=== PATIENT | male | born 1955 | race Caucasian/White ===

== ENCOUNTER 2024-08-17 13:37 | Outpatient (CLI) | payer MEDICARE, MEDICAID, SELFPAY ==
--- OUTSIDE RECORDS SUMMARY | 2018-12-31 14:56 | XMS_ITS | Encounter Summary ---
Author Organization [place] [address] Care Team Providers Care Social And Political Studies Professor Name Role Phone Viridiana Oropeza MD Primary Care Provider [phone] Encounter Details Date Type Department Care Team (Latest Contact Info) Description 12/31/2018 1:56 PM [facility] Hospital Encounter [facility] Referral Lab 1 [place] [address] Fahad Kennedy MD [address] [place] [address] Pain in right hip Social History Tobacco Use Types Packs/Day Years Used Date Smoking Tobacco: Never Passive Smoke Exposure: Never Smokeless Tobacco: Never Alcohol Use Standard Drinks/Week Comments No 0 (1 standard drink = 0.6 oz pur e alcohol) [facility] Utilities Answer Date Recorded In the past 12 months has [employer] electric, gas, oil, or water company threatened to shut off services in your home? No 07/22/2024 Overall Financial Resource Strain (CARDIA) Answe r Date Recorded How hard is it for you to pa y for the very basics like food, housing, medical care, and heating? Not hard at all 07/22/2024 PHQ-2 Answer Date Recorded PHQ-2 Total Score 0 07/22/2024 [facility] [place] of Occupat ional Health - Occupational Stress [...] things needed for daily living? No 01/21/2020 [facility] IP Transportation Answer D ate Recorded In [...] 4:08 PM EDT Genesis Dumont RN * [place] Suicide Severity Rating Scale (Q shift for [...] 6) 0 07/21/2024 4:08 PM EDT Genesis Dumont, DAVID 6. Have you ever done anythi ng, [...] documented in this encounter Plan of Treatment Upcoming Encounters Date Type Department Care Team (Late st Contact Info) Description 09/16/2024 12:15 PM EDT Office Visit [facility] [address] [place] [address] Viridiana Oropeza MD [address] [place] [address] Scheduled Orders Name Type Priority Associated Diagnoses [...] documented as of this encounter Care Teams Social And Political Studies Professor Relationship Specialty Start Date End Date Viridiana Oropeza MD [address] [place] [address] PCP - General 01/19/09 documented as of this encounter
--- OUTSIDE RECORDS SUMMARY | 2024-06-22 11:30 | XMS_ITS | Encounter Summary ---
Author Organization [place] [address] Care Team Providers Care Resident Care Associate Name Role Phone Viridiana Oropeza MD Primary Care Provider [phone] Pankaj Navarro MD Unavailable [phone] Reason for Visit * Reason Comments Controlled Substance Monitoring Here tod ay for his CSV. Leg Swelling Bilateral calf, ankl e and foot swelling. He also states that his calf's have been itching as well. 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 No 08/29/2023 Overall Financial Resource Strain (CARDIA) Answe r Date Recorded How hard is it for you to pa y for the very basics like food, housing, medical care, and heating? Not hard at all 08/29/2023 PHQ-2 Answer Date Recorded PHQ-2 Total Score 0 03/23/2024 [facility] - Occupational Stress Questionnaire Answer Date Recorded Do you feel stress - tense, restless, nervous, or anxious, or unable to sleep at night because your mind is troubled all the time - these days? Not at all 08/29/2023 Exercise Vital Sign Answer Date Recorde d On average, how many days pe r week do you engage in moderate to strenuous exercise (like a brisk walk)? 0 days 08/29/2023 On average, how many minutes do you engage in exercise at this level? 0 min 08/29/2023 Hunger Vital Sign Answer Date Recorded Within the past 12 months, y ou worried that your food would run out before you got the money to buy more. Never true 08/29/19 24 Within the past 12 months, t he food you bought just didn't last and you didn't have money to get more. Never true 08/29/2023 PRAPARE - Transportation Answer Date Re corded In the past 12 months, has l ack of transportation kept you from medical appointments or from getting medications? No 01/11 In the past 12 months, has l ack of transportation kept you from meetings, work, or from getting things needed for daily living? No 01/21/2020 [facility] IP Transportation Answer D ate Recorded In the past 12 months, has l ack of reliable transportation kept you from medical appointments, meetings, work or from getting things needed for daily living? 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 Answer Date of Assessment Author No 03/23/2024 10:00 AM Tiffany Mccullough CCMA * Is the person blind or does he/she have serious difficulty seeing even when wearing glasses? Answer Date of Assessment Author No 03/23/2024 10:00 AM Tiffany Mccullough CCMA * Does this person have serious difficulty walking or climbing stairs? Answer Date of Assessment Author Yes 03/23/2024 10:00 AM Tiffany Mccullough CCMA * Does this person have difficulty dressing or bathing? Answer Date of Assessment Author No 03/23/2024 10:00 AM Tiffany Mccullough CCMA * Because of a physical, mental or emotional condition, does this person have difficulty doing errands alone such as visiting a doctor's office or shopping? Answer Date of Assessment Author No 03/23/2024 10:00 AM Tiffany Mccullough CCMA documented as of this encounter Mental Status * Because of a physical, mental or emotional condition, does this person have serious difficulty concentrating, remembering or making decisions? Answer Entry Date Author No 03/23/2024 10:00 AM Tiffany Mccullough CCMA documented in this encounter Ordered Prescriptions Prescription Sig Dispense Quantity Refills Last Filled Start Date End Date triamcinolone (KENALOG) 0.1 % Top CreamIndications:D ermatitis Apply topically 2 times daily. Take a 2 week break after each 2 weeks of use. 80 g 2 06/22/2024 documented in this encounter Progress Notes * Viridiana Oropeza MD - 06/22/2024 11:30 AM EDT Chief Complaint Patient presents with Controlled Substance Monitoring Here today for his CSV. Leg Swelling Bilateral calf, ankle and foot swelling. He also states that his calf's have been itching as well. Was in ER for swollen legs. Given torsemide and K for a week but hasn't picked up his rx. Also c/o itching in his legs that started before surgery. He has tried some otc salve. Not helping.Has a hard time not scratching it. - was supposed to wear macrina bandage wraps but had to take them off as they made the itching worse. Controlled Med Follow-Up - Pt here for Chronic Pain Syndrome Pharmacy:[id number] - [place] [address] [phone] [phone] Controlled Contract Updated / Signed 08/17/2022- [facility] Informed Consent Updated / Signed 08/17/2022 UDS 06/22/2024 - Pending Omid as expected 06/22/2024 Care gap audit completed by Keerthi Wisdom RN on 09/24/2023. Controlled Substance Prescribing Management: The controlled substance flow sheet has been reviewed. Takes medication daily: yes. Symptoms controlled and stable with current medication: yes. Symptom level 8/10 when severe and 2/10 when not severe. Side effects from medication: no Avoids alcohol while taking this medication: yes. Has tried non-controlled substances that were unsuccessful for symptom control. No evidence of abuse/diversion. Pt informed and aware of medication's potential for abuse/dependence. Has not followed up with another provider since last evaluation for this issue. Has been compliant with elements of the controlled substance contract and recommendations outlined during last assessment. Review of Systems Constitutional: Negative. HENT: Negative. Respiratory: Negative. Cardiovascular: Negative. Gastrointestinal: Negative. Psychiatric/Behavioral: Negative. See above, otherwise noncontributory. See time date stamps in the EMR for other pertient history components reviewed as part of today's encounter. Objective: Vitals: 06/22/24 1136 BP: 114/64 Pulse: 82 SpO2: 95% Weight: (!) 301 lb (136.5 kg) Height: 5' 9 (1.753 m) Physical Exam Constitutional: Appearance: He is well-developed. HENT: Head: Normocephalic and atraumatic. Eyes: Conjunctiva/sclera: Conjunctivae normal. Pupils: Pupils are equal, round, and reactive to light. Cardiovascular: Rate and Rhythm: Normal rate and regular rhythm. Heart sounds: Normal heart sounds. No murmur heard. Pulmonary: Effort: Pulmonary effort is normal. Breath sounds: Normal breath sounds. Abdominal: General: Bowel sounds are normal. Palpations: Abdomen is soft. Tenderness: There is no abdominal tenderness. Musculoskeletal: General: Normal range of motion. Cervical back: Normal range of motion and neck supple. Skin: General: Skin is warm and dry. Neurological: Mental Status: He is alert and oriented to person, place, and time. Psychiatric: Behavior: Behavior normal. Assessment/Plan: Diagnoses and all orders for this visit: Dermatitis - triamcinolone (KENALOG) 0.1 % Top Cream; Apply topically 2 times daily. Take a 2 week break aftereach 2 weeks of use. Dispense: 80 g; Refill: 2 - stop scratching. Avoid heat and hot water. - no specific triggers - shouldn't be due to atbx etc since it predates the start of those. - no other new meds. 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 On oral amox for 3 months. Next evaluation will be in 3 months. By next evaluation, treatment failure will be considered if side effects or acceptable progress toward functional goals not achieved documented in this encounter Plan of Treatment Upcoming Encounters Date Type Department Care Team (Late st Contact Info) Description 09/16/2024 12:15 PM EDT Office Visit [facility] [address] [place] [address] Viridiana Oropeza MD [address] [place] [address] documented as of this encounter Goals Goal Patient Goal Type Associated Problems Recent Progress Patient-Stated? Author Blood Pressure < 140/90 Blood Pressure 128/56(2024 9:08 AM EDT) No Julia Chicas, RN BMI (Calculated) < 30 General 41.9(07/22/19 9:49 PM EDT) Julia Gonzalez, RN Maintain a healthy diet, exercise regularly and maintain an ideal body weight General No Kristi Balderrama CCMA HEMOGLOBIN A1C < 7.0 Result Component 6.4( 11:37 AM EDT) No Julia Chicas, RN documented as of this encounter Procedures Procedure Name Priority Date/Time Associated Diagnosis Comments COMPLIANCE OPIOID PANEL QUANT ONLY, URINE Routine 06/22/2024 12:16 PM EDT Chronic pain syndrome DDD (degenerative disc disease), cervical Medication monitoring encounter documented in this encounter Results * (ABNORMAL) COMPLIANCE OPIOID PANEL QUANT ONLY, URINE (06/22/2024 12:16 PM EDT) Medications Expected Oxycodone 06/23/2024 5:38 PM EDT [facility] Hydrocodone <50 Cutoff 50 ng/mL ng/mL 06/23/2024 5:38 PM EDT [facility] Comment:e.g., Lorcet, Lortab , Vicodin, [place]; Minor Metabolite of Codeine Dihydrocodeine <50 Cutoff 50 ng/mL ng/mL 06/23/2024 5:38 PM EDT [facility] Comment:e.g., Didrate, Parzo ne, Parlor, Synalgos; Metabolite of Hydrocodone Norhydrocodone <50 Cutoff 50 ng/mL ng/mL 06/23/2024 5:38 PM EDT [facility] Comment:Metabolite of Hydroc odone Hydromorphone <50 Cutoff 50 ng/mL ng/mL 06/23/2024 5:38 PM EDT [facility] Comment:e.g., Dilaudid; also Metabolite of Hydrocodone and Minor Metabolite of Morphine Hydromorphone Glucuronide <50 Cutoff 50 ng/mL ng/mL 06/23/2024 5:38 PM EDT [facility] Comment:Metabolite of Hydrom orphone Oxycodone 1,269(H) Cutoff 50 ng/mL ng/mL 06/23/2024 5:38 PM EDT [facility] Comment:e.g., Oxycontin, Per cocet, Endocet, Percodan, Roxicet Noroxycodone 1,237(H) Cutoff 50 ng/mL ng/mL 06/23/2024 5:38 PM EDT [facility] Comment:Metabolite of Oxycod one Oxymorphone <50 Cutoff 50 ng/mL ng/mL 06/23/2024 5:38 PM EDT [facility] Comment:e.g., Opana; Metabol ite of Oxycodone Oxymorphone Glucuronide >2,000(H) Cutoff 50 ng/mL ng/mL 06/23/2024 5:38 PM EDT [facility] Comment:Metabolite of Oxycod one Noroxymorphone >2,000(H) Cutoff 50 ng/mL ng/mL 06/23/2024 5:38 PM EDT [facility] Comment:Metabolite of Oxycod one, and Oxymorphone, Noroxycodone Metabolite Tramadol <50 Cutoff 50 ng/mL ng/mL 06/23/2024 5:38 PM EDT [facility] Comment:e.g., Ultram, ConZip S-Fumgztrbb-fju-Tra madol <50 Cutoff 50 ng/mL ng/mL 06/23/2024 5:38 PM EDT [facility] Comment:Metabolite of Tramad ol Codeine <50 Cutoff 50 ng/mL ng/mL 06/23/2024 5:38 PM EDT [facility] Comment:e.g., Acetaminophen w/Codeine, Tylenol3 w/ Codeine Codeine Glucuronide <50 Cutoff 50 ng/mL ng/mL 06/23/2024 5:38 PM EDT [facility] Comment:Metabolite of Codein e Meperidine <50 Cutoff 50 ng/mL ng/mL 06/23/2024 5:38 PM EDT [facility] Comment:e.g., Demerol, Pethi dine Normeperidine <50 Cutoff 50 ng/mL ng/mL 06/23/2024 5:38 PM EDT [facility] Comment:Metabolite of Meperi dine Morphine <50 Cutoff 50 ng/mL ng/mL 06/23/2024 5:38 PM EDT [facility] Comment:e.g., MS Contin, Jessica anol; Metabolite of Codeine and Heroin; may reflect poppy seed ingestion Ektrymck-6-Cqgswftt elio <25 Cutoff 25 ng/mL ng/mL 06/23/2024 5:38 PM EDT [facility] Comment:Metabolite of Morphi ne. Lgenuaga-5-Hdipdnqw elio <25 Cutoff 25 ng/mL ng/mL 06/23/2024 5:38 PM EDT [facility] Comment:Metabolite of Morphi ne. Naloxone <25 Cutoff 25 ng/mL ng/mL 06/23/2024 5:38 PM EDT [facility] Comment:e.g., Narcan, Evzio Buprenorphine <5 Cutoff 5 ng/mL ng/mL 06/23/2024 5:38 PM EDT [facility] Comment:e.g., Suboxone, Subu sindhu,Sublocade, Buprenex Buprenorphine Glucuronide <10 Cutoff 10 ng/mL ng/mL 06/23/2024 5:38 PM EDT [facility] Comment:Buprenorphine Metabo lite Norbuprenorphine <5 Cutoff 5 ng/mL ng/mL 06/23/2024 5:38 PM EDT [facility] Comment:Buprenorphine Metabo lite Norbuprenorphine Glucuronide <10 Cutoff 10 ng/mL ng/mL 06/23/2024 5:38 PM EDT [facility] Comment:Buprenorphine Metabo lite Fentanyl <1 Cutoff 1 ng/mL ng/mL 06/23/2024 5:38 PM EDT [facility] Comment:e.g.,Duragesic, Oral et, Actiq, Sublimaze, Innovar, Lazanda Norfentanyl <1 Cutoff 1 ng/mL ng/mL 06/23/2024 5:38 PM EDT [facility] Comment:Metabolite of Fentan yl 6-Monoacetylmorphin e (6MAM) <10 Cutoff 10 ng/mL ng/mL 06/23/2024 5:38 PM EDT [facility] Comment:Metabolite of Heroin ; Morphine is expected Methadone <50 Cutoff 50 ng/mL ng/mL 06/23/2024 5:38 PM EDT [facility] Comment:e.g., Dolophine, Met hadose, Amidone EDDP <50 Cutoff 50 ng/mL ng/mL 06/23/2024 5:38 PM EDT [facility] Comment:Methadone Metabolite Tapentadol <50 Cutoff 50 ng/mL ng/mL 06/23/2024 5:38 PM EDT [facility] [employer] [facility] Comment:Nucynta Tapentadol-Glucuron elio <50 Cutoff 50 ng/mL ng/mL 06/23/2024 5:38 PM EDT [facility] [employer] Comment:Metabolite of Tapent adol Urine Creatinine 121.0 mg/dL 06/24/19 25 5:38 PM EDT [facility] Comment: Greater than 20: Consistent with valid sample Greater than 2 but less than 20: Possible dilution Less than 2: Questionable valid sample Urine STRUCTURE OF URINARY TRACT PROPER / Unknown 06/22/2024 12:16 PM EDT 06/22/2024 12:16 PM EDT Narrative [facility] [employer] [facility] - 06/23/2024 5:38 PM EDT The absence of expected drug(s), and/or drug metabolite(s), may indicate non-compliance, diluted or adulterated urine, poor drug absorption, concentration of drug below the cut-off, timing of specimen collection relative to administration of drug, or limitations of testing. Specimens are held for 7 days. This test was developed, and its performance characteristics determined by [facility] ([facility]). It has not been cleared or approved by the FDA. This test is used for clinical purposes. It should not be regarded as investigational or for research. [facility] is certified under the Clinical Laboratory Improvement Amendments (CLIA) as qualified to perform high complexity clinical laboratory testing. 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 Cancelled by 04/01/2024 06/23/19 ketoconazole (NIZORAL) 2 % Top ShampooIndications:Sebo rrheic keratosis Apply topically Three times weekly. Cancelled by 01/07/2024 06/22/2024 documented as of this encounter Historical Medications * This list may reflect changes made after this encounter. tamsulosin (FLOMAX) 0.4 mg Oral Capsule 0.4 mg daily. 06/17/2024 amoxicillin (AMOXIL) 500 mg Oral Capsule 500 mg 2 times daily. 06/17/2024 06/27/2024 added in this encounter Additional Health Concerns Assessment Noted Time A fall risk assessment has been complete d for the patient 01/06/2024 10:53 AM EST documented as of this encounter Care Teams Resident Care Associate Relationship Specialty Start Date End Date Viridiana Oropeza MD [address] [place] [address] PCP - General 01/19/09 Pankaj Navarro MD [address] [place] [address] Physician Otolaryngology 09/18/23 documented as of this encounter
--- OUTSIDE RECORDS SUMMARY | 2024-06-27 10:42 | XMS_ITS | Encounter Summary ---
Author Organization [place] [address] Care Team Providers [employer] Supervisor Name Role Phone Viridiana Oropeza MD Primary Care Provider [phone] Pankaj Navarro MD Unavailable [phone] Reason for Visit * Reason Comments Rash States his rash is a ll over his body. Onset a couples weeks ago. Seen here last week for same concern but having no relief. Encounter Details Date Type Department Care Team (Late st Contact Info) Description 06/27/2024 10:42 AM EDT - 06/27/2024 12:11 PM EDT Emergency [facility] [place] [address] Mango Carvajal MD [address] [place] [address] Allergic drug rash (Primary Dx) Discharge Disposition: Home or Self Care Social History Tobacco Use Types Packs/Day Years Used Date Smoking Tobacco: Never Passive Smoke Exposure: Never Smokeless Tobacco: Never Alcohol Use Standard Drinks/Week Comments No 0 (1 standard drink = 0.6 oz pur e alcohol) [facility] Utilities Answer Date Recorded In the [...] Date Recorded PHQ-2 Total Score 0 03/23/2024 [facility] Occupat ional Health - Occupational Stress [...] things needed for daily living? No 01/21/2020 [facility] IP Transportation Answer D ate Recorded [...] Sign Reading Time Taken Comments Blood Pressure 150/84 06/27/2024 10:48 AM EDT Pulse 103 06/27/2024 10:34 AM EDT Temperature 37.1 C (98.8 F) 06/27/2024 11:03 AM EDT Respiratory Rate 18 06/27/2024 10:3 4 AM EDT Oxygen Saturation 95% 06/27/2024 10: 34 AM EDT Inhaled Oxygen Concentration - - Weight 134.2 kg (295 lb 14.4 oz) 2024 10:39 AM EDT Height 175.3 cm (5' 9 ) 06/27/2024 10:3 9 AM EDT Body Mass Index 43.7 06/27/2024 10:39 AM EDT documented in this encounter Functional Status * Is the person deaf or does he/she have serious difficulty hearing? Answer Date of Assessment Author No 03/23/2024 10:00 AM LENORA UTiffany rios CCMA * Is the person blind or does he/she have serious difficulty seeing even when wearing glasses? Answer Date of Assessment Author No 03/23/2024 10:00 AM EST UebelTiffany nicknancy Leon CCMA * Does this person have serious difficulty walking or climbing stairs? Answer Date of Assessment Author Yes 03/23/2024 10:00 AM EST UebelTiffany CCMA * Does this person have difficulty dressing or bathing? Answer Date of Assessment Author No 03/23/2024 10:00 AM EST UebTiffany corona CCMA * Because of a physical, mental or emotional condition, does this person have difficulty doing errands alone such as visiting a doctor's office or shopping? Answer Date of Assessment Author No 03/23/2024 10:00 AM EST UebcjTiffany CCMA * Suicide Severity Rating Answer Date of Assessment Author No Risk 06/27/2024 11:03 AM EDT Fidencio Rodriguez RN * [place] Suicide Severity Rating Scale (Q shift for moderate and high) Question Answer Date of Assessment Author 1. In the past month, have y ou wished you were or wished you could go to sleep and not wake up? 0 06/27/2024 11:03 AM EDT Adenike Roca RN 2. In the past month, have y ou actually had any thoughts of killing yourself? (If no, skip to question 6) 0 06/27/2024 11:03 AM EDT Adenike Rodriguez RN 6. Have you ever done anythi ng, started to do anything, or prepared to do anything to end your life? 0 06/27/2024 11:03 AM EDT Adenike Heredia RN documented as of this encounter Mental Status * Because of a physical, mental or emotional condition, does this person have serious difficulty concentrating, remembering or making decisions? Answer Entry Date Author No 03/23/2024 10:00 AM Tiffany Mccullough CCMA documented in this encounter Discharge Instructions * Discharge Instructions* Mango Carvajal MD - 06/27/2024 11:34 AM EDT Recommend taking Zyrtec early in the day and then you can still take a 25 mg Benadryl tablet to help with sleep at nighttime Stop using steroid creams on your skin. If you want to use some anti-itch lotion such as Aveeno lotion or oatmeal bath, that would be fine Take Pepcid once or twice a day until the rash goes away. You have been given a steroid medication in the emergency department that lasts a few days. You may see a temporary increase in your blood sugars Discontinue amoxicillin and start clindamycin. However, call your infectious disease doctor on Saturday to see if this is an acceptable substitute from their standpoint. documented in this encounter Medications at Time of Discharge acetaminophen 325 mg Oral Tab Take 650 mg by mouth every 8 hours. 04/01/2024 Blood Sugar Diagnostic Misc Strip Check BS bid 50 Each 11 04/02/2024 Blood-Glucose Meter Misc Kit Check BS bid 1 Kit 04/02/2024 cetirizine (ZYRTEC) 10 mg Oral Tablet Take 1 Tablet by mouth daily as needed for Allergies. 30 Tablet 06/27/2024 cholecalciferol, vitamin D3, 25 mcg (1,000 unit) Oral Tablet Take 1 Tab by mouth daily. famotidine (PEPCID) 20 mg Oral Tablet Take 1 Tablet by mouth daily as needed for Other (allergic rash). 30 Tablet 06/27/2024 hydroCHLOROthiazi de 25 mg Oral Tablet Take 1 Tablet by mouth daily. 30 Tablet 06/03/2024 Lancets Misc Misc Check BS bid 50 Each 11 04/02/2024 lisinopriL (PRINIVIL;ZESTRIL ) 2.5 mg Oral TabletIndications :Type 2 diabetes mellitus without complication, without long-term current use of insulin (HCC) Take 1 Tablet by mouth daily. 90 Tablet 1 06/08/2024 metFORMIN (GLUCOPHAGE) 1,000 mg Oral TabletIndications :Hyperlipidemia associated with type 2 diabetes mellitus (HCC) Take 1 Tablet by mouth 2 times daily. 180 Tablet 1 05/27/2024 rosuvastatin (CRESTOR) 10 mg Oral TabletIndications :Type 2 diabetes mellitus without complication, without long-term current use of insulin (HCC) Take 1 Tablet by mouth nightly. 90 Tablet 1 06/08/2024 tamsulosin (FLOMAX) 0.4 mg Oral Capsule 0.4 mg daily. 06/17/2024 tiZANidine (ZANAFLEX) 4 mg Oral TabletIndications :Spondylosis of lumbosacral spine without myelopathy TAKE 1 TABLET BY MOUTH THREE TIMES A DAY NEEDED FOR MUSCLE SPASM 90 Tablet 5 06/08/2024 triamcinolone (KENALOG) 0.1 % Top CreamIndications: Dermatitis Apply topically 2 times daily. Take a 2 week break after each 2 weeks of use. 80 g 2 06/22/2024 clindamycin (CLEOCIN) 300 mg Oral Capsule Take 1 Capsule by mouth 3 times daily for 7 days. 21 Capsule 06/27/2024 potassium chloride (KLOR-CON 10) 10 mEq Oral Tablet Sustained Release Take 1 Tablet by mouth daily. 7 Tablet 06/18/2024 5 documented as of this encounter Ordered Prescriptions Prescription Sig Dispense Quantity Refills Last Filled Start Date End Date famotidine (PEPCID) 20 mg Oral Tablet Take 1 Tablet by mouth daily as needed for Other (allergic rash). 30 Tablet 06/27/2024 cetirizine (ZYRTEC) 10 mg Oral Tablet Take 1 Tablet by mouth daily as needed for Allergies. 30 Tablet 06/27/2024 clindamycin (CLEOCIN) 300 mg Oral Capsule Take 1 Capsule by mouth 3 times daily for 7 days. 21 Capsule 06/27/2024 5 documented in this encounter Discharge Disposition Disposition Code Departure Means Destination Comment s Home or Self [facility] documented in this encounter ED Notes * Mango Carvajal MD - 06/27/2024 10:32 AM EDT Chief Complaint Patient presents with Rash States his rash is all over his body. Onset a couples weeks ago. Seen here last week for same concern but having no relief. This is a 68-year-old gentleman who comes in with an itchy rash for several days. Saw his primary doctor and was given some Kenalog cream which she has used a little bit of but continues to have symptoms. Patient had right hip revision surgery secondary to infection. He was on IV antibiotics for quite a while and then transition to oral amoxicillin within the past week or so. Has been taking thistwice a day. No prior history of known allergy to antibiotics. Reports no lightheadedness or difficulty swallowing or any significant vomiting or diarrhea. Patient History Allergies Allergen Reactions Empagliflozin Hives Hives, bad dreams Hives, bad dreams Hives, bad dreams Home Medications: Prior to Admission medications Medication Sig Start Date End Date Taking? Authorizing Provider acetaminophen 325 mg Oral Tab Take 650 mg by mouth every 8 hours. 04/01/24 Provider, Historical Blood Sugar Diagnostic Misc Strip Check BS bid 04/02/24 Viridiana Oropeza MD Blood-Glucose Meter Misc Kit Check BS bid 04/02/24 Viridiana Oropeza MD cetirizine (ZYRTEC) 10 mg Oral Tablet Take 1 Tablet by mouth daily as needed for Allergies. 06/27/24Mango Carvajal MD cholecalciferol, vitamin D3, 25 mcg (1,000 unit) Oral Tablet Take 1 Tab by mouth daily. Provider, Historical clindamycin (CLEOCIN) 300 mg Oral Capsule Take 1 Capsule by mouth 3 times daily for 7 days. / Mango Carvajal MD famotidine (PEPCID) 20 mg Oral Tablet Take 1 Tablet by mouth daily as needed for Other (allergic rash). 06/27/24 Mango Carvajal MD hydroCHLOROthiazide 25 mg Oral Tablet Take 1 Tablet by mouth daily. 06/03/24 Viridiana Oropeza MD Lancets [facility] Misc Check BS bid 04/02/24 Viridiana Oropeza MD lisinopriL (PRINIVIL;ZESTRIL) 2.5 mg Oral Tablet Take 1 Tablet by mouth daily. 06/08/24 Anita Oropeza MD metFORMIN (GLUCOPHAGE) 1,000 mg Oral Tablet Take 1 Tablet by mouth 2 times daily. 05/27/24 Viridiana Oropeza MD oxyCODONE-acetaminophen (PERCOCET) 10-325 mg Oral Tablet TAKE 1 TABLET BY MOUTH EVERY 8 HOURS NEEDED FOR CHRONIC PAIN 06/08/24 Viridiana Oropeza MD potassium chloride (KLOR-CON 10) 10 mEq Oral Tablet Sustained Release Take 1 Tablet by mouth daily.06/18/24 Adenike Edmond APRN rosuvastatin (CRESTOR) 10 mg Oral Tablet Take 1 Tablet by mouth nightly. 06/08/24 Viridiana Oropeza MD tamsulosin (FLOMAX) 0.4 mg Oral Capsule 0.4 mg daily. 06/17/24 Toan Ta tiZANidine (ZANAFLEX) 4 mg Oral Tablet TAKE 1 TABLET BY MOUTH THREE TIMES A DAY NEEDED FOR MUSCLE SPASM 06/08/24 Viridiana Oropeza MD triamcinolone (KENALOG) 0.1 % Top Cream Apply topically 2 times daily. Take a 2 week break after each 2 weeks of use. 06/22/24 Viridiana Oropeza MD Past Medical History: Past Medical History: Diagnosis Date Arthritis Hyperlipidemia Hyperlipidemia associated with type 2 diabetes mellitus (HCC) 08/12/2015 Iron deficiency anemia due to dietary causes 08/30/2023 Obesity 05/09/2010 Obesity, Class III, BMI 40-49.9 (morbid obesity) 05/02/2017 Body mass index is 44.3 kg/m??. Sepsis with acute hypoxic respiratory failure (HCC) 08/28/2023 Type 2 diabetes mellitus without complication (HCC) 01/25/2015 Dx 12/26, A1c 6.9. NIDDM on meds times 6 months Social History: reports that he has never smoked. He has never been exposed to tobacco smoke. He has never used smokeless tobacco. He reports that he is not currently sexually active. He reports thathe does not drink alcohol and does not use drugs. E-Cigarettes (such as Vapes or Juul) E-Cigarette Use Never User Family History: Family History Problem Relation Age of Onset Diabetes Father Anesth Problems Neg Hx Surgical History: Past Surgical History: Procedure Laterality Date CIRCUMCISION N/A 03/15/2017 CIRCUMCISION; Surgeon: Jameson Rodriguez MD; Location: [facility] OR; Service: Urology COLONOSCOPY COLONOSCOPY N/A 06/16/2015 COLONOSCOPY ; Surgeon: Pankaj Chavez MD; Location: [facility] ENDOSCOPY; Service: Endoscopy HIP SURGERY Bilateral 1996 nasima hip repacements IR 2 LEVEL BILATERAL MEDIAL BRANCH BLOCK LUM SAC 02/18/2020 IR 2 LEVEL BILATERAL MEDIAL BRANCH BLOCK LUM SAC 02/18/2020 [facility] IMAGING SHOULDER ARTHROSCOPY Right 08/28/2016 RIGHT SHOULDER ARTHROSCOPIC ROTATOR CUFF REPAIR, DECOMPRESSION ACROMIOPLASTY ACROMIOCLAVICULAR JOINT EXCISION; Surgeon: Robbi Alvarez MD; Location: [facility] MAIN OR; Service: Orthopedics SHOULDER SURGERY Review of Systems Review of Systems Constitutional: Negative for activity change, appetite change, chills and fever. HENT: Negative for congestion and sore throat. Eyes: Negative for visual disturbance. Respiratory: Negative for cough and shortness of breath. Cardiovascular: Negative for chest pain. Gastrointestinal: Negative for abdominal pain, diarrhea and vomiting. Genitourinary: Negative for dysuria, frequency and urgency. Musculoskeletal: Negative for back pain and neck pain. Skin: Positive for rash. Neurological: Negative for dizziness, syncope and headaches. Psychiatric/Behavioral: Negative for behavioral problems and confusion. All other systems reviewed and are negative. Physical Exam Blood pressure 150/84, pulse 103, temperature 98.8 ??F (37.1 ??C), temperature source Oral, resp. rate 18, height 5' 9 (1.753 m), weight 295 lb 14.4 oz (134.2 kg), SpO2 95%. Physical Exam Vitals (Appropriate PPE donned and doffed by me, in accordance with hospital recommendations, during all encounters with this patient) and nursing note reviewed. Constitutional: General: He is not in acute distress. Appearance: Normal appearance. He is well-developed. He is obese. He is not ill- appearing, toxic-appearing or diaphoretic. Interventions: He is not intubated. HENT: Head: Normocephalic. Nose: Nose normal. Mouth/Throat: Mouth: Mucous membranes are moist. Eyes: General: No scleral icterus. Extraocular Movements: Extraocular movements intact. Conjunctiva/sclera: Conjunctivae normal. Pupils: Pupils are equal, round, and reactive to light. Cardiovascular: Rate and Rhythm: Normal rate and regular rhythm. Pulses: Normal pulses. Heart sounds: Normal heart sounds. Pulmonary: Effort: Pulmonary effort is normal. No respiratory distress. He is not intubated. Breath sounds: No stridor. Abdominal: General: There is no distension. Tenderness: There is no abdominal tenderness. Musculoskeletal: General: No deformity. Normal range of motion. Cervical back: Normal range of motion and neck supple. Skin: Coloration: Skin is not jaundiced. Findings: Rash present. Comments: Flonase erythematous diffuse papular rash blanches Neurological: General: No focal deficit present. Mental Status: He is alert and oriented to person, place, and time. Mental status is at baseline. GCS: GCS eye subscore is 4. GCS verbal subscore is 5. GCS motor subscore is 6. Motor: No abnormal muscle tone. Coordination: Coordination normal. Psychiatric: Mood and Affect: Mood normal. Speech: Speech normal. Behavior: Behavior normal. Procedures Radiology/EKG/Labs: Labs Reviewed - No data to display No orders to display ED Course: Appropriate laboratory and radiology studies reviewed This looks most consistent with a drug reaction. No petechia, no cellulitis. Will discontinue his amoxicillin and changed to clindamycin but I did ask that he call his infectious disease doctor in 2 days to make sure this is reasonable from their standpoint. I did review old records extensively andcould not find any specific cultures to base treatment on. Patient otherwise well-appearing with nosystemic illness. We discharged after 1 dose of Decadron to continue antihistamines and topical itch medicines ED Clinical Impression: 1. Allergic drug rash Critical Care time MDM Medical Decision Making Problems Addressed: Allergic drug rash: complicated acute illness or injury Risk OTC drugs. Prescription drug management. Condition at Discharge/Transfer from Department: Stable This chart was completed using voice recognition technology and may contain unintended errors Mango Carvajal MD 06/27/24 1327 documented in this encounter Plan of Treatment Upcoming Encounters Date Type Department Care Team (Late st Contact Info) Description 09/16/2024 12:15 PM EDT Office Visit [facility] [address] [place] [address] Viridiana Oropeza MD [address] [place] [address] documented as of this encounter Goals Goal [...] as of this encounter Visit Diagnoses Diagnosis Allergic drug rash- Primary Dermatitis due to drugs and medicines taken internally documented in this encounter Administered Medications Inactive Administered Medications - up to 1 most recent administrations Medication Order MAR Action Action Date Dose Rate Site dexAMETHasone (DECADRON) tablet 8 mg 8 mg, Oral, ONCE, 1 dose, On 06/27/24 at 1145 Given 06/27/2024 11:59 AM EDT 8 mg famotidine (PEPCID) tablet 20 mg 20 mg, Oral, ONCE, 1 dose, On 06/27/24 at 1145 Given 06/27/2024 11:59 AM EDT 20 mg loratadine (CLARITIN) tablet 10 mg 10 mg, Oral, DAILY, First dose on 06/27/24 at 1145, Until Discontinued Given 06/27/2024 11:59 AM EDT 10 mg documented in this encounter Discontinued Medications Medication Sig Discontinue Reason Start Date End Da te amoxicillin (AMOXIL) 500 mg Oral Capsule 500 mg 2 times daily. Cancelled by 06/17/2024 06/27/2024 documented as of this encounter Active and Recently Administered Medications Times are shown in EDT. Scheduled Medication Order 06/25/2024 06/26/2024 06/27/2024 dexAMETHasone (DECADRON) tablet 8 mg (COMPLETED) 8 mg, Oral, ONCE, 1 dose, On 06/27/24 at 1145 1159 (Given - Provid er: Adenike Rodriguez RN) famotidine (PEPCID) tablet 20 mg (COMPLETED) 20 mg, Oral, ONCE, 1 dose, On 06/27/24 at 1145 1159 (Given - Provid er: Adenike Rodriguez RN) loratadine (CLARITIN) tablet 10 mg 10 mg, Oral, DAILY, First dose on 06/27/24 at 1145, Until Discontinued 1159 (Given - Provid er: Adenike Rodriguez RN) documented in this encounter Additional Health Concerns Assessment Noted Time A fall risk assessment has been complete d for the patient 01/06/2024 10:53 AM EST documented as of this encounter Care Teams [employer] Supervisor Relationship Specialty Start Date End Date Viridiana Oropeza MD [address] [place] [address] PCP - General 01/19/09 Pankaj Navarro MD [address] [place] [id number] Physician Otolaryngology 09/18/23 documented as of this encounter
--- OUTSIDE RECORDS SUMMARY | 2024-07-20 10:30 | XMS_ITS | Encounter Summary ---
Author Organization [facility] Address 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, subsequent encounter Wilfredo Forte MD [address] [place] [phone] Phone: tel: fax: Referral ID Status Reason Start Date Expiration Date Visits Re quested Visits Authorized [id number] Closed 06/15/2024 12/15/2025 1 1 Encounter Details Date Type Department Care Team (Late st Contact Info) Description 07/20/2024 10:30 AM EDT Office Visit [address] [phone] Wilfredo Forte MD [address] [place] [phone] Infection of prosthetic joint, subsequent encounter (Primary Dx) Social History Tobacco Use Types Packs/Day Years Used Date Smoking Tobacco: Never Passive Smoke Exposure: Never Smokeless Tobacco: Never Alcohol Use Standard Drinks/Week Comments Not Currently 0 (1 standard drink = 0.6 oz pur e alcohol) none for 7 years Humiliation, Afraid, Rape, and Kick questionnair e Answer Date Recorded Within the last year, have y ou been afraid of your partner or ex-partner? No 05/04/2024 Within the last year, have y ou been humiliated or emotionally abused in other ways by your partner or ex-partner? No Within the last year, have y ou been kicked, hit, slapped, or otherwise physically hurt by your partner or ex-partner? No 05/04/2024 Within the last year, have y ou been raped or forced to have any kind of sexual activity by your partner or ex-partner? No 05/04/2024 Social Connection and Isolation Panel Answer Date Recorded In a typical week, how many times do you talk on the phone with family, friends, or neighbors? Patient unable to answer 05/04/2024 How often do you get togethe r with friends or relatives? Patient unable to answer 05/04/2024 How often do you attend [facility] or [facility] services? Patient unable to answer 05/04/2024 Do you belong to any clubs o r organizations such as mosque groups, unions, fraternal or athletic groups, or school groups? Patient unable to answer 05/04/2024 How often do you attend meet ings of the clubs or organizations you belong to? Patient unable to answer 05/04/2024 Are you , , di vorced, , never , or living with a partner? Patient unable to answer 05/04/2024 AUDIT-C Answer Date Recorded Q1: How often do you have a drink containing alcohol? Patient unable to answer 05/04/2024 Q2: How many drinks containi ng alcohol do you have on a typical day when you are drinking? Patient unable to answer Q3: How often do you have si x or more drinks on one occasion? Patient unable to answer 05/04/2024 PHQ-2 Answer Date Recorded Patient Health Questionnaire-2 Score 0 06/15/2024 [facility] - Occupational Stress Questionnaire Answer Date Recorded Do you feel stress - tense, restless, nervous, or anxious, or unable to sleep at night because your mind is troubled all the time - these days? Patient unable to answer 05/04/2024 Exercise Vital Sign Answer Date Recorde d On average, how many days pe r week do you engage in moderate to strenuous exercise (like a brisk walk)? Patient unable to answer 05/04/2024 Minutes of Exercise per Session Not on file 05/04/2024 Hunger Vital Sign Answer Date Recorded Within the past 12 months, y ou worried that your food would run out before you got the money to buy more. Never true 05/05/19 25 Within the past 12 months, t he food you bought just didn't last and you didn't have money to get more. Never true 05/04/2024 PRAPARE - Transportation Answer Date Re corded In the past 12 months, has l ack of transportation kept you from medical appointments or from getting medications? No 04/12 In the past 12 months, has l ack of transportation kept you from meetings, work, or from getting things needed for daily living? No 05/04/2024 PHQ-9 Answer Date Recorded Patient Health Questionnaire-9 Score 0 06/15/2024 Housing Stability Vital Sign Answer Wally e Recorded In the last 12 months, was t here a time when you were not able to pay the mortgage or rent on time? No 05/04/2024 In the past 12 months, how m any times have you moved where you were living? 1 05/04/2024 At any time in the past 12 m [facility], were you homeless or living in a nursing home (including now)? No 05/04/2024 Utilities Answer Date Recorded In the past 12 months has th e electric, gas, oil, or water company threatened to shut off services in your home? No 05/04/2024 Sex and Gender Information Value Date Recorded Sex Assigned at Male 05/07/2024 12:48 PM EDT Legal Sex Male 3:06 PM EST Gender Identity Male 05/07/2024 12:48 PM EDT Sexual Orientation Not on file documented as of this encounter Last Filed Vital Signs Vital Sign Reading Time Taken Comments Blood Pressure 113/76 07/20/2024 10:01 AM EDT Pulse 103 07/20/2024 10:01 AM EDT Temperature 36.6 C (97.9 F) 07/20/2024 10:01 AM EDT Respiratory Rate - - Oxygen Saturation 96% 07/20/2024 10:01 AM EDT Inhaled Oxygen Concentration - - Weight 127 kg (280 lb 6.8 oz) 07/20/2024 10:01 A M EDT Height 175.3 cm (5' 9 ) 07/20/2024 10:01 AM EDT Body Mass Index 41.41 07/20/2024 10:01 AM EDT documented in this encounter Miscellaneous Notes * Progress Notes - Wilfredo Forte MD - 07/20/2024 10:30 AM EDT Infectious Diseases Outpatient Follow-Up Chief Complaint: follow up for prosthetic joint infection HPI Jani Chauhan is a 68 y.o. 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 I saw him last on 06/15/24. He underwent a right KEEGAN 29 yrs ago and then had revision arthroplasty on 03/26/24 at for mechanical failure. He was reportedly doing well but developed pain and difficulty ambulating in April. He went to [facility] for evaluation. They performed a CT scan that demonstrated a [id number] cm rim enhancing fluid collection involving the hip prosthesis. He was transferred to [facility] to the OR on 05/02/24 for washout and debridement. Cultures from that surgery grew enterococcus faecalis. He was started on ceftriaxone and ampicillin. He was taken again to the OR on 05/07/24 for repeat debridement at which time he had complete implant removal and then a new implant placed. Hewas discharged to home on IV ceftriaxone and ampicillin which he continued for 6 weeks. He comletedthat on 06/15/24. At his last visit on 06/15, he was doing well. He was ambulating with the help of a walker and his pain was improving. His CRPs had improved to 13. I went ahead and removed his PICC line at that visit and transitioned him to oral amoxicillin 1 g TID for conptinuation of oral abx therap with a plan tocontinue for 3 months. Today he reports to not be doing well. He had developed hives after starting the amoxicillin. He went to the ED at [facility] and he was taken off the amoxicillin and given famotidine and ceterizine. His hives resolved. He was given clindamycin to take instead but he says he has not continued to take that. He has not been on any antibiotics for the last 3 weeks. Regarding his right hip, he reports that he is not having any hip pain. He has been weak. He is using a walker and is continuing to do physical therapy at his home. He says they have been happy with his progress. He has not had a follow up with orthopedic surgery since 05/25/24. He also notes having 1-2 episodes of loose stools daily. Overall he states he feels bad . Review of Systems All other systems reviewed and are negative. 14 point review of symptoms negative except as documented in the HPI. Objective There were no vitals filed for this visit. Physical Exam Vitals reviewed. Constitutional: Appearance: He is obese. Cardiovascular: Rate and Rhythm: Normal rate and regular rhythm. Heart sounds: No murmur heard. Pulmonary: Effort: Pulmonary effort is normal. Breath sounds: Normal breath sounds. Abdominal: General: There is distension. Musculoskeletal: General: Normal range of motion. Skin: Comments: Right hip surgical site appears well healed, there is no erythema, swelling or drainage associated with the site. Neurological: Mental Status: He is alert. Labs: Lab Results Component Value Date WBC 8.1 06/02/2024 HGB 8.00 06/02/2024 HCT 27.8 (L) 05/25/2024 MCV 98 05/25/2024 PLT 248 06/02/2024 Chemistry Lab Results Component Value Date/Time NA 143 06/18/2024 1531 NA 146 (H) 05/25/2024 1300 K 3.9 06/18/2024 1531 K 3.5 (L) 05/25/2024 1300 CL 102 06/18/2024 1531 CL 105 05/25/2024 1300 CO2 26 05/25/2024 1300 BUN 14 06/18/2024 1531 BUN 8 05/25/2024 1300 CREATININE 1.72 (H) 06/18/2024 1531 CREATININE 1.22 (H) 05/25/2024 1300 Lab Results Component Value Date/Time CALCIUM 9.4 06/18/2024 1531 CALCIUM 9.3 05/25/2024 1300 ALKPHOS 80 06/08/2024 0000 ALKPHOS 91 05/25/2024 1300 AST 9 06/08/2024 0000 AST 16 05/25/2024 1300 ALT 5 06/08/2024 0000 ALT 9 (L) 05/25/2024 1300 BILITOT 0.2 06/08/2024 0000 BILITOT 0.2 05/25/2024 1300 CRP 06/08 - 13.5 06/02 - 26.4 05/25 - 36.6 05/02 - 255 Assessment/Plan Jani Chauhan is a 68 y.o. male presenting for follow-up in the ID clinic for early right hip prosthetic joint infection 2/2 enterococcus faecalis. He underwent initial washout and debridement on 05/02/24 with cultures that grew enterococcus faecalis. He was taken back to the OR on 05/07/24 for hardware exchange. The old implant was removed and a new implant was placed. He then completed 6 weeks of IV ceftriaxone and ampicillin on 06/15/24. The plan was to transition to amoxicillin for another 3 months but he developed hives on this prompting him to go to the [facility] aimee 06/27/24. He was take off the amoxicillin at that time. He is currnelty not on any abx. He denies having any hip paintoday. His right hip incision is well healed. At this point, I think it is best to hold any additional abx and continue to monitor him. He notes to be feeling poorly overall but has a hard time elaborating on that. He is weak and his having some looses tools. He is continue to do physical therapy. Plan: - will check labs today to include a CBC, CMP and CRP now that he has been off abx for at least 3 weeks - if CRP is normal or near normal, will not restart abx and monitor off of them - advised him to contact orthopedic surgery for follow up. documented in this encounter Plan of Treatment Not on file documented as of this encounter Goals Goal Patient Goal Type Associated Problems Recent Progress Patient-Stated? Author Ashtyn barrientos Goal Care Plan Autogenerated Problem No Chris Ortiz Goal Care Plan Autogenerated Problem No Mohan Wagoner PA documented as of this encounter Results * (ABNORMAL) C-reactive protein (07/20/2024 10:40 AM EDT) CRP, Plasma 96.8(H) <=8.0 mg/L 07/20/2024 12:33 PM EDT [facility] Blood Venous blood specimen / Unknown Venipuncture / Unknown 07/20/2024 10:40 AM EDT 07/20/2024 10:40 AM EDT Narrative [facility] - 07/20/2024 12:33 PM EDT This CRP test is appropriate for assessment of infection, systemic inflammation and/or tissue injury. To assess cardiovascular disease risk order high sensitivity CRP (CRPH). us Wilfredo Forte MD LAB BLOOD ORDERABLES Final Re sult [facility] [address] [place] [address] * (ABNORMAL) Comprehensive Metabolic Panel, Plasma (07/20/2024 10:40 AM EDT) Glucose, Plasma 129(H) 74 - 99 mg/dL 07/20/2024 12:33 PM EDT [facility] BUN, Plasma 33(H) 8 - 23 mg/dL 07/20/2024 12:33 PM EDT [facility] Creatinine, Plasma 2.15(H) 0.70 - 1.20 mg/dL 07/20/2024 12:33 PM EDT [facility] BUN/Creatinine Ratio 15 07/20/2024 12:33 PM EDT [facility] Sodium, Plasma 137 136 - 145 mmol/L 07/20/2024 12:33 PM EDT [facility] Potassium, Plasma 4.4 3.6 - 4.9 mmol/L 07/20/2024 12:33 PM EDT [facility] Chloride, Plasma 104 97 - 107 mmol/L 07/20/2024 12:33 PM EDT [facility] CO2, Plasma 19(L) 22 - 29 mmol/L 07/20/2024 12:33 PM EDT [facility] Anion Gap 14 6 - 16 mmol/L 07/20/2024 12:33 PM EDT [facility] Total Calcium, Plasma 9.3 8.9 - 10.2 mg/dL 07/20/2024 12:33 PM EDT [facility] Total Protein 6.6 6.3 - 7.9 g/dL 07/20/2024 12:33 PM EDT [facility] Albumin, Plasma 3.5 3.5 - 5.2 g/dL 07/20/2024 12:33 PM EDT [facility] AST, Plasma 13 10 - 50 U/L 07/20/2024 12:33 PM EDT [facility] ALT, Plasma 13 10 - 50 U/L 07/20/2024 12:33 PM EDT [facility] Alkaline Phosphatase, Plasma 96 40 - 115 U/L 07/20/2024 12:33 PM EDT [facility] Total Bilirubin, Plasma <0.2(L) 0.2 - 1.1 mg/dL 07/20/2024 12:33 PM EDT [facility] eGFRcr 32.9 mL/min/1.7 3m*2 07/20/2024 12:33 PM EDT [facility] Comment:Reported eGFRcr in m L/min/1.73m2 is based the CKD-EPI 2020 equation that does not use a race coefficient. Blood Venous blood specimen / Unknown Venipuncture / Unknown 07/20/2024 10:40 AM EDT 07/20/2024 10:40 AM EDT us Wilfredo Forte MD LAB BLOOD ORDERABLES Final Re sult [facility] [address] [place] [address] * (ABNORMAL) CBC and Differential (07/20/2024 10:40 AM EDT) WBC Count 20.96(H) 3.70 - 10.30 10*3/uL LAB HEMATOLOGY METHOD 07/20/2024 2:54 PM EDT [facility] RBC Count 4.16(L) 4.60 - 6.10 10*6/uL LAB HEMATOLOGY METHOD 07/20/2024 2:54 PM EDT [facility] HGB 11.5(L) 13.7 - 17.5 g/dL LAB HEMATOLOGY METHOD 07/20/2024 2:54 PM EDT [facility] HCT 37.3(L) 40.0 - 51.0 % LAB HEMATOLOGY METHOD 07/20/2024 2:54 PM EDT [facility] Platelet Count 316 155 - 369 10*3/uL LAB HEMATOLOGY METHOD 07/20/2024 2:54 PM EDT [facility] MCV 90 79 - 98 fL LAB HEMATOLOGY METHOD 07/20/2024 2:54 PM EDT [facility] MCH 27.6 26.0 - 32.0 pg LAB HEMATOLOGY METHOD 07/20/2024 2:54 PM EDT [facility] MCHC 30.8 30.7 - 35.5 g/dL LAB HEMATOLOGY METHOD 07/20/2024 2:54 PM EDT [facility] RDW 15.5(H) 11.5 - 14.5 % LAB HEMATOLOGY METHOD 07/20/2024 2:54 PM EDT [facility] MPV 9.7 8.8 - 12.5 fL LAB HEMATOLOGY METHOD 07/20/2024 2:54 PM EDT [facility] nRBC 0.0 <=0.0 per 100 WBCs LAB HEMATOLOGY METHOD 07/20/2024 2:54 PM EDT [facility] Differential Type Automated LAB HEMATOLOGY METHOD 07/20/2024 2:54 PM EDT [facility] Neutrophils % 49 % LAB HEMATOLOGY METHOD 07/20/2024 2:54 PM EDT [facility] Lymphocytes % 37 % LAB HEMATOLOGY METHOD 07/20/2024 2:54 PM EDT [facility] Monocytes % 7 % LAB HEMATOLOGY METHOD 07/20/2024 2:54 PM EDT [facility] Eosinophils % 3 % LAB HEMATOLOGY METHOD 07/20/2024 2:54 PM EDT [facility] Basophils % 0 % LAB HEMATOLOGY METHOD 07/20/2024 2:54 PM EDT [facility] Immature Granulocytes % 4 % LAB HEMATOLOGY METHOD 07/20/2024 2:54 PM EDT [facility] Neutrophils Absolute 10.36(H) 1.60 - 6.10 10*3/uL LAB HEMATOLOGY METHOD 07/20/2024 2:54 PM EDT [facility] Lymphocytes Absolute 7.66(H) 1.20 - 3.90 10*3/uL LAB HEMATOLOGY METHOD 07/20/2024 2:54 PM EDT [facility] Monocytes Absolute 1.51(H) 0.30 - 0.90 10*3/uL LAB HEMATOLOGY METHOD 07/20/2024 2:54 PM EDT [facility] Eosinophils Absolute 0.61(H) 0.00 - 0.50 10*3/uL LAB HEMATOLOGY METHOD 07/20/2024 2:54 PM EDT [facility] Basophils Absolute 0.07 0.00 - 0.10 10*3/uL LAB HEMATOLOGY METHOD 07/20/2024 2:54 PM EDT [facility] Immature Granulocytes Absolute 0.75(H) 0.00 - 0.06 10*3/uL LAB HEMATOLOGY METHOD 07/20/2024 2:54 PM EDT [facility] Blood Venous blood specimen / Unknown Venipuncture / Unknown 07/20/2024 10:40 AM EDT 07/20/2024 10:40 AM EDT Narrative [facility] - 07/20/2024 2:54 PM EDT Therapeutic decision making should be based on absolute values, rather than percentages. us Wilfredo Forte MD LAB BLOOD ORDERABLES Final Re sult [facility] [address] [place] [address] documented in this encounter Visit Diagnoses Diagnosis Infection of prosthetic joint, subsequent encounter- Primary documented in this encounter Additional Health Concerns Active Problems Noted Date Diagnosed Date Autogenerated Problem 07/17/2024 Autogenerated Problem 06/05/2024 Assessment Noted Time PHQ-9 Depression Total Score: 0 06/16/19 9:48 AM EDT A fall risk assessment has been complete d for the patient 07/20/2024 10:01 AM EDT A Body Mass Index follow-up plan has been documented for the patient 07/20/2024 11:17 AM EDT documented as of this encounter Care Teams Automobile Upholsterer Relationship Specialty Start Date End Date Viridiana Oropeza MD [address] [place] [address] PCP - General 03/13/22 Gerardo Mcbride [address] [place] [address] 08/23/23 documented as of this encounter
--- OUTSIDE RECORDS SUMMARY | 2024-07-21 16:39 | XMS_ITS | Encounter Summary ---
Author [place] [address] Care Team Providers Care Pedicurist Name Role Phone Viridiana Oropeza MD Primary Care Provider [phone] Pankaj Navarro MD Unavailable [phone] Reason for Visit * Reason Comments Abnormal Lab high wbc, referred d ue to possible hip infection after replacement * Auth/Cert/Inpt (Routine) Specialty Diagnoses / Procedures Referred By Contpedro t Referred To Contact Diagnoses ZAC (acute kidney injury) Referral ID Status Reason Start Date Expiration Date Visits Re quested Visits Authorized [id number] 1 1 Encounter Details Date Type Department Care Team (Latest Contact Info) Description 07/21/2024 4:39 PM EDT - 07/26/2024 4:06 PM EDT Hospital Encounter EDG 2B [place] [id number] Cat Jules MD [address] [place] [address] Anil Thompson DO [address] [place] [address] ZAC (acute kidney injury) (Primary Dx); Pancolitis (HCC) Discharge Disposition: Home or Self Care Social History Tobacco Use Types Packs/Day Years Used Date Smoking Tobacco: Never Passive Smoke Exposure: Never Smokeless Tobacco: Never Alcohol Use Standard Drinks/Week Comments No 0 (1 standard drink = 0.6 oz pur e alcohol) [facility] Utilities Answer Date Recorded In the past 12 months has [employer], gas, oil, or water autoGraph threatened to shut off services in your home? No 07/22/2024 Overall Financial Resource Strain (CARDIA) Answe r Date Recorded How hard is it for you to pa y for the very basics like food, housing, medical care, and heating? Not hard at all 07/22/2024 PHQ-2 Answer Date Recorded PHQ-2 Total Score 0 07/22/2024 [place] [employer] [facility] - Occupational Stress [...] things needed for daily living? No [facility] Transportation Answer D ate Recorded [...] 4:08 PM EDT Genesis Dumont RN * [place] Suicide Severity Rating Scale (Q shift for [...] Thompson DO - 07/26/2024 1:18 PM EDT [facility] Hospitalist Discharge Summary Patient Name: Jani Ingram : [...] Your Medications These medications were sent to [facility] [address] [place] [address] [place] [address] Hours: Saturday-Saturday 8:00am - 6:30pm vancomycin 125 mg Cap Condition at Discharge: good Disposition: Home Follow-up: [facility] [place] [address] [place] [address] Viridiaan Oropeza MD [address] [facility] [address] Follow up in 3 day(s) Hospital [...] Means Destination Comment s Home or Self Assisted documented in this encounter Progress Notes * KinmanRoxi CPhT - 07/26/2024 3:50 PM EDT Discharge Medication Delivery Service DMD strain technician has delivered the following medications for Jani Ingram: Rx#[id number]:VANCOMYCIN 125 MG CAPSULE-125 mg EVERY 6 HOURS SCHEDULED Date/Time of Delivery: 07/26/2024 3:50 PM Delivered to: handed to son in Please contact DMD strain technician with any questions. Thanks! 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 Monitor, adjust regimen as needed HTN: -BP stable 128/56 most recent -Not taking meds SUPPLIER QUALITY ENGINEERING MANAGER -Monitor Obesity: -Complicates all aspects of care [...] multiple nonobstructing stones DM, type II: -Hold SUPPLIER QUALITY ENGINEERING MANAGER metformin -A1c 6.4 05/05 -BG stable, at goal 07/25 -SSI. Monitor, adjust regimen as needed HTN: -BP stable 119/63 most recent -Not taking meds SUPPLIER QUALITY ENGINEERING MANAGER -Monitor Obesity: -Complicates all aspects of care [...] Vancomycin x 10 days Had been on retirement Amoxicillin for presmed hip infection earlier in [...] orthopedics and ID service affiliated with in [place] Leukocytosis Likely secondary to C Diff colitis [...] -Renal/bladder u/s ordered DM, type II: -Hold SUPPLIER QUALITY ENGINEERING MANAGER metformin -A1c 6.4 05/05 -BG stable, at goal 07/24 -SSI. Monitor, adjust regimen as needed HTN: -BP stable 142/69 most recent -Not taking meds SUPPLIER QUALITY ENGINEERING MANAGER -Monitor Obesity: -Complicates all aspects of care D/w RN, full charge bookkeeper, CC Dispo: Remains inpatient. VTE Prophylaxis: Qualifying [...] Vancomycin x 10 days Had been on retirement Amoxicillin for presmed hip infection earlier in [...] orthopedics and ID service affiliated with in [place] Leukocytosis Likely secondary to C Diff colitis [...] d/c plan is home with family support, [facility], and outpatient follow up with physicians. [...] or preferences. SW spoke to Dennis with [facility] and notified. [facility]. No other d/c needs identified. SW/CC available should needs arise. * Nenita Hernandez RN - 07/24/2024 6:00 AM EDT Pt VSS, A/O x4, Pt having loose BMs, using urinal, PRN pain meds given 3x w/some relief, TUMS [id number] w/some relief, IV replaced, encouraged turns, [id number] on importance, ambulating w/walker and standby assist. 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 Monitor, adjust regimen as needed HTN: -BP stable 145/67 most recent -Not taking meds SUPPLIER QUALITY ENGINEERING MANAGER -Monitor Obesity: -Complicates all aspects of care D/w RN, full charge bookkeeper, CC Dispo: Remains inpatient. VTE Prophylaxis: Qualifying [...] >30 mL/min, BMI >40 kg/m2. Thanks! Mariah Beasely PharmD * Mariah Beasley PharmD - 07/22/2024 6:39 PM EDT Patient: Jani Ingram , : 1955 07/22/2024 Test: Per [employer] Gram-Positive Nucleic Acid blood culture test, patient is reported to have Staphylococcus spp. with with no mecA, Marilynn, or vanB resistance markers in their blood in 1/2 cultures. Time test reported to pharmacy: 1829 Lab Caller / Pharmacy Financial Operations Analyst: Mariah Nicolas / Rosalind Montero Action Taken: [...] IV atb's as ordered. * Aviva Mcguire, DOUGH MIXER OPERATOR - 07/22/2024 10:52 AM EDT 07/22/24 1051 [...] for dc planning process Does patient need parts interpreter? No Activities of Daily Living Prior [...] Discussed discharge plans with Care Team at [facility] [place] Yes, with nurse in attendance;Yes, with doctor [...] Dr. Viridiana Oropeza. [facility]. Pt states he can afford all his [...] d/c. Per Chart Review, pt active with [facility]. Resumption referral sent. Awaiting response. Pt states [...] here for ZAC. Will initiate vancomycin therapy [id number] mg then intermittent/pulse dosing. Will draw vancomycin [...] Thompson DO - 07/22/2024 10:39 AM EDT [facility] History and Physical Name: Jani Ingram : [...] 03/15/2017 CIRCUMCISION; Surgeon: Jameson Rodriguez MD; Location: [facility] OR; Service: Urology COLONOSCOPY COLONOSCOPY N/A 06/16/2015 COLONOSCOPY ; Surgeon: Pankaj Chavez MD; Location: [facility] ENDOSCOPY; Service: Endoscopy HIP SURGERY Bilateral 1995 nasima hip repacements IR 2 LEVEL BILATERAL MEDIAL BRANCH BLOCK LUM SAC 02/18/2020 IR 2 LEVEL BILATERAL MEDIAL BRANCH BLOCK LUM SAC 02/18/2020 [facility] IMAGING SHOULDER ARTHROSCOPY Right 08/28/2016 RIGHT SHOULDER ARTHROSCOPIC ROTATOR CUFF REPAIR, DECOMPRESSION ACROMIOPLASTY ACROMIOCLAVICULAR JOINT EXCISION; Surgeon: Robbi Alvarez MD; Location: [facility]; Service: Orthopedics SHOULDER SURGERY Medications [...] (Patient not taking: Reported on 07/21/2024) Lancets [facility] Misc Check BS bid lisinopriL (PRINIVIL;ZESTRIL) 2.5 [...] true Transportation Needs: No Transportation Needs (07/22/2024) [facility] IP Transportation In the past 12 months, has lack of reliable transportation kept you from medical appointments, meetings, work or from getting things needed for daily living?: No Physical Activity: Inactive (07/22/2024) Exercise Vital Sign Days of Exercise per Week: 0 days Minutes of Exercise per Session: 0 min Stress: No Stress Concern Present (07/22/2024) [place] [employer] - Occupational Stress Questionnaire Feeling of Stress : Not at all Social Connections: Patient Unable To Answer (05/04/2024) Received from [facility] Social Connection and Isolation Panel [NHANES] Frequency of Communication with Friends and Family: Patient unable to answer Frequency of Social Gatherings with Friends and Family: Patient unable to answer Attends Yarsanism Services: Patient unable to answer Active Member of Clubs or Organizations: Patient unable to answer Attends Club or Organization Meetings: Patient unable to answer Marital Status: Patient unable to answer Intimate Partner Violence: Not At Risk (05/04/2024) Received from [facility] Humiliation, Afraid, Rape, and Kick questionnaire Fear of Current or Ex-Partner: No Emotionally Abused: No Physically Abused: No Sexually Abused: No Housing Stability: Low Risk (05/04/2024) Received from [facility] Housing Stability Vital Sign Unable to [...] EK EKG [address] 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 Monitor, adjust regimen as needed HTN: -BP elevated 146/67 most recent -Not taking meds SUPPLIER QUALITY ENGINEERING MANAGER -Monitor Obesity: -Complicates all aspects of care D/w RN, full charge bookkeeper, CC Code Status: Full Anil Thompson DO [...] was seen in the emergency room at [facility] on 06/27, the amoxicillin was discontinued. He [...] infection, treated by infectious disease service at [facility] in [place]. History of circumcision, colonoscopy, shoulder arthroscopy, shoulder [...] the vancomycin. The infectious disease service at [facility] had suggested amoxicillin for 3 months; [...] did discuss the case with the hospitalist farm labor contractor, Dr. Thompson. I will follow the patient along with you and I appreciate the opportunity to see your patient. Chapo Calvin M.D. By: Brandon Job ID: [id number] Doc ID: [id number] documented in this encounter ED Notes * [...] 06/03/24 Not Taking Viridiana Oropeza MD Lancets [facility] Misc Check BS bid 04/02/24 Viridiana Oropeza [...] 03/15/2017 CIRCUMCISION; Surgeon: Jameson Rodriguez MD; Location: [facility]; Service: Urology COLONOSCOPY COLONOSCOPY N/A 06/16/2015 COLONOSCOPY ; Surgeon: Pankaj Chavez MD; Location: [facility] ENDOSCOPY; Service: Endoscopy HIP SURGERY Bilateral 1995 nasima hip repacements IR 2 LEVEL BILATERAL MEDIAL BRANCH BLOCK LUM SAC 02/18/2020 IR 2 LEVEL BILATERAL MEDIAL BRANCH BLOCK LUM SAC 02/18/2020 [facility] IMAGING SHOULDER ARTHROSCOPY Right 08/28/2016 RIGHT SHOULDER ARTHROSCOPIC ROTATOR CUFF REPAIR, DECOMPRESSION ACROMIOPLASTY ACROMIOCLAVICULAR JOINT EXCISION; Surgeon: Robbi Alvarez MD; Location: [facility]; Service: Orthopedics SHOULDER SURGERY Review [...] difficulty ambulating in April. He went to [facility] for evaluation. They performed a CT scan that demonstrated a 14w19a74 cm rim enhancing fluid collection involving the hip prosthesis. He was transferred to [facility] to the OR on 05/02/24 [...] without final read as there is no [facility] radiologist [...] admission here. He is agreeable. Discussed with crisis intervention specialist HUMPHREY (DEREK Isidro), who accepted patient to Dr. Thompson's service for further infection management and culture maturation. Patient also remains pending CT lower extremity final read. Condition at Discharge/Transfer from Department: Stable This chart was completed using voice recognition technology and may contain unintended errors Cat Jules MD 07/21/24 2200 documented in this encounter Miscellaneous Notes * [...] -Renal/bladder u/s ordered DM, type II: -Hold SUPPLIER QUALITY ENGINEERING MANAGER metformin -A1c 6.4 05/05 -BG stable, at goal -SSI. Monitor, adjust regimen as needed HTN: -BP stable 145/67 most recent -Not taking meds SUPPLIER QUALITY ENGINEERING MANAGER -Monitor Obesity: -Complicates all aspects of care D/w RN, full charge bookkeeper, CC Dispo: Remains inpatient. VTE Prophylaxis: Qualifying [...] the vancomycin. The infectious disease service at [facility] had suggested amoxicillin for 3 months; [...] did discuss the case with the hospitalist farm labor contractor, Dr. Thompson. I will follow the patient along with you and I appreciate the opportunity to see your patient . * Critical Result Value - Fabian Espinoza RN - 07/22/2024 4:21 PM EDT Jani Ingram [id number], 1955 07/22/2024 Test Name/Result: Blood Cultures/Gram + Cocci Time: 162 Caller/Financial Operations Analyst: Sharee Mariee/Fabian Marcial RN R/V Action Taken: Communicated with provider via Secure Chat Time: 1624 Notified Physician/Physician Designee: Dr. Thompson * Utilization Review Notes - Korina Etienne RN - 07/22/2024 1:57 PM EDT FAST FOOD SHIFT SUPERVISOR 07/22/2024 Pt was admitted as observation 07/21* [...] Oropeza. Pt states his pharmacy is the [facility] in [facility]. Pt states he can afford all his [...] d/c. Per Chart Review, [facility] Resumption referral sent. Awaiting response. Pt states [...] without final read as there is no [facility] radiologist [...] Description 09/16/2024 12:15 PM EDT Office Visit [facility] [address] [place] [address] Viridiana Oropeza MD [address] [place] [address] Pending Results Name Type Priority Associated Diagnoses [...] AM EDT GLUCOSE METER POC Routine 07/24/2024 9:2 3 PM EDT ECG AND WAVEFORMS - [...] GLUCOSE METER POC (07/26/2024 11:20 AM EDT) [facility] Glucose Meter POC 146(H) 70 - 100 mg/dL 07/26/2024 11:21 AM EDT [facility] Sample Type Capillary 07/26/2024 11:21 AM EDT [facility] Patient Status Non-Critical Patient 07/26/2024 11:21 AM EDT [facility] Blood BLOOD SPECIMEN / Unknown 07/26/2024 11:20 AM EDT 07/26/2024 11:21 AM EDT us Anil Thompson DO POINT OF CARE TEST ORDERABLE S Final Result Performing Organization Address City/[facility]/ZIP Co de Phone Number [facility] [address] [place] [address] * GLUCOSE METER POC (07/26/2024 8:47 AM EDT) Glucose Meter POC 87 70 - 100 mg/dL 07/26/2024 8:48 AM EDT [facility] Sample Type Capillary 07/26/2024 8:48 AM EDT [facility] Patient Status Non-Critical Patient 07/26/2024 8:48 AM EDT [facility] Blood BLOOD SPECIMEN / Unknown 07/26/2024 8:47 AM EDT 07/26/2024 8:48 AM EDT us Anil Thompson DO POINT OF CARE TEST ORDERABLE S Final Result Performing Organization Address [facility] Co de Phone Number [facility] [address] [place] [address] * ECG AND WAVEFORMS - TELEMETRY (07/26/2024 7:58 AM EDT) ECG INTERPRET Sinus with IVCD [facility] 07/26/2024 7:58 AM EDT Narrative [facility] - 07/26/2024 8:03 AM EDT EH - ROUTINE IL 0.20 QRS 0.11 RR 0.88 QT 0.37 QTc 0.39 See Clinical Report link for waveform capture us Unknown Provider POINT OF CARE CARDIOLOGY Final Result [facility] [address] [place] [id number] * (ABNORMAL) CBC WITH DIFF (07/26/2024 6:09 [...] 7:44 AM EDT [facility] [place] Percent 6.1 % 07/26/2024 7:44 AM EDT [facility] Eos Percent 4.2 % 07/26/2024 7:44 AM EDT [facility] Baso Percent 0.4 % 07/26/2024 7:44 AM EDT [facility] Neut # 4.9 1.6 - 6.1 x10(3)/[facility] 07/26/2024 7:44 AM EDT [facility] Comment:Neutrophils equals s egs plus bands IMMGRAN# 0.1 0.0 - 0.1 x10(3)/[facility] 07/26/2024 7:44 AM EDT [facility] Comment:Automated count of m etamyelocytes, myelocytes and promyelocytes. An absolute IG <0.1 is reported as 0.0. Lymph # 4.9(H) 1.2 - 3.9 x10(3)/[facility] 07/26/2024 7:44 AM EDT [facility] [place] # 0.7 0.3 - 0.9 x10(3)/[facility] 07/26/2024 7:44 AM EDT [facility] Eos# 0.5 0.0 - 0.5 x10(3)/[facility] 07/26/2024 7:44 AM EDT [facility] Baso # 0.0 0.0 - 0.1 x10(3)/[facility] 07/26/2024 7:44 AM EDT [facility] Blood VENOUS BLOOD / Unknown Venipuncture / Unknown 07/26/2024 6:09 AM EDT 07/26/2024 7:29 AM EDT us Anil Thompson DO HEMATOLOGY ORDERABLES Final Result [facility] [address] [facility] , [address] [place] [id number] * (ABNORMAL) GLUCOSE METER POC (07/25/2024 9:53 PM EDT) [facility] Glucose Meter POC 137(H) 70 - 100 mg/dL 07/25/2024 9:55 PM EDT [facility] Sample Type Capillary 07/25/2024 9:55 PM EDT [facility] Patient Status Non-Critical Patient 07/25/2024 9:55 PM EDT [facility] Blood BLOOD SPECIMEN / Unknown 07/25/2024 9:53 PM EDT 07/25/2024 9:55 PM EDT us Anil Thompson DO POINT OF CARE TEST ORDERABLE S Final Result Performing Organization Address City/[facility]/ZIP Co de Phone Number [facility] [address] [place] [address] * GLUCOSE METER POC (07/25/2024 5:22 PM EDT) Pathologist [facility] Glucose Meter POC 100 70 - 100 mg/dL 07/25/2024 5:23 PM EDT [facility] Sample Type Capillary 07/25/2024 5:23 PM EDT [facility] Patient Status Non-Critical Patient 07/25/2024 5:23 PM EDT [facility] Blood BLOOD SPECIMEN / Unknown 07/25/2024 5:22 PM EDT 07/25/2024 5:23 PM EDT us Anil Thompson DO POINT OF CARE TEST ORDERABLE S Final Result Performing Organization Address City/[facility]/ZIP Co [place] [address] * EC ECHOCARDIOGRAM LIMITED (07/25/2024 2:20 PM EDT) Pathologist [facility] LV DIASTOLIC PLAX 5.2 cm PYRAMIS Ejection [...] - 100 mg/dL 07/25/2024 11:36 AM EDT [facility] Sample Type Capillary 07/25/2024 11:36 AM EDT [facility] Patient Status Non-Critical Patient 07/25/2024 11:36 AM EDT [facility] Blood BLOOD SPECIMEN / Unknown 07/25/2024 11:34 AM EDT 07/25/2024 11:36 AM EDT us Anil Thompson DO POINT OF CARE TEST ORDERABLE S Final Result [facility] [address] [place], [place] [id number] * ECG AND WAVEFORMS - TELEMETRY (07/25/2024 8:04 AM EDT) ECG INTERPRET NSR [facility] 07/25/2024 8:04 AM EDT Narrative [facility] - 07/25/2024 8:06 AM EDT EH - ROUTINE IL 0.20 QRS 0.11 RR 0.88 QT 0.37 QTc 0.39 See Clinical Report link for waveform capture us Unknown Provider POINT OF CARE CARDIOLOGY Final Result Performing Organization Address City/[facility]/ZIP Co de Phone Number [facility] [address] [place] [id number] * (ABNORMAL) GLUCOSE METER POC (07/25/2024 7:38 AM EDT) Glucose Meter POC 107(H) 70 - 100 mg/dL 07/25/2024 7:40 AM EDT [facility] Sample Type Capillary 07/25/2024 7:40 AM EDT [facility] Patient Status Non-Critical Patient 07/25/2024 7:40 AM EDT [facility] Blood BLOOD SPECIMEN / Unknown 07/25/2024 7:38 AM EDT 07/25/2024 7:40 AM EDT us Anil Thompson DO POINT OF CARE TEST ORDERABLE S Final Result Performing Organization Address [facility]/ZIP Co de Phone Number [facility] [address] [place] [phone] * (ABNORMAL) CBC WITH DIFF (07/25/2024 6:23 [...] 07/25/2024 7:56 AM EDT [facility] RDW 15.8(H) <=14.9 % 07/25/2024 7:56 AM EDT [facility] Platelet 270 155 - 369 x10(3)/mcL 07/25/2024 7:56 AM EDT [facility] MPV 9.6 8.8 - 12.5 fL 07/25/2024 7:56 AM EDT [facility] Neut Percent 45.2 % 07/25/2024 7:56 AM EDT [facility] Comment:Neutrophils equals s egs plus bands Imm Gran% 1.1 % 07/25/2024 7:56 AM EDT [facility] Comment:Automated count of m etamyelocytes, myelocytes and promyelocytes. IG >1% represents a left shift and provides an early indication of an infection or inflammatory process. Lymph Percent 42.6 % 07/25/2024 7:56 AM EDT [facility] [place] Percent 5.8 % 07/25/2024 7:56 AM EDT [facility] Eos Percent 4.9 % 07/25/2024 7:56 AM EDT [facility] Baso Percent 0.4 % 07/25/2024 7:56 AM EDT [facility] Neut # 5.5 1.6 - 6.1 x10(3)/mcL 07/25/2024 7:56 AM EDT [facility] Comment:Neutrophils equals s egs plus bands IMMGRAN# 0.1 0.0 - 0.1 x10(3)/mcL 07/25/2024 7:56 AM EDT [facility] Comment:Automated count of m etamyelocytes, myelocytes and promyelocytes. An absolute IG <0.1 is reported as 0.0. Lymph # 5.2(H) 1.2 - 3.9 x10(3)/mcL 07/25/2024 7:56 AM EDT [facility] [place] # 0.7 0.3 - 0.9 x10(3)/mcL 07/25/2024 7:56 AM EDT [facility] Eos# 0.6(H) 0.0 - 0.5 x10(3)/mcL 07/25/2024 7:56 AM EDT [facility] Baso # 0.1 0.0 - 0.1 x10(3)/mcL 07/25/2024 7:56 AM EDT [facility] Blood VENOUS BLOOD / Unknown Venipuncture / Unknown 07/25/2024 6:23 AM EDT 07/25/2024 7:43 AM EDT us Anil Thompson DO HEMATOLOGY ORDERABLES Final Result [facility] [address] [facility] [address] [place] [id number] * (ABNORMAL) BASIC METABOLIC PANEL (07/25/2024 6:23 AM EDT) Sodium 141 136 - 145 mmol/L 07/25/2024 8:18 AM EDT [facility] Potassium 4.3 3.5 - 5.0 mmol/L 07/25/2024 8:18 AM EDT [facility] Chloride 108(H) 98 - 107 mmol/L 07/25/2024 8:18 AM EDT [facility] Total CO2 23 22 - 29 mmol/L [...] recommended by the National Kidney Foundation - [place] [employer] Nephrology Task Force. Blood VENOUS BLOOD / Unknown Venipuncture / Unknown 07/25/2024 6:23 AM EDT 07/25/2024 7:43 AM EDT Anil Thompson DO CHEMISTRY ORDERABLES Final R esult Performing Organization Address City/[facility] Co de Phone Number [facility] [address] [facility], [place] [address] * (ABNORMAL) GLUCOSE METER POC (07/24/2024 9:23 PM EDT) Glucose Meter POC 149(H) 70 - 100 mg/dL 07/24/2024 9:25 PM EDT [facility] Sample Type Capillary 07/24/2024 9:25 PM EDT [facility] Patient Status Non-Critical Patient 07/24/2024 9:25 PM EDT [facility] Blood BLOOD SPECIMEN / Unknown 07/24/2024 9:23 PM EDT 07/24/2024 9:25 PM EDT Anil Thompson DO POINT OF CARE TEST ORDERABLE S Final Result Performing Organization Address [facility] de Phone Number [address] [address] * ECG AND WAVEFORMS - TELEMETRY (07/24/2024 7:43 PM EDT) ECG INTERPRET Sinus Rhythm w/ First Degree AVB [facility] 07/24/2024 7:43 PM EDT Narrative [facility] - 07/24/2024 9:03 PM EDT 1ST DEGREE AVB [place] 0.23 QRS 0.10 RR 0.72 QT 0.33 QTc 0.39 See Clinical Report link for waveform capture Unknown Provider POINT OF CARE CARDIOLOGY Final Result [facility] [address] [place] [address] * (ABNORMAL) GLUCOSE METER POC (07/24/2024 5:08 PM EDT) Glucose Meter POC 107(H) 70 - 100 mg/dL 07/24/2024 5:10 PM EDT [facility] Sample Type Capillary 07/24/2024 5:10 PM EDT [facility] Patient Status Non-Critical Patient 07/24/2024 5:10 PM EDT [facility] Blood BLOOD SPECIMEN / Unknown 07/24/2024 5:08 PM EDT 07/24/2024 5:10 PM EDT us Anil Thompson DO POINT OF CARE TEST ORDERABLE S Final Result Performing Organization Address [facility]/ZIP Co de Phone Number [facility] [address] [place] [address] * (ABNORMAL) GLUCOSE METER POC (07/24/2024 12:58 PM EDT) Glucose Meter POC 125(H) 70 - 100 mg/dL 07/24/2024 12:59 PM EDT [facility] Sample Type Capillary 07/24/2024 12:59 PM EDT [facility] Patient Status Non-Critical Patient 07/24/2024 12:59 PM EDT [facility] Blood BLOOD SPECIMEN / Unknown 07/24/2024 12:58 PM EDT 07/24/2024 12:59 PM EDT us Anil Thompson DO POINT OF CARE TEST ORDERABLE S Final Result Performing Organization Address City/[facility]/ZIP Co de Phone Number [facility] [address] [place] [address] * (ABNORMAL) GLUCOSE METER POC (07/24/2024 8:07 AM EDT) Glucose Meter POC 107(H) 70 - 100 mg/dL 07/24/2024 8:08 AM EDT [facility] Sample Type Capillary 07/24/2024 8:08 AM EDT [facility] Patient Status Non-Critical Patient 07/24/2024 8:08 AM EDT [facility] Blood BLOOD SPECIMEN / Unknown 07/24/2024 8:07 AM EDT 07/24/2024 8:08 AM EDT Anil Thompson DO POINT OF CARE TEST ORDERABLE S Final Result [facility] [address] [place] [phone] * (ABNORMAL) CBC WITH DIFF (07/24/2024 6:31 [...] 07/24/2024 7:29 AM EDT [facility] Neut Percent 47.0 % 07/24/2024 7:29 AM EDT [facility] Comment:Neutrophils equals s egs plus bands Imm Gran% 1.3 % 07/24/2024 7:29 AM EDT [facility] Comment:Automated count of m etamyelocytes, myelocytes and promyelocytes. IG >1% represents a left shift and provides an early indication of an infection or inflammatory process. Lymph Percent 40.1 % 07/24/2024 7:29 AM EDT [facility] [place] Percent 5.3 % 07/24/2024 7:29 AM EDT [facility] Eos Percent 6.0 % 07/24/2024 7:29 AM EDT [facility] Baso Percent 0.3 % 07/24/2024 7:29 AM EDT [facility] Neut # 5.9 1.6 - 6.1 x10(3)/[facility] 07/24/2024 7:29 AM EDT [facility] Comment:Neutrophils equals s egs plus bands IMMGRAN# 0.2(H) 0.0 - 0.1 x10(3)/mcL 07/24/2024 7:29 AM EDT [facility] Comment:Automated count of m etamyelocytes, myelocytes and promyelocytes. An absolute IG <0.1 is reported as 0.0. Lymph # 5.0(H) 1.2 - 3.9 x10(3)/mcL 07/24/2024 7:29 AM EDT [facility] [place] # 0.7 0.3 - 0.9 x10(3)/[facility] 07/24/2024 7:29 AM EDT [facility] Eos# 0.8(H) 0.0 - 0.5 x10(3)/[facility] 07/24/2024 7:29 AM EDT [facility] Baso # 0.0 0.0 - 0.1 x10(3)/mcL 07/24/2024 7:29 AM EDT [facility] Blood VENOUS BLOOD / Unknown Venipuncture / Unknown 07/24/2024 6:31 AM EDT 07/24/2024 7:16 AM EDT us Anil Thompson DO HEMATOLOGY ORDERABLES Final Result [facility] [address] [facility] , [place] [address] * (ABNORMAL) BASIC METABOLIC PANEL (07/24/2024 6:31 AM EDT) Sodium 140 136 - 145 mmol/L 07/24/2024 7:56 AM EDT [facility] Potassium 4.0 3.5 - 5.0 mmol/L 07/24/2024 7:56 AM EDT [facility] Chloride 110(H) 98 - 107 mmol/L 07/24/2024 7:56 AM EDT [facility] Total CO2 19(L) 22 - 29 mmol/L 07/24/2024 7:56 AM EDT [facility] Anion Gap 11 7 - 16 mmol/L 07/24/2024 7:56 AM EDT [facility] Calcium 8.9 8.8 - 10.4 mg/dL 07/24/2024 7:56 AM EDT [facility] Glucose Lvl 95 70 - 99 mg/dL 07/24/2024 7:56 AM EDT [facility] BUN 15 8 - 23 mg/dL 07/24/2024 7:56 AM EDT [facility] Creatinine 1.44(H) 0.67 - 1.30 mg/dL 07/24/2024 7:56 AM EDT [facility] eGFR (CKD-EPIcr 2020) 53(L) >=60 mL/min/1.7 3 m2 07/24/2024 7:56 AM EDT [facility] Comment:Estimated GFR was ca lculated using the CKD-EPIcr (2020) equation refit without race. The equation is recommended by the National Kidney Foundation - [place] [employer] of Nephrology Task Force. Blood VENOUS BLOOD / Unknown Venipuncture / Unknown 07/24/2024 6:31 AM EDT 07/24/2024 7:16 AM EDT Anil Thompson DO CHEMISTRY ORDERABLES Final R esult Performing Organization Address City/[facility]/ZIP Co de Phone Number [facility] [employer] [address] [facility], [address] [place] [phone] * GLUCOSE METER POC (07/24/2024 12:22 AM EDT) Glucose Meter POC 91 70 - 100 mg/dL 07/24/2024 12:24 AM EDT [facility] Sample Type Capillary 07/24/2024 12:24 AM EDT [facility] Patient Status Non-Critical Patient 07/24/2024 12:24 AM EDT [facility] Blood BLOOD SPECIMEN / Unknown 07/24/2024 12:22 AM EDT 07/24/2024 12:24 AM EDT Anil Thompson DO POINT OF CARE TEST ORDERABLE S Final Result Performing Organization Address [facility] Co de Phone Number [facility] [address] [place] [address] * ECG AND WAVEFORMS - TELEMETRY (07/23/2024 7:05 PM EDT) [facility] ECG INTERPRET NSR [facility] 07/23/2024 7:05 PM EDT Narrative [facility] - 07/23/2024 8:21 PM EDT ROUTINE/1stAVB/af [place] 0.22 QRS 0.10 RR 0.77 QT 0.45 QTc 0.51 See Clinical Report link for waveform capture us Unknown Provider POINT OF CARE CARDIOLOGY Final Result Performing Organization Address City/[facility]/ZIP Co de Phone Number [facility] [address] [place] [address] * (ABNORMAL) GLUCOSE METER POC (07/23/2024 6:50 PM EDT) Glucose Meter POC 154(H) 70 - 100 mg/dL 07/23/2024 6:52 PM EDT [facility] Sample Type Capillary 07/23/2024 6:52 PM EDT [facility] Patient Status Non-Critical Patient 07/23/2024 6:52 PM EDT [facility] Blood BLOOD SPECIMEN / Unknown 07/23/2024 6:50 PM EDT 07/23/2024 6:52 PM EDT us Anil Thompson DO POINT OF CARE TEST ORDERABLE S Final Result Performing Organization Address [facility]/ZIP Co de Phone Number [facility] [address] [place] [address] * GLUCOSE METER POC (07/23/2024 2:30 PM EDT) Glucose Meter POC 99 70 - 100 mg/dL 07/23/2024 2:32 PM EDT [facility] Sample Type Capillary 07/23/2024 2:32 PM EDT [facility] Patient Status Non-Critical Patient 07/23/2024 2:32 PM EDT [facility] Blood BLOOD SPECIMEN / Unknown 07/23/2024 2:30 PM EDT 07/23/2024 2:32 PM EDT us Anil Thompson POINT OF CARE TEST ORDERABLE S Final Result Performing Organization Address [facility] de Phone Number [facility] [address] [place] [address] * (ABNORMAL) CBC WITH DIFF (07/23/2024 8:10 [...] 07/23/2024 9:28 AM EDT [facility] MCV 93.1 80.0 - 100.0 fL 07/23/2024 9:28 AM EDT [facility] MCH 27.4 26.0 - 34.0 pg 07/23/2024 9:28 AM EDT [facility] MCHC 29.5(L) 30.7 - 35.5 g/dL 07/23/2024 9:28 AM EDT [facility] RDW 15.6(H) <=14.9 % 07/23/2024 9:28 AM EDT [facility] Platelet 256 155 - 369 x10(3)/mcL 07/23/2024 9:28 AM EDT [facility] MPV 10.0 8.8 - 12.5 fL 07/23/2024 9:28 AM EDT [facility] Neut Percent 57.5 % 07/23/2024 9:28 AM EDT [facility] Comment:Neutrophils equals s egs plus bands Imm Gran% 1.2 % 07/23/2024 9:28 AM EDT [facility] Comment:Automated count of m etamyelocytes, myelocytes and promyelocytes. IG >1% represents a left shift and provides an early indication of an infection or inflammatory process. Lymph Percent 31.8 % 07/23/2024 9:28 AM EDT [facility] [place] Percent 4.9 % 07/23/2024 9:28 AM EDT [facility] Eos Percent 4.4 % 07/23/2024 9:28 AM EDT [facility] Baso Percent 0.2 % 07/23/2024 9:28 AM EDT [facility] Neut # 9.6(H) 1.6 - 6.1 x10(3)/mcL 07/23/2024 9:28 AM EDT [facility] Comment:Neutrophils equals s egs plus bands IMMGRAN# 0.2(H) 0.0 - 0.1 x10(3)/mcL 07/23/2024 9:28 AM EDT [facility] Comment:Automated count of m etamyelocytes, myelocytes and promyelocytes. An absolute IG <0.1 is reported as 0.0. Lymph # 5.3(H) 1.2 - 3.9 x10(3)/mcL 07/23/2024 9:28 AM EDT [facility] [place] # 0.8 0.3 - 0.9 x10(3)/mcL 07/23/2024 9:28 AM EDT [facility] Eos# 0.7(H) 0.0 - 0.5 x10(3)/mcL 07/23/2024 9:28 AM EDT [facility] Baso # 0.0 0.0 - 0.1 x10(3)/mcL 07/23/2024 9:28 AM EDT [facility] Blood VENOUS BLOOD / Unknown Venipuncture / Unknown 07/23/2024 8:10 AM EDT 07/23/2024 8:21 AM EDT Chapo Calvin MD HEMATOLOGY ORDERABLES Final Result [facility] [address] [facility] , [place] [address] * (ABNORMAL) COMPREHENSIVE METABOLIC PANEL (07/23/2024 8:10 AM EDT) Sodium 138 136 - 145 mmol/L 07/23/2024 9:14 AM EDT [facility] Potassium 4.3 3.5 - 5.0 mmol/L 07/23/2024 9:14 AM EDT [facility] Chloride 109(H) 98 - 107 mmol/L 07/23/2024 9:14 AM EDT [facility] Total CO2 20(L) 22 - 29 mmol/L 07/23/2024 9:14 AM EDT [facility] Anion Gap 9 7 - 16 mmol/L 07/23/2024 9:14 AM EDT [facility] Calcium 8.8 8.8 - 10.4 mg/dL 07/23/2024 9:14 AM EDT [facility] Glucose Lvl 99 70 - 99 mg/dL 07/23/2024 9:14 AM EDT [facility] BUN 18 8 - 23 mg/dL 07/23/2024 9:14 AM EDT [facility] Creatinine 1.67(H) 0.67 - 1.30 mg/dL 07/23/2024 9:14 AM EDT [facility] Albumin 3.1(L) 3.2 - 4.6 gm/dL 07/23/2024 9:14 AM EDT [facility] Total Protein 5.7(L) 6.4 - 8.3 gm/dL 07/23/2024 9:14 AM EDT [facility] Bili Total 0.2 0.2 - 1.4 mg/dL 07/23/2024 9:14 AM EDT [facility] ALT 6 <=41 U/L 07/23/2024 9:14 AM EDT [facility] AST 10 <=40 U/L 07/23/2024 9:14 AM EDT [facility] Alk Phos 82 40 - 129 U/L 07/23/2024 9:14 AM EDT [facility] eGFR (CKD-EPIcr 2020) 45(L) >=60 mL/min/1.7 3 m2 07/23/2024 9:14 AM EDT [facility] Comment:Estimated GFR was ca lculated using the CKD-EPIcr (2020) equation refit without race. The equation is recommended by the National Kidney Foundation - [place] [employer] of Nephrology Task Force. Blood VENOUS BLOOD / Unknown Venipuncture / Unknown 07/23/2024 8:10 AM EDT 07/23/2024 8:21 AM EDT us Chapo Calvin MD CHEMISTRY ORDERABLES Final R esult [facility] [address] [facility] , [place] [address] * BLOOD CULTURE (NO STAIN) (07/23/2024 8:10 AM EDT) Culture Result No Growth at 120 hours. BLOOD CULTURE (NO STAIN) 07/28/2024 9:00 AM EDT [facility] Blood VENOUS BLOOD / Unknown Venipuncture / Unknown 07/23/2024 8:10 AM EDT 07/23/2024 8:20 AM EDT Chapo Calvin MD MICROBIOLOGY - GENERAL ORDER ARJUN Final Result Performing Organization Address [facility] Co de Phone Number [facility] [employer] [address] , [place] [address] * BLOOD CULTURE (NO STAIN) (07/23/2024 8:10 AM EDT) Culture Result No Growth at 120 hours. BLOOD CULTURE (NO STAIN) 07/28/2024 9:00 AM EDT [facility] [employer] [facility] Blood VENOUS BLOOD / Unknown Venipuncture / Unknown 07/23/2024 8:10 AM EDT 07/23/2024 8:20 AM EDT us Chapo Calvin MD MICROBIOLOGY - GENERAL ORDER ARJUN Final Result Performing Organization Address [facility] de Phone Number [facility] [employer] , [place] [address] * (ABNORMAL) C-REACTIVE PROTEIN (07/23/2024 8:10 AM EDT) Pathologist [facility] CRP 94.55(H) <=5.00 mg/L 07/23/2024 12:34 PM EDT [employer] [facility] Blood VENOUS BLOOD / Unknown Venipuncture / Unknown 07/23/2024 8:10 AM EDT 07/23/2024 8:21 AM EDT Chapo Calvin MD CHEMISTRY ORDERABLES Final R esult Performing Organization Address City/[facility] Co de Phone Number [facility] [employer] [facility] [address] [facility] , [place] [address] * (ABNORMAL) SEDIMENTATION RATE AUTOMATED (07/23/2024 8:10 AM EDT) Pathologist [facility] Sed Rate 39(H) 0 - 20 mm/hr 07/23/2024 9:28 AM EDT [facility] [employer] [facility] Blood VENOUS BLOOD / Unknown Venipuncture / Unknown 07/23/2024 8:10 AM EDT 07/23/2024 8:21 AM EDT Chapo Calvin MD HEMATOLOGY ORDERABLES Final Result Performing Organization Address [facility]/ZIP Co de Phone Number [facility] [employer] [address] , [address] [place] [phone] * (ABNORMAL) CREATINE KINASE (07/23/2024 8:10 AM EDT) [facility] CK 13(L) 39 - 308 U/L 07/23/2024 12:34 PM EDT [facility] [employer] [facility] Blood VENOUS BLOOD / Unknown Venipuncture / Unknown 07/23/2024 8:10 AM EDT 07/23/2024 8:21 AM EDT Result [facility] Chapo Calvin MD CHEMISTRY ORDERABLES Final R esult Performing Organization Address [facility] de Phone Number [facility] [employer] , [address] [place] [phone] * ECG AND WAVEFORMS - TELEMETRY (07/23/2024 7:30 AM EDT) [facility] ECG INTERPRET NSR [facility] 07/23/2024 7:30 AM EDT Narrative [facility] - 07/23/2024 7:51 AM EDT [place] ROUTINE/1ST DEG [place] 0.22 QRS 0.09 RR 0.71 QT 0.35 See Clinical Report link for waveform capture Unknown Provider POINT OF CARE CARDIOLOGY Final Result Performing Organization Address City/[facility] Co de Phone Number [facility] [address] [place] [address] * (ABNORMAL) GLUCOSE METER POC (07/23/2024 6:32 AM EDT) Glucose Meter POC 102(H) 70 - 100 mg/dL 07/23/2024 6:33 AM EDT [facility] Sample Type Capillary 07/23/2024 6:33 AM EDT [facility] Patient Status Non-Critical Patient 07/23/2024 6:33 AM EDT [facility] Blood BLOOD SPECIMEN / Unknown 07/23/2024 6:32 AM EDT 07/23/2024 6:33 AM EDT Anli Thompson DO POINT OF CARE TEST ORDERABLE S [place] [address] * GLUCOSE METER POC (07/23/2024 12:08 AM EDT) Glucose Meter POC 94 70 - 100 mg/dL 07/23/2024 12:12 AM EDT [facility] Sample Type Capillary 07/23/2024 12:12 AM EDT [facility] Patient Status Non-Critical Patient 07/23/2024 12:12 AM EDT [facility] Blood BLOOD SPECIMEN / Unknown 07/23/2024 12:08 AM EDT 07/23/2024 12:12 AM EDT us Anil Thompson DO POINT OF CARE TEST ORDERABLE S Final Result [address] [address] * ECG AND WAVEFORMS - TELEMETRY (07/22/2024 7:05 PM EDT) ECG INTERPRET NSR [facility] 07/22/2024 7:05 PM EDT Narrative [facility] - 07/22/2024 8:02 PM EDT ROUTINE/af [place] 0.20 QRS 0.10 RR 0.72 QT 0.43 QTc 0.51 See Clinical Report link for waveform capture us Unknown Provider POINT OF CARE CARDIOLOGY Final Result Performing Organization Address [facility]/ZIP Co de Phone Number [facility] [address] [place] [address] * (ABNORMAL) GLUCOSE METER POC (07/22/2024 5:53 PM EDT) Glucose Meter POC 105(H) 70 - 100 mg/dL 07/22/2024 5:54 PM EDT [facility] Sample Type Capillary 07/22/2024 5:54 PM EDT [facility] Patient Status Non-Critical Patient 07/22/2024 5:54 PM EDT [facility] Blood BLOOD SPECIMEN / Unknown 07/22/2024 5:53 PM EDT 07/22/2024 5:54 PM EDT us Anil Thompson DO POINT OF CARE TEST ORDERABLE S Final Result Performing Organization Address [facility] Co de Phone Number [facility] [address] [place] [address] * (ABNORMAL) GLUCOSE METER POC (07/22/2024 2:21 PM EDT) Glucose Meter POC 137(H) 70 - 100 mg/dL 07/22/2024 2:22 PM EDT [facility] Sample Type Capillary 07/22/2024 2:22 PM EDT [facility] Patient Status Non-Critical Patient 07/22/2024 2:22 PM EDT [facility] Blood BLOOD SPECIMEN / Unknown 07/22/2024 2:21 PM EDT 07/22/2024 2:22 PM EDT us Anil Thompson DO POINT OF CARE TEST ORDERABLE S Final Result Performing Organization Address [facility]/ZIP Co de Phone Number [facility] [address] [place], [place] [id number] * (ABNORMAL) C DIFF INTERPRETATION (07/22/2024 12:04 PM EDT) C Diff Toxin DNA Positive(A) Negative 07/22/2024 1:41 PM EDT [facility] NAP1 Presumptive Neg Presumptive Neg 07/22/2024 1:41 PM EDT [facility] GDH Antigen Positive(A) Negative 07/22/2024 1:41 PM EDT [facility] C diff toxin A/B Positive(A) Negative 07/22/2024 1:41 PM EDT [facility] Stool RECTUM STRUCTURE / Unknown 07/22/2024 12:04 PM EDT 07/22/2024 12:11 PM EDT Narrative [facility] - 07/22/2024 1:41 PM EDT Toxin producing C diff target DNA sequences detected. Toxins A/B positive. CDI likely. Consider initiation of severity-based CDI therapy according to CDI management guidance. Anil Thompson MICROBIOLOGY - GENERAL ORDER ARJUN Final Result Performing Organization Address City/[facility] Co de Phone Number [address] , [place] [address] * C DIFF GDH AG AND TOXIN A+B (07/22/2024 12:04 PM EDT) Stool RECTUM STRUCTURE / Unknown 07/22/2024 12:04 PM EDT 07/22/2024 12:11 PM EDT Anil Thompson DO MICROBIOLOGY GENERAL ORDER ARJUN Final Result Performing Organization Address [facility] Co de Phone Number [address] , [place] [address] * OVA AND PARASITE BASIC (07/22/2024 12:04 PM EDT) [facility] Giardia Lamblia Antigen Not Detected Not detected 07/22/2024 6:39 PM EDT [facility] Cryptosporidium Exam Not Detected Not Detected 07/22/2024 6:39 PM EDT [facility] Stool RECTUM STRUCTURE / Unknown 07/22/2024 12:04 PM EDT 07/22/2024 12:11 PM EDT Anil Thompson DO MICROBIOLOGY - GENERAL ORDER ARJUN Final Result Performing Organization Address City/[facility] Co de Phone Number [facility] [employer] [facility] [address] , [place] [address] * SHIGA TOXIN (07/22/2024 12:04 PM EDT) Shiga Toxin Shiga toxins (produced by E. coli) not detected. Shiga toxins (produced by E. coli) not detected. 07/23/2024 5:08 PM EDT [facility] [employer] Stool RECTUM STRUCTURE / Unknown 07/22/2024 12:04 PM EDT 07/22/2024 9:23 PM EDT us Anil Thompson DO MICROBIOLOGY - GENERAL ORDER ARJUN Final Result Performing Organization Address [facility] de Phone Number [facility] [facility] [address] , [place] [address] * STOOL CULTURE (NO STAIN) (07/22/2024 12:04 PM EDT) Culture No growth of enteric pathogens, including Salmonella, Shigella, Campylobacter, Vibrio, Yersinia, Aeromonas, Plesiomonas, or E. coli O157. 07/24/2024 7:50 AM EDT [facility] [employer] [facility] Stool RECTUM STRUCTURE / Unknown 07/22/2024 12:04 PM EDT 07/22/2024 12:11 PM EDT Anil Thompson DO MICROBIOLOGY - GENERAL ORDER ARJUN Final Result Performing Organization Address City/[facility] Co de Phone Number [facility] [employer] [facility] [address] , [place] [address] * C DIFF TOXIN DNA (07/22/2024 12:04 PM EDT) Stool RECTUM STRUCTURE / Unknown 07/22/2024 12:04 PM EDT 07/22/2024 12:11 PM EDT us Anil Thompson MICROBIOLOGY - GENERAL ORDER ARJUN Final Result [facility] [employer] [facility] , [place] [address] * US RENAL AND BLADDER [...] evaluation of the kidneys and bladder with shipping services sales representative images and bolting machine operator notes sent to PACS for radiologist review. [...] sonographic evaluation of the kidneys andbladder with shipping services sales representative images and bolting machine operator notes sent to PACS forradiologist review. FINDINGS: [...] please contactthe office of the ordering clinician. Anil Thompson DO IMG US ORDERABLES Final Resu lt * (ABNORMAL) GLUCOSE METER POC (07/22/2024 10:05 AM EDT) Glucose Meter POC 110(H) 70 - 100 mg/dL 07/22/2024 10:06 AM EDT [facility] Sample Type Capillary 07/22/2024 10:06 AM EDT [facility] Patient Status Non-Critical Patient 07/22/2024 10:06 AM EDT [facility] Blood BLOOD SPECIMEN / Unknown 07/22/2024 10:05 AM EDT 07/22/2024 10:06 AM EDT Anil Thompson DO POINT OF CARE TEST ORDERABLE S Final Result [facility] [address] [place], [place] [id number] * ECG AND WAVEFORMS - TELEMETRY (07/22/2024 7:00 AM EDT) ECG INTERPRET NSR [facility] 07/22/2024 7:00 AM EDT Narrative [facility] - 07/22/2024 11:03 AM EDT VR, ROUTINE IL 0.20 QRS 0.10 RR 0.79 QT 0.37 QTc 0.41 See Clinical Report link for waveform capture us Unknown Provider POINT OF CARE CARDIOLOGY Final Result Performing Organization Address City/[facility]/ZIP Co de Phone Number [facility] [address] [place] [phone] * (ABNORMAL) GLUCOSE METER POC (07/22/2024 6:59 AM EDT) Glucose Meter POC 115(H) 70 - 100 mg/dL 07/22/2024 7:00 AM EDT [facility] Sample Type Capillary 07/22/2024 7:00 AM EDT [facility] Patient Status Non-Critical Patient 07/22/2024 7:00 AM EDT [facility] Blood BLOOD SPECIMEN / Unknown 07/22/2024 6:59 AM EDT 07/22/2024 7:00 AM EDT Anil Thompson DO POINT OF CARE TEST ORDERABLE S Final Result Performing Organization Address [facility]/ZIP Co de Phone Number [facility] [address] [place] [phone] * (ABNORMAL) BASIC METABOLIC PANEL (07/22/2024 4:45 [...] mg/dL 07/22/2024 7:33 AM EDT [facility] eGFR (CKD-EPIcr 2020) 41(L) >=60 mL/min/1.7 3 m2 07/22/2024 7:33 AM EDT [facility] Comment:Estimated GFR was ca lculated using the CKD-EPIcr (2020) equation refit without race. The equation is recommended by the National Kidney Foundation - [place] [employer] of Nephrology Task Force. Blood VENOUS BLOOD / Unknown Venipuncture / Unknown 07/22/2024 4:45 AM EDT 07/22/2024 5:07 AM EDT us Anil Thompson DO CHEMISTRY ORDERABLES Final R esult [facility], [facility] [address] , [place] [address] * (ABNORMAL) CBC (07/22/2024 4:45 AM EDT) [...] % 07/22/2024 6:40 AM EDT [facility], [facility] Platelet 266 155 - 369 x10(3)/mcL 07/22/2024 6:40 AM EDT [facility], [facility] MPV 9.9 8.8 - 12.5 fL 07/22/2024 6:40 AM EDT [facility] [employer], [facility] Blood VENOUS BLOOD / Unknown Venipuncture / Unknown 07/22/2024 4:45 AM EDT 07/22/2024 5:07 AM EDT us Nury Mcdermott APRN HEMATOLOGY ORDERABLES Final R esult [facility], [facility] [address] , [place] [address] * VANCOMYCIN LEVEL (07/22/2024 4:45 AM EDT) Vanco Random 14.6 mcg/mL 07/22/2024 5:44 AM EDT [facility], [facility] Blood VENOUS BLOOD / Unknown Venipuncture / Unknown 07/22/2024 4:45 AM EDT 07/22/2024 5:07 AM EDT Cat Jules MD CHEMISTRY ORDERABLES Final Result Performing Organization Address City/[facility]/ZIP Co de Phone Number [facility] [address] , [place] [address] * (ABNORMAL) GLUCOSE METER POC (07/21/2024 11:35 PM EDT) Glucose Meter POC 102(H) 70 - 100 mg/dL 07/21/2024 11:36 PM EDT [facility] Sample Type Capillary 07/21/2024 11:36 PM EDT [facility] Patient Status Non-Critical Patient 07/21/2024 11:36 PM EDT [facility] Blood BLOOD SPECIMEN / Unknown 07/21/2024 11:35 PM EDT 07/21/2024 11:36 PM EDT Anil Thompson DO POINT OF CARE TEST ORDERABLE S Final Result Performing Organization Address City/[facility]/ZIP Co de Phone Number [facility] [address] [place] [address] * ECG AND WAVEFORMS - TELEMETRY (07/21/2024 10:57 PM EDT) ECG INTERPRET NSR [facility] 07/21/2024 10:5 7 PM EDT Narrative [facility] - 07/21/2024 10:59 PM EDT ROUTINE/af IL 0.18 QRS 0.09 RR 0.71 QT 0.37 QTc 0.44 See Clinical Report link for waveform capture us Unknown Provider POINT OF CARE CARDIOLOGY Final Result Performing Organization Address [facility] Co de Phone Number [facility] [address] [place] [address] * URINE CULTURE (NO STAIN) (07/21/2024 6:04 PM EDT) Culture Multiple bacterial species isolated from urine consistent with urogenital commensal organisms. 07/23/2024 3:11 AM EDT [facility] [employer] Urine STRUCTURE OF URINARY TRACT PROPER / Unknown 07/21/2024 6:04 PM EDT 07/21/2024 6:17 PM EDT us Cat Jules MD MICROBIOLOGY - GENERAL ORD ERABLES Final Result [facility] [address] [facility], [place] [address] * EXTRA BE URINE CX (07/21/2024 6:04 PM EDT) Urine STRUCTURE OF URINARY TRACT PROPER / Unknown 07/21/2024 6:04 PM EDT 07/21/2024 6:09 PM EDT Cat Jules MD MICROBIOLOGY - GENERAL ORD ERABLES Final Result [facility] [address] [place] [phone] * (ABNORMAL) URINALYSIS REFLEX (07/21/2024 6:04 PM EDT) UA Color Yellow 07/21/2024 6:17 PM EDT [facility] UA Appear Clear Clear 07/21/2024 6:17 PM EDT [facility] UA Glucose Negative Negative mg/dL 07/21/2024 6:17 PM EDT [facility] UA Ketones Negative Negative mg/dL 07/21/2024 6:17 PM EDT [facility] UA Blood Negative Negative 07/21/2024 6:17 PM EDT [facility], [facility] UA pH 6.0 5.0 - 8.0 pH 07/21/2024 6:17 PM EDT [facility] UA Protein 1+ (30-70 mg/dL)(A) Negative mg/dL 07/21/2024 6:17 PM EDT [facility] UA Urobilinogen Normal <=1 mg/dL 6:17 PM [...] Negative /HPF 07/21/2024 6:17 PM EDT [facility] [employer] Urine STRUCTURE OF URINARY TRACT PROPER / Unknown 07/21/2024 6:04 PM EDT 07/21/2024 6:09 PM EDT Cat Jules MD URINE ORDERABLES Final Res ult Performing Organization Address [facility]/ZIP Co de Phone Number [facility] [employer] , [place] [address] * (ABNORMAL) C-REACTIVE PROTEIN (07/21/2024 5:42 PM EDT) CRP 77.53(H) <=5.00 mg/L 07/21/2024 6:35 PM EDT [facility] [employer] Blood VENOUS BLOOD / Unknown Venipuncture / Unknown 07/21/2024 5:42 PM EDT 07/21/2024 5:51 PM EDT Cat Jules MD CHEMISTRY ORDERABLES Final Result Performing Organization Address [facility] Co de Phone Number [facility] [employer] , [place] [address] * (ABNORMAL) PROCALCITONIN (07/21/2024 5:42 PM EDT) Procalcitonin 0.50(H) <=0.49 ng/mL 07/21/2024 6:35 PM EDT [facility] [employer] Blood VENOUS BLOOD / Unknown Venipuncture / Unknown 07/21/2024 5:42 PM EDT 07/21/2024 5:51 PM EDT Narrative [facility] [facility] - 07/21/2024 6:35 PM EDT Procalcitonin <0.50 [...] CHEMISTRY ORDERABLES Final Result Performing Organization Address City/[facility]/ZIP Co de Phone Number [facility] [employer] [address] [facility], [place] [address] * LACTIC ACID (07/21/2024 5:42 PM EDT) Lactic Acid 1.2 0.5 - 1.9 mmol/L 07/21/2024 5:59 PM EDT [facility] Blood VENOUS BLOOD / Unknown Venipuncture / Unknown 07/21/2024 5:42 PM EDT 07/21/2024 5:45 PM EDT Cat Jules MD CHEMISTRY ORDERABLES Final Result Performing Organization Address City/[facility] Co de Phone Number [facility] [address] [place] [address] * XR CHEST AP PORTABLE (07/21/2024 [...] please contactthe office of the ordering clinician. Cat Jules MD IMG DIAGNOSTIC IMAGING ORD [...] please contactthe office of the ordering clinician. Cat Jules MD [facility] ORDERABLES Final Re sult * (ABNORMAL) BLOOD CULTURE RAGHAV GRAM POS (07/21/2024 4:58 PM EDT) [employer] Not Detected Not Detected 07/22/2024 6:26 PM EDT [facility] [email or web address] Not Detected Not Detected [...] ORD ERABLES Final Result Performing Organization Address [facility]/ZIP Co de Phone Number [facility] [employer] [address] , [place] [address] * BLOOD CULTURE (NO STAIN) (07/21/2024 4:58 PM EDT) Culture Result No Growth at 120 hours. BLOOD CULTURE (NO STAIN) 07/26/2024 6:00 PM EDT [facility] [employer] Blood VENOUS BLOOD / Unknown Venipuncture / Unknown 07/21/2024 4:58 PM EDT 07/21/2024 5:02 PM EDT Cat Jules MD MICROBIOLOGY - GENERAL ORD ERABLES Final Result Performing Organization Address [facility] Co de Phone Number [facility] [employer] [address] [place] [address] , [place] [address] * (ABNORMAL) BLOOD CULTURE (NO STAIN) (07/21/2024 4:58 PM EDT) Culture Result Positive Growth(AA) BLOOD CULTURE (NO STAIN) 07/26/2024 11:54 AM EDT [facility] [employer] Culture Result Growth of Staphylococcus xylosus SUSCEPTIBI LITY RESULT 07/26/2024 11:54 AM EDT [facility] Blood VENOUS BLOOD / Unknown Venipuncture / [...] ORD ERABLES Final Result Performing Organization Address City/[facility]/ZIP Co de Phone Number [employer] [address] [place] [address] [place] [address] * (ABNORMAL) SEDIMENTATION RATE AUTOMATED (07/21/2024 4:01 PM EDT) [facility] Sed Rate 58(H) 0 - 20 mm/hr 07/21/2024 4:51 PM EDT [facility] Blood VENOUS BLOOD / Unknown Venipuncture / Unknown 07/21/2024 4:01 PM EDT 07/21/2024 4:07 PM EDT Cat Jules MD HEMATOLOGY ORDERABLES Jaimee l Result Performing Organization Address City/[facility]/ZIP Co de Phone Number [employer] [address] [place] [address] [place] [address] * (ABNORMAL) GLUCOSE METER POC (07/21/2024 4:01 PM EDT) [facility] Signature Glucose Meter POC 129(H) 70 - 100 mg/dL 07/21/2024 4:03 PM EDT [facility] Sample Type Venous 07/21/2024 4:03 PM EDT [facility] Patient Status Non-Critica l Patient 07/21/2024 4:03 PM EDT [facility] Blood BLOOD SPECIMEN / Unknown 07/21/2024 4:01 PM EDT 07/21/2024 4:03 PM EDT us Lab Test POINT OF CARE TEST ORDERABLES Fi nal Result [facility] [address] [place] [address] * (ABNORMAL) COMPREHENSIVE METABOLIC PANEL (07/21/2024 4:01 PM EDT) [facility] Sodium 136 136 - 145 mmol/L 07/21/2024 4:24 PM EDT [facility] Potassium 4.8 3.5 - 5.0 mmol/L 07/21/2024 4:24 PM EDT [facility] Chloride 103 98 - 107 mmol/L 07/21/2024 4:24 PM EDT [facility] Total CO2 19(L) 22 - 29 mmol/L 07/21/2024 4:24 PM EDT [facility] Anion Gap 14 7 - 16 mmol/L 07/21/2024 4:24 PM EDT [facility] Calcium 8.9 8.8 - 10.4 mg/dL 07/21/2024 4:24 PM EDT [facility] Glucose Lvl 139(H) 70 - 99 mg/dL 07/21/2024 4:24 PM EDT [facility] BUN 32(H) 8 - 23 mg/dL 07/21/2024 4:24 PM EDT [facility] Creatinine 2.08(H) 0.67 - 1.30 mg/dL 07/21/2024 4:24 PM EDT [facility] Albumin 3.5 3.2 - 4.6 gm/dL 07/21/2024 4:24 PM EDT [facility] Total Protein 6.6 6.4 - 8.3 gm/dL 07/21/2024 4:24 PM EDT [facility] Bili Total <0.2(L) 0.2 - 1.4 mg/dL 07/21/2024 4:24 PM EDT [facility] ALT 8 <=41 U/L 07/21/2024 4:24 PM EDT [facility] AST 11 <=40 U/L 07/21/2024 4:24 PM EDT [facility] Alk Phos 96 40 - 129 U/L 07/21/2024 4:24 PM EDT [facility] eGFR (CKD-EPIcr 2020) 34(L) >=60 mL/min/1.7 3 m2 07/21/2024 4:24 PM EDT [facility] Comment:Estimated GFR was ca lculated using the CKD-EPIcr (2020) equation refit without race. The equation is recommended by the National Kidney Foundation - [place] Society of Nephrology Task Force. Blood VENOUS BLOOD / Unknown Venipuncture / Unknown 07/21/2024 4:01 PM EDT 07/21/2024 4:07 PM EDT us Cat Jules MD CHEMISTRY ORDERABLES Final Result [facility] [address] [place] [id number] * (ABNORMAL) CBC WITH DIFF (07/21/2024 4:01 PM EDT) WBC 18.4(H) 3.7 - 10.3 x10(3)/mc L 07/21/2024 5:45 PM EDT [facility] RBC 4.20(L) 4.60 - 6.10 x10(6)/mc L 07/21/2024 5:45 PM EDT [facility] Hgb 11.8(L) 13.7 - 17.5 g/dL 07/21/2024 5:45 PM EDT [facility] Hct 37.3(L) 40.0 - 51.0 % 07/21/2024 5:45 PM EDT [facility] MCV 88.8 80.0 - 100.0 fL 07/21/2024 5:45 PM EDT [facility] MCH 28.1 26.0 - 34.0 pg 07/21/2024 5:45 PM EDT [facility] MCHC 31.6 30.7 - 35.5 g/dL 07/21/2024 5:45 PM EDT [facility] RDW 15.3(H) <=14.9 % 07/21/2024 5:45 PM EDT [facility] Platelet 321 155 - 369 x10(3)/mc L 07/21/2024 5:45 PM EDT [facility] MPV 9.7 8.8 - 12.5 fL 07/21/2024 5:45 PM EDT [facility] Segs 38 % 07/21/2024 5:45 [...] 5:45 PM EDT [facility] [place] # 1.5(H) 0.3 - 0.9 x10(3)/mc L [...] 5:45 PM EDT [facility] [place] Cell Occasional 07/21/2024 5:45 PM EDT [facility] Blood VENOUS BLOOD / Unknown Venipuncture / Unknown 07/21/2024 4:01 PM EDT 07/21/2024 4:07 PM EDT Cat Jules MD HEMATOLOGY ORDERABLES Jaimee rodriges Result [facility], [address], [place] [address] [facility] [address] [place] [address] documented in this encounter Visit Diagnoses Diagnosis ZAC (acute kidney injury)- Primary Acute kidney failure, unspecified ZAC (acute kidney injury) Acute kidney failure, unspecified Pancolitis (HCC) Cascade ulcerative (chronic) colitis Stage 3 chronic kidney [...] PRN, Starting on Sat07/21/24 at 2329, Until 07/26/24 at 2006, Line Care, Flush with a minimum of [...] Indication: Bacteremia 917 (Given - Provider: Francoise Uriostegui RN) 835 (Given - Provider: Francoise Uroistegui RN) 911 (Given - Provider: Vianney Doyle, DAVID) enoxaparin (LOVENOX) injection 40 mg 40 mg, Subcutaneous, 2 TIMES DAILY, First dose on Sat07/22/24 at 2100, Until Discontinued 917 (Given - Provider: Francoise Uriostegui RN)2109 (Given - Provider: Nenita Hernandez, DAVID) 08 (Given - Provider: Francoise Uriostegui RN)2029 (Given [...] maintenance. 0918 (Given - Provider: Francoise Uriostegui RN)211 (Given - Provider: Nenita Hernandez, DAVID) 0836 (Given - Provider: Francoise Uriostegui RN)203 (Given - Provider: Tanya Goodman, DAVID) 0912 [...] Nenita Hernandez RN)1254 (Given - Provider: Francoise rUiostegui RN)1705 (Given - Provider: Francoise Uriostegui RN)2355 (Given - Provider: Nenita Hernandez RN) 0547 (Given - Provider: Nenita Hernandez RN)1111 (Given - Provider: Francoise Uriostegui RN)1722 (Given - Provider: Francoise Uriostegui RN)2320 (Given - Provider: Tanya Goodman, DAVID) 0528 (Given - Provider: Tanya Goodman, DAVID)1123 (Given - Provider: Vianney Doyle, DAVID) PRN Medication Order 07/24/2024 07/25/2024 07/26/2024 calcium carbonate (TUMS) chewable tablet 500-1,000 mg 500-1,000 mg, Oral, EVERY 4 HOURS PRN, Starting on Sat07/22/24 at 1759, Until 07/26/24 at 2006, Indigestion, Max of 16 tablets per day. 0441 (Given - Provider: Nenita Hernandez RN)1136 (Given - Provider: Francoise Uriostegui RN)2355 (Given - Provider: Nenita Hernandez RN) 0448 (Given - Provider: Nenita Hernandez RN)1115 (Given - Provider: Francoise Uriostegui RN)1515 (Given - Provider: Francoise Uriostegui RN)2327 (Given - Provider: Tanya Goodman, RN) 0531 (Given - Provider: Tanya Goodman, RN)0916 (Given - Provider: Vianney Doyle, RN) dextrose 50 % solution 25 mL 25 [...] Francoise Uriostegui RN)2027 (Given - Provider: Tanya Goodman, DAVID) 0916 (Given - Provider: Vianney Doyle, DAVID) [...] Nenita Hernandez RN)1724 (Given - Provider: Francoise Uriostegui, DAVID)2326 (Given - Provider: Tanya Goodman, RN) 0530 (Given - Provider: Tanya Goodman, RN)1123 (Given - Provider: Vianney Doyle RN) sodium chloride 0.9% IV line flush 20-50 mL 20-50 mL, Intravenous, at 150-600 mL/hr, PRN, Starting on Sat07/21/24 at 232, Until Sat07/26/24 at 2005, Line Care, Flush with a minimum of 20 mL after IVPB to insure complete administration of the dose. May use the saline infusion to back flush IVPB tubing as needed. sodium chloride 0.9% syringe Intravenous, PRN, Starting on Sat07/21/24 at 2328, Until Sat07/26/24 at 2005, Line Care, Flush with 5-10 mL saline pre/post IVP, and 5 mL prior to IVPB or blood product administration. 0441 (Given - Provider: Nenita Hernandez RN)2355 (Given - Provider: Nenita Hernandez RN) sterile [...] med 1 mL, Injection, PRN, Starting on 07/21/24 at 2009, Until 07/26/24 at 2005, Use for drug dilution, Use [...] documented as of this encounter Care Teams Pedicurist Relationship Specialty Start Date End Date Viridiana Oropeza MD [address] [place] [address] PCP - General 01/19/09 Pankaj Navarro MD [address] [place], [place] [id number] Physician Otolaryngology 09/18/23 documented as of this encounter
[2024-08-17 19:34] LABS: Hematocrit 35.3 % (42.0-52.0); Hemoglobin 10.6 g/dL (14.1-18.0); Immature Granulocytes % 0.1 %; Mean Corpuscular HGB Conc 30.0 g/dL (31.8-35.4); Mean Corpuscular Hemoglobin 27.5 pg (27.0-31.2); Mean Corpuscular Volume 91.7 fl (80-94); Nucleated Red Blood Cells % 0 %; Platelet Count 222 K/mm3 (142-424); Red Blood Count 3.85 M/mm3 (4.60-6.20); Red Cell Distribution Width-SD 56.2 fL; White Blood Count 8.7 K/mm3 (4.8-10.8)
[2024-08-17 20:08] LABS: Alanine Aminotransferase 12 U/L (12-78); Albumin Level 4.0 g/dl (3.5-5.0); Albumin/Globulin Ratio 1.5 (1.1-1.8); Alkaline Phosphatase 88 U/L (38-126); Anion Gap 17.0 mEq/L (5-15); Aspartate Amino Transferase 22 U/L (17-59); Bilirubin,Total 0.6 mg/dl (0.2-1.3); Blood Urea Nitrogen 23 mg/dl (9-20); Calcium 9.0 mg/dl (8.4-10.2); Carbon Dioxide 25 mmol/L (22.0-30.0); Chloride 103 mmol/L (98-107); Cholesterol 253 mg/dl (140-200); Creatinine,Serum 1.60 mg/dl (0.66-1.25); Estimated Glomerular Filt Rate 43 ml/min (>60); GFR (African American) 52 ML/MIN (>60); Globulin 2.7 g/dL (1.3-3.2); Glucose 88 mg/dl (74-100); HDL Cholesterol 27 mg/dl (40-60); Potassium 5.0 mmoL/L (3.5-5.1); Sodium 140 mmol/L (136-145); Total Protein,Serum 6.7 g/dl (6.3-8.2); Triglycerides 352 mg/dl (30-150)
[2024-08-17 20:37] LABS: Thyroid Stimulating Hormone 2.55 uIU/mL (0.465-4.68)
--- OUTSIDE RECORDS SUMMARY | 2024-08-18 07:57 | XMS_ITS | Encounter Summary ---
Author Organization [place] [address] Care Team Providers Care Duplicate Maker Name Role Phone Viridiana Oropeza MD Primary Care Provider [phone] Pankaj Navarro MD Unavailable [phone] Reason for Visit * Reason Onset Date Comments CM- Telephonic Outreach 07/30/2024 Hospital Follow Up 07/30/2024 Encounter Details Date Type Department Care Team (Late Contact Info) Description 07/30/2024 Patient Outreach [facility] [address] Appointment Location May Differ [place] [id number] Wen Ayers, RN CM- Telephonic Outreach; Hospital Follow Up Social History Tobacco Use Types Packs/Day Years Used Date Smoking Tobacco: Never Passive Smoke Exposure: Never Smokeless Tobacco: Never Alcohol Use Standard Drinks/Week Comments No 0 (1 standard drink = 0.6 oz pur e alcohol) [facility] Utilities Answer Date Recorded In the past 12 months has [employer], gas, oil, or water [employer] threatened to shut off services in your home? No 07/22/2024 Overall Financial Resource Strain (CARDIA) Answe r Date Recorded How hard is it for you to pa y for the very basics like food, housing, medical care, and heating? Not hard at all 07/22/2024 PHQ-2 Answer Date Recorded PHQ-2 Total Score 0 07/22/2024 [facility] [facility] Occupat ional [facility] - Occupational Stress [...] things needed for daily living? No 01/21/2020 [facility] IP Transportation Answer D ate Recorded In [...] on file documented as of this encounter Functional Status * Is the [...] Tiffany Mccullough CCMA documented in this encounter Progress Notes * Wen Ayers RN - 07/30/2024 8:29 AM EDT Patient Outreach Second attempt to contact patient regarding hospital follow up contact. Outcome: Unable to reach patient by phone Voicemail box is full/not set up Patient can return call to Wen Ayers [phone] documented in this encounter Plan of Treatment Upcoming Encounters Date Type Department Care Team (Late st Contact Info) Description 09/16/2024 12:15 PM EDT Office Visit [facility] [address] [place] [address] Viridiana Oropeza MD [address] [place] [address] documented as of this encounter [...] documented as of this encounter Visit Diagnoses Not on filedocumented in this encounter Additional Health Concerns Infection Onset Date Last Indicated Resolved Time C-diff 07/22/2024 07/22/2024 Assessment Noted Time A fall risk assessment has been complete d for the patient 01/06/2024 10:53 AM EST documented as of this encounter Care Teams Duplicate Maker Relationship Specialty Start Date End Date Viridiana Oropeza MD [address] [place] [address] PCP - General 01/19/09 Pankaj Navarro MD [address] [place] [id number] Physician Otolaryngology 09/18/23 documented as of this encounter
--- OUTSIDE RECORDS SUMMARY | 2024-08-18 07:57 | XMS_ITS | Encounter Summary ---
Author Organization [place] [address] Care Team Providers Care Top Carrier Name Role Phone Viridiana Oropeza MD Primary Care Provider [phone] Pankaj Navarro MD Unavailable [phone] Reason for Visit * Reason Onset Date Comments Hospital Follow Up 07/28/2024 Encounter Details Date Type Department Care Team (Late st Contact Info) Description 07/28/2024 Patient Outreach SEP Care Managment [facility] Marco Antonio Moya [address]. [address] Appointment Location May Differ [place] [id number] Lexis Kahn RN Hospital Follow Up Social History Tobacco Use Types Packs/Day Years Used Date Smoking Tobacco: Never Passive Smoke Exposure: Never Smokeless Tobacco: Never Alcohol Use Standard Drinks/Week Comments No 0 (1 standard drink = 0.6 oz pur e alcohol) [facility] Utilities Answer Date Recorded In the past 12 months has [employer] electric, gas, oil, or water company threatened to shut off services in your home? No 07/22/2024 Overall Financial Resource Strain (CARDIA) Answe r Date Recorded How hard is it for you to pa y for the very basics like food, housing, medical care, and heating? Not hard at all 07/22/2024 PHQ-2 Answer Date Recorded PHQ-2 Total Score 0 07/22/2024 [facility] [place] of Occupat ional Health - Occupational Stress [...] things needed for daily living? No 01/21/2020 [facility] IP Transportation Answer D ate [...] documented in this encounter Progress Notes * Lexis Kahn RN - 07/28/2024 11:05 AM EDT Patient Outreach First attempt to contact patient regarding hospital follow up contact. Outcome: Unable to reach patient by phone Voicemail box is full/not set up Patient can return call to Lexis Kahn RN [employer] Care Management Team [facility] [phone] documented in this encounter Plan of Treatment Upcoming Encounters Date Type Department Care Team (Late st Contact Info) Description 09/16/2024 12:15 PM EDT Office Visit SEP [facility] [address] [place] [address] Viridiana Oropeza MD [address] [place] [address] documented as of this encounter [...] documented as of this encounter Care Teams Top Carrier Relationship Specialty Start Date End Date Viridiana Oropeza MD [address] [place] [address] PCP - General 01/19/09 Pankaj Navarro MD [address] [place] [address] Physician Otolaryngology 09/18/23 documented as of this encounter
--- OUTSIDE RECORDS SUMMARY | 2024-08-18 07:58 | XMS_ITS | Encounter Summary ---
Author Organization [facility] Address [address] [place] [address] Care Team Providers Care Anode Adjuster Name Role Phone Viridiana Oropeza MD Primary Care Provider [phone] Gerardo Mcbride Unavailable [phone] Reason for Visit * Reason Onset Date Comments abnormal labs 07/20/2024 Mr. Gosss labwo rk showed an elevated creatinine, WBC of 21,000 and and a marked increase in his CRP. I have contacted him with these lab results and expressed concern about the potential for a recurrent hip infection. I have advised him to go to the ED for further evaluation. Encounter Details Date Type Department Care Team (Late st Contact Info) Description 07/20/2024 Results Follow-Up [facility] [address] [place] [id number] Wilfredo Forte MD [address] [place] [address] [address] [place] [address] abnormal labs (Mr. Gosss labwork showed an elevated creatinine, WBC of 21,000 and and a marked increase in his CRP. I have contacted him with these lab results and expressed concern about the potential for a recurrent hip infection. I have advised him to go to the ED for further evaluation.) Social History Tobacco Use Types Packs/Day Years [...] answer 05/04/2024 How often do you attend [facility] or jehovah's witness services? Patient unable to answer 05/04/2024 Do you belong to any clubs o r organizations such as zoroastrian groups, unions, fraternal or athletic groups, or [...] Recorded Patient Health Questionnaire-2 Score 0 06/15/2024 [facility] - Occupational Stress Questionnaire Answer [...] any time in the past 12 m [facility], were you homeless or living in a senior care (including now)? No 05/04/2024 Utilities Answer Date [...] on file documented as of this encounter Plan of Treatment Not on file documented as of this encounter Goals Goal Patient Goal Type Associated Problems Recent Progress Patient-Stated? Author Ashtyn barrientos Goal Care Plan Autogenerated Problem No Chris Ortiz Goal Care Plan Autogenerated Problem No Mohan Wagoner PA documented as of this encounter Visit Diagnoses Not on filedocumented in this encounter Additional Health Concerns Active [...] documented as of this encounter Care Teams Anode Adjuster Relationship Specialty Start Date End Date Viridiana Oropeza MD [address] [place] [address] PCP - General 03/13/22 Gerardo Mcbride [address] [place] [address] 08/23/23 documented as of this encounter
--- OUTSIDE RECORDS SUMMARY | 2024-08-18 07:58 | XMS_ITS | Encounter Summary ---
Author Organization [place] [address] Care Team Providers Care Evp Operations Name Role Phone Viridiana Oropeza MD Primary Care Provider [phone] Pankaj Navarro MD Unavailable [phone] Reason for Visit * Reason Onset Date Comments Refill 08/07/2024 Oxycodone - refi ll Encounter Details Date Type Department Care Team (Late Contact Info) Description 08/07/2024 Telephone [facility] [address] [place] [address] Viridiana Oropeza MD [address] [place] [address] Refill (Oxycodone - refill ) Social History Tobacco Use Types Packs/Day Years Used Date Smoking Tobacco: Never Passive Smoke Exposure: Never Smokeless Tobacco: Never Alcohol Use Standard Drinks/Week Comments No 0 (1 standard drink = 0.6 oz pur e alcohol) [facility] Utilities Answer Date Recorded In the past 12 months has [employer], gas, oil, or water [employer] threatened to shut off services in your home? No 07/22/2024 Overall Financial Resource Strain (CARDIA) Answe r Date Recorded How hard is it for you to pa y for the very basics like food, housing, medical care, and heating? Not hard at all 07/22/2024 PHQ-2 Answer Date Recorded PHQ-2 Total Score 0 07/22/2024 [facility] [place] of Occupat ional Health - Occupational Stress [...] things needed for daily living? No 01/21/2020 [facility] IP Transportation Answer D ate Recorded [...] Refills Last Filled Start Date End Date oxyCODONE-acetamin ophen (PERCOCET) 10-325 mg Oral TabletIndications: Chronic pain syndrome TAKE 1 TABLET BY MOUTH EVERY 8 HOURS NEEDED FOR CHRONIC PAIN 90 Tablet 08/07/2024 documented in this encounter Miscellaneous Notes * Telephone Encounter - Yvette Michele MA - 08/07/2024 11:55 AM EDT Patient notified * Telephone Encounter - Johnathan Parrish MD - 08/07/2024 11:46 AM EDT Prescription sent to pharmacy. Please notify patient * Telephone Encounter - Kristi Sawyer LPN - 08/07/2024 8:40 AM EDT Pharmacy:[id number] - [place] [address] [address] [phone] Controlled Contract Updated / Signed 08/17/2022- [facility] Informed Consent Updated / Signed 08/17/2022 UDS 06/22/2024 - as expected Omid as expected 06/22/2024 LF 07/07/2024 Last seen 06/22/2024 * Telephone Encounter - Alejandra Bass - 08/07/2024 8:34 AM EDT Select the most appropriate reason for this telephone message: Medication Refill Who is requesting the refill: Patient Medication(s)Name/Dosage/Frequency: Disp Refills Start End oxyCODONE-acetaminophen (PERCOCET) 10-325 mg Oral Tablet 90 Tablet 0 07/07/2024 -- Sig: TAKE 1 TABLET BY MOUTH EVERY 8 HOURS NEEDED FOR CHRONIC PAIN Did patient contact the pharmacy first: No How many days left on hand: 0 Future appt date w/ prescribing provider: 09/16/24 Pharmacy & Location: [id number] [place] [address] [address] [place], [place] [address]Munir BLANDON - Return Method of Communication: N/A Additional Information: N/A documented in this encounter Plan of Treatment Upcoming Encounters Date Type Department Care Team (Late st Contact Info) Description 09/16/2024 12:15 PM EDT Office Visit SEP [facility] [address] [place] [address] Viridiana Oropeza MD [address] [place] [address] documented as of this encounter [...] as of this encounter Visit Diagnoses Diagnosis Chronic pain syndrome documented in this encounter Discontinued Medications Medication Sig Discontinue Reason Start Date End Da te oxyCODONE-acetaminophen (PERCOCET) 10-325 mg Oral TabletIndications:Chroni c pain syndrome TAKE 1 TABLET BY MOUTH EVERY 8 HOURS NEEDED FOR CHRONIC PAIN Reorder 07/07/2024 08/07/2024 documented as of this encounter Additional Health Concerns Infection Onset Date Last Indicated Resolved Time C-diff 07/22/2024 07/22/2024 Assessment Noted Time A fall risk assessment has been complete d for the patient 01/06/2024 10:53 AM EST documented as of this encounter Care Teams Evp Operations Relationship Specialty Start Date End Date Viridiana Oropeza MD [address] [place] [address] PCP - General 01/19/09 Pankaj Navarro MD [address] [place] [address] Physician Otolaryngology 09/18/23 documented as of this encounter
--- OUTSIDE RECORDS SUMMARY | 2024-08-18 07:58 | XMS_ITS | Encounter Summary ---
Author Organization [facility] Address [address] [place] [address] Care Team Providers Care Hoof Trimmer Name Role Phone Viridiana Oropeza MD Primary Care Provider [phone] Gerardo Mcbride Unavailable [phone] Encounter Details Date Type Department Care Team (Late st Contact Info) Description 08/05/2024 Telephone [facility] [address] [place] [address] Roxana Wagoner Social History Tobacco Use Types Packs/Day Years [...] answer 05/04/2024 How often do you attend chur or methodist services? Patient unable to answer 05/04/2024 Do you belong to any clubs o r organizations such as buddhism groups, unions, fraternal or athletic groups, or [...] Recorded Patient Health Questionnaire-2 Score 0 06/15/2024 [facility] - Occupational Stress Questionnaire Answer Date [...] any time in the past 12 m [facility], were you homeless or living in a fci (including now)? No 05/04/2024 Utilities Answer Date [...] on file documented as of this encounter Miscellaneous Notes * Telephone Encounter - Maye Gutiérrez LPN - 08/05/2024 3:10 PM EDT Wilfredo Forte MD P [facility] Clinical Leather Cartridge Belt Maker I saw Mr. Chauhan two weeks ago. His labwork showed elevated CRP, WBC 21 and newly elevated creatinine consistent with renal failure. I contacted him and advised him to go to the ED for evaluation. He was going to do that at [facility] but I dont see that he did that. Can someone follow up with him and see if he went somehwere for evaluation. Updated Care Everywhere and notified the provider the patient was seen in the ED at [facility] and admitted. Updated records and results crossed over to [facility]. * Telephone Encounter - Roxana Wagoner - 08/05/2024 10:36 AM EDT Attempted to call pt to follow up with him and to see if he had went somewhere for an evaluation. Pt didn't answer and was none able to left vm because the vm box was full. documented in this encounter Plan of Treatment Not on file documented as of this encounter Goals Goal Patient Goal Type Associated Problems Recent Progress Patient-Stated? Author Autogenera floyd Goal Care Plan Autogenerated Problem No Chris Ortiz Autogenera floyd Goal Care Plan Autogenerated Problem No Mohan [...] documented as of this encounter Care Teams Hoof Trimmer Relationship Specialty Start Date End Date Viridiana Oropeza MD [address] [place] [address] PCP - General 03/13/22 Gerardo Mcbride [address] [place] [address] 08/23/23 documented as of this encounter
--- OUTSIDE RECORDS SUMMARY | 2024-08-18 07:58 | XMS_ITS | Encounter Summary ---
Author Organization [facility] Address [address] [place] [id number] Care Team Providers Care Light Bulb Tester Name Role Phone Viridiana Oropeza MD Primary Care Provider [phone] Gerardo Mcbride Unavailable [phone] Reason for Referral * Consultation (Routine) - Closed Specialty Diagnoses / Procedures Referred By Contac t Referred To Contact Orthopaedic Surgery Diagnoses Pain in right hip Pain in left hip Cristobal Rosales PA [address] [place] [address] Phone: tel: fax: Alejandro Rojas MD [address] [facility] [address] [place] [address] Phone: tel: fax: Referral ID Status Reason Start Date Expiration Date V isits Requested Visits Authorized [id number] Closed Specialty Services Required 03/08/2022 09/07/2023 1 1 Encounter Details Date Type Department Care Team (Late st Contact Info) Description 03/08/2022 Community Orders [facility] [address] [place] [address] Cristobal Rosales PA [address] [place] [address] Pain in right hip (Primary Dx); Pain in left hip Social History Tobacco Use Types Packs/Day Years Used Date Smoking Tobacco: Never Assessed Sex and Gender Information Value Date Recorded Sex Assigned at Male 05/07/2024 12:48 PM EDT Legal Sex Male 3:06 PM EST Gender Identity Male 05/07/2024 12:48 PM EDT Sexual Orientation Not on file documented as of this encounter Plan of Treatment Scheduled Referrals Name Type Priority Associated Diagnoses Order Schedule Ambulatory referral to General Orthopaedics Outpatient Referral Routine Pain in right hip Pain in left hip Expected: 03/08/2022 (Approximate), Expires: 09/06/2023 documented as of this encounter Visit Diagnoses Diagnosis Pain in right hip- Primary Pain in left hip documented in this encounter Additional Health Concerns Infection Onset Date Last Indicated Resolved Time COVID-19 Rule-Out 03/28/2024 03/28/2024 03/28/2024 5:26 PM EST Respiratory Rule-Out 03/28/2024 03/28/2024 025 6:32 PM EST documented as of this encounter Care Teams Light Bulb Tester Relationship Specialty Start Date End Date Viridiana Oropeza MD [address] [place] [address] PCP - General 03/13/22 Gerardo Mcbride [address] [place] [address] 08/23/23 documented as of this encounter
--- OUTSIDE RECORDS SUMMARY | 2024-08-18 07:58 | XMS_ITS | Encounter Summary ---
Author Organization [facility] Address [address] [place] [address] Care Team Providers Care Insurance Adjuster Name Role Phone Viridiana Oropeza MD Primary Care Provider [phone] Gerardo Mcbride Unavailable Encounter Details Date Type Department Care Team (Latest Contact Info) Description 07/20/2024 Travel Social History Tobacco Use Types Packs/Day Years [...] do you attend [facility] or zoroastrianism services? Patient unable to answer 05/04/2024 Do you belong to any clubs o r organizations such as jehovah's witness groups, unions, fraternal or athletic groups, or [...] Recorded Patient Health Questionnaire-2 Score 0 06/15/2024 [facility] of Occupat ional Health - Occupational Stress [...] any time in the past 12 m [facility], were you homeless or living in a long-term (including now)? No 05/04/2024 Utilities Answer Date Recorded In the past 12 months has [employer], gas, oil, or water company threatened [...] Associated Problems Recent Progress Patient-Stated? Author Autogenera barrientos Goal Care Plan Autogenerated Problem No [...] documented as of this encounter Care Teams Insurance Adjuster Relationship Specialty Start Date End Date Viridiana Oropeza MD [address] [place] [address] PCP - General 03/13/22 Gerardo Mcbride [address] [place] [address] 08/23/23 documented as of this encounter
--- OUTSIDE RECORDS SUMMARY | 2024-08-18 07:58 | XMS_ITS | Encounter Summary ---
Author Organization [facility] Address [address] [place] [address] Care Team Providers Care Manager Banquet Name Role Phone Viridiana Oropeza MD Primary Care Provider [phone] RaeGerardo Unavailable [phone] Reason for Visit * Reason Onset Date Comments HCN - Patient Message 06/18/2024 Encounter Details Date Type Department Care Team ([facility] st Contact Info) Description 06/18/2024 Telephone Medical Office Building Surgery Spine [facility] Joint [address] [facility], [address] [place] [address] Alejandro Rojas MD [address] [place] [address] HCN - Patient Message Social History Tobacco Use Types Packs/Day Years [...] 05/04/2024 How often do you attend chur ch or zoroastrianism services? Patient unable to answer 05/04/2024 Do you belong to any clubs o r organizations such as adventism groups, unions, fraternal or athletic groups, or [...] Recorded Patient Health Questionnaire-2 Score 0 06/15/2024 [facility] - Occupational Stress Questionnaire [...] any time in the past 12 m [facility], were you homeless or living in a retirement (including now)? No 05/04/2024 Utilities Answer Date [...] encounter Miscellaneous Notes * Telephone Encounter - Caity Paul RN - 06/23/2024 4:27 PM EDT Spoke with Anjum. Anjum stated that one of the PT's did a visit with the patient today, so he is assuming that he is okay. He stated that he has not spoke with them but [facility] made a visit. I told him to reach out if anything else was needed or if there were any other concerns. * Telephone Encounter - Caity Paul RN - 06/23/2024 4:06 PM EDT Called Anjum. Left voicemail stating that we have tried to contact the patient. Told him I was calling to see if he had been in contact with patient since. Left my direct callback number to return call. * Telephone Encounter - Caity Paul RN - 06/23/2024 4:02 PM EDT 06/23/24: Tried to call patient to check on him, no answer. Voicemail box is full, so I was unable to leave message. * Telephone Encounter - Sue Duran RN - 06/23/2024 9:50 AM EDT 06/22/24: Attempted to call, VM full. Unable to leave message. * Telephone Encounter - Juany Natarajan RN - 06/19/2024 10:12 AM EDT Attempted to call patient to check on him. Unable to leave VM as mailbox full. * Telephone Encounter - Cat Sanchez - 06/18/2024 4:29 PM EDT Clinical Concern/Question Reason for Call: Crystal patient. Anjum with [employer] calling to report a missed visit with patient. He states patient cancelled the visit to go to the emergency room due to increased swelling in his legs. Best contact number: Other: [phone] Optimal time of day to reach caller: ANYTIME Additional comments/information from caller: None Note: Please do not reply to this message. Follow-up communication and further actions as a result of this message need to be communicated with the patient directly, if the patient is not active onMyChart. If the patient is active on MyChart, they will receive notification of the communication/outcome via mPort. documented in this encounter Plan of Treatment [...] has been complete d for the patient 06/15/2024 9:48 AM EDT A Body Mass Index follow-up plan has been documented for the patient 06/15/2024 10:42 AM EDT documented as of this encounter Care Teams Manager Banquet Relationship Specialty Start Date End Date Viridiana Oropeza MD [address] [place] [address] PCP - General 03/13/22 Gerardo Mcbride [address] [place] [address] 08/23/23 documented as of this encounter
--- OUTSIDE RECORDS SUMMARY | 2024-08-18 07:58 | XMS_ITS | Encounter Summary ---
Author Organization [facility] Address [address] [place] [address] Care Team Providers Care Senior Information Security Architect Name Role Phone Viridiana Oropeza MD Primary Care Provider RaeGerardo Unavailable [phone] Reason for Visit * Reason Onset Date Comments HCN - Patient Message 07/17/2024 Encounter Details Date Type Department Care Team ([facility] st Contact Info) Description 07/17/2024 Telephone Medical Office Building Surgery Spine & Joint [address] [facility], [address] [place] [address] Alejandro Rojas MD [address] [place] [address] HCN - Patient Message Social [...] often do you attend chur ch or mormon services? Patient unable to answer 05/04/2024 Do you belong to any clubs o r organizations such as holiness groups, unions, fraternal or athletic groups, or [...] Recorded Patient Health Questionnaire-2 Score 0 06/15/2024 [facility] - Occupational Stress Questionnaire [...] any time in the past 12 m [facility], were you homeless or living in a snf (including now)? No 05/04/2024 Utilities Answer Date [...] encounter Miscellaneous Notes * Telephone Encounter - Juany Natarajan RN - 07/17/2024 12:25 PM EDT Called Adela. She just wanted to let us know that patient missed PT visit but will probably have a D/C visit next time because he is doing well. * Telephone Encounter - Airam [place] - 07/17/2024 12:10 PM EDT Clinical Concern/Question Reason for Call: Adela Chase is calling from [employer] is requesting call back regarding pt has missedcouple of PT visit please call to advise Best contact number: [phone] Optimal time of day to reach caller: ANYTIME Additional comments/information from caller: None Note: Please do not reply to this message. Follow-up communication and further actions as a result of this message need to be communicated with the patient directly, if the patient is not active onMyChart. If the patient is active on MyChart, they will receive notification of the communication/outcome via MyChart. documented in this encounter Plan of Treatment [...] documented as of this encounter Care Teams Senior Information Security Architect Relationship Specialty Start Date End Date Viridiana Oropeza MD [address] [place] [address] PCP - General 03/13/22 Gerardo Mcbride [address] [place] [address] 08/23/23 documented as of this encounter
--- OUTSIDE RECORDS SUMMARY | 2024-08-18 07:58 | XMS_ITS | Clinical Summary ---
Author Organization [facility] Address [address] [place] [address] Phone Care Team Providers Care Vigoureux Printer Name Role Phone Viridiana Oropeza MD Primary Care Provider [phone] Pankaj Navarro MD Unavailable [phone] Allergies Active Allergy Reactions Criticality Noted Date Comments Empagliflozin Hives Medium 02/07/2018 Hives, bad dreams Hives, bad dreams Hives, bad dreams Medications cholecalciferol , vitamin D3, 25 mcg (1,000 unit) Oral Tablet Take 1 Tab by mouth daily. Active Blood Sugar Diagnostic Misc Strip Check BS bid 50 Each 11 04/02/19 25 Active Blood-Glucose Meter Misc Kit Check BS bid 1 Kit 04/02/19 25 Active Lancets Misc Misc Check BS bid 50 Each 11 04/02/19 25 Active acetaminophen 325 mg Oral Tab Take 650 mg by mouth every 8 hours. 04/01/19 25 Active metFORMIN (GLUCOPHAGE) 1,000 mg Oral TabletIndicatio ns:Hyperlipidem ia associated with type 2 diabetes mellitus (HCC) Take 1 Tablet by mouth 2 times daily. 180 Tablet 1 05/28/19 25 Active hydroCHLOROthia zide 25 mg Oral Tablet Take 1 Tablet by mouth daily. 30 Tablet 06/04/19 25 Active Additional Information Patient not taking.Reason: Pt electing to not take the medication, Reported on 07/21/2024 tiZANidine (ZANAFLEX) 4 mg Oral TabletIndicatio ns:Spondylosis of lumbosacral spine without myelopathy TAKE 1 TABLET BY MOUTH THREE TIMES A DAY NEEDED FOR MUSCLE SPASM 90 Tablet 5 04/28/20 25 Active rosuvastatin (CRESTOR) 10 mg Oral TabletIndicatio ns:Type 2 diabetes mellitus without complication, without long-term current use of insulin (HCC) Take 1 Tablet by mouth nightly. 90 Tablet 1 06/09/19 25 Active Additional Information Patient not taking.Reason: Pt electing to not take the medication, Reported on 07/21/2024 lisinopriL (PRINIVIL;ZESTR IL) 2.5 mg Oral TabletIndicatio ns:Type 2 diabetes mellitus without complication, without long-term current use of insulin (HCC) Take 1 Tablet by mouth daily. 90 Tablet 1 06/09/19 Active Additional Information Patient not taking.Reason: Therapy Completed, Reported on 07/21/2024 tamsulosin (FLOMAX) 0.4 mg Oral Capsule 0.4 mg daily. 06/18/19 Active triamcinolone (KENALOG) 0.1 % Top CreamIndication s:Dermatitis Apply topically 2 times daily. Take a 2 week break after each 2 weeks of use. 80 g 2 06/23/19 25 Active Additional Information Patient not taking.Reason: Therapy Completed, Reported on 07/21/2024 cetirizine (ZYRTEC) 10 mg Oral Tablet Take 1 Tablet by mouth daily as needed for Allergies. 30 Tablet 06/28/19 25 Active Additional Information Patient not taking.Reason: Therapy Completed, Reported on 07/21/2024 famotidine (PEPCID) 20 mg Oral Tablet Take 1 Tablet by mouth daily as needed for Other (allergic rash). 30 Tablet 06/28/19 25 Active oxyCODONE-aceta minophen (PERCOCET) 10-325 mg Oral TabletIndicatio ns:Chronic pain syndrome TAKE 1 TABLET BY MOUTH EVERY 8 HOURS NEEDED FOR CHRONIC PAIN 90 Tablet 08/08/19 25 Active potassium chloride (KLOR-CON 10) 10 mEq Oral Tablet Sustained Release Take 1 Tablet by mouth daily. 7 Tablet 06/19/19 25 025 Discontinu ed(Stop Taking at Discharge) vancomycin (VANCOCIN) 125 mg Oral Capsule Take 1 Capsule by mouth every 6 hours for 7 days. 28 Capsule 07/26/2024 3:31 PM EDT 07/27/19 25 025 Active Problems Patient Care Coordination No te Formatting of this note migh t be different from the original. Pharmacy:[id number] [place] [address] [address] [phone] Controlled Contract Updated / Signed 08/17/2022- [facility] Informed Consent Updated / Signed 08/17/2022 UDS 06/22/2024 - as expected Omid as expected 06/22/2024 Care gap audit completed by Keerthi Wisdom RN on 09/24/2023. Problem Noted Date Diagnosed Date C. 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 Chronic, continuous use of opioids 09/21/2015 Hyperlipidemia associated with type 2 diabetes bob holguin 08/12/2015 Type 2 diabetes mellitus with hyperglycemia 01/11 Overview (10/07/2017): Dx 12/26, A1c 6.9. OA (osteoarthritis) 12/23/2009 Overview (10/30/2019): Dr. Valle Failed mobic, celebrex, tramadol, cymbalta, neurontin Dr. Hathaway Resolved Problems Problem Noted Date Diagnosed Date Resolved Date Sepsis 09/02/2023 01/06/2024 Sialadenitis 08/29/2023 01/06/2024 Sepsis with acute hypoxic respiratory failure 08/28/19 24 03/23/2024 Cervicalgia 03/25/2018 10/30/2019 Multiple joint pain 03/25/2018 05/15/19 Myofascial pain 03/25/2018 01/06/2024 Chronic left shoulder pain 10/07/2017 0 05/14/2022 Umbilical hernia without obs truction and without gangrene 07/09/2017 01/06/2024 Status post total hip replacement, right 03/04/2015 01/06/2024 Status post total hip replacement, left 03/04/2015 01/06/2024 Obesity 05/09/2010 05/14/2022 Encounters Date Type Department Care Team Description 08/07/2024 Telephone [facility]P [facility] [address] [place] [address] Viridiana Oropeza MD Refill (Oxycodone - refill ) 07/30/2024 Patient Outreach [facility] [address] [place] [address] Wen Ayers, RN CM- Telephonic Outreach; Hospital Follow Up 07/28/2024 Patient Outreach [facility] [address] [place] [address] Lexis Kahn, DAVID Hospital Follow Up 07/21/2024 4:39 PM EDT - 07/26/2024 4:06 PM EDT Hospital Encounter [facility] [address] [place] [id number] Cat Jules MD Buchanan, Jamie L, ZAC (acute kidney injury) (Primary Dx); Pancolitis (HCC) Discharge Disposition: Home or Self Care 07/21/2024 Travel 07/07/2024 Telephone SEP [facility] [address] [place] [address] Viridiana Oropeza MD Refill (Percocet refill request) 06/27/2024 10:42 AM EDT - 06/27/2024 12:11 PM EDT [facility] [place] [address] Mango Carvajal MD Allergic drug rash (Primary Dx) Discharge Disposition: Home or Self Care 06/27/2024 Travel 06/23/2024 Results Follow-Up [address] [address] Lucia Dunlap PA-C COMPLIANCE OPIOID PANEL QUANT ONLY, URINE 06/23/[address] [address] Viridiana Oropeza MD Relaying Information (Pt is complaining of itching / redness that is spreading from his trunk to his legs and arms and is concerned about a possible allergic reaction since the redness and itching is spreading. Pt was seen yesterday and home health did help apply the cream but wanted to make provider aware it was getting worse and spreading. ) 06/22/2024 11:30 AM EDT Office Visit [address] [address] Viridiana Oropeza MD Dermatitis (Primary Dx); Chronic pain syndrome; DDD (degenerative disc disease), cervical; Medication monitoring encounter; 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, subsequent encounter 06/18/2024 2:08 PM EDT - 06/18/2024 7:32 PM EDT Emergency [facility] [address] Ruslan Campuzano MD Peripheral edema (Primary Dx); Hypertension, unspecified type; Stage 3 chronic kidney disease, unspecified whether stage 3a or 3b CKD (HCC) Discharge Disposition: Home or Self Care 06/18/2024 Travel 06/17/[address] [address] Viridiana Oropeza MD Other 06/08/2024 11:00 AM EDT Office Visit [address] [address] Viridiana Oropeza MD Postoperative infection, unspecified type, subsequent encounter (Primary Dx); Chronic pain syndrome; Iron deficiency anemia due to dietary causes; Obesity, Class III, BMI 40-49.9 (morbid obesity); Spondylosis of lumbosacral 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 [address] Wilfredo Forte MD Infection following a procedure, superficial incisional surgical site, subsequent encounter 06/05/[address] [address] Viridiana Oropeza MD Refill (Oxycodone refill request) 06/02/2024 Lab [address] [facility] [place] [address] Wilfredo Forte MD 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, implants and grafts, subsequent encounter 06/02/[address] [address] Viridiana Oropeza MD Other (Pt called to advise had a home health visit today and was told that he needed to reach out to PCP to be put on a light BP medication because it was running high the last few times he was seen by them. /Asked pt what his recent readings were and pt did not know this information. /Pt also advised the Home Health RN advised he should be on a water pill as well. /As well as a medication for his back spasms. //I advised pt he would likely need an appointment with the provider to assess him further to ) 05/29/[address] [address] Viridiana Oropeza MD Other 05/27/[address] [address] Viridiana Oropeza MD Refill (Metformin/Tizanidine ) from Last 3 Months Immunizations Immunization Administration Dates Next Due Influenza High Dose 01/06/2024 Influenza Virus Vaccine Quadrivalant, Flublok ,11/04/2017 Gracie SARS-CoV-2 Vaccine 04/22/2020 Moderna SARS-CoV-2 Booster V accine 18+ Yrs (Light Blue Border) 08/17/2021 Pfizer SARS-CoV-2 Vaccine Nabil-sucrose 12+ Yrs 0 03/27/2023 Pneumococcal Conjugate Vaccine 13 Valent 018 Pneumococcal Polysaccharide 23 Valent 02/21/2022 Quadrivalent Influenza High Dose 03/27/2023,02/11 Tdap 08/25/2014 Surgical History Surgery Date Site/Laterality Comments COLONOSCOPY COLONOSCOPY 06/16/2015 N/A COLONOSCOPY ; Surgeon: Pankaj Chavez MD; Location: [facility]; Service: Endoscopy HIP SURGERY 02/11/1995 - 02/11/1996 Bilateral nasima hip repacements SHOULDER ARTHROSCOPY 08/28/2016 Right RIGHT SHOULDER ARTHROSCOPIC ROTATOR CUFF REPAIR, DECOMPRESSION ACROMIOPLASTY ACROMIOCLAVICULAR JOINT EXCISION; Surgeon: Robbi Alvarez MD; Location: [facility]; Service: Orthopedics SHOULDER SURGERY CIRCUMCISION 03/15/2017 Scrotum/N/A CIRCUMCISION; Surgeon: Jameson Rodriguez MD; Location: [facility]; Service: Urology IR 2 LEVEL BILATERAL MEDIAL BRANCH BLOCK LUM SAC 02/18/2020 IR 2 LEVEL BILATERAL MEDIAL BRANCH BLOCK LUM SAC 02/18/2020 [facility] Medical History Medical History Date Comments Arthritis Obesity 05/09/2010 Type 2 diabetes mellitus wit hout complication (HCC) 01/25/2015 Dx 12/26, A1c 6.9. NIDDM on meds times 6 months Hyperlipidemia associated wi th type 2 diabetes mellitus (HCC) 08/12/2015 Hyperlipidemia Sepsis with acute hypoxic re spiratory failure (HCC) 08/28/2023 Obesity, Class III, BMI 40-4 9.9 (morbid obesity) 05/02/2017 Body mass index is 44.3 kg/m . Iron deficiency anemia due t o dietary causes 08/30/2023 Family History Medical History Relation Name Comments Diabetes Father Anesth Problems Neg Hx Relation Name Status Comments Father Alive Mother Alive Social History Tobacco Use Types Packs/Day Years Used Date Smoking Tobacco: Never Passive Smoke Exposure: Never Smokeless Tobacco: Never Alcohol Use Standard Drinks/Week Comments No 0 (1 standard drink = 0.6 oz pur e alcohol) [facility] Utilities Answer Date Recorded In [...] Recorded PHQ-2 Total Score 0 07/22/2024 [facility] [place] [facility] Occupat ional Health - Occupational Stress [...] things needed for daily living? No [facility]21/2020 [facility] Transportation Answer D ate Recorded In [...] file Not on file Not on file Obstetrics History Last Filed Vital Signs Vital Sign Reading [...] Mass Index 41.77 07/21/2024 9:49 PM EDT Plan of Treatment Upcoming Encounters Date Type Department Care Team (Late st Contact Info) Description 09/16/2024 12:15 PM EDT Office Visit [facility] [address] [place] [address] Viridiana Oropeza MD [address] [place] [address] Health Maintenance Due Date Last Done Comments Cologuard 2001 FIT 2001 Sigmoidoscopy 2001 Virtual Colonography 2001 Zoster (1 of 2) 2006 RSV or 60+ (1 - Risk 60-74 years 1-dose series) 2016 COVID-19 Vaccine ( - season) 2023 03/27/2023, 08/17/2021 Kidney Health: uACR 06/25/2024 06/26/2023, 11/20/2021, 01/21/2020, Additional history exists DTaP/TDaP/Td (2 - Td or Tdap) 08/25/2024 08/25/2014 Wellness Exam Medicare 10/01/2024 10/01/2023, 2022 Influenza Vaccine (#1) 2024 , 03/27/2023, 02/21/2022, Additional history exists Hemoglobin A1c 11/02/2024 05/02/2024, 04/12, 04/28/2024, Additional history exists Lipids 01/05/2025 01/06/2024, 09/12, 03/27/2023, Additional history exists Colon Cancer Screening 06/15/2025 Colonoscopy 06/15/2025 06/16/2015 Diabetic Eye Exam 06/25/2025 06/26/2023, 11/19/2017 Kidney Health: eGFR 07/25/2025 07/25/2024, 07/24/2024, 07/23/2024, Additional history exists Hepatitis C Screening Completed 01/24/2011 Pneumococcal Vaccine 50+ Completed 02/21/2022, 10/13 Hepatitis B Vaccine Aged Out No longe r eligible based on patient's age to complete this topic Meningococcal B Vaccine Aged Out No l onger eligible based on patient's age to complete this topic Goals Goal Patient Goal Type Associated Problems [...] 11:37 AM EDT) No Julia Chicas, DAVID Medical Devices Implanted Type Area Commercial Artist Device Identifier Shelf Expiration Date Model / Serial / Lot Bilateral Hip Replacements Procedures Procedure Name Priority Date/Time Associated Diagnosis [...] EDT ADMIT Routine 07/23/2024 2:28 PM EDT CBC WITH DIFF Early AM 07/23/2024 8:10 AM EDT COMPREHENSIVE METABOLIC PANEL Early AM 07/23/2024 8:10 AM EDT C-REACTIVE PROTEIN Early AM 07/23/2024 8: 10 AM EDT SEDIMENTATION RATE AUTOMATED Early AM 07/23/2024 8:10 AM EDT CREATINE KINASE Early AM 07/23/2024 8:10 AM EDT BLOOD CULTURE (NO STAIN) Early AM 07/23/2024 8:10 AM EDT BLOOD CULTURE (NO STAIN) Early AM 07/23/2024 8:10 AM EDT ECG [...] TOXIN A+B Routine 07/22/2024 12:04 PM EDT OVA AND PARASITE BASIC Routine 12:04 PM EDT SHIGA TOXIN Routine 07/22/2024 12:04 PM EDT STOOL CULTURE (NO STAIN) Routine 07/22/2024 12:04 PM EDT C DIFF TOXIN DNA Routine 07/22/2024 12:0 4 PM EDT US RENAL AND BLADDER DEISI 07/22/2024 10:53 AM EDT GLUCOSE METER POC Routine 07/22/2024 10: 05 AM EDT ECG AND WAVEFORMS - TELEMETRY Routine 07/22/2024 7:00 AM EDT GLUCOSE METER POC Routine 07/22/2024 6:5 9 AM EDT BASIC METABOLIC PANEL Add-On 07/22/2024 4:45 AM EDT CBC Routine 07/22/2024 4:45 AM EDT VANCOMYCIN LEVEL Early AM 07/22/2024 4:45 AM EDT GLUCOSE METER POC Routine 07/21/2024 11: 35 PM EDT ECG AND WAVEFORMS - TELEMETRY Routine 07/21/2024 10:57 PM EDT ADMIT Routine 07/21/2024 7:57 PM EDT URINALYSIS REFLEX STAT 07/21/2024 6:0 4 PM EDT UA W/REFLEX TO CULTURE STAT 6:04 PM EDT URINE CULTURE (NO STAIN) STAT 07/21/2024 6:04 PM EDT EXTRA BE URINE CX STAT 07/21/2024 6 :04 PM EDT C-REACTIVE PROTEIN STAT 07/21/2024 5: 42 PM EDT PROCALCITONIN STAT 07/21/2024 5:42 PM EDT LACTIC ACID STAT 07/21/2024 5:42 PM EDT XR CHEST AP PORTABLE STAT 07/21/2024 5:[address] LOWER EXTREMITY RIGHT WO CONTRAST STAT 07/21/2024 5:[address] ABDOMEN PELVIS WO ORAL OR IV CONTRAST STAT 07/21/2024 5:27 PM EDT IP CONSULT TO PHARMACY Routine 5:16 PM EDT BLOOD CULTURE RAGHAV GRAM POS Routine 07/21/2024 4:58 PM EDT BLOOD CULTURE (NO STAIN) STAT 07/21/2024 4:58 PM EDT BLOOD CULTURE (NO STAIN) STAT 07/21/2024 4:58 PM EDT GLUCOSE METER POC Routine 07/21/2024 4:0 1 PM EDT SEDIMENTATION RATE AUTOMATED Add-On 07/21/2024 4:01 PM EDT COMPREHENSIVE METABOLIC PANEL STAT 07/21/2024 4:01 PM EDT CBC WITH DIFF STAT 07/21/2024 4:01 PM EDT COMPLIANCE OPIOID PANEL QUANT ONLY, URINE Routine 06/22/2024 12:16 PM EDT Chronic pain syndrome DDD (degenerative disc disease), cervical Medication monitoring encounter C-REACTIVE PROTEIN STAT 06/18/2024 3: 31 PM EDT NT PROBNP STAT 06/18/2024 3:31 PM EDT BASIC METABOLIC PANEL STAT 06/18/2024 3:31 PM EDT CBC WITH DIFF STAT 06/18/2024 3:31 PM EDT XR CHEST AP PORTABLE DEISI 06/18/2024 3:27 PM EDT C-REACTIVE PROTEIN Routine 06/08/2024 10 :00 AM EDT Infection following a procedure, superficial incisional surgical site, subsequent encounter HEPATIC FUNCTION PANEL Routine 10:00 AM EDT Infection following a procedure, superficial incisional surgical site, subsequent encounter CREATININE Routine 06/08/2024 10:00 AM EDT Infection following a procedure, superficial incisional surgical site, subsequent encounter CBC WITH DIFF Routine 06/08/2024 10:00 AM EDT Infection following a procedure, superficial incisional surgical site, subsequent encounter BLOOD UREA NITROGEN Routine 06/08/2024 1 0:00 AM EDT Infection following a procedure, superficial incisional surgical site, subsequent encounter EXTRA GOLD SST Routine 06/02/2024 10:00 AM EDT 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, implants and grafts, subsequent encounter CREATININE Routine 06/02/2024 10:00 AM EDT 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, implants and grafts, subsequent encounter C-REACTIVE PROTEIN Routine 06/02/2024 10 :00 AM EDT 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, implants and grafts, subsequent encounter HEPATIC FUNCTION PANEL Routine 10:00 AM EDT 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, implants and grafts, subsequent encounter CBC WITH DIFF Routine 06/02/2024 10:00 AM EDT 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, implants and grafts, subsequent encounter BLOOD UREA NITROGEN Routine 06/02/2024 1 0:00 AM EDT 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, implants and grafts, subsequent encounter HEMOGLOBIN A1C Routine 04/28/2024 11:37 AM EDT Dry skin Paresthesias Type 2 diabetes mellitus with hyperglycemia, without long-term current use of insulin (HCC) LIPID SCREEN Routine 01/06/2024 11:42 AM EST Type 2 diabetes mellitus with hyperglycemia, without long-term current use of insulin (HCC) MICROALBUMIN/CREATININ E RATIO URINE Routine 06/26/2023 2:30 PM EDT Type 2 diabetes mellitus with hyperglycemia, without long-term current use of insulin (HCC) HM DIABETES EYE EXAM Routine 11/19/2017 [facility] COLONOSCOPY Routine 06/16/2015 10:1 5 AM EDT HEPATITIS C ANTIBODY IGM + IGG Routine 01/24/2011 10:10 AM EST Arthritis from Last 3 Months or Most Recently Relevant to Health Maintenance Results * (ABNORMAL) GLUCOSE METER POC (07/26/2024 11:20 AM EDT) Only the most recent of21 resultswithin the time period is included. [facility] Glucose Meter POC 146(H) 70 - 100 mg/dL 07/26/2024 11:21 AM EDT [facility] Sample Type Capillary 07/26/2024 11:21 AM EDT [facility] Patient Status Non-Critical Patient 07/26/2024 11:21 AM EDT [facility] Blood BLOOD SPECIMEN / Unknown 07/26/2024 11:20 AM EDT 07/26/2024 11:21 AM EDT us Anil Thompson DO POINT OF CARE TEST ORDERABLE S Final Result Performing Organization Address City/[facility]/ZIP Co de Phone Number [facility] [address] [place] [address] * ECG AND WAVEFORMS - TELEMETRY (07/26/2024 7:58 AM EDT) Only the most recent of8 resultswithin the time period is included. Pathologist [facility] ECG INTERPRET Sinus with IVCD [facility] 07/26/2024 7:58 AM EDT Narrative [facility] - 07/26/2024 8:03 AM EDT EH - ROUTINE DC 0.20 QRS 0.11 RR 0.88 QT 0.37 QTc 0.39 See Clinical Report link for waveform capture us Unknown Provider POINT OF CARE CARDIOLOGY Final Result Performing Organization Address [facility] Co de Phone Number [facility] [address] [place] [address] * (ABNORMAL) CBC WITH DIFF (07/26/2024 6:09 AM EDT) Only the most recent of8 resultswithin the time period is included. [facility] WBC 11.0(H) 3.7 - 10.3 x10(3)/mcL 07/26/2024 [...] 07/26/2024 7:44 AM EDT [facility] RDW 15.7(H) <=14.9 % 07/26/2024 7:44 AM EDT [facility] Platelet 297 155 - 369 x10(3)/mcL 07/26/2024 7:44 AM EDT [facility] MPV 9.9 8.8 - 12.5 fL 07/26/2024 7:44 AM EDT [facility] Neut Percent 44.6 % 07/26/2024 7:44 AM EDT [facility] Comment:Neutrophils equals s egs plus bands Imm Gran% 0.7 % 07/26/2024 7:44 AM EDT [facility] Comment:Automated count of m etamyelocytes, myelocytes and promyelocytes. Lymph Percent 44.0 % 07/26/2024 7:44 AM EDT [facility] [place]omew Percent 6.1 % 07/26/2024 7:44 AM EDT [facility] Eos Percent 4.2 % 07/26/2024 7:44 AM EDT [facility] Baso Percent 0.4 % 07/26/2024 7:44 AM EDT [facility] Neut # 4.9 1.6 - 6.1 x10(3)/mcL 07/26/2024 7:44 AM EDT [facility] Comment:Neutrophils equals s egs plus bands IMMGRAN# 0.1 0.0 - 0.1 x10(3)/mcL 07/26/2024 7:44 AM EDT [facility] Comment:Automated count of m etamyelocytes, myelocytes and promyelocytes. An absolute IG <0.1 is reported as 0.0. Lymph # 4.9(H) 1.2 - 3.9 x10(3)/mcL 07/26/2024 7:44 AM EDT [facility] Bartholomew # 0.7 0.3 - 0.9 x10(3)/mcL 07/26/2024 7:44 AM EDT [facility] Eos# 0.5 0.0 - 0.5 x10(3)/mcL 07/26/2024 7:44 AM EDT [facility] Baso # 0.0 0.0 - 0.1 x10(3)/mcL 07/26/2024 7:44 AM EDT [facility] Blood VENOUS BLOOD / Unknown Venipuncture / Unknown 07/26/2024 6:09 AM EDT 07/26/2024 7:29 AM EDT us Anil Thompson DO HEMATOLOGY ORDERABLES Final Result [facility] [address] [facility] , [place] [address] * EC ECHOCARDIOGRAM LIMITED (07/25/2024 2:20 PM EDT) LV DIASTOLIC PLAX 5.2 cm PYRAMIS Ejection [...] ECHO ORDERABLES Final Re sult * (ABNORMAL) BASIC METABOLIC PANEL (07/25/2024 6:23 AM EDT) Only the most recent of4 resultswithin the time period is included. Sodium 141 136 - 145 mmol/L 07/25/2024 8:18 AM EDT [facility] Potassium 4.3 3.5 - 5.0 mmol/L 07/25/2024 8:18 AM EDT [facility] Chloride 108(H) 98 - 107 mmol/L 07/25/2024 8:18 AM EDT [facility] Total CO2 23 22 - 29 mmol/L 07/25/2024 8:18 AM EDT [facility] Anion Gap 10 7 - 16 mmol/L 07/25/2024 8:18 AM EDT [facility] Calcium 8.8 8.8 - 10.4 mg/dL 07/25/2024 8:18 AM EDT [facility] Glucose Lvl 103(H) 70 - 99 mg/dL 07/25/2024 8:18 AM EDT [facility] BUN 13 8 - 23 mg/dL 07/25/2024 8:18 AM EDT [facility] Creatinine 1.40(H) 0.67 - 1.30 mg/dL 07/25/2024 8:18 AM EDT [facility] eGFR (CKD-EPIcr 2020) 55(L) >=60 mL/min/1.7 3 m2 07/25/2024 8:18 AM EDT [facility] Comment:Estimated GFR was ca lculated using the CKD-EPIcr (2020) equation refit without race. The equation is recommended by the [employer] - [place] [employer] Neph[employer] Task Force. Blood VENOUS BLOOD / Unknown Venipuncture / Unknown 07/25/2024 6:23 AM EDT 07/25/2024 7:43 AM EDT us Anil Thompson DO CHEMISTRY ORDERABLES Final R esult [facility] [address] [facility] , [address] [place] [id number] * BLOOD CULTURE (NO STAIN) (07/23/2024 8:10 AM EDT) Only the most recent of4 resultswithin the time period is included. Culture Result No Growth at 120 hours. BLOOD CULTURE (NO STAIN) 07/28/2024 9:00 AM EDT [facility] Blood VENOUS BLOOD / Unknown Venipuncture / Unknown 07/23/2024 8:10 AM EDT 07/23/2024 8:20 AM EDT Chapo Calvin MD MICROBIOLOGY - GENERAL ORDER ARJUN Final Result Performing Organization Address City/[facility]/ZIP Co de Phone Number [facility]ulate [address] , [address] [place], [place] [phone] * (ABNORMAL) SEDIMENTATION RATE AUTOMATED (07/23/2024 8:10 AM EDT) Only the most recent of2 resultswithin the time period is included. Sed Rate 39(H) 0 - 20 mm/hr 07/23/2024 9:28 AM EDT [facility] Blood VENOUS BLOOD / Unknown Venipuncture / Unknown 07/23/2024 8:10 AM EDT 07/23/2024 8:21 AM EDT Chapo Calvin MD HEMATOLOGY ORDERABLES Final Result Performing Organization Address City/[facility] Co de Phone Number [facility] [address] , [place] [address] * (ABNORMAL) C-REACTIVE PROTEIN (07/23/2024 8:10 AM EDT) Only the most recent of5 resultswithin the time period is included. CRP 94.55(H) <=5.00 mg/L 07/23/2024 12:34 PM EDT [facility] Blood VENOUS BLOOD / Unknown Venipuncture / Unknown 07/23/2024 8:10 AM EDT 07/23/2024 8:21 AM EDT us Chapo Calvin MD CHEMISTRY ORDERABLES Final R esult Performing Organization Address City/[facility]/ZIP Co de Phone Number [facility], [address] , [address] [place] [phone] * (ABNORMAL) CREATINE KINASE (07/23/2024 8:10 AM EDT) CK 13(L) 39 - 308 U/L 07/23/2024 12:34 PM EDT [facility] Blood VENOUS BLOOD / Unknown Venipuncture / Unknown 07/23/2024 8:10 AM EDT 07/23/2024 8:21 AM EDT Chapo Calvin MD CHEMISTRY ORDERABLES Final R esult Performing Organization Address [facility] Co de Phone Number [facility], [facility] 1 [facility] , [place] [address] * (ABNORMAL) COMPREHENSIVE METABOLIC PANEL (07/23/2024 8:10 AM EDT) Only the most recent of2 resultswithin the time period is included. Sodium 138 136 - 145 mmol/L 07/23/2024 [...] mg/dL 07/23/2024 9:14 AM EDT [facility] Albumin 3.1(L) 3.2 - 4.6 gm/dL 07/23/2024 9:14 AM EDT [facility] Total Protein 5.7(L) 6.4 - 8.3 gm/dL 07/23/2024 9:14 AM EDT [facility] Bili Total 0.2 0.2 - 1.4 mg/dL 07/23/2024 9:14 AM EDT [facility] ALT 6 <=41 U/L 07/23/2024 9:14 AM EDT [facility] AST 10 <=40 U/L 07/23/2024 9:14 AM EDT [facility], [facility] Alk Phos 82 40 - 129 U/L 07/23/2024 9:14 AM EDT [facility] eGFR (CKD-EPIcr 2020) 45(L) >=60 mL/min/1.7 3 m2 07/23/2024 9:14 AM EDT [facility] Comment:Estimated GFR was ca lculated using the CKD-EPIcr (2020) equation refit without race. The equation is recommended by the National Kidney Foundation - [place] [employer] of Nephrology Task Force. Blood VENOUS BLOOD / Unknown Venipuncture / Unknown 07/23/2024 8:10 AM EDT 07/23/2024 8:21 AM EDT Chapo Calvin MD CHEMISTRY ORDERABLES Final R esult [facility] 1 [facility] , [place] [address] * (ABNORMAL) C DIFF INTERPRETATION (07/22/2024 12:04 PM EDT) C Diff Toxin DNA Positive(A) Negative 07/22/2024 1:41 PM EDT [facility] NAP1 Presumptive Neg Presumptive Neg 07/22/2024 1:41 PM EDT [facility] GDH Antigen Positive(A) Negative 07/22/2024 1:41 PM EDT [facility] C diff toxin A/B Positive(A) Negative 07/22/2024 1:41 PM EDT [facility] Stool RECTUM STRUCTURE / Unknown 07/22/2024 12:04 PM EDT 07/22/2024 12:11 PM EDT Narrative [facility] - 07/22/2024 1:41 PM EDT Toxin producing C diff target DNA sequences detected. Toxins A/B positive. CDI likely. Consider initiation of severity-based CDI therapy according to CDI management guidance. Anil Thompson DO MICROBIOLOGY - GENERAL ORDER ARJUN Final Result Performing Organization Address [facility] Co de Phone Number [address] , [address] [place] [phone] * C DIFF GDH AG AND TOXIN A+B (07/22/2024 12:04 PM EDT) Stool RECTUM STRUCTURE / Unknown 07/22/2024 12:04 PM EDT 07/22/2024 12:11 PM EDT Anil Thompson DO MICROBIOLOGY - GENERAL ORDER ARJUN Final Result Performing Organization Address [facility] Phone Number [address] , [address] [place] [phone] * C DIFF TOXIN DNA (07/22/2024 12:04 PM EDT) Stool RECTUM STRUCTURE / Unknown 07/22/2024 12:04 PM EDT 07/22/2024 12:11 PM EDT Anil Thompson DO MICROBIOLOGY - GENERAL ORDER ARJUN Final Result Performing Organization Address [facility] Co de Phone Number [address] , [address] [place] [phone] * SHIGA TOXIN (07/22/2024 12:04 PM EDT) Shiga Toxin Shiga toxins (produced by E. coli) not detected. Shiga toxins (produced by E. coli) not detected. 07/23/2024 5:08 PM EDT [facility] Stool RECTUM STRUCTURE / Unknown 07/22/2024 12:04 PM EDT 07/22/2024 9:23 PM EDT Anil Thompson DO MICROBIOLOGY - GENERAL ORDER ARJUN Final Result Performing Organization Address [facility] Co de Phone Number [facility] , [address] [place] [phone] * STOOL CULTURE (NO STAIN) (07/22/2024 12:04 PM EDT) Pathologist [facility] [place] Culture No growth of enteric pathogens, including Salmonella, Shigella, Campylobacter, Vibrio, Yersinia, Aeromonas, Plesiomonas, or E. coli O157. 07/24/2024 7:50 AM EDT [facility], [facility] Stool RECTUM STRUCTURE / Unknown 07/22/2024 12:04 PM EDT 07/22/2024 12:11 PM EDT us Anil Thompson DO MICROBIOLOGY - GENERAL ORDER ARJUN Final Result Performing Organization Address [facility] Phone Number [facility] , [place] [address] * OVA AND PARASITE BASIC (07/22/2024 12:04 PM EDT) Giardia Lamblia Antigen Not Detected Not detected 07/22/2024 6:39 PM EDT [facility], [facility] Cryptosporidium Exam Not Detected Not Detected 07/22/2024 6:39 PM EDT [facility] Stool RECTUM STRUCTURE / Unknown 07/22/2024 12:04 PM EDT 07/22/2024 12:11 PM EDT Anil Thompson DO MICROBIOLOGY - GENERAL ORDER ARJUN Final Result Performing Organization Address City/[facility] Co de Phone Number [facility], [address] , [place] [address] * US RENAL AND BLADDER (07/22/2024 10:53 [...] evaluation of the kidneys and bladder with access services representative images and asian art curator notes sent to PACS for radiologist review. [...] sonographic evaluation of the kidneys andbladder with access services representative images and asian art curator notes sent to PACS forradiologist review. FINDINGS: [...] US ORDERABLES Final Resu lt * (ABNORMAL) CBC (07/22/2024 4:45 AM EDT) [facility] WBC 20.0(H) 3.7 - 10.3 x10(3)/mcL 07/22/2024 [...] 6:40 AM EDT [facility] Blood VENOUS BLOOD / Unknown Venipuncture / Unknown 07/22/2024 4:45 AM EDT 07/22/2024 5:07 AM EDT us Nury Mcdermott APRN HEMATOLOGY ORDERABLES Final R esult [facility] 1 [facility] , [place] [address] * VANCOMYCIN LEVEL (07/22/2024 4:45 AM EDT) Vanco Random 14.6 mcg/mL 07/22/2024 5:44 AM EDT [facility] Blood VENOUS BLOOD / Unknown Venipuncture / Unknown 07/22/2024 4:45 AM EDT 07/22/2024 5:07 AM EDT Cat Jules MD CHEMISTRY ORDERABLES Final Result Performing Organization Address City/[facility]/ZIP Co de Phone Number [facility] 1 [facility] , [place] [address] * (ABNORMAL) URINALYSIS REFLEX (07/21/2024 6:04 PM [...] 07/21/2024 6:17 PM EDT [facility] UA Leuk Est 2+ (75 Zora/mcl)(A) Negative 07/21/2024 6:17 PM EDT [facility] UA Spec Grav 1.029 1.001 - 1.035 no units 07/21/2024 6:17 PM EDT [facility] Comment:Reference range leyla d for random specimens only. UA WBC 13(H) 0 - 4 /HPF 07/21/2024 6:17 PM EDT [facility] UA RBC 2 0 - 3 /HPF 07/21/2024 6:17 PM EDT [facility] UA Squam Epi 2+ /LPF 07/21/2024 6:17 PM EDT [facility] UA Mucus Trace /LPF 07/21/2024 6:17 PM EDT [facility] UA Bacteria Trace(A) Negative /HPF 07/21/2024 6:17 PM EDT [facility] Urine STRUCTURE OF URINARY TRACT PROPER / Unknown 07/21/2024 6:04 PM EDT 07/21/2024 6:09 PM EDT Cat Jules MD URINE ORDERABLES Final Res ult Performing Organization Address [facility]/ZIP Co de Phone Number [facility], [address], [place] [address] * EXTRA BE URINE CX (07/21/2024 6:04 PM EDT) Urine STRUCTURE OF URINARY TRACT PROPER / Unknown 07/21/2024 6:04 PM EDT 07/21/2024 6:09 PM EDT Cat Jules MD MICROBIOLOGY - GENERAL ORD ERABLES Final Result Performing Organization Address [facility]/ZIP Co de Phone Number [address] [address] * URINE CULTURE (NO STAIN) (07/21/2024 6:04 PM EDT) Culture Multiple bacterial species isolated from urine consistent with urogenital commensal organisms. 07/23/2024 3:11 AM EDT [facility] Urine STRUCTURE OF URINARY TRACT PROPER / Unknown 07/21/2024 6:04 PM EDT 07/21/2024 6:17 PM EDT us Cat Jules MD MICROBIOLOGY - GENERAL ORD ERABLES Final Result Performing Organization Address [facility]/ZIP Co de Phone Number [facility] 1 [facility] , [place] [address] * (ABNORMAL) PROCALCITONIN (07/21/2024 5:42 PM EDT) Procalcitonin 0.50(H) <=0.49 ng/mL 07/21/2024 6:35 PM EDT [facility] Blood VENOUS BLOOD / Unknown Venipuncture / Unknown 07/21/2024 5:42 PM EDT 07/21/2024 5:51 PM EDT Narrative [facility] - 07/21/2024 6:35 PM EDT Procalcitonin <0.50 [...] progression to severe sepsis and/or septic shock. us Cat Jules MD CHEMISTRY ORDERABLES Final Result Performing Organization Address [facility]/ZIP Co de Phone Number [facility] 1 [facility] [address], [place] [address] * LACTIC ACID (07/21/2024 5:42 PM EDT) Lactic Acid 1.2 0.5 - 1.9 mmol/L 07/21/2024 5:59 PM EDT [facility] Blood VENOUS BLOOD / Unknown Venipuncture / Unknown 07/21/2024 5:42 PM EDT 07/21/2024 5:45 PM EDT us Cat Jules MD CHEMISTRY ORDERABLES Final Result [facility] [address] [place] [address] * XR CHEST AP PORTABLE (07/21/2024 5:33 PM EDT) Only the most recent of2 resultswithin the time period is included. Anatomical Region Laterality Modality Chest Radiographic Adenike [...] IMAGING ORD ERABLES Final Result * CT ABDOMEN PELVIS WO ORAL OR [...] CT ORDERABLES Final Re sult * CT LOWER EXTREMITY RIGHT WO CONTRAST [...] ORD ERABLES Final Result [facility] 1 [facility] , [place] [address] * (ABNORMAL) COMPLIANCE OPIOID PANEL QUANT ONLY, URINE (06/22/2024 12:16 PM EDT) [facility] Medications Expected Oxycodone 06/23/2024 5:38 PM EDT [facility] Hydrocodone <50 Cutoff 50 ng/mL ng/mL 06/23/2024 5:38 PM EDT [facility] Comment:e.g., Lorcet, Lortab , Vicodin, [place]; Minor Metabolite of Codeine Dihydrocodeine <50 Cutoff 50 ng/mL ng/mL 06/23/2024 5:38 PM EDT [facility] Comment:e.g., Didrate, Parzo ne, Parlor, Synalgos; Metabolite of Hydrocodone Norhydrocodone <50 Cutoff 50 ng/mL ng/mL 06/23/2024 5:38 PM EDT [facility] Comment:Metabolite of Hydroc odone Hydromorphone <50 Cutoff 50 ng/mL ng/mL 06/23/2024 5:38 PM EDT [facility] Comment:e.g., Dilaudid; also Metabolite of Hydrocodone and Minor Metabolite of Morphine Hydromorphone Glucuronide <50 Cutoff 50 ng/mL ng/mL 06/23/2024 5:38 PM EDT [facility] Comment:Metabolite of Hydrom orphone Oxycodone 1,269(H) Cutoff 50 ng/mL ng/mL 06/23/2024 5:38 PM EDT [facility] Comment:e.g., Oxycontin, Per cocet, Endocet, Percodan, Roxicet Noroxycodone 1,237(H) Cutoff 50 ng/mL ng/mL 06/23/2024 5:38 PM EDT [facility] Comment:Metabolite of Oxycod one Oxymorphone <50 Cutoff 50 ng/mL ng/mL 06/23/2024 5:38 PM EDT [facility] Comment:e.g., Opana; Metabol ite of Oxycodone Oxymorphone Glucuronide >2,000(H) Cutoff 50 ng/mL ng/mL 06/23/2024 5:38 PM EDT [facility] Comment:Metabolite of Oxycod one Noroxymorphone >2,000(H) Cutoff 50 ng/mL ng/mL 06/23/2024 5:38 PM EDT [facility] Comment:Metabolite of Oxycod one, and Oxymorphone, Noroxycodone Metabolite Tramadol <50 Cutoff 50 ng/mL ng/mL 06/23/2024 5:38 PM EDT [facility] Comment:e.g., Ultram, ConZip W-Szjzipjoi-ugo-Tra madol <50 Cutoff 50 ng/mL ng/mL 06/23/2024 5:38 PM EDT [facility] Comment:Metabolite of Tramad ol Codeine <50 Cutoff 50 ng/mL ng/mL 06/23/2024 5:38 PM EDT [facility] Comment:e.g., Acetaminophen w/Codeine, Tylenol3 w/ Codeine Codeine Glucuronide <50 Cutoff 50 ng/mL ng/mL 06/23/2024 5:38 PM EDT [facility] Comment:Metabolite of Codein e Meperidine <50 Cutoff 50 ng/mL ng/mL 06/23/2024 5:38 PM EDT [facility] Comment:e.g., Demerol, Pethi dine Normeperidine <50 Cutoff 50 ng/mL ng/mL 06/23/2024 5:38 PM EDT [facility] Comment:Metabolite of Meperi dine Morphine <50 Cutoff 50 ng/mL ng/mL 06/23/2024 5:38 PM EDT [facility] Comment:e.g., MS Contin, Jessica anol; Metabolite of Codeine and Heroin; may reflect poppy seed ingestion Jieiycjt-4-Ahvgbvjr elio <25 Cutoff 25 ng/mL ng/mL 06/23/2024 5:38 PM EDT [facility] Comment:Metabolite of Morphi ne. Ydlddrow-1-Khmlgztf elio <25 Cutoff 25 ng/mL ng/mL 06/23/2024 5:38 PM EDT [facility] Comment:Metabolite of Morphi ne. Naloxone <25 Cutoff 25 ng/mL ng/mL 06/23/2024 5:38 PM EDT [facility] Comment:e.g., Narcan, Evzio Buprenorphine <5 Cutoff 5 ng/mL ng/mL 06/23/2024 5:38 PM EDT [facility] Comment:e.g., Suboxone, Subu sindhu,Sublocade, Buprenex Buprenorphine Glucuronide <10 Cutoff 10 ng/mL ng/mL 06/23/2024 5:38 PM EDT [facility] Comment:Buprenorphine Metabo lite Norbuprenorphine <5 Cutoff 5 ng/mL ng/mL 06/23/2024 5:38 PM EDT [facility] Comment:Buprenorphine Metabo lite Norbuprenorphine Glucuronide <10 Cutoff 10 ng/mL ng/mL 06/23/2024 5:38 PM EDT [facility] Comment:Buprenorphine Metabo lite Fentanyl <1 Cutoff 1 ng/mL ng/mL 06/23/2024 5:38 PM EDT [facility] Comment:e.g.,Duragesic, Oral et, Actiq, Sublimaze, Innovar, Lazanda Norfentanyl <1 Cutoff 1 ng/mL ng/mL 06/23/2024 5:38 PM EDT [facility] Comment:Metabolite of Fentan yl 6-Monoacetylmorphin e (6MAM) <10 Cutoff 10 ng/mL ng/mL 06/23/2024 5:38 PM EDT [facility] Comment:Metabolite of Heroin ; Morphine is expected Methadone <50 Cutoff 50 ng/mL ng/mL 06/23/2024 5:38 PM EDT [facility] Comment:e.g., Dolophine, Met hadose, Amidone EDDP <50 Cutoff 50 ng/mL ng/mL 06/23/2024 5:38 PM EDT [facility] Comment:Methadone Metabolite Tapentadol <50 Cutoff 50 ng/mL ng/mL 06/23/2024 5:38 PM EDT [facility] Comment:Nucynta Tapentadol-Glucuron elio <50 Cutoff 50 ng/mL ng/mL 06/23/2024 5:38 PM EDT [facility] Comment:Metabolite of Tapent adol Urine Creatinine 121.0 mg/dL 06/24/19 25 5:38 PM EDT [facility] Comment: Greater than 20: Consistent with valid sample Greater than 2 but less than 20: Possible dilution Less than 2: Questionable valid sample Urine STRUCTURE OF URINARY TRACT PROPER / Unknown 06/22/2024 12:16 PM EDT 06/22/2024 12:16 PM EDT Narrative [facility] - 06/23/2024 5:38 PM EDT The absence of expected drug(s), and/or drug metabolite(s), may indicate non-compliance, diluted or adulterated urine, poor drug absorption, concentration of drug below the cut-off, timing of specimen collection relative to administration of drug, or limitations of testing. Specimens are held for 7 days. This test was developed, and its performance characteristics determined by [facility] ([facility]). It has not been cleared or approved by the FDA. This test is used for clinical purposes. It should not be regarded as investigational or for research. [facility] is certified under the Clinical Laboratory Improvement Amendments (CLIA) as qualified to perform high complexity clinical laboratory testing. us Viridiana Oropeza MD URINE ORDERABLES Final Result Performing Organization Address [facility] Co de Phone Number [facility] 1 [facility], [address] [place] [phone] [facility] [address] [place] [id number] * NT PROBNP (06/18/2024 3:31 PM EDT) NT Pro-BNP 176 <=229 pg/mL 06/18/2024 4:30 PM EDT [facility] Blood VENOUS BLOOD / Unknown Venipuncture / Unknown 06/18/2024 3:31 PM EDT 06/18/2024 3:35 PM EDT Narrative [facility] - 06/18/2024 4:30 PM EDT An NT pro-BNP level less than 300 pg/mL in any patient, regardless of age, effectively rules out acute CHF with a 99% negative predictive value. Ingestion of yoselyn doses of biotin (>5 mg/day) taken within 8 hours of drawing blood sample can interfere with this immunoassay test. us Adenike Edmond APRN CHEMISTRY ORDERABLES Fi nal Result Performing Organization Address [facility] Co de Phone Number [place] [phone] * (ABNORMAL) BLOOD UREA NITROGEN (06/08/2024 10:00 AM EDT) Only the most recent of2 resultswithin the time period is included. BUN 5(L) 8 - 23 mg/dL 06/08/2024 8:47 PM EDT [facility] Blood VENOUS BLOOD / Unknown 06/08/2024 10:00 AM EDT 06/08/2024 4:41 PM EDT Wilfredo Forte MD CHEMISTRY ORDERABLES Final Re sult Performing Organization Address [facility] de Phone Number [facility] [address] , [place] [address] * CREATININE (06/08/2024 10:00 AM EDT) Only the most recent of2 resultswithin the time period is included. Pathologist [facility] [place] Creatinine 1.06 0.67 - 1.30 mg/dL 06/08/2024 8:47 PM EDT [facility] eGFR (CKD-EPIcr 2020) 77 >=60 mL/min/1.7 3 m2 06/08/2024 8:47 PM EDT [facility] Comment:Estimated GFR was ca lculated using the CKD-EPIcr (2020) equation refit without race. The equation is recommended by the National Kidney Foundation - [place] [employer] of Nephrology Task Force. Blood VENOUS BLOOD / Unknown 06/08/2024 10:00 AM EDT 06/08/2024 4:41 PM EDT Wilfredo Forte MD CHEMISTRY ORDERABLES Final Re sult Performing Organization Address [facility] de Phone Number [facility] , [place] [address] * (ABNORMAL) HEPATIC FUNCTION PANEL (06/08/2024 10:00 AM EDT) Only the most recent of2 resultswithin the time period is included. Total Protein 6.0(L) 6.4 - 8.3 gm/dL 06/08/2024 8:47 PM EDT [facility] Albumin 3.7 3.2 - 4.6 gm/dL 06/08/2024 8:47 PM EDT [facility] Direct <0.2 0.0 - 0.3 mg/dL 06/08/2024 8:47 PM EDT [facility] Bili Total 0.2 0.2 - 1.4 mg/dL 06/08/2024 8:47 PM EDT [facility] AST 9 <=40 U/L 06/08/2024 8:47 PM EDT [facility] ALT 5 <=41 U/L 06/08/2024 8:47 PM EDT [facility] Alk Phos 80 40 - 129 U/L 06/08/2024 8:47 PM EDT [facility] Blood VENOUS BLOOD / Unknown 06/08/2024 10:00 AM EDT 06/08/2024 4:41 PM EDT us Wilfredo Forte MD CHEMISTRY ORDERABLES Final Re sult Performing Organization Address City/[facility]/ZIP Co de Phone Number [facility], [address], [place] [address] * EXTRA GOLD SST (06/02/2024 10:00 AM EDT) Blood VENOUS BLOOD / Unknown 06/02/2024 10:00 AM EDT 06/02/2024 2:43 PM EDT Wilfredo Forte MD CHEMISTRY ORDERABLES Final Re sult Performing Organization Address [facility]/ZIP Co de Phone Number [facility] [address] [place] [address] * (ABNORMAL) HEMOGLOBIN A1C (04/28/2024 11:37 AM EDT) Hgb A1C 6.4(H) 4.2 - 5.6 % 04/28/2024 10:06 PM EDT [facility] [place], [facility] Est. Avg Glucose 137 mg/dL 04/28/2024 10:06 PM EDT [facility] Blood VENOUS BLOOD / Unknown Venipuncture / Unknown 04/28/2024 11:37 AM EDT 04/28/2024 11:37 AM EDT Narrative PREFERRED tabulate [facility] - 04/28/2024 10:06 PM EDT REFERENCE RANGE: Normal: 4.0-5.6% Pre-diabetes: 5.7-6.4% Provisional diagnosis of diabetes: >6.4% Hgb F>10% and anything which shortens red cell survival, such as hemolytic anemia, or unstable hemoglobin variants such as HbSS, HbSC, or HbCC, will lower the HbA1c value associated with a given level of glycemic control. us Lucia Dunlap PA-C CHEMISTRY ORDERABLES Final Resu lt PREFERRED [employer] [address] [facility] , [address] [place] [address] [facility] [address] [place] [address] * (ABNORMAL) LIPID SCREEN (01/06/2024 11:42 AM EST) Cholesterol 141 <200 mg/dL 01/06/2024 4:22 PM EST [facility] Comment: < 200 Desirable 200 - 239 Borderline High >= 240 High Triglyceride 179(H) <150 mg/dL 01/06/2024 4:22 PM EST [facility] Comment: < 150 Normal 150 - 199 Borderline High 200 - 499 High >= 500 Very High HDL 34(L) >=40 mg/dL 01/06/2024 4:22 PM EST [facility] Comment: > 60 Optimal 40 - 60 Acceptable < 40 Low LDL Calculated 76 <100 mg/dL 01/06/2024 4:22 PM EST [facility] Comment: < 100 Optimal 100 - 129 Near or above optimal 130 - 159 Borderline High 160 - 189 High >= 190 Very High Non-HDL-C Calculated 107 <=129 mg/dL 01/06/2024 4:22 PM EST [facility] Comment: <130 Desirable 130-159 Above Desirable 160-189 Borderline High 190-219 High >= 220 Very High Fasting Specimen? Yes None 4:22 PM EST [facility] Blood VENOUS BLOOD / Unknown Venipuncture / Unknown 01/06/2024 11:42 AM EST 01/06/2024 11:42 AM EST us Viridiana Oropeza MD CHEMISTRY ORDERABLES Final Resu lt Performing Organization Address [facility] Co de Phone Number [facility] [place], [address] , [place] [address] [facility] [address] [place] [address] * MICROALBUMIN/CREATININE RATIO URINE (06/26/2023 2:30 PM EDT) Urine Microalb 27.3 mg/L 06/26/2023 10:34 PM EDT [facility] [place], [facility] Urine Creatinine 189.4 mg/dL 06/26/2023 10:34 PM EDT [facility] [place] Ur Microalb/Creat 14 0 - 30 mg/g 06/26/2023 10:34 PM EDT [facility] [place], [facility] Urine URINE SPECIMEN COLLECTION / Unknown 06/26/2023 2:30 PM EDT 06/26/2023 2:30 PM EDT us Viridiana Oropeza MD URINE ORDERABLES Final Result Performing Organization Address [facility] Co de Phone Number [facility] [employer], [employer] [address] [place] [address] , [place] [address] * DIABETES EYE EXAM (11/19/2017) Left Diabetic Retinopathy Not Present Present/Not Present SEP OFFICE Right Diabetic Retinopathy Not Present Present/Not Present SEP OFFICE us Viridiana Oropeza MD HEALTH MAINTENANCE Final Result Performing Organization Address City/[facility]/ZIP Co de Phone Number SEP OFFICE * GMED COLONOSCOPY (06/16/2015 10:15 AM EDT) 06/16/2015 10:1 5 AM EDT Impressions [facility] - 06/16/2015 11:43 AM EDT Grade 1 internal hemorrhoids. Normal mucosa in the whole colon. Plan: Screening Colonoscopy in 10 years. This section is an excerpt of the full report. us Pankaj Chavez MD GI PROCEDURE ORDERABLES Jaimee l Result Performing Organization Address City/[facility]/ZIP Co de Phone Number [facility] [address] [place] [address] * HEPATITIS C ANTIBODY IGM + IGG (01/24/2011 10:10 AM EST) Hep C Ab Negative Negative [facility] Blood specimen (specimen) VENOUS STRUCTURE / Unknown 01/24/2011 10:10 AM EST 01/24/2011 10:21 AM EST Nereida Valle MD IMMUNOLOGY ORDERABLES Fin al Result Performing Organization Address [facility] de Phone Number [facility] [address] [place] [address] from Last 3 Months or Most Recently Relevant to Health Maintenance Additional Health Concerns Infection Onset Date Last Indicated C-diff 07/22/2024 07/22/2024 Insurance [facility] [id number] [facility] MEDICARE PART B [id number] [id number] [place] [address] MEDICARE PART B [address] [place] [address] [place] [id number] [place] [id number] [employer] MEDICARE PART B MEDIC[place] PART [place] [id number] MDR MEDICARE PART B [address] [place] [address] [facility] [id number] [facility] Advance Directives For more information, please contact: [phone] * Full Code (Latest Code Status on File) Date Activated Date Inactivated Comments 07/21/2024 8:09 PM 07/26/2024 8:11 PM * Full Code Date Activated Date Inactivated Comments 08/28/2023 10:07 PM 09/03/2023 5:46 PM Care Teams Vigoureux Printer Relationship Specialty Start Date End Date Viridiana Oropeza MD [address] [place] [address] PCP - General 01/19/09 Pankaj Navarro MD [address] [place] [address] Physician Otolaryngology 09/18/23
--- OUTSIDE RECORDS SUMMARY | 2024-08-18 07:59 | XMS_ITS | Encounter Summary ---
Author Organization [place] [address] Care Team Providers Care End Touching Machine Operator Name Role Phone Viridiana Oropeza MD Primary Care Provider [phone] Pankaj Navarro MD Unavailable [phone] Reason for Visit * Reason Onset Date Comments Refill 06/05/2024 Oxycodone refill request Encounter Details Date Type Department Care Team (Late st Contact Info) Description 06/05/2024 Telephone [facility] [address] [place] [address] Viridiana Oropeza MD [address] [place] [address] Refill (Oxycodone refill request) Social History Tobacco Use Types Packs/Day Years Used Date Smoking Tobacco: Never Passive Smoke Exposure: Never Smokeless Tobacco: Never Alcohol Use Standard Drinks/Week Comments No 0 (1 standard drink = 0.6 oz pur e alcohol) [facility] Utilities Answer Date Recorded In the past 12 months has [employer], gas, oil, or water [employer] threatened to shut off services in your home? No 07/22/2024 Overall Financial Resource Strain (CARDIA) Answe r Date Recorded How hard is it for you to pa y for the very basics like food, housing, medical care, and heating? Not hard at all 07/22/2024 PHQ-2 Answer Date Recorded PHQ-2 Total Score 0 07/22/2024 [facility] [place] of Occupat ional Health - Occupational Stress [...] things needed for daily living? No 01/21/2020 [facility] IP Transportation Answer D ate Recorded In [...] 03/23/2024 10:00 AM Tiffany Mccullough CCMA * Suicide Severity Rating Answer Date of Assessment Author No Risk 06/27/2024 11:03 AM EDT Fidencio Rodriguez RN * Straughn Suicide Severity Rating Scale (Q shift for [...] your life? 0 06/27/2024 11:03 AM EDT All Adenike jones RN documented as of this encounter Mental Status * Because of a physical, mental or emotional condition, does this person have serious difficulty concentrating, remembering or making decisions? Answer Entry Date Author No 03/23/2024 10:00 AM Tiffany Mccullough CCMA documented in this encounter Miscellaneous Notes * Telephone Encounter - Mecca Tolentino RMA - 06/05/2024 11:42 AM EDT Pt advised the rx will be filled on Mon at his appt * Telephone Encounter - Alejandra Bass - 06/05/2024 11:35 AM EDT Select the most appropriate reason for this telephone message: Medication Refill Who is requesting the refill: Patient Medication(s)Name/Dosage/Frequency: xyCODONE-acetaminophen (PERCOCET) 10-325 mg Oral Tablet 90 Tablet 0 05/08/2024 -- Sig: TAKE 1 TABLET BY MOUTH EVERY 8 HOURS NEEDED FOR CHRONIC PAIN Did patient contact the pharmacy first: No How many days left on hand: 2 Future appt date w/ prescribing provider: 06/08/24 Pharmacy & Location: [facility] [place] [address] [facility] Method of Communication: Phone Call Additional Information: N/A documented in this encounter Plan of Treatment Upcoming Encounters Date Type Department Care Team (Late st Contact Info) Description 09/16/2024 12:15 PM EDT Office Visit [facility] [address] [place] [address] [place] [address] [place] [address] documented as of this encounter Goals [...] filedocumented in this encounter Additional Health Concerns Assessment Noted Time A fall risk assessment has been complete d for the patient 01/06/2024 10:53 AM EST documented as of this encounter Care Teams End Touching Machine Operator Relationship Specialty Start [place] [address] [place] [address] PCP - General 01/19/09 Pankaj Navarro MD [address] [place] [address] Physician Otolaryngology 09/18/23 documented as of this encounter
--- OUTSIDE RECORDS SUMMARY | 2024-08-18 07:59 | XMS_ITS | Encounter Summary ---
Author Organization [place] [address] Care Team Providers Care Primer Powder Blender Wet Name Role Phone Viridiana Oropeza MD Primary Care Provider Pankaj Navarro MD Unavailable [phone] Reason for Visit * Reason Onset Date Comments Refill 07/07/2024 Percocet refill request Encounter Details Date Type Department Care Team (Late st Contact Info) Description 07/07/2024 Telephone [facility] [address] [place] [address] Viridiana Oropeza MD [address] [place] [address] Refill (Percocet refill request) Social History Tobacco Use Types Packs/Day Years Used Date Smoking Tobacco: Never Passive Smoke Exposure: Never Smokeless Tobacco: Never Alcohol Use Standard Drinks/Week Comments No 0 (1 standard drink = 0.6 oz pur e alcohol) [facility] Utilities Answer Date Recorded In the past 12 months has [employer], gas, oil, or water [email or web address] threatened to shut off services in your home? No 08/29/2023 Overall Financial Resource Strain (CARDIA) Answe r Date Recorded How hard is it for you to pa y for the very basics like food, housing, medical care, and heating? Not hard at all 08/29/2023 PHQ-2 Answer Date Recorded PHQ-2 Total Score 0 03/23/2024 [facility] [place] of Occupat ional Health - Occupational Stress [...] things needed for daily living? No 01/21/2020 [facility] IP Transportation Answer D ate Recorded [...] HOURS NEEDED FOR CHRONIC PAIN 90 Tablet 07/07/2024 documented in this encounter Miscellaneous Notes * Telephone Encounter - Yvette Michele MA - 07/07/2024 1:38 PM EDT Attempted to notify patient, no answer, no voicemail * Telephone Encounter - Viridiana Oropeza MD - 07/07/2024 1:36 PM EDT Rx sent to pharmacy. * Telephone Encounter - Candie Richey RMA - 07/07/2024 9:54 AM EDT Pharmacy:[facility] [id number] [place] [address] [address] [phone] Controlled Contract Updated / Signed 08/17/2022- [facility] Informed Consent Updated / Signed 08/17/2022 UDS 06/22/2024 - as expected Omid as expected 06/22/2024 Care gap audit completed by Keerthi Wisdom RN on 09/24/2023. LAST RF 06/08/2024 LAST SEEN 06/22/2024 csv * Telephone Encounter - Alejandra Bass - 07/07/2024 9:26 AM EDT Select the most appropriate reason for this telephone message: Medication Refill Who is requesting the refill: Patient Medication(s)Name/Dosage/Frequency: Disp Refills Start End oxyCODONE-acetaminophen (PERCOCET) 10-325 mg Oral Tablet 90 Tablet 0 06/08/2024 -- Sig: TAKE 1 TABLET BY MOUTH EVERY 8 HOURS NEEDED FOR CHRONIC PAIN Did patient contact the pharmacy first: No How many days left on hand: 0 Future appt date w/ prescribing provider: 09/16/24 Pharmacy & Location: [facility] [address] [place] [address] [address] [place] [address] Method of Communication: N/A Additional Information: N/A documented in this encounter Plan of Treatment Upcoming Encounters Date Type Department Care Team (Late st Contact Info) Description 09/16/2024 12:15 PM EDT Office Visit [facility] [address] [place] [address] Viridiana Oropeza MD [address] [place] [address] documented as of this encounter Goals Goal Patient Goal Type Associated Problems Recent Progress Patient-Stated? Author Blood Pressure < 140/90 Blood Pressure 128/56(2024 9:08 AM EDT) No Julia Chicas, DAVID BMI (Calculated) < 30 General 41.9(07/22/19 9:49 PM EDT) No Julia Chicas, RN Maintain a healthy diet, exercise regularly and maintain an ideal body weight General No Kristi Balderrama CCMA HEMOGLOBIN A1C < 7.0 Result Component 6.4( 11:37 AM EDT) No Julia Chicas RN documented as of this encounter Visit Diagnoses Diagnosis Chronic pain syndrome documented in this encounter Discontinued Medications Medication Sig Discontinue Reason Start Date End Da te oxyCODONE-acetaminophen (PERCOCET) 10-325 mg Oral TabletIndications:Chroni c pain syndrome TAKE 1 TABLET BY MOUTH EVERY 8 HOURS NEEDED FOR CHRONIC PAIN Reorder 06/08/2024 07/07/2024 documented as of this encounter Additional Health Concerns Infection Onset Date Last Indicated Resolved Time R/O C-Diff 07/22/2024 07/22/2024 07/22/2024 1:25 PM EDT C-diff 07/22/2024 07/22/2024 Assessment Noted Time A fall risk assessment has been complete d for the patient 01/06/2024 10:53 AM EST documented as of this encounter Care Teams Primer Powder Blender Wet Relationship Specialty Start Date End Date Viridiana Oropeza MD [address] [place] [address] PCP - General 01/19/09 Pankaj Navarro MD [address] [place] [address] Physician Otolaryngology 09/18/23 documented as of this encounter
--- OUTSIDE RECORDS SUMMARY | 2024-08-18 07:59 | XMS_ITS | Encounter Summary ---
Author Organization [place] [address] Care Team Providers Care Nurse Emergency Room Name Role Phone Viridiana Oropeza MD Primary Care Provider Pankaj Navarro MD Unavailable [phone] Encounter Details Date Type Department Care Team (Late st Contact Info) Description 06/23/2024 Results Follow-Up [facility] [address] [place] [address] Lucia Dunlap PA-C [address] [place] [address] COMPLIANCE OPIOID PANEL QUANT ONLY, URINE Social History Tobacco Use Types Packs/Day Years Used Date Smoking Tobacco: Never Passive Smoke Exposure: Never Smokeless Tobacco: Never Alcohol Use Standard Drinks/Week Comments No 0 (1 standard drink = 0.6 oz pur e alcohol) [facility] Utilities Answer Date Recorded In the past 12 months has [employer], gas, oil, or water [employer] threatened to shut off services in your home? No 08/29/2023 Overall Financial Resource Strain (CARDIA) Answe r Date Recorded How hard is it for you to pa y for the very basics like food, housing, medical care, and heating? Not hard at all 08/29/2023 PHQ-2 Answer Date Recorded PHQ-2 Total Score 0 03/23/2024 [facility] [place] of Occupat ional Health - Occupational Stress [...] things needed for daily living? No 01/21/2020 [facility] IP Transportation Answer D ate Recorded [...] documented in this encounter Progress Notes * Lucia Dunlap PA-C - 06/23/2024 6:02 PM EDT As exp. Please document in snapshot and doc flowsheet. documented in this encounter Plan of Treatment Upcoming Encounters Date Type Department Care Team (Late st Contact Info) Description 09/16/2024 12:15 PM EDT Office Visit [facility] [address] [place] [address] Viridiana Oropeza MD [address] [place] [address] documented as of this encounter [...] Chicas, RN documented as of this encounter Visit Diagnoses Not on filedocumented in this encounter Additional Health Concerns Infection Onset Date Last Indicated Resolved Time R/O C-Diff 07/22/2024 07/22/2024 07/22/2024 1:25 PM EDT C-diff 07/22/2024 07/22/2024 Assessment Noted Time A fall risk assessment has been complete d for the patient 01/06/2024 10:53 AM EST documented as of this encounter Care Teams Nurse Emergency Room Relationship Specialty Start Date End Date Viridiana Oropeza MD [address] [place] [address] PCP - General 01/19/09 Pankaj Navarro MD [address] [place] [address] Physician Otolaryngology 09/18/23 documented as of this encounter
--- OUTSIDE RECORDS SUMMARY | 2024-08-18 07:59 | XMS_ITS | Encounter Summary ---
Author Organization [facility] [address] Care Team Providers Care Java Solutions Architect Name Role Phone Viridiana Oropeza MD Primary Care Provider [phone] Pankaj Navarro MD Unavailable Encounter Details Date Type Department Care Team (Latest Contact Info) Description 07/21/2024 Travel Social History Tobacco Use Types Packs/Day Years Used Date Smoking Tobacco: Never Passive Smoke Exposure: Never Smokeless Tobacco: Never Alcohol Use Standard Drinks/Week Comments No 0 (1 standard drink = 0.6 oz pur e alcohol) [facility] Utilities Answer Date Recorded In the past 12 months has [employer] electric, gas, oil, or water company threatened to shut off services in your home? No 07/22/2024 Overall Financial Resource Strain (CARDIA) Answe r Date Recorded How hard is it for you to pa y for the very basics like food, housing, medical care, and heating? Not hard at all 07/22/2024 PHQ-2 Answer Date Recorded PHQ-2 Total Score 0 07/22/2024 [facility] [place] of Occupat ional Health - Occupational Stress [...] things needed for daily living? No [facility]/21/2020 [facility] IP Transportation Answer D ate [...] as of this encounter Functional Status * Alcohol Screening [...] 4:08 PM EDT Genesis Dumont RN * Martin Suicide Severity Rating Scale (Q shift for moderate and high) Question Answer Date of Assessment Author 1. In the past month, have y ou wished you were or wished you could go to sleep and not wake up? 0 07/21/2024 4:08 PM EDT Genesis Lujna RN 2. In the past month, have [...] Tiffany Mccullough CCMA documented in this encounter Plan of Treatment Upcoming Encounters Date Type Department Care Team (Late st Contact Info) Description 09/16/2024 12:15 PM EDT Office Visit [facility] [address] [place] [address] Viridiana Oropeza MD [address] [place] [address] documented as of this encounter [...] documented as of this encounter Care Teams Java Solutions Architect Relationship Specialty Start Date End Date Viridiana Oropeza MD [address] [place] [address] PCP - General 01/19/09 Pankaj Navarro MD [address] [place] [address] Physician Otolaryngology 09/18/23 documented as of this encounter
--- OUTSIDE RECORDS SUMMARY | 2024-08-18 07:59 | XMS_ITS | Clinical Summary ---
Author Organization [facility] Address [address] [place] [address] Care Team Providers Care Lead Level Designer Name Role Phone Pcp, No Primary Care Provider [phone] Source Comments This information has been disclosed to you from confidential records protectedfrom disclosure by state law. You shall make no further disclosure of thisinformation without the specific, written, and informed release of theindividual to whom it pertains, or as otherwise permitted by law. A generalauthorization for the release of medical or other information is not sufficientfor the purposes of therelease of HIV test results or diagnoses. [id number] Allergies Active Allergy Reactions Criticality Noted Date Comments Empagliflozin Hives Medium 02/07/2018 Hives, bad dreams Medications No known medications Active Problems No known active problems Social History Tobacco Use Types Packs/Day Years Used Date Smoking Tobacco: Never Smokeless Tobacco: Never PHQ-2 Answer Date Recorded PHQ-2 Total Score 0 09/29/2021 Sex and Gender Information Value Date Recorded Sex Assigned at Not on file Legal Sex Male 3:55 PM EST Gender Identity Not on file Sexual Orientation Not on file Last Filed Vital Signs Vital Sign Reading Time Taken Comments Blood Pressure - - Pulse - - Temperature - - Respiratory Rate - - Oxygen Saturation - - Inhaled Oxygen Concentration - - Weight 159.5 kg (351 lb 9.6 oz) 09/28/2021 2:34 PM EDT Height 172.7 cm (5' 8 ) 09/28/2021 2:3 4 PM EDT Body Mass Index 53.46 09/28/2021 2:34 PM EDT Plan of Treatment Health Maintenance Due Date Last Done Comments Abnormal Colonoscopy Follow Up 1956 Hepatitis C Screening (MyChart) 1956 Alcohol Misuse Screening 1974 Cologuard (FIT-DNA) 2001 Colonoscopy 2001 Colorectal Cancer Screening (MyChart) 2001 Stool Testing (gFOBT) 2001 Immunization: Zoster (1 of 2) 2006 Osteoporosis Screening (DXA Scan) 2006 Depression Screening 09/28/2022 09/28/2021 Immunization: COVID-19 ( season) 2023 08/17/2021, 12/20/2020, 04/22/2020 Immunization: DTaP/Tdap/Td ( 2 - Td or Tdap) 08/25/2024 08/25/2014 Immunization: Influenza (MyC spears) (#1) 2024 01/06/2024, 03/27/2023, 02/21/2022, Additional history exists Immunization: RSV (Adult) (1 - 1-dose 75+ series) 08/23/2031 Immunization: Pneumococcal Completed 02/21/2022, Insurance [facility] MEDICARE B Care Teams Lead Level Designer Relationship Specialty Start Date End Date Pcp, No No Address PCP - General 08/25/21
--- OUTSIDE RECORDS SUMMARY | 2024-08-18 07:59 | XMS_ITS | Encounter Summary ---
Author Organization [place] Address 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, implants and grafts, subsequent encounter documented in this encounter Results * EXTRA GOLD SST (06/02/2024 10:00 AM EDT) Blood VENOUS BLOOD / Unknown 06/02/2024 10:00 AM EDT 06/02/2024 2:43 PM EDT Wilfredo Forte MD CHEMISTRY ORDERABLES Final Re sult Performing Organization Address [facility] [place] [address] * CREATININE (06/02/2024 10:00 AM EDT) Creatinine 1.13 0.67 - 1.30 mg/dL 06/02/2024 6:27 PM EDT [facility] eGFR (CKD-EPIcr 2020) 71 >=60 mL/min/1.7 3 m2 06/02/2024 6:27 PM EDT [facility] Comment:Estimated GFR was ca lculated using the CKD-EPIcr (2020) equation refit without race. The equation is recommended by the National Kidney Foundation - [employer]ph[employer] Task Force. Blood VENOUS BLOOD / Unknown 06/02/2024 10:00 AM EDT 06/02/2024 2:43 PM EDT Wilfredo Forte MD CHEMISTRY ORDERABLES Final Re sult Performing Organization Address [facility] Co de Phone Number [facility], [address], [place] [address] * (ABNORMAL) C-REACTIVE PROTEIN (06/02/2024 10:00 AM EDT) CRP 26.44(H) <=5.00 mg/L 06/02/2024 6:27 PM EDT [facility] Blood VENOUS BLOOD / Unknown 06/02/2024 10:00 AM EDT 06/02/2024 2:43 PM EDT Wilfredo Forte MD CHEMISTRY ORDERABLES Final Re sult Performing Organization Address [facility] Co de Phone Number [facility], [facility] [address] , [place] [address] * (ABNORMAL) HEPATIC FUNCTION PANEL (06/02/2024 10:00 AM EDT) Pathologist [facility] Total Protein 5.9(L) 6.4 - 8.3 gm/dL 06/02/2024 6:27 PM EDT [facility] Albumin 3.6 3.2 - 4.6 gm/dL 06/02/2024 6:27 PM EDT [facility] Bili Direct <0.2 0.0 - 0.3 mg/dL 06/02/2024 6:27 PM EDT [facility] Bili Total <0.2(L) 0.2 - 1.4 mg/dL 06/02/2024 6:27 PM EDT [facility] AST 7 <=40 U/L 06/02/2024 6:27 PM EDT [facility] ALT 6 <=41 U/L 06/02/2024 6:27 PM EDT [facility] Alk Phos 93 40 - 129 U/L 06/02/2024 6:27 PM EDT [facility] Blood VENOUS BLOOD / Unknown 06/02/2024 10:00 AM EDT 06/02/2024 2:43 PM EDT Wilfredo Forte MD CHEMISTRY ORDERABLES Final Re sult Performing Organization Address City/[facility]/ZIP Co de Phone Number [facility], [facility] [address] , [place] [address] * (ABNORMAL) CBC WITH DIFF (06/02/2024 10:00 AM EDT) WBC 8.1 3.7 - 10.3 x10(3)/mcL 06/02/2024 3:23 PM EDT [facility] RBC 2.73(L) 4.60 - 6.10 x10(6)/mcL 06/02/2024 3:23 PM EDT [facility] Hgb 8.0(L) 13.7 - 17.5 g/dL 06/02/2024 3:23 PM EDT [facility] Hct 26.5(L) 40.0 - 51.0 % 06/02/2024 3:23 PM EDT [facility] MCV 97.1 80.0 - 100.0 fL 06/02/2024 3:23 PM EDT [facility] MCH 29.3 26.0 - 34.0 pg 06/02/2024 3:23 PM EDT [facility] MCHC 30.2(L) 30.7 - 35.5 g/dL 06/02/2024 3:23 PM EDT [facility] RDW 15.6(H) <=14.9 % 06/02/2024 3:23 PM EDT [facility] Platelet 248 155 - 369 x10(3)/mcL 06/02/2024 3:23 PM EDT [facility] MPV 10.3 8.8 - 12.5 fL 06/02/2024 3:23 PM EDT [facility] Neut Percent 39.4 % 06/02/2024 3:23 PM EDT [facility] Comment:Neutrophils equals s egs plus bands Imm Gran% 0.2 % 06/02/2024 3:23 PM EDT [facility] Comment:Automated count of m etamyelocytes, myelocytes and promyelocytes. Lymph Percent 40.8 % 06/02/2024 3:23 PM EDT [facility] [place] Percent 9.8 % 06/02/2024 3:23 PM EDT [facility] Eos Percent 9.3 % 06/02/2024 3:23 PM EDT [facility] Baso Percent 0.5 % 06/02/2024 3:23 PM EDT [facility], [facility] Neut # 3.2 1.6 - 6.1 x10(3)/[facility] 06/02/2024 3:23 PM EDT [facility], [facility] Comment:Neutrophils equals s egs plus bands IMMGRAN# 0.0 0.0 - 0.1 x10(3)/[facility] 06/02/2024 3:23 PM EDT [facility], [facility] Comment:Automated count of m etamyelocytes, myelocytes and promyelocytes. An absolute IG <0.1 is reported as 0.0. Lymph # 3.3 1.2 - 3.9 x10(3)/[facility] 06/02/2024 3:23 PM EDT [facility] [place] # 0.8 0.3 - 0.9 x10(3)/[facility] 06/02/2024 3:23 PM EDT [facility], [facility] Eos# 0.8(H) 0.0 - 0.5 x10(3)/[facility] 06/02/2024 3:23 PM EDT [facility], [facility] Baso # 0.0 0.0 - 0.1 x10(3)/[facility] 06/02/2024 3:23 PM EDT [facility], [facility] Blood VENOUS BLOOD / Unknown 06/02/2024 10:00 AM EDT 06/02/2024 2:43 PM EDT Wilfredo Forte MD HEMATOLOGY ORDERABLES Final R esult [facility], [facility] [address] , [place] [address] * (ABNORMAL) BLOOD UREA NITROGEN (06/02/2024 10:00 AM EDT) BUN 6(L) 8 - 23 mg/dL 06/02/2024 6:27 PM EDT [facility], [facility] Blood VENOUS BLOOD / Unknown 06/02/2024 10:00 AM EDT 06/02/2024 2:43 PM EDT Wilfredo Forte MD CHEMISTRY ORDERABLES Final Re sult [facility], [employer] [address] [place], [place] [address] documented in this encounter Visit Diagnoses Diagnosis 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, implants and grafts, subsequent encounter documented in this encounter Additional Health Concerns Infection Onset Date Last Indicated Resolved Time R/O C-Diff 07/22/2024 07/22/2024 07/22/2024 1:25 PM EDT C-diff 07/22/2024 07/22/2024 Assessment Noted Time A fall risk assessment has been complete d for the patient 01/06/2024 10:53 AM EST documented as of this encounter Care Teams Swage Tender Relationship Specialty Start Date End Date Viridiana Oropeza MD [address] [place] [address] PCP - General 01/19/09 Pankaj Navarro MD [address] [place] [id number] Physician Otolaryngology 09/18/23 documented as of this encounter
--- OUTSIDE RECORDS SUMMARY | 2024-08-18 07:59 | XMS_ITS | Clinical Summary ---
Author Organization [facility] Address [address] [place] [address] Care Team Providers Care Chemical Handler Name Role Phone Viridiana Oropeza MD Primary Care Provider [phone] MarcellusaddisonkileyGerardo pink Unavailable [phone] Allergies Active Allergy Reactions Criticality Noted Date Comments Empagliflozin Hives High 02/07/2018 Medications * This document contains information received from the source organization and may not represent a complete record from that organization. lisinopril 2.5 MG tablet Take 1 tablet (2.5 mg) by mouth 1 (one) time each day. 2 Active oxyCODONE-aceta minophen (Percocet) 10-325 MG tablet Take 1 tablet by mouth in the morning and 1 tablet in the evening and 1 tablet before bedtime. 3 Active bisacodyl (Dulcolax) 5 MG EC tablet Take 1 tablet (5 mg) by mouth daily. Do not crush, chew, or split. 30 tablet 5 Active naloxone (Narcan) 4 mg/0.1 mL nasal spray 1. Give 1 spray in nostril for no/slow breathing or cannot wake after opioid use 2. Call 911 3. Repeat in other nostril if symptoms continue 1 each 5 Active traMADol (Ultram) 50 MG tablet Take 1 or 2 tablets every 4-6 hours as needed for moderate pain 56 tablet 5 Active tamsulosin (Flomax) 0.4 MG 24 hr capsule Take 1 capsule (0.4 mg) by mouth 2 (two) times a day. 60 capsule 5 Active acetaminophen (Tylenol) 325 MG tablet Take 2 tablets (650 mg) by mouth every 8 hours. 100 tablet Active tiZANidine (Zanaflex) 4 MG tablet Take 1 tablet (4 mg) by mouth every 8 hours as needed for muscle spasms. Active apixaban (Eliquis) 2.5 MG tablet Take 1 tablet by mouth in the morning and 1 tablet before bedtime. Do all this for 28 days. For total course 4 weeks post-op for blood clot prevention. 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 180 capsule 2 Active Additional Information Patient not taking.Reason: Side effects (had and reaction to it), Reported on 07/20/2024 Active Problems Problem Noted Date Diagnosed Date Fever in adult 05/04/2024 Postoperative wound infection of right hip 05/02 Abscess of right hip 05/01/2024 Right hip pain 05/01/2024 HELEN (obstructive sleep apnea) 03/31/2024 History of bilateral total hip arthroplasty 11/12 Pain in right hip 12/09/2023 Morbid obesity with body mass index (BMI) of 40. 0 or higher 04/09/2022 Encounters Date Type Department Care Team Description 08/05/[address] [address] Roxana Wagoner 07/20/2024 10:30 AM EDT Office Visit [address] [id number] Wilfredo Forte MD Infection of prosthetic joint, subsequent encounter (Primary Dx) 07/20/2024 Results Follow-Up [address] [address] Wilfredo Forte MD abnormal labs (Mr. Reyna's labwork showed an elevated creatinine, WBC of 21,000 and and a marked increase in his CRP. I have contacted him with these lab results and expressed concern about the potential for a recurrent hip infection. 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, subsequent encounter 06/15/2024 Travel 06/11/[address] [address] Jocelynn Jeanette Roc 06/10/2024 Orders Only [facility] [address] [facility], [address] [place] [address] Mohan Wagoner PA S/P revision of total hip (Primary Dx) 06/09/2024 Telephone Medical [facility] [address] [facility], [address] [place] [address] Alejandro Rojas MD HCN - Patient Message 06/01/[address] [phone] Ellen Ashton, RN 05/28/2024 Telephone Medical [facility] [address] [facility], [address] [place] [address] Alejandro Rojas MD HCN - Patient Message 05/25/2024 2:20 PM EDT Office Visit Medical [facility] [address] [facility], [address] [place] [address] Mohan Wagoner PA S/P revision of total hip (Primary Dx) 05/25/2024 11:00 AM EDT Office Visit [address] [phone] Wilfredo Forte MD 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, subsequent encounter (Primary Dx); Encounter for central line care 05/25/2024 Orders Only [facility] [address] [place] [address] Wilfredo Forte MD 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, subsequent encounter (Primary Dx) 05/25/2024 Travel 05/19/2024 Telephone Medical Office [facility] [address] [facility], [address] [place] [address] Mohan Wagoner PA HCN - Patient Message from Last 3 Months Immunizations Immunization Administration Dates Next Due Influenza, High-dose, Split Virus, Trivalent, Injectable, preservative free 01/06/2024 Influenza, high-dose, quadrivalent 03/27/2023, Influenza, recombinant, quad rivalent, injectable, preservative free 11/04/2017 Pneumococcal Conjugate PCV 13 11/04/2017 Pneumococcal Polysaccharide PPV23 02/21/2022 Tdap 08/25/2014 Family History Medical History Relation Name Comments Arthritis Other Anesthesia problems Neg Hx Malig Hyperthermia Neg Hx Relation Name Status Comments Other Social History Tobacco Use Types Packs/Day Years Used Date Smoking Tobacco: Never Passive Smoke Exposure: Never Smokeless Tobacco: Never Tobacco Cessation:Counseling Given: Not Answered Alcohol Use Standard Drinks/Week Comments Not Currently [...] answer 05/04/2024 How often do you attend [facility] or gnosticism services? Patient unable to answer 05/04/2024 Do you belong to any clubs o r organizations such as yazidi groups, unions, fraSHADOW or athletic groups, or school groups? Patient [...] Recorded Patient Health Questionnaire-2 Score 0 06/15/2024 [facility] - Occupational Stress Questionnaire Answer Date [...] any time in the past 12 m [facility], were you homeless or living in a correction (including now)? No 05/04/2024 Utilities Answer Date Recorded In the past 12 months has th e [employer], gas, oil, or water company threatened to shut off services in your home? No 05/04/2024 Sex and Gender Information Value Date Recorded Sex Assigned at Male 05/07/2024 12:48 PM EDT Legal Sex Male 3:06 PM EST Gender Identity Male 05/07/2024 12:48 PM EDT Sexual Orientation Not on file Last Filed Vital Signs Vital Sign Reading Time Taken Comments Blood Pressure 113/76 07/20/2024 10:01 AM EDT Pulse 103 07/20/2024 10:01 AM EDT Temperature 36.6 C (97.9 F) 07/20/2024 10:01 AM EDT Respiratory Rate 15 05/13/2024 11:33 AM EDT Oxygen Saturation 96% 07/20/2024 10:01 AM EDT Inhaled Oxygen Concentration - - Weight 127 kg (280 lb 6.8 oz) 07/20/2024 10:01 A M EDT Height 175.3 cm (5' 9 ) 07/20/2024 10:01 AM EDT Body Mass Index 41.41 07/20/2024 10:01 AM EDT Plan of Treatment Health Maintenance Due Date Last Done Comments [facility]-Hepatitis C Screening 1955 [facility]-/Child/Adol SDOH Screenings 1955 Diabetes: Dental Exam 1966 CT Colonography 2001 Colonoscopy 2001 FIT-DNA 2001 FIT 2001 FOBT 2001 Sigmoidoscopy 2001 [facility]-Colorectal Cancer Screening 2001 [facility]-Zoster Vaccines (1 of 2) 2006 [facility]-RSV Vaccine: 60+ Years or (1 - Risk 60-74 years 1-dose series) 2016 [id number] Vaccine (2023- season) 2023 03/27/2023, 08/17/2021, 12/20/2020, Additional history exists [facility]-DTaP,Tdap,and Td Vaccines (2 - Td or Tdap) 08/25/2024 08/25/2014 [facility]-Medicare Annual Wellness (AWV) 09/30/2024 10/01/2023 [facility]-Influenza Vaccine (#1) 10/12/202401/05, 03/27/2023, 02/21/2022, Additional history exists [facility]-Diabetes: Hemoglobin A1C 10/30/2024 05/02/2024, 03/09/2024 [facility]- SDOH Screenings 11/04/2024 [facility]-Adult SDOH Screenings 11/04/2024 05/04/2024 [facility]-Depression Screening 06/15/2025 06/15/2024, 05/0 06/2024 [facility]-Pneumococcal Vaccine: 50+ Years Completed 02/21/2022, 11/04/2017 [facility]-Obesity Intervention Completed 025, 06/15/2024, 06/15/2024, Additional history exists HPV Vaccines Aged Out No longer eligi ble based on patient's age to complete this topic [facility]-HIB Vaccines Aged Out No longer e ligible based on patient's age to complete this topic [facility]-Hepatitis A Vaccines Aged Out No longer eligible based on patient's age to complete this topic [facility]-IPV Vaccines Aged Out No longer e ligible based on patient's age to complete this topic [facility]-Rotavirus Vaccines Aged Out No lo nger eligible based on patient's age to complete this topic Goals Goal Patient Goal Type Associated Problems Recent Progress Patient-Stated? Author Autogenera floyd Goal Care Plan Autogenerated Problem No Chris Ortiz Autogenera floyd Goal Care Plan Autogenerated Problem No Mohan Wagoner PA Medical Devices Implanted Type Area Alodize Machine Operator Device Identifier Shelf Expiration Date Model / Serial / Lot Cement Palacos W/Gent - Sn/A - [id number] Implanted:Qty : 1 on 05/02/2024 by Denis Stevenson MD at [facility] Cement Right: Hip [employer]-[id number] 05/12/2027 [id number] / N/A / [id number] Implant Implant Bilatera l: Hip Liner Ref Xlpe 36 20 Deg 54-56 F - [id number] Implanted:Qty : 1 on 03/26/2024 by Alejandro Rojas MD at [facility] Right: Hip [employer]-[id number] 07/27/2029 [id number] / / [id number] Hip Head Oxi Fm Tpr 36 +8 - [id number] Implanted:Qty : 1 on 03/26/2024 by Alejandro Rojas MD at [facility] Right: Hip [employer]-[id number] 07/01/2032 [id number] / / [id number] Chg Stem Redapt Frio 300mm So Sz21 - [id number] Implanted:Qty : 1 on 05/07/2024 by Alejandro Rojas MD at [facility] Right: Hip [employer]-[id number] 09/06/2031 [id number] / / [id number] Chg Head Oxinium Fem 01/24 28m - [id number] Implanted:Qty : 1 on 05/07/2024 by Alejandro Rojas MD at [facility] Right: Hip [employer]-[id number] 10/27/2033 [id number] / / [id number] Shell Modular Redapt 62mm - [id number] Implanted:Qty : 1 on 05/07/2024 by Alejandro Rojas MD at [facility] Right: Hip [employer]-[id number] 10/21/2032 [id number] / / [id number] Chg Screw Ref Spher Head 25mm - [id number] Implanted:Qty : 1 on 05/07/2024 by Alejandro Rojas MD at [facility] Right: Hip [employer]-[id number] 11/04/2033 [id number] / / [id number] Liner Or3o Dual Mbility 48 62 - [id number] Implanted:Qty : 1 on 05/07/2024 by Alejandro Rojas MD at [facility] Right: Hip [employer]-[id number] 06/24/2032 [id number] / / [id number] Chg Screw Ref Spher Head 25mm - [id number] Implanted:Qty : 1 on 05/07/2024 by Alejandro Rojas MD at [facility] Right: Hip [employer]-[id number] 11/02/2033 [id number] / / [id number] Chg Screw Redapt Lock 15mm - [id number] Implanted:Qty : 1 on 05/07/2024 by Alejandro Rojas MD at [facility] Right: Hip [employer]-[id number] 09/23/2033 [id number] / / [id number] Liner Or3o Dual Mbility Xlpe 28 48 - [id number] Implanted:Qty : 1 on 05/07/2024 by Alejandro Rojas MD at [facility] Right: Hip [employer]-[id number] 01/09/2030 [id number] / / [id number] Procedures Procedure Name Priority Date/Time Associated Diagnosis Comments CBC WITH AUTO DIFFERENTIAL Routine 07/20/2024 10:40 AM EDT Infection of prosthetic joint, subsequent encounter COMPREHENSIVE METABOLIC PANEL, PLASMA Routine 07/20/2024 10:40 AM EDT Infection of prosthetic joint, subsequent encounter C-REACTIVE PROTEIN, PLASMA Routine 07/20/2024 10:40 AM EDT Infection of prosthetic joint, subsequent encounter PICC REMOVAL (CLINIC-PERFORMED) Routine 06/15/2024 10:12 AM EDT 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, subsequent encounter C-REACTIVE PROTEIN, PLASMA Routine 06/08/2024 UREA NITROGEN, PLASMA Routine 06/08/2024 CREATININE, PLASMA Routine 06/08/2024 HEPATIC FUNCTION PANEL Routine 06/08/2024 CBC WITH AUTO DIFFERENTIAL Routine 06/02/2024 COMPREHENSIVE METABOLIC PANEL, PLASMA Routine 06/02/2024 C-REACTIVE PROTEIN, PLASMA Routine 06/02/2024 PERIPHERAL BLOOD SMEAR, PATHOLOGIST INTERPRETATION Routine 05/25/2024 1:00 PM EDT Postoperative wound infection of right hip CBC WITH AUTO DIFFERENTIAL Routine 05/25/2024 1:00 PM EDT Postoperative wound infection of right hip COMPREHENSIVE METABOLIC PANEL, PLASMA Routine 05/25/2024 1:00 PM EDT Postoperative wound infection of right hip C-REACTIVE PROTEIN, PLASMA Routine 05/25/2024 1:00 PM EDT Postoperative wound infection of right hip HEMOGLOBIN A1C STAT Add-on 05/02/2024 2:46 AM EDT from Last 3 Months or Most Recently Relevant to Health Maintenance Results * (ABNORMAL) CBC and Differential (07/20/2024 10:40 AM EDT) Only the most recent of3 resultswithin the time period is included. WBC Count 20.96(H) 3.70 - 10.30 10*3/uL LAB HEMATOLOGY METHOD 07/20/2024 2:54 PM EDT [facility] RBC Count 4.16(L) 4.60 - 6.10 10*6/uL LAB HEMATOLOGY METHOD 07/20/2024 2:54 PM EDT [facility] HGB 11.5(L) 13.7 - 17.5 g/dL LAB HEMATOLOGY METHOD 07/20/2024 2:54 PM EDT [facility] HCT 37.3(L) 40.0 - 51.0 % LAB HEMATOLOGY METHOD 07/20/2024 2:54 PM EDT [facility] Platelet Count 316 155 - 369 10*3/uL LAB HEMATOLOGY METHOD 07/20/2024 2:54 PM EDT [facility] MCV 90 79 - 98 fL LAB HEMATOLOGY METHOD 07/20/2024 2:54 PM EDT [facility] MCH 27.6 26.0 - 32.0 pg LAB HEMATOLOGY METHOD 07/20/2024 2:54 PM EDT [facility] MCHC 30.8 30.7 - 35.5 g/dL LAB HEMATOLOGY METHOD 07/20/2024 2:54 PM EDT [facility] RDW 15.5(H) 11.5 - 14.5 % LAB HEMATOLOGY METHOD 07/20/2024 2:54 PM EDT [facility] MPV 9.7 8.8 - 12.5 fL LAB HEMATOLOGY METHOD 07/20/2024 2:54 PM EDT [facility] nRBC 0.0 <=0.0 per 100 WBCs LAB HEMATOLOGY METHOD 07/20/2024 2:54 PM EDT [facility] Differential Type Automated LAB HEMATOLOGY METHOD 07/20/2024 2:54 PM EDT [facility] Neutrophils % 49 % LAB HEMATOLOGY METHOD 07/20/2024 2:54 PM EDT [facility] Lymphocytes % 37 % LAB HEMATOLOGY METHOD 07/20/2024 2:54 PM EDT [facility] Monocytes % 7 % LAB HEMATOLOGY METHOD 07/20/2024 2:54 PM EDT [facility] Eosinophils % 3 % LAB HEMATOLOGY METHOD 07/20/2024 2:54 PM EDT [facility] Basophils % 0 % LAB HEMATOLOGY METHOD 07/20/2024 2:54 PM EDT [facility] Immature Granulocytes % 4 % LAB HEMATOLOGY METHOD 07/20/2024 2:54 PM EDT [facility] Neutrophils Absolute 10.36(H) 1.60 - 6.10 10*3/uL LAB HEMATOLOGY METHOD 07/20/2024 2:54 PM EDT [facility] Lymphocytes Absolute 7.66(H) 1.20 - 3.90 10*3/uL LAB HEMATOLOGY METHOD 07/20/2024 2:54 PM EDT [facility] Monocytes Absolute 1.51(H) 0.30 - 0.90 10*3/uL LAB HEMATOLOGY METHOD 07/20/2024 2:54 PM EDT [facility] Eosinophils Absolute 0.61(H) 0.00 - 0.50 10*3/uL LAB HEMATOLOGY METHOD 07/20/2024 2:54 PM EDT [facility] Basophils Absolute 0.07 0.00 - 0.10 10*3/uL LAB HEMATOLOGY METHOD 07/20/2024 2:54 PM EDT [facility] Immature Granulocytes Absolute 0.75(H) 0.00 - 0.06 10*3/uL LAB HEMATOLOGY METHOD 07/20/2024 2:54 PM EDT [facility] Blood Venous blood specimen / Unknown Venipuncture / Unknown 07/20/2024 10:40 AM EDT 07/20/2024 10:40 AM EDT Narrative [facility] - 07/20/2024 2:54 PM EDT Therapeutic decision making should be based on absolute values, rather than percentages. us Wilfredo Forte MD LAB BLOOD ORDERABLES Final Re sult [facility] [address] [place] [address] * (ABNORMAL) C-reactive protein (07/20/2024 10:40 AM EDT) Only the most recent of4 resultswithin the time period is included. CRP, Plasma 96.8(H) <=8.0 mg/L 07/20/2024 12:33 PM EDT [facility] Blood Venous blood specimen / Unknown Venipuncture / Unknown 07/20/2024 10:40 AM EDT 07/20/2024 10:40 AM EDT Narrative [facility] - 07/20/2024 12:33 PM EDT This CRP test is appropriate for assessment of infection, systemic inflammation and/or tissue injury. To assess cardiovascular disease risk order high sensitivity CRP (CRPH). us Wilfredo Forte MD LAB BLOOD ORDERABLES Final Re sult [facility] [address] [place] [address] * (ABNORMAL) Comprehensive Metabolic Panel, Plasma (07/20/2024 10:40 AM EDT) Only the most recent of3 resultswithin the time period is included. Glucose, Plasma 129(H) 74 - 99 mg/dL 07/20/2024 12:33 PM EDT [facility] BUN, Plasma 33(H) 8 - 23 mg/dL 07/20/2024 12:33 PM EDT [facility] Creatinine, Plasma 2.15(H) 0.70 - 1.20 mg/dL 07/20/2024 12:33 PM EDT [facility] BUN/Creatinine Ratio 15 07/20/2024 12:33 PM EDT [facility] Sodium, Plasma 137 136 - 145 mmol/L 07/20/2024 12:33 PM EDT [facility] Potassium, Plasma 4.4 3.6 - 4.9 mmol/L 07/20/2024 12:33 PM EDT [facility] Chloride, Plasma 104 97 - 107 mmol/L 07/20/2024 12:33 PM EDT [facility] CO2, Plasma 19(L) 22 - 29 mmol/L 07/20/2024 12:33 PM EDT [facility] Anion Gap 14 6 - 16 mmol/L 07/20/2024 12:33 PM EDT [facility] Total Calcium, Plasma 9.3 8.9 - 10.2 mg/dL 07/20/2024 12:33 PM EDT [facility] Total Protein 6.6 6.3 - 7.9 g/dL 07/20/2024 12:33 PM EDT [facility] Albumin, Plasma 3.5 3.5 - 5.2 g/dL 07/20/2024 12:33 PM EDT [facility] AST, Plasma 13 10 - 50 U/L 07/20/2024 12:33 PM EDT [facility] ALT, Plasma 13 10 - 50 U/L 07/20/2024 12:33 PM EDT [facility] Alkaline Phosphatase, Plasma 96 40 - 115 U/L 07/20/2024 12:33 PM EDT [facility] Total Bilirubin, Plasma <0.2(L) 0.2 - 1.1 mg/dL 07/20/2024 12:33 PM EDT [facility] eGFRcr 32.9 mL/min/1.7 3m*2 07/20/2024 12:33 PM EDT [facility] Comment:Reported eGFRcr in m L/min/1.73m2 is based the CKD-EPI 2020 equation that does not use a race coefficient. Blood Venous blood specimen / Unknown Venipuncture / Unknown 07/20/2024 10:40 AM EDT 07/20/2024 10:40 AM EDT us Wilfredo Forte MD LAB BLOOD ORDERABLES Final Re sult [facility] [address] [place] [address] * PICC Removal (Clinic-Performed) (06/15/2024 10:12 AM EDT) Narrative Wilfredo Forte MD - 06/15/2024 10:12 AM EDT Wilfredo Forte MD 06/15/2024 12:22 PM PICC Removal (Clinic-Performed) Date/Time: 06/15/2024 10:12 AM Performed by: Ellen Ashton, RN Authorized by: Wilfredo Forte MD Indications: vascular access Patient position: flat Catheter type: double lumen Post-procedure: dressing applied Patient tolerance: patient tolerated the procedure well with no immediate complications Comments: PICC removed per protocol. Pt denied chest pain, shortness of breath, and dizziness. Instructions given per handout and verbal instruction using teach back method. Jaylene Ashton RN us Wilfredo Forte MD IN CLINIC/BEDSIDE ORDERABLES Edited Result - Final * Creatinine, Plasma (06/08/2024) External Creatinine Blood 1.06 mg/dL Blood Venous blood specimen / Unknown 06/08/2024 [facility] Provider MD LAB BLOOD ORDERABLES Jaimee l Result * Urea Nitrogen, Plasma (06/08/2024) External BUN 5 Blood Venous blood specimen / Unknown 06/08/2024 [facility] Provider LAB BLOOD ORDERABLES Jaimee l Result * Hepatic Function Panel (06/08/2024) External Alkaline Phosphatase 80 External Bilirubin Total 0.2 mg/dL External ALT (SGPT) 5 External AST (SGOT) 9 Blood Venous blood specimen / Unknown 06/08/2024 Result [facility] Provider LAB BLOOD ORDERABLES Jaimee l Result * Peripheral blood smear, pathologist interpretation (05/25/2024 1:00 PM EDT) Clinical Diagnosis, Peripheral Smear S/p Right hip prosthetic joint infection LAB HEMATOLOGY METHOD 05/26/2024 10:02 AM EDT [facility] Interpretation , Peripheral Smear White blood cells with small atypical lymphocytes with mature condensed chromatin. Occasional hypersegmented neutrophils are seen. Moderate anemia with anisocytosis, few elliptocytes. Platelets are adequate in number and morphology. See comment 05/26/2024 10:02 AM EDT [facility] Pathologist Signature, Peripheral Smear 05/26/2024 10:02 AM EDT [facility] Comment:Reviewed by: Shavon Hedrick MD Blood Venous blood specimen / Unknown Venipuncture / Unknown 05/25/2024 1:00 PM EDT 05/25/2024 1:01 PM EDT [facility]arrative [facility] - 05/26/2024 10:02 AM EDT The lymphocyte morphology is concerning for a lymphoproliferative disorder. A flow cytometry immunophenotyping is suggested. us Wilfredo Forte MD LAB PATHOLOGY ORDERABLES Jaimee rodriges Result Performing Organization Address [facility] Co de Phone Number [facility] [address] [place] [address] * (ABNORMAL) Hemoglobin A1c (05/02/2024 2:46 AM EDT) Hemoglobin A1c 5.8(H) <5.7 % 05/02/2024 8:35 AM EDT [facility] Blood Venous blood specimen / Unknown Venipuncture / Unknown 05/02/2024 2:46 AM EDT 05/02/2024 2:58 AM EDT Narrative [facility] - 05/02/2024 8:35 AM EDT HA1C Interpretive Data: Diagnosis of Diabetes: Diabetic > or = 6.5% Pre-diabetic 5.7 to 6.4% Non-diabetic < or = 5.6% Glycemic Targets for Type I and Type II Diabetics: Non- Adults <7.0% Adults <6.0% Children and Adolescents <7.5% Source: [place] [employer]. Standards of medical care in diabetes,2017. Diabetes Care.2017:40 (suppl 1):S1-S135. HbA1c assay performed by an ion-exchange chromatography method that is certified traceable to the DCCT. us Regan Frank MD LAB BLOOD ORDERABLES Final Resul t Performing Organization Address City/[facility] Co de Phone Number [facility] [address] [place] [address] from Last 3 Months or Most Recently Relevant to Health Maintenance Additional Health Concerns Active Problems Noted Date Diagnosed Date Autogenerated Problem 07/17/2024 Autogenerated Problem 06/05/2024 Insurance [facility] [place] [address] Advance Directives * Full Code (Latest Code Status on File) Date Activated Date Inactivated Comments 05/02/2024 3:18 PM 05/13/2024 6:35 PM * Full Code Date Activated Date Inactivated Comments 05/02/2024 5:18 AM 05/02/2024 3:18 PM * Full Code Date Activated Date Inactivated Comments 03/26/2024 12:27 PM 04/01/2024 9:30 PM Question Answer Comments Patient has decision-making capacity? Yes Care Teams Chemical Handler Relationship Specialty Start Date End Date Viridiana Oropeza MD [address] [place] [address] PCP - General 03/13/22 Gerardo Mcbride [address] [place] [address] 08/23/23
--- OUTSIDE RECORDS SUMMARY | 2024-08-18 07:59 | XMS_ITS | Encounter Summary ---
Author Organization [place] Address One [facility] [place] [address] Care Team Providers Care Programming Intern Name Role Phone Viridiana Oropeza MD Primary Care Provider [phone] Pankaj Navarro MD Unavailable [phone] Encounter Details Date Type Department Care Team (Late st Contact Info) Description 06/08/2024 Lab Requisition [facility] [place] [id number] Wilfredo Forte MD Infection following a procedure, superficial incisional surgical site, subsequent encounter Social History Tobacco Use Types Packs/Day Years Used Date Smoking Tobacco: Never Passive Smoke Exposure: Never Smokeless Tobacco: Never Alcohol Use Standard Drinks/Week Comments No 0 (1 standard drink = 0.6 oz pur e alcohol) [facility] Utilities Answer Date Recorded In the [...] Date Recorded PHQ-2 Total Score 0 03/23/2024 [facility] of Occupat ional Health - Occupational Stress [...] things needed for daily living? No 01/21/[address] [facility] IP Transportation Answer D ate Recorded In [...] Description 09/16/2024 12:15 PM EDT Office Visit [facility] [address] [place] [address] Viridiana Oropeza MD [address] [place] [address] documented as of this encounter [...] Priority Date/Time Associated Diagnosis Comments CBC WITH DIFF Routine 06/08/2024 10:00 AM EDT Infection following a procedure, superficial incisional surgical site, subsequent encounter C-REACTIVE PROTEIN Routine 06/08/2024 10 :00 AM EDT Infection following a procedure, superficial incisional surgical site, subsequent encounter BLOOD UREA NITROGEN Routine 06/08/2024 1 0:00 AM EDT Infection following a procedure, superficial incisional surgical site, subsequent encounter CREATININE Routine 06/08/2024 10:00 AM EDT Infection following a procedure, superficial incisional surgical site, subsequent encounter HEPATIC FUNCTION PANEL Routine 06/08/2024 10:00 AM EDT Infection following a procedure, superficial incisional surgical site, subsequent encounter documented in this encounter Results * (ABNORMAL) C-REACTIVE PROTEIN (06/08/2024 10:00 AM EDT) CRP 13.48(H) <=5.00 mg/L 06/08/2024 8:47 PM EDT [facility] Blood VENOUS BLOOD / Unknown 06/08/2024 10:00 AM EDT 06/08/2024 4:41 PM EDT us Wilfredo Forte MD CHEMISTRY ORDERABLES Final Re sult [facility] [address] [facility] , [place] [address] * (ABNORMAL) HEPATIC FUNCTION PANEL (06/08/2024 10:00 AM EDT) Total Protein 6.0(L) 6.4 - 8.3 gm/dL 06/08/2024 8:47 PM EDT [facility] Albumin 3.7 3.2 - 4.6 gm/dL 06/08/2024 8:47 PM EDT [facility] Bili Direct <0.2 0.0 - 0.3 mg/dL 06/08/2024 8:47 PM EDT [facility] Bili Total 0.2 0.2 - 1.4 mg/dL 06/08/2024 8:47 PM EDT [facility] AST 9 <=40 U/L 06/08/2024 8:47 PM EDT [facility] ALT 5 <=41 U/L 06/08/2024 8:47 PM EDT [facility] Alk Phos 80 40 - 129 U/L 06/08/2024 8:47 PM EDT [facility] Blood VENOUS BLOOD / Unknown 06/08/2024 10:00 AM EDT 06/08/2024 4:41 PM EDT us Wilfredo Forte MD CHEMISTRY ORDERABLES Final Re sult Performing Organization Address [facility] Co de Phone Number [facility] [employer] [facility] [address] [address] , [place] [address] * CREATININE (06/08/2024 10:00 AM EDT) Creatinine 1.06 0.67 - 1.30 mg/dL 06/08/2024 8:47 PM EDT [facility] [employer] [facility] eGFR (CKD-EPIcr 2020) 77 >=60 mL/min/1.7 3 m2 06/08/2024 8:47 PM EDT [facility] [employer] [facility] Comment:Estimated GFR was ca lculated using the CKD-EPIcr (2020) equation refit without race. The equation is recommended by the National Kidney Foundation - [place] [employer] of Nephrology Task Force. Blood VENOUS BLOOD / Unknown 06/08/2024 10:00 AM EDT 06/08/2024 4:41 PM EDT us Wilfredo Forte MD CHEMISTRY ORDERABLES Final Re sult Performing Organization Address [facility] Co de Phone Number [facility] [employer] [facility] [address] [facility] , [place] [address] * (ABNORMAL) CBC WITH DIFF (06/08/2024 10:00 AM EDT) WBC 9.0 3.7 - 10.3 x10(3)/mcL 06/08/2024 5:09 PM EDT [facility] [employer] RBC 2.89(L) 4.60 - 6.10 x10(6)/mcL 06/08/2024 5:09 PM EDT [facility] [employer] [employer] Hgb 8.3(L) 13.7 - 17.5 g/dL 06/08/2024 5:09 PM EDT [facility] [employer] [employer] Hct 28.3(L) 40.0 - 51.0 % 06/08/2024 5:09 PM EDT [facility] MCV 97.9 80.0 - 100.0 fL 06/08/2024 5:09 PM EDT [facility] MCH 28.7 26.0 - 34.0 pg 06/08/2024 5:09 PM EDT [facility] MCHC 29.3(L) 30.7 - 35.5 g/dL 06/08/2024 5:09 PM EDT [facility], [facility] RDW 15.2(H) <=14.9 % 06/08/2024 5:09 PM EDT [facility] Platelet 294 155 - 369 x10(3)/mcL 06/08/2024 5:09 PM EDT [facility] MPV 10.8 8.8 - 12.5 fL 06/08/2024 5:09 PM EDT [facility], [facility] Neut Percent 37.7 % 06/08/2024 5:09 PM EDT [facility] Comment:Neutrophils equals s egs plus bands Imm Gran% 0.2 % 06/08/2024 5:09 PM EDT [facility] Comment:Automated count of m etamyelocytes, myelocytes and promyelocytes. Lymph Percent 45.4 % 06/08/2024 5:09 PM EDT [facility] Pleasants Percent 9.0 % 06/08/2024 5:09 PM EDT [facility] Eos Percent 7.3 % 06/08/2024 5:09 PM EDT [facility] Baso Percent 0.4 % 06/08/2024 5:09 PM EDT [facility] Neut # 3.4 1.6 - 6.1 x10(3)/mcL 06/08/2024 5:09 PM EDT [facility] Comment:Neutrophils equals s egs plus bands IMMGRAN# 0.0 0.0 - 0.1 x10(3)/mcL 06/08/2024 5:09 PM EDT [facility] Comment:Automated count of m etamyelocytes, myelocytes and promyelocytes. An absolute IG <0.1 is reported as 0.0. Lymph # 4.1(H) 1.2 - 3.9 x10(3)/mcL 06/08/2024 5:09 PM EDT [facility] Pleasants # 0.8 0.3 - 0.9 x10(3)/mcL 06/08/2024 5:09 PM EDT [facility] Eos# 0.7(H) 0.0 - 0.5 x10(3)/mcL 06/08/2024 5:09 PM EDT [facility] Baso # 0.0 0.0 - 0.1 x10(3)/mcL 06/08/2024 5:09 PM EDT [facility] Blood VENOUS BLOOD / Unknown 06/08/2024 10:00 AM EDT 06/08/2024 4:41 PM EDT us Wilfredo Forte MD HEMATOLOGY ORDERABLES Final R esult [facility], [address] , [place] [address] * (ABNORMAL) BLOOD UREA NITROGEN (06/08/2024 10:00 AM EDT) BUN 5(L) 8 - 23 mg/dL 06/08/2024 8:47 PM EDT [facility] Blood VENOUS BLOOD / Unknown 06/08/2024 10:00 AM EDT 06/08/2024 4:41 PM EDT us Wilfredo Forte MD CHEMISTRY ORDERABLES Final Re sult Performing Organization Address [facility]/ZIP Co de Phone Number [facility], [address] , [place] [address] documented in this encounter Visit Diagnoses Diagnosis Infection following a procedure, superficial incisional surgical site, subsequent encounter documented in this encounter Additional Health Concerns Infection Onset Date Last Indicated Resolved Time R/O C-Diff 07/22/2024 07/22/2024 07/22/2024 1:25 PM EDT C-diff 07/22/2024 07/22/2024 Assessment Noted Time A fall risk assessment has been complete d for the patient 01/06/2024 10:53 AM EST documented as of this encounter Care Teams Programming Intern Relationship Specialty Start Date End Date Viridiana Oropeza MD [address] [place] [address] PCP - General 01/19/09 Pankaj Navarro MD [address] [place] [address] Physician Otolaryngology 09/18/23 documented as of this encounter
--- OUTSIDE RECORDS SUMMARY | 2024-08-18 07:59 | XMS_ITS | Encounter Summary ---
Author [place] [address] Care Team Providers Care Manager Trading Name Role Phone Viridiana Oropeza MD Primary Care Provider [phone] Pankaj Navarro MD Unavailable [phone] Reason for Visit * Reason Onset Date Comments Relaying Information 06/23/2024 Pt is compl aining of itching / redness that is spreading from his trunk to his legs and arms and is concerned about a possible allergic reaction since the redness and itching is spreading. Pt was seen yesterday and home health did help apply the cream but wanted to make provider aware it was getting worse and spreading. Encounter Details Date Type Department Care Team (Late st Contact Info) Description 06/23/2024 Telephone [facility] [address] [place] [address] Viridiana Oropeza MD [address] [place] [address] Relaying Information (Pt is complaining of itching / redness that is spreading from his trunk to his legs and arms and is concerned about a possible allergic reaction since the redness and itching is spreading. Pt was seen yesterday and home health did help apply the cream but wanted to make provider aware it was getting worse and spreading. ) Social History Tobacco Use Types Packs/Day Years Used Date Smoking Tobacco: Never Passive Smoke Exposure: Never Smokeless Tobacco: Never Alcohol Use Standard Drinks/Week Comments No 0 (1 standard drink = 0.6 oz pur e alcohol) [facility] Utilities Answer Date Recorded In the past 12 months has [employer], gas, oil, or water company threatened to shut off services in your home? No 08/29/2023 Overall Financial Resource Strain (CARDIA) Answe r Date Recorded How hard is it for you to pa y for the very basics like food, housing, medical care, and heating? Not hard at all 08/29/2023 PHQ-2 Answer Date Recorded PHQ-2 Total Score 0 03/23/2024 [facility] - Occupational Stress Questionnaire Answer Date [...] things needed for daily living? No 01/21/2020 [facility] IP Transportation Answer D ate Recorded [...] Assessment Author No 03/23/2024 10:00 AM LENORA BalderramaTiffany CCMA * Is the person blind or does he/she have serious difficulty seeing even when wearing glasses? Answer Date of Assessment Author No 03/23/2024 10:00 AM Tiffany Mccullough KEEGAN Rouse * Does this person have serious difficulty walking or climbing stairs? Answer Date of Assessment Author Yes 03/23/2024 10:00 AM LENORA ConchisTiffany CCMA * Does this person have difficulty dressing or bathing? Answer Date of Assessment Author No 03/23/2024 10:00 AM LENORA Balderrama KEEGAN Johnston * Because of a physical, mental or [...] Entry Date Author No 03/23/2024 10:00 AM LENORA ArboledaTiffany rios CCMA documented in this encounter Miscellaneous Notes * Telephone Encounter - Kristi Balderrama CCMA - 06/23/2024 3:51 PM EDT I notified Adela at [facility]. * Telephone Encounter - Lucia Dunlap PA-C - 06/23/2024 2:19 PM EDT Have pt stop the hctz and start the new med from ER - torsemide for the swelling. Itching possibly from the swelling vs rnx to HCTZ but had itching prior to the HCTZ. * Telephone Encounter - Indy Cash - 06/23/2024 11:36 AM EDT Select the most appropriate reason for this telephone message: Relaying Information Relaying Information Who is Calling: Home HealthSue with [facility] (include facility and caller's name) What information is the caller relaying: Pt is complaining of itching / redness that is spreading from his trunk to his legs and arms and is concerned about a possible allergic reaction since the redness and itching is spreading. Pt was seen yesterday and home health did help apply the cream but wanted to make provider aware it was getting worse and spreading. Further follow-up needed? Yes Return Method of Communication:Phone call Additional Information:N/A documented in this encounter Plan of Treatment Upcoming Encounters Date Type Department Care Team (Late st Contact Info) Description 09/16/2024 12:15 PM EDT Office Visit [facility] [address] [place] [address] Viridiana Oropeza MD [address] [place] [address] documented as of this encounter [...] as of this encounter Care Teams Manager Trading Relationship Specialty Start [place] [address] [place] [address] PCP - General 01/19/09 Pankaj Navarro MD [address] [place] [address] Physician Otolaryngology 09/18/23 documented as of this encounter
--- OUTSIDE RECORDS SUMMARY | 2024-08-18 07:59 | XMS_ITS | Encounter Summary ---
Author Organization [facility] [place] [address] Care Team Providers Care Configuration Developer Name Role Phone Viridiana Oropeza MD Primary Care Provider [phone] Pankaj Navarro MD Unavailable [phone] Encounter Details Date Type Department Care Team (Latest Contact Info) Description 06/27/2024 Travel Social History Tobacco Use Types Packs/Day Years Used Date Smoking Tobacco: Never Passive Smoke Exposure: Never Smokeless Tobacco: Never Alcohol Use Standard Drinks/Week Comments No 0 (1 standard drink = 0.6 oz pur e alcohol) [facility] Utilities Answer Date Recorded In the past 12 months has [employer], gas, oil, or water company threatened to shut off services in your home? No 08/29/2023 Overall Financial Resource Strain (CARDIA) Answe r Date Recorded How hard is it for you to pa y for the very basics like food, housing, medical care, and heating? Not hard at all 08/29/2023 PHQ-2 Answer Date Recorded PHQ-2 Total Score 0 03/23/2024 [facility] [place] of Occupat ional Health - Occupational Stress [...] things needed for daily living? No 01/21/2020 [facility] IP Transportation Answer D ate Recorded In [...] 11:03 AM EDT Fidencio Rodriguez RN * [place] Suicide Severity Rating Scale (Q shift for [...] 09/16/2024 12:15 PM EDT Office Visit [facility] [address] [place] [address] Viridiana Oropeza MD [address] [place] [address] documented as of this encounter [...] documented as of this encounter Care Teams Configuration Developer Relationship Specialty Start Date End Date Viridiana Oropeza MD [address] [place] [address] PCP - General 01/19/09 Pankaj Navarro MD [address] [place] [address] Physician Otolaryngology 09/18/23 documented as of this encounter
== END 2024-08-17 23:59 | disposition home or self-care (01) ==
LOC: LAB.DROPOF 08-18 07:42
PROVIDERS: PCP Family Medicine; Visit Provider Family Medicine
DX: E11.22 Type 2 diabetes mellitus with diabetic chronic kidney disease (principal); Z76.89 Persons encountering health services in other specified circumstances; N18.9 Chronic kidney disease, unspecified
CPT/HCPCS: 80053; 80061; 82043; 82570; 84443; 85025

== ENCOUNTER 2024-09-08 14:25 | Outpatient (RCR) | payer MEDICARE, MEDICAID, SELFPAY ==
--- NOTE | 2024-09-08 16:40 | HMH.PTOPEV ---
PT Outpatient Evaluation Rehab PT Outpatient Evaluation Start: 09/08/24 14:51 Freq: Status: Active Protocol: Document 09/08/24 14:52 MARCIAL (Rec: 09/08/24 16:40 MARCIAL [id number]) E-signed By Sue Saez, PT Outpatient Therapy Subjective History Subjective History Pt is a 69 y/o male who reports onset of bilateral hand numbness and pain a couple months ago. Pt reports numbness and pain started initially of the pinky, ring and middle fingers then spread to his entire hand. Pt denies history or current neck or arm pain/paresthesia. Pt denies paresthesia of his feet. Pt denies noted swelling, discoloration, redness or warmth of his hands . Pt denies having recent imaging of his neck or wrists . Pt reports pain and numbness are worse at night time and keep him up at night impairing his sleep. Pt reports he also has decreased human resources director strength with difficulty holding onto a pencil with his right hand. Pt states he has also noticed his hands shake sometimes when holding an object like a cup. Pt reports he is diabetic and often forget to take his Metformin. R handed Medical History: Uncontrolled Type II Diabetes, Chronic Kidney Disease New diagnosis of No cancer in past 12 months? Chief Complaint Pain,Paresthesia,Decreased Machine Hamper Maker Strength Symptom Type Sharp,Numbness,Tingling Symptoms Relieved By Nothing Current Functional Sleeping Limitations Symptom Description Constant but Variable Level of pain today 7 (0-10) Pain scale - at its 7 best (0-10) Pain scale - at its 10 worst (0-10) Cervical Eval AROM Cervical Spine 45 Extension Active Range of Motion ( degrees) Cervical Spine 45 Flexion Active Range of Motion (degrees) Cervical Spine Right 45 Lateral Flexion Active Range of Motion (degrees) Cervical Spine Left 45 Lateral Flexion Active Range of Motion (degrees) Cervical Spine Right 60 Rotation Active Range of Motion ( degrees) Cervical Spine Left 60 Rotation Active Range of Motion ( degrees) Altered Sensation Bilateral Upper extremity C5,C6,C7 Dermatomes Comment decreased light touch sensation L compared to R Special Test C-Spine Foraminal Negative Left,Negative Right Compression ( [place]) Test C-Spine Foraminal Negative Distraction Test C-Spine Compression Negative Left,Negative Right Test Shoulder Abduction Negative Left,Negative Right Relief Test Wrist/Hand Eval Palpation Tenderness/Visual Exam Wrist pain bilateral Wrist/Hand Palpation Tenderness Findings Wrist/Hand Palpation carpal tunnel, wrist flexor & extensor mm 2/4 TTP Overall Comment Wrist Range of Motion Left Wrist Extension 55 Active Range of Motion (degrees) Wrist Flexion Active 60 Range of Motion ( degrees) Wrist Radial 25 Deviation Active Range of Motion ( degrees) Wrist Ulnar 25 Deviation Active Range of Motion ( degrees) Right Wrist Extension 60 Active Range of Motion (degrees) Wrist Flexion Active 65 Range of Motion ( degrees) Wrist Radial 25 Deviation Active Range of Motion ( degrees) Wrist Ulnar 25 Deviation Active Range of Motion ( degrees) Wrist Manual Muscle Testing Right Wrist Extension 4 Good Strength Grade Wrist Flexion 4 Good Strength Grade Wrist Radial 4 Good Deviation Strength Grade Wrist Ulnar 4 Good Deviation Strength Grade Left Wrist Extension 4- Good- Strength Grade Wrist Flexion 4- Good- Strength Grade Wrist Radial 4- Good- Deviation Strength Grade Wrist Ulnar 4- Good- Deviation Strength Grade Machine Hamper Maker/Pinch Strength Right Machine Hamper Maker Strength 60 Measurement (lbs) Left Machine Hamper Maker Strength 58.67 Measurement (lbs) Palmar Pinch (3- Moderate Impairment point) Ability Special Tests Wrist Phalen Test Negative Left,Negative Right Wrist Tinel Test Positive Left,Positive Right Miscellaneous Dx PT Eval Objective Objective Negative W and ulnar N Tinel special tests Outpatient Therapy Assessment Impairments Problems/ Palpation Tenderness,Impaired Range of Motion,Impaired Impairmments Strength,Impaired Household Care,Impaired Desk/Computer Activities,Subjective C/O Pain,Impaired Self Care/Self Management Prognosis Rehab Potential Good Clinical Impression Consistent with Yes Diagnosis Additional details: Signs & symptoms most consistent with CTS (G56.03: Carpal tunnel syndrome, bilateral upper limbs) vs diabetic neuropathy. Special tests for the cervical spine were negative therefore not indicative of cervical radiculopathy. Short Term Goals Number of Weeks 3 Increase Strength Yes: Improve B human resources director strength to at least 70lb to assist with ADLs Decrease Subjective Yes: Improve pain at worst to 8/10 to improve overall C/O Pain QOL & sleep health Improve Self Care/ Yes Self Management Patient to be Ind w/ Yes HEP Telephone Diaphragm Assembler Goals Number of Weeks 6 Increase Range of Yes: Improve B wrist AROM to assist with fine motor Motion function for ADLs Increase Strength Yes: Improve B wrist MMT to 4+-5/5 grossly to assist with function Improve Ability For Yes: Improve human resources director strength to at least 80lbs B to Household Care assist with ADLs Decrease Subjective Yes: Improve pain at worst to 6/10 to improve overall C/O Pain QOL & sleep health Outpatient Therapy Plan of Care Treatment Plan May Include Therapeutic Exercise Yes Including Home Exercise Program Manual Therapy Yes Techniques Neuromuscular Re- Yes education Therapeutic Yes Activities to Return to Previous Functional/Work Level ADL/Self Care Yes Education Mechanical Traction Yes Dry Needling Yes Thermal Modalities Yes Electrical Yes Stimulation Ultrasound/ Yes Phonophoresis Massage Yes Group Therapy for Yes Medicare Eval/Re-Eval Yes Frequency Times per week 2 Duration Number of Weeks 4-6 Addendums This patient is a No candidate for social or vocational rehab ? Patient/Guardian Yes verbally acknowledges understanding of treatment program and consents to further treatment? Patient/Guardian Yes verbally acknowledges understanding of diagnosis, prognosis and goals for treatment? Eval Complexity PT Charges 26633 - Low Complexity Shoulder/Elbow Eval Shoulder Objective Measurements Elbow Objective Measurements PHYSICIAN CERTIFICATION: I certify the specified therapy services for Jani Chauhan are required, authorized, and reviewed every 30 days.
== END 2024-09-08 23:59 | disposition home or self-care (01) ==
LOC: PT 14:25
PROVIDERS: PCP Family Medicine; Visit Provider Family Medicine
DX: R20.0 Anesthesia of skin (principal); R20.2 Paresthesia of skin
CPT/HCPCS: 97161

== ENCOUNTER 2024-09-14 10:56 | Outpatient (CLI) | payer MEDICARE, MEDICAID, SELFPAY ==
--- OUTSIDE RECORDS SUMMARY | 2018-12-31 14:56 | XMS_ITS | Encounter Summary ---
Author Organization [place] [address] Care Team Providers Care Financial Assistance Specialist Name Role Phone Viridiana Oropeza MD Primary Care Provider [phone] Encounter Details Date Type Department Care Team (Latest Contact Info) Description 12/31/2018 1:56 PM [facility] Hospital Encounter [facility] Referral Lab 1 [place] [address] Fahad Kennedy MD [address] [place] [address] Pain in right hip Social History Tobacco Use Types Packs/Day Years Used Date Smoking Tobacco: Never Passive Smoke Exposure: Never Smokeless Tobacco: Never Alcohol Use Standard Drinks/Week Comments No 0 (1 standard drink = 0.6 oz pur e alcohol) [facility] Utilities Answer Date Recorded In the past 12 months has [employer] electric, gas, oil, or water company threatened to shut off services in your home? No 07/22/2024 Overall Financial Resource Strain (CARDIA) Answe r Date Recorded How hard is it for you to pa y for the very basics like food, housing, medical care, and heating? Not hard at all 07/22/2024 PHQ-2 Answer Date Recorded PHQ-2 Total Score 0 07/22/2024 [facility] [place] of Occupat ional Health - Occupational Stress Questionnaire Answer Date Recorded Do you feel stress - tense, restless, nervous, or anxious, or unable to sleep at night because your mind is troubled all the time - these days? Not at all 07/22/2024 Exercise Vital Sign Answer Date Recorde d On average, how many days pe r week do you engage in moderate to strenuous exercise (like a brisk walk)? 0 days 07/22/2024 On average, how many minutes do you engage in exercise at this level? 0 min 07/22/2024 Hunger Vital Sign Answer Date Recorded Within the past 12 months, y ou worried that your food would run out before you got the money to buy more. Never true 07/23/19 25 Within the past 12 months, t he food you bought just didn't last and you didn't have money to get more. Never true 07/22/2024 PRAPARE - Transportation Answer Date Re corded In the past 12 months, has l ack of transportation kept you from medical appointments or from getting medications? No 01/11 In the past 12 months, has l ack of transportation kept you from meetings, work, or from getting things needed for daily living? No 01/21/2020 [facility] IP Transportation Answer D ate Recorded In the past 12 months, has l ack of reliable transportation kept you from medical appointments, meetings, work or from getting things needed for daily living? 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 No / Unsure 06/30/2021 12:04 PM EDT documented as of this encounter Functional Status * Cognitive and Functional Status Question Answer Date of Assessment Author Is the person deaf or does he/she have serious difficulty hearing? No 03/23/2024 10:00 AM Kristi Mccullough Ma, CCMA Is the person blind or does he/she have serious difficulty seeing even when wearing glasses? No 03/23/2024 10:00 AM Kristi Mccullough Ma, CCMA Does this person have seriou s difficulty walking or climbing stairs? Yes 03/23/2024 10:00 AM Kristi Mccullough Ma, CCMA Does this person have difficulty dressing or bathing? No 03/23/2024 10:00 AM LENORA BalderramaKristi KEEGAN Mathew * Alcohol Screening Score Answer Date of Assessment Author 0 07/21/2024 10:04 PM Fidencio Vargas RN * Drug Screening Score Answer Date of Assessment Author 0 07/21/2024 10:04 PM Fidencio Vargas RN * Question Answer Date of Assessment Author How often do you have a drin k containing alcohol? 0 07/21/2024 10:04 PM Tanya Vargas RN How many drinks containing alcohol do you have on a typical day when you are drinking? 0 07/21/2024 10:04 PM Tanya Vargas RN How often do you have six or more drinks on one occasion? 0 07/21/2024 10:04 PM Tanya Vargas RN AUDIT-C to Determine Rows 4-10 0 07/21/2024 10:04 PM Tanya Vargas RN * Is the person deaf or does he/she have serious difficulty hearing? Answer Date of Assessment Author No 06/09/2018 12:00 PM Tiffany Shelton CCMA * Is the person blind or does he/she have serious difficulty seeing even when wearing glasses? Answer Date of Assessment Author No 06/09/2018 12:00 PM Tiffany Shelton CCMA * Does this person have serious difficulty walking or climbing stairs? Answer Date of Assessment Author No 06/09/2018 12:00 PM Tiffany Shelton CCMA * Does this person have difficulty dressing or bathing? Answer Date of Assessment Author No 06/09/2018 12:00 PM Tiffany Shelton CCMA * Because of a physical, mental or emotional condition, does this person have difficulty doing errands alone such as visiting a doctor's office or shopping? Answer Date of Assessment Author No 06/09/2018 12:00 PM Tiffany Shelton CCMA * Question Answer Date of Assessment Author Little interest or pleasure in doing things 0 07/22/2024 10:52 AM Aviva Bynum, KELLY Feeling down, depressed, or hopeless 0 07/22/2024 10:52 AM EDT Aviva Mcguire MSW PHQ-2 Total Score 0 07/22/2024 10:52 AM EDT Aviva Mcguire MSW * PHQ-9 Total Score Answer Date of Assessment Author 0 07/22/2024 10:52 AM EDT Tiffany Mcguire MSW * PHQ-2 Total Score Answer Date of Assessment Author 0 07/22/2024 10:52 AM EDT Tiffany Mcguire MSW * Question Answer Date of Assessment Author Feeling Nervous, Anxious, or on Edge 0 06/26/2023 11:33 AM EDT Kristi Balderrama Ma, CCMA Not Being Able to Stop or Control Worrying 0 06/26/2023 11:33 AM EDT Kristi Balderrama Ma CCMA Worrying too Much About Different Things 0 06/26/2023 11:33 AM EDT Kristi Balderrama Ma CCMA Trouble Relaxing 0 06/26/2023 11:33 AM EDT Kristi Balderrama CCMA Being so Restless That it is Hard to Sit Still 0 06/26/2023 11:33 AM EDT Kristi Balderrama Ma CCMA Becoming Easily Annoyed or Irritable 0 06/26/2023 11:33 AM EDT Kristi Balderrama Ma, CCMA Feeling Afraid as if Something Awful Might Happen 0 06/26/2023 11:33 AM EDT Kristi Balderrama CCMA MIGUEL-7 Total Score 0 06/26/2023 11:33 AM EDT Kristi Balderrama CCMA * Suicide Severity Rating Answer Date of Assessment Author No Risk 07/21/2024 4:08 PM EDT Genesis Dumont RN * [place] Suicide Severity Rating Scale (Q shift for moderate and high) Question Answer Date of Assessment Author 1. In the past month, have y ou wished you were or wished you could go to sleep and not wake up? 0 07/21/2024 4:08 PM EDT Genesis Lujan RN 2. In the past month, have y ou actually had any thoughts of killing yourself? (If no, skip to question 6) 0 07/21/2024 4:08 PM EDT Genesis Dumont RN 6. Have you ever done anythi ng, started to do anything, or prepared to do anything to end your life? 0 07/21/2024 4:08 PM EDT Genesis Yepez RN documented as of this encounter Mental Status * Cognitive and Functional Status Question Answer Entry Date Author Because of a physical, menta l or emotional condition, does this person have difficulty doing errands alone such as visiting a doctor's office or shopping? No 03/23/2024 10:00 AM Kristi Mccullough Ma, CCMA Because of a physical, menta l or emotional condition, does this person have serious difficulty concentrating, remembering or making decisions? No 03/23/2024 10:00 AM Kristi Mccullough Ma, CCMA * Because of a physical, mental or emotional condition, does this person have serious difficulty concentrating, remembering or making decisions? Answer Entry Date Author No 06/09/2018 12:00 PM EDT Tiffany Balderrama CCMA documented in this encounter Plan of Treatment Scheduled Orders Name Type Priority Associated Diagnoses Orde r Schedule C-REACTIVE PROTEIN Lab Routine Pain in right hip ONCE for 1 Occurrences starting 12/31/2018 until 02/04/2019 CBC WITH DIFF Lab Routine Pain in right hip ONCE for 1 Occurrences starting 12/31/2018 until 02/04/2019 SEDIMENTATION RATE AUTOMATED Lab Routine Pain in right hip ONCE for 1 Occurrences starting 12/31/2018 until 02/04/2019 documented as of this encounter Goals Goal Patient Goal Type Associated Problems Recent Progress Patient-Stated? Author Blood Pressure < 140/90 Blood Pressure 128/56(2024 9:08 AM EDT) No Julia Chicas, DAVID BMI (Calculated) < 30 General 41.9(07/22/19 9:49 PM EDT) No Julia Chicas, DAVID Maintain a healthy diet, exercise regularly and maintain an ideal body weight General No Kristi Balderrama CCMA HEMOGLOBIN A1C < 7.0 Result Component 6.4( 11:37 AM EDT) No Julia Chicas, DAVID documented as of this encounter Visit Diagnoses Diagnosis Pain in right hip Pain in joint, pelvic region and thigh documented in this encounter Additional Health Concerns Infection Onset Date Last Indicated Resolved Time R/O C-Diff 07/22/2024 07/22/2024 07/22/2024 1:25 PM EDT C-diff 07/22/2024 07/22/2024 documented as of this encounter Care Teams Financial Assistance Specialist Relationship Specialty Start Date End Date Viridiana Oropeza MD [address] [place] [address] PCP - General 01/19/09 09/14/24 documented as of this encounter
--- OUTSIDE RECORDS SUMMARY | 2024-07-20 10:30 | XMS_ITS | Encounter Summary ---
Author Organization [facility] Address 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, subsequent encounter Wilfredo Forte MD [address] [place] [phone] Phone: tel: fax: Referral ID Status Reason Start Date Expiration Date Visits Re quested Visits Authorized [id number] Closed 06/15/2024 12/15/2025 1 1 Encounter Details Date Type Department Care Team (Late st Contact Info) Description 07/20/2024 10:30 AM EDT Office Visit [address] [phone] Wilfredo Forte MD [address] [place] [phone] Infection of prosthetic joint, subsequent encounter (Primary [...] answer 05/04/2024 How often do you attend [facility] or mu-ism services? Patient unable to answer 05/04/2024 Do you belong to any clubs o r organizations such as yazdanism groups, unions, fraternal or athletic groups, or [...] Recorded Patient Health Questionnaire-2 Score 0 06/15/2024 [facility] [place] [facility] - Occupational Stress [...] any time in the past 12 m [facility], were you homeless or living in a correction (including now)? No 05/04/2024 Utilities Answer Date [...] difficulty ambulating in April. He went to [facility] for evaluation. They performed a CT scan that demonstrated a [id number] cm rim enhancing fluid collection involving the hip prosthesis. He was transferred to [facility] to the OR on 05/02/24 for [...] amoxicillin. He went to the ED at [facility] and he was taken off the [...] this prompting him to go to the [facility] 06/27/24. He was take off [...] 96.8(H) <=8.0 mg/L 07/20/2024 12:33 PM EDT [facility] Blood Venous blood specimen / Unknown Venipuncture / Unknown 07/20/2024 10:40 AM EDT 07/20/2024 10:40 AM EDT Narrative [facility] - 07/20/2024 12:33 PM EDT This CRP test is appropriate for assessment of infection, systemic inflammation and/or tissue injury. To assess cardiovascular disease risk order high sensitivity CRP (CRPH). us Wilfredo Forte MD LAB BLOOD ORDERABLES Final Re sult [facility] [address] [place] [address] * (ABNORMAL) Comprehensive Metabolic Panel, Plasma (07/20/2024 10:40 AM EDT) Glucose, Plasma 129(H) 74 - 99 mg/dL 07/20/2024 12:33 PM EDT [facility] BUN, Plasma 33(H) 8 - 23 mg/dL 07/20/2024 12:33 PM EDT [facility] Creatinine, Plasma 2.15(H) 0.70 - 1.20 mg/dL 07/20/2024 12:33 PM EDT [facility] BUN/Creatinine Ratio 15 07/20/2024 12:33 PM EDT [facility] Sodium, Plasma 137 136 - 145 mmol/L 07/20/2024 12:33 PM EDT [facility] Potassium, Plasma 4.4 3.6 - 4.9 mmol/L 07/20/2024 12:33 PM EDT [facility] Chloride, Plasma 104 97 - 107 mmol/L 07/20/2024 12:33 PM EDT [facility] CO2, Plasma 19(L) 22 - 29 mmol/L 07/20/2024 12:33 PM EDT [facility] Anion Gap 14 6 - 16 mmol/L 07/20/2024 12:33 PM EDT [facility] Total Calcium, Plasma 9.3 8.9 - 10.2 mg/dL 07/20/2024 12:33 PM EDT [facility] Total Protein 6.6 6.3 - 7.9 g/dL 07/20/2024 12:33 PM EDT [facility] Albumin, Plasma 3.5 3.5 - 5.2 g/dL 07/20/2024 12:33 PM EDT [facility] AST, Plasma 13 10 - 50 U/L 07/20/2024 12:33 PM EDT [facility] ALT, Plasma 13 10 - 50 U/L 07/20/2024 12:33 PM EDT [facility] Alkaline Phosphatase, Plasma 96 40 - 115 U/L 07/20/2024 12:33 PM EDT [facility] Total Bilirubin, Plasma <0.2(L) 0.2 - 1.1 mg/dL 07/20/2024 12:33 PM EDT [facility] eGFRcr 32.9 mL/min/1.7 3m*2 07/20/2024 12:33 PM EDT [facility] Comment:Reported eGFRcr in m L/min/1.73m2 is based the CKD-EPI 2020 equation that does not use a race coefficient. Blood Venous blood specimen / Unknown Venipuncture / Unknown 07/20/2024 10:40 AM EDT 07/20/2024 10:40 AM EDT us Wilfredo Forte MD LAB BLOOD ORDERABLES Final Re sult [facility] [address] [place] [address] * (ABNORMAL) CBC and Differential (07/20/2024 10:40 AM EDT) WBC Count 20.96(H) 3.70 - 10.30 10*3/uL LAB HEMATOLOGY METHOD 07/20/2024 2:54 PM EDT [facility] RBC Count 4.16(L) 4.60 - 6.10 10*6/uL LAB HEMATOLOGY METHOD 07/20/2024 2:54 PM EDT [facility] HGB 11.5(L) 13.7 - 17.5 g/dL LAB HEMATOLOGY METHOD 07/20/2024 2:54 PM EDT [facility] HCT 37.3(L) 40.0 - 51.0 % LAB HEMATOLOGY METHOD 07/20/2024 2:54 PM EDT [facility] Platelet Count 316 155 - 369 10*3/uL LAB HEMATOLOGY METHOD 07/20/2024 2:54 PM EDT [facility] MCV 90 79 - 98 fL LAB HEMATOLOGY METHOD 07/20/2024 2:54 PM EDT [facility] MCH 27.6 26.0 - 32.0 pg LAB HEMATOLOGY METHOD 07/20/2024 2:54 PM EDT [facility] MCHC 30.8 30.7 - 35.5 g/dL LAB HEMATOLOGY METHOD 07/20/2024 2:54 PM EDT [facility] RDW 15.5(H) 11.5 - 14.5 % LAB HEMATOLOGY METHOD 07/20/2024 2:54 PM EDT [facility] MPV 9.7 8.8 - 12.5 fL LAB HEMATOLOGY METHOD 07/20/2024 2:54 PM EDT [facility] nRBC 0.0 <=0.0 per 100 WBCs LAB HEMATOLOGY METHOD 07/20/2024 2:54 PM EDT [facility] Differential Type Automated LAB HEMATOLOGY METHOD 07/20/2024 2:54 PM EDT [facility] Neutrophils % 49 % LAB HEMATOLOGY METHOD 07/20/2024 2:54 PM EDT [facility] Lymphocytes % 37 % LAB HEMATOLOGY METHOD 07/20/2024 2:54 PM EDT [facility] Monocytes % 7 % LAB HEMATOLOGY METHOD 07/20/2024 2:54 PM EDT [facility] Eosinophils % 3 % LAB HEMATOLOGY METHOD 07/20/2024 2:54 PM EDT [facility] Basophils % 0 % LAB HEMATOLOGY METHOD 07/20/2024 2:54 PM EDT [facility] Immature Granulocytes % 4 % LAB HEMATOLOGY METHOD 07/20/2024 2:54 PM EDT [facility] Neutrophils Absolute 10.36(H) 1.60 - 6.10 10*3/uL LAB HEMATOLOGY METHOD 07/20/2024 2:54 PM EDT [facility] Lymphocytes Absolute 7.66(H) 1.20 - 3.90 10*3/uL LAB HEMATOLOGY METHOD 07/20/2024 2:54 PM EDT [facility] Monocytes Absolute 1.51(H) 0.30 - 0.90 10*3/uL LAB HEMATOLOGY METHOD 07/20/2024 2:54 PM EDT [facility] Eosinophils Absolute 0.61(H) 0.00 - 0.50 10*3/uL LAB HEMATOLOGY METHOD 07/20/2024 2:54 PM EDT [facility] Basophils Absolute 0.07 0.00 - 0.10 10*3/uL LAB HEMATOLOGY METHOD 07/20/2024 2:54 PM EDT [facility] Immature Granulocytes Absolute 0.75(H) 0.00 - 0.06 10*3/uL LAB HEMATOLOGY METHOD 07/20/2024 2:54 PM EDT [facility] Blood Venous blood specimen / Unknown Venipuncture / Unknown 07/20/2024 10:40 AM EDT 07/20/2024 10:40 AM EDT Narrative [facility] - 07/20/2024 2:54 PM EDT Therapeutic decision making should be based on absolute values, rather than percentages. us Wilfredo Forte MD LAB BLOOD ORDERABLES Final Re sult [facility] [address] [place] [address] documented in this encounter Visit Diagnoses Diagnosis [...] documented as of this encounter Care Teams Nanoscience Technician Relationship Specialty Start Date End Date Viridiana Oropeza MD [address] [place] [address] PCP - General 03/13/22 Gerardo Mcbride [address] [place] [address] 08/23/23 documented as of this encounter
--- OUTSIDE RECORDS SUMMARY | 2024-07-21 16:39 | XMS_ITS | Encounter Summary ---
Author Organization [place] [address] Care Team Providers Care Arrow Point Attacher Name Role Phone Viridiana Oropeza MD Primary Care Provider [phone] Pankaj Navarro MD Unavailable [phone] Reason for Visit * Reason Comments Abnormal Lab high wbc, referred d ue to possible hip infection after replacement * Auth/Cert/Inpt (Routine) Specialty Diagnoses / Procedures Referred By Contpedro t Referred To Contact Diagnoses ZAC (acute kidney injury) Referral ID Status Reason Start Date Expiration Date Visits Re quested Visits Authorized [id number] 1 1 Encounter Details Date Type Department Care Team (Latest Contact Info) Description 07/21/2024 4:39 PM EDT - 07/26/2024 4:06 PM EDT Hospital Encounter EDG 2B [place] [id number] Cat Jules MD [address] [place] [address] Anil Thompson DO [address] [place] [address] ZAC (acute kidney injury) (Primary Dx); Pancolitis (HCC) Discharge Disposition: Home or Self Care Social History Tobacco Use Types Packs/Day Years Used Date Smoking Tobacco: Never Passive Smoke Exposure: Never Smokeless Tobacco: Never Alcohol Use Standard Drinks/Week Comments No 0 (1 standard drink = 0.6 oz pur e alcohol) [facility] Utilities Answer Date Recorded In the past 12 months has Digital [employer], gas, oil, or water [employer] threatened to shut off services in your home? No 07/22/2024 Overall Financial Resource Strain (CARDIA) Answe r Date Recorded How hard is it for you to pa y for the very basics like food, housing, medical care, and heating? Not hard at all 07/22/2024 PHQ-2 Answer Date Recorded PHQ-2 Total Score 0 07/22/2024 [employer] [place] [employer] - Occupational Stress [...] things needed for daily living? No 01/21/2020 [facility] IP Transportation Answer D ate Recorded In [...] 4:08 PM EDT Genesis Dumont RN * Allison Suicide Severity Rating Scale (Q shift for [...] Thompson DO - 07/26/2024 1:18 PM EDT [facility] Patient Name: Jani Ingram : [...] Your Medications These medications were sent to [facility] [address] [place] [address] [place] [address] Hours: Saturday-Saturday 8:00am - 6:30pm vancomycin 125 mg Cap Condition at Discharge: good Disposition: Home Follow-up: [facility] [place] [address] [place] [address] Viridiana Oropeza MD [address] [facility] [address] [address] Follow up in 3 day(s) Hospital [...] Means Destination Comment s Home or Self [facility] documented in this encounter Progress Notes * KinmanRoxi CPhT - 07/26/2024 3:50 PM EDT Discharge Medication Delivery Service DMD photographic technician has delivered the following medications for Jani Ingram: Rx#[id number]:VANCOMYCIN 125 MG CAPSULE-125 mg EVERY 6 HOURS SCHEDULED Date/Time of Delivery: 07/26/2024 3:50 PM Delivered to: handed to son in Please contact DMD photographic technician with any questions. Thanks! 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 Monitor, adjust regimen as needed HTN: -BP stable 128/56 most recent -Not taking meds SECURITY OPERATIONS CENTER ANALYST -Monitor Obesity: -Complicates all aspects of care [...] Echo today. Safety precautions in place. 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 Monitor, adjust regimen as needed HTN: -BP stable 119/63 most recent -Not taking meds SECURITY OPERATIONS CENTER ANALYST -Monitor Obesity: -Complicates all aspects of care [...] Vancomycin x 10 days Had been on terminal make up operator Amoxicillin for presmed hip infection earlier in [...] orthopedics and ID service affiliated with in [place] Leukocytosis Likely secondary to C Diff colitis [...] -Renal/bladder u/s ordered DM, type II: -Hold SECUR[employer] OPER[employer] C[facility] ANALYST metformin -A1c 6.4 05/05 -BG stable, at goal 07/24 -SSI. 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 VTE Prophylaxis: Qualifying Pharmacologic Prophylaxis enoxaparin (LOVENOX) injection 40 mg 2 TIMES DAILY Active Hospital Problems Diagnosis *ZCA (acute kidney injury) C. difficile colitis Colitis [...] 1 mL 1 mL Injection PRN Victoria Gutéirrez APRN insulin aspart U-100 (NovoLOG) injection 1-5 [...] Vancomycin x 10 days Had been on terminal make up operator Amoxicillin for presmed hip infection earlier in [...] orthopedics and ID service affiliated with in [place] Leukocytosis Likely secondary to C Diff colitis [...] d/c plan is home with family support, [facility], and outpatient follow up with physicians. [...] or preferences. SW spoke to Dennis with [facility] and notified. HH orders in [facility]. No other d/c needs identified. SW/CC available should needs arise. * Nenita Hernandez RN - 07/24/2024 6:00 AM EDT Pt VSS, A/O x4, Pt having loose BMs, using urinal, PRN pain meds given 3x w/some relief, TUMS [id number] w/some relief, IV replaced, encouraged turns, [id number] on importance, ambulating w/walker and standby assist. [...] Vancomycin x 10 days Had been on terminal make up operator Amoxicillin for presmed hip infection earlier in [...] orthopedics and ID service affiliated with in [place] Leukocytosis Likely secondary to C Diff colitis [...] -Renal/bladder u/s ordered DM, type II: -Hold SECUR[employer] OPER[employer] C[facility] ANALYST metformin -A1c 6.4 05/05 -BG stable, at goal -SSI. 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 VTE Prophylaxis: Qualifying [...] >40 kg/m2. Thanks! Mariah Beasley PharmD * Mairah Beasley PharmD - 07/22/2024 6:39 PM EDT Patient: Jain Ingram , : 1955 07/22/2024 Test: Per [employer] Gram-Positive Nucleic Acid blood culture test, patient is reported to have Staphylococcus spp. with with no mecA, Marilynn, or vanB resistance markers in their blood in 1/2 cultures. Time test reported to pharmacy: 1829 Lab Caller / Pharmacy Pug Machine Operator: Mariah Nicolas / Rosalind Montero Action Taken: [...] IV atb's as ordered. * Aviva Mcguire, LOCKSTITCH LINING MAKER - 07/22/2024 10:52 AM EDT 07/22/24 1051 [...] for dc planning process Does patient need lang interpreter? No Activities of Daily Living Prior to [...] Discussed discharge plans with Care Team at [facility] Yes, with nurse in attendance;Yes, with doctor [...] Dr. Viridiana Oropeza. [facility] Pt states he can afford all his [...] d/c. Per Chart Review[facility] Res[facility] referral sent. Awaiting response. Pt [...] here for ZAC. Will initiate vancomycin therapy [id number] mg then intermittent/pulse dosing. Will draw vancomycin [...] Thompson DO - 07/22/2024 10:39 AM EDT [facility] History and Physical Name: Jani Ingram [...] 03/15/2017 CIRCUMCISION; Surgeon: Jameson Rodriguez MD; Location: [facility]; Service: Urology COLONOSCOPY COLONOSCOPY N/A 06/16/2015 COLONOSCOPY ; Surgeon: Pankaj Chavez MD; Location: [facility] END[facility]COPY; Service: Endoscopy HIP SURGERY Bilateral 1995 nasima hip repacements IR 2 LEVEL BILATERAL MEDIAL BRANCH BLOCK LUM SAC 02/18/2020 IR 2 LEVEL BILATERAL MEDIAL BRANCH BLOCK LUM SAC 02/18/2020 [facility] IMAGING SHOULDER ARTHROSCOPY Right 08/28/2016 RIGHT SHOULDER ARTHROSCOPIC ROTATOR CUFF REPAIR, DECOMPRESSION ACROMIOPLASTY ACROMIOCLAVICULAR JOINT EXCISION; Surgeon: Robbi Alvarez MD; Location: [facility]; Service: Orthopedics SHOULDER SURGERY Medications [...] (Patient not taking: Reported on 07/21/2024) Lancets [facility] Misc Check BS bid lisinopriL (PRINIVIL;ZESTRIL) 2.5 [...] true Transportation Needs: No Transportation Needs (07/22/2024) [facility] IP Transportation In the past 12 months, has lack of reliable transportation kept you from medical appointments, meetings, work or from getting things needed for daily living?: No Physical Activity: Inactive (07/22/2024) Exercise Vital Sign Days of Exercise per Week: 0 days Minutes of Exercise per Session: 0 min Stress: No Stress Concern Present (07/22/2024) [place] [place] [employer] - Occupational Stress Questionnaire Feeling of Stress : Not at all Social Connections: Patient Unable To Answer (05/04/2024) Received from [facility] Social Connection and Isolation Panel [NHANES] Frequency of Communication with Friends and Family: Patient unable to answer Frequency of Social Gatherings with Friends and Family: Patient unable to answer Attends Caodaism Services: Patient unable to answer Active Member of Clubs or Organizations: Patient unable to answer Attends Club or Organization Meetings: Patient unable to answer Marital Status: Patient unable to answer Intimate Partner Violence: Not At Risk (05/04/2024) Received from [facility] Humiliation, Afraid, Rape, and Kick questionnaire Fear of Current or Ex-Partner: No Emotionally Abused: No Physically Abused: No Sexually Abused: No Housing Stability: Low Risk (05/04/2024) Received from [facility] Housing Stability Vital Sign Unable to Pay [...] INGRAM Department: DEPID Room: 2211 Gender: Male Retaining Room Cutter: Karly : 1955 Requested By: LAMAR Hanson Order Number: [id number] Reading MD: Raul Gunter MD Measurements Intervals [place] Rate: 88 P: 40 MA: 170 QRS: 54 QRSD: 102 T: 50 [...] -Renal/bladder u/s ordered DM, type II: -Hold SECUR[employer] OPER[employer] CENTER ANALYST metformin -A1c 6.4 05/05 -SSI. Monitor, adjust regimen as needed HTN: -BP elevated 146/67 most recent -Not taking meds SECUR[employer] OPERATIONS CENTER ANALYST -Monitor Obesity: -Complicates all aspects of care D/w RN, charger, CC Code Status: Full Anil Thompson DO [...] was seen in the emergency room at [facility] on 06/27, the amoxicillin was discontinued. He [...] infection, treated by infectious disease service at [facility] in [place]. History of circumcision, colonoscopy, shoulder arthroscopy, shoulder [...] the vancomycin. The infectious disease service at [facility] had suggested amoxicillin for 3 months; however, [...] did discuss the case with the hospitalist public relations account supervisor, Dr. Thompson. I will follow the patient along with you and I appreciate the opportunity to see your patient. Chapo Calvin M.D. By: Brandon Job ID: [id number] Doc ID: [id number] documented in this encounter ED Notes * [...] NEEDED FOR MUSCLE SPASM 06/08/24 Taking Viridiana Oroepza MD acetaminophen 325 mg Oral Tab Take [...] 06/03/24 Not Taking Viridiana Oropeza MD Lancets [facility] Misc Check BS bid 04/02/24 Viridiana Oropeza [...] 03/15/2017 CIRCUMCISION; Surgeon: Jameson Rodriguez MD; Location: [facility]; Service: Urology COLONOSCOPY COLONOSCOPY N/A 06/16/2015 COLONOSCOPY ; Surgeon: Pankaj Chavez MD; Location: [facility]; Service: Endoscopy HIP SURGERY Bilateral 1995 nasima hip repacements IR 2 LEVEL BILATERAL MEDIAL BRANCH BLOCK LUM SAC 02/18/2020 IR 2 LEVEL BILATERAL MEDIAL BRANCH BLOCK LUM SAC 02/18/2020 [facility] IMAGING SHOULDER ARTHROSCOPY Right 08/28/2016 RIGHT SHOULDER ARTHROSCOPIC ROTATOR CUFF REPAIR, DECOMPRESSION ACROMIOPLASTY ACROMIOCLAVICULAR JOINT EXCISION; Surgeon: Robbi Alvarez MD; Location: [facility]; Service: Orthopedics SHOULDER SURGERY Review [...] difficulty ambulating in April. He went to [facility] for evaluation. They performed a CT scan that demonstrated a [id number] cm rim enhancing fluid collection involving the hip prosthesis. He was transferred to [facility] to the OR on 05/02/24 for [...] without final read as there is no [facility] radiologist available for review [...] admission here. He is agreeable. Discussed with harvesting contractor HUMPHREY (DEREK Isidro), who accepted patient to Dr. Thompson's service for further infection management and culture maturation. Patient also remains pending CT lower extremity final read. Condition at Discharge/Transfer from Department: Stable This chart was completed using voice recognition technology and may contain unintended errors Cat Jules MD 07/21/24 9470 documented in this encounter Miscellaneous Notes * [...] -Renal/bladder u/s ordered DM, type II: -Hold SECUR[employer] OPERATIONS CENTER ANALYST metformin -A1c 6.4 05/05 -BG stable, at goal -SSI. 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 VTE Prophylaxis: Qualifying [...] the vancomycin. The infectious disease service at [facility] had suggested amoxicillin for 3 months; however, [...] did discuss the case with the hospitalist public relations account supervisor, Dr. Thompson. I will follow the patient along with you and I appreciate the opportunity to see your patient . * Critical Result Value - Fabian Espinoza RN - 07/22/2024 4:21 PM EDT Jani Ingram [id number], 1955 07/22/2024 Test Name/Result: Blood Cultures/Gram + Cocci Time: 162 Caller/Pug Machine Operator: Sharee Mariee/Fabian Marcial RN R/V Action Taken: Communicated with provider via Secure Chat Time: 1624 Notified Physician/Physician Designee: Dr. Thompson * Utilization Review Notes - Korina Etienne RN - 07/22/2024 1:57 PM EDT PROPERTY SPECIALIST 07/22/2024 Pt was admitted as observation 07/21* [...] Oropeza. Pt states his pharmacy is the [facility] in [facility]. Pt states he can afford all his [...] d/c. Per Chart Review, [facility] Resumption referral sent. Awaiting response. Pt states [...] without final read as there is no [facility] radiologist available for review [...] GLUCOSE METER POC (07/26/2024 11:20 AM EDT) [facility] Glucose Meter POC 146(H) 70 - 100 mg/dL 07/26/2024 11:21 AM EDT [facility] Sample Type Capillary 07/26/2024 11:21 AM EDT [facility] Patient Status Non-Critical Patient 07/26/2024 11:21 AM EDT [facility] Blood BLOOD SPECIMEN / Unknown 07/26/2024 11:20 AM EDT 07/26/2024 11:21 AM EDT Anil Thompson DO POINT OF CARE TEST ORDERABLE S Final Result Performing Organization Address City/[facility]/ZIP Co de Phone Number [facility] [address] [place] [address] * GLUCOSE METER POC (07/26/2024 8:47 AM EDT) Glucose Meter POC 87 70 - 100 mg/dL 07/26/2024 8:48 AM EDT [facility] Sample Type Capillary 07/26/2024 8:48 AM EDT [facility] Patient Status Non-Critical Patient 07/26/2024 8:48 AM EDT [facility] Blood BLOOD SPECIMEN / Unknown 07/26/2024 8:47 AM EDT 07/26/2024 8:48 AM EDT us Anil Thompson DO POINT OF CARE TEST ORDERABLE S Final Result Performing Organization Address [facility]/ZIP Co de Phone Number [facility] [address] [place] [address] * ECG AND WAVEFORMS - TELEMETRY (07/26/2024 7:58 AM EDT) [facility] ECG INTERPRET Sinus with IVCD [facility] 07/26/2024 7:58 AM EDT Narrative [facility] - 07/26/2024 8:03 AM EDT EH - ROUTINE MA 0.20 QRS 0.11 RR 0.88 QT 0.37 QTc 0.39 See Clinical Report link for waveform capture us Unknown Provider POINT OF CARE CARDIOLOGY Final Result Performing Organization Address City/[facility]/ZIP Co de Phone Number [facility] [address] [place], [place] [id number] * (ABNORMAL) CBC WITH DIFF (07/26/2024 6:09 [...] 7:44 AM EDT [facility] [place] Percent 6.1 % 07/26/2024 7:44 AM EDT [...] 07/26/2024 7:44 AM EDT [facility] Comment:Automated count of m etamyelocytes, myelocytes and promyelocytes. An absolute IG <0.1 is reported as 0.0. Lymph # 4.9(H) 1.2 - 3.9 x10(3)/[facility] 07/26/2024 7:44 AM EDT [facility] [place] # 0.7 0.3 - 0.9 x10(3)/[facility] 07/26/2024 7:44 AM EDT [facility] Eos# 0.5 0.0 - 0.5 x10(3)/[facility] 07/26/2024 7:44 AM EDT [facility] Baso # 0.0 0.0 - 0.1 x10(3)/[facility] 07/26/2024 7:44 AM EDT [facility] Blood VENOUS BLOOD / Unknown Venipuncture / Unknown 07/26/2024 6:09 AM EDT 07/26/2024 7:29 AM EDT us Anil Thompson DO HEMATOLOGY ORDERABLES Final Result [facility], [address], [place] [address] * (ABNORMAL) GLUCOSE METER POC (07/25/2024 9:53 PM EDT) [facility] Glucose Meter POC 137(H) 70 - 100 mg/dL 07/25/2024 9:55 PM EDT [facility] Sample Type Capillary 07/25/2024 9:55 PM EDT [facility] Patient Status Non-Critical Patient 07/25/2024 9:55 PM EDT [facility] Blood BLOOD SPECIMEN / Unknown 07/25/2024 9:53 PM EDT 07/25/2024 9:55 PM EDT us Anil Thompson DO POINT OF CARE TEST ORDERABLE S Final Result [facility] [address] [place] [address] * GLUCOSE METER POC (07/25/2024 5:22 PM EDT) Pathologist [facility] Glucose Meter POC 100 70 - 100 mg/dL 07/25/2024 5:23 PM EDT [facility] Sample Type Capillary 07/25/2024 5:23 PM EDT [facility] Patient Status Non-Critical Patient 07/25/2024 5:23 PM EDT [facility] Blood BLOOD SPECIMEN / Unknown 07/25/2024 5:22 PM EDT 07/25/2024 5:23 PM EDT Anil Thompson DO POINT OF CARE TEST ORDERABLE S Final Result [facility] [address] [place] [address] * EC ECHOCARDIOGRAM LIMITED (07/25/2024 2:20 PM EDT) [facility] LV DIASTOLIC PLAX 5.2 cm PYRAMIS Ejection [...] - 100 mg/dL 07/25/2024 11:36 AM EDT [facility] Sample Type Capillary 07/25/2024 11:36 AM EDT [facility] Patient Status Non-Critical Patient 07/25/2024 11:36 AM EDT [facility] Blood BLOOD SPECIMEN / Unknown 07/25/2024 11:34 AM EDT 07/25/2024 11:36 AM EDT Anil Thompson DO POINT OF CARE TEST ORDERABLE S Final Result Performing Organization Address City/[facility]/ZIP Co de Phone Number [facility] [address] [place], [place] [id number] * ECG AND WAVEFORMS - TELEMETRY (07/25/2024 8:04 AM EDT) [facility] ECG INTERPRET NSR [facility] 07/25/2024 8:04 AM EDT Narrative [facility] - 07/25/2024 8:06 AM EDT EH - ROUTINE MA 0.20 QRS 0.11 RR 0.88 QT 0.37 QTc 0.39 See Clinical Report link for waveform capture us Unknown Provider POINT OF CARE CARDIOLOGY Final Result Performing Organization Address City/[facility]/ZIP Co de Phone Number [facility] [address] [place] [address] * (ABNORMAL) GLUCOSE METER POC (07/25/2024 7:38 AM EDT) Glucose Meter POC 107(H) 70 - 100 mg/dL 07/25/2024 7:40 AM EDT [facility] Sample Type Capillary 07/25/2024 7:40 AM EDT [facility] Patient Status Non-Critical Patient 07/25/2024 7:40 AM EDT [facility] Blood BLOOD SPECIMEN / Unknown 07/25/2024 7:38 AM EDT 07/25/2024 7:40 AM EDT us Anil Thompson DO POINT OF CARE TEST ORDERABLE S Final Result [facility] [address] [place], [place] [id number] * (ABNORMAL) CBC WITH DIFF (07/25/2024 6:23 [...] Percent 45.2 % 07/25/2024 7:56 AM EDT [facility] Comment:Neutrophils equals s egs plus bands Imm Gran% 1.1 % 07/25/2024 7:56 AM EDT [facility] Comment:Automated count of m etamyelocytes, myelocytes and promyelocytes. IG >1% represents a left shift and provides an early indication of an infection or inflammatory process. Lymph Percent 42.6 % 07/25/2024 7:56 AM EDT [facility] [place] Percent 5.8 % 07/25/2024 7:56 AM EDT [facility] Eos Percent 4.9 % 07/25/2024 7:56 AM EDT [facility] Baso Percent 0.4 % 07/25/2024 7:56 AM EDT [facility] Neut # 5.5 1.6 - 6.1 x10(3)/[facility] 07/25/2024 7:56 AM EDT [facility] Comment:Neutrophils equals s egs plus bands IMMGRAN# 0.1 0.0 - 0.1 x10(3)/[facility] 07/25/2024 7:56 AM EDT [facility] Comment:Automated count of m etamyelocytes, myelocytes and promyelocytes. An absolute IG <0.1 is reported as 0.0. Lymph # 5.2(H) 1.2 - 3.9 x10(3)/[facility] 07/25/2024 7:56 AM EDT [facility] [place] # 0.7 0.3 - 0.9 x10(3)/[facility] 07/25/2024 7:56 AM EDT [facility] Eos# 0.6(H) 0.0 - 0.5 x10(3)/[facility] 07/25/2024 7:56 AM EDT [facility] Baso # 0.1 0.0 - 0.1 x10(3)/[facility] 07/25/2024 7:56 AM EDT [facility] Blood VENOUS BLOOD / Unknown Venipuncture / Unknown 07/25/2024 6:23 AM EDT 07/25/2024 7:43 AM EDT Anil Thompson DO HEMATOLOGY ORDERABLES Final Result [facility] [address] [facility] , [place] [address] * (ABNORMAL) BASIC METABOLIC PANEL (07/25/2024 6:23 AM EDT) Sodium 141 136 - 145 mmol/L 07/25/2024 8:18 AM EDT [facility] Potassium 4.3 3.5 - 5.0 mmol/L 07/25/2024 8:18 AM EDT [facility] Chloride 108(H) 98 - 107 mmol/L 07/25/2024 8:18 AM EDT [facility] Total CO2 23 22 - 29 mmol/L [...] recommended by the National Kidney Foundation - [place] [employer] of Nephrology Task Force. Blood VENOUS BLOOD / Unknown Venipuncture / Unknown 07/25/2024 6:23 AM EDT 07/25/2024 7:43 AM EDT Anil L Thompson DO CHEMISTRY ORDERABLES Final R esult Performing Organization Address City/[facility]/ZIP Co de Phone Number [facility] [employer] [email or web address] [address] [facility], [place] [address] * (ABNORMAL) GLUCOSE METER POC (07/24/2024 9:23 PM EDT) Glucose Meter POC 149(H) 70 - 100 mg/dL 07/24/2024 9:25 PM EDT [facility] Sample Type Capillary 07/24/2024 9:25 PM EDT [facility] Patient Status Non-Critical Patient 07/24/2024 9:25 PM EDT [facility] Blood BLOOD SPECIMEN / Unknown 07/24/2024 9:23 PM EDT 07/24/2024 9:25 PM EDT Anil Thompson DO POINT OF CARE TEST ORDERABLE S Final Result Performing Organization Address [facility] [facility] Co de Phone Number [facility] [address] [place] [address] * ECG AND WAVEFORMS - TELEMETRY (07/24/2024 7:43 PM EDT) [facility] ECG INTERPRET Sinus Rhythm w/ First Degree AVB [facility] 07/24/2024 7:43 PM EDT Narrative [facility] - 07/24/2024 9:03 PM EDT 1ST DEGREE AVB SG MA 0.23 QRS 0.10 RR 0.72 QT 0.33 QTc 0.39 See Clinical Report link for waveform capture us Unknown Provider POINT OF CARE CARDIOLOGY Final Result Performing Organization Address [facility]/ZIP Co de Phone Number [facility] [address] [place] [address] * (ABNORMAL) GLUCOSE METER POC (07/24/2024 5:08 PM EDT) Glucose Meter POC 107(H) 70 - 100 mg/dL 07/24/2024 5:10 PM EDT [facility] Sample Type Capillary 07/24/2024 5:10 PM EDT [facility] Patient Status Non-Critical Patient 07/24/2024 5:10 PM EDT [facility] Blood BLOOD SPECIMEN / Unknown 07/24/2024 5:08 PM EDT 07/24/2024 5:10 PM EDT Anil Thompson DO POINT OF CARE TEST ORDERABLE S Final Result Performing Organization Address [facility]/[place] [address] * (ABNORMAL) GLUCOSE METER POC (07/24/2024 12:58 PM EDT) Glucose Meter POC 125(H) 70 - 100 mg/dL 07/24/2024 12:59 PM EDT [facility] Sample Type Capillary 07/24/2024 12:59 PM EDT [facility] Patient Status Non-Critical Patient 07/24/2024 12:59 PM EDT [facility] Blood BLOOD SPECIMEN / Unknown 07/24/2024 12:58 PM EDT 07/24/2024 12:59 PM EDT Anil Thompson POINT OF CARE TEST ORDERABLE S Final Result Performing Organization Address [facility] [place] [address] * (ABNORMAL) GLUCOSE METER POC (07/24/2024 8:07 AM EDT) Glucose Meter POC 107(H) 70 - 100 mg/dL 07/24/2024 8:08 AM EDT [facility] Sample Type Capillary 07/24/2024 8:08 AM EDT [facility] Patient Status Non-Critical Patient 07/24/2024 8:08 AM EDT [facility] Blood BLOOD SPECIMEN / Unknown 07/24/2024 8:07 AM EDT 07/24/2024 8:08 AM EDT us Anil Thompson DO POINT OF CARE TEST ORDERABLE S Final Result [facility] [address] [place] [address] * (ABNORMAL) CBC WITH DIFF (07/24/2024 [...] 07/24/2024 7:29 AM EDT [facility] [place] Percent 5.3 % 07/24/2024 7:29 AM EDT [facility] Eos Percent 6.0 % 07/24/2024 7:29 AM EDT [facility] Baso Percent 0.3 % 07/24/2024 7:29 AM EDT [facility] Neut # 5.9 1.6 - 6.1 x10(3)/[facility] 07/24/2024 7:29 AM EDT [facility] Comment:Neutrophils equals s egs plus bands IMMGRAN# 0.2(H) 0.0 - 0.1 x10(3)/mcL 07/24/2024 7:29 AM EDT [facility] Comment:Automated count of m etamyelocytes, myelocytes and promyelocytes. An absolute IG <0.1 is reported as 0.0. Lymph # 5.0(H) 1.2 - 3.9 x10(3)/[facility] 07/24/2024 7:29 AM EDT [facility] [place] # 0.7 0.3 - 0.9 x10(3)/[facility] 07/24/2024 7:29 AM EDT [facility] Eos# 0.8(H) 0.0 - 0.5 x10(3)/mcL 07/24/2024 7:29 AM EDT [facility] Baso # 0.0 0.0 - 0.1 x10(3)/[facility] 07/24/2024 7:29 AM EDT [facility] Blood VENOUS BLOOD / Unknown Venipuncture / Unknown 07/24/2024 6:31 AM EDT 07/24/2024 7:16 AM EDT us Anil Thompson DO HEMATOLOGY ORDERABLES Final Result [facility] [address] [facility] , [place] [address] * (ABNORMAL) BASIC METABOLIC PANEL (07/24/2024 6:31 AM EDT) Sodium 140 136 - 145 mmol/L 07/24/2024 7:56 AM EDT [facility] Potassium 4.0 3.5 - 5.0 mmol/L 07/24/2024 7:56 AM EDT [facility] Chloride 110(H) 98 - 107 mmol/L 07/24/2024 7:56 AM EDT [facility] Total CO2 19(L) 22 - 29 mmol/L 07/24/2024 7:56 AM EDT [facility] Anion Gap 11 7 - 16 mmol/L 07/24/2024 7:56 AM EDT [facility] Calcium 8.9 8.8 - 10.4 mg/dL 07/24/2024 7:56 AM EDT [facility] Glucose Lvl 95 70 - 99 mg/dL 07/24/2024 7:56 AM EDT [facility] BUN 15 8 - 23 mg/dL 07/24/2024 7:56 AM EDT [facility] Creatinine 1.44(H) 0.67 - 1.30 mg/dL 07/24/2024 7:56 AM EDT [facility] eGFR (CKD-EPIcr 2020) 53(L) >=60 mL/min/1.7 3 m2 07/24/2024 7:56 AM EDT [facility] Comment:Estimated GFR was ca lculated using the CKD-EPIcr (2020) equation refit without race. The equation is recommended by the National Kid[employer] Foundation - [place] [employer] of Nephrology Task Force. Blood VENOUS BLOOD / Unknown Venipuncture / Unknown 07/24/2024 6:31 AM EDT 07/24/2024 7:16 AM EDT us Anil Thompson DO CHEMISTRY ORDERABLES Final R esult [facility] [address] [facility] , [place] [address] * GLUCOSE METER POC (07/24/2024 12:22 AM EDT) Glucose Meter POC 91 70 - 100 mg/dL 07/24/2024 12:24 AM EDT [facility] Sample Type Capillary 07/24/2024 12:24 AM EDT [facility] Patient Status Non-Critical Patient 07/24/2024 12:24 AM EDT [facility] Blood BLOOD SPECIMEN / Unknown 07/24/2024 12:22 AM EDT 07/24/2024 12:24 AM EDT Anil Thompson DO POINT OF CARE TEST ORDERABLE S Final Result Performing Organization Address City/[facility]/ZIP Co de Phone Number [facility] [address] [place] [address] * ECG AND WAVEFORMS - TELEMETRY (07/23/2024 7:05 PM EDT) ECG INTERPRET NSR [facility] 07/23/2024 7:05 PM EDT Narrative [facility] - 07/23/2024 8:21 PM EDT ROUTINE/1stAVB/af MA 0.22 QRS 0.10 RR 0.77 QT 0.45 QTc 0.51 See Clinical Report link for waveform capture us Unknown Provider POINT OF CARE CARDIOLOGY Final Result Performing Organization Address City/[facility]/ZIP Co de Phone Number [facility] [address] [place] [address] * (ABNORMAL) GLUCOSE METER POC (07/23/2024 6:50 PM EDT) Glucose Meter POC 154(H) 70 - 100 mg/dL 07/23/2024 6:52 PM EDT [facility] Sample Type Capillary 07/23/2024 6:52 PM EDT [facility] Patient Status Non-Critical Patient 07/23/2024 6:52 PM EDT [facility] Blood BLOOD SPECIMEN / Unknown 07/23/2024 6:50 PM EDT 07/23/2024 6:52 PM EDT Anil Thompson DO POINT OF CARE TEST ORDERABLE S Final Result Performing Organization Address City/[facility]/ZIP Co de Phone Number [facility] [address] [place] [address] * GLUCOSE METER POC (07/23/2024 2:30 PM EDT) [facility] Signature Glucose Meter POC 99 70 - 100 mg/dL 07/23/2024 2:32 PM EDT [facility] Sample Type Capillary 07/23/2024 2:32 PM EDT [facility] Patient Status Non-Critical Patient 07/23/2024 2:32 PM EDT [facility] Blood BLOOD SPECIMEN / Unknown 07/23/2024 2:30 PM EDT 07/23/2024 2:32 PM EDT Anil Thompson DO POINT OF CARE TEST ORDERABLE S Final Result Performing Organization Address [facility]/ZIP Co de Phone Number [facility] [address] [place] [address] * (ABNORMAL) CBC WITH DIFF (07/23/2024 8:10 [...] 07/23/2024 9:28 AM EDT [facility] RDW 15.6(H) <=14.9 % 07/23/2024 9:28 AM EDT [facility] Platelet 256 155 - 369 x10(3)/mcL 07/23/2024 9:28 AM EDT [facility] MPV 10.0 8.8 - 12.5 fL 07/23/2024 9:28 AM EDT [facility] Neut Percent 57.5 % 07/23/2024 9:28 AM EDT [facility] Comment:Neutrophils equals s egs plus bands Imm Gran% 1.2 % 07/23/2024 9:28 AM EDT [facility] Comment:Automated count of m etamyelocytes, myelocytes and promyelocytes. IG >1% represents a left shift and provides an early indication of an infection or inflammatory process. Lymph Percent 31.8 % 07/23/2024 9:28 AM EDT [facility] [place] Percent 4.9 % 07/23/2024 9:28 AM EDT [facility] Eos Percent 4.4 % 07/23/2024 9:28 AM EDT [facility] Baso Percent 0.2 % 07/23/2024 9:28 AM EDT [facility] Neut # 9.6(H) 1.6 - 6.1 x10(3)/mcL 07/23/2024 9:28 AM EDT [facility] Comment:Neutrophils equals s egs plus bands IMMGRAN# 0.2(H) 0.0 - 0.1 x10(3)/mcL 07/23/2024 9:28 AM EDT [facility] Comment:Automated count of m etamyelocytes, myelocytes and promyelocytes. An absolute IG <0.1 is reported as 0.0. Lymph # 5.3(H) 1.2 - 3.9 x10(3)/mcL 07/23/2024 9:28 AM EDT [facility] [place] # 0.8 0.3 - 0.9 x10(3)/mcL 07/23/2024 9:28 AM EDT [facility] Eos# 0.7(H) 0.0 - 0.5 x10(3)/mcL 07/23/2024 9:28 AM EDT [facility] Baso # 0.0 0.0 - 0.1 x10(3)/mcL 07/23/2024 9:28 AM EDT [facility] Blood VENOUS BLOOD / Unknown Venipuncture / Unknown 07/23/2024 8:10 AM EDT 07/23/2024 8:21 AM EDT us Chapo Calvin MD HEMATOLOGY ORDERABLES Final Result [facility] [address] [facility] , [place] [address] * (ABNORMAL) COMPREHENSIVE METABOLIC PANEL (07/23/2024 8:10 [...] gm/dL 07/23/2024 9:14 AM EDT [facility] Bili Total 0.2 0.2 - 1.4 mg/dL 07/23/2024 9:14 AM EDT [facility] ALT 6 <=41 U/L 07/23/2024 9:14 AM EDT [facility] AST 10 <=40 U/L 07/23/2024 9:14 AM EDT [facility] Alk Phos 82 40 - 129 U/L 07/23/2024 9:14 AM EDT [facility] eGFR (CKD-EPIcr 2020) 45(L) >=60 mL/min/1.7 3 m2 07/23/2024 9:14 AM EDT [facility] Comment:Estimated GFR was ca lculated using the CKD-EPIcr (2020) equation refit without race. The equation is recommended by the National Kidney Foundation - [place] [employer] Nephrology Task Force. Blood VENOUS BLOOD / Unknown Venipuncture / Unknown 07/23/2024 8:10 AM EDT 07/23/2024 8:21 AM EDT us Chapo Calvin MD CHEMISTRY ORDERABLES Final R esult Performing Organization Address City/[facility]/ZIP Co de Phone Number [address] , [place] [address] * BLOOD CULTURE (NO STAIN) (07/23/2024 8:10 AM EDT) Culture Result No Growth at 120 hours. BLOOD CULTURE (NO STAIN) 07/28/2024 9:00 AM EDT [facility] Blood VENOUS BLOOD / Unknown Venipuncture / Unknown 07/23/2024 8:10 AM EDT 07/23/2024 8:20 AM EDT us Chapo Calvin MD MICROBIOLOGY - GENERAL ORDER ARJUN Final Result Performing Organization Address City/[facility]/ZIP Co de Phone Number [facility] [address] [facility] , [address] [place] [phone] * BLOOD CULTURE (NO STAIN) (07/23/2024 8:10 AM EDT) Culture Result No Growth at 120 hours. BLOOD CULTURE (NO STAIN) 07/28/2024 9:00 AM EDT [facility] Blood VENOUS BLOOD / Unknown Venipuncture / Unknown 07/23/2024 8:10 AM EDT 07/23/2024 8:20 AM EDT Chapo Calvin MD MICROBIOLOGY - GENERAL ORDER ARJUN Final Result Performing Organization Address [facility]/ZIP Co de Phone Number [facility] [employer] [facility] [address] [facility] , [place] [id number] * (ABNORMAL) C-REACTIVE PROTEIN (07/23/2024 8:10 AM EDT) Pathologist [facility] CRP 94.55(H) <=5.00 mg/L 07/23/2024 12:34 PM EDT [facility] [employer] [facility] Blood VENOUS BLOOD / Unknown Venipuncture / Unknown 07/23/2024 8:10 AM EDT 07/23/2024 8:21 AM EDT us Cahpo Calvin MD CHEMISTRY ORDERABLES Final R esult Performing Organization Address City/[facility]/ZIP Co de Phone Number [facility] [address] [facility] [facility] , [place] [address] * (ABNORMAL) SEDIMENTATION RATE AUTOMATED (07/23/2024 8:10 AM EDT) Sed Rate 39(H) 0 - 20 mm/hr 07/23/2024 9:28 AM EDT [facility] [employer] Blood VENOUS BLOOD / Unknown Venipuncture / Unknown 07/23/2024 8:10 AM EDT 07/23/2024 8:21 AM EDT us Chapo Calvin MD HEMATOLOGY ORDERABLES Final Result Performing Organization Address City/[facility] Co de Phone Number [facility] [employer] , [place] [address] * (ABNORMAL) CREATINE KINASE (07/23/2024 8:10 AM EDT) [facility] CK 13(L) 39 - 308 U/L 07/23/2024 12:34 PM EDT [facility] [employer] [facility] Blood VENOUS BLOOD / Unknown Venipuncture / Unknown 07/23/2024 8:10 AM EDT 07/23/2024 8:21 AM EDT us Chapo Calvin MD CHEMISTRY ORDERABLES Final R esult Performing Organization Address [facility] Co de Phone Number [facility] [employer] , [place] [address] * ECG AND WAVEFORMS - TELEMETRY (07/23/2024 7:30 AM EDT) [facility] ECG INTERPRET NSR [facility] 07/23/2024 7:30 AM EDT Narrative [facility] - 07/23/2024 7:51 AM EDT [place] ROUTINE/1ST DEG MA 0.22 QRS 0.09 RR 0.71 QT 0.35 See Clinical Report link for waveform capture us Unknown Provider POINT OF CARE CARDIOLOGY Final Result Performing Organization Address [facility] Co de Phone Number [facility] [address] [place] [address] * (ABNORMAL) GLUCOSE METER POC (07/23/2024 6:32 AM EDT) [facility] Glucose Meter POC 102(H) 70 - 100 mg/dL 07/23/2024 6:33 AM EDT [facility] Sample Type Capillary 07/23/2024 6:33 AM EDT [facility] Patient Status Non-Critical Patient 07/23/2024 6:33 AM EDT [facility] Blood BLOOD SPECIMEN / Unknown 07/23/2024 6:32 AM EDT 07/23/2024 6:33 AM EDT us Anil Thompson DO POINT OF CARE TEST ORDERABLE S Final Result Performing Organization Address City/[facility]/ZIP Co de Phone Number [facility] [address] [place] [address] * GLUCOSE METER POC (07/23/2024 12:08 AM EDT) Glucose Meter POC 94 70 - 100 mg/dL 07/23/2024 12:12 AM EDT [facility] Sample Type Capillary 07/23/2024 12:12 AM EDT [facility] Patient Status Non-Critical Patient 07/23/2024 12:12 AM EDT [facility] Blood BLOOD SPECIMEN / Unknown 07/23/2024 12:08 AM EDT 07/23/2024 12:12 AM EDT us Anil Thompson DO POINT OF CARE TEST ORDERABLE S Final Result Performing Organization Address [facility]/ZIP Co de Phone Number [facility] [address] [place] [address] * ECG AND WAVEFORMS - TELEMETRY (07/22/2024 7:05 PM EDT) [facility] Signature ECG INTERPRET NSR [facility] 07/22/2024 7:05 PM EDT Narrative [facility] - 07/22/2024 8:02 PM EDT ROUTINE/af MA 0.20 QRS 0.10 RR 0.72 QT 0.43 QTc 0.51 See Clinical Report link for waveform capture us Unknown Provider POINT OF CARE CARDIOLOGY Final Result Performing Organization Address City/[facility]/ZIP Co de Phone Number [facility] [address] [place], [place] [id number] * (ABNORMAL) GLUCOSE METER POC (07/22/2024 5:53 PM EDT) Glucose Meter POC 105(H) 70 - 100 mg/dL 07/22/2024 5:54 PM EDT [facility] Sample Type Capillary 07/22/2024 5:54 PM EDT [facility] Patient Status Non-Critical Patient 07/22/2024 5:54 PM EDT [facility] Blood BLOOD SPECIMEN / Unknown 07/22/2024 5:53 PM EDT 07/22/2024 5:54 PM EDT Anil Thompson POINT OF CARE TEST ORDERABLE S Final Result Performing Organization Address City/[facility]/ZIP Co de Phone Number [facility] [address] [place] [address] * (ABNORMAL) GLUCOSE METER POC (07/22/2024 2:21 PM EDT) Glucose Meter POC 137(H) 70 - 100 mg/dL 07/22/2024 2:22 PM EDT [facility] Sample Type Capillary 07/22/2024 2:22 PM EDT [facility] Patient Status Non-Critical Patient 07/22/2024 2:22 PM EDT [facility] Blood BLOOD SPECIMEN / Unknown 07/22/2024 2:21 PM EDT 07/22/2024 2:22 PM EDT us Anil Thompson DO POINT OF CARE TEST ORDERABLE S Final Result Performing Organization Address [facility]/ZIP Co de Phone Number [facility] [address] [place] [address] * (ABNORMAL) C DIFF INTERPRETATION (07/22/2024 12:04 [...] 07/22/2024 12:11 PM EDT Narrative [facility] - 07/22/2024 1:41 PM EDT Toxin producing C diff target DNA sequences detected. Toxins A/B positive. CDI likely. Consider initiation of severity-based CDI therapy according to CDI management guidance. Anil Thompson DO MICROBIOLOGY - GENERAL ORDER ARJUN Final Result Performing Organization Address City/[facility] Co de Phone Number [facility], [address] , [place] [address] * C DIFF GDH AG AND TOXIN A+B (07/22/2024 12:04 PM EDT) Stool RECTUM STRUCTURE / Unknown 07/22/2024 12:04 PM EDT 07/22/2024 12:11 PM EDT Anil Thompson DO MICROBIOLOGY - GENERAL ORDER ARJUN Final Result Performing Organization Address [facility] Co de Phone Number [facility] [employer], [address] , [address] [place] [phone] * OVA AND PARASITE BASIC (07/22/2024 12:04 PM EDT) Pathologist [facility] [place] Giardia Lamblia Antigen Not Detected Not detected 07/22/2024 6:39 PM EDT [facility] Cryptosporidium Exam Not Detected Not Detected 07/22/2024 6:39 PM EDT [facility] Stool RECTUM STRUCTURE / Unknown 07/22/2024 12:04 PM EDT 07/22/2024 12:11 PM EDT Anil Thompson DO MICROBIOLOGY - GENERAL ORDER ARJUN Final Result Performing Organization Address City/[facility] Co de Phone Number [facility] [employer], [address] , [place] [address] * SHIGA TOXIN (07/22/2024 12:04 PM EDT) Shiga Toxin Shiga toxins (produced by E. coli) not detected. Shiga toxins (produced by E. coli) not detected. 07/23/2024 5:08 PM EDT [employer] Stool RECTUM STRUCTURE / Unknown 07/22/2024 12:04 PM EDT 07/22/2024 9:23 PM EDT Anil Thompson DO MICROBIOLOGY - GENERAL ORDER ARJUN Final Result Performing Organization Address City/[facility] Co de Phone Number [facility] [address] [place] [address] , [place] [address] * STOOL CULTURE (NO STAIN) (07/22/2024 12:04 PM EDT) Pathologist [facility] [place] Culture No growth of enteric pathogens, including Salmonella, Shigella, Campylobacter, Vibrio, Yersinia, Aeromonas, Plesiomonas, or E. coli O157. 07/24/2024 7:50 AM EDT [facility] [employer] Stool RECTUM STRUCTURE / Unknown 07/22/2024 12:04 PM EDT 07/22/2024 12:11 PM EDT Anil Thompson DO MICROBIOLOGY - GENERAL ORDER ARJUN Final Result Performing Organization Address [facility] Co de Phone Number [facility] [employer] [address] , [place] [address] * C DIFF TOXIN DNA (07/22/2024 12:04 PM EDT) Stool RECTUM STRUCTURE / Unknown 07/22/2024 12:04 PM EDT 07/22/2024 12:11 PM EDT Anil Thompson DO MICROBIOLOGY - GENERAL ORDER ARJUN Final Result Performing Organization Address City/[facility] Co de Phone Number [employer] [address] , [place] [address] * US RENAL AND BLADDER [...] evaluation of the kidneys and bladder with telesales representative images and lead teacher notes sent to PACS for radiologist review. [...] sonographic evaluation of the kidneys andbladder with telesales representative images and lead teacher notes sent to PACS forradiologist review. FINDINGS: [...] - 100 mg/dL 07/22/2024 10:06 AM EDT [facility] Sample Type Capillary 07/22/2024 10:06 AM EDT [facility] Patient Status Non-Critical Patient 07/22/2024 10:06 AM EDT [facility] Blood BLOOD SPECIMEN / Unknown 07/22/2024 10:05 AM EDT 07/22/2024 10:06 AM EDT Anil Thompson DO POINT OF CARE TEST ORDERABLE S Final Result [facility] [address] [place] [id number] * ECG AND WAVEFORMS - TELEMETRY (07/22/2024 7:00 AM EDT) [facility] Signature ECG INTERPRET NSR [facility] 07/22/2024 7:00 AM EDT Narrative [facility] - 07/22/2024 11:03 AM EDT VR, ROUTINE MA 0.20 QRS 0.10 RR 0.79 QT 0.37 QTc 0.41 See Clinical Report link for waveform capture us Unknown Provider POINT OF CARE CARDIOLOGY Final Result [facility] [address] [place] [address] * (ABNORMAL) GLUCOSE METER POC (07/22/2024 6:59 AM EDT) Glucose Meter POC 115(H) 70 - 100 mg/dL 07/22/2024 7:00 AM EDT [facility] Sample Type Capillary 07/22/2024 7:00 AM EDT [facility] Patient Status Non-Critical Patient 07/22/2024 7:00 AM EDT [facility] Blood BLOOD SPECIMEN / Unknown 07/22/2024 6:59 AM EDT 07/22/2024 7:00 AM EDT Anil Thompson DO POINT OF CARE TEST ORDERABLE S Final Result [facility] [address] [place], [place] [id number] * (ABNORMAL) BASIC METABOLIC PANEL (07/22/2024 4:45 [...] recommended by the National [employer] - [place] [employer] Nephrology Task Force. Blood VENOUS BLOOD / Unknown Venipuncture / Unknown 07/22/2024 4:45 AM EDT 07/22/2024 5:07 AM EDT us Anil Thompson DO CHEMISTRY ORDERABLES Final R esult [facility] [email or web address] [address] [facility] , [address] [place] [phone] * (ABNORMAL) CBC (07/22/2024 4:45 AM EDT) [...] fL 07/22/2024 6:40 AM EDT [facility] Blood VENOUS BLOOD / Unknown Venipuncture / Unknown 07/22/2024 4:45 AM EDT 07/22/2024 5:07 AM EDT Nury Mcdermott APRN HEMATOLOGY ORDERABLES Final R esult [facility] [address] , [address] [place] [id number] * VANCOMYCIN LEVEL (07/22/2024 4:45 AM EDT) [facility] Vanco Random 14.6 mcg/mL 07/22/2024 5:44 AM EDT [facility] Blood VENOUS BLOOD / Unknown Venipuncture / Unknown 07/22/2024 4:45 AM EDT 07/22/2024 5:07 AM EDT Cat Jules MD CHEMISTRY ORDERABLES Final Result Performing Organization Address City/[facility]/ZIP Co de Phone Number [facility] [address] [facility] [facility] , [place] [address] * (ABNORMAL) GLUCOSE METER POC (07/21/2024 11:35 PM EDT) [facility] Glucose Meter POC 102(H) 70 - 100 mg/dL 07/21/2024 11:36 PM EDT [facility] Sample Type Capillary 07/21/2024 11:36 PM EDT [facility] Patient Status Non-Critical Patient 07/21/2024 11:36 PM EDT [facility] Blood BLOOD SPECIMEN / Unknown 07/21/2024 11:35 PM EDT 07/21/2024 11:36 PM EDT Anil Thompson DO POINT OF CARE TEST ORDERABLE S Final Result [facility] [address] [place] [id number] * ECG AND WAVEFORMS - TELEMETRY (07/21/2024 10:57 PM EDT) [facility] ECG INTERPRET NSR [facility] 07/21/2024 10:5 7 PM EDT Narrative [facility] - 07/21/2024 10:59 PM EDT ROUTINE/af MA 0.18 QRS 0.09 RR 0.71 QT 0.37 QTc 0.44 See Clinical Report link for waveform capture us Unknown Provider POINT OF CARE CARDIOLOGY Final Result Performing Organization Address City/[facility]/ZIP Co de Phone Number [facility] [address] [place] [address] * URINE CULTURE (NO STAIN) (07/21/2024 6:04 PM EDT) [facility] Culture Multiple bacterial species isolated from urine consistent with urogenital commensal organisms. 07/23/2024 3:11 AM EDT [facility] Urine STRUCTURE OF URINARY TRACT PROPER / Unknown 07/21/2024 6:04 PM EDT 07/21/2024 6:17 PM EDT us Cat Jules MD MICROBIOLOGY - GENERAL ORD ERABLES Final Result Performing Organization Address City/[facility]/ZIP Co de Phone Number [facility] [address] [facility], [place] [address] * EXTRA BE URINE CX (07/21/2024 6:04 PM EDT) Urine STRUCTURE OF URINARY TRACT PROPER / Unknown 07/21/2024 6:04 PM EDT 07/21/2024 6:09 PM EDT us Cat Jules MD MICROBIOLOGY - GENERAL ORD ERABLES Final Result Performing Organization Address City/[facility]/ZIP Co de Phone Number [facility] [address] [place] [address] * (ABNORMAL) URINALYSIS REFLEX (07/21/2024 6:04 PM EDT) UA Color Yellow 07/21/2024 6:17 PM EDT [facility] UA Appear Clear Clear 07/21/2024 6:17 PM [...] 07/21/2024 6:17 PM EDT [facility] UA Urobilinogen Normal <=1 mg/dL 6:17 PM [...] ORDERABLES Final Res ult [facility], [address] , [place] [address] * (ABNORMAL) C-REACTIVE PROTEIN (07/21/2024 5:42 PM EDT) Pathologist [facility] [place] CRP 77.53(H) <=5.00 mg/L 07/21/2024 6:35 PM EDT [facility] Blood VENOUS BLOOD / Unknown Venipuncture / Unknown 07/21/2024 5:42 PM EDT 07/21/2024 5:51 PM EDT Cat Jules MD CHEMISTRY ORDERABLES Final Result [facility] [address] , [place] [address] * (ABNORMAL) PROCALCITONIN (07/21/2024 5:42 PM EDT) [facility] Procalcitonin 0.50(H) <=0.49 ng/mL 07/21/2024 6:35 PM EDT [facility] Blood VENOUS BLOOD / Unknown Venipuncture / Unknown 07/21/2024 5:42 PM EDT 07/21/2024 5:51 PM EDT Narrative [facility] - 07/21/2024 6:35 PM EDT Procalcitonin <0.50 [...] CHEMISTRY ORDERABLES Final Result Performing Organization Address [facility] Co de Phone Number [facility] [address] [facility], [place] [address] * LACTIC ACID (07/21/2024 5:42 PM EDT) Lactic Acid 1.2 0.5 - 1.9 mmol/L 07/21/2024 5:59 PM EDT [facility] Blood VENOUS BLOOD / Unknown Venipuncture / Unknown 07/21/2024 5:42 PM EDT 07/21/2024 5:45 PM EDT Cat Jules MD CHEMISTRY ORDERABLES Final Result Performing Organization Address [facility] de Phone Number [facility] [address] [place] [address] * XR CHEST AP PORTABLE [...] Result [facility] [address] [facility] , [place] [address] * BLOOD CULTURE (NO STAIN) (07/21/2024 4:58 PM EDT) Culture Result No Growth at 120 hours. BLOOD CULTURE (NO STAIN) 07/26/2024 6:00 PM EDT [facility] Blood VENOUS BLOOD / Unknown Venipuncture / Unknown 07/21/2024 4:58 PM EDT 07/21/2024 5:02 PM EDT Cat Jules MD MICROBIOLOGY - GENERAL ORD ERABLES Final Result [facility] [address] [facility] , [place] [address] * (ABNORMAL) BLOOD CULTURE (NO STAIN) (07/21/2024 4:58 PM EDT) Culture Result Positive Growth(AA) BLOOD CULTURE (NO STAIN) 07/26/2024 11:54 AM EDT [facility] Culture Result Growth of Staphylococcus xylosus SUSCEPTIBI LITY RESULT 07/26/2024 11:54 AM EDT [facility] Blood VENOUS BLOOD / Unknown Venipuncture / [...] ORD ERABLES Final Result Performing Organization Address [facility]/ZIP Co de Phone Number [facility] [address] , [place] [address] * (ABNORMAL) SEDIMENTATION RATE AUTOMATED (07/21/2024 4:01 PM EDT) [facility] Signature Sed Rate 58(H) 0 - 20 mm/hr 07/21/2024 4:51 PM EDT [facility] Blood VENOUS BLOOD / Unknown Venipuncture / Unknown 07/21/2024 4:01 PM EDT 07/21/2024 4:07 PM EDT Cat Jules MD HEMATOLOGY ORDERABLES Jaimee l Result Performing Organization Address City/[facility]/ZIP Co de Phone Number [facility] [address] , [place] [address] * (ABNORMAL) GLUCOSE METER POC (07/21/2024 4:01 PM EDT) Glucose Meter POC 129(H) 70 - 100 mg/dL 07/21/2024 4:03 PM EDT [facility] Sample Type Venous 07/21/2024 4:03 PM EDT [facility] Patient Status Non-Critica l Patient 07/21/2024 4:03 PM EDT [facility] Blood BLOOD SPECIMEN / Unknown 07/21/2024 4:01 PM EDT 07/21/2024 4:03 PM EDT us Lab Test POINT OF CARE TEST ORDERABLES Fi nal Result [facility] [address] [place] [address] * (ABNORMAL) COMPREHENSIVE METABOLIC PANEL (07/21/2024 4:01 PM EDT) Sodium 136 136 - 145 mmol/L 07/21/2024 4:24 PM EDT [facility] Potassium 4.8 3.5 - 5.0 mmol/L 07/21/2024 4:24 PM EDT [facility] Chloride 103 98 - 107 mmol/L 07/21/2024 4:24 PM EDT [facility] Total CO2 19(L) 22 - 29 mmol/L 07/21/2024 4:24 PM EDT [facility] Anion Gap 14 7 - 16 mmol/L 07/21/2024 4:24 PM EDT [facility] Calcium 8.9 8.8 - 10.4 mg/dL 07/21/2024 4:24 PM EDT [facility] Glucose Lvl 139(H) 70 - 99 mg/dL 07/21/2024 4:24 PM EDT [facility] BUN 32(H) 8 - 23 mg/dL 07/21/2024 4:24 PM EDT [facility] Creatinine 2.08(H) 0.67 - 1.30 mg/dL 07/21/2024 4:24 PM EDT [facility] Albumin 3.5 3.2 - 4.6 gm/dL 07/21/2024 4:24 PM EDT [facility] Total Protein 6.6 6.4 - 8.3 gm/dL 07/21/2024 4:24 PM EDT [facility] Bili Total <0.2(L) 0.2 - 1.4 mg/dL 07/21/2024 4:24 PM EDT [facility] ALT 8 <=41 U/L 07/21/2024 4:24 PM EDT [facility] AST 11 <=40 U/L 07/21/2024 4:24 PM EDT [facility] Alk Phos 96 40 - 129 U/L 07/21/2024 4:24 PM EDT [facility] eGFR (CKD-EPIcr 2020) 34(L) >=60 mL/min/1.7 3 m2 07/21/2024 4:24 PM EDT [facility] Comment:Estimated GFR was ca lculated using the CKD-EPIcr (2020) equation refit without race. The equation is recommended by the [employer] - [place] [employer]ph[employer] Task Force. Blood VENOUS BLOOD / Unknown Venipuncture / Unknown 07/21/2024 4:01 PM EDT 07/21/2024 4:07 PM EDT us Cat Jules MD CHEMISTRY ORDERABLES Final Result [place] [id number] * (ABNORMAL) CBC WITH DIFF (07/21/2024 4:01 PM EDT) WBC 18.4(H) 3.7 - 10.3 x10(3)/mc L 07/21/2024 5:45 PM EDT [facility] RBC 4.20(L) 4.60 - 6.10 x10(6)/mc L 07/21/2024 5:45 PM EDT [facility] Hgb 11.8(L) 13.7 - 17.5 g/dL 07/21/2024 5:45 PM EDT [facility] Hct 37.3(L) 40.0 - 51.0 % 07/21/2024 5:45 PM EDT [facility] MCV 88.8 80.0 - 100.0 fL 07/21/2024 5:45 PM EDT [facility] MCH 28.1 26.0 - 34.0 pg 07/21/2024 5:45 PM EDT [facility] MCHC 31.6 30.7 - 35.5 g/dL 07/21/2024 5:45 PM EDT [facility] RDW 15.3(H) <=14.9 % 07/21/2024 5:45 PM EDT [facility] Platelet 321 155 - 369 x10(3)/mc L 07/21/2024 5:45 PM EDT [facility] MPV 9.7 8.8 - 12.5 fL 07/21/2024 5:45 PM EDT [facility] Segs 38 % 07/21/2024 5:45 PM [...] 5:45 PM EDT [facility] [place] # 1.5(H) 0.3 - 0.9 x10(3)/mc L [...] Slight 07/21/2024 5:45 PM EDT [email or web address] [place] [facility] Occasional 07/21/2024 5:45 PM EDT [email or web address] Blood VENOUS BLOOD / Unknown Venipuncture / Unknown 07/21/2024 4:01 PM EDT 07/21/2024 4:07 PM EDT us Cat Jules MD HEMATOLOGY ORDERABLES Jaimee rodriges Result [email or web address] [address] [facility], [address] [place] [id number] [facility] [address] [place], [place] [id number] documented in this encounter Visit Diagnoses Diagnosis ZAC (acute kidney injury)- Primary Acute kidney failure, unspecified ZAC (acute kidney injury) Acute kidney failure, unspecified Pancolitis (HCC) [place] ulcerative (chronic) colitis Stage 3 chronic kidney [...] Uriostegui RN) 0836 (Given - Provider: Francoise Uriostegui RN) 0912 (Given - Provider: Vianney Doyle [...] Nenita Hernandez RN)2110 (Given - Provider: Nenita Hernandez RN) 0448 [...] prior to IVPB or blood product administration. 2593 (Given - Provider: Nenita Hernandez, DAVID)9949 (Given - Provider: Nenita Hernandez RN) sterile [...] documented as of this encounter Care Teams [place] Attacher Relationship Specialty Start Date End Date Viridiana Oropeza MD [address] [place] [address] PCP - General 01/19/09 09/14/24 Pankaj Navarro MD [address] [place] [id number] Physician Otolaryngology 09/18/23 documented as of this encounter
[2024-09-14 15:09] LABS: Hematocrit 34.7 % (42.0-52.0); Hemoglobin 10.8 g/dL (14.1-18.0); Immature Granulocytes % 0.2 %; Mean Corpuscular HGB Conc 31.1 g/dL (31.8-35.4); Mean Corpuscular Hemoglobin 28.9 pg (27.0-31.2); Mean Corpuscular Volume 92.8 fl (80-94); Nucleated Red Blood Cells % 0 %; Platelet Count 247 K/mm3 (142-424); Red Blood Count 3.74 M/mm3 (4.60-6.20); Red Cell Distribution Width-SD 62.2 fL; White Blood Count 11.4 K/mm3 (4.8-10.8)
[2024-09-14 15:36] LABS: Alanine Aminotransferase 12 U/L (12-78); Albumin Level 4.1 g/dl (3.5-5.0); Albumin/Globulin Ratio 1.8 (1.1-1.8); Alkaline Phosphatase 87 U/L (38-126); Anion Gap 14.5 mEq/L (5-15); Aspartate Amino Transferase 19 U/L (17-59); Bilirubin,Total 0.4 mg/dl (0.2-1.3); Blood Urea Nitrogen 18 mg/dl (9-20); Calcium 9.8 mg/dl (8.4-10.2); Carbon Dioxide 25 mmol/L (22.0-30.0); Chloride 108 mmol/L (98-107); Creatinine,Serum 1.50 mg/dl (0.66-1.25); Estimated Glomerular Filt Rate 47 ml/min (>60); GFR (African American) 56 ML/MIN (>60); Globulin 2.3 g/dL (1.3-3.2); Glucose 96 mg/dl (74-100); Magnesium 1.4 mg/dl (1.6-2.3); Potassium 5.5 mmoL/L (3.5-5.1); Sodium 142 mmol/L (136-145); Total Protein,Serum 6.4 g/dl (6.3-8.2)
[2024-09-14 16:02] LABS: C-Reactive Protein 1.3 mg/L (0-4)
[2024-09-14 16:09] LABS: Prostate Specific Ag, Diagnost 0.347 ng/ml (0.0-4.0)
[2024-09-14 16:28] LABS: Vitamin B12 367 pg/mL (239-931)
[2024-09-14 16:53] LABS: Total Cells Counted 100
[2024-09-14 16:55] LABS: RBC Morphology Normal
--- OUTSIDE RECORDS SUMMARY | 2024-09-15 12:37 | XMS_ITS | Encounter Summary ---
Author Organization [place] [address] Care Team Providers Care Family Services Specialist Name Role Phone Viridiana Oropeza MD Primary Care Provider [phone] Pankaj Navarro MD Unavailable [phone] Reason for Visit * Reason Onset Date Comments Refill 08/07/2024 Oxycodone - refi ll Encounter Details Date Type Department Care Team (Late Contact Info) Description 08/07/2024 Telephone [facility] [address] [place] [address] Viridiana Oropeza MD [address] [place] [address] Refill (Oxycodone - refill ) Social History Tobacco Use Types Packs/Day Years Used Date Smoking Tobacco: Never Passive Smoke Exposure: Never Smokeless Tobacco: Never Alcohol Use Standard Drinks/Week Comments No 0 (1 standard drink = 0.6 oz pur e alcohol) [facility] Utilities Answer Date Recorded In the past 12 months has [employer], gas, oil, or water [employer] threatened to shut off services in your home? No 07/22/2024 Overall Financial Resource Strain (CARDIA) Answe r Date Recorded How hard is it for you to pa y for the very basics like food, housing, medical care, and heating? Not hard at all 07/22/2024 PHQ-2 Answer Date Recorded PHQ-2 Total Score 0 07/22/2024 [facility] [place] of Occupat ional Health - Occupational Stress [...] things needed for daily living? No 01/21/2020 [facility] IP Transportation Answer D ate Recorded In [...] Sawyer LPN - 08/07/2024 8:40 AM EDT Pharmacy:[id number] - [place] [address] [phone] [phone] Controlled Contract Updated / Signed 08/17/2022- [facility] Informed Consent Updated / Signed 08/17/2022 [...] w/ prescribing provider: 09/16/24 Pharmacy & Location: [facility] [id number] [place] [address] [phone] - Return Method of Communication: N/A Additional [...] documented as of this encounter Care Teams Family Services Specialist Relationship Specialty Start Date End Date Viridiana Oropeza MD [address] [place] [address] PCP - General 01/19/09 09/14/24 Pankaj Navarro MD [address] [place], [place] [id number] Physician Otolaryngology 09/18/23 documented as of this encounter
--- OUTSIDE RECORDS SUMMARY | 2024-09-15 12:37 | XMS_ITS | Encounter Summary ---
Author Organization [place] [address] Care Team Providers Care Oracle Wms Consultant Name Role Phone iVridiana Oropeza MD Primary Care Provider [phone] Pankaj Navarro MD Unavailable [phone] Reason for Visit * Reason Onset Date Comments Hospital Follow Up 07/28/2024 Encounter Details Date Type Department Care Team (Late st Contact Info) Description 07/28/2024 Patient Outreach SEP Care Managment [facility] Marco Antonio Moya Ethan. [address] Appointment Location May Differ [place] [id number] Lexis Kahn RN Hospital Follow Up Social History Tobacco Use Types Packs/Day Years Used Date Smoking Tobacco: Never Passive Smoke Exposure: Never Smokeless Tobacco: Never Alcohol Use Standard Drinks/Week Comments No 0 (1 standard drink = 0.6 oz pur e alcohol) [facility] Utilities Answer Date Recorded In the past 12 months has [employer]idge electric, gas, oil, or water company threatened to shut off services in your home? No 07/22/2024 Overall Financial Resource Strain (CARDIA) Answe r Date Recorded How hard is it for you to pa y for the very basics like food, housing, medical care, and heating? Not hard at all 07/22/2024 PHQ-2 Answer Date Recorded PHQ-2 Total Score 0 07/22/2024 [facility] - Occupational Stress [...] things needed for daily living? No [facility]21/2020 [facility] IP Transportation Answer D ate Recorded In [...] can return call to Lexis Kahn RN [employer] Worker Care Management Team [facility] [phone] documented in this encounter Plan of Treatment [...] documented as of this encounter Care Teams Oracle Wms Consultant Relationship Specialty Start Date End Date Viridiana Oropeza MD [address] [place] [address] PCP - General 01/19/09 09/14/24 Pankaj Navarro MD [address] [place] [address] [address] [place] [address] Physician Otolaryngology 09/18/23 documented as of this encounter
--- OUTSIDE RECORDS SUMMARY | 2024-09-15 12:37 | XMS_ITS | Clinical Summary ---
Author Organization [facility] Address [address] [place] [address] Phone Care Team Providers Care Bounty Trapper Name Role Phone Pankaj Navarro MD Unavailable [phone] Allergies Active Allergy Reactions Criticality Noted Date Comments Empagliflozin Hives Medium 02/07/2018 Hives, bad dreams Hives, bad dreams Hives, bad dreams Medications cholecalciferol, vitamin D3, 25 mcg (1,000 unit) Oral Tablet Take 1 Tab by mouth daily. Active Blood Sugar Diagnostic Misc Strip Check BS bid 50 Each 11 5 Active Blood-Glucose Meter Misc Kit Check BS bid 1 Kit 5 Active Lancets Misc Misc Check BS bid 50 Each 11 5 Active acetaminophen 325 mg Oral Tab Take 650 mg by mouth every 8 hours. 5 Active metFORMIN (GLUCOPHAGE) 1,000 mg Oral TabletIndication s:Hyperlipidemia associated with type 2 diabetes mellitus (HCC) Take 1 Tablet by mouth 2 times daily. 180 Tablet 1 5 Active hydroCHLOROthiaz elio 25 mg Oral Tablet Take 1 Tablet by mouth daily. 30 Tablet 5 Active Additional Information Patient not taking.Reason: Pt electing to not take the medication, Reported on 07/21/2024 tiZANidine (ZANAFLEX) 4 mg Oral TabletIndication s:Spondylosis of lumbosacral spine without myelopathy TAKE 1 TABLET BY MOUTH THREE TIMES A DAY NEEDED FOR MUSCLE SPASM 90 Tablet 5 5 Active rosuvastatin (CRESTOR) 10 mg Oral TabletIndication s:Type 2 diabetes mellitus without complication, without long-term current use of insulin (HCC) Take 1 Tablet by mouth nightly. 90 Tablet 1 5 Active Additional Information Patient not taking.Reason: Pt electing to not take the medication, Reported on 07/21/2024 lisinopriL (PRINIVIL;ZESTRI L) 2.5 mg Oral TabletIndication s:Type 2 diabetes mellitus without complication, without long-term current use of insulin (HCC) Take 1 Tablet by mouth daily. 90 Tablet 1 5 Active Additional Information Patient not taking.Reason: Therapy Completed, Reported on 07/21/2024 tamsulosin (FLOMAX) 0.4 mg Oral Capsule 0.4 mg daily. Active triamcinolone (KENALOG) 0.1 % Top CreamIndications :Dermatitis Apply topically 2 times daily. Take a 2 week break after each 2 weeks of use. 80 g 2 5 Active Additional Information Patient not taking.Reason: Therapy Completed, Reported on 07/21/2024 cetirizine (ZYRTEC) 10 mg Oral Tablet Take 1 Tablet by mouth daily as needed for Allergies. 30 Tablet 5 Active Additional Information Patient not taking.Reason: Therapy Completed, Reported on 07/21/2024 famotidine (PEPCID) 20 mg Oral Tablet Take 1 Tablet by mouth daily as needed for Other (allergic rash). 30 Tablet 5 Active oxyCODONE-acetam inophen (PERCOCET) 10-325 mg Oral TabletIndication s:Chronic pain syndrome TAKE 1 TABLET BY MOUTH EVERY 8 HOURS NEEDED FOR CHRONIC PAIN 90 Tablet 5 Active Active Problems Patient Care Coordination No te Formatting of this note migh t be different from the original. Pharmacy:[id number] [place] [address] [address] [phone] Controlled Contract Updated / Signed 08/17/2022- [facility] Informed Consent Updated / Signed 08/17/2022 UDS 06/22/2024 - as expected Omid as expected 06/22/2024 Care gap audit completed by eKerthi Wisdom RN on 09/24/2023. Problem Noted Date [...] 09/21/2015 Hyperlipidemia associated with type 2 diabetes m ellitus 08/12/2015 Type 2 diabetes mellitus with hyperglycemia 01/11 Overview (10/07/2017): Dx 12/26, A1c 6.9. OA (osteoarthritis) 12/23/2009 Overview (10/30/2019): Dr. Valle Failed mobic, celebrex, tramadol, cymbalta, neurontin Dr. Hathaway Resolved Problems Problem Noted Date Diagnosed Date Resolved Date Sepsis 09/02/2023 01/06/2024 Sialadenitis 08/29/2023 01/06/2024 Sepsis with acute hypoxic respiratory failure 08/28/19 24 03/23/2024 Cervicalgia 03/25/2018 10/30/2019 Multiple joint pain 03/25/2018 05/15/19 23 Myofascial pain 03/25/2018 01/06/2024 Chronic left shoulder pain 10/07/2017 0 05/14/2022 Umbilical hernia without obs truction and without gangrene 07/09/2017 01/06/2024 Status post total hip replacement, right 03/04/2015 01/06/2024 Status post total hip replacement, left 03/04/2015 01/06/2024 Obesity 05/09/2010 05/14/2022 Encounters Date Type Department Care Team Description 09/15/2024 Patient Outreach SEP [facility] [address] [place] [phone] Viridiana Oropeza MD Central Patient Navigator Outreach (AWV Questionnaire) 08/07/2024 Telephone [facility] [address] [place] [phone] Viridiana Oropeza MD Refill (Oxycodone - refill ) 07/30/2024 Patient Outreach [facility] Care Managment [facility] Marco Antonio Moya [address]. [address] [place] [address] Wen Ayers, DAVID - Telephonic Outreach; Hospital Follow Up 07/28/2024 Patient Outreach SEP Care Managment [facility] Marco Antonio [address]oya [address]. [address] [address] Lexis Kahn RN Hospital Follow Up 07/21/2024 4:39 PM EDT - 07/26/2024 4:06 PM EDT Hospital Encounter [address] [place] [address] Cat Jules MD Buchanan, Jamie L, DO ZAC (acute kidney injury) (Primary Dx); Pancolitis (HCC) Discharge Disposition: Home or Self Care 07/21/2024 Travel 07/07/[address] [address] Viridiana Oropeza MD Refill (Percocet refill request) 06/27/2024 10:42 AM EDT - 06/27/2024 12:11 [place] [address] Mango Carvajal MD Allergic drug rash (Primary Dx) Discharge Disposition: Home or Self Care 06/27/2024 Travel 06/23/2024 Results Follow-Up [address] [address] Lucia Dunlap PA-C COMPLIANCE OPIOID PANEL QUANT ONLY, URINE 06/23/2024 Telephone [facility] [address] [place] [address] Viridiana Oropeza MD Relaying Information (Pt [...] ) 06/22/2024 11:30 AM EDT Office Visit [facility] [address] [place] [address] Viridiana Oropeza MD Dermatitis (Primary Dx); Chronic pain syndrome; DDD (degenerative disc disease), cervical; Medication monitoring encounter; 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 [address] Ruslan Campuzano MD Peripheral edema (Primary Dx); Hypertension, unspecified type; Stage 3 chronic kidney disease, unspecified whether stage 3a or 3b CKD (HCC) Discharge Disposition: Home or Self Care 06/18/2024 Travel 06/17/2024 Telephone [facility] [address] [place] [address] Viridiana Oropeza MD Other from Last 3 Months Immunizations Immunization Administration [...] COLONOSCOPY ; Surgeon: Pankaj Chavez MD; Location: [facility] ENDOSCOPY; Service: Endoscopy HIP SURGERY 02/11/1995 - 02/11/1996 Bilateral nasima hip repacements SHOULDER ARTHROSCOPY 08/28/2016 Right RIGHT SHOULDER ARTHROSCOPIC ROTATOR CUFF REPAIR, DECOMPRESSION ACROMIOPLASTY ACROMIOCLAVICULAR JOINT EXCISION; Surgeon: Robbi Alvarez MD; Location: ED MAIN OR; Service: Orthopedics SHOULDER SURGERY CIRCUMCISION [...] meds times 6 months Hyperlipidemia associated wi type 2 diabetes mellitus (HCC) 08/12/2015 Hyperlipidemia [...] th e electric, gas, oil, or water Riskalyze threatened to shut off services in your home? No 07/22/2024 Overall Financial Resource Strain (CARDIA) Answe r Date Recorded How hard is it for you to pa y for the very basics like food, housing, medical care, and heating? Not hard at all 07/22/2024 PHQ-2 Answer Date Recorded PHQ-2 Total Score 0 07/22/2024 [facility] Occupat ional Health - Occupational Stress [...] things needed for daily living? No 01/21/2020 [facility] IP Transportation Answer D ate Recorded [...] 07/21/2024 9:49 PM EDT Plan of Treatment Health Maintenance Due Date Last Done Comments Cologuard 2001 FIT 2001 Sigmoidoscopy 2001 Virtual Colonography 2001 Zoster (1 of 2) 2006 RSV or 60+ (1 - Risk 60-74 years 1-dose series) 2016 COVID-19 Vaccine (3 - season) 2023 03/27/2023, 08/17/2021 DTaP/TDaP/Td (2 - Td or Tdap) 08/25/2024 08/25/2014 Wellness Exam Medicare 10/01/2024 10/01/2023, 2022 Influenza Vaccine (#1) 2024 , 03/27/2023, 02/21/2022, Additional history exists Hemoglobin A1c 11/02/2024 05/02/2024, 04/12, 04/28/2024, Additional history exists Colon Cancer Screening 06/15/2025 Colonoscopy 06/15/2025 06/16/2015 Diabetic Eye Exam 06/25/2025 06/26/2023, 11/19/2017 Kidney Health: eGFR 07/25/2025 07/25/2024, 07/24/2024, 07/23/2024, Additional history exists Kidney Health: uACR 08/17/2025 08/17/2024, 06/26/2023, 11/20/2021, Additional history exists Lipids 08/17/2025 08/17/2024, 12/13, 10/01/2023, Additional history exists Hepatitis C Screening Completed [...] Pressure 128/56(2024 9:08 AM EDT) No Julia Chicas RN BMI (Calculated) < 30 General 41.9(07/22/19 9:49 PM EDT) No Julia Chicas, DAVID Maintain a healthy diet, exercise regularly and maintain an ideal body weight General No Kristi Balderrama CCMA HEMOGLOBIN A1C < 7.0 Result Component 6.4( 11:37 AM EDT) No Julia Chicas, DAVID Medical Devices Implanted Type Area Rat Exterminator Device Identifier Shelf Expiration Date Model / [...] AP PORTABLE DEISI 06/18/2024 3:27 PM EDT HEMOGLOBIN A1C Routine 04/28/2024 11:37 AM EDT Dry skin Paresthesias Type 2 diabetes mellitus with hyperglycemia, without long-term current use of insulin (HCC) LIPID SCREEN Routine 01/06/2024 11:42 AM EST Type 2 diabetes mellitus with hyperglycemia, without long-term current use of insulin (HCC) MICROALBUMIN/CREATININE RATIO URINE Routine 06/26/2023 2:30 PM EDT Type 2 diabetes mellitus with hyperglycemia, without long-term current use of insulin (HCC) DIABETES EYE EXAM Routine 11/19/2017 [facility] COLONOSCOPY Routine 06/16/2015 10:1 5 AM EDT HEPATITIS C ANTIBODY IGM + IGG Routine 01/24/2011 10:10 AM EST Arthritis from Last 3 Months or Most Recently Relevant to Health Maintenance Results * (ABNORMAL) GLUCOSE METER POC (07/26/2024 11:20 AM EDT) Only the most recent of21 resultswithin the time period is included. Glucose Meter POC 146(H) 70 - 100 mg/dL 07/26/2024 11:21 AM EDT [facility] Sample Type Capillary 07/26/2024 11:21 AM EDT [facility] Patient Status Non-Critical Patient 07/26/2024 11:21 AM EDT [facility] Blood BLOOD SPECIMEN / Unknown 07/26/2024 11:20 AM EDT 07/26/2024 11:21 AM EDT us Anil Thompson DO POINT OF CARE TEST ORDERABLE S Final Result [facility] [address] [place], [place] [id number] * ECG AND WAVEFORMS - TELEMETRY (07/26/2024 7:58 AM EDT) Only the most recent of8 resultswithin the time period is included. ECG INTERPRET Sinus with IVCD [facility] 07/26/2024 7:[address] [facility] - 07/26/2024 8:03 AM EDT EH - ROUTINE RI 0.20 QRS 0.11 RR 0.88 QT 0.37 QTc 0.39 See Clinical Report link for waveform capture us Unknown Provider POINT OF CARE CARDIOLOGY Final Result [facility] [address] [place], [place] [id number] * (ABNORMAL) CBC WITH DIFF (07/26/2024 6:09 AM EDT) Only the most recent of6 resultswithin the time period is included. WBC 11.0(H) 3.7 - 10.3 x10(3)/mcL 07/26/2024 [...] 7:44 AM EDT [facility] Burke Percent 6.1 % 07/26/2024 7:44 AM EDT [facility] Eos Percent 4.2 % 07/26/2024 7:44 AM EDT [facility] Baso Percent 0.4 % 07/26/2024 7:44 AM EDT [facility] Neut # 4.9 1.6 - 6.1 x10(3)/[facility] 07/26/2024 7:44 AM EDT [facility] Comment:Neutrophils equals s egs plus bands IMMGRAN# 0.1 0.0 - 0.1 x10(3)/mcL 07/26/2024 7:44 AM EDT [facility] Comment:Automated count of m etamyelocytes, myelocytes and promyelocytes. An absolute IG <0.1 is reported as 0.0. Lymph # 4.9(H) 1.2 - 3.9 x10(3)/[facility] 07/26/2024 7:44 AM EDT [facility] Burke # 0.7 0.3 - 0.9 x10(3)/mcL 07/26/2024 7:44 AM EDT [facility] Eos# 0.5 0.0 - 0.5 x10(3)/[facility] 07/26/2024 7:44 AM EDT [facility] Baso # 0.0 0.0 - 0.1 x10(3)/[facility] 07/26/2024 7:44 AM EDT [facility] Blood VENOUS BLOOD / Unknown Venipuncture / Unknown 07/26/2024 6:09 AM EDT 07/26/2024 7:29 AM EDT us Anil Thompson DO HEMATOLOGY ORDERABLES Final Result [facility] [address] [facility] , [place] [address] * EC ECHOCARDIOGRAM LIMITED (07/25/2024 2:20 PM [...] not well visualized. Narrative Procedure Note Ema Padilla, DO - 07/26/2024 IMPRESSION Conclusions * Left [...] - 10.4 mg/dL 07/25/2024 8:18 AM EDT [facility] Glucose Lvl 103(H) 70 - 99 mg/dL 07/25/2024 8:18 AM EDT [facility] BUN 13 8 - 23 mg/dL 07/25/2024 8:18 AM EDT [facility] Creatinine 1.40(H) 0.67 - 1.30 mg/dL 07/25/2024 8:18 AM EDT [facility] eGFR (CKD-EPIcr 2020) 55(L) >=60 mL/min/1.7 3 m2 07/25/2024 8:18 AM EDT [facility] Comment:Estimated GFR was ca lculated using the CKD-EPIcr (2020) equation refit without race. The equation is recommended by the National Kidney Foundation - [place] [employer] Nephrology Task Force. Blood VENOUS BLOOD / Unknown Venipuncture / Unknown 07/25/2024 6:23 AM EDT 07/25/2024 7:43 AM EDT Anil Thompson DO CHEMISTRY ORDERABLES Final R esult Performing Organization Address City/[facility] Co de Phone Number [address] , [place] [address] * BLOOD CULTURE (NO STAIN) (07/23/2024 8:10 AM EDT) Only the most recent of4 resultswithin the time period is included. Culture Result No Growth at 120 hours. BLOOD CULTURE (NO STAIN) 07/28/2024 9:00 AM EDT [facility] Blood VENOUS BLOOD / Unknown Venipuncture / Unknown 07/23/2024 8:10 AM EDT 07/23/2024 8:20 AM EDT us Chapo Calvin MD MICROBIOLOGY - GENERAL ORDER ARJUN Final Result Performing Organization Address City/[facility]/ZIP Co de Phone Number [facility] , [place] [address] * (ABNORMAL) SEDIMENTATION RATE AUTOMATED (07/23/2024 8:10 AM EDT) Only the most recent of2 resultswithin the time period is included. Sed Rate 39(H) 0 - 20 mm/hr 07/23/2024 9:28 AM EDT [facility] Blood VENOUS BLOOD / Unknown Venipuncture / Unknown 07/23/2024 8:10 AM EDT 07/23/2024 8:21 AM EDT Chapo Calvin MD HEMATOLOGY ORDERABLES Final Result Performing Organization Address [facility] Phone Number [facility] [address] , [place] [phone] * (ABNORMAL) C-REACTIVE PROTEIN (07/23/2024 8:10 AM EDT) Only the most recent of3 resultswithin the time period is included. CRP 94.55(H) <=5.00 mg/L 07/23/2024 12:34 PM EDT [facility] Blood VENOUS BLOOD / Unknown Venipuncture / Unknown 07/23/2024 8:10 AM EDT 07/23/2024 8:21 AM EDT us Chapo Calvin MD CHEMISTRY ORDERABLES Final R esult Performing Organization Address [facility] de Phone Number [facility] [address] , [place] [address] * (ABNORMAL) CREATINE KINASE (07/23/2024 8:10 AM EDT) CK 13(L) 39 - 308 U/L 07/23/2024 12:34 PM EDT [facility] Blood VENOUS BLOOD / Unknown Venipuncture / Unknown 07/23/2024 8:10 AM EDT 07/23/2024 8:21 AM EDT Chapo Calvin MD CHEMISTRY ORDERABLES Final R esult [facility] [address] [facility] , [place] [address] * (ABNORMAL) COMPREHENSIVE METABOLIC PANEL (07/23/2024 8:10 [...] 9:14 AM EDT [facility] Bili Total 0.2 0.2 - 1.4 mg/dL 07/23/2024 9:14 AM EDT [facility] ALT 6 <=41 U/L 07/23/2024 9:14 AM EDT [facility] AST 10 <=40 U/L 07/23/2024 9:14 AM EDT [facility] Alk Phos 82 40 - 129 U/L 07/23/2024 9:14 AM EDT [facility] eGFR (CKD-EPIcr 2020) 45(L) >=60 mL/min/1.7 3 m2 07/23/2024 9:14 AM EDT [facility] Comment:Estimated GFR was ca lculated using the CKD-EPIcr (2020) equation refit without race. The equation is recommended by the National Kidney Foundation - [place] [employer] Nephrology Task Force. Blood VENOUS BLOOD / Unknown Venipuncture / Unknown 07/23/2024 8:10 AM EDT 07/23/2024 8:21 AM EDT us Chapo Calvin MD CHEMISTRY ORDERABLES Final R esult Performing Organization Address City/[facility]/ZIP Co de Phone Number [facility], [address] , [place] [address] * (ABNORMAL) C DIFF INTERPRETATION (07/22/2024 12:04 PM EDT) C Diff Toxin DNA Positive(A) Negative 07/22/2024 1:41 PM EDT [facility] NAP1 Presumptive Neg Presumptive Neg 07/22/2024 1:41 PM EDT [facility] GDH Antigen Positive(A) Negative 07/22/2024 1:41 PM EDT [facility] C diff toxin A/B Positive(A) Negative 07/22/2024 1:41 PM EDT [facility] Stool RECTUM STRUCTURE / Unknown 07/22/2024 12:04 PM EDT 07/22/2024 12:11 PM EDT Narrative [facility] - 07/22/2024 1:41 PM EDT Toxin producing C diff target DNA sequences detected. Toxins A/B positive. CDI likely. Consider initiation of severity-based CDI therapy according to CDI management guidance. us Anil Thompson DO MICROBIOLOGY - GENERAL ORDER ARJUN Final Result Performing Organization Address City/[facility]/ZIP Co de Phone Number [facility], [address] , [place] [address] * C DIFF GDH AG AND TOXIN A+B (07/22/2024 12:04 PM EDT) Stool RECTUM STRUCTURE / Unknown 07/22/2024 12:04 PM EDT 07/22/2024 12:11 PM EDT Anil Thompson DO MICROBIOLOGY - GENERAL ORDER ARJUN Final Result Performing Organization Address City/[facility]/ZIP Co de Phone Number [facility] [address] , [address] [place] [phone] * C DIFF TOXIN DNA (07/22/2024 12:04 PM EDT) Stool RECTUM STRUCTURE / Unknown 07/22/2024 12:04 PM EDT 07/22/2024 12:11 PM EDT Anil Thompson DO MICROBIOLOGY - GENERAL ORDER ARJUN Final Result Performing Organization Address [facility] Co de Phone Number [facility] [address] , [address] [place] [phone] * SHIGA TOXIN (07/22/2024 12:04 PM EDT) Shiga Toxin Shiga toxins (produced by E. coli) not detected. Shiga toxins (produced by E. coli) not detected. 07/23/2024 5:08 PM EDT [facility] Stool RECTUM STRUCTURE / Unknown 07/22/2024 12:04 PM EDT 07/22/2024 9:23 PM EDT Anil Thompson DO MICROBIOLOGY - GENERAL ORDER ARJUN Final Result Performing Organization Address City/[facility] Co de Phone Number [facility] [address] , [address] [place] [phone] * STOOL CULTURE (NO STAIN) (07/22/2024 12:04 PM EDT) Culture No growth of enteric pathogens, including Salmonella, Shigella, Campylobacter, Vibrio, Yersinia, Aeromonas, Plesiomonas, or E. coli O157. 07/24/2024 7:50 AM EDT [facility] Stool RECTUM STRUCTURE / Unknown 07/22/2024 12:04 PM EDT 07/22/2024 12:11 PM EDT Anil Thompson DO MICROBIOLOGY - GENERAL ORDER ARJUN Final Result Performing Organization Address [facility] Co de Phone Number [facility] [address] , [place] [address] * OVA AND PARASITE BASIC (07/22/2024 12:04 PM EDT) Giardia Lamblia Antigen Not Detected Not detected 07/22/2024 6:39 PM EDT [facility] Cryptosporidium Exam Not Detected Not Detected 07/22/2024 6:39 PM EDT [facility] Stool RECTUM STRUCTURE / Unknown 07/22/2024 12:04 PM EDT 07/22/2024 12:11 PM EDT Anil Thompson DO MICROBIOLOGY - GENERAL ORDER ARJUN Final Result Performing Organization Address [facility] de Phone Number [facility] [address] , [place] [address] * US RENAL AND BLADDER (07/22/2024 10:53 [...] evaluation of the kidneys and bladder with hotel services sales representative images and plumbing warehouse helper notes sent to PACS for radiologist review. [...] sonographic evaluation of the kidneys andbladder with hotel services sales representative images and plumbing warehouse helper notes sent to PACS forradiologist review. FINDINGS: [...] 10.3 x10(3)/mcL 07/22/2024 6:40 AM EDT [facility] [employer] RBC 3.48(L) 4.60 - 6.10 x10(6)/mcL 07/22/2024 [...] Final R esult [facility] [address] [facility] , [place] [address] * VANCOMYCIN LEVEL (07/22/2024 4:45 AM EDT) Vanco Random 14.6 mcg/mL 07/22/2024 5:44 AM EDT [facility] Blood VENOUS BLOOD / Unknown Venipuncture / Unknown 07/22/2024 4:45 AM EDT 07/22/2024 5:07 AM EDT Cat Jules MD CHEMISTRY ORDERABLES Final Result [facility] [address] [facility] , [place] [address] * (ABNORMAL) URINALYSIS REFLEX (07/21/2024 6:04 PM EDT) UA Color Yellow 07/21/2024 6:17 PM EDT [facility] UA Appear Clear Clear 07/21/2024 6:17 PM EDT [facility] UA Glucose Negative Negative mg/dL 07/21/2024 6:17 PM EDT [facility] UA Ketones Negative Negative mg/dL 07/21/2024 6:17 PM EDT [facility] UA Blood Negative Negative 07/21/2024 6:17 PM EDT [facility] UA pH 6.0 5.0 - 8.0 pH 07/21/2024 6:17 PM EDT [facility] UA Protein 1+ (30-70 mg/dL)(A) Negative mg/dL 07/21/2024 6:17 PM EDT [facility] UA Urobilinogen Normal <=1 mg/dL [...] /HPF 07/21/2024 6:17 PM EDT [facility] Urine STRUCTURE OF URINARY TRACT PROPER / Unknown 07/21/2024 6:04 PM EDT 07/21/2024 6:09 PM EDT Cat Jules MD URINE ORDERABLES Final Res ult Performing Organization Address [facility] Co de Phone Number [facility] [address] [place] [address] , [address] [place] [phone] * EXTRA BE URINE CX (07/21/2024 6:04 PM EDT) Urine STRUCTURE OF URINARY TRACT PROPER / Unknown 07/21/2024 6:04 PM EDT 07/21/2024 6:09 PM EDT Cat Jules MD MICROBIOLOGY - GENERAL ORD ERABLES Final Result Performing Organization Address [facility] de Phone Number [facility] [address] [place], [place] [phone] * URINE CULTURE (NO STAIN) (07/21/2024 6:04 PM EDT) Culture Multiple bacterial species isolated from urine consistent with urogenital commensal organisms. 07/23/2024 3:11 AM EDT [facility] Urine STRUCTURE OF URINARY TRACT PROPER / Unknown 07/21/2024 6:04 PM EDT 07/21/2024 6:17 PM EDT Cat Jules MD MICROBIOLOGY - GENERAL ORD ERABLES Final Result Performing Organization Address City/[facility] Co de Phone Number [employer] [address] [place] [address] , [place] [address] * (ABNORMAL) PROCALCITONIN (07/21/2024 5:42 PM EDT) Procalcitonin 0.50(H) <=0.49 ng/mL 07/21/2024 6:35 PM EDT [facility] Blood VENOUS BLOOD / Unknown Venipuncture / Unknown 07/21/2024 5:42 PM EDT 07/21/2024 5:51 PM EDT Narrative [facility] - 07/21/2024 6:35 PM EDT [...] CHEMISTRY ORDERABLES Final Result Performing Organization Address City/[facility]/ZIP Co de Phone Number [facility] [address], [address] [place] [phone] * LACTIC ACID (07/21/2024 5:42 PM EDT) Lactic Acid 1.2 0.5 - 1.9 mmol/L 07/21/2024 5:59 PM EDT [facility] Blood VENOUS BLOOD / Unknown Venipuncture / Unknown 07/21/2024 5:42 PM EDT 07/21/2024 5:45 PM EDT Cat Jules MD CHEMISTRY ORDERABLES Final Result Performing Organization Address City/[facility]/ZIP Co de Phone Number [facility] [address] [place], [place] [id number] * XR CHEST AP PORTABLE (07/21/2024 5:33 [...] Detected 07/22/2024 6:26 PM EDT [facility] STREPTOCOCCUS PNEUMONIAE Not Detected Not Detected 07/22/2024 6:26 PM EDT [facility] STREPTOCOCCUS PYOGENES (GROUP A) Not Detected Not Detected 07/22/2024 6:26 PM EDT [facility] mecA Not Detected. Methicillin Resistance due to other mechanisms cannot be excluded. 07/22/2024 6:26 PM EDT [facility] mecC Not Detected. Methicillin Resistance due to other mechanisms cannot be excluded. 07/22/2024 6:26 PM EDT [facility] Blood VENOUS BLOOD / Unknown Venipuncture / Unknown 07/21/2024 4:58 PM EDT 07/21/2024 5:02 PM EDT us Cat Jules MD MICROBIOLOGY - GENERAL ORD ERABLES Final Result [facility] [address] [facility] [facility] [address] , [place] [address] * (ABNORMAL) COMPLIANCE OPIOID PANEL QUANT ONLY, URINE (06/22/2024 12:16 PM EDT) Medications Expected Oxycodone 06/23/2024 5:38 PM EDT [facility] Hydrocodone <50 Cutoff 50 ng/mL ng/mL 06/23/2024 5:38 PM EDT [facility] Comment:e.g., Lorcet, Lortab , Vicodin, [place]; Minor Metabolite of Codeine Dihydrocodeine <50 Cutoff 50 ng/mL ng/mL 06/23/2024 5:38 PM EDT [facility] Comment:e.g., Didrate, Parzo ne, Parlor, Synalgos; Metabolite of Hydrocodone Norhydrocodone <50 Cutoff 50 ng/mL ng/mL 06/23/2024 5:38 PM EDT [facility] Comment:Metabolite of Hydroc odone Hydromorphone <50 Cutoff 50 ng/mL ng/mL 06/23/2024 5:38 PM EDT [facility] Comment:e.g., Dilaudid; also Metabolite of Hydrocodone and Minor Metabolite of Morphine Hydromorphone Glucuronide <50 Cutoff 50 ng/mL ng/mL 06/23/2024 5:38 PM EDT [facility] Comment:Metabolite of Hydrom orphone Oxycodone 1,269(H) Cutoff 50 ng/mL ng/mL 06/23/2024 5:38 PM EDT [facility] Comment:e.g., Oxycontin, Per cocet, Endocet, Percodan, Roxicet Noroxycodone 1,237(H) Cutoff 50 ng/mL ng/mL 06/23/2024 5:38 PM EDT [facility] Comment:Metabolite of Oxycod one Oxymorphone <50 Cutoff 50 ng/mL ng/mL 06/23/2024 5:38 PM EDT [facility] Comment:e.g., Opana; Metabol ite of Oxycodone Oxymorphone Glucuronide >2,000(H) Cutoff 50 ng/mL ng/mL 06/23/2024 5:38 PM EDT [facility] Comment:Metabolite of Oxycod one Noroxymorphone >2,000(H) Cutoff 50 ng/mL ng/mL 06/23/2024 5:38 PM EDT [facility] Comment:Metabolite of Oxycod one, and Oxymorphone, Noroxycodone Metabolite Tramadol <50 Cutoff 50 ng/mL ng/mL 06/23/2024 5:38 PM EDT [facility] Comment:e.g., Ultram, ConZip W-Okiqfdjen-hbc-Tra madol <50 Cutoff 50 ng/mL ng/mL 06/23/2024 5:38 PM EDT [facility] Comment:Metabolite of Tramad ol Codeine <50 Cutoff 50 ng/mL ng/mL 06/23/2024 5:38 PM EDT [facility] Comment:e.g., Acetaminophen w/Codeine, Tylenol3 w/ Codeine Codeine Glucuronide <50 Cutoff 50 ng/mL ng/mL 06/23/2024 5:38 PM EDT [facility] Comment:Metabolite of Codein e Meperidine <50 Cutoff 50 ng/mL ng/mL 06/23/2024 5:38 PM EDT [facility] Comment:e.g., Demerol, Pethi dine Normeperidine <50 Cutoff 50 ng/mL ng/mL 06/23/2024 5:38 PM EDT [facility] Comment:Metabolite of Meperi dine Morphine <50 Cutoff 50 ng/mL ng/mL 06/23/2024 5:38 PM EDT [facility] Comment:e.g., MS Contin, Jessica anol; Metabolite of Codeine and Heroin; may reflect poppy seed ingestion Txnnaocn-7-Wjuxmzjz elio <25 Cutoff 25 ng/mL ng/mL 06/23/2024 5:38 PM EDT [facility] Comment:Metabolite of Morphi ne. Edqbkljs-5-Cdwtzckm elio <25 Cutoff 25 ng/mL ng/mL 06/23/2024 5:38 PM EDT [facility] Comment:Metabolite of Morphi ne. Naloxone <25 Cutoff 25 ng/mL ng/mL 06/23/2024 5:38 PM EDT [facility] Comment:e.g., Narcan, Evzio Buprenorphine <5 Cutoff 5 ng/mL ng/mL 06/23/2024 5:38 PM EDT [facility] Comment:e.g., Suboxone, Subu sindhu,Sublocade, Buprenex Buprenorphine Glucuronide <10 Cutoff 10 ng/mL ng/mL 06/23/2024 5:38 PM EDT [facility] Comment:Buprenorphine Metabo lite Norbuprenorphine <5 Cutoff 5 ng/mL ng/mL 06/23/2024 5:38 PM EDT [facility] Comment:Buprenorphine Metabo lite Norbuprenorphine Glucuronide <10 Cutoff 10 ng/mL ng/mL 06/23/2024 5:38 PM EDT [facility] Comment:Buprenorphine Metabo lite Fentanyl <1 Cutoff 1 ng/mL ng/mL 06/23/2024 5:38 PM EDT [facility] Comment:e.g.,Duragesic, Oral et, Actiq, Sublimaze, Innovar, Lazanda Norfentanyl <1 Cutoff 1 ng/mL ng/mL 06/23/2024 5:38 PM EDT [facility] Comment:Metabolite of Fentan yl 6-Monoacetylmorphin e (6MAM) <10 Cutoff 10 ng/mL ng/mL 06/23/2024 5:38 PM EDT [facility] Comment:Metabolite of Heroin ; Morphine is expected Methadone <50 Cutoff 50 ng/mL ng/mL 06/23/2024 5:38 PM EDT [facility] Comment:e.g., Dolophine, Met hadose, Amidone EDDP <50 Cutoff 50 ng/mL ng/mL 06/23/2024 5:38 PM EDT [facility] Comment:Methadone Metabolite Tapentadol <50 Cutoff 50 ng/mL ng/mL 06/23/2024 5:38 PM EDT [facility] Comment:Nucynta Tapentadol-Glucuron elio <50 Cutoff 50 ng/mL ng/mL 06/23/2024 5:38 PM EDT [facility] Comment:Metabolite of Tapent adol Urine Creatinine 121.0 mg/dL 06/24/19 25 5:38 PM EDT [facility] Comment: Greater than 20: Consistent with valid sample Greater than 2 but less than 20: Possible dilution Less than 2: Questionable valid sample Urine STRUCTURE OF URINARY TRACT PROPER / Unknown 06/22/2024 12:16 PM EDT 06/22/2024 12:16 PM EDT Narrative [facility] - 06/23/2024 5:38 PM EDT The absence of expected drug(s), and/or drug metabolite(s), may indicate non-compliance, diluted or adulterated urine, poor drug absorption, concentration of drug below the cut-off, timing of specimen collection relative to administration of drug, or limitations of testing. Specimens are held for 7 days. This test was developed, and its performance characteristics determined by [facility] ([facility]). It has not been cleared or approved by the FDA. This test is used for clinical purposes. It should not be regarded as investigational or for research. [facility] is certified under the Clinical Laboratory Improvement Amendments (CLIA) as qualified to perform high complexity clinical laboratory testing. us Viridiana Oropeza MD URINE ORDERABLES Final Result [facility] [address] , [place] [address] [facility] [address] [place] [address] * NT PROBNP (06/18/2024 3:31 PM EDT) NT Pro-BNP 176 <=229 pg/mL 06/18/2024 4:30 PM EDT [facility] Blood VENOUS BLOOD / Unknown Venipuncture / Unknown 06/18/2024 3:31 PM EDT 06/18/2024 3:35 PM EDT Narrative [facility] - 06/18/2024 4:30 PM EDT An NT pro-BNP level less than 300 pg/mL in any patient, regardless of age, effectively rules out acute CHF with a 99% negative predictive value. Ingestion of yoselyn doses of biotin (>5 mg/day) taken within 8 hours of drawing blood sample can interfere with this immunoassay test. Adenike Edmond [employer] CHEMISTRY ORDERABLES nal Result [facility] [address] [place] [address] * (ABNORMAL) HEMOGLOBIN A1C (04/28/2024 11:37 AM EDT) Pathologist [facility] Hgb A1C 6.4(H) 4.2 - 5.6 % 04/28/2024 10:06 PM EDT [employer]. Avg Glucose 137 mg/dL 04/28/2024 10:06 PM EDT [facility] Blood VENOUS BLOOD / Unknown Venipuncture / Unknown 04/28/2024 11:37 AM EDT 04/28/2024 11:37 AM EDT [facility] [employer] - 04/28/2024 10:06 PM EDT REFERENCE RANGE: Normal: 4.0-5.6% Pre-diabetes: 5.7-6.4% Provisional diagnosis of diabetes: >6.4% Hgb F>10% and anything which shortens red cell survival, such as hemolytic anemia, or unstable hemoglobin variants such as HbSS, HbSC, or HbCC, will lower the HbA1c value associated with a given level of glycemic control. us Lucia Dunlap PA-C CHEMISTRY ORDERABLES Final Resu lt [facility] [address] [facility] [address], [place] [address] [facility] [address] [place] [address] * (ABNORMAL) LIPID SCREEN (01/06/2024 11:42 AM EST) Cholesterol 141 <200 mg/dL 01/06/2024 4:22 PM EST [facility] Comment: < 200 Desirable 200 - 239 Borderline High >= 240 High Triglyceride 179(H) <150 mg/dL 01/06/2024 4:22 PM EST [facility] Comment: < 150 Normal 150 - 199 Borderline High 200 - 499 High >= 500 Very High HDL 34(L) >=40 mg/dL 01/06/2024 4:22 PM EST [facility] Comment: > 60 Optimal 40 - 60 Acceptable < 40 Low LDL Calculated 76 <100 mg/dL 01/06/2024 4:22 PM EST [employer] Comment: < 100 Optimal 100 - 129 Near or above optimal 130 - 159 Borderline High 160 - 189 High >= 190 Very High Non-HDL-C Calculated 107 <=129 mg/dL 01/06/2024 4:22 PM EST [facility] Comment: <130 Desirable 130-159 Above Desirable 160-189 Borderline High 190-219 High >= 220 Very High Fasting Specimen? Yes None 024 4:22 PM EST [facility] Blood VENOUS BLOOD / Unknown Venipuncture / Unknown 01/06/2024 11:42 AM EST 01/06/2024 11:42 AM EST us Viridiana Oropeza MD CHEMISTRY ORDERABLES Final Resu lt [facility] [address] [place] [address] [facility] [address] [place] [address] * MICROALBUMIN/CREATININE RATIO URINE (06/26/2023 2:30 PM EDT) Urine Microalb 27.3 mg/L 06/26/2023 10:34 PM EDT [facility] Urine Creatinine 189.4 mg/dL 06/26/2023 10:34 PM EDT [facility] Ur Microalb/Creat 14 0 - 30 mg/g 06/26/2023 10:34 PM EDT [facility] Urine URINE SPECIMEN COLLECTION / Unknown 06/26/2023 2:30 PM EDT 06/26/2023 2:30 PM EDT Viridiana Oropeza MD URINE ORDERABLES Final Result [address], [place] [address] * DIABETES EYE EXAM (11/19/2017) Left Diabetic Retinopathy Not Present Present/Not Present SEP OFFICE Right Diabetic Retinopathy Not Present Present/Not Present SEP OFFICE Viridiana Oropeza MD HEALTH MAINTENANCE Final Result SEP OFFICE * GMED COLONOSCOPY (06/16/2015 10:15 AM EDT) 06/16/2015 10:[address] [facility] - 06/16/2015 11:43 AM EDT Grade 1 internal hemorrhoids. Normal mucosa in the whole colon. Plan: Screening Colonoscopy in 10 years. This section is an excerpt of the full report. us Pankaj Chavez MD GI PROCEDURE ORDERABLES Jaimee l Result [facility] [address] [place] [address] * HEPATITIS C ANTIBODY IGM + IGG (01/24/2011 10:10 AM EST) Hep C Ab Negative Negative [facility] Blood specimen (specimen) VENOUS STRUCTURE / Unknown 01/24/2011 10:10 AM EST 01/24/2011 10:21 AM EST Nereida Valle MD IMMUNOLOGY ORDERABLES Fin al Result [facility] [address] [place] [address] from Last 3 Months or Most Recently Relevant to Health Maintenance Additional Health Concerns Infection Onset Date Last Indicated C-diff 07/22/2024 07/22/2024 [place] [id number] [employer] MEDICARE PART [id number] [place] [address] [place] [id number] [employer] MEDICARE PART B [facility] OF [address] MEDICARE PART B [place] [id number] [place] MEDICARE PART B MEDICARE PART B [place]Y GREENE [id number] MEDICARE PART [facility] [place] [address] [facility] Advance Directives For more information, please contact: [phone] * Full Code (Latest Code Status on File) Date Activated Date Inactivated Comments 07/21/2024 8:09 PM 07/26/2024 8:11 PM * Full Code Date Activated Date Inactivated Comments 08/28/2023 10:07 PM 09/03/2023 5:46 PM Care Teams Bounty Trapper Relationship Specialty Start Date End Date Pankaj Navarro MD [address] [address] Physician Otolaryngology 09/18/23
--- OUTSIDE RECORDS SUMMARY | 2024-09-15 12:37 | XMS_ITS | Encounter Summary ---
Author Organization [place] [address] Care Team Providers Care Erp Programmer Name Role Phone Viridiana Oropeza MD Primary Care Provider [phone] Pankaj Navarro MD Unavailable [phone] Reason for Visit * Reason Onset Date Comments CM- Telephonic Outreach 07/30/2024 Hospital Follow Up 07/30/2024 Encounter Details Date Type Department Care Team (Late Contact Info) Description 07/30/2024 Patient Outreach SE[facility] Care Managment [address] Appointment Location May Differ [place] [id number] Wen Ayers, RN CM- Telephonic Outreach; Hospital Follow Up Social History Tobacco Use Types Packs/Day Years Used Date Smoking Tobacco: Never Passive Smoke Exposure: Never Smokeless Tobacco: Never Alcohol Use Standard Drinks/Week Comments No 0 (1 standard drink = 0.6 oz pur e alcohol) [facility] Utilities Answer Date Recorded In the past 12 months has [employer], gas, oil, or water [employer] threatened to shut off services in your home? No 07/22/2024 Overall Financial Resource Strain (CARDIA) Answe r Date Recorded How hard is it for you to pa y for the very basics like food, housing, medical care, and heating? Not hard at all 07/22/2024 PHQ-2 Answer Date Recorded PHQ-2 Total Score 0 07/22/2024 [facility] [place] of Occupat ional Health - Occupational Stress [...] things needed for daily living? No 01/21/2020 [facility] IP Transportation Answer D ate [...] Patient can return call to Wen Ayers [phone] documented in this encounter Plan of Treatment [...] documented as of this encounter Care Teams Erp Programmer Relationship Specialty Start Date End Date Viridiana Oropeza MD [address] [place] [address] PCP - General 01/19/09 09/14/24 Pankaj Navarro MD [address] [place] [id number] Physician Otolaryngology 09/18/23 documented as of this encounter
--- OUTSIDE RECORDS SUMMARY | 2024-09-15 12:38 | XMS_ITS | Clinical Summary ---
Author Organization [facility] Address [address] [place] [address] Care Team Providers Care It Business Process Architect Name Role Phone Viridiana Oropeza MD Primary Care Provider [phone] MarcellusaddisonkileyGerardo pink Unavailable [phone] Allergies Active Allergy Reactions Criticality Noted [...] Type Department Care Team Description 08/05/[address] [address] Roxana Wagoner 07/20/2024 10:30 AM EDT Office Visit [address] [address] Wilfredo Forte MD Infection of prosthetic joint, subsequent encounter (Primary Dx) 07/20/2024 Results Follow-Up [address] [address] Wilfredo Forte MD abnormal labs [...] Building [facility] [address], [address] [place] [address] Alejandro Rojas MD HCN - Patient Message 06/18/2024 Telephone Medical Office [facility] [address], [address] [place] [address] Alejandro Rojas MD HCN - Patient Message 06/15/2024 10:00 AM EDT Office Visit [facility] [address] [place] [address] Wilfredo Forte MD 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 Patient unable to answer 05/04/2024 Do you belong to any clubs o r organizations such as congregation groups, unions, fraternal or athletic groups, or [...] Recorded Patient Health Questionnaire-2 Score 0 06/15/2024 [facility] - Occupational Stress Questionnaire Answer Date Recorded [...] any time in the past 12 m [facility], were you homeless or living in a halfway (including now)? No 05/04/2024 Utilities Answer Date [...] Last Done Comments [facility]-Hepatitis C Screening 1955 [facility]-Infant/Child/Adol SDOH Screenings 1955 Diabetes: Dental Exam 1966 CT Colonography 2001 Colonoscopy 2001 FIT-DNA 2001 FIT 2001 FOBT 2001 Sigmoidoscopy 2001 [facility]-Colorectal Cancer Screening 2001 [facility]-Zoster Vaccines (1 of 2) 2006 [facility]-RSV Vaccine: 60+ Years or (1 - Risk 60-74 years 1-dose series) 2016 NBI-ORYAS-33 Vaccine ( - 2023- season) 2023 03/27/2023, 08/17/2021, 12/20/2020, Additional history [...] Care Plan Autogenerated Problem No Chris Ortiz Autogene floyd Goal Care Plan Autogenerated Problem No Mohan Wagoner PA Medical Devices Implanted Type Area Fancy Needleworker Device Identifier Shelf Expiration Date Model / Serial / Lot Cement Palacos W/Gent - Sn/A - [id number] Implanted:Qty : 1 on 05/02/2024 by Denis Stevenson MD at [facility] Cement Right: Hip [employer]-[id number] 05/12/2027 [id number] / N/A / [id number] Implant Implant Bilatera l: Hip Liner Ref Xlpe 36 20 Deg 54-56 F - [id number] Implanted:Qty : 1 on 03/26/2024 by Alejandro Rojas MD at [facility] Right: Hip [employer]hew [employer]-[id number] 07/27/2029 [id number] / / [id number] Hip Head Oxi Fm Tpr 36 +8 - [id number] Implanted:Qty : 1 on 03/26/2024 by Alejandro Rojas MD at [facility] Right: Hip [employer]-[id number] 07/01/2032 [id number] / / [id number] Chg Stem Redapt [place] 300mm So Sz21 - [id number] Implanted:Qty : 1 on 05/07/2024 by Alejandro Rojas MD at [facility] Right: Hip [employer]-[id number] 09/06/2031 [id number] / / [id number] Chg Head Oxinium Fem 01/24 28m - [id number] Implanted:Qty : 1 on 05/07/2024 by Alejandro Rojas MD at [facility] Right: Hip [employer]-[id number] 10/27/2033 [id number] / / [id number] Shell Modular Redapt 62mm - [id number] Implanted:Qty : 1 on 05/07/2024 by Alejandro Rojas MD at [facility] Right: Hip [employer]-[id number] 10/21/2032 [id number] / / [id number] Chg Screw Ref Spher Head 25mm - [id number] Implanted:Qty : 1 on 05/07/2024 by Alejandro Rojas MD at [facility] Right: Hip [employer]-[id number] 11/04/2033 [id number] / / [id number] Liner Or3o Dual Mbility 48 62 - [id number] Implanted:Qty : 1 on 05/07/2024 by Alejandro Rojas MD at [facility] Right: Hip [employer]-[id number] 06/24/2032 [id number] / / [id number] Chg Screw Ref Spher Head 25mm - [id number] Implanted:Qty : 1 on 05/07/2024 by Alejandro Rojas MD at [facility] Right: Hip [employer]-[id number] 11/02/2033 [id number] / / [id number] Chg Screw Redapt Lock 15mm - [id number] Implanted:Qty : 1 on 05/07/2024 by Alejandro Rojas MD at [facility] Right: Hip [employer]-[id number] 09/23/2033 [id number] / / [id number] Liner Or3o Dual Mbility Xlpe 28 48 - [id number] Implanted:Qty : 1 on 05/07/2024 by Alejandro Rojas MD at [facility] Right: Hip [employer]-[id number] 01/09/2030 [id number] / / [id number] Procedures Procedure Name Priority Date/Time Associated Diagnosis [...] with internal right hip prosthesis, subsequent encounter HEMOGLOBIN A1C STAT Add-on 05/02/2024 2:46 AM EDT from Last 3 Months or Most Recently Relevant to Health Maintenance Results * (ABNORMAL) CBC and Differential (07/20/2024 10:40 AM EDT) WBC Count 20.96(H) 3.70 - 10.30 10*3/uL LAB HEMATOLOGY METHOD 07/20/2024 2:54 PM EDT [facility] RBC Count 4.16(L) 4.60 - 6.10 10*6/uL LAB HEMATOLOGY METHOD 07/20/2024 2:54 PM EDT [facility] HGB 11.5(L) 13.7 - 17.5 g/dL LAB HEMATOLOGY METHOD 07/20/2024 2:54 PM EDT [facility] HCT 37.3(L) 40.0 - 51.0 % LAB HEMATOLOGY METHOD 07/20/2024 2:54 PM EDT [facility] Platelet Count 316 155 - 369 10*3/uL LAB HEMATOLOGY METHOD 07/20/2024 2:54 PM EDT [facility] MCV 90 79 - 98 fL LAB HEMATOLOGY METHOD 07/20/2024 2:54 PM EDT [facility] MCH 27.6 26.0 - 32.0 pg LAB HEMATOLOGY METHOD 07/20/2024 2:54 PM EDT [facility] MCHC 30.8 30.7 - 35.5 g/dL LAB HEMATOLOGY METHOD 07/20/2024 2:54 PM EDT [facility] RDW 15.5(H) 11.5 - 14.5 % LAB HEMATOLOGY METHOD 07/20/2024 2:54 PM EDT [facility] MPV 9.7 8.8 - 12.5 fL LAB HEMATOLOGY METHOD 07/20/2024 2:54 PM EDT [facility] nRBC 0.0 <=0.0 per 100 WBCs LAB HEMATOLOGY METHOD 07/20/2024 2:54 PM EDT [facility] Differential Type Automated LAB HEMATOLOGY METHOD 07/20/2024 2:54 PM EDT [facility] Neutrophils % 49 % LAB HEMATOLOGY METHOD 07/20/2024 2:54 PM EDT [facility] Lymphocytes % 37 % LAB HEMATOLOGY METHOD 07/20/2024 2:54 PM EDT [facility] Monocytes % 7 % LAB HEMATOLOGY METHOD 07/20/2024 2:54 PM EDT [facility] Eosinophils % 3 % LAB HEMATOLOGY METHOD 07/20/2024 2:54 PM EDT [facility] Basophils % 0 % LAB HEMATOLOGY METHOD 07/20/2024 2:54 PM EDT [facility] Immature Granulocytes % 4 % LAB HEMATOLOGY METHOD 07/20/2024 2:54 PM EDT [facility] Neutrophils Absolute 10.36(H) 1.60 - 6.10 10*3/uL LAB HEMATOLOGY METHOD 07/20/2024 2:54 PM EDT [facility] Lymphocytes Absolute 7.66(H) 1.20 - 3.90 10*3/uL LAB HEMATOLOGY METHOD 07/20/2024 2:54 PM EDT [facility] Monocytes Absolute 1.51(H) 0.30 - 0.90 10*3/uL LAB HEMATOLOGY METHOD 07/20/2024 2:54 PM EDT [facility] Eosinophils Absolute 0.61(H) 0.00 - 0.50 10*3/uL LAB HEMATOLOGY METHOD 07/20/2024 2:54 PM EDT [facility] Basophils Absolute 0.07 0.00 - 0.10 10*3/uL LAB HEMATOLOGY METHOD 07/20/2024 2:54 PM EDT [facility] Immature Granulocytes Absolute 0.75(H) 0.00 - 0.06 10*3/uL LAB HEMATOLOGY METHOD 07/20/2024 2:54 PM EDT [facility] Blood Venous blood specimen / Unknown Venipuncture / Unknown 07/20/2024 10:40 AM EDT 07/20/2024 10:40 AM EDT [facility] - 07/20/2024 2:54 PM EDT Therapeutic decision making should be based on absolute values, rather than percentages. us Wilfredo Forte MD LAB BLOOD ORDERABLES Final Re sult Performing Organization Address [facility]/ZIP Co de Phone Number [facility] [address] [place] [address] * (ABNORMAL) C-reactive protein (07/20/2024 10:40 AM EDT) Pathologist [facility] CRP, Plasma 96.8(H) <=8.0 mg/L 07/20/2024 12:33 PM EDT [facility] Blood Venous blood specimen / Unknown Venipuncture / Unknown 07/20/2024 10:40 AM EDT 07/20/2024 10:40 AM EDT Narrative [facility] - 07/20/2024 12:33 PM EDT This CRP test is appropriate for assessment of infection, systemic inflammation and/or tissue injury. To assess cardiovascular disease risk order high sensitivity CRP (CRPH). us Wilfredo Forte MD LAB BLOOD ORDERABLES Final Re [facility] Performing Organization Address [facility] Co de Phone Number [facility] [address] [place] [address] * (ABNORMAL) Comprehensive Metabolic Panel, Plasma (07/20/2024 10:40 AM EDT) Pathologist [facility] Glucose, Plasma 129(H) 74 - 99 mg/dL 07/20/2024 12:33 PM EDT [facility] BUN, Plasma 33(H) 8 - 23 mg/dL 07/20/2024 12:33 PM EDT [facility] Creatinine, Plasma 2.15(H) 0.70 - 1.20 mg/dL 07/20/2024 12:33 PM EDT [facility] BUN/Creatinine Ratio 15 07/20/2024 12:33 PM EDT [facility] Sodium, Plasma 137 136 - 145 mmol/L 07/20/2024 12:33 PM EDT [facility] Potassium, Plasma 4.4 3.6 - 4.9 mmol/L 07/20/2024 12:33 PM EDT [facility] Chloride, Plasma 104 97 - 107 mmol/L 07/20/2024 12:33 PM EDT [facility] CO2, Plasma 19(L) 22 - 29 mmol/L 07/20/2024 12:33 PM EDT [facility] Anion Gap 14 6 - 16 mmol/L 07/20/2024 12:33 PM EDT [facility] Total Calcium, Plasma 9.3 8.9 - 10.2 mg/dL 07/20/2024 12:33 PM EDT [facility] Total Protein 6.6 6.3 - 7.9 g/dL 07/20/2024 12:33 PM EDT [facility] Albumin, Plasma 3.5 3.5 - 5.2 g/dL 07/20/2024 12:33 PM EDT [facility] AST, Plasma 13 10 - 50 U/L 07/20/2024 12:33 PM EDT [facility] ALT, Plasma 13 10 - 50 U/L 07/20/2024 12:33 PM EDT [facility] Alkaline Phosphatase, Plasma 96 40 - 115 U/L 07/20/2024 12:33 PM EDT [facility] Total Bilirubin, Plasma <0.2(L) 0.2 - 1.1 mg/dL 07/20/2024 12:33 PM EDT [facility] eGFRcr 32.9 mL/min/1.7 3m*2 07/20/2024 12:33 PM EDT [facility] Comment:Reported eGFRcr in m L/min/1.73m2 is based the CKD-EPI 2020 equation that does not use a race coefficient. Blood Venous blood specimen / Unknown Venipuncture / Unknown 07/20/2024 10:40 AM EDT 07/20/2024 10:40 AM EDT us Wilfredo Forte MD LAB BLOOD ORDERABLES Final Re sult [facility] [address] [place] [address] * PICC Removal (Clinic-Performed) (06/15/2024 10:12 AM EDT) Narrative Wilfredo Forte MD - 06/15/2024 10:12 AM EDT Wilfredo Forte MD 06/15/2024 12:22 PM PICC Removal (Clinic-Performed) Date/Time: 06/15/2024 10:12 AM Performed by: Ellen Ashton RN Authorized by: Wilfredo Forte MD Indications: vascular access Patient position: flat Catheter type: double lumen Post-procedure: dressing applied Patient tolerance: patient tolerated the procedure well with no immediate complications Comments: PICC removed per protocol. Pt denied chest pain, shortness of breath, and dizziness. Instructions given per handout and verbal instruction using teach back method. Jaylene Ashton RN Wilfredo Forte MD IN CLINIC/BEDSIDE ORDERABLES Edited Result - Final * (ABNORMAL) Hemoglobin A1c (05/02/2024 2:46 AM EDT) Hemoglobin A1c 5.8(H) <5.7 % 05/02/2024 8:35 AM EDT [facility] Blood Venous blood specimen / Unknown Venipuncture / Unknown 05/02/2024 2:46 AM EDT 05/02/2024 2:58 AM EDT Narrative [facility] - 05/02/2024 8:35 AM EDT HA1C Interpretive Data: Diagnosis of Diabetes: Diabetic > or = 6.5% Pre-diabetic 5.7 to 6.4% Non-diabetic < or = 5.6% Glycemic Targets for Type I and Type II Diabetics: Non- Adults <7.0% Adults <6.0% Children and Adolescents <7.5% Source: [place] [employer]. Standards of medical care in diabetes,2017. Diabetes Care.2017:40 (suppl 1):S1-S135. HbA1c assay performed by an ion-exchange chromatography method that is certified traceable to the DCCT. Regan Frank MD LAB BLOOD ORDERABLES Final Resul t [facility] [address] [place] [address] from Last 3 Months or Most Recently Relevant to Health Maintenance Additional Health Concerns Active Problems Noted Date Diagnosed Date Autogenerated Problem 07/17/2024 Autogenerated Problem 06/05/2024 [facility] [place] [address] Advance Directives * Full Code (Latest Code Status on File) Date Activated Date Inactivated Comments 05/02/2024 3:18 PM 05/13/2024 6:35 PM * Full Code Date Activated Date Inactivated Comments 05/02/2024 5:18 AM 05/02/2024 3:18 PM * Full Code Date Activated Date Inactivated Comments 03/26/2024 12:27 PM 04/01/2024 9:30 PM Question Answer Comments Patient has decision-making capacity? Yes Care Teams It Business Process Architect Relationship Specialty Start Date End Date Viridiana Oropeza MD [address] [place] [address] PCP - General 03/13/22 Gerardo Mcbride [address] [place] [address] 08/23/23
--- OUTSIDE RECORDS SUMMARY | 2024-09-15 12:38 | XMS_ITS | Encounter Summary ---
Author Organization [place] [address] Care Team Providers Care Manager Brand Name Role Phone Viridiana Oropeza MD Primary Care Provider [phone] Pankaj Navarro MD Unavailable [phone] Encounter Details Date Type Department Care Team (Late st Contact Info) Description 06/23/2024 Results Follow-Up [facility] [address] [place] [address] Lucia Dunlap PA-C [address] [place] [address] COMPLIANCE OPIOID PANEL QUANT ONLY, URINE Social History Tobacco Use Types Packs/Day Years Used Date Smoking Tobacco: Never Passive Smoke Exposure: Never Smokeless Tobacco: Never Alcohol Use Standard Drinks/Week Comments No 0 (1 standard drink = 0.6 oz pur e alcohol) [facility] Utilities Answer Date Recorded In the past 12 months has TBS, gas, oil, or water [employer] threatened to shut off services in your home? No 07/22/2024 Overall Financial Resource Strain (CARDIA) Answe r Date Recorded How hard is it for you to pa y for the very basics like food, housing, medical care, and heating? Not hard at all 07/22/2024 PHQ-2 Answer Date Recorded PHQ-2 Total Score 0 07/22/2024 [facility] of Occupat ional Health - Occupational Stress [...] things needed for daily living? No 01/21/2020 [facility] IP Transportation Answer [...] Determine Rows 4-10 0 07/21/2024 10:04 PM MAHIT Tanya Taylor RN * Is the person deaf or does he/she have serious difficulty hearing? Answer Date of Assessment Author No 03/23/2024 10:00 AM EST UebTiffany corona, CCMA * Is the person blind or does he/she have serious difficulty seeing even when wearing glasses? Answer Date of Assessment Author No 03/23/2024 10:00 AM EST UebelTiffany CCMA * Does this person have serious difficulty walking or climbing stairs? Answer Date of Assessment Author Yes 03/23/2024 10:00 AM EST UebTiffany corona CCMA * Does this person have difficulty dressing or bathing? Answer Date of Assessment Author No 03/23/2024 10:00 AM EST Tiffany Balderrama CCMA * Because of a physical, mental or emotional condition, does this person have difficulty doing errands alone such as visiting a doctor's office or shopping? Answer Date of Assessment Author No 03/23/2024 10:00 AM EST Tiffany Balderrama CCMA * Question Answer Date of Assessment Author Little interest or pleasure in doing things 0 07/22/2024 10:52 AM Aviva Bynum MSW Feeling down, depressed, or hopeless 0 07/22/2024 10:52 AM Aviva Bynum MSW PHQ-2 Total Score 0 07/22/2024 10:52 AM Aviva Bynum MSW * PHQ-9 Total Score Answer Date of Assessment Author 0 07/22/2024 10:52 AM Tiffany Bynum MSW * PHQ-2 Total Score Answer Date of Assessment Author 0 07/22/2024 10:52 AM Tiffany Bynum MSW * Suicide Severity Rating Answer Date of Assessment Author No Risk 07/21/2024 4:08 PM Genesis Carey RN * [place] Suicide Severity Rating Scale (Q shift for [...] Blood Pressure 128/56(2024 9:08 AM EDT) No Juila Chicas, DAVID BMI (Calculated) < 30 General 41.9(07/22/19 9:49 PM EDT) No Julia Chicas, DAVID Maintain a healthy diet, exercise regularly and maintain an ideal body weight General Kristi Lo CCMA HEMOGLOBIN A1C < 7.0 Result Component [...] as of this encounter Care Teams Manager Brand Relationship Specialty Start Date End Date Viridiana Oropeza MD [address] [place] [address] PCP - General 01/19/09 09/14/24 Pankaj Navarro MD [address] [place] [address] Physician Otolaryngology 09/18/23 documented as of this encounter
--- OUTSIDE RECORDS SUMMARY | 2024-09-15 12:38 | XMS_ITS | Encounter Summary ---
Author Organization [facility] Address [address] [place] [address] Care Team Providers Care Guide Dog Mobility Instructor Name Role Phone Viridiana Oropeza MD Primary Care Provider [phone] Gerardo Mcbride Unavailable [phone] Reason for Visit * Reason Onset [...] st Contact Info) Description 07/20/2024 Results Follow-Up [facility] [address] [place] [id number] Wilfredo Forte MD [address] [place] [address] [address] [place] [address] abnormal labs (Mr. Gosss labwork showed an [...] answer 05/04/2024 How often do you attend [facility] or shinto services? Patient unable to answer 05/04/2024 Do you belong to any clubs o r organizations such as voodoo groups, unions, fraternal or athletic groups, or [...] Recorded Patient Health Questionnaire-2 Score 0 06/15/2024 [facility] - Occupational Stress Questionnaire [...] any time in the past 12 m [facility], were you homeless or living in a group home (including now)? No 05/04/2024 Utilities Answer [...] documented as of this encounter Care Teams Guide Dog Mobility Instructor Relationship Specialty Start Date End Date Viridiana Oropeza MD [address] [place] [address] PCP - General 03/13/22 Gerardo Mcbride [address] [place] [address] 08/23/23 documented as of this encounter
--- OUTSIDE RECORDS SUMMARY | 2024-09-15 12:38 | XMS_ITS | Encounter Summary ---
Author Organization [facility] [place] [address] Care Team Providers Care Math And Sciences Department Chair Name Role Phone Viridiana Oropeza MD Primary Care Provider [phone] Pankaj Navarro MD Unavailable [phone] Encounter Details Date Type Department Care Team (Latest Contact Info) Description 07/21/2024 Travel Social History Tobacco Use Types Packs/Day Years Used Date Smoking Tobacco: Never Passive Smoke Exposure: Never Smokeless Tobacco: Never Alcohol Use Standard Drinks/Week Comments No 0 (1 standard drink = 0.6 oz pur e alcohol) [facility] Utilities Answer Date Recorded In the past 12 months has [employer] electric, gas, oil, or water company threatened to shut off services in your home? No 07/22/2024 Overall Financial Resource Strain (CARDIA) Answe r Date Recorded How hard is it for you to pa y for the very basics like food, housing, medical care, and heating? Not hard at all 07/22/2024 PHQ-2 Answer Date Recorded PHQ-2 Total Score 0 07/22/2024 [facility] of Occupat ional Health - Occupational Stress [...] things needed for daily living? No 01/21/2020 [facility] IP Transportation Answer D ate [...] Assessment Author No 03/23/2024 10:00 AM LENORA ArboledacaricjTiffany CCMA * Does this person have serious difficulty walking or climbing stairs? Answer Date of Assessment Author Yes 03/23/2024 10:00 AM Tiffany Mcculloughnancy Leon CCMMunir * Does this person have difficulty dressing or bathing? Answer Date of Assessment Author No 03/23/2024 10:00 AM Tiffany Mcculloughnancy Leon CCMMunir * Because of a physical, mental or emotional condition, does this person have difficulty doing errands alone such as visiting a doctor's office or shopping? Answer Date of Assessment Author No 03/23/2024 10:00 AM LENORA Balderrama Tiffany carrizalesnancy Leon CCMMunir * Suicide Severity Rating Answer Date of Assessment Author No Risk 07/21/2024 4:08 PM EDT Genesis Dumnot RN * [place] Suicide Severity Rating Scale (Q shift for [...] documented as of this encounter Care Teams Math And Sciences Department Chair Relationship Specialty Start Date End Date Viridiana Oropeza MD [address] [place] [address] PCP - General 01/19/09 09/14/24 Pankaj Navarro MD [address] [place] [address] Physician Otolaryngology 09/18/23 documented as of this encounter
--- OUTSIDE RECORDS SUMMARY | 2024-09-15 12:38 | XMS_ITS | Encounter Summary ---
Author Organization [facility] Address [address] [place] [id number] Care Team Providers Care Pattern Cleaner Name Role Phone Viridiana Oropeza MD Primary Care Provider [phone] Gerardo Mcbride Unavailable [phone] Reason for Referral * Consultation (Routine) - Closed Specialty Diagnoses / Procedures Referred By Contac t Referred To Contact Orthopaedic Surgery Diagnoses Pain in right hip Pain in left hip Cristobal Rosales PA [address] [place] [address] Phone: tel: fax: Alejandro Rojas MD [address] [facility] [address] [place] [address] Phone: tel: fax: Referral ID Status Reason Start Date Expiration Date V isits Requested Visits Authorized [id number] Closed Specialty Services Required 03/08/2022 09/07/2023 1 1 Encounter Details Date Type Department Care Team (Late st Contact Info) Description 03/08/2022 Community Orders Community [facility] [address] [place] [address] Cristobal Rosales PA [address] [place] [address] Pain in right hip (Primary [...] documented as of this encounter Care Teams Pattern Cleaner Relationship Specialty Start Date End Date Viridiana Oropeza MD [address] [place] [address] PCP - General 03/13/22 Gerardo Mcbride [address] [place] [address] 08/23/23 documented as of this encounter
--- OUTSIDE RECORDS SUMMARY | 2024-09-15 12:38 | XMS_ITS | Encounter Summary ---
Author Organization [facility] Address [address] [place] [address] Care Team Providers Care Barrel Tester And Drainer Name Role Phone Viridiana Oropeza MD Primary Care Provider [phone] Gerardo Mcbride Unavailable [phone] Encounter Details Date Type Department Care [...] often do you attend [facility] or anabaptism services? Patient unable to answer 05/04/2024 Do you belong to any clubs o r organizations such as anabaptism groups, unions, fraternal or athletic groups, or [...] Recorded Patient Health Questionnaire-2 Score 0 06/15/2024 [facility] of Occupat ional Health - Occupational [...] any time in the past 12 m [facility], were you homeless or living in a longterm (including now)? No 05/04/2024 Utilities Answer Date Recorded In the past 12 months has [employer] electric, gas, oil, or water company threatened [...] documented as of this encounter Care Teams Barrel Tester And Drainer Relationship Specialty Start Date End Date Viridiana Oropeza MD [address] [place] [address] PCP - General 03/13/22 Gerardo Mcbride [address] [place] [address] 08/23/23 documented as of this encounter
--- OUTSIDE RECORDS SUMMARY | 2024-09-15 12:38 | XMS_ITS | Encounter Summary ---
Author [place] [address] Care Team Providers Care Public Welfare Worker Name Role Phone Viridiana Oropeza MD Primary Care Provider [phone] Pankaj Navarro MD Unavailable Reason for Visit * Reason Onset Date Comments Refill 07/07/2024 Percocet refill request Encounter Details Date Type Department Care Team (Late st Contact Info) Description 07/07/2024 Telephone [facility] [address] [place] [address] Viridiana Oropeza MD [address] [place] [address] Refill (Percocet refill request) Social History Tobacco Use Types Packs/Day Years Used Date Smoking Tobacco: Never Passive Smoke Exposure: Never Smokeless Tobacco: Never Alcohol Use Standard Drinks/Week Comments No 0 (1 standard drink = 0.6 oz pur e alcohol) [facility] Utilities Answer Date Recorded In the past 12 months has [employer], gas, oil, or water [employer] threatened to shut off services in your home? No 07/22/2024 Overall Financial Resource Strain (CARDIA) Answe r Date Recorded How hard is it for you to pa y for the very basics like food, housing, medical care, and heating? Not hard at all 07/22/2024 PHQ-2 Answer Date Recorded PHQ-2 Total Score 0 07/22/2024 [facility] [place] of Occupat ional [facility] - Occupational Stress Questionnaire Answer Date Recorded [...] things needed for daily living? No 01/21/2020 [facility] IP Transportation Answer D ate Recorded In [...] 07/21/2024 4:08 PM Genesis Carey RN * [place] Suicide Severity Rating Scale (Q shift for [...] Richey RMA - 07/07/2024 9:54 AM EDT Pharmacy:[id number] [place] [address] [facility] [phone] Controlled Contract Updated / Signed 08/17/2022- [facility] Informed Consent Updated / Signed 08/17/2022 [...] w/ prescribing provider: 09/16/24 Pharmacy & Location: [facility] [address] [place] [address] [address] Return Method of Communication: N/A Additional Information: [...] documented as of this encounter Care Teams Public Welfare Worker Relationship Specialty Start Date End Date Viridiana Oropeza MD [address] [place] [address] PCP - General 01/19/09 09/14/24 Pankaj Navarro MD [address] [place] [address] Physician Otolaryngology 09/18/23 documented as of this encounter
--- OUTSIDE RECORDS SUMMARY | 2024-09-15 12:38 | XMS_ITS | Encounter Summary ---
Author Organization Healthcare Address [address] [place] [address] Care Team Providers Care Utility Agent Name Role Phone Viridiana Oropeza MD Primary Care Provider [phone] Gerardo Mcbride Unavailable [phone] Encounter Details Date Type Department Care Team (Late st Contact Info) Description 08/05/2024 Telephone [facility] [address] [place] [address] Roxana Wagoner Social History Tobacco [...] How often do you attend chur or spiritism services? Patient unable to answer 05/04/2024 Do you belong to any clubs o r organizations such as alevism groups, unions, fraternal or athletic groups, or [...] Recorded Patient Health Questionnaire-2 Score 0 06/[facility]/20[facility] - Occupational Stress Questionnaire Answer Date [...] time in the past 12 m [facility], were you homeless or living in a senior living (including now)? No 05/04/2024 Utilities Answer Date [...] 3:10 PM EDT Wilfredo Forte MD P [facility] Clinical Middle School Director I saw Mr. Chauhan two weeks ago. His labwork showed elevated CRP, WBC 21 and newly elevated creatinine consistent with renal failure. I contacted him and advised him to go to the ED for evaluation. He was going to do that at [facility] but I dont see that he did that. Can someone follow up with him and see if he went somehwere for evaluation. Updated Care Everywhere and notified the provider the patient was seen in the ED at [facility] and admitted. Updated records and results crossed over to [facility]. * Telephone Encounter - Roxana Wagoner - [...] documented as of this encounter Care Teams Utility Agent Relationship Specialty Start Date End Date Viridiana Oropeza MD [address] [place] [address] PCP - General 03/13/22 Gerardo Mcbride [address] [place] [address] 08/23/23 documented as of this encounter
--- OUTSIDE RECORDS SUMMARY | 2024-09-15 12:38 | XMS_ITS | Encounter Summary ---
Author Organization [facility] Address [address] [place] [address] Care Team Providers Care Multiple Spindle Screw Machine Operator Name Role Phone Viridiana Oropeza MD Primary Care Provider [phone] RaeGerardo Unavailable [phone] Reason for Visit * Reason Onset Date Comments HCN - Patient Message 07/17/2024 Encounter Details Date Type Department Care Team ([facility] st Contact Info) Description 07/17/2024 Telephone [facility] [address], [address] [place] [address] Alejandro Rojas MD [address] [place] [address] HCN - Patient Message Social [...] often do you attend chur ch or taoist services? Patient unable to answer 05/04/2024 Do [...] Recorded Patient Health Questionnaire-2 Score 0 06/15/2024 [facility] - Occupational Stress Questionnaire [...] any time in the past 12 m [facility], were you homeless or [...] for Call: Adela Chase is calling from [employer] is requesting call back regarding pt has missedcouple of PT visit please call to advise Best contact number: [phone] Optimal time of day to reach caller: [...] documented as of this encounter Care Teams Multiple Spindle Screw Machine Operator Relationship Specialty Start Date End Date Viridiana Oropeza MD [address] [place] [address] PCP - General 03/13/22 Gerardo Mcbride [address] [place] [address] 08/23/23 documented as of this encounter
--- OUTSIDE RECORDS SUMMARY | 2024-09-15 12:38 | XMS_ITS | Encounter Summary ---
Author Organization [place] [address] Care Team Providers Care Medical Social Consultant Name Role Phone Viridiana Oropeza MD Primary Care Provider [phone] Pankaj Navarro MD Unavailable [phone] Reason for Visit * Reason Onset Date Comments Refill 06/05/2024 Oxycodone refill request Encounter Details Date Type Department Care Team (Late st Contact Info) Description 06/05/2024 Telephone [facility] [address] [place] [address] Viridiana Oropeza MD [address] [place] [address] Refill (Oxycodone refill request) Social History Tobacco Use Types Packs/Day Years Used Date Smoking Tobacco: Never Passive Smoke Exposure: Never Smokeless Tobacco: Never Alcohol Use Standard Drinks/Week Comments No 0 (1 standard drink = 0.6 oz pur e alcohol) [facility] Utilities Answer Date Recorded In the past 12 months has [employer], gas, oil, or water [employer] threatened to shut off services in your home? No 07/22/2024 Overall Financial Resource Strain (CARDIA) Answe r Date Recorded How hard is it for you to pa y for the very basics like food, housing, medical care, and heating? Not hard at all 07/22/2024 PHQ-2 Answer Date Recorded PHQ-2 Total Score 0 07/22/2024 [facility] [place] of Occupat ional Health - Occupational Stress [...] things needed for daily living? No 01/21/2020 [facility] IP Transportation Answer D [...] 11:03 AM EDT Fidencio Rodriguez RN * [place] Suicide Severity Rating Scale (Q shift for [...] w/ prescribing provider: 06/08/24 Pharmacy & Location: [facility] [address] [place] [address] [address] [place] [address] Return Method of Communication: Phone Call Additional Information: [...] documented as of this encounter Care Teams Medical Social Consultant Relationship Specialty Start Date End Date Viridiana Oropeza MD [address] [place] [address] PCP - General 01/19/09 09/14/24 Pankaj Navarro MD [address] [place] [address] Physician Otolaryngology 09/18/23 documented as of this encounter
--- OUTSIDE RECORDS SUMMARY | 2024-09-15 12:39 | XMS_ITS | Clinical Summary ---
Author Organization [facility] Address [address] [place] [address] Care Team Providers Care Bean Picker Name Role Phone Pcp, No Primary Care [...] therelease of HIV test results or diagnoses. [id number] Allergies Active Allergy Reactions Criticality Noted [...] [facility] MEDIC[facility] B Care Teams Bean Picker Relationship Specialty Start Date End Date Pcp, No No Address PCP - General 08/25/21
--- OUTSIDE RECORDS SUMMARY | 2024-09-15 12:39 | XMS_ITS | Encounter Summary ---
Author Organization [place] [address] Care Team Providers Care Public Health Aide Name Role Phone Pankaj Navarro MD Unavailable [phone] Reason for Visit * Reason Onset Date Comments Central Patient Navigator Outreach 09/15/2024 AWV Questionnaire Encounter Details Date Type Department Care Team (Late st Contact Info) Description 09/15/2024 Patient Outreach SEP [facility] [address] [place], [place] [id number] Viridiana Oropeza MD [address] [place], [place] [id number] Central Patient Navigator Outreach (AWV Questionnaire) Social History Tobacco Use Types Packs/Day Years Used Date Smoking Tobacco: Never Passive Smoke Exposure: Never Smokeless Tobacco: Never Alcohol Use Standard Drinks/Week Comments No 0 (1 standard drink = 0.6 oz pur e alcohol) [facility] Utilities Answer Date Recorded In the past 12 months has [employer], gas, oil, or water [employer] threatened to shut off services in your home? No 07/22/2024 Overall Financial Resource Strain (CARDIA) Answe r Date Recorded How hard is it for you to pa y for the very basics like food, housing, medical care, and heating? Not hard at all 07/22/2024 PHQ-2 Answer Date Recorded PHQ-2 Total Score 0 07/22/2024 [facility] [place] [place] of Occupat ional Health - Occupational Stress [...] things needed for daily living? No 01/21/2020 [facility] IP Transportation Answer D ate Recorded [...] documented in this encounter Progress Notes * Georgia Ayers - 09/15/2024 8:24 AM EDT Patient Outreach: Pre-Visit Questionnaires Attempt Count: 1st Care Gaps Addressed windows application administrator: Medicare Questionnaire Outcome:pt states does not see [facility] provider for primary care needs--now goes to [facility]--advised to contact ins and removed Dr. Oropeza as primary care provider Call back number: [phone] documented in this encounter Plan of Treatment [...] as of this encounter Care Teams Public Health Aide Relationship Specialty Start Date End Date Pankaj Navarro MD [address] [place], [place] [address] Physician Otolaryngology 09/18/23 documented as of this encounter
--- OUTSIDE RECORDS SUMMARY | 2024-09-15 12:39 | XMS_ITS | Encounter Summary ---
Author Organization [place] Address [facility] [place] [address] Care Team Providers Care Night Assistant Name Role Phone Viridiana Oropeza MD Primary Care Provider [phone] Pankaj Navarro MD Unavailable [phone] Encounter Details Date Type Department Care Team (Late st Contact Info) Description 06/08/2024 Lab Requisition [facility] [place] [address] Wilfredo Forte MD Infection following a procedure, superficial incisional surgical site, subsequent encounter Social History Tobacco Use Types Packs/Day Years Used Date Smoking Tobacco: Never Passive Smoke Exposure: Never Smokeless Tobacco: Never Alcohol Use Standard Drinks/Week Comments No 0 (1 standard drink = 0.6 oz pur e alcohol) [facility] Utilities Answer Date Recorded In the past [...] Date Recorded PHQ-2 Total Score 0 03/23/2024 [facility] [place] of Occupat ional Health - Occupational Stress [...] 01/21/2020 [facility] IP Transportation Answer D ate Recorded In [...] General 41.9(07/22/19 9:49 PM EDT) No Julia Chicas RN Maintain a healthy diet, exercise regularly and maintain an ideal body weight General No Kristi Balderrama CCMA HEMOGLOBIN A1C < 7.0 Result Component 6.4( 11:37 AM EDT) No Julia Chicas RN documented as of this encounter Procedures [...] 06/08/2024 8:47 PM EDT [facility] Blood VENOUS BLOOD / Unknown 06/08/2024 10:00 AM EDT 06/08/2024 4:41 PM EDT Wilfredo Forte MD CHEMISTRY ORDERABLES Final Re sult Performing Organization Address [facility] Co de Phone Number [facility] [address] [facility] [facility] , [place] [address] * (ABNORMAL) HEPATIC FUNCTION PANEL (06/08/2024 10:00 AM EDT) [facility] Total Protein 6.0(L) 6.4 - 8.3 gm/dL [...] ORDERABLES Final Re sult Performing Organization Address [facility]/ZIP Co de Phone Number [facility] [employer], [facility] [address] , [place] [address] * CREATININE (06/08/2024 10:00 AM EDT) Creatinine 1.06 0.67 - 1.30 mg/dL 06/08/2024 8:47 PM EDT [facility] [employer] eGFR (CKD-EPIcr 2020) 77 >=60 mL/min/1.7 3 m2 06/08/2024 8:47 PM EDT [facility] [employer] Comment:Estimated GFR was ca lculated using the CKD-EPIcr (2020) equation refit without race. The equation is recommended by the National Kidney Foundation - [place] Society of Nephrology Task Force. Blood VENOUS BLOOD / Unknown 06/08/2024 10:00 AM EDT 06/08/2024 4:41 PM EDT us Wilfredo Forte MD CHEMISTRY ORDERABLES Final Re sult [facility] [employer], [employer] [address] [facility] [facility] [address] , [place] [address] * (ABNORMAL) CBC WITH DIFF (06/08/2024 10:00 AM EDT) WBC 9.0 3.7 - 10.3 x10(3)/mcL 06/08/2024 5:09 PM EDT [facility] RBC 2.89(L) 4.60 - 6.10 x10(6)/mcL 06/08/2024 5:09 PM EDT [facility] Hgb 8.3(L) 13.7 - 17.5 g/dL 06/08/2024 5:09 PM EDT [facility] Hct 28.3(L) 40.0 - 51.0 % 06/08/2024 5:09 PM EDT [facility] MCV 97.9 80.0 - 100.0 fL 06/08/2024 5:09 PM EDT [facility] MCH 28.7 26.0 - 34.0 pg 06/08/2024 5:09 PM EDT [facility] MCHC 29.3(L) 30.7 - 35.5 g/dL 06/08/2024 5:09 PM EDT [facility] RDW 15.2(H) <=14.9 % 06/08/2024 5:09 PM EDT [facility] Platelet 294 155 - 369 x10(3)/[facility] 06/08/2024 5:09 PM EDT [facility] MPV 10.8 8.8 - 12.5 fL 06/08/2024 5:09 PM EDT [facility] Neut Percent 37.7 % 06/08/2024 5:09 PM EDT [facility] Comment:Neutrophils equals s egs plus bands Imm Gran% 0.2 % 06/08/2024 5:09 PM EDT [facility] Comment:Automated count of m etamyelocytes, myelocytes and promyelocytes. Lymph Percent 45.4 % 06/08/2024 5:09 PM EDT [facility] Placer Percent 9.0 % 06/08/2024 5:09 PM EDT [facility] Eos Percent 7.3 % 06/08/2024 5:09 PM EDT [facility] Baso Percent 0.4 % 06/08/2024 5:09 PM EDT [facility] Neut # 3.4 1.6 - 6.1 x10(3)/[facility] 06/08/2024 5:09 PM EDT [facility] Comment:Neutrophils equals s egs plus bands IMMGRAN# 0.0 0.0 - 0.1 x10(3)/[facility] 06/08/2024 5:09 PM EDT [facility] Comment:Automated count of m etamyelocytes, myelocytes and promyelocytes. An absolute IG <0.1 is reported as 0.0. Lymph # 4.1(H) 1.2 - 3.9 x10(3)/mcL 06/08/2024 5:09 PM EDT [facility] Placer # 0.8 0.3 - 0.9 x10(3)/[facility] 06/08/2024 5:09 PM EDT [facility] Eos# 0.7(H) 0.0 - 0.5 x10(3)/[facility] 06/08/2024 5:09 PM EDT [facility] Baso # 0.0 0.0 - 0.1 x10(3)/[facility] 06/08/2024 5:09 PM EDT [facility] [employer] Blood VENOUS BLOOD / Unknown 06/08/2024 10:00 AM EDT 06/08/2024 4:41 PM EDT Wilfredo Forte MD HEMATOLOGY ORDERABLES Final R esult [facility] [employer] [address] , [place] [address] * (ABNORMAL) BLOOD UREA NITROGEN (06/08/2024 10:00 AM EDT) BUN 5(L) 8 - 23 mg/dL 06/08/2024 8:47 PM EDT [employer] Blood VENOUS BLOOD / Unknown 06/08/2024 10:00 AM EDT 06/08/2024 4:41 PM EDT Wilfredo Forte MD CHEMISTRY ORDERABLES Final Re sult Performing Organization Address City/[facility]/ZIP Co de Phone Number [facility] [employer] [facility] [address] , [place] [address] documented in this encounter Visit Diagnoses Diagnosis [...] documented as of this encounter Care Teams Night Assistant Relationship Specialty Start Date End Date Viridiana Oropeza MD [address] [place] [address] PCP - General 01/19/09 09/14/24 Pankaj Navarro MD [address] [place] [address] Physician Otolaryngology 09/18/23 documented as of this encounter
--- OUTSIDE RECORDS SUMMARY | 2024-09-15 12:39 | XMS_ITS | Encounter Summary ---
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 No 01/21/2020 [facility] IP Transportation Answer D ate Recorded [...] ORDERABLES Final Re sult Performing Organization Address [facility]/[place] [address] * CREATININE (06/02/2024 10:00 AM EDT) Creatinine 1.13 0.67 - 1.30 mg/dL 06/02/2024 6:27 PM EDT [facility] [email or web address] eGFR (CKD-EPIcr 2020) 71 >=60 mL/min/1.7 3 m2 06/02/2024 6:27 PM EDT [employer] Comment:Estimated GFR was ca lculated using the CKD-EPIcr (2020) equation refit without race. The equation is recommended by the National Kidney Foundation - [place] Society of Nephrology Task Force. Blood VENOUS BLOOD / Unknown 06/02/2024 10:00 AM EDT 06/02/2024 2:43 PM EDT us Wilfredo Forte MD CHEMISTRY ORDERABLES Final Re sult Performing Organization Address City/[facility]/ZIP Co de Phone Number [employer] [address] [facility], [address] [place] [id number] * (ABNORMAL) C-REACTIVE PROTEIN (06/02/2024 10:00 AM EDT) CRP 26.44(H) <=5.00 mg/L 06/02/2024 6:27 PM EDT [employer] Blood VENOUS BLOOD / Unknown 06/02/2024 10:00 AM EDT 06/02/2024 2:43 PM EDT Wilfredo Forte MD CHEMISTRY ORDERABLES Final Re sult Performing Organization Address City/[facility]/ZIP Co de Phone Number [facility] [address] [facility] , [place] [address] * (ABNORMAL) HEPATIC FUNCTION PANEL (06/02/2024 10:00 AM EDT) Total Protein 5.9(L) 6.4 - 8.3 gm/dL [...] 10:00 AM EDT 06/02/2024 2:43 PM EDT us Wilfredo Forte MD CHEMISTRY ORDERABLES Final Re yoan Performing Organization Address City/[facility]/ZIP Co de Phone Number [facility] [address] [facility] , [place] [address] * (ABNORMAL) CBC WITH DIFF [...] 06/02/2024 3:23 PM EDT [facility] MCV 97.1 80.0 - 100.0 fL 06/02/2024 3:23 PM EDT [facility] MCH 29.3 26.0 - 34.0 pg 06/02/2024 3:23 PM EDT [facility] MCHC 30.2(L) 30.7 - 35.5 g/dL 06/02/2024 3:23 PM EDT [facility] RDW 15.6(H) <=14.9 % 06/02/2024 3:23 PM EDT [facility] Platelet 248 155 - 369 x10(3)/mcL 06/02/2024 3:23 PM EDT [facility] MPV 10.3 8.8 - 12.5 fL 06/02/2024 3:23 PM EDT [facility] Neut Percent 39.4 % 06/02/2024 3:23 PM EDT [facility] Comment:Neutrophils equals s egs plus bands Imm Gran% 0.2 % 06/02/2024 3:23 PM EDT [facility] Comment:Automated count of m etamyelocytes, myelocytes and promyelocytes. Lymph Percent 40.8 % 06/02/2024 3:23 PM EDT [facility] [place] Percent 9.8 % 06/02/2024 3:23 PM EDT [facility] Eos Percent 9.3 % 06/02/2024 3:23 PM EDT [facility] Baso Percent 0.5 % 06/02/2024 3:23 PM EDT [facility] Neut # 3.2 1.6 - 6.1 x10(3)/mcL 06/02/2024 3:23 PM EDT [facility] Comment:Neutrophils equals s egs plus bands IMMGRAN# 0.0 0.0 - 0.1 x10(3)/mcL 06/02/2024 3:23 PM EDT [facility] Comment:Automated count of m etamyelocytes, myelocytes and promyelocytes. An absolute IG <0.1 is reported as 0.0. Lymph # 3.3 1.2 - 3.9 x10(3)/mcL 06/02/2024 3:23 PM EDT [facility] [place] # 0.8 0.3 - 0.9 x10(3)/mcL 06/02/2024 3:23 PM EDT [facility] Eos# 0.8(H) 0.0 - 0.5 x10(3)/mcL 06/02/2024 3:23 PM EDT [facility] Baso # 0.0 0.0 - 0.1 x10(3)/mcL 06/02/2024 3:23 PM EDT [facility] Blood VENOUS BLOOD / Unknown 06/02/2024 10:00 AM EDT 06/02/2024 2:43 PM EDT Wilfredo Forte MD HEMATOLOGY ORDERABLES Final R esult Performing Organization Address [facility] Co de Phone Number [facility] [employer], [facility] [address] [facility] , [place] [address] * (ABNORMAL) BLOOD UREA NITROGEN (06/02/2024 10:00 AM EDT) [facility] BUN 6(L) 8 - 23 mg/dL 06/02/2024 6:27 PM EDT [facility] [employer], [facility] Blood VENOUS BLOOD / Unknown 06/02/2024 10:00 AM EDT 06/02/2024 2:43 PM EDT Wilfredo Forte MD CHEMISTRY ORDERABLES Final Re sult Performing Organization Address [facility] Co de Phone Number [facility] [email or web address], [facility] [address] [facility] , [place] [address] documented in this encounter Visit [...] documented as of this encounter Care Teams Refractory Furnace Designer Relationship Specialty Start Date End Date Viridiana Oropeza MD [address] [place] [address] PCP - General 01/19/09 09/14/24 Pankaj Navarro MD [address] [place] [address] Physician Otolaryngology 09/18/23 documented as of this encounter
== END 2024-09-14 23:59 | disposition home or self-care (01) ==
LOC: LAB.DROPOF 09-15 12:35
PROVIDERS: PCP Family Medicine; Visit Provider Family Medicine
DX: N40.0 Benign prostatic hyperplasia without lower urinary tract symptoms (principal); N18.9 Chronic kidney disease, unspecified; R20.0 Anesthesia of skin; R29.898 Other symptoms and signs involving the musculoskeletal system; M25.50 Pain in unspecified joint
CPT/HCPCS: 80053; 82607; 83735; 84153; 85007; 85025; 85651; 86140

== ENCOUNTER 2024-09-16 13:38 | Outpatient (RCR) | payer MEDICARE, MEDICAID, SELFPAY | END 2024-09-16 23:59 | disposition home or self-care (01) | LOC: PT 13:38 | PROVIDERS: PCP Family Medicine; Visit Provider Family Medicine | DX: R20.0 Anesthesia of skin (principal); R20.2 Paresthesia of skin | CPT/HCPCS: 97014; 97035; 97110; G0283 ==

== ENCOUNTER 2024-09-21 10:00 | Outpatient (CLI) | payer MEDICARE, MEDICAID, SELFPAY ==
--- OUTSIDE RECORDS SUMMARY | 2018-12-31 14:56 | XMS_ITS | Encounter Summary ---
Author Organization [place] [address] Care Team Providers Care Pickup Driver Name Role Phone Viridiana Oropeza MD Primary Care Provider [phone] Encounter Details Date Type Department Care Team (Latest Contact Info) Description 12/31/2018 1:56 PM [facility] Hospital Encounter [facility] Referral Lab 1 [place] [address] Fahad Kennedy MD [address] [place] [address] Pain in right hip Social History Tobacco Use Types Packs/Day Years Used Date Smoking Tobacco: Never Passive Smoke Exposure: Never Smokeless Tobacco: Never Alcohol Use Standard Drinks/Week Comments No 0 (1 standard drink = 0.6 oz pur e alcohol) [facility] Utilities Answer Date Recorded In the past 12 months has [employer] electric, gas, oil, or water company threatened to shut off services in your home? No 07/22/2024 Overall Financial Resource Strain (CARDIA) Answe r Date Recorded How hard is it for you to pa y for the very basics like food, housing, medical care, and heating? Not hard at all 07/22/2024 PHQ-2 Answer Date Recorded PHQ-2 Total Score 0 07/22/2024 [facility] [place] of Occupat ional Health - Occupational Stress [...] things needed for daily living? No 01/21/2020 [facility] IP Transportation Answer D ate Recorded In [...] 4:08 PM EDT Genesis Dumont RN * [place] Suicide Severity Rating Scale (Q shift for [...] documented as of this encounter Care Teams Pickup Driver Relationship Specialty Start Date End Date Viridiana Oropeza MD [address] [place] [address] PCP - General 01/19/09 09/14/24 documented as of this encounter
--- OUTSIDE RECORDS SUMMARY | 2024-07-21 16:39 | XMS_ITS | Encounter Summary ---
Author [place] [address] Care Team Providers Care Comic Book Artist Name Role Phone Viridiana Oropeza MD Primary Care Provider Pankaj Navarro MD Unavailable [phone] Reason for Visit * Reason Comments Abnormal Lab high wbc, referred d ue to possible hip infection after replacement * Auth/Cert/Inpt (Routine) Specialty Diagnoses / Procedures Referred By Contpedro t Referred To Contact Diagnoses ZAC (acute kidney injury) Referral ID Status Reason Start Date Expiration Date Visits Re quested Visits Authorized [id number] 1 1 Encounter Details Date Type Department Care Team (Latest Contact Info) Description 07/21/2024 4:39 PM EDT - 07/26/2024 4:06 PM EDT Hospital Encounter EDG 2B [place] [id number] Cat Jules MD [address] [place] [address] Anil Thompson DO [address] [place] [address] ZAC (acute kidney injury) (Primary Dx); Pancolitis (HCC) Discharge Disposition: Home or Self Care Social History Tobacco Use Types Packs/Day Years Used Date Smoking Tobacco: Never Passive Smoke Exposure: Never Smokeless Tobacco: Never Alcohol Use Standard Drinks/Week Comments No 0 (1 standard drink = 0.6 oz pur e alcohol) [facility] Utilities Answer Date Recorded In the past 12 months has [employer], gas, oil, or water Adjacent Applications threatened to shut off services in your home? No 07/22/2024 Overall Financial Resource Strain (CARDIA) Answe r Date Recorded How hard is it for you to pa y for the very basics like food, housing, medical care, and heating? Not hard at all 07/22/2024 PHQ-2 Answer Date Recorded PHQ-2 Total Score 0 07/22/2024 [facility] [place] [employer] [facility] [employer] - Occupational Stress [...] things needed for daily living? No 01/21/2020 [facility] IP Transportation Answer D ate Recorded In [...] Assessment Author Yes 03/23/2024 10:00 AM Tiffany Mcculloguh CCMA * Does this person have difficulty [...] 4:08 PM EDT Genesis Dumont RN * [place] Suicide Severity Rating Scale (Q shift for [...] Thompson DO - 07/26/2024 1:18 PM EDT [facility] Discharge Summary Patient Name: Jani Ingram [...] Your Medications These medications were sent to [facility] [address] [place] [address] [place] [address] Hours: Saturday-Saturday 8:00am - 6:30pm vancomycin 125 mg Cap Condition at Discharge: good Disposition: Home Follow-up: [place] [place] [address] [place] [address] Viridiana Oropeza MD [address] [facility] [address] Follow up in 3 day(s) [...] Means Destination Comment s Home or Self Custodial documented in this encounter Progress Notes * KinmanRoxi CPhT - 07/26/2024 3:50 PM EDT Discharge Medication Delivery Service DMD water technician has delivered the following medications for Jani Ingram: Rx#[id number]:VANCOMYCIN 125 MG CAPSULE-125 mg EVERY 6 HOURS SCHEDULED Date/Time of Delivery: 07/26/2024 3:50 PM Delivered to: handed to son in Please contact DMD water technician with any questions. Thanks! 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 Monitor, adjust regimen as needed HTN: -BP stable 142/69 most recent -Not taking meds LITIGATION DOCKET MANAGER -Monitor Obesity: -Complicates all aspects of care D/w RN, transmitter engineer in charge, CC Dispo: Remains inpatient. 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 [...] or preferences. SW spoke to Dennis with [facility] and notified. HH orders in [facility]. No other d/c needs identified. SW/CC available should needs arise. * Nenita Hernandez RN - 07/24/2024 6:00 AM EDT Pt VSS, A/O x4, Pt having loose BMs, using urinal, PRN pain meds given 3x w/some relief, TUMS [id number] w/some relief, IV replaced, encouraged turns, [id number] on importance, ambulating w/walker and standby assist. 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 Monitor, adjust regimen as needed HTN: -BP stable 145/67 most recent -Not taking meds LITIGATION DOCKET MANAGER -Monitor Obesity: -Complicates all aspects of care D/w RN, transmitter engineer in charge, CC Dispo: Remains inpatient. VTE Prophylaxis: Qualifying [...] Ingram , : 1955 07/22/2024 Test: Per [employer] Gram-Positive Nucleic Acid blood culture test, patient is reported to have Staphylococcus spp. with with no mecA, Marilynn, or vanB resistance markers in their blood in 1/2 cultures. Time test reported to pharmacy: 1829 Lab Caller / Pharmacy Didactic Instructor: Mariah Nicolas / Rosalind Montero Action Taken: [...] IV atb's as ordered. * Aviva Mcguire, LAMINATING MACHINE OPERATOR HELPER - 07/22/2024 10:52 AM EDT 07/22/24 1051 [...] for dc planning process Does patient need detasseler? No Activities of Daily Living Prior to [...] Discussed discharge plans with Care Team at [facility] Yes, with nurse in attendance;Yes, with doctor [...] Dr. Viridiana [facility]. [facility] Pt states he can afford all his [...] d/c. Per Chart Review, [facility]. Resumption referral sent. Awaiting response. Pt states [...] here for ZAC. Will initiate vancomycin therapy [id number] mg then intermittent/pulse dosing. Will draw vancomycin [...] Thompson DO - 07/22/2024 10:39 AM EDT [facility] History and Physical Name: Jani Ingram [...] 03/15/2017 CIRCUMCISION; Surgeon: Jameson Rodriguez MD; Location: [facility] MAIN OR; Service: Urology COLONOSCOPY COLONOSCOPY N/A 06/16/2015 COLONOSCOPY ; Surgeon: Pankaj Chavez MD; Location: [facility] ENDOSCOPY; Service: Endoscopy HIP SURGERY Bilateral 1995 nasima hip repacements IR 2 LEVEL BILATERAL MEDIAL BRANCH BLOCK LUM SAC 02/18/2020 IR 2 LEVEL BILATERAL MEDIAL BRANCH BLOCK LUM SAC 02/18/2020 [facility] IMAGING SHOULDER ARTHROSCOPY Right 08/28/2016 RIGHT SHOULDER ARTHROSCOPIC ROTATOR CUFF REPAIR, DECOMPRESSION ACROMIOPLASTY ACROMIOCLAVICULAR JOINT EXCISION; Surgeon: Robbi Alvarez MD; Location: [facility] MAIN OR; Service: Orthopedics SHOULDER SURGERY Medications [...] (Patient not taking: Reported on 07/21/2024) [facility] Misc Check BS bid lisinopriL (PRINIVIL;ZESTRIL) 2.5 [...] true Transportation Needs: No Transportation Needs (07/22/2024) [facility] IP Transportation In the past 12 months, has lack of reliable transportation kept you from medical appointments, meetings, work or from getting things needed for daily living?: No Physical Activity: Inactive (07/22/2024) Exercise Vital Sign Days of Exercise per Week: 0 days Minutes of Exercise per Session: 0 min Stress: No Stress Concern Present (07/22/2024) [employer] [place] [employer] - Occupational Stress Questionnaire Feeling of Stress : Not at all Social Connections: Patient Unable To Answer (05/04/2024) Received from [facility] Social Connection and Isolation Panel [NHANES] Frequency of Communication with Friends and Family: Patient unable to answer Frequency of Social Gatherings with Friends and Family: Patient unable to answer Attends Congregational Services: Patient unable to answer Active Member of Clubs or Organizations: Patient unable to answer Attends Club or Organization Meetings: Patient unable to answer Marital Status: Patient unable to answer Intimate Partner Violence: Not At Risk (05/04/2024) Received from [facility] Humiliation, Afraid, Rape, and Kick questionnaire Fear of Current or Ex-Partner: No Emotionally Abused: No Physically Abused: No Sexually Abused: No Housing Stability: Low Risk (05/04/2024) Received from [facility] Housing Stability Vital Sign Unable to [...] INGRAM Department: DEPID Room: 2211 Gender: Male Insight Director: Karly : 1955 Requested By: LAMAR Hanson Order Number: [id number] Reading MD: Raul Gunter MD Measurements Intervals [place] Rate: 88 P: 40 PA: 170 QRS: 54 QRSD: 102 T: 50 [...] -Renal/bladder u/s ordered DM, type II: -Hold 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 Monitor, adjust regimen as needed HTN: -BP elevated 146/67 most recent -Not taking meds LITIGATION DOCKET MANAGER -Monitor Obesity: -Complicates all aspects of care D/w RN, transmitter engineer in charge, CC Code Status: Full Anil Thompson DO [...] was seen in the emergency room at [facility] on 06/27, the amoxicillin was discontinued. He [...] infection, treated by infectious disease service at [facility] in [place]. History of circumcision, colonoscopy, shoulder arthroscopy, shoulder [...] the vancomycin. The infectious disease service at [facility] had suggested amoxicillin for 3 [...] did discuss the case with the hospitalist electrician telephone, Dr. Thompson. I will follow the patient along with you and I appreciate the opportunity to see your patient. Chapo Calvin M.D. By: Brandon Job ID: [id number] Doc ID: [id number] documented in this encounter ED Notes * [...] 06/03/24 Not Taking Viridiana Oropeza MD Lanc[facility] Misc Check BS bid 04/02/24 Viridiana Oropeza [...] 03/15/2017 CIRCUMCISION; Surgeon: Jameson Rodriguez MD; Location: [facility] MAIN OR; Service: Urology COLONOSCOPY COLONOSCOPY N/A 06/16/2015 COLONOSCOPY ; Surgeon: Pankaj Chavez MD; Location: [facility] ENDOSCOPY; Service: Endoscopy HIP SURGERY Bilateral 1995 nasima hip repacements IR 2 LEVEL BILATERAL MEDIAL BRANCH BLOCK LUM SAC 02/18/2020 IR 2 LEVEL BILATERAL MEDIAL BRANCH BLOCK LUM SAC 02/18/2020 [facility] IMAGING SHOULDER ARTHROSCOPY Right 08/28/2016 RIGHT SHOULDER ARTHROSCOPIC ROTATOR CUFF REPAIR, DECOMPRESSION ACROMIOPLASTY ACROMIOCLAVICULAR JOINT EXCISION; Surgeon: Robbi Alvarez MD; Location: [facility] MAIN OR; Service: Orthopedics SHOULDER SURGERY [...] difficulty ambulating in April. He went to [facility] for evaluation. They performed a CT scan that demonstrated a [id number] cm rim enhancing fluid collection involving the hip prosthesis. He was transferred to [facility] to the OR on 05/02/24 for [...] without final read as there is no [facility] radiologist available for review at this time [...] admission here. He is agreeable. Discussed with manufacturing manager HUMPHREY (DEREK Isidro), who accepted patient to Dr. Thompson's service for further infection management and culture maturation. Patient also remains pending CT lower extremity final read. 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 Monitor, adjust regimen as needed HTN: -BP stable 145/67 most recent -Not taking meds LITIGATION DOCKET MANAGER -Monitor Obesity: -Complicates all aspects of care D/w RN, transmitter engineer in charge, CC Dispo: Remains inpatient. VTE Prophylaxis: Qualifying [...] the vancomycin. The infectious disease service at [facility] had suggested amoxicillin for 3 [...] did discuss the case with the hospitalist electrician telephone, Dr. Thompson. I will follow the patient along with you and I appreciate the opportunity to see your patient . * Critical Result Value - Fabian Espinoza RN - 07/22/2024 4:21 PM EDT Jani Ingram [id number], 1955 07/22/2024 Test Name/Result: Blood Cultures/Gram + Cocci Time: 162 Caller/Didactic Instructor: Sharee Mariee/Fabian Marcial RN R/V Action Taken: Communicated with provider via Secure Chat Time: 1624 Notified Physician/Physician Designee: Dr. Thompson * Utilization Review Notes - Korina Etienne RN - 07/22/2024 1:57 PM EDT POWERTRAIN DESIGN ENGINEER 07/22/2024 Pt was admitted as observation 07/21* [...] Oropeza. Pt states his pharmacy is [facility]. Pt states he can afford all his [...] d/c. Per Chart Review[facility] Res[facility] referral sent. Awaiting response. Pt states [...] without final read as there is no [facility] radiologist available for review at this time [...] GLUCOSE METER POC (07/26/2024 11:20 AM EDT) [facility] Glucose Meter POC 146(H) 70 - 100 mg/dL 07/26/2024 11:21 AM EDT [facility] Sample Type Capillary 07/26/2024 11:21 AM EDT [facility] Patient Status Non-Critical Patient 07/26/2024 11:21 AM EDT [facility] Blood BLOOD SPECIMEN / Unknown 07/26/2024 11:20 AM EDT 07/26/2024 11:21 AM EDT Anil Thompson DO POINT OF CARE TEST ORDERABLE S Final Result Performing Organization Address City/[facility]/ZIP Co de Phone Number [facility] [address] [place] [address] * GLUCOSE METER POC (07/26/2024 8:47 AM EDT) Glucose Meter POC 87 70 - 100 mg/dL 07/26/2024 8:48 AM EDT [facility] Sample Type Capillary 07/26/2024 8:48 AM EDT [facility] Patient Status Non-Critical Patient 07/26/2024 8:48 AM EDT [facility] Blood BLOOD SPECIMEN / Unknown 07/26/2024 8:47 AM EDT 07/26/2024 8:48 AM EDT us Anil Thompson DO POINT OF CARE TEST ORDERABLE S Final Result Performing Organization Address [facility]/ZIP Co de Phone Number [facility] [address] [place] [address] * ECG AND WAVEFORMS - TELEMETRY (07/26/2024 7:58 AM EDT) [facility] ECG INTERPRET Sinus with IVCD [facility] 07/26/2024 7:58 AM EDT Narrative [facility] - 07/26/2024 8:03 AM EDT EH - ROUTINE PA 0.20 QRS 0.11 RR 0.88 QT 0.37 QTc 0.39 See Clinical Report link for waveform capture us Unknown Provider POINT OF CARE CARDIOLOGY Final Result Performing Organization Address City/[facility]/ZIP Co de Phone Number [facility] [address] [place], [place] [id number] * (ABNORMAL) CBC WITH DIFF (07/26/2024 6:09 [...] 7:44 AM EDT [facility] [place] Percent 6.1 % 07/26/2024 7:44 AM EDT [...] 07/26/2024 7:44 AM EDT [facility] Comment:Automated count of m etamyelocytes, myelocytes and promyelocytes. An absolute IG <0.1 is reported as 0.0. Lymph # 4.9(H) 1.2 - 3.9 x10(3)/[facility] 07/26/2024 7:44 AM EDT [facility] [place] # 0.7 0.3 - 0.9 x10(3)/[facility] 07/26/2024 7:44 AM EDT [facility] Eos# 0.5 0.0 - 0.5 x10(3)/[facility] 07/26/2024 7:44 AM EDT [facility] Baso # 0.0 0.0 - 0.1 x10(3)/[facility] 07/26/2024 7:44 AM EDT [email or web address], [facility] Blood VENOUS BLOOD / Unknown Venipuncture / Unknown 07/26/2024 6:09 AM EDT 07/26/2024 7:29 AM EDT us Anil Thompson DO HEMATOLOGY ORDERABLES Final Result [email or web address], [address], [place] [address] * (ABNORMAL) GLUCOSE METER POC (07/25/2024 9:53 PM EDT) [facility] Glucose Meter POC 137(H) 70 - 100 mg/dL 07/25/2024 9:55 PM EDT [facility] Sample Type Capillary 07/25/2024 9:55 PM EDT [facility] Patient Status Non-Critical Patient 07/25/2024 9:55 PM EDT [facility] Blood BLOOD SPECIMEN / Unknown 07/25/2024 9:53 PM EDT 07/25/2024 9:55 PM EDT us Anil Thompson DO POINT OF CARE TEST ORDERABLE S Final Result [facility] [address] [place] [address] * GLUCOSE METER POC (07/25/2024 5:22 PM EDT) Pathologist [facility] Glucose Meter POC 100 70 - 100 mg/dL 07/25/2024 5:23 PM EDT [facility] Sample Type Capillary 07/25/2024 5:23 PM EDT [facility] Patient Status Non-Critical Patient 07/25/2024 5:23 PM EDT [facility] Blood BLOOD SPECIMEN / Unknown 07/25/2024 5:22 PM EDT 07/25/2024 5:23 PM EDT Anil Thompson DO POINT OF CARE TEST ORDERABLE S Final Result [facility] [address] [place] [address] * EC ECHOCARDIOGRAM LIMITED (07/25/2024 2:20 PM EDT) [facility] LV DIASTOLIC PLAX 5.2 cm PYRAMIS [...] - 100 mg/dL 07/25/2024 11:36 AM EDT [facility] Sample Type Capillary 07/25/2024 11:36 AM EDT [facility] Patient Status Non-Critical Patient 07/25/2024 11:36 AM EDT [facility] Blood BLOOD SPECIMEN / Unknown 07/25/2024 11:34 AM EDT 07/25/2024 11:36 AM EDT Anil Thompson DO POINT OF CARE TEST ORDERABLE S Final Result Performing Organization Address City/[facility]/ZIP Co de Phone Number [facility] [address] [place], [place] [id number] * ECG AND WAVEFORMS - TELEMETRY (07/25/2024 8:04 AM EDT) [facility] ECG INTERPRET NSR [facility] 07/25/2024 8:04 AM EDT Narrative [facility] - 07/25/2024 8:06 AM EDT EH - ROUTINE PA 0.20 QRS 0.11 RR 0.88 QT 0.37 QTc 0.39 See Clinical Report link for waveform capture us Unknown Provider POINT OF CARE CARDIOLOGY Final Result Performing Organization Address City/[facility]/ZIP Co de Phone Number [facility] [address] [place] [address] * (ABNORMAL) GLUCOSE METER POC (07/25/2024 7:38 AM EDT) Glucose Meter POC 107(H) 70 - 100 mg/dL 07/25/2024 7:40 AM EDT [facility] Sample Type Capillary 07/25/2024 7:40 AM EDT [facility] Patient Status Non-Critical Patient 07/25/2024 7:40 AM EDT [facility] Blood BLOOD SPECIMEN / Unknown 07/25/2024 7:38 AM EDT 07/25/2024 7:40 AM EDT us Anil Thompson DO POINT OF CARE TEST ORDERABLE S Final Result [facility] [address] [place], [place] [id number] * (ABNORMAL) CBC WITH DIFF (07/25/2024 6:23 [...] Percent 45.2 % 07/25/2024 7:56 AM EDT [facility] Comment:Neutrophils equals s egs plus bands Imm Gran% 1.1 % 07/25/2024 7:56 AM EDT [facility] Comment:Automated count of m etamyelocytes, myelocytes and promyelocytes. IG >1% represents a left shift and provides an early indication of an infection or inflammatory process. Lymph Percent 42.6 % 07/25/2024 7:56 AM EDT [facility] [place]unders Percent 5.8 % 07/25/2024 7:56 AM EDT [facility] Eos Percent 4.9 % 07/25/2024 7:56 AM EDT [facility], [facility] Baso Percent 0.4 % 07/25/2024 7:56 AM EDT [facility], [facility] Neut # 5.5 1.6 - 6.1 x10(3)/[facility] 07/25/2024 7:56 AM EDT [facility], [facility] Comment:Neutrophils equals s egs plus bands IMMGRAN# 0.1 0.0 - 0.1 x10(3)/[facility] 07/25/2024 7:56 AM EDT [facility] Comment:Automated count of m etamyelocytes, myelocytes and promyelocytes. An absolute IG <0.1 is reported as 0.0. Lymph # 5.2(H) 1.2 - 3.9 x10(3)/[facility] 07/25/2024 7:56 AM EDT [facility] Saunders # 0.7 0.3 - 0.9 x10(3)/[facility] 07/25/2024 7:56 AM EDT [facility] Eos# 0.6(H) 0.0 - 0.5 x10(3)/[facility] 07/25/2024 7:56 AM EDT [facility], [facility] Baso # 0.1 0.0 - 0.1 x10(3)/[facility] 07/25/2024 7:56 AM EDT [facility], [facility] Blood VENOUS BLOOD / Unknown Venipuncture / Unknown 07/25/2024 6:23 AM EDT 07/25/2024 7:43 AM EDT Anil Thompson DO HEMATOLOGY ORDERABLES Final Result [facility] [address] [facility] , [place] [address] * (ABNORMAL) BASIC METABOLIC PANEL (07/25/2024 6:23 AM EDT) Sodium 141 136 - 145 mmol/L 07/25/2024 8:18 AM EDT [facility] Potassium 4.3 3.5 - 5.0 mmol/L 07/25/2024 8:18 AM EDT [facility] Chloride 108(H) 98 - 107 mmol/L 07/25/2024 8:18 AM EDT [facility] Total CO2 23 22 - [...] recommended by the National Kidney Foundation - [place] Society of Nephrology Task Force. Blood VENOUS BLOOD / Unknown Venipuncture / Unknown 07/25/2024 6:23 AM EDT 07/25/2024 7:43 AM EDT Anil L Thompson DO CHEMISTRY ORDERABLES Final R esult Performing Organization Address City/[facility]/ZIP Co de Phone Number [email or web address] [employer] [address], [place] [address] * (ABNORMAL) GLUCOSE METER POC (07/24/2024 9:23 PM EDT) Glucose Meter POC 149(H) 70 - 100 mg/dL 07/24/2024 9:25 PM EDT [facility] Sample Type Capillary 07/24/2024 9:25 PM EDT [facility] Patient Status Non-Critical Patient 07/24/2024 9:25 PM EDT [facility] Blood BLOOD SPECIMEN / Unknown 07/24/2024 9:23 PM EDT 07/24/2024 9:25 PM EDT Anil Thompson DO POINT OF CARE TEST ORDERABLE S Final Result Performing Organization Address [facility] Co de Phone Number [facility] [address] [place] [address] * ECG AND WAVEFORMS - TELEMETRY (07/24/2024 7:43 PM EDT) [facility] ECG INTERPRET Sinus Rhythm w/ First Degree AVB [facility] 07/24/2024 7:43 PM EDT Narrative [facility] SERVICES LAB - 07/24/2024 9:03 PM EDT 1ST DEGREE AVB SG PA 0.23 QRS 0.10 RR 0.72 QT 0.33 QTc 0.39 See Clinical Report link for waveform capture us Unknown Provider POINT OF CARE CARDIOLOGY Final Result Performing Organization Address [facility]/ZIP Co de Phone Number [facility] [address] [place] [address] * (ABNORMAL) GLUCOSE METER POC (07/24/2024 5:08 PM EDT) Glucose Meter POC 107(H) 70 - 100 mg/dL 07/24/2024 5:10 PM EDT [facility] Sample Type Capillary 07/24/2024 5:[address] [facility] Patient Status Non-Critical Patient 07/24/2024 5:10 PM EDT [facility] Blood BLOOD SPECIMEN / Unknown 07/24/2024 5:08 PM EDT 07/24/2024 5:10 PM EDT Anil Thompson DO POINT OF CARE TEST ORDERABLE S Final Result Performing Organization Address [facility]/[place] [address] * (ABNORMAL) GLUCOSE METER POC (07/24/2024 12:58 PM EDT) Glucose Meter POC 125(H) 70 - 100 mg/dL 07/24/2024 12:59 PM EDT [facility] Sample Type Capillary 07/24/2024 12:[address] [facility] Patient Status Non-Critical Patient 07/24/2024 12:59 PM EDT [facility] Blood BLOOD SPECIMEN / Unknown 07/24/2024 12:58 PM EDT 07/24/2024 12:59 PM EDT Anil Thompson POINT OF CARE TEST ORDERABLE S Final Result Performing Organization Address [facility] [place] [address] * (ABNORMAL) GLUCOSE METER POC (07/24/2024 8:07 AM EDT) Glucose Meter POC 107(H) 70 - 100 mg/dL 07/24/2024 8:08 AM EDT [facility] Sample Type Capillary 07/24/2024 8:08 AM EDT [facility] Patient Status Non-Critical Patient 07/24/2024 8:08 AM EDT [facility] Blood BLOOD SPECIMEN / Unknown 07/24/2024 8:07 AM EDT 07/24/2024 8:08 AM EDT us Anil Thompson DO POINT OF CARE TEST ORDERABLE S Final Result [facility] [address] [place] [address] * (ABNORMAL) CBC WITH DIFF (07/24/2024 [...] 07/24/2024 7:29 AM EDT [facility] Saunders Percent 5.3 % 07/24/2024 7:29 AM EDT [facility] Eos Percent 6.0 % 07/24/2024 7:29 AM EDT [facility] Baso Percent 0.3 % 07/24/2024 7:29 AM EDT [facility] Neut # 5.9 1.6 - 6.1 x10(3)/[facility] 07/24/2024 7:29 AM EDT [facility] Comment:Neutrophils equals s egs plus bands IMMGRAN# 0.2(H) 0.0 - 0.1 x10(3)/mcL 07/24/2024 7:29 AM EDT [facility] Comment:Automated count of m etamyelocytes, myelocytes and promyelocytes. An absolute IG <0.1 is reported as 0.0. Lymph # 5.0(H) 1.2 - 3.9 x10(3)/[facility] 07/24/2024 7:29 AM EDT [facility] Saunders # 0.7 0.3 - 0.9 x10(3)/[facility] 07/24/2024 7:29 AM EDT [facility] Eos# 0.8(H) 0.0 - 0.5 x10(3)/mcL 07/24/2024 7:29 AM EDT [facility] Baso # 0.0 0.0 - 0.1 x10(3)/[facility] 07/24/2024 7:29 AM EDT [facility] Blood VENOUS BLOOD / Unknown Venipuncture / Unknown 07/24/2024 6:31 AM EDT 07/24/2024 7:16 AM EDT us Anil Thompson DO HEMATOLOGY ORDERABLES Final Result [facility] [address] [facility] , [place] [address] * (ABNORMAL) BASIC METABOLIC PANEL (07/24/2024 6:31 AM EDT) Sodium 140 136 - 145 mmol/L 07/24/2024 7:56 AM EDT [facility] Potassium 4.0 3.5 - 5.0 mmol/L 07/24/2024 7:56 AM EDT [facility] Chloride 110(H) 98 - 107 mmol/L 07/24/2024 7:56 AM EDT [facility] Total CO2 19(L) 22 - 29 mmol/L 07/24/2024 7:56 AM EDT [facility] Anion Gap 11 7 - 16 mmol/L 07/24/2024 7:56 AM EDT [facility] Calcium 8.9 8.8 - 10.4 mg/dL 07/24/2024 7:56 AM EDT [facility] Glucose Lvl 95 70 - 99 mg/dL 07/24/2024 7:56 AM EDT [facility], [facility] BUN 15 8 - 23 mg/dL 07/24/2024 7:56 AM EDT [facility], [facility] Creatinine 1.44(H) 0.67 - 1.30 mg/dL 07/24/2024 7:56 AM EDT [facility] eGFR (CKD-EPIcr 2020) 53(L) >=60 mL/min/1.7 3 m2 07/24/2024 7:56 AM EDT [facility] Comment:Estimated GFR was ca lculated using the CKD-EPIcr (2020) equation refit without race. The equation is recommended by the National Kidney Foundation - [place] [employer] of Nephrology Task Force. Blood VENOUS BLOOD / Unknown Venipuncture / Unknown 07/24/2024 6:31 AM EDT 07/24/2024 7:16 AM EDT us Anil Thompson DO CHEMISTRY ORDERABLES Final R esult [facility] [address] [facility] , [place] [address] * GLUCOSE METER POC (07/24/2024 12:22 AM EDT) Glucose Meter POC 91 70 - 100 mg/dL 07/24/2024 12:24 AM EDT [facility] Sample Type Capillary 07/24/2024 12:24 AM EDT [facility] Patient Status Non-Critical Patient 07/24/2024 12:24 AM EDT [facility] Blood BLOOD SPECIMEN / Unknown 07/24/2024 12:22 AM EDT 07/24/2024 12:24 AM EDT Anil Thompson DO POINT OF CARE TEST ORDERABLE S Final Result Performing Organization Address City/[facility]/ZIP Co de Phone Number [facility] [address] [place] [address] * ECG AND WAVEFORMS - TELEMETRY (07/23/2024 7:05 PM EDT) ECG INTERPRET NSR [facility] 07/23/2024 7:05 PM EDT Narrative [facility] - 07/23/2024 8:21 PM EDT ROUTINE/1stAVB/af PA 0.22 QRS 0.10 RR 0.77 QT 0.45 QTc 0.51 See Clinical Report link for waveform capture us Unknown Provider POINT OF CARE CARDIOLOGY Final Result Performing Organization Address City/[facility]/ZIP Co de Phone Number [facility] [address] [place] [address] * (ABNORMAL) GLUCOSE METER POC (07/23/2024 6:50 PM EDT) Glucose Meter POC 154(H) 70 - 100 mg/dL 07/23/2024 6:52 PM EDT [facility] Sample Type Capillary 07/23/2024 6:52 PM EDT [facility] Patient Status Non-Critical Patient 07/23/2024 6:52 PM EDT [facility] Blood BLOOD SPECIMEN / Unknown 07/23/2024 6:50 PM EDT 07/23/2024 6:52 PM EDT Anil Thompson DO POINT OF CARE TEST ORDERABLE S Final Result Performing Organization Address City/[facility]/ZIP Co de Phone Number [facility] [address] [place] [address] * GLUCOSE METER POC (07/23/2024 2:30 PM EDT) [facility] Signature Glucose Meter POC 99 70 - 100 mg/dL 07/23/2024 2:32 PM EDT [facility] Sample Type Capillary 07/23/2024 2:32 PM EDT [facility] Patient Status Non-Critical Patient 07/23/2024 2:32 PM EDT [facility] Blood BLOOD SPECIMEN / Unknown 07/23/2024 2:30 PM EDT 07/23/2024 2:32 PM EDT Anil Thompson DO POINT OF CARE TEST ORDERABLE S Final Result Performing Organization Address [facility]/ZIP Co de Phone Number [facility] [address] [place] [address] * (ABNORMAL) CBC WITH DIFF (07/23/2024 8:10 [...] 07/23/2024 9:28 AM EDT [facility] RDW 15.6(H) <=14.9 % 07/23/2024 9:28 AM EDT [facility] Platelet 256 155 - 369 x10(3)/mcL 07/23/2024 9:28 AM EDT [facility] MPV 10.0 8.8 - 12.5 fL 07/23/2024 9:28 AM EDT [facility] Neut Percent 57.5 % 07/23/2024 9:28 AM EDT [facility] Comment:Neutrophils equals s egs plus bands Imm Gran% 1.2 % 07/23/2024 9:28 AM EDT [facility] Comment:Automated count of m etamyelocytes, myelocytes and promyelocytes. IG >1% represents a left shift and provides an early indication of an infection or inflammatory process. Lymph Percent 31.8 % 07/23/2024 9:28 AM EDT [facility] Saunders Percent 4.9 % 07/23/2024 9:28 AM EDT [facility] Eos Percent 4.4 % 07/23/2024 9:28 AM EDT [facility] Baso Percent 0.2 % 07/23/2024 9:28 AM EDT [facility] Neut # 9.6(H) 1.6 - 6.1 x10(3)/mcL 07/23/2024 9:28 AM EDT [facility] Comment:Neutrophils equals s egs plus bands IMMGRAN# 0.2(H) 0.0 - 0.1 x10(3)/mcL 07/23/2024 9:28 AM EDT [facility] Comment:Automated count of m etamyelocytes, myelocytes and promyelocytes. An absolute IG <0.1 is reported as 0.0. Lymph # 5.3(H) 1.2 - 3.9 x10(3)/mcL 07/23/2024 9:28 AM EDT [facility] Saunders # 0.8 0.3 - 0.9 x10(3)/mcL 07/23/2024 9:28 AM EDT [facility] Eos# 0.7(H) 0.0 - 0.5 x10(3)/mcL 07/23/2024 9:28 AM EDT [facility] Baso # 0.0 0.0 - 0.1 x10(3)/mcL 07/23/2024 9:28 AM EDT [facility] Blood VENOUS BLOOD / Unknown Venipuncture / Unknown 07/23/2024 8:10 AM EDT 07/23/2024 8:21 AM EDT us Chapo Calvin MD HEMATOLOGY ORDERABLES Final Result [facility] [address] [facility] , [place] [address] * (ABNORMAL) COMPREHENSIVE METABOLIC PANEL (07/23/2024 8:10 [...] gm/dL 07/23/2024 9:14 AM EDT [facility], [facility] Bili Total 0.2 0.2 - 1.4 mg/dL 07/23/2024 9:14 AM EDT [facility] ALT 6 <=41 U/L 07/23/2024 9:14 AM EDT [facility], [facility] AST 10 <=40 U/L 07/23/2024 9:14 AM EDT [facility], [facility] Alk Phos 82 40 - 129 U/L 07/23/2024 9:14 AM EDT [facility], [facility] eGFR (CKD-EPIcr 2020) 45(L) >=60 mL/min/1.7 3 m2 07/23/2024 9:14 AM EDT [facility], [facility] Comment:Estimated GFR was ca lculated using the CKD-EPIcr (2020) equation refit without race. The equation is recommended by the National Kidney Foundation - [place] Society of Nephrology Task Force. Blood VENOUS BLOOD / Unknown Venipuncture / Unknown 07/23/2024 8:10 AM EDT 07/23/2024 8:21 AM EDT us Chapo Calvin MD CHEMISTRY ORDERABLES Final R esult Performing Organization Address City/[facility]/ZIP Co de Phone Number [address] , [place] [address] * BLOOD CULTURE (NO STAIN) (07/23/2024 8:10 AM EDT) Culture Result No Growth at 120 hours. BLOOD CULTURE (NO STAIN) 07/28/2024 9:00 AM EDT [facility], [facility] Blood VENOUS BLOOD / Unknown Venipuncture / Unknown 07/23/2024 8:10 AM EDT 07/23/2024 8:20 AM EDT us Chapo Calvin MD MICROBIOLOGY - GENERAL ORDER ARJUN Final Result Performing Organization Address City/[facility]/ZIP Co de Phone Number [facility], [facility] [address] [facility] , [address] [place] [phone] * BLOOD CULTURE (NO STAIN) (07/23/2024 8:10 AM EDT) Culture Result No Growth at 120 hours. BLOOD CULTURE (NO STAIN) 07/28/2024 9:00 AM EDT [facility] [email or web address] Blood VENOUS BLOOD / Unknown Venipuncture / Unknown 07/23/2024 8:10 AM EDT 07/23/2024 8:20 AM EDT Chapo Calvin MD MICROBIOLOGY - GENERAL ORDER ARJUN Final Result Performing Organization Address [facility]/ZIP Co de Phone Number [facility] [employer] [facility] [address] [facility] , [place] [phone] * (ABNORMAL) C-REACTIVE PROTEIN (07/23/2024 8:10 AM EDT) Pathologist [facility] CRP 94.55(H) <=5.00 mg/L 07/23/2024 12:34 PM EDT [employer] Blood VENOUS BLOOD / Unknown Venipuncture / Unknown 07/23/2024 8:10 AM EDT 07/23/2024 8:21 AM EDT us Chapo Calvin MD CHEMISTRY ORDERABLES Final R esult Performing Organization Address City/[facility]/ZIP Co de Phone Number [facility] [email or web address] [address] [facility] , [place] [address] * (ABNORMAL) SEDIMENTATION RATE AUTOMATED (07/23/2024 8:10 AM EDT) Sed Rate 39(H) 0 - 20 mm/hr 07/23/2024 9:28 AM EDT [employer] Blood VENOUS BLOOD / Unknown Venipuncture / Unknown 07/23/2024 8:10 AM EDT 07/23/2024 8:21 AM EDT us Chapo Calvin MD HEMATOLOGY ORDERABLES Final Result Performing Organization Address City/[facility] Co de Phone Number [facility] [place] [employer] , [place] [address] * (ABNORMAL) CREATINE KINASE (07/23/2024 8:10 AM EDT) [facility] CK 13(L) 39 - 308 U/L 07/23/2024 12:34 PM EDT [facility] [employer] [facility] Blood VENOUS BLOOD / Unknown Venipuncture / Unknown 07/23/2024 8:10 AM EDT 07/23/2024 8:21 AM EDT us Chapo Calvin MD CHEMISTRY ORDERABLES Final R esult Performing Organization Address [facility] Co de Phone Number [facility] [place] [address] , [place] [address] * ECG AND WAVEFORMS - TELEMETRY (07/23/2024 7:30 AM EDT) [facility] ECG INTERPRET NSR [facility] 07/23/2024 7:30 AM EDT Narrative [facility] - 07/23/2024 7:51 AM EDT [place] ROUTINE/1ST DEG PA 0.22 QRS 0.09 RR 0.71 QT 0.35 See Clinical Report link for waveform capture us Unknown Provider POINT OF CARE CARDIOLOGY Final Result Performing Organization Address [facility] Co de Phone Number [facility] [address] [place] [address] * (ABNORMAL) GLUCOSE METER POC (07/23/2024 6:32 AM EDT) [facility] Glucose Meter POC 102(H) 70 - 100 mg/dL 07/23/2024 6:33 AM EDT [facility] Sample Type Capillary 07/23/2024 6:33 AM EDT [facility] Patient Status Non-Critical Patient 07/23/2024 6:33 AM EDT [facility] Blood BLOOD SPECIMEN / Unknown 07/23/2024 6:32 AM EDT 07/23/2024 6:33 AM EDT us Anil Thompson DO POINT OF CARE TEST ORDERABLE S Final Result Performing Organization Address City/[facility]/ZIP Co de Phone Number [facility] [address] [place] [address] * GLUCOSE METER POC (07/23/2024 12:08 AM EDT) Glucose Meter POC 94 70 - 100 mg/dL 07/23/2024 12:12 AM EDT [facility] Sample Type Capillary 07/23/2024 12:12 AM EDT [facility] Patient Status Non-Critical Patient 07/23/2024 12:12 AM EDT [facility] Blood BLOOD SPECIMEN / Unknown 07/23/2024 12:08 AM EDT 07/23/2024 12:12 AM EDT us Anil Thompson DO POINT OF CARE TEST ORDERABLE S Final Result Performing Organization Address [facility]/ZIP Co de Phone Number [facility] [address] [place] [address] * ECG AND WAVEFORMS - TELEMETRY (07/22/2024 7:05 PM EDT) [facility] Signature ECG INTERPRET NSR [facility] 07/22/2024 7:05 PM EDT Narrative [facility] - 07/22/2024 8:02 PM EDT ROUTINE/af PA 0.20 QRS 0.10 RR 0.72 QT 0.43 QTc 0.51 See Clinical Report link for waveform capture us Unknown Provider POINT OF CARE CARDIOLOGY Final Result Performing Organization Address City/[facility]/ZIP Co de Phone Number [facility] [address] [place], [place] [id number] * (ABNORMAL) GLUCOSE METER POC (07/22/2024 5:53 PM EDT) Glucose Meter POC 105(H) 70 - 100 mg/dL 07/22/2024 5:54 PM EDT [facility] Sample Type Capillary 07/22/2024 5:54 PM EDT [facility] Patient Status Non-Critical Patient 07/22/2024 5:54 PM EDT [facility] Blood BLOOD SPECIMEN / Unknown 07/22/2024 5:53 PM EDT 07/22/2024 5:54 PM EDT Anil Thompson POINT OF CARE TEST ORDERABLE S Final Result Performing Organization Address City/[facility]/ZIP Co de Phone Number [facility] [address] [place] [address] * (ABNORMAL) GLUCOSE METER POC (07/22/2024 2:21 PM EDT) Glucose Meter POC 137(H) 70 - 100 mg/dL 07/22/2024 2:22 PM EDT [facility] Sample Type Capillary 07/22/2024 2:[address] [facility] Patient Status Non-Critical Patient 07/22/2024 2:22 PM EDT [facility] Blood BLOOD SPECIMEN / Unknown 07/22/2024 2:21 PM EDT 07/22/2024 2:22 PM EDT us Anil Thompson DO POINT OF CARE TEST ORDERABLE S Final Result Performing Organization Address [facility]/ZIP Co de Phone Number [facility] [address] [place] [address] * (ABNORMAL) C DIFF INTERPRETATION (07/22/2024 12:04 [...] 07/22/2024 12:11 PM EDT Narrative [facility], [facility] - 07/22/2024 1:41 PM EDT Toxin producing C diff target DNA sequences detected. Toxins A/B positive. CDI likely. Consider initiation of severity-based CDI therapy according to CDI management guidance. Anil Thompson DO MICROBIOLOGY - GENERAL ORDER ARJUN Final Result Performing Organization Address City/[facility] Co de Phone Number [facility], [address] , [place] [address] * C DIFF GDH AG AND TOXIN A+B (07/22/2024 12:04 PM EDT) Stool RECTUM STRUCTURE / Unknown 07/22/2024 12:04 PM EDT 07/22/2024 12:11 PM EDT Anil Tohmpson DO MICROBIOLOGY - GENERAL ORDER ARJUN Final Result Performing Organization Address [facility] Co de Phone Number [facility] [email or web address], [address] , [address] [place] [phone] * OVA AND PARASITE BASIC (07/22/2024 12:04 PM EDT) Pathologist [facility] Giardia Lamblia Antigen Not Detected Not detected 07/22/2024 6:39 PM EDT [facility], [facility] Cryptosporidium Exam Not Detected Not Detected 07/22/2024 6:39 PM EDT [facility], [facility] Stool RECTUM STRUCTURE / Unknown 07/22/2024 12:04 PM EDT 07/22/2024 12:11 PM EDT Anil Thompson DO MICROBIOLOGY - GENERAL ORDER ARJUN Final Result Performing Organization Address City/[facility] Co de Phone Number [facility] [email or web address], [address] , [place] [address] * SHIGA TOXIN (07/22/2024 12:04 PM EDT) Shiga Toxin Shiga toxins (produced by E. coli) not detected. Shiga toxins (produced by E. coli) not detected. 07/23/2024 5:08 PM EDT [employer] Stool RECTUM STRUCTURE / Unknown 07/22/2024 12:04 PM EDT 07/22/2024 9:23 PM EDT Anil Thompson DO MICROBIOLOGY - GENERAL ORDER ARJUN Final Result Performing Organization Address City/[facility] Co de Phone Number [employer] [address] [place] [address] , [place] [address] * STOOL CULTURE (NO STAIN) (07/22/2024 12:04 PM EDT) Pathologist [facility] Culture No growth of enteric pathogens, including Salmonella, Shigella, Campylobacter, Vibrio, Yersinia, Aeromonas, Plesiomonas, or E. coli O157. 07/24/2024 7:50 AM EDT [employer] Stool RECTUM STRUCTURE / Unknown 07/22/2024 12:04 PM EDT 07/22/2024 12:11 PM EDT Anil Thompson DO MICROBIOLOGY - GENERAL ORDER ARJUN Final Result Performing Organization Address [facility] Co de Phone Number [facility] [employer] [address] , [place] [address] * C DIFF TOXIN DNA (07/22/2024 12:04 PM EDT) Stool RECTUM STRUCTURE / Unknown 07/22/2024 12:04 PM EDT 07/22/2024 12:11 PM EDT Anil Thompson DO MICROBIOLOGY - GENERAL ORDER ARJUN Final Result Performing Organization Address City/[facility] Co de Phone Number [employer] [address] , [place] [address] * US RENAL AND BLADDER [...] evaluation of the kidneys and bladder with telephone service representative images and net mobile developer notes sent to PACS for radiologist review. [...] sonographic evaluation of the kidneys andbladder with telephone service representative images and net mobile developer notes sent to PACS forradiologist review. FINDINGS: [...] - 100 mg/dL 07/22/2024 10:06 AM EDT [facility] Sample Type Capillary 07/22/2024 10:06 AM EDT [facility] Patient Status Non-Critical Patient 07/22/2024 10:06 AM EDT [facility] Blood BLOOD SPECIMEN / Unknown 07/22/2024 10:05 AM EDT 07/22/2024 10:06 AM EDT Anil Thompson DO POINT OF CARE TEST ORDERABLE S Final Result [facility] [address] [place] [address] * ECG AND WAVEFORMS - TELEMETRY (07/22/2024 7:00 AM EDT) [facility] Signature ECG INTERPRET NSR [facility] 07/22/2024 7:00 AM EDT Narrative [facility] - 07/22/2024 11:03 AM EDT VR, ROUTINE PA 0.20 QRS 0.10 RR 0.79 QT 0.37 QTc 0.41 See Clinical Report link for waveform capture us Unknown Provider POINT OF CARE CARDIOLOGY Final Result [facility] [address] [place] [address] * (ABNORMAL) GLUCOSE METER POC (07/22/2024 6:59 AM EDT) Glucose Meter POC 115(H) 70 - 100 mg/dL 07/22/2024 7:00 AM EDT [facility] Sample Type Capillary 07/22/2024 7:00 AM EDT [facility] Patient Status Non-Critical Patient 07/22/2024 7:00 AM EDT [facility] Blood BLOOD SPECIMEN / Unknown 07/22/2024 6:59 AM EDT 07/22/2024 7:00 AM EDT Anil Thompson DO POINT OF CARE TEST ORDERABLE S Final Result [facility] [address] [place], [place] [id number] * (ABNORMAL) BASIC METABOLIC PANEL (07/22/2024 4:45 [...] recommended by the [employer] - [employer] Task Force. Blood VENOUS BLOOD / Unknown Venipuncture / Unknown 07/22/2024 4:45 AM EDT 07/22/2024 5:07 AM EDT us Anil Thompson DO CHEMISTRY ORDERABLES Final R esult [facility] [employer] [employer] [address] [facility] , [address] [place] [id number] * (ABNORMAL) CBC (07/22/2024 4:45 AM EDT) [...] fL 07/22/2024 6:40 AM EDT [facility] [email or web address] [employer] Blood VENOUS BLOOD / Unknown Venipuncture / Unknown 07/22/2024 4:45 AM EDT 07/22/2024 5:07 AM EDT Nury Mcdermott APRN HEMATOLOGY ORDERABLES Final R esult [facility] [address] , [address] [place] [id number] * VANCOMYCIN LEVEL (07/22/2024 4:45 AM EDT) [facility] Vanco Random 14.6 mcg/mL 07/22/2024 5:44 AM EDT [facility] [email or web address] Blood VENOUS BLOOD / Unknown Venipuncture / Unknown 07/22/2024 4:45 AM EDT 07/22/2024 5:07 AM EDT Cat Jules MD CHEMISTRY ORDERABLES Final Result Performing Organization Address City/[facility]/ZIP Co de Phone Number [facility] [employer] [facility] [address] [facility] , [place] [address] * (ABNORMAL) GLUCOSE METER POC (07/21/2024 11:35 PM EDT) [facility] Glucose Meter POC 102(H) 70 - 100 mg/dL 07/21/2024 11:36 PM EDT [facility] Sample Type Capillary 07/21/2024 11:36 PM EDT [facility] Patient Status Non-Critical Patient 07/21/2024 11:36 PM EDT [facility] Blood BLOOD SPECIMEN / Unknown 07/21/2024 11:35 PM EDT 07/21/2024 11:36 PM EDT Anil Thompson DO POINT OF CARE TEST ORDERABLE S Final Result [facility] [address] [place] [address] * ECG AND WAVEFORMS - TELEMETRY (07/21/2024 10:57 PM EDT) [facility] ECG INTERPRET NSR [facility] 07/21/2024 10:5 7 PM EDT Narrative [facility] - 07/21/2024 10:59 PM EDT ROUTINE/af PA 0.18 QRS 0.09 RR 0.71 QT 0.37 QTc 0.44 See Clinical Report link for waveform capture us Unknown Provider POINT OF CARE CARDIOLOGY Final Result Performing Organization Address City/[facility]/ZIP Co de Phone Number [facility] [address] [place] [address] * URINE CULTURE (NO STAIN) (07/21/2024 6:04 PM EDT) [facility] Culture Multiple bacterial species isolated from urine consistent with urogenital commensal organisms. 07/23/2024 3:11 AM EDT [email or web address] Urine STRUCTURE OF URINARY TRACT PROPER / Unknown 07/21/2024 6:04 PM EDT 07/21/2024 6:17 PM EDT us Cat Jules MD MICROBIOLOGY - GENERAL ORD ERABLES Final Result Performing Organization Address City/[facility]/ZIP Co de Phone Number [email or web address] [address], [place] [address] * EXTRA BE URINE CX (07/21/2024 6:04 PM EDT) Urine STRUCTURE OF URINARY TRACT PROPER / Unknown 07/21/2024 6:04 PM EDT 07/21/2024 6:09 PM EDT us Cat Jules MD MICROBIOLOGY - GENERAL ORD ERABLES Final Result Performing Organization Address City/[facility]/ZIP Co de Phone Number [facility] [address] [place] [address] * (ABNORMAL) URINALYSIS REFLEX (07/21/2024 6:04 PM EDT) UA Color Yellow 07/21/2024 6:17 PM EDT [facility] UA Appear Clear Clear 07/21/2024 6:17 PM [...] 07/21/2024 6:17 PM EDT [facility] UA Urobilinogen Normal <=1 mg/dL [...] ORDERABLES Final Res ult [facility], [address] , [place] [address] * (ABNORMAL) C-REACTIVE PROTEIN (07/21/2024 5:42 PM EDT) Pathologist [facility] CRP 77.53(H) <=5.00 mg/L 07/21/2024 6:35 PM EDT [facility] [email or web address] Blood VENOUS BLOOD / Unknown Venipuncture / Unknown 07/21/2024 5:42 PM EDT 07/21/2024 5:51 PM EDT Cat Jules MD CHEMISTRY ORDERABLES Final Result [facility] [employer] [address] , [place] [address] * (ABNORMAL) PROCALCITONIN (07/21/2024 5:42 PM EDT) [facility] Procalcitonin 0.50(H) <=0.49 ng/mL 07/21/2024 6:35 PM EDT [email or web address] Blood VENOUS BLOOD / Unknown Venipuncture / Unknown 07/21/2024 5:42 PM EDT 07/21/2024 5:51 PM EDT Narrative [facility] [employer] [facility] - 07/21/2024 6:35 PM EDT [...] CHEMISTRY ORDERABLES Final Result Performing Organization Address [facility] Co de Phone Number [facility] [address], [place] [address] * LACTIC ACID (07/21/2024 5:42 PM EDT) Lactic Acid 1.2 0.5 - 1.9 mmol/L 07/21/2024 5:59 PM EDT [facility] Blood VENOUS BLOOD / Unknown Venipuncture / Unknown 07/21/2024 5:42 PM EDT 07/21/2024 5:45 PM EDT Cat Jules MD CHEMISTRY ORDERABLES Final Result Performing Organization Address [facility] de Phone Number [facility] [address] [place] [address] * XR CHEST AP PORTABLE [...] Result [facility] [address] [facility] , [place] [address] * BLOOD CULTURE (NO STAIN) (07/21/2024 4:58 PM EDT) Culture Result No Growth at 120 hours. BLOOD CULTURE (NO STAIN) 07/26/2024 6:00 PM EDT [email or web address] Blood VENOUS BLOOD / Unknown Venipuncture / Unknown 07/21/2024 4:58 PM EDT 07/21/2024 5:02 PM EDT Cat Jules MD MICROBIOLOGY - GENERAL ORD ERABLES Final Result [email or web address] [address] [facility] , [place] [address] * (ABNORMAL) BLOOD CULTURE (NO STAIN) (07/21/2024 4:58 PM EDT) Culture Result Positive Growth(AA) BLOOD CULTURE (NO STAIN) 07/26/2024 11:54 AM EDT [email or web address] Culture Result Growth of Staphylococcus xylosus SUSCEPTIBI LITY RESULT 07/26/2024 11:54 AM EDT [email or web address] Blood VENOUS BLOOD / Unknown Venipuncture / [...] ORD ERABLES Final Result Performing Organization Address [facility]/ZIP Co de Phone Number [facility] [address] , [place] [address] * (ABNORMAL) SEDIMENTATION RATE AUTOMATED (07/21/2024 4:01 PM EDT) [facility] Signature Sed Rate 58(H) 0 - 20 mm/hr 07/21/2024 4:51 PM EDT [employer] Blood VENOUS BLOOD / Unknown Venipuncture / Unknown 07/21/2024 4:01 PM EDT 07/21/2024 4:07 PM EDT Cat Jules MD HEMATOLOGY ORDERABLES Jaimee l Result Performing Organization Address City/[facility]/ZIP Co de Phone Number [facility] [address] , [place] [address] * (ABNORMAL) GLUCOSE METER POC (07/21/2024 4:01 PM EDT) Glucose Meter POC 129(H) 70 - 100 mg/dL 07/21/2024 4:03 PM EDT [facility] Sample Type Venous 07/21/2024 4:03 PM EDT [facility] Patient Status Non-Critica l Patient 07/21/2024 4:03 PM EDT [facility] Blood BLOOD SPECIMEN / Unknown 07/21/2024 4:01 PM EDT 07/21/2024 4:03 PM EDT us Lab Test POINT OF CARE TEST ORDERABLES Fi nal Result [facility] [address] [place] [address] * (ABNORMAL) COMPREHENSIVE METABOLIC PANEL (07/21/2024 4:01 PM EDT) Sodium 136 136 - 145 mmol/L 07/21/2024 4:24 PM EDT [facility] Potassium 4.8 3.5 - 5.0 mmol/L 07/21/2024 4:24 PM EDT [facility] Chloride 103 98 - 107 mmol/L 07/21/2024 4:24 PM EDT [facility] Total CO2 19(L) 22 - 29 mmol/L 07/21/2024 4:24 PM EDT [facility] Anion Gap 14 7 - 16 mmol/L 07/21/2024 4:24 PM EDT [facility] Calcium 8.9 8.8 - 10.4 mg/dL 07/21/2024 4:24 PM EDT [facility] Glucose Lvl 139(H) 70 - 99 mg/dL 07/21/2024 4:24 PM EDT [facility] BUN 32(H) 8 - 23 mg/dL 07/21/2024 4:24 PM EDT [facility] Creatinine 2.08(H) 0.67 - 1.30 mg/dL 07/21/2024 4:24 PM EDT [facility] Albumin 3.5 3.2 - 4.6 gm/dL 07/21/2024 4:24 PM EDT [facility] Total Protein 6.6 6.4 - 8.3 gm/dL 07/21/2024 4:24 PM EDT [facility] Bili Total <0.2(L) 0.2 - 1.4 mg/dL 07/21/2024 4:24 PM EDT [facility] ALT 8 <=41 U/L 07/21/2024 4:24 PM EDT [facility] AST 11 <=40 U/L 07/21/2024 4:24 PM EDT [facility] Alk Phos 96 40 - 129 U/L 07/21/2024 4:24 PM EDT [facility] eGFR (CKD-EPIcr 2020) 34(L) >=60 mL/min/1.7 3 m2 07/21/2024 4:24 PM EDT [facility] Comment:Estimated GFR was ca lculated using the CKD-EPIcr (2020) equation refit without race. The equation is recommended by the [employer] Kid[employer] - [place] [employer]ph[employer] Task Force. Blood VENOUS BLOOD / Unknown Venipuncture / Unknown 07/21/2024 4:01 PM EDT 07/21/2024 4:07 PM EDT us Cat Jules MD CHEMISTRY ORDERABLES Final Result [place] [id number] * (ABNORMAL) CBC WITH DIFF (07/21/2024 4:01 PM EDT) WBC 18.4(H) 3.7 - 10.3 x10(3)/mc L 07/21/2024 5:45 PM EDT [facility] RBC 4.20(L) 4.60 - 6.10 x10(6)/mc L 07/21/2024 5:45 PM EDT [facility] Hgb 11.8(L) 13.7 - 17.5 g/dL 07/21/2024 5:[address] [facility] Hct 37.3(L) 40.0 - 51.0 % 07/21/2024 5:45 PM EDT [facility] MCV 88.8 80.0 - 100.0 fL 07/21/2024 5:45 PM EDT [facility] MCH 28.1 26.0 - 34.0 pg 07/21/2024 5:45 PM EDT [facility] MCHC 31.6 30.7 - 35.5 g/dL 07/21/2024 5:45 PM EDT [facility] RDW 15.3(H) <=14.9 % 07/21/2024 5:45 PM EDT [facility] Platelet 321 155 - 369 x10(3)/mc L 07/21/2024 5:45 PM EDT [facility] MPV 9.7 8.8 - 12.5 fL 07/21/2024 5:45 PM EDT [facility] Segs 38 % 07/21/2024 [...] 5:45 PM EDT [facility] Saunders # 1.5(H) 0.3 - 0.9 x10(3)/mc L [...] Slight 07/21/2024 5:45 PM EDT [email or web address] [employer] [place] [facility] Occasional 07/21/2024 5:45 PM EDT [email or web address] [employer] Blood VENOUS BLOOD / Unknown Venipuncture / Unknown 07/21/2024 4:01 PM EDT 07/21/2024 4:07 PM EDT us Cat Jules MD HEMATOLOGY ORDERABLES Jaimee rodriges Result [email or web address] [employer] [address], [address] [place] [id number] [facility] [address] [place], [place] [phone] documented in this encounter Visit Diagnoses Diagnosis ZAC (acute kidney injury)- Primary Acute kidney failure, unspecified ZAC (acute kidney injury) Acute kidney failure, unspecified Pancolitis (HCC) [place] ulcerative (chronic) colitis Stage 3 chronic kidney [...] Provider: Francoise Uriostegui RN)2355 (Given - Provider: Neinta Hernandez RN) 0448 (Given - Provider: Nenita [...] prior to IVPB or blood product administration. 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
--- OUTSIDE RECORDS SUMMARY | 2024-09-21 10:10 | XMS_ITS | Encounter Summary ---
Author Organization [place] [address] Care Team Providers Care Keller Machine Operator Name Role Phone Viridiana Oropeza MD Primary Care Provider [phone] Pankaj Navarro MD Unavailable [phone] Reason for Visit * Reason Onset Date Comments CM- Telephonic Outreach 07/30/2024 Hospital Follow Up 07/30/2024 Encounter Details Date Type Department Care Team (Late Contact Info) Description 07/30/2024 Patient Outreach SEP Care Managment [address] Appointment Location May Differ [place] [id number] Wen Ayers, RN CM- Telephonic Outreach; Hospital Follow Up Social History Tobacco Use Types Packs/Day Years Used Date Smoking Tobacco: Never Passive Smoke Exposure: Never Smokeless Tobacco: Never Alcohol Use Standard Drinks/Week Comments No 0 (1 standard drink = 0.6 oz pur e alcohol) [facility] Utilities Answer Date Recorded In the past 12 months has [employer], gas, oil, or water [employer] threatened to shut off services in your home? No 07/22/2024 Overall Financial Resource Strain (CARDIA) Answe r Date Recorded How hard is it for you to pa y for the very basics like food, housing, medical care, and heating? Not hard at all 07/22/2024 PHQ-2 Answer Date Recorded PHQ-2 Total Score 0 07/22/2024 [facility] of Occupat ional Health - Occupational Stress [...] needed for daily living? No 01/21/2020 [facility] IP Transportation Answer D ate Recorded [...] Patient can return call to Wen Ayers [phone] documented in this encounter Plan of Treatment [...] documented as of this encounter Care Teams Keller Machine Operator Relationship Specialty Start Date End Date Viridiana Oropeza MD [address] [place] [address] PCP - General 01/19/09 09/14/24 Pankaj Navarro MD [address] [place] [address] Physician Otolaryngology 09/18/23 documented as of this encounter
--- OUTSIDE RECORDS SUMMARY | 2024-09-21 10:10 | XMS_ITS | Encounter Summary ---
Author Organization [place] [address] Care Team Providers Care Automobile Sales Consultant Name Role Phone Viridiana Oropeza MD Primary Care Provider [phone] Pankaj Navarro MD Unavailable [phone] Reason for Visit * Reason Onset Date Comments Hospital Follow Up 07/28/2024 Encounter Details Date Type Department Care Team (Late st Contact Info) Description 07/28/2024 Patient Outreach SEP Care Managment [facility] [address] Appointment Location May Differ [place] [phone] Lexis Kahn RN Hospital Follow Up Social History Tobacco Use Types Packs/Day Years Used Date Smoking Tobacco: Never Passive Smoke Exposure: Never Smokeless Tobacco: Never Alcohol Use Standard Drinks/Week Comments No 0 (1 standard drink = 0.6 oz pur e alcohol) [facility] Utilities Answer Date Recorded In the past 12 months has [employer], gas, oil, or water company threatened to shut off services in your home? No 07/22/2024 Overall Financial Resource Strain (CARDIA) Answe r Date Recorded How hard is it for you to pa y for the very basics like food, housing, medical care, and heating? Not hard at all 07/22/2024 PHQ-2 Answer Date Recorded PHQ-2 Total Score 0 07/22/2024 [facility] of Occupat ional Health - Occupational Stress [...] things needed for daily living? No 01/21/2020 [facility] IP Transportation Answer D ate [...] can return call to Lexis Kahn RN Ecologist Technician Care Management Team [facility] [phone] documented in this encounter Plan of Treatment [...] as of this encounter Care Teams Automobile Sales Consultant Relationship Specialty Start Date End Date Viridiana Oropeza MD [address] [place] [address] PCP - General 01/19/09 09/14/24 Pankaj Navarro MD [address] [place] [address] [address] [place] [address] Physician Otolaryngology 09/18/23 documented as of this encounter
--- OUTSIDE RECORDS SUMMARY | 2024-09-21 10:11 | XMS_ITS | Clinical Summary ---
Author Organization [facility] Address [address] [place] [address] Care Team Providers Care Aging Box Hand Name Role Phone Pcp, No Primary Care [...] therelease of HIV test results or diagnoses. [id number] Allergies Active Allergy Reactions Criticality Noted [...] Height 172.7 cm (5' 8 ) 09/28/2021 2:34 PM EDT Body Mass Index 53.46 09/28/2021 [...] series) 08/23/2031 Immunization: Pneumococcal Completed 02/21/2022, Insurance [facility] MEDICARE B Care Teams Aging Box Hand Relationship Specialty Start Date End Date Pcp, No No Address PCP - General 08/25/21
--- OUTSIDE RECORDS SUMMARY | 2024-09-21 10:11 | XMS_ITS | Encounter Summary ---
Author Organization [place] [address] Care Team Providers Care Artificial Breeding Ranch Supervisor Name Role Phone Pankaj Navarro MD Unavailable [phone] Reason for Visit * Reason Onset Date Comments Central Patient Navigator Outreach 09/15/2024 AWV Questionnaire Encounter Details Date Type Department Care Team (Late st Contact Info) Description 09/15/2024 Patient Outreach SEP [facility] [address] [place], [place] [id number] Viridiana Oropeza MD [address] [place], [place] [id number] Central Patient Navigator Outreach (AWV Questionnaire) Social History Tobacco Use Types Packs/Day Years Used Date Smoking Tobacco: Never Passive Smoke Exposure: Never Smokeless Tobacco: Never Alcohol Use Standard Drinks/Week Comments No 0 (1 standard drink = 0.6 oz pur e alcohol) [facility] Utilities Answer Date Recorded In the past 12 months has [employer], gas, oil, or water [employer] threatened to shut off services in your home? No 07/22/2024 Overall Financial Resource Strain (CARDIA) Answe r Date Recorded How hard is it for you to pa y for the very basics like food, housing, medical care, and heating? Not hard at all 07/22/2024 PHQ-2 Answer Date Recorded PHQ-2 Total Score 0 07/22/2024 [facility] [place] of Occupat ional Health - Occupational Stress [...] things needed for daily living? No 01/21/2020 [facility] IP Transportation Answer D ate [...] Questionnaires Attempt Count: 1st Care Gaps Addressed precision honing machine operator: Medicare Questionnaire Outcome:pt states does not see [facility] provider for primary care needs--now goes to [facility]--advised to contact ins and removed Dr. Oropeza as primary care provider Call back number: [phone] documented in this encounter Plan of Treatment [...] documented as of this encounter Care Teams Artificial Breeding Ranch Supervisor Relationship Specialty Start Date End Date Pankaj Navarro MD [address] [place], [place] [id number] Physician Otolaryngology 09/18/23 documented as of this encounter
--- OUTSIDE RECORDS SUMMARY | 2024-09-21 10:11 | XMS_ITS | Encounter Summary ---
Author Organization [place] [address] Care Team Providers Care Thermometer Maker Name Role Phone Viridiana Oropeza MD Primary Care Provider [phone] Pankaj Navarro MD Unavailable [phone] Encounter Details Date Type Department Care Team (Late st Contact Info) Description 06/23/2024 Results Follow-Up [facility] [address] [place] [address] Lucia Dunlap PA-C [address] [place] [address] COMPLIANCE OPIOID PANEL QUANT ONLY, URINE Social History Tobacco Use Types Packs/Day Years Used Date Smoking Tobacco: Never Passive Smoke Exposure: Never Smokeless Tobacco: Never Alcohol Use Standard Drinks/Week Comments No 0 (1 standard drink = 0.6 oz pur e alcohol) [facility] Utilities Answer Date Recorded In the past 12 months has [employer], gas, oil, or water [employer] threatened to shut off services in your home? No 07/22/2024 Overall Financial Resource Strain (CARDIA) Answe r Date Recorded How hard is it for you to pa y for the very basics like food, housing, medical care, and heating? Not hard at all 07/22/2024 PHQ-2 Answer Date Recorded PHQ-2 Total Score 0 07/22/2024 [facility] [place] of Occupat ional Health - Occupational Stress [...] for daily living? No 01/21/2020 [facility] IP Transportation Answer D ate Recorded [...] 07/21/2024 4:08 PM Genesis Carey RN * [place] Suicide Severity Rating Scale (Q shift for [...] documented as of this encounter Care Teams Thermometer Maker Relationship Specialty Start Date End Date Viridiana Oropeza MD [address] [place] [address] PCP - General 01/19/09 09/14/24 Pankaj Naavrro MD [address] [place] [address] Physician Otolaryngology 09/18/23 documented as of this encounter
--- OUTSIDE RECORDS SUMMARY | 2024-09-21 10:11 | XMS_ITS | Encounter Summary ---
Author Organization [facility] Address [address] [place] [id number] Care Team Providers Care Dumper Mold Cleaner Name Role Phone Viridiana Oropeza MD Primary Care Provider [phone] Gerardo Mcbride Unavailable [phone] Reason for Referral * Consultation (Routine) - Closed Specialty Diagnoses / Procedures Referred By Contac t Referred To Contact Orthopaedic Surgery Diagnoses Pain in right hip Pain in left hip Cristobal Rosales PA [address] [place] [address] Phone: tel: fax: Alejandro Rojas MD [address] [facility] [address] [place] [address] Phone: tel: fax: Referral ID Status Reason Start Date Expiration Date V isits Requested Visits Authorized [id number] Closed Specialty Services Required 03/08/2022 09/07/2023 1 1 Encounter Details Date Type Department Care Team (Late st Contact Info) Description 03/08/2022 Community Orders Community Practice [address] [place] [address] Cristobal Rosales PA [address] [place] [address] Pain in right hip (Primary [...] documented as of this encounter Care Teams Dumper Mold Cleaner Relationship Specialty Start Date End Date Viridiana Oropeza MD [address] [place] [address] PCP - General 03/13/22 Gerardo Mcbride [address] [place] [address] 08/23/23 documented as of this encounter
--- OUTSIDE RECORDS SUMMARY | 2024-09-21 10:11 | XMS_ITS | Clinical Summary ---
Author Organization [facility] Address [address] [place] [address] Care Team Providers Care Meteorological Aide Name Role Phone Viridiana Oropeza MD Primary Care Provider [phone] MarcellusaddisonkileyGerardo pink Unavailable [phone] Allergies Active Allergy Reactions Criticality Noted [...] Type Department Care Team Description 08/05/[address] [address] Roxana Wagoner 07/20/2024 10:30 AM EDT Office Visit [address] [address] Wilfredo Forte MD Infection of prosthetic joint, subsequent encounter (Primary Dx) 07/20/2024 Results Follow-Up [address] [address] Wilfredo Forte MD abnormal labs [...] [facility] [address] [facility], [address] [place] [address] Alejandro Rojas MD HCN - Patient Message from Last 3 [...] answer 05/04/2024 How often do you attend [facility] or mosque services? Patient unable to answer 05/04/2024 Do you belong to any clubs o r organizations such as hoahaoism groups, unions, fraternal or athletic groups, or [...] Recorded Patient Health Questionnaire-2 Score 0 06/15/2024 [facility] Questionnaire Answer Date Recorded [...] any time in the past 12 m [facility], were you homeless or living in a alf (including now)? No 05/04/2024 Utilities Answer Date Recorded In the past 12 months has th e [employer], gas, oil, or water [facility] threatened to shut off services in your [...] - Risk 60-74 years 1-dose series) 2016 [id number] Vaccine ( season) 2023 03/27/2023, 08/17/2021, 12/20/2020, Additional history [...] Wagoner PA Medical Devices Implanted Type Area Assistant Portfolio Manager Device Identifier Shelf Expiration Date Model / Serial / Lot Cement Palacos W/Gent - Sn/A - [id number] Implanted:Qty : 1 on 05/02/2024 by Denis Stevenson MD at [facility] Cement Right: Hip [employer]-[id number] 05/12/2027 [id number] / N/A / [id number] Implant Implant Biljosea l: Hip Liner Ref Xlpe 36 20 Deg 54-56 F - [id number] Implanted:Qty : 1 on 03/26/2024 by Alejandro Rojas MD at [facility] Right: Hip [employer]-[id number] 07/27/2029 [id number] / / [id number] Hip Head Oxi Fm Tpr 36 +8 - [id number] Implanted:Qty : 1 on 03/26/2024 by Alejandro Rojas MD at [facility] Right: Hip [employer]-[id number] 07/01/2032 [id number] / / [id number] Chg Stem Redapt [place] 300mm So Sz21 - [id number] Implanted:Qty : 1 on 05/07/2024 by Alejandro Rojas MD at [facility] Right: Hip [employer]-[id number] 09/06/2031 [id number] / / [id number] Chg Head Oxinium Fem 01/24 28m - [id number] Implanted:Qty : 1 on 05/07/2024 by Alejandro Rojas MD at [facility] Right: Hip [employer]-[id number] 10/27/2033 [id number] / / [id number] Shell Modular Redapt 62mm - [id number] Implanted:Qty : 1 on 05/07/2024 by Alejandro Rojas MD at [facility] Right: Hip [employer]-[id number] 10/21/2032 [id number] / / [id number] Chg Screw Ref Spher Head 25mm - [id number] Implanted:Qty : 1 on 05/07/2024 by Alejandro Rojas MD at [facility] Right: Hip [employer]-[id number] 11/04/2033 [id number] / / [id number] Liner Or3o Dual Mbility 48 62 - [id number] Implanted:Qty : 1 on 05/07/2024 by Alejandro Rojas MD at [facility] Right: Hip [employer]-[id number] 06/24/2032 [id number] / / [id number] Chg Screw Ref Spher Head 25mm - [id number] Implanted:Qty : 1 on 05/07/2024 by Alejandro Rojas MD at [facility] Right: Hip [employer]-[id number] 11/02/2033 [id number] / / [id number] Chg Screw Redapt Lock 15mm - [id number] Implanted:Qty : 1 on 05/07/2024 by Alejandro Rojas MD at [facility] Right: Hip [employer]-[id number] 09/23/2033 [id number] / / [id number] Liner Or3o Dual Mbility Xlpe 28 48 - [id number] Implanted:Qty : 1 on 05/07/2024 by Alejandro Rojas MD at [facility] Right: Hip [employer]-[id number] 01/09/2030 [id number] / / [id number] Procedures Procedure Name Priority Date/Time Associated Diagnosis Comments CBC WITH AUTO DIFFERENTIAL Routine 07/20/2024 10:40 AM EDT Infection of prosthetic joint, subsequent encounter COMPREHENSIVE METABOLIC PANEL, PLASMA Routine 07/20/2024 10:40 AM EDT Infection of prosthetic joint, subsequent encounter C-REACTIVE PROTEIN, PLASMA Routine 07/20/2024 10:40 AM EDT Infection of prosthetic joint, subsequent encounter HEMOGLOBIN A1C STAT Add-on 05/02/2024 2:46 AM EDT from Last 3 Months or Most Recently Relevant to Health Maintenance Results * (ABNORMAL) CBC and Differential (07/20/2024 10:40 AM EDT) [facility] WBC Count 20.96(H) 3.70 - 10.30 10*3/uL LAB HEMATOLOGY METHOD 07/20/2024 2:54 PM EDT [facility] RBC Count 4.16(L) 4.60 - 6.10 10*6/uL LAB HEMATOLOGY METHOD 07/20/2024 2:54 PM EDT [facility] HGB 11.5(L) 13.7 - 17.5 g/dL LAB HEMATOLOGY METHOD 07/20/2024 2:54 PM EDT [facility] HCT 37.3(L) 40.0 - 51.0 % LAB HEMATOLOGY METHOD 07/20/2024 2:54 PM EDT [facility] Platelet Count 316 155 - 369 10*3/uL LAB HEMATOLOGY METHOD 07/20/2024 2:54 PM EDT [facility] MCV 90 79 - 98 fL LAB HEMATOLOGY METHOD 07/20/2024 2:54 PM EDT [facility] MCH 27.6 26.0 - 32.0 pg LAB HEMATOLOGY METHOD 07/20/2024 2:54 PM EDT [facility] MCHC 30.8 30.7 - 35.5 g/dL LAB HEMATOLOGY METHOD 07/20/2024 2:54 PM EDT [facility] RDW 15.5(H) 11.5 - 14.5 % LAB HEMATOLOGY METHOD 07/20/2024 2:54 PM EDT [facility] MPV 9.7 8.8 - 12.5 fL LAB HEMATOLOGY METHOD 07/20/2024 2:54 PM EDT [facility] nRBC 0.0 <=0.0 per 100 WBCs LAB HEMATOLOGY METHOD 07/20/2024 2:54 PM EDT [facility] Differential Type Automated LAB HEMATOLOGY METHOD 07/20/2024 2:54 PM EDT [facility] Neutrophils % 49 % LAB HEMATOLOGY METHOD 07/20/2024 2:54 PM EDT [facility] Lymphocytes % 37 % LAB HEMATOLOGY METHOD 07/20/2024 2:54 PM EDT [facility] Monocytes % 7 % LAB HEMATOLOGY METHOD 07/20/2024 2:54 PM EDT [facility] Eosinophils % 3 % LAB HEMATOLOGY METHOD 07/20/2024 2:54 PM EDT [facility] Basophils % 0 % LAB HEMATOLOGY METHOD 07/20/2024 2:54 PM EDT [facility] Immature Granulocytes % 4 % LAB HEMATOLOGY METHOD 07/20/2024 2:54 PM EDT [facility] Neutrophils Absolute 10.36(H) 1.60 - 6.10 10*3/uL LAB HEMATOLOGY METHOD 07/20/2024 2:54 PM EDT [facility] Lymphocytes Absolute 7.66(H) 1.20 - 3.90 10*3/uL LAB HEMATOLOGY METHOD 07/20/2024 2:54 PM EDT [facility] Monocytes Absolute 1.51(H) 0.30 - 0.90 10*3/uL LAB HEMATOLOGY METHOD 07/20/2024 2:54 PM EDT [facility] Eosinophils Absolute 0.61(H) 0.00 - 0.50 10*3/uL LAB HEMATOLOGY METHOD 07/20/2024 2:54 PM EDT [facility] Basophils Absolute 0.07 0.00 - 0.10 10*3/uL LAB HEMATOLOGY METHOD 07/20/2024 2:54 PM EDT [facility] Immature Granulocytes Absolute 0.75(H) 0.00 - 0.06 10*3/uL LAB HEMATOLOGY METHOD 07/20/2024 2:54 PM EDT [facility] Blood Venous blood specimen / Unknown Venipuncture / Unknown 07/20/2024 10:40 AM EDT 07/20/2024 10:40 AM EDT Narrative [facility] - 07/20/2024 2:54 PM EDT Therapeutic decision making should be based on absolute values, rather than percentages. us Wilfredo Forte MD LAB BLOOD ORDERABLES Final Re sult [facility] [address] [place] [address] * (ABNORMAL) C-reactive protein (07/20/2024 10:40 AM EDT) CRP, Plasma 96.8(H) <=8.0 mg/L 07/20/2024 12:33 PM EDT [facility] Blood Venous blood specimen / Unknown Venipuncture / Unknown 07/20/2024 10:40 AM EDT 07/20/2024 10:40 AM EDT Narrative [facility] - 07/20/2024 12:33 PM EDT This CRP test is appropriate for assessment of infection, systemic inflammation and/or tissue injury. To assess cardiovascular disease risk order high sensitivity CRP (CRPH). us Wilfredo Forte MD LAB BLOOD ORDERABLES Final Re sult [facility] [address] [place] [address] * (ABNORMAL) Comprehensive Metabolic Panel, Plasma (07/20/2024 10:40 AM EDT) Glucose, Plasma 129(H) 74 - 99 mg/dL 07/20/2024 12:33 PM EDT [facility] BUN, Plasma 33(H) 8 - 23 mg/dL 07/20/2024 12:33 PM EDT [facility] Creatinine, Plasma 2.15(H) 0.70 - 1.20 mg/dL 07/20/2024 12:33 PM EDT [facility] BUN/Creatinine Ratio 15 07/20/2024 12:33 PM EDT [facility] Sodium, Plasma 137 136 - 145 mmol/L 07/20/2024 12:33 PM EDT [facility] Potassium, Plasma 4.4 3.6 - 4.9 mmol/L 07/20/2024 12:33 PM EDT [facility] Chloride, Plasma 104 97 - 107 mmol/L 07/20/2024 12:33 PM EDT [facility] CO2, Plasma 19(L) 22 - 29 mmol/L 07/20/2024 12:33 PM EDT [facility] Anion Gap 14 6 - 16 mmol/L 07/20/2024 12:33 PM EDT [facility] Total Calcium, Plasma 9.3 8.9 - 10.2 mg/dL 07/20/2024 12:33 PM EDT [facility] Total Protein 6.6 6.3 - 7.9 g/dL 07/20/2024 12:33 PM EDT [facility] Albumin, Plasma 3.5 3.5 - 5.2 g/dL 07/20/2024 12:33 PM EDT [facility] AST, Plasma 13 10 - 50 U/L 07/20/2024 12:33 PM EDT [facility] ALT, Plasma 13 10 - 50 U/L 07/20/2024 12:33 PM EDT [facility] Alkaline Phosphatase, Plasma 96 40 - 115 U/L 07/20/2024 12:33 PM EDT [facility] Total Bilirubin, Plasma <0.2(L) 0.2 - 1.1 mg/dL 07/20/2024 12:33 PM EDT [facility] eGFRcr 32.9 mL/min/1.7 3m*2 07/20/2024 12:33 PM EDT [facility] Comment:Reported eGFRcr in m L/min/1.73m2 is based the CKD-EPI 2020 equation that does not use a race coefficient. Blood Venous blood specimen / Unknown Venipuncture / Unknown 07/20/2024 10:40 AM EDT 07/20/2024 10:40 AM EDT us Wilfredo Forte MD LAB BLOOD ORDERABLES Final Re sult [facility] [address] [place] [address] * (ABNORMAL) Hemoglobin A1c (05/02/2024 2:46 AM EDT) Hemoglobin A1c 5.8(H) <5.7 % 05/02/2024 8:35 AM EDT [facility] Blood Venous blood specimen / Unknown Venipuncture / Unknown 05/02/2024 2:46 AM EDT 05/02/2024 2:58 AM EDT Narrative [facility] - 05/02/2024 8:35 AM EDT HA1C Interpretive Data: Diagnosis of Diabetes: Diabetic > or = 6.5% Pre-diabetic 5.7 to 6.4% Non-diabetic < or = 5.6% Glycemic Targets for Type I and Type II Diabetics: Non- Adults <7.0% Adults <6.0% Children and Adolescents <7.5% Source: [place] [employer]. Standards of medical care in diabetes,2017. Diabetes Care.2017:40 (suppl 1):S1-S135. HbA1c assay performed by an ion-exchange chromatography method that is certified traceable to the DCCT. us Regan Frank MD LAB BLOOD ORDERABLES Final Resul t [facility] [address] [place] [address] from Last 3 Months or Most Recently Relevant to Health Maintenance Additional Health Concerns Active Problems Noted Date Diagnosed Date Autogenerated Problem 07/17/2024 Autogenerated Problem 06/05/2024 Insurance [facility] [place] [address] Advance Directives * Full Code (Latest Code Status on File) Date Activated Date Inactivated Comments 05/02/2024 3:18 PM 05/13/2024 6:35 PM * Full Code Date Activated Date Inactivated Comments 05/02/2024 5:18 AM 05/02/2024 3:18 PM * Full Code Date Activated Date Inactivated Comments 03/26/2024 12:27 PM 04/01/2024 9:30 PM Question Answer Comments Patient has decision-making capacity? Yes Care Teams Meteorological Aide Relationship Specialty Start Date End Date Viridiana Oropeza MD [address] [place] [address] PCP - General 03/13/22 Gerardo Mcbride [address] [place] [address] 08/23/23
--- OUTSIDE RECORDS SUMMARY | 2024-09-21 10:11 | XMS_ITS | Encounter Summary ---
Author Organization [place] [address] Care Team Providers Care Animal Eviscerator Name Role Phone Viridiana Oropeza MD Primary Care Provider [phone] Pankaj Navarro MD Unavailable [phone] Reason for Visit * Reason Onset Date Comments Refill 08/07/2024 Oxycodone - refi ll Encounter Details Date Type Department Care Team (Late Contact Info) Description 08/07/2024 Telephone [facility] [address] [place] [address] Viridiana Oropeza MD [address] [place] [address] Refill (Oxycodone - refill ) Social History Tobacco Use Types Packs/Day Years Used Date Smoking Tobacco: Never Passive Smoke Exposure: Never Smokeless Tobacco: Never Alcohol Use Standard Drinks/Week Comments No 0 (1 standard drink = 0.6 oz pur e alcohol) [facility] Utilities Answer Date Recorded In the past 12 months has [employer], gas, oil, or water [employer] threatened to shut off services in your home? No 07/22/2024 Overall Financial Resource Strain (CARDIA) Answe r Date Recorded How hard is it for you to pa y for the very basics like food, housing, medical care, and heating? Not hard at all 07/22/2024 PHQ-2 Answer Date Recorded PHQ-2 Total Score 0 07/22/2024 [facility] [place] of Occupat ional Health - Occupational Stress [...] things needed for daily living? No 01/21/2020 [facility] IP Transportation Answer D ate [...] Sawyer LPN - 08/07/2024 8:40 AM EDT Pharmacy:[id number] - [place] [address] [address] [phone] Controlled Contract Updated / Signed 08/17/2022- [facility] Informed Consent Updated / Signed 08/17/2022 UDS [...] w/ prescribing provider: 09/16/24 Pharmacy & Location: [facility] [address] [place] [address] [address] - Return Method of Communication: N/A Additional Information: N/A documented in this encounter Plan of Treatment Not on file documented as of this encounter Goals Goal Patient Goal Type Associated Problems Recent Progress Patient-Stated? Author Blood Pressure < 140/90 Blood Pressure 128/56(2024 9:08 AM EDT) No Julia Chicas, DAVDI BMI (Calculated) < 30 General 41.9(07/22/19 9:49 [...] documented as of this encounter Care Teams Animal Eviscerator Relationship Specialty Start Date End Date Viridiana Oropeza MD [address] [place] [address] PCP - General 01/19/09 09/14/24 Pankaj Navarro MD [address] [place], [place] [id number] Physician Otolaryngology 09/18/23 documented as of this encounter
--- OUTSIDE RECORDS SUMMARY | 2024-09-21 10:11 | XMS_ITS | Encounter Summary ---
Author Organization [place] [address] Care Team Providers Care Supervisor Backfilling Name Role Phone Viridiana Oropeza MD Primary Care Provider [phone] Pankaj Navarro MD Unavailable [phone] Reason for Visit * Reason Onset Date Comments Refill 07/07/2024 Percocet refill request Encounter Details Date Type Department Care Team (Late st Contact Info) Description 07/07/2024 Telephone [facility] [address] [place] [address] Viridiana Oropeza MD [address] [place] [address] Refill (Percocet refill request) Social History Tobacco Use Types Packs/Day Years Used Date Smoking Tobacco: Never Passive Smoke Exposure: Never Smokeless Tobacco: Never Alcohol Use Standard Drinks/Week Comments No 0 (1 standard drink = 0.6 oz pur e alcohol) [facility] Utilities Answer Date Recorded In the past 12 months has [employer], gas, oil, or water [employer] threatened to shut off services in your home? No 07/22/2024 Overall Financial Resource Strain (CARDIA) Answe r Date Recorded How hard is it for you to pa y for the very basics like food, housing, medical care, and heating? Not hard at all 07/22/2024 PHQ-2 Answer Date Recorded PHQ-2 Total Score 0 07/22/2024 [facility] [place] of Occupat ional [facility] - Occupational Stress Questionnaire Answer Date [...] things needed for daily living? No 01/21/[address] [facility] IP Transportation Answer D ate Recorded [...] 07/21/2024 4:08 PM Genesis Carey RN * [place] Suicide Severity Rating Scale (Q shift for [...] Richey RMA - 07/07/2024 9:54 AM EDT Pharmacy:[id number] - [place] [address] [phone] [facility] [phone] Controlled Contract Updated / Signed 08/17/2022- [facility] Informed Consent Updated / Signed 08/17/2022 UDS [...] w/ prescribing provider: 09/16/24 Pharmacy & Location: [facility] [address] [place] [address] [address] Return Method of Communication: N/A [...] documented as of this encounter Care Teams Supervisor Backfilling Relationship Specialty Start Date End Date Viridiana Oropeza MD [address] [place] [address] PCP - General 01/19/09 09/14/24 Pankaj Navarro MD [address] [place] [address] Physician Otolaryngology 09/18/23 documented as of this encounter
--- OUTSIDE RECORDS SUMMARY | 2024-09-21 10:11 | XMS_ITS | Encounter Summary ---
Author Organization Healthcare Address [address] [place] [address] Care Team Providers Care Translator/Interpreter Name Role Phone Viridiana Oropeza MD Primary Care Provider [phone] Gerardo Mcbride Unavailable [phone] Encounter Details Date Type Department Care Team (Late st Contact Info) Description 08/05/2024 Telephone [facility] [address] [place] [address] Roxana Wagoner Social History Tobacco [...] How often do you attend chur or mu-ism services? Patient unable to answer 05/04/2024 Do you belong to any clubs o r organizations such as uatsdin groups, unions, fraternal or athletic groups, or [...] Recorded Patient Health Questionnaire-2 Score 0 06/[facility]/20[facility] - Occupational Stress Questionnaire Answer Date [...] any time in the past 12 m [facility], were you homeless or living [...] 3:10 PM EDT Wilfredo Forte MD P [facility] Clinical Certified Technician Specialist I saw Mr. Chauhan two weeks ago. His labwork showed elevated CRP, WBC 21 and newly elevated creatinine consistent with renal failure. I contacted him and advised him to go to the ED for evaluation. He was going to do that at [facility] but I dont see that he did that. Can someone follow up with him and see if he went somehwere for evaluation. Updated Care Everywhere and notified the provider the patient was seen in the ED at [facility] and admitted. Updated records and results crossed over to [facility]. * Telephone Encounter - Roxana Wagoner - [...] documented as of this encounter Care Teams Translator/Interpreter Relationship Specialty Start Date End Date Viridiana Oropeza MD [address] [place] [address] PCP - General 03/13/22 Gerardo Mcbride [address] [place] [address] 08/23/23 documented as of this encounter
--- OUTSIDE RECORDS SUMMARY | 2024-09-21 10:11 | XMS_ITS | Encounter Summary ---
Author Organization [place] Address [facility] [place] [address] Care Team Providers Care Auto Body Repairer Name Role Phone Viridiana Oropeza MD Primary Care Provider [phone] Pankaj Navarro MD Unavailable [phone] Encounter Details Date Type Department Care Team (Late st Contact Info) Description 06/02/2024 Lab Requisition 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 No 01/21/2020 [facility] IP Transportation Answer D ate [...] of Assessment Author Yes 03/23/2024 10:00 AM Tiffnay Mccullough CCMA * Does this person have [...] ORDERABLES Final Re sult Performing Organization Address [facility]/[place] [address] * CREATININE (06/02/2024 10:00 AM EDT) Creatinine 1.13 0.67 - 1.30 mg/dL 06/02/2024 6:27 PM EDT [facility] [employer] eGFR (CKD-EPIcr 2020) 71 >=60 mL/min/1.7 3 m2 06/02/2024 6:27 PM EDT [employer] Comment:Estimated GFR was ca lculated using the CKD-EPIcr (2020) equation refit without race. The equation is recommended by the National Kidney Foundation - [place] [employer] of Nephrology Task Force. Blood VENOUS BLOOD / Unknown 06/02/2024 10:00 AM EDT 06/02/2024 2:43 PM EDT us Wilfredo Forte MD CHEMISTRY ORDERABLES Final Re sult Performing Organization Address City/[facility]/ZIP Co de Phone Number [employer] [address], [address] [place] [id number] * (ABNORMAL) C-REACTIVE PROTEIN (06/02/2024 10:00 AM EDT) CRP 26.44(H) <=5.00 mg/L 06/02/2024 6:27 PM EDT [employer] [employer] Blood VENOUS BLOOD / Unknown 06/02/2024 10:00 AM EDT 06/02/2024 2:43 PM EDT Wilfredo Forte MD CHEMISTRY ORDERABLES Final Re sult Performing Organization Address City/[facility]/ZIP Co de Phone Number [facility] [address] [facility] , [place] [address] * (ABNORMAL) HEPATIC FUNCTION PANEL [...] ORDERABLES Final Re yoan Performing Organization Address City/[facility]/ZIP Co de Phone Number [facility] [address] [facility] , [place] [address] * (ABNORMAL) CBC WITH DIFF [...] 06/02/2024 3:23 PM EDT [facility] MCV 97.1 80.0 - 100.0 fL 06/02/2024 3:23 PM EDT [facility] MCH 29.3 26.0 - 34.0 pg 06/02/2024 3:23 PM EDT [facility] MCHC 30.2(L) 30.7 - 35.5 g/dL 06/02/2024 3:23 PM EDT [facility] RDW 15.6(H) <=14.9 % 06/02/2024 3:23 PM EDT [facility] Platelet 248 155 - 369 x10(3)/mcL 06/02/2024 3:23 PM EDT [facility] MPV 10.3 8.8 - 12.5 fL 06/02/2024 3:23 PM EDT [facility] Neut Percent 39.4 % 06/02/2024 3:23 PM EDT [facility] Comment:Neutrophils equals s egs plus bands Imm Gran% 0.2 % 06/02/2024 3:23 PM EDT [facility] Comment:Automated count of m etamyelocytes, myelocytes and promyelocytes. Lymph Percent 40.8 % 06/02/2024 3:23 PM EDT [facility] Barron Percent 9.8 % 06/02/2024 3:23 PM EDT [...] 06/02/2024 3:23 PM EDT [facility] Comment:Automated count of m etamyelocytes, myelocytes and promyelocytes. An absolute IG <0.1 is reported as 0.0. Lymph # 3.3 1.2 - 3.9 x10(3)/mcL 06/02/2024 3:23 PM EDT [facility] Barron # 0.8 0.3 - 0.9 x10(3)/mcL 06/02/2024 3:23 PM EDT [facility] Eos# 0.8(H) 0.0 - 0.5 x10(3)/mcL 06/02/2024 3:23 PM EDT [facility] Baso # 0.0 0.0 - 0.1 x10(3)/mcL 06/02/2024 3:23 PM EDT [facility] Blood VENOUS BLOOD / Unknown 06/02/2024 10:00 AM EDT 06/02/2024 2:43 PM EDT Wilfredo Forte MD HEMATOLOGY ORDERABLES Final R esult Performing Organization Address [facility] Co de Phone Number [facility] [employer] [facility], [facility] [address] [facility] , [place] [address] * (ABNORMAL) BLOOD UREA NITROGEN (06/02/2024 10:00 AM EDT) [facility] BUN 6(L) 8 - 23 mg/dL 06/02/2024 6:27 PM EDT [facility], [facility] Blood VENOUS BLOOD / Unknown 06/02/2024 10:00 AM EDT 06/02/2024 2:43 PM EDT Wilfredo Forte MD CHEMISTRY ORDERABLES Final Re sult Performing Organization Address [facility] Co de Phone Number [facility] [employer], [facility] [address] [facility] , [place] [address] documented in this encounter Visit [...] documented as of this encounter Care Teams Auto Body Repairer Relationship Specialty Start Date End Date Viridiana Oropeza MD [address] [place] [address] PCP - General 01/19/09 09/14/24 Pankaj Navarro MD [address] [place] [address] Physician Otolaryngology 09/18/23 documented as of this encounter
--- OUTSIDE RECORDS SUMMARY | 2024-09-21 10:11 | XMS_ITS | Clinical Summary ---
Author Organization [facility] Address [address] [place] [address] Phone Care Team Providers Care Seo Specialist Name Role Phone Pankaj Navarro MD Unavailable [phone] Allergies Active Allergy Reactions Criticality Noted Date [...] migh t be different from the original. Pharmacy:[id number] [place] [address] [address] [phone] Controlled Contract Updated / Signed 08/17/2022- [facility] Informed Consent Updated / Signed 08/17/2022 [...] SEP VBP [address] [place] [id number] Viridiana Oropeza MD Central Patient Navigator Outreach (AWV Questionnaire) 08/07/2024 Telephone [facility] [address] [place] [address] Viridiana Oropeza MD Refill (Oxycodone - refill ) 07/30/2024 Patient Outreach [facility] [place] [facility] [facility] Marco Antonio Moya [address]. [address] [place] [address] Wen Ayers, DAVID - Telephonic Outreach; Hospital Follow Up 07/28/2024 Patient Outreach SEP Care Managment [facility] Marco Antonio Moya [address]. [address] [place] [address] Lexis Kahn RN Hospital Follow Up 07/21/2024 4:39 PM EDT - 07/26/2024 4:06 PM EDT Hospital Encounter [address] [place] [address] Cat Jules MD Buchanan, Jamie L, DO ZAC (acute kidney injury) (Primary Dx); Pancolitis (HCC) Discharge Disposition: Home or Self Care 07/21/2024 Travel 07/07/[address] [address] Viridiana Oropeza MD Refill (Percocet refill request) 06/27/2024 10:42 AM EDT - 06/27/2024 12:11 [place] [address] Mango Carvajal MD Allergic drug rash (Primary Dx) Discharge Disposition: Home or Self Care 06/27/2024 Travel 06/23/2024 Results Follow-Up [address] [address] Lucia Dunlap PA-C COMPLIANCE OPIOID PANEL QUANT ONLY, URINE 06/23/2024 Telephone [facility] [address] [place] [address] Viridiana Oropeza MD Relaying Information [...] ) 06/22/2024 11:30 AM EDT Office Visit [facility] [address] [place] [address] Viridiana Oropeza MD Dermatitis (Primary Dx); Chronic pain syndrome; DDD (degenerative disc disease), cervical; Medication monitoring encounter; 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 No 07/22/2024 Overall Financial Resource Strain (CARDIA) Answe r Date Recorded How hard is it for you to pa y for the very basics like food, housing, medical care, and heating? Not hard at all 07/22/2024 PHQ-2 Answer Date Recorded PHQ-2 Total Score 0 07/22/2024 [facility] [place] of Occupat ional Health - Occupational Stress [...] needed for daily living? No 01/21/2020 [facility] IP Transportation Answer D ate [...] years 1-dose series) 2016 COVID-19 Vaccine ( season) 2023 03/27/2023, 08/17/2021 DTaP/TDaP/Td (2 - [...] 11:37 AM EDT) No Julia Chicas, RN Medical Devices Implanted Type Area Visual Effects Artist Device Identifier Shelf Expiration Date Model [...] PM EDT GLUCOSE METER POC Routine 07/24/2024 5: 08 PM EDT HOME HEALTH ORDERS (FACE TO [...] (degenerative disc disease), cervical Medication monitoring encounter HEMOGLOBIN A1C Routine 04/28/2024 11:37 AM [...] - 100 mg/dL 07/26/2024 11:21 AM EDT [facility] Sample Type Capillary 07/26/2024 11:21 AM EDT [facility] Patient Status Non-Critical Patient 07/26/2024 11:21 AM EDT [facility] Blood BLOOD SPECIMEN / Unknown 07/26/2024 11:20 AM EDT 07/26/2024 11:21 AM EDT us Anil Thompson DO POINT OF CARE TEST ORDERABLE S Final Result Performing Organization Address City/[facility]/ZIP Co de Phone Number [facility] [address] [place] [phone] * ECG AND WAVEFORMS - TELEMETRY (07/26/2024 7:58 AM EDT) Only the most recent of8 resultswithin the time period is included. [facility] ECG INTERPRET Sinus with IVCD [facility] 07/26/2024 7:58 AM EDT Narrative [facility] - 07/26/2024 8:03 AM EDT EH - ROUTINE NC 0.20 QRS 0.11 RR 0.88 QT 0.37 QTc 0.39 See Clinical Report link for waveform capture us Unknown Provider POINT OF CARE CARDIOLOGY Final Result Performing Organization Address City/[facility]/ZIP Co de Phone Number [facility] [address] [place] [address] * (ABNORMAL) CBC WITH DIFF (07/26/2024 6:09 AM EDT) Only the most recent of5 resultswithin the time period is included. [facility] WBC 11.0(H) 3.7 - 10.3 x10(3)/mcL 07/26/2024 [...] 07/26/2024 7:44 AM EDT [facility] RDW 15.7(H) <=14.9 % 07/26/2024 7:44 AM EDT [facility] Platelet 297 155 - 369 x10(3)/mcL 07/26/2024 7:44 AM EDT [facility] MPV 9.9 8.8 - 12.5 fL 07/26/2024 7:44 AM EDT [facility] Neut Percent 44.6 % 07/26/2024 7:44 AM EDT [facility] Comment:Neutrophils equals s egs plus bands Imm Gran% 0.7 % 07/26/2024 7:44 AM EDT [facility] Comment:Automated count of m etamyelocytes, myelocytes and promyelocytes. Lymph Percent 44.0 % 07/26/2024 7:44 AM EDT [facility] [place]oir Percent 6.1 % 07/26/2024 7:44 AM EDT [facility] Eos Percent 4.2 % 07/26/2024 7:44 AM EDT [facility] Baso Percent 0.4 % 07/26/2024 7:44 AM EDT [facility] Neut # 4.9 1.6 - 6.1 x10(3)/mcL 07/26/2024 7:44 AM EDT [facility] Comment:Neutrophils equals s egs plus bands IMMGRAN# 0.1 0.0 - 0.1 x10(3)/mcL 07/26/2024 7:44 AM EDT [facility] Comment:Automated count of m etamyelocytes, myelocytes and promyelocytes. An absolute IG <0.1 is reported as 0.0. Lymph # 4.9(H) 1.2 - 3.9 x10(3)/mcL 07/26/2024 7:44 AM EDT [facility] [place] # 0.7 0.3 - 0.9 x10(3)/mcL 07/26/2024 7:44 AM EDT [facility] Eos# 0.5 0.0 - 0.5 x10(3)/mcL 07/26/2024 7:44 AM EDT [facility] Baso # 0.0 0.0 - 0.1 x10(3)/mcL 07/26/2024 7:44 AM EDT [facility] Blood VENOUS BLOOD / Unknown Venipuncture / Unknown 07/26/2024 6:09 AM EDT 07/26/2024 7:29 AM EDT us Anil Thompson DO HEMATOLOGY ORDERABLES Final Result [facility] [address] [facility], [place] [address] * EC ECHOCARDIOGRAM LIMITED (07/25/2024 2:20 PM [...] 6:23 AM EDT) Only the most recent of3 resultswithin the time period is included. Sodium 141 136 - 145 mmol/L 07/25/2024 8:18 AM EDT [facility] Potassium 4.3 3.5 - 5.0 mmol/L 07/25/2024 8:18 AM EDT [facility] Chloride 108(H) 98 - 107 mmol/L 07/25/2024 8:18 AM EDT [facility] Total CO2 23 22 - 29 mmol/L 07/25/2024 8:18 AM EDT [facility] Anion Gap 10 7 - 16 mmol/L 07/25/2024 8:18 AM EDT [facility] Calcium 8.8 8.8 - 10.4 mg/dL 07/25/2024 8:18 AM EDT [facility] Glucose Lvl 103(H) 70 - 99 mg/dL 07/25/2024 8:18 AM EDT [facility] BUN 13 8 - 23 mg/dL 07/25/2024 8:18 AM EDT [facility] Creatinine 1.40(H) 0.67 - 1.30 mg/dL 07/25/2024 8:18 AM EDT [facility] eGFR (CKD-EPIcr 2020) 55(L) >=60 mL/min/1.7 3 m2 07/25/2024 8:18 AM EDT [facility] Comment:Estimated GFR was ca lculated using the CKD-EPIcr (2020) equation refit without race. The equation is recommended by the National Kidney Foundation - [place] [employer] of Nephrology Task Force. Blood VENOUS BLOOD / Unknown Venipuncture / Unknown 07/25/2024 6:23 AM EDT 07/25/2024 7:43 AM EDT us Anil Thompson DO CHEMISTRY ORDERABLES Final R esult [facility] [address] [facility] , [place] [address] * BLOOD CULTURE (NO STAIN) (07/23/2024 8:10 AM EDT) Only the most recent of4 resultswithin the time period is included. Culture Result No Growth at 120 hours. BLOOD CULTURE (NO STAIN) 07/28/2024 9:00 AM EDT [facility] Blood VENOUS BLOOD / Unknown Venipuncture / Unknown 07/23/2024 8:10 AM EDT 07/23/2024 8:20 AM EDT Chapo Calvin MD MICROBIOLOGY - GENERAL ORDER ARJUN Final Result Performing Organization Address City/[facility]/ZIP Co de Phone Number [facility] [employer] [address] , [place] [address] * (ABNORMAL) SEDIMENTATION RATE AUTOMATED (07/23/2024 8:10 AM EDT) Only the most recent of2 resultswithin the time period is included. Pathologist [facility] Sed Rate 39(H) 0 - 20 mm/hr 07/23/2024 9:28 AM EDT [employer] Blood VENOUS BLOOD / Unknown Venipuncture / Unknown 07/23/2024 8:10 AM EDT 07/23/2024 8:21 AM EDT Chapo Calvin MD HEMATOLOGY ORDERABLES Final Result Performing Organization Address City/[facility]/ZIP Co de Phone Number [facility] [employer] [address] , [place] [address] * (ABNORMAL) C-REACTIVE PROTEIN (07/23/2024 8:10 AM EDT) Only the most recent of2 resultswithin the time period is included. CRP 94.55(H) <=5.00 mg/L 07/23/2024 12:34 PM EDT [employer] Blood VENOUS BLOOD / Unknown Venipuncture / Unknown 07/23/2024 8:10 AM EDT 07/23/2024 8:21 AM EDT Chapo Calvin MD CHEMISTRY ORDERABLES Final R esult Performing Organization Address City/[facility]/ZIP Co de Phone Number [facility], [address] , [place] [address] * (ABNORMAL) CREATINE KINASE (07/23/2024 8:10 AM EDT) CK 13(L) 39 - 308 U/L 07/23/2024 12:34 PM EDT [facility] Blood VENOUS BLOOD / Unknown Venipuncture / Unknown 07/23/2024 8:10 AM EDT 07/23/2024 8:21 AM EDT Chapo Calvin MD CHEMISTRY ORDERABLES Final R esult Performing Organization Address [facility] Co de Phone Number [facility], [address] , [place] [address] * (ABNORMAL) COMPREHENSIVE METABOLIC PANEL (07/23/2024 8:10 AM EDT) Only the most recent of2 resultswithin the time period is included. Pathologist [facility] Sodium 138 136 - 145 mmol/L 07/23/2024 [...] 07/23/2024 9:14 AM EDT [facility] Creatinine 1.67(H) 0.67 - 1.30 mg/dL 07/23/2024 9:14 AM EDT [facility] Albumin 3.1(L) 3.2 - 4.6 gm/dL 07/23/2024 9:14 AM EDT [facility], [facility] Total Protein 5.7(L) 6.4 - 8.3 gm/dL 07/23/2024 9:14 AM EDT [facility] Bili Total 0.2 0.2 - 1.4 mg/dL 07/23/2024 9:14 AM EDT [facility] ALT 6 <=41 U/L 07/23/2024 9:14 AM EDT [facility] AST 10 <=40 U/L 07/23/2024 9:14 AM EDT [facility], [facility] Alk Phos 82 40 - 129 U/L 07/23/2024 9:14 AM EDT [facility], [facility] eGFR (CKD-EPIcr 2020) 45(L) >=60 mL/min/1.7 3 m2 07/23/2024 9:14 AM EDT [facility] Comment:Estimated GFR was ca lculated using the CKD-EPIcr (2020) equation refit without race. The equation is recommended by the National Kidney Foundation - [place] [employer] of Nephrology Task Force. Blood VENOUS BLOOD / Unknown Venipuncture / Unknown 07/23/2024 8:10 AM EDT 07/23/2024 8:21 AM EDT Chapo Calvin MD CHEMISTRY ORDERABLES Final R esult [facility] [address] [facility] , [place] [address] * (ABNORMAL) C DIFF INTERPRETATION (07/22/2024 12:04 PM EDT) C Diff Toxin DNA Positive(A) Negative 07/22/2024 1:41 PM EDT [facility] NAP1 Presumptive Neg Presumptive Neg 07/22/2024 1:41 PM EDT [facility] GDH Antigen Positive(A) Negative 07/22/2024 1:41 PM EDT [facility], [facility] C diff toxin A/B Positive(A) Negative 07/22/2024 1:41 PM EDT [facility] Stool RECTUM STRUCTURE / Unknown 07/22/2024 12:04 PM EDT 07/22/2024 12:11 PM EDT Narrative [facility] - 07/22/2024 1:41 PM EDT Toxin producing C diff target DNA sequences detected. Toxins A/B positive. CDI likely. Consider initiation of severity-based CDI therapy according to CDI management guidance. Anil Thompson DO MICROBIOLOGY - GENERAL ORDER ARJUN Final Result Performing Organization Address [facility] Co de Phone Number [facility], [address] , [place] [address] * C DIFF GDH AG AND TOXIN A+B (07/22/2024 12:04 PM EDT) Stool RECTUM STRUCTURE / Unknown 07/22/2024 12:04 PM EDT 07/22/2024 12:11 PM EDT Anil Thompson DO MICROBIOLOGY - GENERAL ORDER ARJUN Final Result Performing Organization Address [facility] Phone Number [address] [place] [place] [address] [address] * C DIFF TOXIN DNA (07/22/2024 12:04 PM EDT) Stool RECTUM STRUCTURE / Unknown 07/22/2024 12:04 PM EDT 07/22/2024 12:11 PM EDT Anil Thompson DO MICROBIOLOGY - GENERAL ORDER ARJUN Final Result Performing Organization Address [facility] Co de Phone Number [address] [place] [place] [address] [address] * SHIGA TOXIN (07/22/2024 12:04 PM EDT) Pathologist [facility] Shiga Toxin Shiga toxins (produced by E. coli) not detected. Shiga toxins (produced by E. coli) not detected. 07/23/2024 5:08 PM EDT [facility] [employer] Stool RECTUM STRUCTURE / Unknown 07/22/2024 12:04 PM EDT 07/22/2024 9:23 PM EDT Anil Thompson DO MICROBIOLOGY - GENERAL ORDER ARJUN Final Result Performing Organization Address [facility] de Phone Number [facility] , [place] [address] * STOOL CULTURE (NO STAIN) (07/22/2024 12:04 PM EDT) [facility] Culture No growth of enteric pathogens, including Salmonella, Shigella, Campylobacter, Vibrio, Yersinia, Aeromonas, Plesiomonas, or E. coli O157. 07/24/2024 7:50 AM EDT [facility] [employer], [facility] Stool RECTUM STRUCTURE / Unknown 07/22/2024 12:04 PM EDT 07/22/2024 12:11 PM EDT us Anil Thompson DO MICROBIOLOGY - GENERAL ORDER ARJUN Final Result Performing Organization Address [facility] Phone Number [facility] [employer], [address] , [place] [address] * OVA AND PARASITE BASIC (07/22/2024 12:04 PM EDT) [facility] Giardia Lamblia Antigen Not Detected Not detected 07/22/2024 6:39 PM EDT [facility] [employer] [facility] Cryptosporidium Exam Not Detected Not Detected 07/22/2024 6:39 PM EDT [facility], [employer] Stool RECTUM STRUCTURE / Unknown 07/22/2024 12:04 PM EDT 07/22/2024 12:11 PM EDT us Anil Thompson DO MICROBIOLOGY - GENERAL ORDER ARJUN Final Result Performing Organization Address [facility]/State/ZIP Co de Phone Number [employer] [address] [facility] , [address] [place] [phone] * US RENAL AND BLADDER (07/22/2024 10:53 [...] evaluation of the kidneys and bladder with client account representative images and pulp roller notes sent to PACS for radiologist review. [...] sonographic evaluation of the kidneys andbladder with client account representative images and pulp roller notes sent to PACS forradiologist review. FINDINGS: [...] the ordering clinician. us Anil Thompson DO [facility] [place] ORDERABLES Final Resu lt * (ABNORMAL) [...] ORDERABLES Final R esult [facility], [address] , [address] [place], [place] [id number] * VANCOMYCIN LEVEL (07/22/2024 4:45 AM EDT) Vanco Random 14.6 mcg/mL 07/22/2024 5:44 AM EDT [facility] Blood VENOUS BLOOD / Unknown Venipuncture / Unknown 07/22/2024 4:45 AM EDT 07/22/2024 5:07 AM EDT us Cat Jules MD CHEMISTRY ORDERABLES Final Result Performing Organization Address City/[facility]/ZIP Co de Phone Number [facility] [address] [facility] , [place] [address] * (ABNORMAL) URINALYSIS REFLEX (07/21/2024 [...] 07/21/2024 6:17 PM EDT [facility] UA Mucus Trace /LPF 07/21/2024 6:17 PM EDT [facility] UA Bacteria Trace(A) Negative /HPF 07/21/2024 6:17 PM EDT [facility] Urine STRUCTURE OF URINARY TRACT PROPER / Unknown 07/21/2024 6:04 PM EDT 07/21/2024 6:09 PM EDT Cat Jules MD URINE ORDERABLES Final Res ult Performing Organization Address [facility]/ZIP Co de Phone Number [facility], [address], [place] [address] * EXTRA BE URINE CX (07/21/2024 6:04 PM EDT) Urine STRUCTURE OF URINARY TRACT PROPER / Unknown 07/21/2024 6:04 PM EDT 07/21/2024 6:09 PM EDT Cat Jules MD MICROBIOLOGY - GENERAL ORD ERABLES Final Result Performing Organization Address City/[facility]/ZIP Co de Phone Number [facility] [address] [place] [phone] * URINE CULTURE (NO STAIN) (07/21/2024 6:04 PM EDT) Culture Multiple bacterial species isolated from urine consistent with urogenital commensal organisms. 07/23/2024 3:11 AM EDT [facility] [employer] Urine STRUCTURE OF URINARY TRACT PROPER / Unknown 07/21/2024 6:04 PM EDT 07/21/2024 6:17 PM EDT us Cat Jules MD MICROBIOLOGY - GENERAL ORD ERABLES Final Result Performing Organization Address City/[facility] Co de Phone Number [facility] [address] [facility] , [address] [place] [phone] * (ABNORMAL) PROCALCITONIN (07/21/2024 5:42 PM EDT) Procalcitonin 0.50(H) <=0.49 ng/mL 07/21/2024 6:35 PM EDT [employer] Blood VENOUS BLOOD / Unknown Venipuncture / Unknown 07/21/2024 5:42 PM EDT 07/21/2024 5:51 PM EDT Narrative [facility] - 07/21/2024 6:35 PM EDT Procalcitonin <0.50 [...] ORDERABLES Final Result Performing Organization Address [facility]/ZIP Co de Phone Number [facility] [employer] [address] [facility] [address], [place] [address] * LACTIC ACID (07/21/2024 5:42 PM EDT) Lactic Acid 1.2 0.5 - 1.9 mmol/L 07/21/2024 5:59 PM EDT [facility] Blood VENOUS BLOOD / Unknown Venipuncture / Unknown 07/21/2024 5:42 PM EDT 07/21/2024 5:45 PM EDT us Cat Jules MD CHEMISTRY ORDERABLES Final Result Performing Organization Address [facility] Co de Phone Number [facility] [address] [place] [address] * XR CHEST AP PORTABLE [...] 07/22/2024 6:26 PM EDT [facility] Blood VENOUS BLOOD / Unknown Venipuncture / Unknown 07/21/2024 4:58 PM EDT 07/21/2024 5:02 PM EDT us Cat Jules MD MICROBIOLOGY - GENERAL ORD ERABLES Final Result [facility] [address] [facility] , [place] [address] * (ABNORMAL) COMPLIANCE OPIOID PANEL QUANT ONLY, URINE (06/22/2024 12:16 PM EDT) Pathologist [facility] Medications Expected Oxycodone 06/23/2024 5:38 PM EDT [facility] Hydrocodone <50 Cutoff 50 ng/mL ng/mL 06/23/2024 5:38 PM EDT [facility] Comment:e.g., Lorcet, Lortab , Vicodin, [place]; Minor Metabolite of Codeine Dihydrocodeine <50 Cutoff 50 ng/mL ng/mL 06/23/2024 5:38 PM EDT [facility] Comment:e.g., Didrate, Parzo ne, Parlor, Synalgos; Metabolite of Hydrocodone Norhydrocodone <50 Cutoff 50 ng/mL ng/mL 06/23/2024 5:38 PM EDT [facility], [facility] Comment:Metabolite of Hydroc odone Hydromorphone <50 Cutoff 50 ng/mL ng/mL 06/23/2024 5:38 PM EDT [facility] Comment:e.g., Dilaudid; also Metabolite of Hydrocodone and Minor Metabolite of Morphine Hydromorphone Glucuronide <50 Cutoff 50 ng/mL ng/mL 06/23/2024 5:38 PM EDT [facility] Comment:Metabolite of Hydrom orphone Oxycodone 1,269(H) Cutoff 50 ng/mL ng/mL 06/23/2024 5:38 PM EDT [facility] Comment:e.g., Oxycontin, Per cocet, Endocet, Percodan, Roxicet Noroxycodone 1,237(H) Cutoff 50 ng/mL ng/mL 06/23/2024 5:38 PM EDT [facility] Comment:Metabolite of Oxycod one Oxymorphone <50 Cutoff 50 ng/mL ng/mL 06/23/2024 5:38 PM EDT [facility] Comment:e.g., Opana; Metabol ite of Oxycodone Oxymorphone Glucuronide >2,000(H) Cutoff 50 ng/mL ng/mL 06/23/2024 5:38 PM EDT [facility] Comment:Metabolite of Oxycod one Noroxymorphone >2,000(H) Cutoff 50 ng/mL ng/mL 06/23/2024 5:38 PM EDT [facility] Comment:Metabolite of Oxycod one, and Oxymorphone, Noroxycodone Metabolite Tramadol <50 Cutoff 50 ng/mL ng/mL 06/23/2024 5:38 PM EDT [facility] Comment:e.g., Ultram, ConZip K-Zpfkfihqf-ofl-Tra madol <50 Cutoff 50 ng/mL ng/mL 06/23/2024 5:38 PM EDT [facility] Comment:Metabolite of Tramad ol Codeine <50 Cutoff 50 ng/mL ng/mL 06/23/2024 5:38 PM EDT [facility] Comment:e.g., Acetaminophen w/Codeine, Tylenol3 w/ Codeine Codeine Glucuronide <50 Cutoff 50 ng/mL ng/mL 06/23/2024 5:38 PM EDT [facility] Comment:Metabolite of Codein e Meperidine <50 Cutoff 50 ng/mL ng/mL 06/23/2024 5:38 PM EDT [facility] Comment:e.g., Demerol, Pethi dine Normeperidine <50 Cutoff 50 ng/mL ng/mL 06/23/2024 5:38 PM EDT [facility] Comment:Metabolite of Meperi dine Morphine <50 Cutoff 50 ng/mL ng/mL 06/23/2024 5:38 PM EDT [facility], [facility] Comment:e.g., MS Contin, Jessica anol; Metabolite of Codeine and Heroin; may reflect poppy seed ingestion [id number] elio <25 Cutoff 25 ng/mL ng/mL 06/23/2024 5:38 PM EDT [facility] Comment:Metabolite of Morphi ne. [id number] elio <25 Cutoff 25 ng/mL ng/mL 06/23/2024 [...] ng/mL 06/23/2024 5:38 PM EDT [facility], [facility] Comment:Buprenorphine Metabo lite Norbuprenorphine <5 Cutoff 5 ng/mL ng/mL 06/23/2024 5:38 PM EDT [facility] Comment:Buprenorphine Metabo lite Norbuprenorphine Glucuronide <10 Cutoff 10 ng/mL ng/mL 06/23/2024 5:38 PM EDT [facility] Comment:Buprenorphine Metabo lite Fentanyl <1 Cutoff 1 ng/mL ng/mL 06/23/2024 5:38 PM EDT [facility] Comment:e.g.,Duragesic, Oral et, Actiq, Sublimaze, Innovar, Lazanda Norfentanyl <1 Cutoff 1 ng/mL ng/mL 06/23/2024 5:38 PM EDT [facility] Comment:Metabolite of Fentan yl 6-Monoacetylmorphin e (6MAM) <10 Cutoff 10 ng/mL ng/mL 06/23/2024 5:38 PM EDT [facility] Comment:Metabolite of Heroin ; Morphine is expected Methadone <50 Cutoff 50 ng/mL ng/mL 06/23/2024 5:38 PM EDT [facility] Comment:e.g., Dolophine, Met hadose, Amidone EDDP <50 Cutoff 50 ng/mL ng/mL 06/23/2024 5:38 PM EDT [facility] Comment:Methadone Metabolite Tapentadol <50 Cutoff 50 ng/mL ng/mL 06/23/2024 5:38 PM EDT [facility] Comment:Nucynta Tapentadol-Glucuron elio <50 Cutoff 50 ng/mL ng/mL 06/23/2024 5:38 PM EDT [facility] Comment:Metabolite of Tapent adol Urine Creatinine 121.0 mg/dL 06/24/19 5:38 PM EDT [facility] Comment: Greater than 20: Consistent with valid sample Greater than 2 but less than 20: Possible dilution Less than 2: Questionable valid sample Urine STRUCTURE OF URINARY TRACT PROPER / Unknown 06/22/2024 12:16 PM EDT 06/22/2024 12:16 PM EDT Narrative [facility] - 06/23/2024 5:38 PM EDT The absence of expected drug(s), and/or drug metabolite(s), may indicate non-compliance, diluted or adulterated urine, poor drug absorption, concentration of drug below the cut-off, timing of specimen collection relative to administration of drug, or limitations of testing. Specimens are held for 7 days. This test was developed, and its performance characteristics determined by [facility] ([facility]). It has not been cleared or approved by the FDA. This test is used for clinical purposes. It should not be regarded as investigational or for research. [facility] is certified under the Clinical Laboratory Improvement Amendments (CLIA) as qualified to perform high complexity clinical laboratory testing. us Viridiana Oropeza MD URINE ORDERABLES Final Result Performing Organization Address [facility] Co de Phone Number [facility] [address], [address] [place] [phone] [facility] [address] [place] [address] * (ABNORMAL) HEMOGLOBIN A1C (04/28/2024 11:37 AM EDT) Hgb A1C 6.4(H) 4.2 - 5.6 % 04/28/2024 10:06 PM EDT [facility] Est. Avg Glucose 137 mg/dL 04/28/2024 10:06 PM EDT [facility] Blood VENOUS BLOOD / Unknown Venipuncture / Unknown 04/28/2024 11:37 AM EDT 04/28/2024 11:37 AM EDT Narrative [facility] - 04/28/2024 10:06 PM EDT REFERENCE RANGE: Normal: 4.0-5.6% Pre-diabetes: 5.7-6.4% Provisional diagnosis of diabetes: >6.4% Hgb F>10% and anything which shortens red cell survival, such as hemolytic anemia, or unstable hemoglobin variants such as HbSS, HbSC, or HbCC, will lower the HbA1c value associated with a given level of glycemic control. Lucia Dunlap PA-C CHEMISTRY ORDERABLES Final Resu lt Performing Organization Address [facility]/ZIP Co de Phone Number [facility] [address] [facility] , [place] [address] [facility] [address] [place] [address] * (ABNORMAL) LIPID SCREEN (01/06/2024 11:42 AM EST) Cholesterol 141 <200 mg/dL 01/06/2024 4:22 PM EST [facility] Comment: < 200 Desirable 200 - 239 Borderline High >= 240 High Triglyceride 179(H) <150 mg/dL 01/06/2024 4:22 PM EST [facility] Comment: < 150 Normal 150 - 199 Borderline High 200 - 499 High >= 500 Very High HDL 34(L) >=40 mg/dL 01/06/2024 4:22 PM EST [facility] [employer], [facility] Comment: > 60 Optimal 40 - 60 Acceptable < 40 Low LDL Calculated 76 <100 mg/dL 01/06/2024 4:22 PM EST [facility] [employer] Comment: < 100 Optimal 100 - 129 Near or above optimal 130 - 159 Borderline High 160 - 189 High >= 190 Very High Non-HDL-C Calculated 107 <=129 mg/dL 01/06/2024 4:22 PM EST [facility] [employer] Comment: <130 Desirable 130-159 Above Desirable 160-189 Borderline High 190-219 High >= 220 Very High Fasting Specimen? Yes None 024 4:22 PM EST [facility] Blood VENOUS BLOOD / Unknown Venipuncture / Unknown 01/06/2024 11:42 AM EST 01/06/2024 11:42 AM EST us Viridiana Oropeza MD CHEMISTRY ORDERABLES Final Resu lt [facility] [address] [address] [facility] [address] [place] [address] * MICROALBUMIN/CREATININE RATIO URINE (06/26/2023 2:30 PM EDT) Urine Microalb 27.3 mg/L 06/26/2023 10:34 PM EDT [facility] Urine Creatinine 189.4 mg/dL 06/26/2023 10:34 PM EDT [facility] Ur Microalb/Creat 14 0 - 30 mg/g 06/26/2023 10:34 PM EDT [facility] Urine URINE SPECIMEN COLLECTION / Unknown 06/26/2023 2:30 PM EDT 06/26/2023 2:30 PM EDT Viridiana Oropeza MD URINE ORDERABLES Final Result Performing Organization Address [facility] Co de Phone Number [facility] [address] [facility], [place] [address] * DIABETES EYE EXAM (11/19/2017) Left Diabetic Retinopathy Not Present Present/Not Present SEP OFFICE Right Diabetic Retinopathy Not Present Present/Not Present SEP OFFICE Result [facility] Viridiana Oropeza MD HEALTH MAINTENANCE Final Result Performing Organization Address [facility] Co de Phone Number SEP OFFICE * GMED COLONOSCOPY (06/16/2015 10:15 AM EDT) 06/16/2015 10:1 5 AM EDT Impressions [facility] - 06/16/2015 11:43 AM EDT Grade 1 internal hemorrhoids. Normal mucosa in the whole colon. Plan: Screening Colonoscopy in 10 years. This section is an excerpt of the full report. Pankaj Chavez MD GI PROCEDURE ORDERABLES Jaimee l Result Performing Organization Address [facility] Co de Phone Number [facility] [address] [place] [address] * HEPATITIS C ANTIBODY IGM + IGG (01/24/2011 10:10 AM EST) Hep C Ab Negative Negative [facility] Blood specimen (specimen) VENOUS STRUCTURE / Unknown 01/24/2011 10:10 AM EST 01/24/2011 10:21 AM EST Result [facility] Nereida Valle MD IMMUNOLOGY ORDERABLES Fin al Result [facility] [address] [place] [address] from Last 3 Months or Most Recently Relevant to Health Maintenance Additional Health Concerns Infection Onset Date Last Indicated C-diff 07/22/2024 07/22/2024 [place] [address] [place] [address] [place] MEDICARE PART B [id number] [place] [address] [place] [address] [address] MEDICARE PART B [address] [place] [id number] MEDICARE [place] [id number] MEDICARE PART B MEDICARE PART B [facility] [id number] [facility] MEDIC[facility] PART B [facility] [id number] MDR Advance Directives For more information, please contact: [phone] * Full Code (Latest Code Status on File) Date Activated Date Inactivated Comments 07/21/2024 8:09 PM 07/26/2024 8:11 PM * Full Code Date Activated Date Inactivated Comments 08/28/2023 10:07 PM 09/03/2023 5:46 PM Care Teams Seo Specialist Relationship Specialty Start Date End Date Pankaj Navarro MD [address] [place] [address] Physician Otolaryngology 09/18/23
--- OUTSIDE RECORDS SUMMARY | 2024-09-21 10:11 | XMS_ITS | Encounter Summary ---
Author Organization [place] Address [address] [place] [address] Care Team Providers Care Commodity Broker Name Role Phone Viridiana Oropeza MD Primary Care Provider [phone] Pankaj Navarro MD Unavailable [phone] Encounter Details Date Type Department Care Team (Late st Contact Info) Description 06/08/2024 Lab Requisition [facility] [place] [address] Wilfredo Forte MD Infection following a procedure, superficial incisional surgical site, subsequent encounter Social History Tobacco Use Types Packs/Day Years Used Date Smoking Tobacco: Never Passive Smoke Exposure: Never Smokeless Tobacco: Never Alcohol Use Standard Drinks/Week Comments No 0 (1 standard drink = 0.6 oz pur e alcohol) [facility] Utilities Answer Date Recorded In [...] Date Recorded PHQ-2 Total Score 0 03/23/2024 [facility] of Occupat ional Health - Occupational Stress [...] things needed for daily living? No 01/21/2020 [facility] IP Transportation Answer D ate Recorded [...] 06/08/2024 8:47 PM EDT [facility] Blood VENOUS BLOOD / Unknown 06/08/2024 10:00 AM EDT 06/08/2024 4:41 PM EDT Wilfredo Forte MD CHEMISTRY ORDERABLES Final Re sult Performing Organization Address [facility] Co de Phone Number [facility] [address] [facility] , [place] [address] * (ABNORMAL) HEPATIC FUNCTION PANEL (06/08/2024 10:00 AM EDT) [facility] Total Protein 6.0(L) 6.4 - 8.3 gm/dL [...] ORDERABLES Final Re sult Performing Organization Address [facility]/ZIP Co de Phone Number [facility] [address] [facility] , [place] [address] * CREATININE (06/08/2024 10:00 AM EDT) Creatinine 1.06 0.67 - 1.30 mg/dL 06/08/2024 8:47 PM EDT [facility] eGFR (CKD-EPIcr 2020) 77 >=60 mL/min/1.7 3 m2 06/08/2024 8:47 PM EDT [facility] Comment:Estimated GFR was ca lculated using the CKD-EPIcr (2020) equation refit without race. The equation is recommended by the National Kidney Foundation - [place] [employer] of Nephrology Task Force. Blood VENOUS BLOOD / Unknown 06/08/2024 10:00 AM EDT 06/08/2024 4:41 PM EDT us Wilfredo Forte MD CHEMISTRY ORDERABLES Final Re sult [facility] [employer] [address] [facility] , [place] [address] * (ABNORMAL) CBC WITH DIFF (06/08/2024 10:00 [...] 06/08/2024 5:09 PM EDT [facility] Platelet 294 155 - 369 x10(3)/[facility] 06/08/2024 5:09 PM EDT [facility] MPV 10.8 8.8 - 12.5 fL 06/08/2024 5:09 PM EDT [facility] Neut Percent 37.7 % 06/08/2024 5:09 PM EDT [facility] Comment:Neutrophils equals s egs plus bands Imm Gran% 0.2 % 06/08/2024 5:09 PM EDT [facility] Comment:Automated count of m etamyelocytes, myelocytes and promyelocytes. Lymph Percent 45.4 % 06/08/2024 5:09 PM EDT [facility] [place] Percent 9.0 % 06/08/2024 5:09 PM EDT [facility] Eos Percent 7.3 % 06/08/2024 5:09 PM EDT [facility] Baso Percent 0.4 % 06/08/2024 5:09 PM EDT [facility] Neut # 3.4 1.6 - 6.1 x10(3)/[facility] 06/08/2024 5:09 PM EDT [facility] Comment:Neutrophils equals s egs plus bands IMMGRAN# 0.0 0.0 - 0.1 x10(3)/[facility] 06/08/2024 5:09 PM EDT [facility] Comment:Automated count of m etamyelocytes, myelocytes and promyelocytes. An absolute IG <0.1 is reported as 0.0. Lymph # 4.1(H) 1.2 - 3.9 x10(3)/[facility]L 06/08/2024 5:09 PM EDT [facility] [place] # 0.8 0.3 - 0.9 x10(3)/[facility] 06/08/2024 5:09 PM EDT [facility] Eos# 0.7(H) 0.0 - 0.5 x10(3)/[facility] 06/08/2024 5:09 PM EDT [facility] Baso # 0.0 0.0 - 0.1 x10(3)/[facility] 06/08/2024 5:09 PM EDT [facility] [employer] Blood VENOUS BLOOD / Unknown 06/08/2024 10:00 AM EDT 06/08/2024 4:41 PM EDT Wilfredo Forte MD HEMATOLOGY ORDERABLES Final R esult [facility] [employer] [address] [facility] , [place] [address] * (ABNORMAL) BLOOD UREA NITROGEN (06/08/2024 10:00 AM EDT) BUN 5(L) 8 - 23 mg/dL 06/08/2024 8:47 PM EDT [employer] Blood VENOUS BLOOD / Unknown 06/08/2024 10:00 AM EDT 06/08/2024 4:41 PM EDT Wilfredo Forte MD CHEMISTRY ORDERABLES Final Re sult Performing Organization Address City/[facility]/ZIP Co de Phone Number [facility] [employer] [facility] [address] [facility] , [place] [address] documented in this encounter Visit Diagnoses Diagnosis [...] documented as of this encounter Care Teams Commodity Broker Relationship Specialty Start Date End Date Viridiana Oropeza MD [address] [place] [address] PCP - General 01/19/09 09/14/24 Pankaj Navarro MD [address] [place] [address] Physician Otolaryngology 09/18/23 documented as of this encounter
--- NOTE | 2024-09-21 11:00 | US_ITS ---
FINAL REPORT CLINICAL HISTORY: mass rt neck COMPARISON: None FINDINGS: Limited sonographic images were obtained of the soft tissues in the right neck at the area of interest. There is a solid mass in the right submandibular region measuring up to 3.6 cm. It is unclear whether this is arising from the submandibular gland or separate, such as an enlarged lymph node. The left submandibular gland and submandibular region is normal. The bilateral parotid glands are normal. IMPRESSION: Right submandibular mass. Recommend further assessment with MRI or CT with contrast. Reviewed, Interpreted and Dictated by Mechelle Roman MD Transcribed by Rosalind Becker Authenticated and [facility]
== END 2024-09-21 23:59 | disposition home or self-care (01) ==
LOC: RAD 10:01
PROVIDERS: PCP Family Medicine; Visit Provider Family Medicine
DX: R22.1 Localized swelling, mass and lump, neck (principal)
CPT/HCPCS: 76536

== ENCOUNTER 2024-09-24 14:49 | Outpatient (CLI) | payer MEDICARE, MEDICAID, SELFPAY ==
--- OUTSIDE RECORDS SUMMARY | 2018-12-31 14:56 | XMS_ITS | Encounter Summary ---
Author Organization [place] [address] Care Team Providers Care Metal Control Coordinator Name Role Phone Viridiana Oropeza MD Primary Care Provider [phone] Encounter Details Date Type Department Care Team (Latest Contact Info) Description 12/31/2018 1:56 PM [facility] Hospital Encounter [facility] Referral Lab 1 [place] [address] Fahad Kennedy MD [address] [place] [address] Pain in right hip Social History Tobacco Use Types Packs/Day Years Used Date Smoking Tobacco: Never Passive Smoke Exposure: Never Smokeless Tobacco: Never Alcohol Use Standard Drinks/Week Comments No 0 (1 standard drink = 0.6 oz pur e alcohol) [facility] Utilities Answer Date Recorded In the past 12 months has [employer] electric, gas, oil, or water company threatened to shut off services in your home? No 07/22/2024 Overall Financial Resource Strain (CARDIA) Answe r Date Recorded How hard is it for you to pa y for the very basics like food, housing, medical care, and heating? Not hard at all 07/22/2024 PHQ-2 Answer Date Recorded PHQ-2 Total Score 0 07/22/2024 [facility] [place] of Occupat ional Health - Occupational Stress [...] things needed for daily living? No 01/21/2020 [facility] IP Transportation Answer D ate Recorded In [...] 4:08 PM EDT Genesis Dumont RN * [place] Suicide Severity Rating Scale (Q shift for [...] documented as of this encounter Care Teams Metal Control Coordinator Relationship Specialty Start Date End Date Viridiana Oropeza MD [address] [place] [address] PCP - General 01/19/09 09/14/24 documented as of this encounter
--- OUTSIDE RECORDS SUMMARY | 2024-07-21 16:39 | XMS_ITS | Encounter Summary ---
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 Name Role Phone Viridiana Oropeza MD Primary Care Provider [phone] Pankaj Navarro MD Unavailable [phone] Reason for Visit * Reason Comments Abnormal Lab high wbc, referred d ue to possible hip infection after replacement * Auth/Cert/Inpt (Routine) Specialty Diagnoses / Procedures Referred By Contpedro t Referred To Contact Diagnoses ZAC (acute kidney injury) Referral ID Status Reason Start Date Expiration Date Visits Re quested Visits Authorized [id number] 1 1 Encounter Details Date Type Department Care Team (Latest Contact Info) Description 07/21/2024 4:39 PM EDT - 07/26/2024 4:06 PM EDT Hospital Encounter [facility] [place] [id number] Cat Jules MD [address] [place] [address] Anil Thompson DO [address] [place] [address] ZAC (acute kidney injury) (Primary Dx); Pancolitis (HCC) Discharge Disposition: Home or Self Care Social History Tobacco Use Types Packs/Day Years Used Date Smoking Tobacco: Never Passive Smoke Exposure: Never Smokeless Tobacco: Never Alcohol Use Standard Drinks/Week Comments No 0 (1 standard drink = 0.6 oz pur e alcohol) [facility] Utilities Answer Date Recorded In the past 12 months has [employer], gas, oil, or water [employer] threatened to shut off services in your home? No 07/22/2024 Overall Financial Resource Strain (CARDIA) Answe r Date Recorded How hard is it for you to pa y for the very basics like food, housing, medical care, and heating? Not hard at all 07/22/2024 PHQ-2 Answer Date Recorded PHQ-2 Total Score 0 07/22/2024 [employer] [place] [facility] - Occupational Stress [...] for daily living? No 01/21/2020 [facility] IP Transportation Answer D ate [...] Sign Reading Time Taken Comments Blood Pressure 128/56 07/26/2024 9:08 AM EDT Pulse 85 07/26/2024 3:04 PM EDT Temperature 36.4 C (97.6 F) 07/26/2024 9:08 AM EDT Respiratory Rate 18 07/26/2024 9:08 AM EDT Oxygen Saturation 93% 07/26/2024 9:08 AM EDT Inhaled Oxygen Concentration - - Weight 128.3 kg (282 lb 13.6 oz) 07/21/2024 9:49 PM EDT Height 175.3 cm (5' 9 ) 07/21/2024 9:49 PM EDT Body Mass Index 41.77 07/21/2024 9:49 PM EDT documented in this encounter Functional Status * Alcohol Screening Score Answer Date of Assessment Author 0 07/21/2024 10:04 PM MAHIT Fidencio Taylor RN * Drug Screening Score Answer Date [...] 03/23/2024 10:00 AM Tiffany Mccullough CCMA * Question Answer Date of Assessment Author Little interest or pleasure in doing things 0 07/22/2024 10:52 AM EDT Aviva Mcguire MSW Feeling down, depressed, or hopeless 0 07/22/2024 10:52 AM EDT Aviva Mcguire MSW PHQ-2 Total Score 0 07/22/2024 10:52 AM EDAviva Gavin MSW * PHQ-9 Total Score Answer Date of Assessment Author 0 07/22/2024 10:52 AM EDTiffany Gavin MSW * PHQ-2 Total Score Answer Date of Assessment Author 0 07/22/2024 10:52 AM EDTiffany Gavin MSW * Suicide Severity Rating Answer Date of Assessment Author No Risk 07/21/2024 4:08 PM EDT Genesis Dumont RN * [place] Suicide Severity Rating Scale (Q shift for [...] Mccullough CCMA documented in this encounter Discharge Summaries * Anil Thompson DO - 07/26/2024 1:18 PM EDT [facility] Patient Name: Jani Ingram : 1955 Admit Date: 07/21/2024 Discharge Date: 07/26/2024 Admitting Physician: Anil Thompson DO Discharging Physician: Anil Thompson DO Reason for Hospitalization: Active Hospital Problems C. difficile colitis Colitis Diarrhea *ZAC (acute kidney injury) Stage 3 chronic kidney disease (HCC) Hypertension associated with diabetes (HCC) Obesity, Class III, BMI 40-49.9 (morbid obesity) Type 2 diabetes mellitus with hyperglycemia (HCC) Brief Hospital Summary: Mr. Ingram is a 68yo male who was admitted 07/21 with C diff colitis in setting of recent course of IV abx for R hip infection. He was continued on po vancomycin with improvement. Recommend close follow up with primary ID provider (seen day prior to admission). Bacteremia: 1/2 Bcx + Staph xylosus. Suspected contaminant. Echo without evidence of vegetation. Repeat Bcx NGTD. Evaluated by ID. Continued on IV daptomycin during admission. Recommend follow up with primary ID physician on discharge. ZAC: Improved with IVFs. Continue to hold lisinopril, HCTZ until outpatient follow up/repeat labs. BP stable/at goal day of discharge. Labs and imaging follow-up needed: Follow up with PCP within 3 days of discharge. Follow up with specialists as instructed. Pending Labs Order Current Status Collection Date and Time BLOOD CULTURE (NO STAIN) Preliminary result 07/21/2024 4:58 PM BLOOD CULTURE (NO STAIN) Preliminary result 07/23/2024 8:10 AM BLOOD CULTURE (NO STAIN) Preliminary result 07/23/2024 8:10 AM ECG AND WAVEFORMS - TELEMETRY Preliminary result 07/24/2024 7:01 AM ECG AND WAVEFORMS - TELEMETRY Preliminary result 07/25/2024 7:03 PM Consultants: Treatment Team: Consulting Physician: Chapo Calvin MD Discharge Exam: Vitals: 07/26/24 0908 BP: 128/56 Pulse: 81 Resp: 18 Temp: 97.6 ??F (36.4 ??C) SpO2: 93% See Progress Note Correct Full Discharge Med List: Medication List PAUSE taking these medications hydroCHLOROthiazide 25 mg Tab Wait to take this until: July 29, 2024 Dose: 25 mg Qty: 30 Tablet Refills: 0 25 mg, Oral, DAILY lisinopriL 2.5 mg Tab Wait to take this until: July 29, 2024 Dose: 2.5 mg Qty: 90 Tablet Refills: 1 Commonly known as: PRINIVIL;ZESTril 2.5 mg, Oral, DAILY START taking these medications vancomycin 125 mg Cap Dose: 125 mg Qty: 28 Capsule Refills: 0 Commonly known as: VANCOCIN 125 mg, Oral, EVERY 6 HOURS SCHEDULED CONTINUE taking these medications acetaminophen 325 mg Tab Dose: 650 mg Refills: 0 Commonly known as: TYLENOL Blood Sugar Diagnostic Strp Qty: 50 Each Refills: 11 Check BS bid Blood-Glucose Meter Kit Qty: 1 Kit Refills: 0 Check BS bid famotidine 20 mg Tab Dose: 20 mg Qty: 30 Tablet Refills: 0 Commonly known as: PEPCID 20 mg, Oral, DAILY PRN Lancets Misc Qty: 50 Each Refills: 11 Check BS bid metFORMIN 1,000 mg Tab Dose: 1,000 mg Qty: 180 Tablet Refills: 1 Commonly known as: GLUCOPHAGE 1,000 mg, Oral, 2 TIMES DAILY oxyCODONE-acetaminophen 10-325 mg Tab Qty: 90 Tablet Refills: 0 Commonly known as: PERCOCET TAKE 1 TABLET BY MOUTH EVERY 8 HOURS NEEDED FOR CHRONIC PAIN tamsulosin 0.4 mg Cap Dose: 0.4 mg Refills: 0 Commonly known as: FLOMAX tiZANidine 4 mg Tab Qty: 90 Tablet Refills: 5 Commonly known as: ZANAFLEX TAKE 1 TABLET BY MOUTH THREE TIMES A DAY NEEDED FOR MUSCLE SPASM STOP taking these medications potassium chloride 10 mEq Tbsr Commonly known as: Klor-Con 10 ASK your doctor about these medications cetirizine 10 mg Tab Dose: 10 mg Qty: 30 Tablet Refills: 0 Commonly known as: ZyrTEC 10 mg, Oral, DAILY PRN cholecalciferol (vitamin D3) 25 mcg (1,000 unit) Tab Dose: 1 Tablet Refills: 0 rosuvastatin 10 mg Tab Dose: 10 mg Qty: 90 Tablet Refills: 1 Commonly known as: CRESTOR 10 mg, Oral, NIGHTLY triamcinolone 0.1 % Crea Qty: 80 g Refills: 2 Commonly known as: KENALOG Topical, 2 TIMES DAILY, Take a 2 week break after each 2 weeks of use. Where to Get Your Medications These medications were sent to [facility] [address] [place] [address] [place] [id number] Hours: Saturday-Saturday 8:00am - 6:30pm vancomycin 125 mg Cap Condition at Discharge: good Disposition: Home Follow-up: [facility] [place] [address] [place] [address] Viridiana Oropeza MD [id number] [facility] [id number] Follow up in 3 day(s) Hospital follow up Anil Thompson DO 07/26/2024 Total time spent discharging this patient > 30 minutes. This time includes review of patient's chart including lab values/imaging and nurse and specialists notes. More than half the time was spentin coordination of care and med reconciliation. documented in this encounter Discharge Instructions * Discharge Instructions* Anil Thompson DO - 07/26/2024 1:18 PM EDT Follow up with PCP within 3 days of discharge. Close follow up with infectious disease, ortho at documented in this encounter Medications at Time [...] weeks of use. 80 g 2 06/22/2024 vancomycin (VANCOCIN) 125 mg Oral Capsule Take 1 Capsule by mouth every 6 hours for 7 days. 28 Capsule 07/26/2024 3:31 PM EDT 07/26/2024 5 documented as of this encounter Ordered Prescriptions Prescription Sig Dispense Quantity Refills Last Filled Start Date End Date vancomycin (VANCOCIN) 125 mg Oral Capsule Take 1 Capsule by mouth every 6 hours for 7 days. 28 Capsule 07/26/2024 3:31 PM EDT 07/26/2024 5 documented in this encounter Discharge Disposition Disposition Code Departure Means Destination Comment s Home or Self Intermediate documented in this encounter Progress Notes * KinmanRoxi CPhT - 07/26/2024 3:50 PM EDT Discharge Medication Delivery Service DMD marine propulsion technician has delivered the following medications for Jnai Ingram: Rx#[id number]:VANCOMYCIN 125 MG CAPSULE-125 mg EVERY 6 HOURS SCHEDULED Date/Time of Delivery: 07/26/2024 3:50 PM Delivered to: handed to son in Please contact [employer] marine propulsion technician with any questions. Thanks! Roxi Randhwaa CPhT * Iva Mcqueen MSW - 07/26/2024 2:39 PM EDT 07/26/24 final note. Notified [facility] of dc. * Chapo Calvin MD - 07/26/2024 12:23 PM EDT SEP INFECTIOUS DISEASES ID Progress Note: Hospital Day: 6 Antibiotics: Daptomycin, Vancomycin Interval History and Subjective: No new complaints Diarrhea resolved Patient is afebrile No obvious vegetations seen on cardiac ECHO Physical Exam: BP 128/56 (BP Location: Left arm, Patient Position: Semi Fowlers) Pulse 81 Temp 97.6 ??F (36.4 ??C) (Oral) Resp 18 Ht 5' 9 (1.753 m) Wt 282 lb 13.6 oz (128.3 kg) SpO2 93% BMI 41.77 kg/m?? Temp (24hrs), Av.8 ??F (36.6 ??C), Min:97.6 ??F (36.4 ??C), Max:97.9 ??F (36.6 ??C) General: Alert awake and in NAD AT/NC Sclerae are anicteric Neck is supple Heart: RR no murmurs audible Lungs: Clear to auscultation anteriorly Abdomen: Soft, nontender, obese, positive bowel sounds Extremities: No clubbing, cyanosis, trace edema Skin: IV site without erythema Labs: Lab Results Component Value Date WBC 11.0 (H) 07/26/2024 HGB 9.6 (L) 07/26/2024 HCT 32.4 (L) 07/26/2024 MCV 92.6 07/26/2024 PLT 297 07/26/2024 Lab Results Component Value Date CREATININE 1.40 (H) 07/25/2024 BUN 13 07/25/2024 NA 141 07/25/2024 K 4.3 07/25/2024 CL 108 (H) 07/25/2024 CO2 23 07/25/2024 Lab Results Component Value Date ALT 6 07/23/2024 AST 10 07/23/2024 ALKPHOS 82 07/23/2024 Microbiology data reviewed Assessment / Plan: Bacteremia Staph xylosus isolated in one blood cx of two Possibly contaminant Patient remains afebrile throughout hospitalization, Repeat blood cx are negative so far Check cardiac ECHO, with no obvious vegetations Currently on IV Daptomycin, Vancomycin discontinued because of rising serum creatinine Stool studies +ve for C Diff toxin Pt is scheduled to be on po Vancomycin for a total of 10 days Had been on ocean transportation intermediary Amoxicillin for presmed hip infection earlier in June Renal failure Serum creatinine decreased to 1.4 now Will d/c Daptomycin after last dose today Vancomycin was discontinued H/o Right Hip Infection Recent history of prosthetic hip infection Patient completed course of IV Abx Was supposed to be on po Amoxicillin, but had to be discontinued because of issues with diarrhea Patient will need to follow up with orthopedics and ID service affiliated with in [place] to determine the need for senior living po abx regimen Leukocytosis Likely secondary to C Diff colitis WBC decreased to 11 today from 20 earlier during hospital course Disposition Will plan for discharge later this afternoon once he gets his Daptomycin d/c on po Vancomycin, [facility] Chapo Calvin MD 07/26/2024 * Anil Thompson DO - 07/26/2024 10:17 AM EDT PROGRESS NOTE Assessment/Plan: Diarrhea/C. Diff Colitis: -CT abdo/pelvis with new pancolitis which is possibly infectious but is overall nonspecific. Small volume ascites. Chronic L ureteral calculus and L renal atrophy -Recently completed course of IV abx 06/15/24; did not tolerate subsequent amoxicillin and taken off of this 06/27 -C. diff + and continued on po vancomycin -Diarrhea improving, less abdominal discomfort daily Gram Positive Bacteremia: -1/2 Bcx + Staph xylosus and suspect contaminant -Repeat Bcx NG at 72 hours -Continues on IV abx as noted above per ID -Echo reviewed - no vegetation noted on visualized portions. Follow up further ID recs. Leukocytosis: -Likely in setting of C diff colitis -WBC down trending 11 this AM -Afebrile on admission -UA with 2+ leuk esterase, neg nitrite, 13 WBC -CXR no acute finding -Bcx as noted above -Continues on IV abx per ID Hx R Hip infection: -KEEGAN 29 years ago -s/p revision arthroplasty 03/26 -s/p washout, debridement 05/02 with cultures + E. faecalis -s/p repeat debridement, complete implant removal, new implant placed 05/07 -Completed 6 week course of IV rocephin/ampicillin 06/15 -Initial plans were to continue oral amoxicllin 1g tid for three months, but did not tolerate -CT on admission with no acute findings -Evaluated by ID physician at 07/20 ZAC/CKD III: -Likely in setting of GI losses, dehydration -Improved with IVFs, Cr 1.40 most recent -Avoid nephrotoxic agents as able -Renal/bladder u/s with no evidence of active obstructive uropathy or other acute finding. 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 Monitor, adjust regimen as needed HTN: -BP stable 128/56 most recent -Not taking meds PROJECT CONTROLS SCHEDULER -Monitor Obesity: -Complicates all aspects of care D/w CC Dispo: Remains inpatient. VTE Prophylaxis: Qualifying Pharmacologic Prophylaxis enoxaparin (LOVENOX) injection 40 mg 2 TIMES DAILY Active Hospital Problems Diagnosis *ZAC (acute kidney injury) C. difficile colitis Colitis Diarrhea Stage 3 chronic kidney disease (HCC) Hypertension associated with diabetes (HCC) Obesity, Class III, BMI 40-49.9 (morbid obesity) Type 2 diabetes mellitus with hyperglycemia (HCC) Subjective: Patient resting comfortably in bed, no acute distress. Denies chest pain, dyspnea. Objective: BP 128/56 (BP Location: Left arm, Patient Position: Semi Fowlers) Pulse 81 Temp 97.6 ??F (36.4 ??C) (Oral) Resp 18 Ht 5' 9 (1.753 m) Wt 282 lb 13.6 oz (128.3 kg) SpO2 93% BMI 41.77 kg/m?? I/O last 3 completed shifts: In: 240 [P.O.:240] Out: 1675 [Urine:1675] Weight: 282 lb 13.6 oz (128.3 kg) Constitutional: Alert and oriented to person, place, and time. No distress. Obese. Cardiovascular: Normal rate and regular rhythm. Exam reveals no friction rub. No murmur heard. Pulmonary/Chest: Effort normal and breath sounds normal. No respiratory distress. There are no wheezes. Abdominal: Soft. Bowel sounds are normal. No distension. There is no tenderness. There is no rebound and no guarding. Musculoskeletal: No edema. Neurological: Grossly normal. Skin: Skin is warm and dry. No erythema. Labs: Laboratory data and diagnostic testing reviewed 07/26/24. Anil Thompson DO 07/26/2024 10:17 AM * Tanya Goodman RN - 07/26/2024 7:26 AM EDT Prn percocet and morphine for pain No c/o nausea Continues in contact precaution Pt denies having bowel movement PO antibiotic given Up with assist Voiding via urinal overnight Bed alarm in use Call light within reach * Francoise Uriostegui RN - 07/25/2024 7:36 PM EDT VSS. x1 standby assist in room and august. PRN pain meds given. IV NSL. Echo today. Safety precautions in place. * Anli Thompson DO - 07/25/2024 1:06 PM EDT PROGRESS NOTE Assessment/Plan: Diarrhea/C. Diff Colitis: -CT abdo/pelvis with new pancolitis which is possibly infectious but is overall nonspecific. Small volume ascites. Chronic L ureteral calculus and L renal atrophy -Recently completed course of IV abx 06/15/24; did not tolerate subsequent amoxicillin and taken off of this 06/27 -C. diff + and continued on po vancomycin -07/25: Diarrhea improving, less abdominal discomfort Gram Positive Bacteremia: -1/2 Bcx + Staph xylosus and suspect contaminant -Repeat Bcx NG at 24 hours -Continues on IV abx as noted above per ID -Echo ordered Leukocytosis: -Likely in setting of C diff colitis -WBC down trending 12.1 this AM -Afebrile on admission -UA with 2+ leuk esterase, neg nitrite, 13 WBC -CXR no acute finding -Bcx as noted above -Continues on IV abx per ID Hx R Hip infection: -KEEGAN 29 years ago -s/p revision arthroplasty 03/26 -s/p washout, debridement 05/02 with cultures + E. faecalis -s/p repeat debridement, complete implant removal, new implant placed 05/07 -Completed 6 week course of IV rocephin/ampicillin 06/15 -Initial plans were to continue oral amoxicllin 1g id for three months, but did not tolerate -CT on admission with no acute findings -Evaluated by ID physician at 07/20 ZAC/CKD III: -Likely in setting of GI losses, dehydration -Improved with IVFs, Cr 1.40 this AM -Avoid nephrotoxic agents as able -Renal/bladder u/s with no evidence of active obstructive uropathy or other acute finding. 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 Monitor, adjust regimen as needed HTN: -BP stable 119/63 most recent -Not taking meds PROJECT CONTROLS SCHEDULER -Monitor Obesity: -Complicates all aspects of care In communication with Dr. Calvin Dispo: Remains inpatient. Pending echo. VTE Prophylaxis: Qualifying Pharmacologic Prophylaxis enoxaparin (LOVENOX) injection 40 mg 2 TIMES DAILY Active Hospital Problems Diagnosis *ZAC (acute kidney injury) C. difficile colitis Colitis Diarrhea Stage 3 chronic kidney disease (HCC) Hypertension associated with diabetes (HCC) Obesity, Class III, BMI 40-49.9 (morbid obesity) Type 2 diabetes mellitus with hyperglycemia (HCC) Subjective: Patient sitting up in bed, no acute distress. Denies chest pain, dyspnea. Abdominal discomfort, diarrhea improving. Objective: BP 119/63 (BP Location: Left arm, Patient Position: Semi Fowlers) Pulse 73 Temp 97.5 ??F (36.4 ??C) (Oral) Resp 16 Ht 5' 9 (1.753 m) Wt 282 lb 13.6 oz (128.3 kg) SpO2 94% BMI 41.77 kg/m?? I/O last 3 completed shifts: In: 240 [P.O.:240] Out: 1375 [Urine:1375] Weight: 282 lb 13.6 oz (128.3 kg) Constitutional: Alert and oriented to person, place, and time. No distress. Obese. Cardiovascular: Normal rate and regular rhythm. Exam reveals no friction rub. No murmur heard. Pulmonary/Chest: Effort normal and breath sounds normal. No respiratory distress. There are no wheezes. Abdominal: Soft. Bowel sounds are normal. No distension. There is no tenderness. There is no rebound and no guarding. Musculoskeletal: No edema. Neurological: Grossly normal. Skin: Skin is warm and dry. No erythema. Labs: Laboratory data and diagnostic testing reviewed 07/25/24. Anil Thompson DO 07/25/2024 1:06 PM * Chapo Calvin MD - 07/25/2024 1:01 PM EDT SEP INFECTIOUS DISEASES ID Progress Note: Hospital Day: 5 Antibiotics: po Vancomycin and IV Daptomycin Interval History and Subjective: No new complaints Patient is afebrile Cardiac ECHO not done despite being ordered 2 days ago Physical Exam: BP 119/63 (BP Location: Left arm, Patient Position: Semi Fowlers) Pulse 73 Temp 97.5 ??F (36.4 ??C) (Oral) Resp 16 Ht 5' 9 (1.753 m) Wt 282 lb 13.6 oz (128.3 kg) SpO2 94% BMI 41.77 kg/m?? Temp (24hrs), Av.9 ??F (36.6 ??C), Min:97.5 ??F (36.4 ??C), Max:98.3 ??F (36.8 ??C) General: Awake and in NAD AT/NC Sclerae are anicteric Neck is supple Heart: RR no murmurs audible Lungs: Clear to auscultation anteriorly Abdomen: Soft, nontender, obese, positive bowel sounds Extremities: No clubbing, cyanosis, trace edema, right hip wound healed well Skin: IV site without erythema Labs: Lab Results Component Value Date WBC 12.1 (H) 07/25/2024 HGB 9.8 (L) 07/25/2024 HCT 32.1 (L) 07/25/2024 MCV 91.5 07/25/2024 PLT 270 07/25/2024 Lab Results Component Value Date CREATININE 1.40 (H) 07/25/2024 BUN 13 07/25/2024 NA 141 07/25/2024 K 4.3 07/25/2024 CL 108 (H) 07/25/2024 CO2 23 07/25/2024 Lab Results Component Value Date ALT 6 07/23/2024 AST 10 07/23/2024 ALKPHOS 82 07/23/2024 Microbiology data reviewed Assessment / Plan: Bacteremia Staph xylosus isolated in one blood cx of two Repeat blood cx pending are negative so far Unclear source Check cardiac ECHO, ordered 2 days ago, but not done yet Currently on IV Daptomycin, Vancomycin discontinued because of rising serum creatinine Stool studies +ve for C Diff toxin pt is scheduled to be on po Vancomycin x 10 days Had been on ocean transportation intermediary Amoxicillin for presmed hip infection earlier in June Renal failure Serum creatinine decreased to 1.4 now Vancomycin was discontinued H/o Right Hip Infection Recent history of prosthetic hip infection Patient completed course of IV Abx Was supposed to be on po Amoxicillin, but had to be discontinued because of issues with diarrhea Patient will need to follow up with orthopedics and ID service affiliated with in [place] Leukocytosis Likely secondary to C Diff colitis WBC decreased to 12 today from 20 earlier during hospital course Disposition Discharge planning early next week ECHO still pending Chapo Calvin MD 07/25/2024 * Nenita Hernandez, DAVID - 07/25/2024 6:20 AM EDT Pt VSS, ambulating w/standby assist, walked in hallway 2x this shift, no BM this shift, voiding using urinal, PRN pain meds and TUMS given w/some relief, Order obtained to alternate PRN pain meds, Oral ABX given, Encouraged offloading heels. Safety precautions in place. * Francoise Uriostegui RN - 07/24/2024 4:19 PM EDT VSS. x1 standby assist in room and august. Pain managed with PRN meds. IV NSL. Safety precautions in place. * Anil Thompson DO - 07/24/2024 2:54 PM EDT PROGRESS NOTE Assessment/Plan: Diarrhea/C. Diff Colitis: -CT abdo/pelvis with new pancolitis which is possibly infectious but is overall nonspecific. Small volume ascites. Chronic L ureteral calculus and L renal atrophy -Recently completed course of IV abx 06/15/24; did not tolerate subsequent amoxicillin and taken off of this 06/27 -C. diff + and continued on po vancomycin -07/24: Diarrhea improving, less abdominal discomfort Gram Positive Bacteremia: -1/2 Bcx + Staph xylosus and suspect contaminant -Repeat Bcx NG at 24 hours -Continues on IV abx as noted above per ID -Echo ordered Leukocytosis: -Likely in setting of C diff colitis -WBC down trending 07/24 -Afebrile on admission -UA with 2+ leuk esterase, neg nitrite, 13 WBC -CXR no acute finding -Bcx as noted above -Continues on IV abx per ID Hx R Hip infection: -KEEGAN 29 years ago -s/p revision arthroplasty 03/26 -s/p washout, debridement 05/02 with cultures + E. faecalis -s/p repeat debridement, complete implant removal, new implant placed 05/07 -Completed 6 week course of IV rocephin/ampicillin 06/15 -Initial plans were to continue oral amoxicllin 1g id for three months, but did not tolerate -CT on admission with no acute findings -Evaluated by ID physician at 07/20 ZAC/CKD III: -Likely in setting of GI losses, dehydration -Improved with IVFs, Cr 1.44 this AM -Avoid nephrotoxic agents as able -Renal/bladder u/s ordered DM, type II: -Hold PROJECT CONTROLS SCHEDULER metformin -A1c 6.4 05/05 -BG stable, at goal 07/24 -SSI. Monitor, adjust regimen as needed HTN: -BP stable 142/69 most recent -Not taking meds PROJECT CONTROLS SCHEDULER -Monitor Obesity: -Complicates all aspects of care D/w RN, admission discharge rn, CC Dispo: Remains inpatient. VTE Prophylaxis: Qualifying Pharmacologic Prophylaxis enoxaparin (LOVENOX) injection 40 mg 2 TIMES DAILY Active Hospital Problems Diagnosis *ZAC (acute kidney injury) C. difficile colitis Colitis Diarrhea Stage 3 chronic kidney disease (HCC) Hypertension associated with diabetes (HCC) Obesity, Class III, BMI 40-49.9 (morbid obesity) Type 2 diabetes mellitus with hyperglycemia (HCC) Subjective: Patient resting comfortably in bed, no acute distress. Denies chest pain, dyspnea. Feeling better, diarrhea less. Abdominal discomfort better. Objective: BP 142/69 (BP Location: Left arm, Patient Position: Semi Fowlers) Pulse 73 Temp 97.7 ??F (36.5 ??C) (Oral) Resp 16 Ht 5' 9 (1.753 m) Wt 282 lb 13.6 oz (128.3 kg) SpO2 94% BMI 41.77 kg/m?? I/O last 3 completed shifts: In: 910.6 [P.O.:840; I.V.:20.7; IV Piggyback:49.9] Out: 1125 [Urine:1125] Weight: 282 lb 13.6 oz (128.3 kg) Constitutional: Alert and oriented to person, place, and time. No distress. Obese. Cardiovascular: Normal rate and regular rhythm. Exam reveals no friction rub. No murmur heard. Pulmonary/Chest: Effort normal and breath sounds normal. No respiratory distress. There are no wheezes. Abdominal: Soft. Bowel sounds are normal. No distension. There is mild tenderness. There is no rebound and no guarding. Musculoskeletal: +edema. Neurological: Grossly normal. Skin: Skin is warm and dry. No erythema. Labs: Laboratory data and diagnostic testing reviewed 07/24/24. Anil Thompson DO 07/24/2024 2:54 PM * Chapo Calvin MD - 07/24/2024 12:09 PM EDT SEP Infectious Diseases Progress Note Date of Admission: 07/21/2024 Primary Care Physician: Viridiana Oropeza MD Hospital Day: 3 Antibiotics: PO Vancomycin, IV daptomycin Interval History and Subjective: No new complaints Diarrhea improved Afebrile Allergies Allergen Reactions Empagliflozin Hives Hives, bad dreams Hives, bad dreams Hives, bad dreams Patient Vitals for the past 24 hrs: BP Temp Temp src Pulse Resp SpO2 07/24/24 1113 -- -- -- 78 -- -- 07/24/24 0916 142/69 97.7 ??F (36.5 ??C) Oral 80 16 94 % 07/24/24 0527 -- -- -- 68 -- -- 07/24/24 0430 132/67 98 ??F (36.7 ??C) -- 70 16 95 % 07/24/24 0312 -- -- -- 68 -- -- 07/24/24 0109 -- -- -- 75 -- -- 07/23/24 2311 -- -- -- 77 -- -- 07/23/24 2000 137/71 98.2 ??F (36.8 ??C) Oral 84 16 96 % 07/23/24 1722 -- -- -- 90 -- -- 07/23/24 1512 -- -- -- 85 -- -- Weight: 282 lb 13.6 oz (128.3 kg) Physical Exam: General: Awake and in NAD AT/NC Sclerae are anicteric Neck is supple Heart: RR no murmurs audible Lungs: Clear to auscultation anteriorly, Abdomen: Soft, nontender, obese, positive bowel sounds Extremities: No clubbing, cyanosis, +ve edema lower extremities Skin: IV site without erythema Medications Prior to Admission Medication Sig Dispense Refill Last Dose/Taking famotidine (PEPCID) 20 mg Oral Tablet Take 1 Tablet by mouth daily as needed for Other (allergic rash). 30 Tablet 0 Taking metFORMIN (GLUCOPHAGE) 1,000 mg Oral Tablet Take 1 Tablet by mouth 2 times daily. 180 Tablet 1 Taking oxyCODONE-acetaminophen (PERCOCET) 10-325 mg Oral Tablet TAKE 1 TABLET BY MOUTH EVERY 8 HOURS NEEDED FOR CHRONIC PAIN 90 Tablet 0 Taking tiZANidine (ZANAFLEX) 4 mg Oral Tablet TAKE 1 TABLET BY MOUTH THREE TIMES A DAY NEEDED FOR MUSCLE SPASM 90 Tablet 5 Taking acetaminophen 325 mg Oral Tab Take 650 mg by mouth every 8 hours. Blood Sugar Diagnostic Misc Strip Check BS bid 50 Each 11 Blood-Glucose Meter Misc Kit Check BS bid 1 Kit 0 cetirizine (ZYRTEC) 10 mg Oral Tablet Take 1 Tablet by mouth daily as needed for Allergies. (Patient not taking: Reported on 07/21/2024) 30 Tablet 0 Not Taking cholecalciferol, vitamin D3, 25 mcg (1,000 unit) Oral Tablet Take 1 Tab by mouth daily. (Patient not taking: Reported on 07/21/2024) Not Taking hydroCHLOROthiazide 25 mg Oral Tablet Take 1 Tablet by mouth daily. (Patient not taking: Reported on 07/21/2024) 30 Tablet 0 Not Taking Lancets Misc Misc Check BS bid 50 Each 11 lisinopriL (PRINIVIL;ZESTRIL) 2.5 mg Oral Tablet Take 1 Tablet by mouth daily. (Patient not taking:Reported on 07/21/2024) 90 Tablet 1 Not Taking potassium chloride (KLOR-CON 10) 10 mEq Oral Tablet Sustained Release Take 1 Tablet by mouth daily.(Patient not taking: Reported on 07/21/2024) 7 Tablet 0 Not Taking rosuvastatin (CRESTOR) 10 mg Oral Tablet Take 1 Tablet by mouth nightly. (Patient not taking: Reported on 07/21/2024) 90 Tablet 1 Not Taking tamsulosin (FLOMAX) 0.4 mg Oral Capsule 0.4 mg daily. triamcinolone (KENALOG) 0.1 % Top Cream Apply topically 2 times daily. Take a 2 week break after each 2 weeks of use. (Patient not taking: Reported on 07/21/2024) 80 g 2 Not Taking Current Facility-Administered Medications Medication Dose Route Frequency Provider Last Rate Last Admin calcium carbonate (TUMS) chewable tablet 500-1,000 mg 500-1,000 mg Oral Q4H PRN Anil Thompson DO 500 mg at 07/24/24 1136 DAPTOmycin (CUBICIN) injection 750 mg 6 mg/kg Intravenous Daily Chapo Calvin MD 750 mg at 07/24/24 0918 dextrose 50 % solution 25 mL 25 mL Intravenous PRN Victoria Gutiérrez APRN enoxaparin (LOVENOX) injection 40 mg 40 mg Subcutaneous BID Anil Thompson DO 40 mg at 918 glucagon (GLUCAGEN) injection 1 mg 1 mg Intramuscular PRN Victoria Gutiérrez APRN And sterile water injection 1 mL 1 mL Injection PRN Victoria Gutiérrez APRN insulin aspart U-100 (NovoLOG) injection 1-5 Units 1-5 Units Subcutaneous QID AC & HS Anil Thompson DO morphine injection 2-4 mg 2-4 mg Intravenous Q4H PRN Anil Thompson DO 2 mg at 07/24/24 0917 oxyCODONE-acetaminophen (PERCOCET) 10-325 mg per tablet 1 Tablet 1 Tablet Oral Q6H PRN Peggy Rosa APRN 1 Tablet at 07/24/24 0014 pantoprazole (PROTONIX) tablet 40 mg 40 mg Oral Daily Anil Thompson DO 40 mg at 07/24/24 0918 sodium chloride 0.9% IV line flush 20-50 mL 20-50 mL Intravenous PRN Anil Thompson DO Stopped at 07/23/24 1038 sodium chloride 0.9% syringe Intravenous 2 times per day Victoria Gutiérrez APRN 10 mL at 07/24/24 0918 sodium chloride 0.9% syringe Intravenous PRN Anil Thompson DO 10 mL at 07/24/24 0441 tiZANidine (ZANAFLEX) tablet 4 mg 4 mg Oral Q8H PRN Peggy Rosa APRN 4 mg at 07/22/24 0345 vancomycin (VANCOCIN) capsule 125 mg 125 mg Oral 4 times per day Chapo Calvin MD 125 mg at 07/24/24 0548 Immunization History Administered Date(s) Administered Influenza High Dose 01/06/2024 Influenza Virus Vaccine Quadrivalant, Flublok 11/04/2017, 01/21/2020 Gracie SARS-CoV-2 Vaccine 04/22/2020, 12/20/2020 Moderna SARS-CoV-2 Booster Vaccine 18+ Yrs (Light Blue Border) 08/17/2021 Pfizer SARS-CoV-2 Vaccine Nabil-sucrose 12+ Yrs 03/27/2023 Pneumococcal Conjugate Vaccine 13 Valent 11/04/2017 Pneumococcal Polysaccharide 23 Valent 02/21/2022 Quadrivalent Influenza High Dose 02/21/2022, 03/27/2023 Tdap 08/25/2014 Labs: Lab Results Component Value Date WBC 12.6 (H) 07/24/2024 HGB 9.7 (L) 07/24/2024 HCT 32.3 (L) 07/24/2024 MCV 90.7 07/24/2024 PLT 261 07/24/2024 Lab Results Component Value Date GLU 95 07/24/2024 NA 140 07/24/2024 K 4.0 07/24/2024 CO2 19 (L) 07/24/2024 CL 110 (H) 07/24/2024 BUN 15 07/24/2024 CREATININE 1.44 (H) 07/24/2024 Results for orders placed or performed during the hospital encounter of 07/21/24 (from the past 2 weeks) BLOOD CULTURE (NO STAIN) Collection Time: 07/21/24 4:58 PM Specimen: Blood, Venous Result Value Ref Range Culture Result Positive Growth (Cr) Culture Result Growth of Staphylococcus xylosus BLOOD CULTURE (NO STAIN) Collection Time: 07/21/24 4:58 PM Specimen: Blood, Venous Result Value Ref Range Culture Result No Growth at 48 hours. BLOOD CULTURE RAGHAV GRAM POS Collection Time: 07/21/24 4:58 PM Specimen: Blood, Venous Result Value Ref Range BACILLUS CEREUS GROUP Not Detected Not Detected BACILLUS SUBTILIS GROUP Not Detected Not Detected CORYNEBACTERIUM SPECIES Not Detected Not Detected ENTEROCOCCUS SPECIES Not Detected Not Detected ENTEROCOCCUS FAECALIS Not Detected Not Detected ENTEROCOCCUS FAECIUM Not Detected Not Detected LACTOBACILLUS SPECIES Not Detected Not Detected LISTERIA SPECIES Not Detected Not Detected LISTERIA MONOCYTOGENES Not Detected Not Detected MICROCOCCUS SPECIES Not Detected Not Detected CUTIBACTERIUM ACNES (PROPIONIBACTERIUM ACNES) Not Detected Not Detected STAPHYLOCOCCUS SPECIES Detected (Cr) Not Detected STAPHYLOCOCCUS AUREUS Not Detected Not Detected STAPHYLOCOCCUS EPIDERMIDIS Not Detected Not Detected STAPHYLOCOCCUS LUGDUNENSIS Not Detected Not Detected STREPTOCOCCUS SPECIES Not Detected Not Detected STREPTOCOCCUS AGALACTIAE (GROUP B) Not Detected Not Detected STREPTOCOCCUS ANGINOSUS GROUP Not Detected Not Detected STREPTOCOCCUS PNEUMONIAE Not Detected Not Detected STREPTOCOCCUS PYOGENES (GROUP A) Not Detected Not Detected mecA Not Detected. Methicillin Resistance due to other mechanisms cannot be excluded. mecC Not Detected. Methicillin Resistance due to other mechanisms cannot be excluded. URINE CULTURE (NO STAIN) Collection Time: 07/21/24 6:04 PM Specimen: Urine, Clean Catch Result Value Ref Range Culture Multiple bacterial species isolated from urine consistent with urogenital commensal organisms. STOOL CULTURE (NO STAIN) Collection Time: 07/22/24 12:04 PM Specimen: Rectum; Stool Result Value Ref Range Culture No growth of enteric pathogens, including Salmonella, Shigella, Campylobacter, Vibrio, Yersinia, Aeromonas, Plesiomonas, or E. coli O157. SHIGA TOXIN Collection Time: 07/22/24 12:04 PM Specimen: Rectum; Stool Result Value Ref Range Shiga Toxin Shiga toxins (produced by E. coli) not detected. Shiga toxins (produced by E. coli) notdetected. OVA AND PARASITE BASIC Collection Time: 07/22/24 12:04 PM Specimen: Rectum; Stool Result Value Ref Range Giardia Lamblia Antigen Not Detected Not detected Cryptosporidium Exam Not Detected Not Detected C DIFF INTERPRETATION Collection Time: 07/22/24 12:04 PM Specimen: Rectum; Stool Result Value Ref Range C Diff Toxin DNA Positive (A) Negative NAP1 Presumptive Neg Presumptive Neg GDH Antigen Positive (A) Negative C diff toxin A/B Positive (A) Negative BLOOD CULTURE (NO STAIN) Collection Time: 07/23/24 8:10 AM Specimen: Blood, Venous Result Value Ref Range Culture Result No Growth at 24 hours. BLOOD CULTURE (NO STAIN) Collection Time: 07/23/24 8:10 AM Specimen: Blood, Venous Result Value Ref Range Culture Result No Growth at 24 hours. Lab Results Component Value Date SEDRATE 39 (H) 07/23/2024 Lab Results Component Value Date CRP 94.55 (H) 07/23/2024 No results found. ESR at 39, CRP at 99 Microbiology data reviewed Assessment / Plan: Staph xylosus Bacteremia 07/21: Blood cultures 1 of 2 (peripheral): Staphylococcus xylosus 07/23: repeat blood cx: NG @ 24 hrs Unclear source Check cardiac ECHO- ordered yesterday, not done yet IV Daptomycin started yesterday Vancomycin was discontinued because of rising serum creatinine Stool studies +ve for C Diff toxin pt is on po Vancomycin x 10 days Had been on ocean transportation intermediary Amoxicillin for presmed hip infection earlier in June Renal failure Serum creatinine decreased to 1.44 Vancomycin discontinued H/o Right Hip Infection Recent history of prosthetic hip infection Patient completed course of IV Abx Was supposed to be on po Amoxicillin, but it had to be discontinued because of issues with diarrhea Patient will need to follow up with orthopedics and ID service affiliated with in [place] Leukocytosis Likely secondary to C Diff colitis WBC continues to improve 20.0---> 12.6 ----- Infectious Disease Disposition Perspective - Medically Ready for Discharge: No Anticipated discharge timeframe: 1-2 days Discharge if / when?: Once blood cultures have been negative for 48 hrs, ECHO completed Pt was evaluated in collaboration with Noa Srinivasan APRN a member of the Infectious Disease provider team. All labs, cultures and imaging studies were reviewed and a plan of care was discussed. At the end all of the documentation was reviewed by me & signed Chapo Calvin MD 07/24/2024 * Aviva Mcguire MSW - 07/24/2024 10:40 AM EDT 07/24 SW Final Note: Note pt identified as a potential d/c this weekend during morning MDM. Note pt is alert and oriented X4. SW met with pt at bedside and completed d/c round. Pt states his d/c plan is home with family support, [facility], and outpatient follow up with physicians. Pt states he will have all the help and support he needs for home. Pt states understanding of all d/c medications, care needs, and follow up appointments. Pt states his son Chance will transport and he feels safe doing so. Pt states he will notify his son Chance of d/c and states no need for SW to call family/friends. Pt states no d/c needs or preferences. SW spoke to Dennis with [facility] and notified. HH orders in [facility]. No other d/c needs identified. SW/CC available should needs arise. * Nenita Hernandez RN - 07/24/2024 6:00 AM EDT Pt VSS, A/O x4, Pt having loose BMs, using urinal, PRN pain meds given 3x w/some relief, TUMS [id number] w/some relief, IV replaced, encouraged turns, [id number] on importance, ambulating w/walker and standby assist. Safety precautions in place. * Kellen Garrido RN - 07/23/2024 8:16 PM EDT Patient alert and oriented Ambulates x1 standby assist PRN utilized for pain relief reported Patient having loose Bms, voiding per urinal IV NSL Encouraging turns Patient ambulated in august with staff Nonskid footwear in place Call light and belongings within reach Bed alarm in use * Chapo Calvin MD - 07/23/2024 7:29 PM EDT SEP INFECTIOUS DISEASES ID Progress Note: Hospital Day: 3 Antibiotics: po Vancomycin, Zosyn Interval History and Subjective: overall feels better, diarrhea improved No issues with hip pain Afebrile Physical Exam: BP 145/67 (BP Location: Right arm, Patient Position: Semi Fowlers) Pulse 90 Temp 97.6 ??F (36.4??C) (Oral) Resp 16 Ht 5' 9 (1.753 m) Wt 282 lb 13.6 oz (128.3 kg) SpO2 97% BMI 41.77 kg/m?? Temp (24hrs), Av ??F (36.7 ??C), Min:97.6 ??F (36.4 ??C), Max:98.5 ??F (36.9 ??C) General: Awake and in NAD AT/NC Sclerae are anicteric Neck is supple Heart: RR no murmurs audible Lungs: Clear to auscultation anteriorly, Abdomen: Soft, nontender, obese, positive bowel sounds Extremities: No clubbing, cyanosis, +ve edema lower extremities Skin: IV site without erythema Labs: Lab Results Component Value Date WBC 16.6 (H) 07/23/2024 HGB 9.9 (L) 07/23/2024 HCT 33.6 (L) 07/23/2024 MCV 93.1 07/23/2024 PLT 256 07/23/2024 Lab Results Component Value Date CREATININE 1.67 (H) 07/23/2024 BUN 18 07/23/2024 NA 138 07/23/2024 K 4.3 07/23/2024 CL 109 (H) 07/23/2024 CO2 20 (L) 07/23/2024 Lab Results Component Value Date ALT 6 07/23/2024 AST 10 07/23/2024 ALKPHOS 82 07/23/2024 ESR at 39, CRP at 99 Microbiology data reviewed Assessment / Plan: Bacteremia Gram +ve cocci isolated in one blood cx of two repeat blood cx pending Unclear source Check cardiac ECHO Start IV Daptomycin, Vancomycin discontinued because of rising serum creatinine yesterday Stool studies +ve for C Diff toxin pt is on po Vancomycin x 10 days Had been on ocean transportation intermediary Amoxicillin for presmed hip infection earlier in June Renal failure Serum creatinine decreased to 1.67 Vancomycin discontinued H/o Right Hip Infection Recent history of prosthetic hip infection Patient completed course of IV Abx Was supposed to be on po Amoxicillin, but had to be discontinued because of issues with diarrhea Patient will need to follow up with orthopedics and ID service affiliated with in [place] Leukocytosis Likely secondary to C Diff colitis WBC decreased to 16today from 20 Chapo Calvin MD 07/23/2024 * Anil Thompson DO - 07/23/2024 1:18 PM EDT PROGRESS NOTE Assessment/Plan: Diarrhea/C. Diff Colitis: -CT abdo/pelvis with new pancolitis which is possibly infectious but is overall nonspecific. Small volume ascites. Chronic L ureteral calculus and L renal atrophy -Recently completed course of IV abx 06/15/24; did not tolerate subsequent amoxicillin and taken off of this 06/27 -C. diff + and continued on po vancomycin Gram Positive Bacteremia: -1/2 Bcx + Staph xylosus and suspect contaminant -Continues on IV abx as noted above per ID -Repeat cultures obtained, follow Leukocytosis: -Likely in setting of C diff colitis -WBC down trending 07/23 -Afebrile on admission -UA with 2+ leuk esterase, neg nitrite, 13 WBC -CXR no acute finding -Bcx as noted above -Continues on IV abx per ID Hx R Hip infection: -KEEGAN 29 years ago -s/p revision arthroplasty 03/26 -s/p washout, debridement 05/02 with cultures + E. 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 Monitor, adjust regimen as needed HTN: -BP stable 145/67 most recent -Not taking meds PROJECT CONTROLS SCHEDULER -Monitor Obesity: -Complicates all aspects of care D/w RN, admission discharge rn, CC Dispo: Remains inpatient. VTE Prophylaxis: Qualifying Pharmacologic Prophylaxis enoxaparin (LOVENOX) injection 40 mg 2 TIMES DAILY Active Hospital Problems Diagnosis *ZAC (acute kidney injury) Colitis Diarrhea Stage 3 chronic kidney disease (HCC) Hypertension associated with diabetes (HCC) Obesity, Class III, BMI 40-49.9 (morbid obesity) Type 2 diabetes mellitus with hyperglycemia (HCC) Subjective: Patient resting comfortably in bed this morning, no acute distress. Feeling better overall. Objective: BP 145/67 (BP Location: Right arm, Patient Position: Semi Fowlers) Pulse 92 Temp 97.6 ??F (36.4??C) (Oral) Resp 16 Ht 5' 9 (1.753 m) Wt 282 lb 13.6 oz (128.3 kg) SpO2 97% BMI 41.77 kg/m?? I/O last 3 completed shifts: In: 2882.3 [P.O.:600; I.V.:1660; IV Piggyback:622.4] Out: 1075 [Urine:1075] Weight: 282 lb 13.6 oz (128.3 kg) Constitutional: Alert and oriented to person, place, and time. No distress. Obese. Cardiovascular: Normal rate and regular rhythm. Exam reveals no friction rub. No murmur heard. Pulmonary/Chest: Effort normal and breath sounds normal. No respiratory distress. There are no wheezes. Abdominal: Soft. Bowel sounds are normal. No distension. There is no tenderness. There is no rebound and no guarding. Musculoskeletal: No edema. Neurological: Grossly normal. Skin: Skin is warm and dry. No erythema. Labs: Laboratory data and diagnostic testing reviewed 07/23/24. Anil Thompson DO 07/23/2024 1:18 PM * Nenita Hernandez, DAVID - 07/23/2024 5:41 AM EDT Pt VSS, PRN pain med given for abd pain 3x w/some relief, TUMS given for stomach discomfort w/some relief, ABX infused-interrupted when pt accidentally pulled out IV-new IV placed, Pt urinating frequently over night-Urinal, safety precautions in place. * Mariah Beasley PharmD - 07/22/2024 8:10 PM EDT Pharmacy Note: Renal Dose Adjustment Per pharmacy collaborative care agreement, renally dose adjusted enoxaparin therapy to 40 mg SQ twice daily, as patient's CrCl >30 mL/min, BMI >40 kg/m2. Thanks! Mariah Beasley PharmD * Mariah Beasley PharmD - 07/22/2024 6:39 PM EDT Patient: Jani Ingram , : 1955 07/22/2024 Test: Per [employer] Gram-Positive Nucleic Acid blood culture test, patient is reported to have Staphylococcus spp. with with no mecA, Marilynn, or vanB resistance markers in their blood in 1/2 cultures. Time test reported to pharmacy: 1829 Lab Caller / Pharmacy Plate Sensitizer: Mariah Nicolas / Rosalind Montero Action Taken: Time: 1833 Called to: Dr. Calvin Patient is currently receiving piperacillin/tazobactam antibiotics, pt did receive vancomycin todaywhich would cover this bacterium. DOC for this regimen is cefazolin, with vancomycin as an alternative. Thank you, Tavia AlfaroD * Stella Gordon RN - 07/22/2024 1:41 PM EDT VSS. Pt c/o abd pain meds as ordered. Pt NPO this am started on diet mid morning. Pt ambulates in room . Pt voids per urinal. Pt +BM my shift, specimens sent. IV atb's as ordered. * Aviva Mcguire, CELL LEAD - 07/22/2024 10:52 AM EDT 07/22/24 1051 Discharge Planning Evaluation Completed by CC/SW Yes Referral Source Chart review Who you interviewed In person interview with patient Mental Status Alert and oriented Decision Maker Patient Who does pt identify as their caregiver/support person who will be their active partner in the dc planning process Pt reports no caregiver/support person for dc planning process Does patient need interpreter and translator? No Activities of Daily Living Prior to Admission Independent with ADLS;Independent with Homemaking;Independent with mobility DME Used at Home Cane;Walker (Pt states 2-wheel walker is his primary mobility DME) Walker type 2 wheel Patient's Living Arrangments Prior to Admission? Private Residence With Other(s) Private Residence With Other(s) Children Support Systems Children;Home Care Is PCP listed on facesheet correct? Yes Quality of Support System Good Follow Up Assigned To: Referral to Social work not necessary Social Work already completing dc planning assessment Anticipated post-acute care needs Home with Home Care Discussed discharge plans with Patient/Family/Caregiver/Support Person Yes, Discussed with patient Discussed discharge plans with Care Team at [facility] Yes, with nurse in attendance;Yes, with doctor in attendance Patient's goals for recovery Return to Prior Level of Functioning Repisodic List provided N/A - Resumption care. Patient active with post acute partner prior to admission Actual Discharge Plan 07/22 LORENE Initial Assessment: chart reviewed. Note pt is alert and oriented X4.LORENE met with pt at bedside and introduced self and role. Pt states he lives with his 26yr old son Kimo in a trailer with a ramp to get inside and no steps inside to get to the bedroom/bathroom. Pt states no housing or safety concerns. Pt states his PCP is Dr. Viridiana Oropeza. [facility]. Pt states he can afford all his medications, food, transportation, utilities, and other bills. Pt states he was independent with ADL???s prior to admission. Pt states he has a cane and a bariatric 2-wheel walker (primary DME) at home he was using prior to admission. Pt states he was active with HH prior to admission (does not remember the agency name) and wishes to resume services at d/c. Per Chart Review, pt active with [facility]. Resumption referral sent. Awaiting response. Pt states he normally transports via his son Chance. Pt states he will transport via his son Chance at d/c. Pt states no d/c planning support person as he wishes to update family and friends himself. SDOH screen completed. Pt states no other d/c needs at this time. SW following. * Ellie Alvarez, PharmD - 07/22/2024 10:28 AM EDT Pharmacy Consult: Vancomycin S: Jani Ingram is a 68 y.o. male with a h/o prosthetic joint infection (Enterococcus faecalis) and new pancolitis. Patient sent to our ED by Infectious Diseases at due to elevated WBC and CRP. He recently completed ceftriaxone and ampicillin ~3 weeks ago for a R hip infection; plan was to transition to amoxicillin for 3 months but patient did not tolerate. Allergies: Empagliflozin. Day 2 of pharmacy managed vancomycin therapy. Infectious Diseases service has been consulted. Antimicrobial Summary: - Vancomycin (07/21 - ) - Piperacillin-tazobactam (07/21 - ) O: Most Recent Labs: Temp Min: 97.4 ??F (36.3 ??C) Max: 98.1 ??F (36.7 ??C) Recent Labs 07/21/24 1601 07/22/24 0445 WBC 18.4* 20.0* BUN 32* 27* CREATININE 2.08* 1.78* Estimated Creatinine Clearance: 40.3 mL/min (A) (by C-G formula based on SCr of 1.78 mg/dL (H)). Recent Labs 07/22/24 0445 VANCORANDOM 14.6 Recent Labs 07/21/24 1742 PROCLCTNIN 0.50* Recent Labs 07/21/24 1742 LACTA 1.2 Recent Labs 07/21/24 1742 CRP 77.53* I/O last 3 completed shifts: In: 2059.9 [I.V.:425.1; IV Piggyback:1634.8] Out: 500 [Urine:500] I/O this shift: In: 389.2 [I.V.:382.7; IV Piggyback:6.6] Out: - Height: 5' 9 (175.3 cm) Weight: 282 lb 13.6 oz (128.3 kg) Imagin/[address]: IMPRESSION: 1. Satisfactory alignment of the right hip arthroplasty. No convincing CT evidence of loosening or joint effusion. 2. Chronic stress shielding/stress fracture at the lateral cortex of the femoral diaphysis, similarto the July 2023 study without evidence of progression. 07/21 CT Abdomen Pelvis: IMPRESSION: New pancolitis which is possibly infectious but is overall nonspecific. Small volume ascites. Chronic left ureteral calculus and left renal atrophy. Culture & Sensitivities: 07/21 Blood Cx x 2: In process 07/21 Procalcitonin: 0.5 ng/mL A/P: - Physician orders and progress notes reviewed. - Renal function is poor, patient admitted in ZAC. - WBC is elevated. - Vancomycin random level was 14.6 mcg/mL this am (~10 hours after a 2000 mg IV loading dose). - Will continue current therapy with vancomycin intermittent dosing. - Vancomycin 2000 mg IV x 1 ordered for this am. - Vancomycin random concentration to be drawn tomorrow 07/23 with am labs for goal random concentration >15 mcg/mL. - Other labs: BMP daily x 3. Pharmacy will continue to follow patient for changes in renal function, efficacy, and signs of toxicity. ID consult noted. Pharmacy to continue to manage antibiotics until ID physician sees patient, then will defer to their expertise. Thank you, Ellie Alvarez, PharmD * Tanya Taylor RN - 07/22/2024 4:27 AM EDT Resting quietly in bed. VSS. Afebrile. IVF infusing without incidence. Medicated with prn pain medswith some relief. Up with assistance. Bed alarm on. Call davison within reach. Plan of care reviewed. * Carie Bryant PharmD - 07/21/2024 5:19 PM EDT Images from the original note were not included. Pharmacy Consult: Vancomycin S: Jani Ingram is a(n) 68 y.o. male with a h/o prosthetic joint infection (enterococcus faecalis). Allergies: Empagliflozin Pharmacy consulted to manage vancomycin therapy. Other antimicrobials include: piperacillin/tazobactam. O: Most Recent Labs: Temp Min: 97.9 ??F (36.6 ??C) Max: 97.9 ??F (36.6 ??C) Recent Labs 07/21/24 1601 WBC 18.4* BUN 32* CREATININE 2.08* No intake/output data recorded. No intake/output data recorded. Height: 5' 9 (175.3 cm) Weight: 279 lb 0.3 oz (126.6 kg) Culture & Sensitivities: No results found for this visit on 07/21/24 (from the past 2 weeks). Imaging: CT ABDOMEN PELVIS WO ORAL OR IV CONTRAST (Results Pending) CT LOWER EXTREMITY RIGHT WO CONTRAST (Results Pending) XR CHEST AP PORTABLE (Results Pending) A/P: Physician orders and progress notes reviewed. Patient???s renal function is poor, patient here for ZAC. Will initiate vancomycin therapy [id number] mg then intermittent/pulse dosing. Will draw vancomycin random level tomorrow with AM labs. Goal: random concentration >15 mcg/mL. Patient has also been started on piperacillin/tazobactam 3.375 gm IVPB x 1 dose, then piperacillin/tazobactam IV every 8 hours. Pharmacy will follow patient for changes in renal function, efficacy, and signs of toxicity. Thank you! Carie Bryant PharmD, BCPS, BCCCP documented in this encounter H&P Notes * Anil Thompson DO - 07/22/2024 10:39 AM EDT [facility] History and Physical Name: Jani Ingram : 1955 AGE: 68 y.o. PCP: Viridiana Oropeza MD Admitting Physician: Anil Thompson DO Date of Admit: 07/21/2024 Chief Complaint: Chief Complaint Patient presents with Abnormal Lab high wbc, referred due to possible hip infection after replacement History of Present Illness: Mr. 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 He reports that he has had worsening abdominal pain and diarrhea over the past several days. Endorses about two episodes of diarrhea/day. Non-bloody. No fevers, chills. No N/V. Recently completed course of IV abx for his hip infection with plans for a subsequent 3 months of amoxicillin. Dueto an allergic reaction, he has been off these antibiotics since evaluation in the ED 06/27. Instructed to present to the ED d/t abnormal labs obtained from infectious disease physician, as well as wor sening diarrhea. Reports no acute issues with his hip. Past Medical History: Diagnosis Date Arthritis Hyperlipidemia [...] 6.9. NIDDM on meds times 6 months Past Surgical History: Procedure Laterality Date CIRCUMCISION N/A 03/15/2017 CIRCUMCISION; Surgeon: Jameson Rodriguez MD; Location: [facility] MAIN OR; Service: Urology COLONOSCOPY COLONOSCOPY N/A 06/16/2015 COLONOSCOPY ; Surgeon: Pankaj Chavez MD; Location: [facility] ENDOSCOPY; Service: Endoscopy HIP SURGERY Bilateral 1995 nasima hip repacements IR 2 LEVEL BILATERAL MEDIAL BRANCH BLOCK LUM SAC 02/18/2020 IR 2 LEVEL BILATERAL MEDIAL BRANCH BLOCK LUM SAC 02/18/2020 [facility] IMAGING SHOULDER ARTHROSCOPY Right 08/28/2016 RIGHT SHOULDER ARTHROSCOPIC ROTATOR CUFF REPAIR, DECOMPRESSION ACROMIOPLASTY ACROMIOCLAVICULAR JOINT EXCISION; Surgeon: Robbi Alvarez MD; Location: [facility] OR; Service: Orthopedics SHOULDER SURGERY Medications Prior to Admission Medication Sig famotidine (PEPCID) 20 mg Oral Tablet Take 1 Tablet by mouth daily as needed for Other (allergic rash). metFORMIN (GLUCOPHAGE) 1,000 mg Oral Tablet Take 1 Tablet by mouth 2 times daily. oxyCODONE-acetaminophen (PERCOCET) 10-325 mg Oral Tablet TAKE 1 TABLET BY MOUTH EVERY 8 HOURS NEEDED FOR CHRONIC PAIN tiZANidine (ZANAFLEX) 4 mg Oral Tablet TAKE 1 TABLET BY MOUTH THREE TIMES A DAY NEEDED FOR MUSCLE SPASM acetaminophen 325 mg Oral Tab Take 650 mg by mouth every 8 hours. Blood Sugar Diagnostic Misc Strip Check BS bid Blood-Glucose Meter Misc Kit Check BS bid cetirizine (ZYRTEC) 10 mg Oral Tablet Take 1 Tablet by mouth daily as needed for Allergies. (Patient not taking: Reported on 07/21/2024) cholecalciferol, vitamin D3, 25 mcg (1,000 unit) Oral Tablet Take 1 Tab by mouth daily. (Patient not taking: Reported on 07/21/2024) hydroCHLOROthiazide 25 mg Oral Tablet Take 1 Tablet by mouth daily. (Patient not taking: Reported on 07/21/2024) Lancets [facility] Misc Check BS bid lisinopriL (PRINIVIL;ZESTRIL) 2.5 mg Oral Tablet Take 1 Tablet by mouth daily. (Patient not taking:Reported on 07/21/2024) potassium chloride (KLOR-CON 10) 10 mEq Oral Tablet Sustained Release Take 1 Tablet by mouth daily.(Patient not taking: Reported on 07/21/2024) rosuvastatin (CRESTOR) 10 mg Oral Tablet Take 1 Tablet by mouth nightly. (Patient not taking: Reported on 07/21/2024) tamsulosin (FLOMAX) 0.4 mg Oral Capsule 0.4 mg daily. triamcinolone (KENALOG) 0.1 % Top Cream Apply topically 2 times daily. Take a 2 week break after each 2 weeks of use. 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 Tobacco Use Smoking status: Never Passive exposure: Never Smokeless tobacco: Never Vaping Use Vaping status: Never Used Substance and Sexual Activity Alcohol use: No Drug use: No Sexual activity: Not Currently Social History Narrative Lives with son Social Drivers of Health Financial Resource Strain: Low Risk (07/22/2024) Overall Financial Resource Strain (CARDIA) Difficulty of Paying Living Expenses: Not hard at all Food Insecurity: No Food Insecurity (07/22/2024) Hunger Vital Sign Worried About Running Out of Food in the Last Year: Never true Ran Out of Food in the Last Year: Never true Transportation Needs: No Transportation Needs (07/22/2024) [facility] IP Transportation In the past 12 months, has lack of reliable transportation kept you from medical appointments, meetings, work or from getting things needed for daily living?: No Physical Activity: Inactive (07/22/2024) Exercise Vital Sign Days of Exercise per Week: 0 days Minutes of Exercise per Session: 0 min Stress: No Stress Concern Present (07/22/2024) [employer] [place] [employer] - Occupational Stress Questionnaire Feeling of Stress : Not at all Social Connections: Patient Unable To Answer (05/04/2024) Received from [facility] Social Connection and Isolation Panel [NHANES] Frequency of Communication with Friends and Family: Patient unable to answer Frequency of Social Gatherings with Friends and Family: Patient unable to answer Attends Spiritism Services: Patient unable to answer Active Member of Clubs or Organizations: Patient unable to answer Attends Club or Organization Meetings: Patient unable to answer Marital Status: Patient unable to answer Intimate Partner Violence: Not At Risk (05/04/2024) Received from [facility] Humiliation, Afraid, Rape, and Kick questionnaire Fear of Current or Ex-Partner: No Emotionally Abused: No Physically Abused: No Sexually Abused: No Housing Stability: Low Risk (05/04/2024) Received from [facility] Housing Stability Vital Sign Unable to Pay for Housing in the Last Year: No Number of Times Moved in the Last Year: 1 Homeless in the Last Year: No Family History Problem Relation Age of Onset Diabetes Father Anesth Problems Neg Hx Review of Systems: The listed systems were reviewed and reveal the following in addition to any already discussed in the HPI: Constitutional: No fever, chills, or weight loss Eyes: No visual disturbance HEENT: No headache, hearing loss, epistaxis, sore throat, or hoarseness Lungs: No SOB, cough, hemoptysis, or pleuritic chest pain Cardiovascular: No chest pain, PND, orthopnea, ROCK Endocrine: No polyuria, polydypsia, or polyphagia GI: + abdominal pain, no nausea, vomiting, hematemesis, +diarrhea, no constipation, melena, hematochezia, or bright red blood per rectum : No dysuria, frequency, hesitancy, or hematuria Musculoskeletal: No myalgias or muscle weakness Neurologic: No focal numbness or weakness Skin: No edema, jaundice, or skin discoloration Psychiatric: No depression, anxiety Hematologic/Allergic: No history of bleeding or easy bruising, no clots OBJECTIVE: Physical Exam: Vitals: 07/22/24 0818 BP: 146/67 Pulse: 79 Resp: 18 Temp: 98.1 ??F (36.7 ??C) SpO2: 94% Weight: 282 lb 13.6 oz (128.3 kg) Constitutional: Well developed, adequently nourished, no acute distress, non- toxic appearance; obese Eyes: PERRL, conjunctiva normal, sclera clear HEENT: Atraumatic,mouth moist, no thrush Neck- normal range of motion, no tenderness, supple no LA TM JVD Respiratory: No respiratory distress, normal breath sounds, no rales, no wheezing Cardiovascular: Normal rate, normal rhythm, no murmurs, no gallops, no rubs GI: Soft, distended, + bowel sounds, diffuse abdominal tenderness; no mass, no rebound, no guarding :not examined Musculoskeletal: No edema, no tenderness, no deformities. Integument: Adequatly hydrated, no rash Lymphatic: No lymphadenopathy noted Neurologic: Alert & oriented x 3, moving all 4 limbs equally no gross focal deficits noted Psychiatric: Speech and behavior appropriate Labs: CBC: Lab Results Component Value Date WBC 20.0 (H) 07/22/2024 RBC 3.48 (L) 07/22/2024 HGB 9.5 (L) 07/22/2024 HCT 31.6 (L) 07/22/2024 MCV 90.8 07/22/2024 MCHC 30.1 (L) 07/22/2024 RDW 15.6 (H) 07/22/2024 MPV 9.9 07/22/2024 BMP: Lab Results Component Value Date NA 136 07/22/2024 K 4.4 07/22/2024 CL 107 07/22/2024 CO2 18 (L) 07/22/2024 BUN 27 (H) 07/22/2024 CREATININE 1.78 (H) 07/22/2024 CALCIUM 8.4 (L) 07/22/2024 GLU 113 (H) 07/22/2024 Hepatic: Lab Results Component Value Date ALKPHOS 96 07/21/2024 ALT 8 07/21/2024 AST 11 07/21/2024 PROT 6.6 07/21/2024 LABBILI <0.2 (L) 07/21/2024 No results found for: AMYLASE , LIPASE U/A: Lab Results Component Value Date SPECGRAV 1.029 07/21/2024 UAPROTEIN 1+ (30-70 mg/dL) (A) 07/21/2024 BLOODU Negative 07/21/2024 NITRITE Negative 07/21/2024 LEUKOCYTESUR 2+ (75 Zora/mcl) (A) 07/21/2024 WBCUA 13 (H) 07/21/2024 RBCUA 2 07/21/2024 Coagulation: No results found for: PT , INR , APTT Cardiac markers: No results found for: CKMB , MYOGLOBIN ABGs:No results found for: PH , PCO2 , PO2 , HCO3 , TCO2 , BASEEXCESS , O2SAT , INSPIREDO2 , SPECIMENTYPE Radiology: CT LOWER EXTREMITY RIGHT WO CONTRAST Result Date: 07/22/2024 CT LOWER EXTREMITY RIGHT WO CONTRAST, 07/21/2024 5:27 PM CLINICAL HISTORY: -s/p R KEEGAN, c/b infection, c/f recurrence COMPARISON: 07/31/2023. PROCEDURE COMMENTS: Multidetector CT with multiplanar reconstructions per ordered protocol. Dose 1 : CT DLP Total : 4500.55 mGycm DLP Spiral Max : 2257.93 mGycmMaximum CTDI Vol : 29.24 mGy FINDINGS: There is localized cortical thickening along the lateral cortex of the proximal femoral diaphysis with subtle cortical break in this location similar to the previous study and indicative of a chronic stress fracture. There is no evidence of progression. This is best seen on coronal image 63. The right hip prosthesis is otherwise satisfactory in alignment. No convincing evidence of osteolysis or other evidence of loosening of the prosthesis. Evaluation for joint effusion is somewhat limited by metallic streak artifact. No obvious joint effusion visible. There is chronic lobulated, partially calcified density along the lateral margin of the proximal femoral prosthesis which was seen on the previous examination measuring approximately 8.5 x 2.1 x 6.2 cm. There is mild thickening/scarring noted along the surgical incision. No definitive organized fluidcollection. 1. Satisfactory alignment of the right hip arthroplasty. No convincing CT evidence of loosening or joint effusion. 2. Chronic stress shielding/stress fracture at the lateral cortex of the femoral diaphysis, similar to the July 2023 study without evidence of progression. - Note: Radiology results need to be interpreted within a comprehensive clinical context. If you have questions about the radiology report, please contact the office of the ordering clinician. XR CHEST AP PORTABLE Result Date: 07/21/2024 XR CHEST AP PORTABLE, 07/21/2024 5:33 PM CLINICAL HISTORY: -sepsis workup COMPARISON: X-ray 06/18/2024PROCEDURE COMMENTS: AP portable technique. FINDINGS: Support devices: No visible support devices. Enlarged cardiomediastinal silhouette. Hypoinflated lungs. No active failure, pneumonia, or visible ef fusion. No visible pneumothorax. No acute finding. - Note: Radiology results need to be interpreted within a comprehensive clinical context. If you have questions about the radiology report, please contact the office of the orderingclinician. CT ABDOMEN PELVIS WO ORAL OR IV CONTRAST Result Date: 07/21/2024 CT ABDOMEN AND PELVIS WITHOUT IV OR ORAL CONTRAST, 07/21/2024 5:27 PM CLINICAL HISTORY: -RLQ abdominal pain, leukocytosis. COMPARISON: CT 05/01/2024 PROCEDURE COMMENTS: Multidetector CT examination of the abdomen and pelvis without IV or oral contrast per protocol. Multiplanar reconstructions. Dose 1: CT DLP Total : 4500.55 mGycm DLP Spiral Max : 2257.93 mGycm Maximum CTDI Vol : 29.24 mGy FINDINGS: LOWER THORAX: Right lower lobe atelectasis. ABDOMEN AND PELVIS: Throughout the entire colon, thereis circumferential colonic wall thickening with surrounding inflammatory changes. These findings are most apparent in the cecum where the associated inflammatory changes surrounding the appendix which is otherwise nondilated. No convincing intramural pneumatosis. No focal fluid collection. Small volume ascites, particularly perihepatic. Liver, spleen, pancreas, and adrenal glands unremarkable. Suspect cholelithiasis, but without acute cholecystitis. Unchanged 8 mm calculus in the distal left ureter without upstream hydronephrosis, however there is chronic asymmetric left renal atrophy. No right hydronephrosis. Pericolonic inflammation but otherwise limited evaluation of the pelvic contents secondary streak artifact from the bilateral hip arthroplasties. Right hip/thigh findings are betterdescribed on the dedicated CT lower extremity. New pancolitis which is possibly infectious but is overall nonspecific. Small volume ascites. Chronic left ureteral calculus and left renal atrophy. - Note: Radiology results need to be interpreted within a comprehensive clinical context. If you have questions about the radiology report, please contact the office of the ordering clinician. Results for orders placed during the hospital encounter of 08/28/23 EK EKG [address] 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 Active Hospital Problems Diagnosis *ZAC (acute kidney injury) Colitis Diarrhea Stage 3 chronic kidney disease (HCC) Hypertension associated with diabetes (HCC) Obesity, Class III, BMI 40-49.9 (morbid obesity) Type 2 diabetes mellitus with hyperglycemia (HCC) Admission Assessment and Plan: Diarrhea/Pancolitis: -CT abdo/pelvis with new pancolitis which is possibly infectious but is overall nonspecific. Small volume ascites. Chronic L ureteral calculus and L renal atrophy -Recently completed course of IV abx 06/15/24; did not tolerate subsequent amoxicillin and taken off of this 06/27 -Stool studies, C diff ordered -Initiated on vanc/zosyn on admission -> can likely discontinue vanc but will await ID eval Leukocytosis: -Likely in setting of above -Afebrile on admission -UA with 2+ leuk esterase, neg nitrite, 13 WBC -CXR no acute finding -Bcx obtained in ED - following -Continues on IV abx as noted above - de-escalate as cultures result. Hx R Hip infection: -KEEGAN 29 years ago -s/p revision arthroplasty 03/26 -s/p washout, debridement 05/02 with cultures + E. 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 Relevant information was discovered and affected the care of the patient. documented in this encounter Consult Notes * Chapo Calvin MD - 07/22/2024 12:23 PM EDT DATE OF CONSULTATION: 07/22/2024 HISTORY OF PRESENT ILLNESS: The patient is a 68-year-old gentleman with multiple medical issues whowas admitted through the emergency room for evaluation of worsening abdominal pain associated with diarrhea over the past several days. Apparently, he had been on amoxicillin p.o. after completing a course of IV antibiotics for a right hip-related infection. He developed hives and was seen in the emergency room at [facility] on 06/27, the amoxicillin was discontinued. He now has a white count of 20 with an elevated C-reactive protein at 77 and sedimentation rate is also elevated. Infectious disease service has been consulted for further antibiotic management. He states that he is walking now using a walker and there is no drainage, erythema, swelling on his right hip wound. He states that he has diarrhea every time he eats fro the last several weeks. He has been started on vancomycin and Zosyn currently. He denies any nausea, emesis, chest pain, fevers or chills. PAST MEDICAL HISTORY: Notable for arthritis, hyperlipidemia, iron-deficiency anemia, obesity, sepsis, diabetes mellitus, hip replacement surgery followed by infection, treated by infectious disease service at [facility] in [place]. History of circumcision, colonoscopy, shoulder arthroscopy, shoulder surgery. ALLERGIES: INCLUDE: EMPAGLIFLOZIN. MEDICATIONS: Current medication list was reviewed and includes the following antibiotics: Vancomycin. Zosyn. FAMILY HISTORY: Notable for diabetes. SOCIAL HISTORY: Negative for tobacco use. No history of use of smokeless products. No history of current alcohol or illicit drug use. REVIEW OF SYSTEMS: Please see history of present illness. PHYSICAL EXAM: GENERAL: Morbidly obese gentleman, lying in bed, does not appear in acute distress. VITAL SIGNS: Reviewed. He is currently afebrile. HEENT: Head and neck exam: Atraumatic, normocephalic. Oropharynx clear. Neck: Supple. LUNGS: Chest clear to auscultation anteriorly. CARDIOVASCULAR: Reveals regular rate and rhythm. ABDOMEN: Obese, soft, nontender. EXTREMITIES: Lower extremities with trace edema over the right hip area. There is no swelling, erythema or drainage noted. A well-healed scar is observed. LABORATORY DATA: C-reactive protein is at 77. Sodium 136, potassium 4.4, chloride 107, bicarbonate 18, blood glucose 113, BUN 27, creatinine 1.7. WBC is 20, yesterday it was 18, hemoglobin 9.5, hematocrit 31, platelets are at 266. Sedimentation rate is at 58. IMAGING STUDIES: Abdomen CT shows pancolitis, likely infectious in origin, with small-volume ascites, left ureteral calculus, left renal atrophy, satisfactory alignment of right hip arthroplasty. No convincing CT evidence of loosening or joint effusion. MEDICAL DECISION MAKING: Asked to see Jani Tien for antibiotic management for presumed hip infection as well as a likely C. difficile-associated diarrhea. CT scan of the abdomen suggests pancolitis and WBC is elevated. Stool studies for C. difficile toxin are pending. The patient does report diarrhea several times a day. The patient is receiving vancomycin and Zosyn. The patient has some elemen t of renal insufficiency, therefore we could consider discontinuing the vancomycin. The infectious disease service at [facility] had suggested amoxicillin for 3 months; however, the patient has not been able to tolerate that and has had side effects with a presumed allergy. We will need to stop the amoxicillin. If any antibiotic is necessary for suppression ofinfection, we could consider a short course of p.o. linezolid, if at all. At this time, it would beimportant to address the issue of colitis secondary to po antibioics. I did discuss the case with the hospitalist distribution specialist, Dr. Thompson. I will follow the patient along with you and I appreciate the opportunity to see your patient. Chapo Calvin M.D. By: Brandon Job ID: [id number] Doc ID: [id number] documented in this encounter ED Notes * Cat Jules MD - 07/21/2024 3:24 PM EDT Chief Complaint Patient presents with Abnormal Lab high wbc, referred due to possible hip infection after replacement Jani Ingram is a 68 y.o. male presenting with abnormal lab. Patient was sent to our emergency department by infectious disease at . He had follow-up appointment with him yesterday. Outpatient labs were drawn and notable for new leukocytosis to 21 as well asmarkedly elevated CRP. Patient reports lack of appetite, feeling achey all over. Going on for past couple of weeks, not improving but denies that it is worsening. No fevers or chills. No vomiting. No passing out or feelinglightheaded. +loose stool, 1-2 episodes daily. He denies any pain in the right hip. He denies any redness, warmth, or drainage from the incision. He reports his mobility has been increasing/improving, getting around with a walker. Reviewed recent records, including documentation from infectious disease. Has been off antibiotics for approximately 3+ weeks. Previously completed course of ceftriaxone and ampicillin. Plan to complete 3-month course of amoxicillin but patient had a suspected allergic reaction. See ED course belowfor additional details. Patient History Allergies Allergen Reactions Empagliflozin Hives Hives, bad dreams Hives, bad dreams Hives, bad dreams Home Medications: Prior to Admission medications Medication Sig Start Date End Date Last Dose Authorizing Provider famotidine (PEPCID) 20 mg Oral Tablet Take 1 Tablet by mouth daily as needed for Other (allergic rash). 06/27/24 Taking Mango Carvajal MD metFORMIN (GLUCOPHAGE) 1,000 mg Oral Tablet Take 1 Tablet by mouth 2 times daily. 05/27/24 Taking Viridiana Oropeza MD oxyCODONE-acetaminophen (PERCOCET) 10-325 mg Oral Tablet TAKE 1 TABLET BY MOUTH EVERY 8 HOURS NEEDED FOR CHRONIC PAIN 07/07/24 Taking Viridiana Oropeza MD tiZANidine (ZANAFLEX) 4 mg Oral Tablet TAKE 1 TABLET BY MOUTH THREE TIMES A DAY NEEDED FOR MUSCLE SPASM 06/08/24 Taking Viridiana Oropeza MD acetaminophen 325 mg Oral Tab Take 650 mg by mouth every 8 hours. 04/01/24 Provider, Historical Blood Sugar Diagnostic Misc Strip Check BS bid 04/02/24 Viridiana Oropeza MD Blood-Glucose Meter Misc Kit Check BS bid 04/02/24 Viridiana Oropeza MD cetirizine (ZYRTEC) 10 mg Oral Tablet Take 1 Tablet by mouth daily as needed for Allergies. Patient not taking: Reported on 07/21/2024 06/27/24 Not Taking Mango Carvajal MD cholecalciferol, vitamin D3, 25 mcg (1,000 unit) Oral Tablet Take 1 Tab by mouth daily. Patient not taking: Reported on 07/21/2024 Not Taking Provider, Historical hydroCHLOROthiazide 25 mg Oral Tablet Take 1 Tablet by mouth daily. Patient not taking: Reported on 07/21/2024 06/03/24 Not Taking Viridiana Oropeza MD Lancets [facility] Misc Check BS bid 04/02/24 Viridiana Oropeza MD lisinopriL (PRINIVIL;ZESTRIL) 2.5 mg Oral Tablet Take 1 Tablet by mouth daily. Patient not taking: Reported on 07/21/2024 06/08/24 Not Taking Viridiana Oropeza MD potassium chloride (KLOR-CON 10) 10 mEq Oral Tablet Sustained Release Take 1 Tablet by mouth daily. Patient not taking: Reported on 07/21/2024 06/18/24 Not Taking Adenike Edmond APRN rosuvastatin (CRESTOR) 10 mg Oral Tablet Take 1 Tablet by mouth nightly. Patient not taking: Reported on 07/21/2024 06/08/24 Not Taking Viridiana Oropeza MD tamsulosin (FLOMAX) 0.4 mg Oral Capsule 0.4 mg daily. 06/17/24 Provider, Historical triamcinolone (KENALOG) 0.1 % Top Cream Apply topically 2 times daily. Take a 2 week break after each 2 weeks of use. Patient not taking: Reported on 07/21/2024 06/22/24 Not Taking Viridiana Oropeza MD Past Medical History: Past [...] 03/15/2017 CIRCUMCISION; Surgeon: Jameson Rodriguez MD; Location: [facility] MAIN OR; Service: Urology COLONOSCOPY COLONOSCOPY N/A 06/16/2015 COLONOSCOPY ; Surgeon: Pankaj Chavez MD; Location: [facility] ENDOSCOPY; Service: Endoscopy HIP SURGERY Bilateral 1995 nasima hip repacements IR 2 LEVEL BILATERAL MEDIAL BRANCH BLOCK LUM SAC 02/18/2020 IR 2 LEVEL BILATERAL MEDIAL BRANCH BLOCK LUM SAC 02/18/2020 [facility] SHOULDER ARTHROSCOPY Right 08/28/2016 RIGHT SHOULDER ARTHROSCOPIC ROTATOR CUFF REPAIR, DECOMPRESSION ACROMIOPLASTY ACROMIOCLAVICULAR JOINT EXCISION; Surgeon: Robbi Alvarez MD; Location: [facility] MAIN OR; Service: Orthopedics SHOULDER SURGERY Review of Systems See HPI Physical Exam Blood pressure 147/63, pulse 87, temperature 97.4 ??F (36.3 ??C), temperature source Oral, resp. rate 18, height 5' 9 (1.753 m), weight 282 lb 13.6 oz (128.3 kg), SpO2 96%. Physical Exam Constitutional: General: He is not in acute distress. Comments: Resting on stretcher HENT: Head: Normocephalic and atraumatic. Mouth/Throat: Mouth: Mucous membranes are moist. Pharynx: Oropharynx is clear. Eyes: Extraocular Movements: Extraocular movements intact. Cardiovascular: Rate and Rhythm: Normal rate and regular rhythm. Pulses: Normal pulses. Pulmonary: Effort: Pulmonary effort is normal. Breath sounds: Normal breath sounds. Comments: Lungs are clear to auscultation throughout. Abdominal: General: There is distension. Palpations: Abdomen is soft. Tenderness: There is abdominal tenderness (mild TTP throughout, worse in the RLQ, no rebound or guarding). Skin: General: Skin is warm and dry. Capillary Refill: Capillary refill takes less than 2 seconds. Comments: Healing surgical incisions over R posterolateral hip. Nontender. No erythema, warmth, induration, dehiscence or purulence. Neurological: General: No focal deficit present. Mental Status: He is alert and oriented to person, place, and time. Procedures Radiology/EKG/Labs: Appropriate laboratory and radiology studies reviewed ED Course as of 07/21/24 2353 Jorge ACat's Documentation SatJul 21, 2024 1639 Creatinine, Ser(!): 2.08 baseline near 1; will proceed with noncontrasted CT scans 1642 first KEEGAN 03/26/2024, revision a couple of days later 1647 WBC(!): 18.4 1655 +SIRS - leukocytosis and tachycardia [address] Forte (ID with ) from 07/20/2024 Jani Ingram is a 68 y.o. 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 I saw him last on 06/15/24. He underwent a right KEEGAN 29 yrs ago and then had revision arthroplasty on 03/26/24 at for mechanical failure. He was reportedly doing well but developed pain and difficulty ambulating in April. He went to [facility] for evaluation. They performed a CT scan that demonstrated a [id number] cm rim enhancing fluid collection involving the hip prosthesis. He was transferred to [facility] to the OR on 05/02/24 for washout [...] with a plan tocontinue for 3 months. - Amox discontinued early due to allergy. Patient has not been on abx for 3+ weeks. 174 CT Abdomen Pelvis without oral or IV Contrast IMPRESSION: New pancolitis which is possibly infectious but is overall nonspecific. Small volume ascites. Chronic left ureteral calculus and left renal atrophy. 181 XR CHEST AP PORTABLE IMPRESSION: No acute finding. 1823 UA W/ Reflex to Culture(!) Mild evidence of infection, 2+ LE, 13 WBCs, but also contaminated, sending for culture 1848 Procalcitonin(!): 0.50 1848 CRP(!): 77.53 ED Clinical Impression: 1. ZAC (acute kidney injury) 2. Pancolitis (HCC) Critical Care time n/a MDM Medical Decision Making Problems Addressed: ZAC (acute kidney injury): chronic illness or injury Pancolitis (HCC): chronic illness or injury Amount and/or Complexity of Data Reviewed Labs: ordered. Decision-making details documented in ED Course. Radiology: ordered. Decision-making details documented in ED Course. Risk Prescription drug management. Decision regarding hospitalization. Patient is a 68-year-old male with history of right KEEGAN requiring revision complicated by infection(E faecalis) requiring prolonged course of IV antibiotics, managed at presenting with abnormal lab. On exam he is alert, no acute distress. Afebrile, vitals reassuring, mild tachycardia noted on arrival that resolved spontaneously. Exam reassuring, including no evidence of skin infection at right KEEGAN site. Mild abdominal tenderness without peritoneal signs. Will proceed with broad workup, including sepsis labs, CT of the abdomen as well as the right lowerextremity. Discussed case with pharmacy, is meeting SIRS criteria given leukocytosis and tachycardia, vanc and zosyn ordered. See ED course above for other notable findings. These include possible UTI. Elevated Pro-Car and CRP without lactic acidosis. There is also an ZAC. IVFs given. No evidence of severe sepsis or septic shock. CT abdomen pelvis with new pancolitis and small volume ascites. CT lower extremity without final read as there is no [facility] radiologist available for review at this time , however I did discuss with Dr Thakkar of of radiology who reviewed images in a limited capacity and reports that abscess seen on prior in April has nearly resolved. Initial plan for transfer to given his prior care (including ortho and ID) was there, however, at this time, I have low clinical suspicion that prosthetic infection is etiology of patient's infectious labs changes. I do not feel patient requires transfer. I did discuss this with patient, he would like to avoid transfer if possible. Will proceed with admission here. He is agreeable. Discussed with benzene washer operator HUMPHREY (DEREK Isidro), who accepted patient to Dr. Thompson's service for further infection management and culture maturation. Patient also remains pending CT lower extremity final read. Condition at Discharge/Transfer from Department: Stable This chart was completed using voice recognition technology and may contain unintended errors Cat Jules MD 07/21/24 [id number] documented in this encounter Miscellaneous Notes * Utilization Review Notes - Kaila Almaraz RN - 07/23/2024 2:32 PM EDT Inpatient 07/23/2024. Observation 07/21/2024. Cont stay, Med Surg Monitored. Per Hospitalist note today: Assessment/Plan: Diarrhea/C. Diff Colitis: -CT abdo/pelvis with new pancolitis which is possibly infectious but is overall nonspecific. Small volume ascites. Chronic L ureteral calculus and L renal atrophy -Recently completed course of IV abx 06/15/24; did not tolerate subsequent amoxicillin and taken off of this 06/27 -C. diff + and continued on po vancomycin Gram Positive Bacteremia: -1 Bcx + Staph xylosus and suspect contaminant -Continues on IV abx as noted above per ID -Repeat cultures obtained, follow Leukocytosis: -Likely in setting of C diff colitis -WBC down trending 07/23 -Afebrile on admission -UA with 2+ leuk esterase, neg nitrite, 13 WBC -CXR no acute finding -Bcx as noted above -Continues on IV abx per ID Hx R Hip infection: -KEEGAN 29 years ago -s/p revision arthroplasty 03/26 -s/p washout, debridement 05/02 with cultures + E. 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 Monitor, adjust regimen as needed HTN: -BP stable 145/67 most recent -Not taking meds PROJECT CONTROLS SCHEDULER -Monitor Obesity: -Complicates all aspects of care D/w RN, admission discharge rn, CC Dispo: Remains inpatient. VTE Prophylaxis: Qualifying Pharmacologic Prophylaxis enoxaparin (LOVENOX) injection 40 mg 2 TIMES DAILY . * Utilization Review Notes - Kaila Almaraz RN - 07/23/2024 9:25 AM EDT Inpatient 07/23/2024. Observation 07/21/2024. Cont stay, Med Surg Monitored. Zosyn IV 3 times per day. Per Infectious Disease MD note 07/22/2024: MEDICAL DECISION MAKING: Asked to see Jani Ingram for antibiotic management for presumed hip infection as well as a likely C. difficile-associated diarrhea. CT scan of the abdomen suggests pancolitis and WBC is elevated. Stool studies for C. difficile toxin are pending. The patient does report diarrhea several times a day. The patient is receiving vancomycin and Zosyn. The patient has some element of renal insufficiency, therefore we could consider discontinuing the vancomycin. The infectious disease service at [facility] had suggested amoxicillin for 3 months; however, the patient has not been able to tolerate that and has had side effects with a presumed allergy. We will need to stop the amoxicillin. If any antibiotic is necessary for suppression ofinfection, we could consider a short course of p.o. linezolid, if at all. At this time, it would beimportant to address the issue of colitis secondary to po antibioics. I did discuss the case with the hospitalist distribution specialist, Dr. Thompson. I will follow the patient along with you and I appreciate the opportunity to see your patient . * Critical Result Value - Fabian Espinoza RN - 07/22/2024 4:21 PM EDT Jani Ingram [id number], 1955 07/22/2024 Test Name/Result: Blood Cultures/Gram + Cocci Time: 162 Caller/Plate Sensitizer: Sharee Mariee/Fabian Marcial RN R/V Action Taken: Communicated with provider via Secure Chat Time: 1624 Notified Physician/Physician Designee: Dr. Thompson * Utilization Review Notes - Korina Etienne RN - 07/22/2024 1:57 PM EDT SITE LEASING AGENT 07/22/2024 Pt was admitted as observation 07/21* . observation order on chart. Admitted to Telemetry/ MED SURGUnit for ZAC (acute kidney injury) LABS: WBC: 20, Hgb 9.5, Cr: 2.08, CrP:77.53 Blood Cultures Pending U CX Pending Stool Sample Pending MEDS: NS Infusion, Morphine x 1 Zosyn IVPB x 5 Vancomycin IVPB x 1, Daily TESTS: CT Abdomen: IMPRESSION: New pancolitis which is possibly infectious but is overall nonspecific. Small volume ascites. Chronic left ureteral calculus and left renal atrophy. ORDERS: NPO, CT Lower Extremity Right Pending US Renal and Bladder Pending ID Consult NOTES: Per Hospitalist Note 07/22/2024: Admission Assessment and Plan: Diarrhea/Pancolitis: -CT abdo/pelvis with new pancolitis which is possibly infectious but is overall nonspecific. Small volume ascites. Chronic L ureteral calculus and L renal atrophy -Recently completed course of IV abx 06/15/24; did not tolerate subsequent amoxicillin and taken off of this 06/27 -Stool studies, C diff ordered -Initiated on vanc/zosyn on admission -> can likely discontinue vanc but will await ID eval Leukocytosis: -Likely in setting of above -Afebrile on admission -UA with 2+ leuk esterase, neg nitrite, 13 WBC -CXR no acute finding -Bcx obtained in ED - following -Continues on IV abx as noted above - de-escalate as cultures result. Per ID NOTE 07/22/2024: The patient is receiving vancomycin and Zosyn. The patient has some element of renal insufficiency,we could consider discontinuing the vancomycin. DC PLANS: CC FOLLOWING CC Note 07/22/2024: ctual Discharge Plan 07/22 SW Initial Assessment: chart reviewed. Note pt is alert and oriented X4. SW met with pt at bedside and introduced self and role. Pt states he lives with his 26yr old son Kimo in a trailer with a ramp to get inside and no steps inside to get to the bedroom/bathroom. Pt states no housing or safety concerns. Pt states his PCP is Dr. Viridiana Oropeza. Pt states his pharmacy is the [facility] in [facility]. Pt states he can afford all his medications, food, transportation, utilities, and other bills. Pt states he was independent with ADL???s prior to admission. Pt states he has a cane and a bariatric 2-wheel walker (primary DME) at home he was using prior to admission. Pt states he was active with prior to admission (does not remember the agency name) and wishes to resume services at d/c. Per Chart Review, [facility]. Resumption referral sent. Awaiting response. Pt states he normally transports via his son Kimo. Pt states he will transport via hisson Kimo at d/c. Pt states no d/c planning support person as he wishes to update family and friends himself. SDOH screen completed. Pt states no other d/c needs at this time. SW following. * Utilization Review Notes - Korina Etienne RN - 07/22/2024 7:39 AM EDT Pt was admitted as observation 07/21* . observation order on chart. Admitted to Telemetry/ MED SURGUnit for ZAC (acute kidney injury) LABS: WBC: 20, Hgb 9.5, Cr: 2.08, CrP:77.53 Blood Cultures Pending U CX Pending Stool Sample Pending MEDS: NS Infusion Zosyn IVPB x 5 Vancomycin IVPB x 1, Daily TESTS: CT Abdomen: IMPRESSION: New pancolitis which is possibly infectious but is overall nonspecific. Small volume ascites. Chronic left ureteral calculus and left renal atrophy. ORDERS: NPO, CT Lower Extremity Right Pending US Renal and Bladder Pending ID Consult NOTES: Per ED Notes 07/21/2024: Patient is a 68-year-old male with history of right KEEGAN requiring revision complicated by infection(E faecalis) requiring prolonged course of IV antibiotics, managed at presenting with abnormal lab. On exam he is alert, no acute distress. Afebrile, vitals reassuring, mild tachycardia noted on arrival that resolved spontaneously. Exam reassuring, including no evidence of skin infection at right KEEGAN site. Mild abdominal tenderness without peritoneal signs. Will proceed with broad workup, including sepsis labs, CT of the abdomen as well as the right lowerextremity. Discussed case with pharmacy, is meeting SIRS criteria given leukocytosis and tachycardia, vanc and zosyn ordered. See ED course above for other notable findings. These include possible UTI. Elevated Pro-Car and CRP without lactic acidosis. There is also an ZAC. IVFs given. No evidence of severe sepsis or septic shock. CT abdomen pelvis with new pancolitis and small volume ascites. CT lower extremity without final read as there is no [facility] radiologist available for review at this time , however I did discuss with Dr Thakkar of of radiology who reviewed images in a limited capacity and reports that abscess seen on prior in April has nearly resolved. Initial plan for transfer to given his prior care (including ortho and ID) was there, however, at this time, I have low clinical suspicion that prosthetic infection is etiology of patient's infectious labs changes. I do not feel patient requires transfer. I did discuss this with patient, he would like to avoid transfer if possible. Will proceed with admission here. He is agreeable. Discussed with edu YIN (DEREK Isidro), who accepted patient to Dr. Thompson's service for further infection management and culture maturation. Patient also remains pending CT lower extremity final read. ED Clinical Impression: 1.ZAC (acute kidney injury) 2.Pancolitis (HCC) DC PLAN: CC following documented in this encounter Plan of Treatment Pending Results Name Type Priority Associated Diagnoses Date /Time ECG AND WAVEFORMS - TELEMETRY Point of Care Testing Routine 07/24/2024 7:01 AM EDT ECG AND WAVEFORMS - TELEMETRY Point of Care Testing Routine 07/25/2024 7:03 PM EDT documented as of this encounter Goals Goal [...] Chicas, DAVID documented as of this encounter Procedures Procedure Name Priority Date/Time Associated Diagnosis Comments GLUCOSE METER POC Routine 07/26/2024 11: 20 AM EDT GLUCOSE METER POC Routine 07/26/2024 8:4 7 AM EDT ECG AND WAVEFORMS - TELEMETRY Routine 07/26/2024 7:58 AM EDT CBC WITH DIFF Early AM 07/26/2024 6:09 AM EDT GLUCOSE METER POC Routine 07/25/2024 9:5 3 PM EDT ECG AND WAVEFORMS - TELEMETRY Routine 07/25/2024 7:03 PM EDT GLUCOSE METER POC Routine 07/25/2024 5:2 2 PM EDT EC ECHOCARDIOGRAM LIMITED Routine 07/25/2024 2:20 PM EDT GLUCOSE METER POC Routine 07/25/2024 11: 34 AM EDT ECG AND WAVEFORMS - TELEMETRY Routine 07/25/2024 8:04 AM EDT GLUCOSE METER POC Routine 07/25/2024 7:3 8 AM EDT CBC WITH DIFF Early AM 07/25/2024 6:23 AM EDT BASIC METABOLIC PANEL Early AM 07/25/2024 6:23 AM EDT GLUCOSE METER POC Routine 07/24/2024 9: 23 PM EDT ECG AND WAVEFORMS - TELEMETRY Routine 07/24/2024 7:43 PM EDT GLUCOSE METER POC Routine 07/24/2024 5:0 8 PM EDT HOME HEALTH ORDERS (FACE TO FACE ENCOUNTER) Routine 07/24/2024 3:35 PM EDT GLUCOSE METER POC Routine 07/24/2024 12: 58 PM EDT GLUCOSE METER POC Routine 07/24/2024 8:0 7 AM EDT ECG AND WAVEFORMS - TELEMETRY Routine 07/24/2024 7:01 AM EDT CBC WITH DIFF Early AM 07/24/2024 6:31 AM EDT BASIC METABOLIC PANEL Early AM 07/24/2024 6:31 AM EDT GLUCOSE METER POC Routine 07/24/2024 12: 22 AM EDT ECG AND WAVEFORMS - TELEMETRY Routine 07/23/2024 7:05 PM EDT GLUCOSE METER POC Routine 07/23/2024 6:5 0 PM EDT GLUCOSE METER POC Routine 07/23/2024 2:3 0 PM EDT ADMIT Routine 07/23/2024 2:28 PM EDT BLOOD CULTURE (NO STAIN) Early AM 07/23/2024 8:10 AM EDT BLOOD CULTURE (NO STAIN) Early AM 07/23/2024 8:10 AM EDT SEDIMENTATION RATE AUTOMATED Early AM 07/23/2024 8:10 AM EDT CBC WITH DIFF Early AM 07/23/2024 8:10 AM EDT C-REACTIVE PROTEIN Early AM 07/23/2024 8: 10 AM EDT CREATINE KINASE Early AM 07/23/2024 8:10 AM EDT COMPREHENSIVE METABOLIC PANEL Early AM 07/23/2024 8:10 AM EDT ECG AND WAVEFORMS - TELEMETRY Routine 07/23/2024 7:30 AM EDT GLUCOSE METER POC Routine 07/23/2024 6:3 2 AM EDT GLUCOSE METER POC Routine 07/23/2024 12: 08 AM EDT ECG AND WAVEFORMS - TELEMETRY Routine 07/22/2024 7:05 PM EDT GLUCOSE METER POC Routine 07/22/2024 5:5 3 PM EDT GLUCOSE METER POC Routine 07/22/2024 2:2 1 PM EDT C DIFF INTERPRETATION Routine 07/22/2024 12:04 PM EDT C DIFF GDH AG AND TOXIN A+B Routine 07/22/2024 12:04 PM EDT C DIFF TOXIN DNA Routine 07/22/2024 12:0 4 PM EDT SHIGA TOXIN Routine 07/22/2024 12:04 PM EDT STOOL CULTURE (NO STAIN) Routine 07/22/2024 12:04 PM EDT OVA AND PARASITE BASIC Routine 12:04 PM EDT US RENAL AND BLADDER DEISI 07/22/2024 10:53 AM EDT GLUCOSE METER POC Routine 07/22/2024 10: 05 AM EDT ECG AND WAVEFORMS - TELEMETRY Routine 07/22/2024 7:00 AM EDT GLUCOSE METER POC Routine 07/22/2024 6:5 9 AM EDT CBC Routine 07/22/2024 4:45 AM EDT VANCOMYCIN LEVEL Early AM 07/22/2024 4:45 AM EDT BASIC METABOLIC PANEL Add-On 07/22/2024 4:45 AM EDT GLUCOSE METER POC Routine 07/21/2024 11: 35 PM EDT ECG AND WAVEFORMS - TELEMETRY Routine 07/21/2024 10:57 PM EDT ADMIT Routine 07/21/2024 7:57 PM EDT URINALYSIS REFLEX STAT 07/21/2024 6:0 4 PM EDT UA W/REFLEX TO CULTURE STAT 6:04 PM EDT EXTRA BE URINE CX STAT 07/21/2024 6 :04 PM EDT URINE CULTURE (NO STAIN) STAT 07/21/2024 6:04 PM EDT PROCALCITONIN STAT 07/21/2024 5:42 PM EDT C-REACTIVE PROTEIN STAT 07/21/2024 5: 42 PM EDT LACTIC ACID STAT 07/21/2024 5:42 PM EDT XR CHEST AP PORTABLE STAT 07/21/2024 5:[address] ABDOMEN PELVIS WO ORAL OR IV CONTRAST STAT 07/21/2024 5:[address] LOWER EXTREMITY RIGHT WO CONTRAST STAT 07/21/2024 5:27 PM EDT IP CONSULT TO PHARMACY Routine 5:16 PM EDT BLOOD CULTURE RAGHAV GRAM POS Routine 07/21/2024 4:58 PM EDT BLOOD CULTURE (NO STAIN) STAT 07/21/2024 4:58 PM EDT BLOOD CULTURE (NO STAIN) STAT 07/21/2024 4:58 PM EDT GLUCOSE METER POC Routine 07/21/2024 4:0 1 PM EDT SEDIMENTATION RATE AUTOMATED Add-On 07/21/2024 4:01 PM EDT CBC WITH DIFF STAT 07/21/2024 4:01 PM EDT COMPREHENSIVE METABOLIC PANEL STAT 07/21/2024 4:01 PM EDT documented in this encounter Results * (ABNORMAL) GLUCOSE METER POC (07/26/2024 11:20 AM EDT) [facility] Glucose Meter POC 146(H) 70 - 100 mg/dL 07/26/2024 11:21 AM EDT [facility] Sample Type Capillary 07/26/2024 11:21 AM EDT [facility] Patient Status Non-Critical Patient 07/26/2024 11:21 AM EDT [facility] Blood BLOOD SPECIMEN / Unknown 07/26/2024 11:20 AM EDT 07/26/2024 11:21 AM EDT Anil Thompson DO POINT OF CARE TEST ORDERABLE S Final Result Performing Organization Address City/[facility]/ZIP Co de Phone Number [facility] [address] [place] [address] * GLUCOSE METER POC (07/26/2024 8:47 AM EDT) Glucose Meter POC 87 70 - 100 mg/dL 07/26/2024 8:48 AM EDT [facility] Sample Type Capillary 07/26/2024 8:48 AM EDT [facility] Patient Status Non-Critical Patient 07/26/2024 8:48 AM EDT [facility] Blood BLOOD SPECIMEN / Unknown 07/26/2024 8:47 AM EDT 07/26/2024 8:48 AM EDT us Anil Thompson DO POINT OF CARE TEST ORDERABLE S Final Result Performing Organization Address [facility]/ZIP Co de Phone Number [facility] [address] [place] [address] * ECG AND WAVEFORMS - TELEMETRY (07/26/2024 7:58 AM EDT) [facility] ECG INTERPRET Sinus with IVCD [facility] 07/26/2024 7:58 AM EDT Narrative [facility] - 07/26/2024 8:03 AM EDT EH - ROUTINE VA 0.20 QRS 0.11 RR 0.88 QT 0.37 QTc 0.39 See Clinical Report link for waveform capture us Unknown Provider POINT OF CARE CARDIOLOGY Final Result Performing Organization Address City/[facility]/ZIP Co de Phone Number [facility] [address], [place] [id number] * (ABNORMAL) CBC WITH DIFF (07/26/2024 6:09 AM EDT) WBC 11.0(H) 3.7 - 10.3 x10(3)/mcL 07/26/2024 7:44 AM EDT [facility] RBC 3.50(L) 4.60 - 6.10 x10(6)/mcL 07/26/2024 7:44 AM EDT [facility] Hgb 9.6(L) 13.7 - 17.5 g/dL 07/26/2024 7:44 AM EDT [facility] Hct 32.4(L) 40.0 - 51.0 % 07/26/2024 7:44 AM EDT [facility] MCV 92.6 80.0 - 100.0 fL 07/26/2024 7:44 AM EDT [facility] MCH 27.4 26.0 - 34.0 pg 07/26/2024 7:44 AM EDT [facility] MCHC 29.6(L) 30.7 - 35.5 g/dL 07/26/2024 7:44 AM EDT [facility] RDW 15.7(H) <=14.9 % 07/26/2024 7:44 AM EDT [facility] Platelet 297 155 - 369 x10(3)/mcL 07/26/2024 7:44 AM EDT [facility] MPV 9.9 8.8 - 12.5 fL 07/26/2024 7:44 AM EDT [facility] Neut Percent 44.6 % 07/26/2024 7:44 AM EDT [facility] Comment:Neutrophils equals s egs plus bands Imm Gran% 0.7 % 07/26/2024 7:44 AM EDT [facility] Comment:Automated count of m etamyelocytes, myelocytes and promyelocytes. Lymph Percent 44.0 % 07/26/2024 7:44 AM EDT [facility] Tift Percent 6.1 % 07/26/2024 7:44 AM EDT [facility] Eos Percent 4.2 % 07/26/2024 7:44 AM EDT [facility] Baso Percent 0.4 % 07/26/2024 7:44 AM EDT [facility] Neut # 4.9 1.6 - 6.1 x10(3)/mcL 07/26/2024 7:44 AM EDT [facility] Comment:Neutrophils equals s egs plus bands IMMGRAN# 0.1 0.0 - 0.1 x10(3)/mcL 07/26/2024 7:44 AM EDT [facility] Comment:Automated count of m etamyelocytes, myelocytes and promyelocytes. An absolute IG <0.1 is reported as 0.0. Lymph # 4.9(H) 1.2 - 3.9 x10(3)/[facility] 07/26/2024 7:44 AM EDT [facility] Tift # 0.7 0.3 - 0.9 x10(3)/[facility] 07/26/2024 7:44 AM EDT [facility] Eos# 0.5 0.0 - 0.5 x10(3)/[facility] 07/26/2024 7:44 AM EDT [facility] Baso # 0.0 0.0 - 0.1 x10(3)/[facility] 07/26/2024 7:44 AM EDT [facility] Blood VENOUS BLOOD / Unknown Venipuncture / Unknown 07/26/2024 6:09 AM EDT 07/26/2024 7:29 AM EDT us Anil Thompson DO HEMATOLOGY ORDERABLES Final Result [facility], [address], [place] [address] * (ABNORMAL) GLUCOSE METER POC (07/25/2024 9:53 PM EDT) [facility] Glucose Meter POC 137(H) 70 - 100 mg/dL 07/25/2024 9:55 PM EDT [facility] Sample Type Capillary 07/25/2024 9:55 PM EDT [facility] Patient Status Non-Critical Patient 07/25/2024 9:55 PM EDT [facility] Blood BLOOD SPECIMEN / Unknown 07/25/2024 9:53 PM EDT 07/25/2024 9:55 PM EDT us Anil Thompson DO POINT OF CARE TEST ORDERABLE S Final Result [facility] [address] [place] [address] * GLUCOSE METER POC (07/25/2024 5:22 PM EDT) Pathologist [facility] Glucose Meter POC 100 70 - 100 mg/dL 07/25/2024 5:23 PM EDT [facility] Sample Type Capillary 07/25/2024 5:23 PM EDT [facility] Patient Status Non-Critical Patient 07/25/2024 5:23 PM EDT [facility] Blood BLOOD SPECIMEN / Unknown 07/25/2024 5:22 PM EDT 07/25/2024 5:23 PM EDT Anil Thompson DO POINT OF CARE TEST ORDERABLE S Final Result [facility] [address] [place] [address] * EC ECHOCARDIOGRAM LIMITED (07/25/2024 2:20 PM EDT) [facility] LV DIASTOLIC PLAX 5.2 cm PYRAMIS Ejection Fraction 55-60% PYRAMIS MITRAL REGURGITATION no PYRAMIS Anatomical Region Laterality Modality Electrocardiogra phy 07/25/2024 1:56 PM EDT Impressions 07/26/2024 8:43 AM EDT Conclusions * Left ventricular chamber dimension is normal. * Left ventricular function is normal with an estimated ejection fraction of 55-60%. * Right ventricular systolic function is normal. * No obvious mitral valve vegetation visualized. * Cannot rule out a tricuspid valve vegetation visualized due to poor visualization of the valve. * No obvious aortic valve vegetation visualized however, difficult to rule out due to thickened/calcified valve. * The pulmonic valve is not well visualized. Narrative Procedure Note Ema Padilla DO - 07/26/2024 IMPRESSION Conclusions * Left ventricular chamber dimension is normal. * Left ventricular function is normal with an estimated ejectionfraction of 55-60%. * Right ventricular systolic function is normal. * No obvious mitral valve vegetation visualized. * Cannot rule out a tricuspid valve vegetation visualized due to poor visualization of the valve. * No obvious aortic valve vegetation visualized however, difficult torule out due to thickened/calcified valve. * The pulmonic valve is not well visualized. us Chapo Calvin MD IMG ECHO ORDERABLES Final Re sult * (ABNORMAL) GLUCOSE METER POC (07/25/2024 11:34 AM EDT) Glucose Meter POC 127(H) 70 - 100 mg/dL 07/25/2024 11:36 AM EDT [facility] Sample Type Capillary 07/25/2024 11:36 AM EDT [facility] Patient Status Non-Critical Patient 07/25/2024 11:36 AM EDT [facility] Blood BLOOD SPECIMEN / Unknown 07/25/2024 11:34 AM EDT 07/25/2024 11:36 AM EDT Anil Thompson DO POINT OF CARE TEST ORDERABLE S Final Result Performing Organization Address City/[facility]/ZIP Co de Phone Number [facility] [address] [place], [place] [id number] * ECG AND WAVEFORMS - TELEMETRY (07/25/2024 8:04 AM EDT) [facility] ECG INTERPRET NSR [facility] 07/25/2024 8:04 AM EDT Narrative [facility] - 07/25/2024 8:06 AM EDT EH - ROUTINE VA 0.20 QRS 0.11 RR 0.88 QT 0.37 QTc 0.39 See Clinical Report link for waveform capture us Unknown Provider POINT OF CARE CARDIOLOGY Final Result Performing Organization Address City/[facility]/ZIP Co de Phone Number [facility] [address] [place] [address] * (ABNORMAL) GLUCOSE METER POC (07/25/2024 7:38 AM EDT) Glucose Meter POC 107(H) 70 - 100 mg/dL 07/25/2024 7:40 AM EDT [facility] Sample Type Capillary 07/25/2024 7:40 AM EDT [facility] Patient Status Non-Critical Patient 07/25/2024 7:40 AM EDT [facility] Blood BLOOD SPECIMEN / Unknown 07/25/2024 7:38 AM EDT 07/25/2024 7:40 AM EDT us Anil Thompson DO POINT OF CARE TEST ORDERABLE S Final Result [facility] [address], [place] [id number] * (ABNORMAL) CBC WITH DIFF (07/25/2024 6:23 AM EDT) WBC 12.1(H) 3.7 - 10.3 x10(3)/mcL 07/25/2024 7:56 AM EDT [facility] RBC 3.51(L) 4.60 - 6.10 x10(6)/mcL 07/25/2024 7:56 AM EDT [facility] Hgb 9.8(L) 13.7 - 17.5 g/dL 07/25/2024 7:56 AM EDT [facility] Hct 32.1(L) 40.0 - 51.0 % 07/25/2024 7:56 AM EDT [facility] MCV 91.5 80.0 - 100.0 fL 07/25/2024 7:56 AM EDT [facility] MCH 27.9 26.0 - 34.0 pg 07/25/2024 7:56 AM EDT [facility] MCHC 30.5(L) 30.7 - 35.5 g/dL 07/25/2024 7:56 AM EDT [facility] RDW 15.8(H) <=14.9 % 07/25/2024 7:56 AM EDT [facility] Platelet 270 155 - 369 x10(3)/mcL 07/25/2024 7:56 AM EDT [facility] MPV 9.6 8.8 - 12.5 fL 07/25/2024 7:56 AM EDT [facility] Neut Percent 45.2 % 07/25/2024 7:[address] [facility] Comment:Neutrophils equals s egs plus bands Imm Gran% 1.1 % 07/25/2024 7:[address] [facility] Comment:Automated count of m etamyelocytes, myelocytes and promyelocytes. IG >1% represents a left shift and provides an early indication of an infection or inflammatory process. Lymph Percent 42.6 % 07/25/2024 7:56 AM EDT [facility] Tift Percent 5.8 % 07/25/2024 7:56 AM EDT [facility] Eos Percent 4.9 % 07/25/2024 7:[address] [facility] Baso Percent 0.4 % 07/25/2024 7:[address] [facility] Neut # 5.5 1.6 - 6.1 x10(3)/[facility] 07/25/2024 7:[address] [facility] Comment:Neutrophils equals s egs plus bands IMMGRAN# 0.1 0.0 - 0.1 x10(3)/[facility] 07/25/2024 7:[address] [facility] Comment:Automated count of m etamyelocytes, myelocytes and promyelocytes. An absolute IG <0.1 is reported as 0.0. Lymph # 5.2(H) 1.2 - 3.9 x10(3)/mcL 07/25/2024 7:56 AM EDT [facility] Tift # 0.7 0.3 - 0.9 x10(3)/[facility] 07/25/2024 7:56 AM EDT [facility] Eos# 0.6(H) 0.0 - 0.5 x10(3)/[facility] 07/25/2024 7:[address] [facility] Baso # 0.1 0.0 - 0.1 x10(3)/[facility] 07/25/2024 7:[address] [facility] Blood VENOUS BLOOD / Unknown Venipuncture / Unknown 07/25/2024 6:23 AM EDT 07/25/2024 7:43 AM EDT Anil Thompson DO HEMATOLOGY ORDERABLES Final Result [facility] [address] [facility] , [place] [address] * (ABNORMAL) BASIC METABOLIC PANEL (07/25/2024 6:23 AM EDT) Sodium 141 136 - 145 mmol/L 07/25/2024 8:18 AM EDT [facility] Potassium 4.3 3.5 - 5.0 mmol/L 07/25/2024 8:18 AM EDT [facility] Chloride 108(H) 98 - 107 mmol/L 07/25/2024 8:18 AM EDT [facility] Total CO2 23 22 - 29 mmol/L 07/25/2024 8:18 AM EDT [facility] Anion Gap 10 7 - 16 mmol/L 07/25/2024 8:18 AM EDT [facility] Calcium 8.8 8.8 - 10.4 mg/dL 07/25/2024 8:18 AM EDT [facility] Glucose Lvl 103(H) 70 - 99 mg/dL 07/25/2024 8:18 AM EDT [facility] BUN 13 8 - 23 mg/dL 07/25/2024 8:18 AM EDT [facility] Creatinine 1.40(H) 0.67 - 1.30 mg/dL 07/25/2024 8:18 AM EDT [facility] eGFR (CKD-EPIcr 2020) 55(L) >=60 mL/min/1.7 3 m2 07/25/2024 8:18 AM EDT [facility] Comment:Estimated GFR was ca lculated using the CKD-EPIcr (2020) equation refit without race. The equation is recommended by the [employer] - [place] [employer] Neph[employer] Task Force. Blood VENOUS BLOOD / Unknown Venipuncture / Unknown 07/25/2024 6:23 AM EDT 07/25/2024 7:43 AM EDT Anil L Thompson DO CHEMISTRY ORDERABLES Final R esult Performing Organization Address City/[facility]/ZIP Co de Phone Number [facility], [place] [address] [facility], [place] [address] * (ABNORMAL) GLUCOSE METER POC (07/24/2024 9:23 PM EDT) Glucose Meter POC 149(H) 70 - 100 mg/dL 07/24/2024 9:25 PM EDT [facility] Sample Type Capillary 07/24/2024 9:25 PM EDT [facility] Patient Status Non-Critical Patient 07/24/2024 9:25 PM EDT [facility] Blood BLOOD SPECIMEN / Unknown 07/24/2024 9:23 PM EDT 07/24/2024 9:25 PM EDT Anil Thompson DO POINT OF CARE TEST ORDERABLE S Final Result Performing Organization Address [facility] Co de Phone Number [facility] [address] [place] [address] * ECG AND WAVEFORMS - TELEMETRY (07/24/2024 7:43 PM EDT) [facility] ECG INTERPRET Sinus Rhythm w/ First Degree AVB [facility] 07/24/2024 7:43 PM EDT Narrative [facility] - 07/24/2024 9:03 PM EDT 1ST DEGREE AVB SG VA 0.23 QRS 0.10 RR 0.72 QT 0.33 QTc 0.39 See Clinical Report link for waveform capture us Unknown Provider POINT OF CARE CARDIOLOGY Final Result Performing Organization Address [facility]/ZIP Co de Phone Number [facility] [address] [place] [address] * (ABNORMAL) GLUCOSE METER POC (07/24/2024 5:08 PM EDT) Glucose Meter POC 107(H) 70 - 100 mg/dL 07/24/2024 5:10 PM EDT [facility] Sample Type Capillary 07/24/2024 5:[address] [facility] Patient Status Non-Critical Patient 07/24/2024 5:10 PM EDT [facility] Blood BLOOD SPECIMEN / Unknown 07/24/2024 5:08 PM EDT 07/24/2024 5:10 PM EDT Anil Thompson DO POINT OF CARE TEST ORDERABLE S Final Result Performing Organization Address [facility]/[place] [address] * (ABNORMAL) GLUCOSE METER POC (07/24/2024 12:58 PM EDT) Glucose Meter POC 125(H) 70 - 100 mg/dL 07/24/2024 12:59 PM EDT [facility] Sample Type Capillary 07/24/2024 12:[address] [facility] Patient Status Non-Critical Patient 07/24/2024 12:59 PM EDT [facility] Blood BLOOD SPECIMEN / Unknown 07/24/2024 12:58 PM EDT 07/24/2024 12:59 PM EDT Anil Thompson POINT OF CARE TEST ORDERABLE S Final Result Performing Organization Address [facility] [place] [address] * (ABNORMAL) GLUCOSE METER POC (07/24/2024 8:07 AM EDT) Glucose Meter POC 107(H) 70 - 100 mg/dL 07/24/2024 8:08 AM EDT [facility] Sample Type Capillary 07/24/2024 8:08 AM EDT [facility] Patient Status Non-Critical Patient 07/24/2024 8:08 AM EDT [facility] Blood BLOOD SPECIMEN / Unknown 07/24/2024 8:07 AM EDT 07/24/2024 8:08 AM EDT us Anil Thompson DO POINT OF CARE TEST ORDERABLE S Final Result [facility] [address] [place] [address] * (ABNORMAL) CBC WITH DIFF (07/24/2024 6:31 AM EDT) WBC 12.6(H) 3.7 - 10.3 x10(3)/mcL 07/24/2024 7:29 AM EDT [facility] RBC 3.56(L) 4.60 - 6.10 x10(6)/mcL 07/24/2024 7:29 AM EDT [facility] Hgb 9.7(L) 13.7 - 17.5 g/dL 07/24/2024 7:29 AM EDT [facility] Hct 32.3(L) 40.0 - 51.0 % 07/24/2024 7:29 AM EDT [facility] MCV 90.7 80.0 - 100.0 fL 07/24/2024 7:29 AM EDT [facility] MCH 27.2 26.0 - 34.0 pg 07/24/2024 7:29 AM EDT [facility] MCHC 30.0(L) 30.7 - 35.5 g/dL 07/24/2024 7:29 AM EDT [facility] RDW 15.7(H) <=14.9 % 07/24/2024 7:29 AM EDT [facility] Platelet 261 155 - 369 x10(3)/mcL 07/24/2024 7:29 AM EDT [facility] MPV 9.7 8.8 - 12.5 fL 07/24/2024 7:29 AM EDT [facility] Neut Percent 47.0 % 07/24/2024 7:29 AM EDT [facility] Comment:Neutrophils equals s egs plus bands Imm Gran% 1.3 % 07/24/2024 7:29 AM EDT [facility] Comment:Automated count of m etamyelocytes, myelocytes and promyelocytes. IG >1% represents a left shift and provides an early indication of an infection or inflammatory process. Lymph Percent 40.1 % 07/24/2024 7:29 AM EDT [facility] Tift Percent 5.3 % 07/24/2024 7:29 AM EDT [facility] Eos Percent 6.0 % 07/24/2024 7:29 AM EDT [facility] Baso Percent 0.3 % 07/24/2024 7:29 AM EDT [facility] Neut # 5.9 1.6 - 6.1 x10(3)/[facility] 07/24/2024 7:29 AM EDT [facility] Comment:Neutrophils equals s egs plus bands IMMGRAN# 0.2(H) 0.0 - 0.1 x10(3)/mcL 07/24/2024 7:29 AM EDT [facility] Comment:Automated count of m etamyelocytes, myelocytes and promyelocytes. An absolute IG <0.1 is reported as 0.0. Lymph # 5.0(H) 1.2 - 3.9 x10(3)/[facility] 07/24/2024 7:29 AM EDT [facility] Tift # 0.7 0.3 - 0.9 x10(3)/[facility] 07/24/2024 7:29 AM EDT [facility] Eos# 0.8(H) 0.0 - 0.5 x10(3)/mcL 07/24/2024 7:29 AM EDT [facility] Baso # 0.0 0.0 - 0.1 x10(3)/[facility] 07/24/2024 7:[address] [facility] Blood VENOUS BLOOD / Unknown Venipuncture / Unknown 07/24/2024 6:31 AM EDT 07/24/2024 7:16 AM EDT us Anil Thompson DO HEMATOLOGY ORDERABLES Final Result [facility] [address] [facility] , [place] [address] * (ABNORMAL) BASIC METABOLIC PANEL (07/24/2024 6:31 AM EDT) Sodium 140 136 - 145 mmol/L 07/24/2024 7:56 AM EDT [facility] Potassium 4.0 3.5 - 5.0 mmol/L 07/24/2024 7:56 AM EDT [facility] Chloride 110(H) 98 - 107 mmol/L 07/24/2024 7:56 AM EDT [facility] Total CO2 19(L) 22 - 29 mmol/L 07/24/2024 7:56 AM EDT [facility] Anion Gap 11 7 - 16 mmol/L 07/24/2024 7:56 AM EDT [facility] Calcium 8.9 8.8 - 10.4 mg/dL 07/24/2024 7:[address] [facility] Glucose Lvl 95 70 - 99 mg/dL 07/24/2024 7:[address] [facility] BUN 15 8 - 23 mg/dL 07/24/2024 7:[address] [facility] Creatinine 1.44(H) 0.67 - 1.30 mg/dL 07/24/2024 7:[address] [facility] eGFR (CKD-EPIcr 2020) 53(L) >=60 mL/min/1.7 3 m2 07/24/2024 7:[address] [facility] Comment:Estimated GFR was ca lculated using the CKD-EPIcr (2020) equation refit without race. The equation is recommended by the National Kid[employer] - [place] [employer] Nephrology Task Force. Blood VENOUS BLOOD / Unknown Venipuncture / Unknown 07/24/2024 6:31 AM EDT 07/24/2024 7:16 AM EDT us Anil Thompson DO CHEMISTRY ORDERABLES Final R esult [facility] [address] [facility] , [place] [address] * GLUCOSE METER POC (07/24/2024 12:22 AM EDT) Glucose Meter POC 91 70 - 100 mg/dL 07/24/2024 12:24 AM EDT [facility] Sample Type Capillary 07/24/2024 12:24 AM EDT [facility] Patient Status Non-Critical Patient 07/24/2024 12:24 AM EDT [facility] Blood BLOOD SPECIMEN / Unknown 07/24/2024 12:22 AM EDT 07/24/2024 12:24 AM EDT Anil Thompson DO POINT OF CARE TEST ORDERABLE S Final Result Performing Organization Address City/[facility]/ZIP Co de Phone Number [facility] [address] [place] [address] * ECG AND WAVEFORMS - TELEMETRY (07/23/2024 7:05 PM EDT) ECG INTERPRET NSR [facility] 07/23/2024 7:05 PM EDT Narrative [facility] - 07/23/2024 8:21 PM EDT ROUTINE/1stAVB/af VA 0.22 QRS 0.10 RR 0.77 QT 0.45 QTc 0.51 See Clinical Report link for waveform capture us Unknown Provider POINT OF CARE CARDIOLOGY Final Result Performing Organization Address City/[facility]/ZIP Co de Phone Number [facility] [address] [place] [address] * (ABNORMAL) GLUCOSE METER POC (07/23/2024 6:50 PM EDT) Glucose Meter POC 154(H) 70 - 100 mg/dL 07/23/2024 6:52 PM EDT [facility] Sample Type Capillary 07/23/2024 6:52 PM EDT [facility] Patient Status Non-Critical Patient 07/23/2024 6:52 PM EDT [facility] Blood BLOOD SPECIMEN / Unknown 07/23/2024 6:50 PM EDT 07/23/2024 6:52 PM EDT Anil Thompson DO POINT OF CARE TEST ORDERABLE S Final Result Performing Organization Address City/[facility]/ZIP Co de Phone Number [facility] [address] [place] [address] * GLUCOSE METER POC (07/23/2024 2:30 PM EDT) [facility] Signature Glucose Meter POC 99 70 - 100 mg/dL 07/23/2024 2:32 PM EDT [facility] Sample Type Capillary 07/23/2024 2:32 PM EDT [facility] Patient Status Non-Critical Patient 07/23/2024 2:32 PM EDT [facility] Blood BLOOD SPECIMEN / Unknown 07/23/2024 2:30 PM EDT 07/23/2024 2:32 PM EDT Anil Thompson DO POINT OF CARE TEST ORDERABLE S Final Result Performing Organization Address [facility]/ZIP Co de Phone Number [facility] [address] [place] [address] * (ABNORMAL) CBC WITH DIFF (07/23/2024 8:10 AM EDT) WBC 16.6(H) 3.7 - 10.3 x10(3)/mcL 07/23/2024 9:28 AM EDT [facility] RBC 3.61(L) 4.60 - 6.10 x10(6)/mcL 07/23/2024 9:28 AM EDT [facility] Hgb 9.9(L) 13.7 - 17.5 g/dL 07/23/2024 9:28 AM EDT [facility] Hct 33.6(L) 40.0 - 51.0 % 07/23/2024 9:28 AM EDT [facility] MCV 93.1 80.0 - 100.0 fL 07/23/2024 9:28 AM EDT [facility] MCH 27.4 26.0 - 34.0 pg 07/23/2024 9:28 AM EDT [facility] MCHC 29.5(L) 30.7 - 35.5 g/dL 07/23/2024 9:28 AM EDT [facility] RDW 15.6(H) <=14.9 % 07/23/2024 9:28 AM EDT [facility] Platelet 256 155 - 369 x10(3)/mcL 07/23/2024 9:28 AM EDT [facility] MPV 10.0 8.8 - 12.5 fL 07/23/2024 9:28 AM EDT [facility] Neut Percent 57.5 % 07/23/2024 9:28 AM EDT [facility] Comment:Neutrophils equals s egs plus bands Imm Gran% 1.2 % 07/23/2024 9:28 AM EDT [facility] Comment:Automated count of m etamyelocytes, myelocytes and promyelocytes. IG >1% represents a left shift and provides an early indication of an infection or inflammatory process. Lymph Percent 31.8 % 07/23/2024 9:28 AM EDT [facility] Tift Percent 4.9 % 07/23/2024 9:28 AM EDT [facility] Eos Percent 4.4 % 07/23/2024 9:28 AM EDT [facility] Baso Percent 0.2 % 07/23/2024 9:[address] [facility] Neut # 9.6(H) 1.6 - 6.1 x10(3)/mcL 07/23/2024 9:[address] [facility] Comment:Neutrophils equals s egs plus bands IMMGRAN# 0.2(H) 0.0 - 0.1 x10(3)/mcL 07/23/2024 9:[address] [facility] Comment:Automated count of m etamyelocytes, myelocytes and promyelocytes. An absolute IG <0.1 is reported as 0.0. Lymph # 5.3(H) 1.2 - 3.9 x10(3)/mcL 07/23/2024 9:28 AM EDT [facility] Tift # 0.8 0.3 - 0.9 x10(3)/mcL 07/23/2024 9:28 AM EDT [facility] Eos# 0.7(H) 0.0 - 0.5 x10(3)/mcL 07/23/2024 9:28 AM EDT [facility] Baso # 0.0 0.0 - 0.1 x10(3)/mcL 07/23/2024 9:28 AM EDT [facility] Blood VENOUS BLOOD / Unknown Venipuncture / Unknown 07/23/2024 8:10 AM EDT 07/23/2024 8:21 AM EDT us Chapo Calvin MD HEMATOLOGY ORDERABLES Final Result [facility] [address] [facility] , [place] [address] * (ABNORMAL) COMPREHENSIVE METABOLIC PANEL (07/23/2024 8:10 AM EDT) Sodium 138 136 - 145 mmol/L 07/23/2024 9:14 AM EDT [facility] Potassium 4.3 3.5 - 5.0 mmol/L 07/23/2024 9:14 AM EDT [facility] Chloride 109(H) 98 - 107 mmol/L 07/23/2024 9:14 AM EDT [facility] Total CO2 20(L) 22 - 29 mmol/L 07/23/2024 9:14 AM EDT [facility] Anion Gap 9 7 - 16 mmol/L 07/23/2024 9:14 AM EDT [facility] Calcium 8.8 8.8 - 10.4 mg/dL 07/23/2024 9:14 AM EDT [facility] Glucose Lvl 99 70 - 99 mg/dL 07/23/2024 9:14 AM EDT [facility] BUN 18 8 - 23 mg/dL 07/23/2024 9:14 AM EDT [facility] Creatinine 1.67(H) 0.67 - 1.30 mg/dL 07/23/2024 9:14 AM EDT [facility] Albumin 3.1(L) 3.2 - 4.6 gm/dL 07/23/2024 9:14 AM EDT [facility] Total Protein 5.7(L) 6.4 - 8.3 gm/dL 07/23/2024 9:14 AM EDT [facility] Bili Total 0.2 0.2 - 1.4 mg/dL 07/23/2024 9:14 AM EDT [facility] ALT 6 <=41 U/L 07/23/2024 9:14 AM EDT [facility] AST 10 <=40 U/L 07/23/2024 9:14 AM EDT [facility] Alk Phos 82 40 - 129 U/L 07/23/2024 9:14 AM EDT [facility] eGFR (CKD-EPIcr 2020) 45(L) >=60 mL/min/1.7 3 m2 07/23/2024 9:[address] [facility] Comment:Estimated GFR was ca lculated using the CKD-EPIcr (2020) equation refit without race. The equation is recommended by the National Kidney [employer] - [place] [employer] Nephrology Task Force. Blood VENOUS BLOOD / Unknown Venipuncture / Unknown 07/23/2024 8:10 AM EDT 07/23/2024 8:21 AM EDT us Chapo Calvin MD CHEMISTRY ORDERABLES Final R esult Performing Organization Address City/[facility]/ZIP Co de Phone Number [address] , [place] [address] * BLOOD CULTURE (NO STAIN) (07/23/2024 8:10 AM EDT) Culture Result No Growth at 120 hours. BLOOD CULTURE (NO STAIN) 07/28/2024 9:00 AM EDT [facility] Blood VENOUS BLOOD / Unknown Venipuncture / Unknown 07/23/2024 8:10 AM EDT 07/23/2024 8:20 AM EDT us Chapo Calvin MD MICROBIOLOGY - GENERAL ORDER ARJUN Final Result Performing Organization Address City/[facility]/ZIP Co de Phone Number [facility] [address] [facility] , [address] [place] [phone] * BLOOD CULTURE (NO STAIN) (07/23/2024 8:10 AM EDT) Culture Result No Growth at 120 hours. BLOOD CULTURE (NO STAIN) 07/28/2024 9:00 AM EDT [facility] [employer] Blood VENOUS BLOOD / Unknown Venipuncture / Unknown 07/23/2024 8:10 AM EDT 07/23/2024 8:20 AM EDT Chapo Calvin MD MICROBIOLOGY - GENERAL ORDER ARJUN Final Result Performing Organization Address [facility]/ZIP Co de Phone Number [facility] [employer] [facility] [address] [facility] , [place] [phone] * (ABNORMAL) C-REACTIVE PROTEIN (07/23/2024 8:10 AM EDT) Pathologist [facility] CRP 94.55(H) <=5.00 mg/L 07/23/2024 12:34 PM EDT [employer] Blood VENOUS BLOOD / Unknown Venipuncture / Unknown 07/23/2024 8:10 AM EDT 07/23/2024 8:21 AM EDT us Chapo Calvin MD CHEMISTRY ORDERABLES Final R esult Performing Organization Address City/[facility]/ZIP Co de Phone Number [facility] [employer] [address] [facility] , [place] [address] * (ABNORMAL) SEDIMENTATION RATE AUTOMATED (07/23/2024 8:10 AM EDT) Sed Rate 39(H) 0 - 20 mm/hr 07/23/2024 9:28 AM EDT [employer] Blood VENOUS BLOOD / Unknown Venipuncture / Unknown 07/23/2024 8:10 AM EDT 07/23/2024 8:21 AM EDT us Chapo Calvin MD HEMATOLOGY ORDERABLES Final Result Performing Organization Address City/[facility] Co de Phone Number [facility] [employer] , [place] [address] * (ABNORMAL) CREATINE KINASE (07/23/2024 8:10 AM EDT) [facility] CK 13(L) 39 - 308 U/L 07/23/2024 12:[address] [facility] Listen Edition [facility] Blood VENOUS BLOOD / Unknown Venipuncture / Unknown 07/23/2024 8:10 AM EDT 07/23/2024 8:21 AM EDT us Chapo Calvin MD CHEMISTRY ORDERABLES Final R esult Performing Organization Address [facility] Co de Phone Number [facility] [employer] , [place] [address] * ECG AND WAVEFORMS - TELEMETRY (07/23/2024 7:30 AM EDT) [facility] ECG INTERPRET NSR [facility] 07/23/2024 7:30 AM EDT Narrative [facility] - 07/23/2024 7:51 AM EDT [place] ROUTINE/1ST DEG VA 0.22 QRS 0.09 RR 0.71 QT 0.35 See Clinical Report link for waveform capture us Unknown Provider POINT OF CARE CARDIOLOGY Final Result Performing Organization Address [facility] Co de Phone Number [facility] [address] [place] [address] * (ABNORMAL) GLUCOSE METER POC (07/23/2024 6:32 AM EDT) [facility] Glucose Meter POC 102(H) 70 - 100 mg/dL 07/23/2024 6:33 AM EDT [facility] Sample Type Capillary 07/23/2024 6:33 AM EDT [facility] Patient Status Non-Critical Patient 07/23/2024 6:33 AM EDT [facility] Blood BLOOD SPECIMEN / Unknown 07/23/2024 6:32 AM EDT 07/23/2024 6:33 AM EDT us Anil Thompson DO POINT OF CARE TEST ORDERABLE S Final Result Performing Organization Address City/[facility]/ZIP Co de Phone Number [facility] [address] [place] [address] * GLUCOSE METER POC (07/23/2024 12:08 AM EDT) Glucose Meter POC 94 70 - 100 mg/dL 07/23/2024 12:12 AM EDT [facility] Sample Type Capillary 07/23/2024 12:12 AM EDT [facility] Patient Status Non-Critical Patient 07/23/2024 12:12 AM EDT [facility] Blood BLOOD SPECIMEN / Unknown 07/23/2024 12:08 AM EDT 07/23/2024 12:12 AM EDT us Anil Thompson DO POINT OF CARE TEST ORDERABLE S Final Result Performing Organization Address [facility]/ZIP Co de Phone Number [facility] [address] [place] [address] * ECG AND WAVEFORMS - TELEMETRY (07/22/2024 7:05 PM EDT) [facility] Signature ECG INTERPRET NSR [facility] 07/22/2024 7:05 PM EDT Narrative [facility] - 07/22/2024 8:02 PM EDT ROUTINE/af VA 0.20 QRS 0.10 RR 0.72 QT 0.43 QTc 0.51 See Clinical Report link for waveform capture us Unknown Provider POINT OF CARE CARDIOLOGY Final Result Performing Organization Address City/[facility]/ZIP Co de Phone Number [facility] [address] [place], [place] [id number] * (ABNORMAL) GLUCOSE METER POC (07/22/2024 5:53 PM EDT) Glucose Meter POC 105(H) 70 - 100 mg/dL 07/22/2024 5:54 PM EDT [facility] Sample Type Capillary 07/22/2024 5:54 PM EDT [facility] Patient Status Non-Critical Patient 07/22/2024 5:54 PM EDT [facility] Blood BLOOD SPECIMEN / Unknown 07/22/2024 5:53 PM EDT 07/22/2024 5:54 PM EDT Anil Thompson POINT OF CARE TEST ORDERABLE S Final Result Performing Organization Address City/[facility]/ZIP Co de Phone Number [facility] [address] [place] [address] * (ABNORMAL) GLUCOSE METER POC (07/22/2024 2:21 PM EDT) Glucose Meter POC 137(H) 70 - 100 mg/dL 07/22/2024 2:22 PM EDT [facility] Sample Type Capillary 07/22/2024 2:[address] [facility] Patient Status Non-Critical Patient 07/22/2024 2:22 PM EDT [facility] Blood BLOOD SPECIMEN / Unknown 07/22/2024 2:21 PM EDT 07/22/2024 2:22 PM EDT us Anil Thompson DO POINT OF CARE TEST ORDERABLE S Final Result Performing Organization Address [facility]/ZIP Co de Phone Number [facility] [address] [place] [address] * (ABNORMAL) C DIFF INTERPRETATION (07/22/2024 12:04 PM EDT) C Diff Toxin DNA Positive(A) Negative 07/22/2024 1:41 PM EDT [facility] NAP1 Presumptive Neg Presumptive Neg 07/22/2024 1:41 PM EDT [facility] GDH Antigen Positive(A) Negative 07/22/2024 1:41 PM EDT [facility] C diff toxin A/B Positive(A) Negative 07/22/2024 1:41 PM EDT [facility] Stool RECTUM STRUCTURE / Unknown 07/22/2024 12:04 PM EDT 07/22/2024 12:11 PM EDT Narrative [facility] - 07/22/2024 1:41 PM EDT Toxin producing C diff target DNA sequences detected. Toxins A/B positive. CDI likely. Consider initiation of severity-based CDI therapy according to CDI management guidance. Anil Thompson DO MICROBIOLOGY - GENERAL ORDER ARJUN Final Result Performing Organization Address City/[facility] Co de Phone Number [facility], [address] , [place] [address] * C DIFF GDH AG AND TOXIN A+B (07/22/2024 12:04 PM EDT) Stool RECTUM STRUCTURE / Unknown 07/22/2024 12:04 PM EDT 07/22/2024 12:11 PM EDT Anil Thompson DO MICROBIOLOGY - GENERAL ORDER ARJUN Final Result Performing Organization Address [facility] Co de Phone Number [facility] [employer], [address] , [address] [place] [phone] * OVA AND PARASITE BASIC (07/22/2024 12:04 PM EDT) Pathologist [facility] Giardia Lamblia Antigen Not Detected Not detected 07/22/2024 6:[address] [facility] Cryptosporidium Exam Not Detected Not Detected 07/22/2024 6:[address] [facility] Stool RECTUM STRUCTURE / Unknown 07/22/2024 12:04 PM EDT 07/22/2024 12:11 PM EDT Anil Thompson DO MICROBIOLOGY - GENERAL ORDER ARJUN Final Result Performing Organization Address City/[facility] Co de Phone Number [facility] [employer], [address] , [place] [address] * SHIGA TOXIN (07/22/2024 12:04 PM EDT) Shiga Toxin Shiga toxins (produced by E. coli) not detected. Shiga toxins (produced by E. coli) not detected. 07/23/2024 5:08 PM EDT [employer] Stool RECTUM STRUCTURE / Unknown 07/22/2024 12:04 PM EDT 07/22/2024 9:23 PM EDT Anil Thompson DO MICROBIOLOGY - GENERAL ORDER ARJUN Final Result Performing Organization Address City/[facility] Co de Phone Number [employer] [address] [place] [address] , [place] [address] * STOOL CULTURE (NO STAIN) (07/22/2024 12:04 PM EDT) Pathologist [facility] Culture No growth of enteric pathogens, including Salmonella, Shigella, Campylobacter, Vibrio, Yersinia, Aeromonas, Plesiomonas, or E. coli O157. 07/24/2024 7:50 AM EDT [employer] Stool RECTUM STRUCTURE / Unknown 07/22/2024 12:04 PM EDT 07/22/2024 12:11 PM EDT Anil Thompson DO MICROBIOLOGY - GENERAL ORDER ARJUN Final Result Performing Organization Address [facility] Co de Phone Number [facility] [employer] [address] , [place] [address] * C DIFF TOXIN DNA (07/22/2024 12:04 PM EDT) Stool RECTUM STRUCTURE / Unknown 07/22/2024 12:04 PM EDT 07/22/2024 12:11 PM EDT Anil Thompson DO MICROBIOLOGY - GENERAL ORDER ARJUN Final Result Performing Organization Address City/[facility] Co de Phone Number [employer] [address] , [place] [address] * US RENAL AND BLADDER (07/22/2024 10:53 AM EDT) Anatomical Region Laterality Modality Abdomen, Pelvis Ultrasound 07/22/2024 10:5 3 AM EDT Impressions 07/22/2024 11:09 AM EDT No evidence of active obstructive uropathy or other acute finding. Small/atrophic left kidney with multiple nonobstructing stones. - Note: Radiology results need to be interpreted within a comprehensive clinical context. If you have questions about the radiology report, please contact the office of the ordering clinician. Narrative 07/22/2024 11:09 AM EDT US KIDNEYS AND BLADDER, 07/22/2024 10:53 AM CLINICAL HISTORY: -Acute renal insufficiency. COMPARISON: CT 07/21/2024 PROCEDURE COMMENTS: Routine sonographic evaluation of the kidneys and bladder with operations support representative images and regulatory auditor notes sent to PACS for radiologist review. FINDINGS: RIGHT: 12.4 x 5.7 x 5.3 cm. No hydronephrosis, solid-appearing mass, or shadowing stone. LEFT: Small/atrophic measuring 8.1 x 3.5 x 3.2 cm. No hydronephrosis or solid-appearing mass. Multiple nonobstructing small shadowing stone. There is a thin cortex measuring 8 mm. PELVIS: No bladder mass identified. Evaluation of the urinary bladder limited by low volume from recent void. Procedure Note Salvatore Vasquez MD - 07/22/2024 US KIDNEYS AND BLADDER, 07/22/2024 10:53 AM CLINICAL HISTORY: -Acute renal insufficiency. COMPARISON: CT 07/21/2024 PROCEDURE COMMENTS: Routine sonographic evaluation of the kidneys andbladder with operations support representative images and regulatory auditor notes sent to PACS forradiologist review. FINDINGS: RIGHT: 12.4 x 5.7 x 5.3 cm. No hydronephrosis, solid-appearing mass,or shadowing stone. LEFT: Small/atrophic measuring 8.1 x 3.5 x 3.2 cm. No hydronephrosisor solid-appearing mass. Multiple nonobstructing small shadowing stone. Thereis a thin cortex measuring 8 mm. PELVIS: No bladder mass identified. Evaluation of the urinary bladderlimited by low volume from recent void. IMPRESSION: No evidence of active obstructive uropathy or other acute finding. Small/atrophic left kidney with multiple nonobstructing stones. - Note: Radiology results need to be interpreted within a comprehensiveclinical context. If you have questions about the radiology report, please contactthe office of the ordering clinician. us Anil Thompson DO IMG US ORDERABLES Final Resu lt * (ABNORMAL) GLUCOSE METER POC (07/22/2024 10:05 AM EDT) Glucose Meter POC 110(H) 70 - 100 mg/dL 07/22/2024 10:06 AM EDT [facility] Sample Type Capillary 07/22/2024 10:06 AM EDT [facility] Patient Status Non-Critical Patient 07/22/2024 10:06 AM EDT [facility] Blood BLOOD SPECIMEN / Unknown 07/22/2024 10:05 AM EDT 07/22/2024 10:06 AM EDT Anil Thompson DO POINT OF CARE TEST ORDERABLE S Final Result [facility] [address] [place] [address] * ECG AND WAVEFORMS - TELEMETRY (07/22/2024 7:00 AM EDT) [facility] Signature ECG INTERPRET NSR [facility] 07/22/2024 7:00 AM EDT Narrative [facility] - 07/22/2024 11:03 AM EDT VR, ROUTINE VA 0.20 QRS 0.10 RR 0.79 QT 0.37 QTc 0.41 See Clinical Report link for waveform capture us Unknown Provider POINT OF CARE CARDIOLOGY Final Result [facility] [address] [place] [address] * (ABNORMAL) GLUCOSE METER POC (07/22/2024 6:59 AM EDT) Glucose Meter POC 115(H) 70 - 100 mg/dL 07/22/2024 7:00 AM EDT [facility] Sample Type Capillary 07/22/2024 7:00 AM EDT [facility] Patient Status Non-Critical Patient 07/22/2024 7:00 AM EDT [facility] Blood BLOOD SPECIMEN / Unknown 07/22/2024 6:59 AM EDT 07/22/2024 7:00 AM EDT Anil Thompson DO POINT OF CARE TEST ORDERABLE S Final Result [facility] [address] [place], [place] [id number] * (ABNORMAL) BASIC METABOLIC PANEL (07/22/2024 4:45 AM EDT) Sodium 136 136 - 145 mmol/L 07/22/2024 7:33 AM EDT [facility] Potassium 4.4 3.5 - 5.0 mmol/L 07/22/2024 7:33 AM EDT [facility] Chloride 107 98 - 107 mmol/L 07/22/2024 7:33 AM EDT [facility] Total CO2 18(L) 22 - 29 mmol/L 07/22/2024 7:33 AM EDT [facility] Anion Gap 11 7 - 16 mmol/L 07/22/2024 7:33 AM EDT [facility] Calcium 8.4(L) 8.8 - 10.4 mg/dL 07/22/2024 7:33 AM EDT [facility] Glucose Lvl 113(H) 70 - 99 mg/dL 07/22/2024 7:33 AM EDT [facility] BUN 27(H) 8 - 23 mg/dL 07/22/2024 7:33 AM EDT [facility] Creatinine 1.78(H) 0.67 - 1.30 mg/dL 07/22/2024 7:33 AM EDT [facility] eGFR (CKD-EPIcr 2020) 41(L) >=60 mL/min/1.7 3 m2 07/22/2024 7:33 AM EDT [facility] Comment:Estimated GFR was ca lculated using the CKD-EPIcr (2020) equation refit without race. The equation is recommended by the National Kidney Foundation - [place] [employer] of Nephrology Task Force. Blood VENOUS BLOOD / Unknown Venipuncture / Unknown 07/22/2024 4:45 AM EDT 07/22/2024 5:07 AM EDT us Anil Thompson DO CHEMISTRY ORDERABLES Final R esult [facility] [place] [address] [facility] , [address] [place] [phone] * (ABNORMAL) CBC (07/22/2024 4:45 AM EDT) WBC 20.0(H) 3.7 - 10.3 x10(3)/mcL 07/22/2024 6:40 AM EDT [facility] RBC 3.48(L) 4.60 - 6.10 x10(6)/mcL 07/22/2024 6:40 AM EDT [facility] Hgb 9.5(L) 13.7 - 17.5 g/dL 07/22/2024 6:40 AM EDT [facility] Hct 31.6(L) 40.0 - 51.0 % 07/22/2024 6:40 AM EDT [facility] MCV 90.8 80.0 - 100.0 fL 07/22/2024 6:40 AM EDT [facility] MCH 27.3 26.0 - 34.0 pg 07/22/2024 6:40 AM EDT [facility] MCHC 30.1(L) 30.7 - 35.5 g/dL 07/22/2024 6:40 AM EDT [facility] RDW 15.6(H) <=14.9 % 07/22/2024 6:40 AM EDT [facility] Platelet 266 155 - 369 x10(3)/mcL 07/22/2024 6:40 AM EDT [facility] MPV 9.9 8.8 - 12.5 fL 07/22/2024 6:40 AM EDT [facility] [employer] Blood VENOUS BLOOD / Unknown Venipuncture / Unknown 07/22/2024 4:45 AM EDT 07/22/2024 5:07 AM EDT Nury Mcdermott APRN HEMATOLOGY ORDERABLES Final R esult [employer] [address] , [address] [place] [id number] * VANCOMYCIN LEVEL (07/22/2024 4:45 AM EDT) [facility] Vanco Random 14.6 mcg/mL 07/22/2024 5:[address] [facility] [employer] Blood VENOUS BLOOD / Unknown Venipuncture / Unknown 07/22/2024 4:45 AM EDT 07/22/2024 5:07 AM EDT Cat Jules MD CHEMISTRY ORDERABLES Final Result Performing Organization Address City/[facility]/ZIP Co de Phone Number [facility] [employer] [facility] [address] [facility] , [place] [address] * (ABNORMAL) GLUCOSE METER POC (07/21/2024 11:35 PM EDT) [facility] Glucose Meter POC 102(H) 70 - 100 mg/dL 07/21/2024 11:36 PM EDT [facility] Sample Type Capillary 07/21/2024 11:36 PM EDT [facility] Patient Status Non-Critical Patient 07/21/2024 11:36 PM EDT [facility] Blood BLOOD SPECIMEN / Unknown 07/21/2024 11:35 PM EDT 07/21/2024 11:36 PM EDT Anil Thompson DO POINT OF CARE TEST ORDERABLE S Final Result [facility] [address] [place] [address] * ECG AND WAVEFORMS - TELEMETRY (07/21/2024 10:57 PM EDT) [facility] ECG INTERPRET NSR [facility] 07/21/2024 10:5 7 PM EDT Narrative [facility] - 07/21/2024 10:59 PM EDT ROUTINE/af VA 0.18 QRS 0.09 RR 0.71 QT 0.37 QTc 0.44 See Clinical Report link for waveform capture us Unknown Provider POINT OF CARE CARDIOLOGY Final Result Performing Organization Address City/[facility]/ZIP Co de Phone Number [facility] [address] [place] [address] * URINE CULTURE (NO STAIN) (07/21/2024 6:04 PM EDT) [facility] Culture Multiple bacterial species isolated from urine consistent with urogenital commensal organisms. 07/23/2024 3:11 AM EDT [facility] [employer] Urine STRUCTURE OF URINARY TRACT PROPER / Unknown 07/21/2024 6:04 PM EDT 07/21/2024 6:17 PM EDT us Cat Jules MD MICROBIOLOGY - GENERAL ORD ERABLES Final Result Performing Organization Address City/[facility]/ZIP Co de Phone Number [facility] [employer] [address] [facility], [place] [address] * EXTRA BE URINE CX (07/21/2024 6:04 PM EDT) Urine STRUCTURE OF URINARY TRACT PROPER / Unknown 07/21/2024 6:04 PM EDT 07/21/2024 6:09 PM EDT us Cat Jules MD MICROBIOLOGY - GENERAL ORD ERABLES Final Result Performing Organization Address City/[facility]/ZIP Co de Phone Number [facility] [address] [place] [address] * (ABNORMAL) URINALYSIS REFLEX (07/21/2024 6:04 PM EDT) UA Color Yellow 07/21/2024 6:17 PM EDT [facility] [employer] UA Appear Clear Clear 07/21/2024 6:17 PM EDT [facility] UA Glucose Negative Negative mg/dL 07/21/2024 6:17 PM EDT [facility] UA Ketones Negative Negative mg/dL 07/21/2024 6:17 PM EDT [facility] UA Blood Negative Negative 07/21/2024 6:17 PM EDT [facility] UA pH 6.0 5.0 - 8.0 pH 07/21/2024 6:17 PM EDT [facility] UA Protein 1+ (30-70 mg/dL)(A) Negative mg/dL 07/21/2024 6:17 PM EDT [facility] UA Urobilinogen Normal <=1 mg/dL 6:17 PM EDT [facility] UA Bili Negative Negative 07/21/2024 6:17 PM EDT [facility] UA Nitrite Negative Negative 07/21/2024 6:17 PM EDT [facility] UA Leuk Est 2+ (75 Zora/mcl)(A) Negative 07/21/2024 6:17 PM EDT [facility] UA Spec Grav 1.029 1.001 - 1.035 no units 07/21/2024 6:17 PM EDT [facility] Comment:Reference range leyla d for random specimens only. UA WBC 13(H) 0 - 4 /HPF 07/21/2024 6:17 PM EDT [facility] UA RBC 2 0 - 3 /HPF 07/21/2024 6:17 PM EDT [facility] UA Squam Epi 2+ /LPF 07/21/2024 6:17 PM EDT [facility] UA Mucus Trace /LPF 07/21/2024 6:17 PM EDT [facility] UA Bacteria Trace(A) Negative /HPF 07/21/2024 6:17 PM EDT [facility] Urine STRUCTURE OF URINARY TRACT PROPER / Unknown 07/21/2024 6:04 PM EDT 07/21/2024 6:09 PM EDT us Cat Jules MD URINE ORDERABLES Final Res ult [facility], [address] , [place] [address] * (ABNORMAL) C-REACTIVE PROTEIN (07/21/2024 5:42 PM EDT) Pathologist [facility] CRP 77.53(H) <=5.00 mg/L 07/21/2024 6:[address] [facility] [employer] Blood VENOUS BLOOD / Unknown Venipuncture / Unknown 07/21/2024 5:42 PM EDT 07/21/2024 5:51 PM EDT Cat Jules MD CHEMISTRY ORDERABLES Final Result [facility] [employer] Edition [address] , [place] [address] * (ABNORMAL) PROCALCITONIN (07/21/2024 5:42 PM EDT) [facility] Procalcitonin 0.50(H) <=0.49 ng/mL 07/21/2024 6:[address] [facility] [employer] Blood VENOUS BLOOD / Unknown Venipuncture / Unknown 07/21/2024 5:42 PM EDT 07/21/2024 5:[address] [facility] Listen Edition [facility] - 07/21/2024 6:35 PM EDT Procalcitonin <0.50 ng/mL: Procalcitonin levels below 0.50 ng/mL on the first day of ICU admission represent a low risk for progression to severe sepsis and/or septic shock Procalcitonin >=0.50 ng/mL and <=2.00 ng/mL: If the procalcitonin measurement is performed shortly after the systemic infection process has started (usually less than 6 hours), this value may still be low. As various non-infectious conditions are known to induce procalcitonin as well, procalcitonin levels between 0.50 ng/mL and 2.00 ng/mL should be reviewed carefully to take into account the specific clinical background and condition(s) of the patient. Procalcitonin >2.00 ng/mL: Procalcitonin levels above 2.00 ng/mL on the first day of ICU admission represent a high risk for progression to severe sepsis and/or septic shock. Cat Jules MD CHEMISTRY ORDERABLES Final Result Performing Organization Address [facility] Co de Phone Number [facility] [employer] [address] [facility], [place] [address] * LACTIC ACID (07/21/2024 5:42 PM EDT) Lactic Acid 1.2 0.5 - 1.9 mmol/L 07/21/2024 5:59 PM EDT [facility] Blood VENOUS BLOOD / Unknown Venipuncture / Unknown 07/21/2024 5:42 PM EDT 07/21/2024 5:45 PM EDT Cat Jules MD CHEMISTRY ORDERABLES Final Result Performing Organization Address [facility] de Phone Number [facility] [address] [place] [address] * XR CHEST AP PORTABLE (07/21/2024 5:33 PM EDT) Anatomical Region Laterality Modality Chest Radiographic Adenike ging 07/21/2024 5:33 PM EDT Impressions 07/21/2024 5:42 PM EDT No acute finding. - Note: Radiology results need to be interpreted within a comprehensive clinical context. If you have questions about the radiology report, please contact the office of the ordering clinician. Narrative 07/21/2024 5:42 PM EDT XR CHEST AP PORTABLE, 07/21/2024 5:33 PM CLINICAL HISTORY: -sepsis workup COMPARISON: X-ray 06/18/2024 PROCEDURE COMMENTS: AP portable technique. FINDINGS: Support devices: No visible support devices. Enlarged cardiomediastinal silhouette. Hypoinflated lungs. No active failure, pneumonia, or visible effusion. No visible pneumothorax. Procedure Note Mateusz Jackman MD - 07/21/2024 XR CHEST AP PORTABLE, 07/21/2024 5:33 PM CLINICAL HISTORY: -sepsis workup COMPARISON: X-ray 06/18/2024 PROCEDURE COMMENTS: AP portable technique. FINDINGS: Support devices: No visible support devices. Enlarged cardiomediastinal silhouette. Hypoinflated lungs. No activefailure, pneumonia, or visible effusion. No visible pneumothorax. IMPRESSION: No acute finding. - Note: Radiology results need to be interpreted within a comprehensiveclinical context. If you have questions about the radiology report, please contactthe office of the ordering clinician. us Cat Jules MD IMG DIAGNOSTIC IMAGING ORD ERABLES Final Result * CT LOWER EXTREMITY RIGHT WO CONTRAST (07/21/2024 5:27 PM EDT) Anatomical Region Laterality Modality Leg Computed Tomogra phy 07/21/2024 5:27 PM EDT Impressions 07/22/2024 7:45 AM EDT 1. Satisfactory alignment of the right hip arthroplasty. No convincing CT evidence of loosening or joint effusion. 2. Chronic stress shielding/stress fracture at the lateral cortex of the femoral diaphysis, similar to the July 2023 study without evidence of progression. - Note: Radiology results need to be interpreted within a comprehensive clinical context. If you have questions about the radiology report, please contact the office of the ordering clinician. Narrative 07/22/2024 7:[address] LOWER EXTREMITY RIGHT WO CONTRAST, 07/21/2024 5:27 PM CLINICAL HISTORY: -s/p R KEEGAN, c/b infection, c/f recurrence COMPARISON: 07/31/2023. PROCEDURE COMMENTS: Multidetector CT with multiplanar reconstructions per ordered protocol. Dose 1 : CT DLP Total : 4500.55 mGycm DLP Spiral Max : 2257.93 mGycm Maximum CTDI Vol : 29.24 mGy FINDINGS: There is localized cortical thickening along the lateral cortex of the proximal femoral diaphysis with subtle cortical break in this location similar to the previous study and indicative of a chronic stress fracture. There is no evidence of progression. This is best seen on coronal image 63. The right hip prosthesis is otherwise satisfactory in alignment. No convincing evidence of osteolysis or other evidence of loosening of the prosthesis. Evaluation for joint effusion is somewhat limited by metallic streak artifact. No obvious joint effusion visible. There is chronic lobulated, partially calcified density along the lateral margin of the proximal femoral prosthesis which was seen on the previous examination measuring approximately 8.5 x 2.1 x 6.2 cm. There is mild thickening/scarring noted along the surgical incision. No definitive organized fluid collection. Procedure Note Pamella Betts MD - 07/22/2024 CT LOWER EXTREMITY RIGHT WO CONTRAST, 07/21/2024 5:27 PM CLINICAL HISTORY: -s/p R KEEGAN, c/b infection, c/f recurrence COMPARISON: 07/31/2023. PROCEDURE COMMENTS: Multidetector CT with multiplanar reconstructionsper ordered protocol. Dose 1 : CT DLP Total : 4500.55 mGycm DLP Spiral Max : 2257.93 mGycm Maximum CTDI Vol : 29.24 mGy FINDINGS: There is localized cortical thickening along the lateral cortexof the proximal femoral diaphysis with subtle cortical break in this locationsimilar to the previous study and indicative of a chronic stress fracture. Thereis no evidence of progression. This is best seen on coronal image 63. The righthip prosthesis is otherwise satisfactory in alignment. No convincing evidenceof osteolysis or other evidence of loosening of the prosthesis. Evaluationfor joint effusion is somewhat limited by metallic streak artifact. No obviousjoint effusion visible. There is chronic lobulated, partially calcified densityalong the lateral margin of the proximal femoral prosthesis which was seen onthe previous examination measuring approximately 8.5 x 2.1 x 6.2 cm. There ismild thickening/scarring noted along the surgical incision. No definitiveorganized fluid collection. IMPRESSION: 1. Satisfactory alignment of the right hip arthroplasty. No convincingCT evidence of loosening or joint effusion. 2. Chronic stress shielding/stress fracture at the lateral cortex ofthe femoral diaphysis, similar to the July 2023 study without evidence of progression. - Note: Radiology results need to be interpreted within a comprehensiveclinical context. If you have questions about the radiology report, please contactthe office of the ordering clinician. us Cat Jules MD IMG CT ORDERABLES Final Re sult * CT ABDOMEN PELVIS WO ORAL OR IV CONTRAST (07/21/2024 5:27 PM EDT) Anatomical Region Laterality Modality Abdomen, Pelvis Computed Tomogra phy 07/21/2024 5:27 PM EDT Impressions 07/21/2024 5:40 PM EDT New pancolitis which is possibly infectious but is overall nonspecific. Small volume ascites. Chronic left ureteral calculus and left renal atrophy. - Note: Radiology results need to be interpreted within a comprehensive clinical context. If you have questions about the radiology report, please contact the office of the ordering clinician. Narrative 07/21/2024 5:[address] ABDOMEN AND PELVIS WITHOUT IV OR ORAL CONTRAST, 07/21/2024 5:27 PM CLINICAL HISTORY: -RLQ abdominal pain, leukocytosis. COMPARISON: CT 05/01/2024 PROCEDURE COMMENTS: Multidetector CT examination of the abdomen and pelvis without IV or oral contrast per protocol. Multiplanar reconstructions. Dose 1 : CT DLP Total : 4500.55 mGycm DLP Spiral Max : 2257.93 mGycm Maximum CTDI Vol : 29.24 mGy FINDINGS: LOWER THORAX: Right lower lobe atelectasis. ABDOMEN AND PELVIS: Throughout the entire colon, there is circumferential colonic wall thickening with surrounding inflammatory changes. These findings are most apparent in the cecum where the associated inflammatory changes surrounding the appendix which is otherwise nondilated. No convincing intramural pneumatosis. No focal fluid collection. Small volume ascites, particularly perihepatic. Liver, spleen, pancreas, and adrenal glands unremarkable. Suspect cholelithiasis, but without acute cholecystitis. Unchanged 8 mm calculus in the distal left ureter without upstream hydronephrosis, however there is chronic asymmetric left renal atrophy. No right hydronephrosis. Pericolonic inflammation but otherwise limited evaluation of the pelvic contents secondary streak artifact from the bilateral hip arthroplasties. Right hip/thigh findings are better described on the dedicated CT lower extremity. Procedure Note Mateusz Jackman MD - 07/21/2024 CT ABDOMEN AND PELVIS WITHOUT IV OR ORAL CONTRAST, 07/21/2024 5:27 PM CLINICAL HISTORY: -RLQ abdominal pain, leukocytosis. COMPARISON: CT 05/01/2024 PROCEDURE COMMENTS: Multidetector CT examination of the abdomen andpelvis without IV or oral contrast per protocol. Multiplanar reconstructions. Dose 1 : CT DLP Total : 4500.55 mGycm DLP Spiral Max : 2257.93 mGycm Maximum CTDI Vol : 29.24 mGy FINDINGS: LOWER THORAX: Right lower lobe atelectasis. ABDOMEN AND PELVIS: Throughout the entire colon, there is circumferential colonic wallthickening with surrounding inflammatory changes. These findings are most apparent inthe cecum where the associated inflammatory changes surrounding the appendixwhich is otherwise nondilated. No convincing intramural pneumatosis. No focalfluid collection. Small volume ascites, particularly perihepatic. Liver, spleen, pancreas, and adrenal glands unremarkable. Suspect cholelithiasis, but without acute cholecystitis. Unchanged 8 mm calculusin the distal left ureter without upstream hydronephrosis, however there ischronic asymmetric left renal atrophy. No right hydronephrosis. Pericolonic inflammation but otherwise limited evaluation of the pelviccontents secondary streak artifact from the bilateral hip arthroplasties. Righthip/thigh findings are better described on the dedicated CT lower extremity. IMPRESSION: New pancolitis which is possibly infectious but is overall nonspecific. Small volume ascites. Chronic left ureteral calculus and left renal atrophy. - Note: Radiology results need to be interpreted within a comprehensiveclinical context. If you have questions about the radiology report, please contactthe office of the ordering clinician. us Cat Jules MD IMG CT ORDERABLES Final Re sult * (ABNORMAL) BLOOD CULTURE RAGHAV GRAM POS (07/21/2024 4:58 PM EDT) BACILLUS CEREUS GROUP Not Detected Not Detected 07/22/2024 6:26 PM EDT [facility] BACILLUS SUBTILIS GROUP Not Detected Not Detected 07/22/2024 6:26 PM EDT [facility] CORYNEBACTERIUM SPECIES Not Detected Not Detected 07/22/2024 6:26 PM EDT [facility] ENTEROCOCCUS SPECIES Not Detected Not Detected 07/22/2024 6:26 PM EDT [facility] ENTEROCOCCUS FAECALIS Not Detected Not Detected 07/22/2024 6:26 PM EDT [facility] ENTEROCOCCUS FAECIUM Not Detected Not Detected 07/22/2024 6:26 PM EDT [facility] LACTOBACILLUS SPECIES Not Detected Not Detected 07/22/2024 6:26 PM EDT [facility] LISTERIA SPECIES Not Detected Not Detected 07/22/2024 6:26 PM EDT [facility] LISTERIA MONOCYTOGENES Not Detected Not Detected 07/22/2024 6:26 PM EDT [facility] MICROCOCCUS SPECIES Not Detected Not Detected 07/22/2024 6:26 PM EDT [facility] CUTIBACTERIUM ACNES (PROPIONIBACTERIUM ACNES) Not Detected Not Detected 07/22/2024 6:26 PM EDT [facility] STAPHYLOCOCCUS SPECIES Detected(AA) Not Detected 07/22/2024 6:26 PM EDT [facility] STAPHYLOCOCCUS AUREUS Not Detected Not Detected 07/22/2024 6:26 PM EDT [facility] STAPHYLOCOCCUS EPIDERMIDIS Not Detected Not Detected 07/22/2024 6:26 PM EDT [facility] STAPHYLOCOCCUS LUGDUNENSIS Not Detected Not Detected 07/22/2024 6:26 PM EDT [facility] STREPTOCOCCUS SPECIES Not Detected Not Detected 07/22/2024 6:26 PM EDT [facility] STREPTOCOCCUS AGALACTIAE (GROUP B) Not Detected Not Detected 07/22/2024 6:26 PM EDT [facility] STREPTOCOCCUS ANGINOSUS GROUP Not Detected Not Detected 07/22/2024 6:26 PM EDT [facility] STREPTOCOCCUS PNEUMONIAE Not Detected Not Detected 07/22/2024 6:26 PM EDT [facility] STREPTOCOCCUS PYOGENES (GROUP A) Not Detected Not Detected 07/22/2024 6:26 PM EDT [facility] mecA Not Detected. Methicillin Resistance due to other mechanisms cannot be excluded. 07/22/2024 6:26 PM EDT [facility] mecC Not Detected. Methicillin Resistance due to other mechanisms cannot be excluded. 07/22/2024 6:26 PM EDT [facility] Blood VENOUS BLOOD / Unknown Venipuncture / Unknown 07/21/2024 4:58 PM EDT 07/21/2024 5:02 PM EDT us Cat Jules MD MICROBIOLOGY - GENERAL ORD ERABLES Final Result [facility] [address] [facility] [facility] , [place] [address] * BLOOD CULTURE (NO STAIN) (07/21/2024 4:58 PM EDT) Culture Result No Growth at 120 hours. BLOOD CULTURE (NO STAIN) 07/26/2024 6:00 PM EDT [facility] Blood VENOUS BLOOD / Unknown Venipuncture / Unknown 07/21/2024 4:58 PM EDT 07/21/2024 5:02 PM EDT Cat Jules MD MICROBIOLOGY - GENERAL ORD ERABLES Final Result [facility] [address] [facility] , [place] [address] * (ABNORMAL) BLOOD CULTURE (NO STAIN) (07/21/2024 4:58 PM EDT) Culture Result Positive Growth(AA) BLOOD CULTURE (NO STAIN) 07/26/2024 11:54 AM EDT [facility] Culture Result Growth of Staphylococcus xylosus SUSCEPTIBI LITY RESULT 07/26/2024 11:54 AM EDT [facility] Blood VENOUS BLOOD / Unknown Venipuncture / Unknown 07/21/2024 4:58 PM EDT 07/21/2024 5:02 PM EDT Narrative Organism Antibiotic Method Susceptibility Staphylococcus xylosus Ampicillin SUSCEPTIBILITY RESULT Staphylococcus xylosus Cefazolin SUSCEPTIBILITY RESULT Staphylococcus xylosus Ceftaroline SUSCEPTIBILITY RESULT Staphylococcus xylosus Ceftriaxone SUSCEPTIBILITY RESULT Staphylococcus xylosus Chloramphenicol SUSCEPTIBILITY RESULT <=8 ug/mL: Susceptible Staphylococcus xylosus Ciprofloxacin SUSCEPTIBILITY RESULT <=1 ug/mL: Susceptible Staphylococcus xylosus Clindamycin SUSCEPTIBILITY RESULT <=0.25 ug/mL: Susceptible Staphylococcus xylosus Daptomycin SUSCEPTIBILITY RESULT <=0.25 ug/mL: Susceptible Staphylococcus xylosus Erythromycin SUSCEPTIBILITY RESULT <=0.25 ug/mL: Susceptible Staphylococcus xylosus Gentamicin SUSCEPTIBILITY RESULT <=1 ug/mL: Susceptible Staphylococcus xylosus Gentamicin synergy SUSCEPTIBILITY RESULT Staphylococcus xylosus Levofloxacin SUSCEPTIBILITY RESULT <=0.5 ug/mL: Susceptible Staphylococcus xylosus Linezolid SUSCEPTIBILITY RESULT 1 ug/mL: Susceptible Staphylococcus xylosus Moxifloxacin SUSCEPTIBILITY RESULT <=0.25 ug/mL: Susceptible Staphylococcus xylosus Nitrofurantoin SUSCEPTIBILITY RESULT Staphylococcus xylosus Oxacillin SUSCEPTIBILITY RESULT <=0.25 ug/mL: Susceptible Staphylococcus xylosus Penicillin SUSCEPTIBILITY RESULT <=0.03 ug/mL: Resistant Staphylococcus xylosus Rifampin SUSCEPTIBILITY RESULT <=1 ug/mL: Susceptible Staphylococcus xylosus Streptomycin synergy SUSCEPTIBILITY RESULT Staphylococcus xylosus Synercid SUSCEPTIBILITY RESULT Staphylococcus xylosus Tetracycline SUSCEPTIBILITY RESULT >8 ug/mL: Resistant Staphylococcus xylosus Tigecycline SUSCEPTIBILITY RESULT Staphylococcus xylosus Trimethoprim/Sulfameth oxazole SUSCEPTIBILITY RESULT <=0.5/9.5 ug/mL: Susceptible Staphylococcus xylosus Vancomycin SUSCEPTIBILITY RESULT 1 ug/mL: Susceptible Comment:Rifampin and Gentami amanda should not be used alone for antimicrobial therapy. For methicillin resistant staphylococci, ciprofloxacin should also not be used alone. Cat Jules MD MICROBIOLOGY - GENERAL ORD ERABLES Final Result Performing Organization Address [facility]/ZIP Co de Phone Number [employer] [address] , [place] [address] * (ABNORMAL) SEDIMENTATION RATE AUTOMATED (07/21/2024 4:01 PM EDT) [facility] Signature Sed Rate 58(H) 0 - 20 mm/hr 07/21/2024 4:51 PM EDT [employer] Blood VENOUS BLOOD / Unknown Venipuncture / Unknown 07/21/2024 4:01 PM EDT 07/21/2024 4:07 PM EDT Cta Jules MD HEMATOLOGY ORDERABLES Jaimee l Result Performing Organization Address City/[facility]/ZIP Co de Phone Number [employer] [address] , [place] [address] * (ABNORMAL) GLUCOSE METER POC (07/21/2024 4:01 PM EDT) Glucose Meter POC 129(H) 70 - 100 mg/dL 07/21/2024 4:03 PM EDT [facility] Sample Type Venous 07/21/2024 4:03 PM EDT [facility] Patient Status Non-Critica l Patient 07/21/2024 4:03 PM EDT [facility] Blood BLOOD SPECIMEN / Unknown 07/21/2024 4:01 PM EDT 07/21/2024 4:03 PM EDT us Lab Test POINT OF CARE TEST ORDERABLES Fi nal Result [facility] [address] [place] [address] * (ABNORMAL) COMPREHENSIVE METABOLIC PANEL (07/21/2024 4:01 PM EDT) Sodium 136 136 - 145 mmol/L 07/21/2024 4:24 PM EDT [facility] Potassium 4.8 3.5 - 5.0 mmol/L 07/21/2024 4:24 PM EDT [facility] Chloride 103 98 - 107 mmol/L 07/21/2024 4:24 PM EDT [facility] Total CO2 19(L) 22 - 29 mmol/L 07/21/2024 4:24 PM EDT [facility] Anion Gap 14 7 - 16 mmol/L 07/21/2024 4:24 PM EDT [facility] Calcium 8.9 8.8 - 10.4 mg/dL 07/21/2024 4:24 PM EDT [facility] Glucose Lvl 139(H) 70 - 99 mg/dL 07/21/2024 4:24 PM EDT [facility] BUN 32(H) 8 - 23 mg/dL 07/21/2024 4:24 PM EDT [facility] Creatinine 2.08(H) 0.67 - 1.30 mg/dL 07/21/2024 4:24 PM EDT [facility] Albumin 3.5 3.2 - 4.6 gm/dL 07/21/2024 4:24 PM EDT [facility] Total Protein 6.6 6.4 - 8.3 gm/dL 07/21/2024 4:24 PM EDT [facility] Bili Total <0.2(L) 0.2 - 1.4 mg/dL 07/21/2024 4:24 PM EDT [facility] ALT 8 <=41 U/L 07/21/2024 4:24 PM EDT [facility] AST 11 <=40 U/L 07/21/2024 4:24 PM EDT [facility] Alk Phos 96 40 - 129 U/L 07/21/2024 4:24 PM EDT [facility] eGFR (CKD-EPIcr 2020) 34(L) >=60 mL/min/1.7 3 m2 07/21/2024 4:24 PM EDT [facility] Comment:Estimated GFR was ca lculated using the CKD-EPIcr (2020) equation refit without race. The equation is recommended by the [employer] - [place] [employer]ph[employer] Task Force. Blood VENOUS BLOOD / Unknown Venipuncture / Unknown 07/21/2024 4:01 PM EDT 07/21/2024 4:07 PM EDT us Cat Jules MD CHEMISTRY ORDERABLES Final Result [place] [id number] * (ABNORMAL) CBC WITH DIFF (07/21/2024 4:01 PM EDT) WBC 18.4(H) 3.7 - 10.3 x10(3)/mc L 07/21/2024 5:45 PM EDT [facility] RBC 4.20(L) 4.60 - 6.10 x10(6)/mc L 07/21/2024 5:45 PM EDT [facility] Hgb 11.8(L) 13.7 - 17.5 g/dL 07/21/2024 5:[address] [facility] Hct 37.3(L) 40.0 - 51.0 % 07/21/2024 5:45 PM EDT [facility] MCV 88.8 80.0 - 100.0 fL 07/21/2024 5:45 PM EDT [facility] MCH 28.1 26.0 - 34.0 pg 07/21/2024 5:45 PM EDT [facility] MCHC 31.6 30.7 - 35.5 g/dL 07/21/2024 5:45 PM EDT [facility] RDW 15.3(H) <=14.9 % 07/21/2024 5:45 PM EDT [facility] Platelet 321 155 - 369 x10(3)/mc L 07/21/2024 5:45 PM EDT [facility] MPV 9.7 8.8 - 12.5 fL 07/21/2024 5:45 PM EDT [facility] Segs 38 % 07/21/2024 5:45 PM EDT [facility] Lymphs 48 % 07/21/2024 5:45 PM EDT [facility] Monos 8 % 07/21/2024 5:45 PM EDT [facility] Eos 3 % 07/21/2024 5:45 PM EDT [facility] Baso 2 % 07/21/2024 5:45 PM EDT [facility] Atyp Lymph 1 <=10 % 07/21/2024 5:45 PM EDT [facility] Neut # 7.0(H) 1.6 - 6.1 x10(3)/mc L 07/21/2024 5:45 PM EDT [facility] Lymph # 9.0(H) 1.2 - 3.9 x10(3)/mc L 07/21/2024 5:45 PM EDT [facility] Tift # 1.5(H) 0.3 - 0.9 x10(3)/mc L 07/21/2024 5:45 PM EDT [facility] Eos # Manual 0.6(H) 0.0 - 0.5 x10(3)/mc L 07/21/2024 5:45 PM EDT [facility] Baso # Manual 0.4(H) 0.0 - 0.1 x10(3)/mc L 07/21/2024 5:45 PM EDT [facility] Aniso Slight 07/21/2024 5:45 PM EDT [facility] Polychrom Slight 07/21/2024 5:45 PM EDT [facility] Hypochrom Slight 07/21/2024 5:45 PM EDT [facility] [facility] Occasional 07/21/2024 5:45 PM EDT [facility] Blood VENOUS BLOOD / Unknown Venipuncture / Unknown 07/21/2024 4:01 PM EDT 07/21/2024 4:07 PM EDT us Cat Jules MD HEMATOLOGY ORDERABLES Jaimee rodriges Result [facility] [address] [facility], [address] [place] [id number] [facility] [address] [place], [place] [phone] documented in this encounter Visit Diagnoses Diagnosis ZAC (acute kidney injury)- Primary Acute kidney failure, unspecified ZAC (acute kidney injury) Acute kidney failure, unspecified Pancolitis (HCC) [place] ulcerative (chronic) colitis Stage 3 chronic kidney disease (HCC) Type 2 diabetes mellitus with hyperglycemia (HCC) Type II or unspecified type diabetes mellitus without mention of complication, not stated as uncontrolled Hypertension associated with diabetes (HCC) Type II or unspecified type diabetes mellitus with other specified manifestations, not stated as uncontrolled Colitis Other and unspecified noninfectious gastroenteritis and colitis Diarrhea Obesity, Class III, BMI 40-49.9 (morbid obesity) Morbid obesity C. difficile colitis Intestinal infection due to clostridium difficile documented in this encounter Admitting Diagnoses Diagnosis ZAC (acute kidney injury) Acute kidney failure, unspecified documented in this encounter Administered Medications Inactive Administered Medications - up to 1 most recent administrations Medication Order MAR Action Action Date Dose Rate Site 0.9 % NaCl infusion Intravenous, at 100 mL/hr, CONTINUOUS, Starting on Sat07/22/24 at 0000, Until Sat07/22/24 at 2359 Rate/Dose Verify 07/22/2024 2:21 PM EDT 100 mL/hr calcium carbonate (TUMS) chewable tablet 500-1,000 mg 500-1,000 mg, Oral, EVERY 4 HOURS PRN, Starting on Sat07/22/24 at 1759, Until Sat07/26/24 at 2006, Indigestion, Max of 16 tablets per day. Given 07/26/2024 9:16 AM EDT 1,000 mg DAPTOmycin (CUBICIN) injection 750 mg 750 mg (rounded from 769.8 mg = 6 mg/kg 128.3 kg), Intravenous, DAILY, 14 doses, First dose on Sat07/23/24 at 1330, Last dose on Sat08/05/24 at 0900, Administer IV Push over 2 minutes.Incompatible with dextrose. Flush with saline; do not use dextrose containing fluid to flush line., Reasons for using DAPTOmycin in this patient (if none met, consider ordering vancomycin instead). DAPTOmycin is not to be used solely for convenience of dosing or monitoring. For mild or moderate infections, consider linezolid instead of DAPTOmycin. Ordered by Infectious Disease physician, Reason for Therapy: Infection Documented, Indication: Bacteremia Given 07/26/2024 9:12 AM EDT 750 mg dextrose 50 % solution 25 mL 25 mL, Intravenous, PRN, Starting on Sat07/21/24 at 2009, Until Sat07/26/24 at 2005, Low blood sugar, If FSBS less than 70 mg/dl and patient cannot take orally, Check FSBS every 15 minutes and repeat 25 mL of D50 IV push and notify physician if FSBS less than 70 mg/dL [facility]ESICANT enoxaparin (LOVENOX) injection 40 mg 40 mg, Subcutaneous, 2 TIMES DAILY, First dose on Sat07/22/24 at 2100, Until Discontinued Given 07/26/2024 9:12 AM EDT 40 mg Abdominal Tissue glucagon (GLUCAGEN) injection 1 mg 1 mg, Intramuscular, PRN, Starting on Sat07/21/24 at 2009, Until Sat07/26/24 at 2005, Low blood sugar, If FSBS less than 70 mg/dl, patient cannot take orally and without IV access, If patient is without IV access, give Glucagon 1 mg Intramuscularly, insert IV and call physician. insulin aspart U-100 (NovoLOG) injection 1-5 Units 1-5 Units, Subcutaneous, 4 TIMES DAILY BEFORE MEALS & NIGHTLY, First dose (after last modification) on Sat07/24/24 at 0800, Until Discontinued, Low dose algorithm: FSBS Correction NPO/Bedtime 121-149 0 units 0 units 150-199 1 units 0 units 200-250 2 units 1 units 251-300 3 units 1 units 301-350 4 units 2 units Greater than 350___5 units call MD _3 units call MD Notify physician if FSBS less than 50 or greater than 350 Do not use NPO dosing If patient receiving TPN or tube feeds. Correction insulin doses must be by at least 3 hours. Waste Sort Code = BLACK [employer]ardous Waste Container morphine injection 2-4 mg 2-4 mg, Intravenous, ONCE PRN, 1 dose, Starting on Sat07/22/24 at 0315, Until Sat07/22/24 at 0337, Pain Given 07/22/2024 3:37 AM EDT 2 mg morphine injection 2-4 mg 2-4 mg, Intravenous, EVERY 4 HOURS PRN, Starting on Sat07/22/24 at 1223, Until Sat07/26/24 at 2005, Pain Unrelieved by Oral Opioid Therapy, May alternate po & iv pain meds Given 07/26/2024 9:16 AM EDT 4 mg oxyCODONE-acetaminoph en (PERCOCET) 10-325 mg per tablet 1 Tablet 1 Tablet, Oral, EVERY 6 HOURS PRN, Starting on Sat07/21/24 at 2228, Until Sat07/26/24 at 2005, Pain, May alternate po & iv pain meds *Maximum adult dose of acetaminophen is 4000 mg from all sources in 24 hours.* Given 07/26/2024 11:23 AM EDT 1 Tablet pantoprazole (PROTONIX) tablet 40 mg 40 mg, Oral, DAILY, First dose on Sat07/22/24 at 1930, Until Discontinued, Do not crush or chew Given 07/26/2024 9:12 AM EDT 40 mg piperacillin-tazobact am in dextrose (ZOSYN) IVPB 3.375 g 3.375 g, Intravenous, ONCE, 1 dose, On Sat07/21/24 at 1715, Administer over 30 Minutes, Infuse via 30 minute infusion option in Alaris pump. VESICANT , Reason for Therapy: Infection Documented, Indication: Skin/soft tissue IV Started 07/21/2024 5:55 PM EDT 3.375 g 100 mL/hr piperacillin-tazobact am in dextrose (ZOSYN) IVPB 3.375 g 3.375 g, Intravenous, EVERY 8 HOURS SCHEDULED (3 times per day), 21 doses, First dose on Sat07/21/24 at 2200, Last dose on Sat07/28/24 at 1400, Administer over 4 Hours, piperacillin-tazobact am EXTENDED INFUSION - Administer over 4 hours VESICANT , Reason for Therapy: Infection Documented, Indication: Skin/soft tissue Rate/Dose Verify 07/23/2024 8:12 AM EDT 12.5 mL/hr sodium chloride 0.9 % 1,000 mL IV bolus Intravenous, ONCE, 1 dose, On Sat07/21/24 at 1800, at 983.6 mL/hr IV Started 07/21/2024 7:22 PM EDT 983.6 mL/hr sodium chloride 0.9% IV line flush 20-50 mL 20-50 mL, Intravenous, at 150-600 mL/hr, PRN, Starting on Sat07/21/24 at 2329, Until Sat07/26/24 at 2005, Line Care, Flush with a minimum of 20 mL after IVPB to insure complete administration of the dose. May use the saline infusion to back flush IVPB tubing as needed. IV Restarted 07/23/2024 10:26 AM EDT 150 mL/hr sodium chloride 0.9% syringe Intravenous, EVERY 12 HOURS SCHEDULED (2 times per day), First dose on Sat07/21/24 at 2100, Until Discontinued, Flush with 3-5 mL saline for PERIPHERAL saline lock maintenance. Given 07/26/2024 9:12 AM EDT 10 mL sodium chloride 0.9% syringe Intravenous, PRN, Starting on Sat07/21/24 at 2329, Until Sat07/26/24 at 2005, Line Care, Flush with 5-10 mL saline pre/post IVP, and 5 mL prior to IVPB or blood product administration. Given 07/24/2024 11:55 PM EDT 10 mL sterile water injection 1 mL 1 mL, Injection, PRN, Starting on Sat07/21/24 at 2009, Until Sat07/26/24 at 2005, Use for drug dilution, Use to dilute and administer glucagon injection tiZANidine (ZANAFLEX) tablet 4 mg 4 mg, Oral, EVERY 8 HOURS PRN, Starting on Sat07/21/24 at 2228, Until Sat07/26/24 at 2005, Muscle spasms Given 07/22/2024 3:45 AM EDT 4 mg vancomycin (VANCOCIN) 2,000 mg in sodium chloride 0.9 % 550 mL IVPB 2,000 mg, Intravenous, ONCE, 1 dose, On Sat07/21/24 at 1715, Administer over 120 Minutes, VESICANT , Reason for Therapy: Infection Documented, Indication: Skin/soft tissue IV Started 07/21/2024 6:39 PM EDT 2,000 mg 275 mL/hr vancomycin (VANCOCIN) 2,000 mg in sodium chloride 0.9 % 550 mL IVPB 2,000 mg (rounded from 1,924.5 mg = 15 mg/kg 128.3 kg), Intravenous, ONCE, 1 dose, On Sat07/22/24 at 1100, Administer over 120 Minutes, VESICANT , Reason for Therapy: Infection Documented, Indication: Other, Reason: h/o prosthetic joint infection IV Restarted 07/22/2024 2:50 PM EDT 200 mL/hr vancomycin (VANCOCIN) capsule 125 mg 125 mg, Oral, EVERY 6 HOURS SCHEDULED (4 times per day), 40 doses, First dose on Sat07/22/24 at 1800, Last dose on Sat08/01/24 at 1200, Reason for Therapy: Infection Documented, Indication: Clostridium difficile Given 07/26/2024 11:23 AM EDT 125 mg documented in this encounter Discontinued Medications Medication Sig Discontinue Reason Start Date End Da te potassium chloride (KLOR-CON 10) 10 mEq Oral Tablet Sustained Release Take 1 Tablet by mouth daily. Stop Taking at Discharge 06/18/2024 07/26/2024 documented as of this encounter Active and Recently Administered Medications Times are shown in EDT. Scheduled Medication Order 07/24/2024 07/25/2024 07/26/2024 DAPTOmycin (CUBICIN) injection 750 mg 750 mg (rounded from 769.8 mg = 6 mg/kg 128.3 kg), Intravenous, DAILY, 14 doses, First dose on Lidia 07/23/24 at 1330, Last dose on Sat08/05/24 at 0900, Administer IV Push over 2 minutes.Incompatible with dextrose. Flush with saline; do not use dextrose containing fluid to flush line., Reasons for using DAPTOmycin in this patient (if none met, consider ordering vancomycin instead). DAPTOmycin is not to be used solely for convenience of dosing or monitoring. For mild or moderate infections, consider linezolid instead of DAPTOmycin. Ordered by Infectious Disease physician, Reason for Therapy: Infection Documented, Indication: Bacteremia 917 (Given - Provider: Francoise Uriostegui, DAVID) 835 (Given - Provider: Francoise Uriostegui RN) 911 (Given - Provider: Vianney Doyle, DAVID) enoxaparin (LOVENOX) injection 40 mg 40 mg, Subcutaneous, 2 TIMES DAILY, First dose on Sat07/22/24 at 2100, Until Discontinued 917 (Given - Provider: Francoise Uriostegui RN)2109 (Given - Provider: Nenita Hernandez RN) 835 (Given - Provider: Francoise Uriostegui RN)2029 (Given - Provider: Tanya Goodman RN) 911 (Given - Provider: Vianney Doyle, DAVID) insulin aspart U-100 (NovoLOG) injection 1-5 Units 1-5 Units, Subcutaneous, 4 TIMES DAILY BEFORE MEALS & NIGHTLY, First dose (after last modification) on Sat07/24/24 at 0800, Until Discontinued, Low dose algorithm: FSBS Correction NPO/Bedtime 121-149 0 units 0 units 150-199 1 units 0 units 200-250 2 units 1 units 251-300 3 units 1 units 301-350 4 units 2 units Greater than 350___5 units call MD _3 units call MD Notify physician if FSBS less than 50 or greater than 350 Do not use NPO dosing If patient receiving TPN or tube feeds. Correction insulin doses must be by at least 3 hours. Waste Sort Code = BLACK [employer] Waste Container 0800 (Not Given - Provider: Francoise Uriostegui RN - Reason: Order parameters not met)1200 (Not Given - Provider: Francoise Uriostegui RN - Reason: Order parameters not met)1800 (Not Given - Provider: Francoise Uriostegui RN - Reason: Order parameters not met)2100 (Not Given - Provider: Nenita Hernandez RN - Reason: Order parameters not met) 0800 (Not Given - Provider: Francoise Uriostegui RN - Reason: Order parameters not met)1200 (Not Given - Provider: Francoise Uriostegui RN - Reason: Order parameters not met)1800 (Not Given - Provider: Francoise Uriostegui RN - Reason: Order parameters not met)2238 (Not Given - Provider: Tanya Goodman RN - Reason: Order parameters not met) 0904 (Not Given - Provider: CARIDAD Warner III - Reason: Order parameters not met)1123 (Not Given - Provider: Vianney Doyle RN - Reason: Order parameters not met) pantoprazole (PROTONIX) tablet 40 mg 40 mg, Oral, DAILY, First dose on Sat07/22/24 at 1930, Until Discontinued, Do not crush or chew 0918 (Given - Provider: Francoise Uriostegui RN) 0836 (Given - Provider: Francoise Uriostgeui RN) 0912 (Given - Provider: Vianney Doyle RN) sodium chloride 0.9% syringe Intravenous, EVERY 12 HOURS SCHEDULED (2 times per day), First dose on Sat07/21/24 at 2100, Until Discontinued, Flush with 3-5 mL saline for PERIPHERAL saline lock maintenance. 0918 (Given - Provider: Francoise Uriostegui RN)2109 (Given - Provider: Nenita Hernandez RN) 0836 (Given - Provider: Francoise Uriostegui RN)2030 (Given - Provider: Tanya Goodman, DAVID) 0912 (Given - Provider: Vianney Doyle, DAVID) vancomycin (VANCOCIN) capsule 125 mg 125 mg, Oral, EVERY 6 HOURS SCHEDULED (4 times per day), 40 doses, First dose on Sat07/22/24 at 1800, Last dose on Sat08/01/24 at 1200, Reason for Therapy: Infection Documented, Indication: Clostridium difficile 0014 (Given - Provider: Nenita Hernandez RN)0548 (Given - Provider: Nenita Hernandez RN)1254 (Given - Provider: Francoise Uriostegui RN)1705 (Given - Provider: Francoise Uriostegui RN)2355 (Given - Provider: Nenita Hernandez RN) 0547 (Given - Provider: Nenita Hernandez RN)1111 (Given - Provider: Francoise Uriostegui RN)1722 (Given - Provider: Francoise Uriostegui RN)2320 (Given - Provider: Tanya Goodman RN) 0528 (Given - Provider: Tanya Goodman, DAVID)1123 (Given - Provider: Vianney Doyle, DAVID) PRN Medication Order 07/24/2024 07/25/2024 07/26/2024 calcium carbonate (TUMS) chewable tablet 500-1,000 mg 500-1,000 mg, Oral, EVERY 4 HOURS PRN, Starting on Sat07/22/24 at 1759, Until Sat07/26/24 at 2005, Indigestion, Max of 16 tablets per day. 0441 (Given - Provider: Nenita Hernandez RN)1136 (Given - Provider: Francoise Uriostegui RN)2355 (Given - Provider: Nenita Hernandez RN) 0448 (Given - Provider: Nenita Hernandez RN)1115 (Given - Provider: Francoise Uriostegui RN)1515 (Given - Provider: Francoise Uriostegui RN)2327 (Given - Provider: Tanya Goodman, DAVID) 0531 (Given - Provider: Tanya Goodman, DAVID)0916 (Given - Provider: Vianney Doyle, DAVID) dextrose 50 % solution 25 mL 25 mL, Intravenous, PRN, Starting on Sat07/21/24 at 2009, Until Sat07/26/24 at 2005, Low blood sugar, If FSBS less than 70 mg/dl and patient cannot take orally, Check FSBS every 15 minutes and repeat 25 mL of D50 IV push and notify physician if FSBS less than 70 mg/dL VESICANT glucagon (GLUCAGEN) injection 1 mg(Linked Group 1) 1 mg, Intramuscular, PRN, Starting on Sat07/21/24 at 2010, Until Sat07/26/24 at 2005, Low blood sugar, If FSBS less than 70 mg/dl, patient cannot take orally and without IV access, If patient is without IV access, give Glucagon 1 mg Intramuscularly, insert IV and call physician. morphine injection 2-4 mg 2-4 mg, Intravenous, EVERY 4 HOURS PRN, Starting on Sat07/22/24 at 1223, Until Sat07/26/24 at 2005, Pain Unrelieved by Oral Opioid Therapy, May alternate po & iv pain meds 0441 (Given - Provider: Nenita Hernandez RN)0917 (Given - Provider: Francoise Uriostegui RN)1350 (Given - Provider: Francoise Uriostegui RN)1755 (Given - Provider: Francoise Uriostegui RN)2356 (Given - Provider: Nenita Hernandez RN) 1115 (Given - Provider: Francoise Uriostegui RN)1515 (Given - Provider: Francoise Uriostegui RN)2027 (Given - Provider: Tanya Goodman RN) 0916 (Given - Provider: Vianney Doyle, DAVID) oxyCODONE-acetaminophen (PERCOCET) 10-325 mg per tablet 1 Tablet 1 Tablet, Oral, EVERY 6 HOURS PRN, Starting on Sat07/21/24 at 2228, Until Sat07/26/24 at 2005, Pain, May alternate po & iv pain meds *Maximum adult dose of acetaminophen is 4000 mg from all sources in 24 hours.* 0014 (Given - Provider: Nenita Hernandez RN)2110 (Given - Provider: Nenita eHrnandez RN) 0448 (Given - Provider: Nenita Hernandez RN)1724 (Given - Provider: Francoise Uriostegui RN)2326 (Given - Provider: Tanya Goodman, DAVID) 0530 (Given - Provider: Tanya Goodman RN)1123 (Given - Provider: Vianney Doyle RN) sodium chloride 0.9% IV line flush 20-50 mL 20-50 mL, Intravenous, at 150-600 mL/hr, PRN, Starting on Sat07/21/24 at 2329, Until Sat07/26/24 at 2005, Line Care, Flush with a minimum of 20 mL after IVPB to insure complete administration of the dose. May use the saline infusion to back flush IVPB tubing as needed. sodium chloride 0.9% syringe Intravenous, PRN, Starting on Sat07/21/24 at 2329, Until Sat07/26/24 at 2005, Line Care, Flush with 5-10 mL saline pre/post IVP, and 5 mL prior to IVPB or blood product administration. 4601 (Given - Provider: Nenita Hernandez, DAVID)3534 (Given - Provider: Nenita Hernandez RN) sterile water injection 1 mL(Linked Group 1) 1 mL, Injection, PRN, Starting on Sat07/21/24 at 2009, Until Sat07/26/24 at 2005, Use for drug dilution, Use to dilute and administer glucagon injection tiZANidine (ZANAFLEX) tablet 4 mg 4 mg, Oral, EVERY 8 HOURS PRN, Starting on Sat07/21/24 at 2228, Until Sat07/26/24 at 2005, Muscle spasms Linked Groups Order Group 1: glucagon (GLUCAGEN) injection 1 mgJump to med 1 mg, Intramuscular, PRN, Starting on Sat07/21/24 at 2009, Until Sat07/26/24 at 2005, Low blood sugar, If FSBS less than 70 mg/dl, patient cannot take orally and without IV access, If patient is without IV access, give Glucagon 1 mg Intramuscularly, insert IV and call physician. And sterile water injection 1 mLJump to med 1 mL, Injection, PRN, Starting on Sat07/21/24 at 2009, Until Sat07/26/24 at 2005, Use for drug dilution, Use to dilute and administer glucagon injection documented in this encounter Orders Medications Ordered That Denny ht Not Have Been Administered Count Last Ordered Date First Ordered Date insulin aspart U-100 (NovoLO G) injection 1-5 Units 2 07/24/2024 07/21/2024 vancomycin (VANCOCIN) 2,000 mg in sodium chloride 0.9 % 550 mL IVPB 1 07/22/2024 vancomycin intermittent dosing 2 07/22/2024 07/21/2024 dextrose 50 % solution 25 mL 1 07/21/2024 glucagon (GLUCAGEN) injection 1 mg 1 2024 sodium chloride 0.9% IV line flush 50 mL 1 07/21/2024 sodium chloride 0.9% syringe 1 07/21/2024 sodium chloride 0.9% syringe 5-10 mL 1 07/12 sterile water injection 1 mL 1 07/21/2024 Nursing Count Last Ordered Date First Orde red Date BLOOD GLUCOSE 1 07/21/2024 Consult Count Last Ordered Date First Orde red Date HOME HEALTH ORDERS (FACE TO FACE ENCOUNTER) 1 07/24/2024 IP CONSULT TO PHARMACY 1 07/21/2024 Admission Count Last Ordered Date First Orde red Date ADMIT 2 07/23/2024 07/21/2024 Discharge Count Last Ordered Date First Orde red Date DISCHARGE PATIENT 1 07/26/2024 documented in this encounter Additional Health Concerns Infection Onset Date Last Indicated Resolved Time R/O C-Diff 07/22/2024 07/22/2024 07/22/2024 1:25 PM EDT C-diff 07/22/2024 07/22/2024 Assessment Noted Time A fall risk assessment has been complete d for the patient 01/06/2024 10:53 AM EST documented as of this encounter 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
--- OUTSIDE RECORDS SUMMARY | 2024-07-30 20:00 | XMS_ITS | Clinical Summary ---
Author Organization Unknown Care Team Providers Care Epitaxial Reactor Operator Name Role Phone STUART PAREDES Unavailable Malika CHACON RN, KAYLAN Unavailable Unavailable TOMVANDANAIN ESL PROFESSOR, JAVI Unavailable Unavailable HICKEY PT, TOMAS Unavailable Unavailable LEDUZMAE AERIAL APPLICATOR PILOT, NORMA Unavailable Unavailable Payers Payer Name Policy Type Policy Number Effective Date Expira tion Date MEDICARE.NARCISA.[facility] [id number] Problems Condition Name Condition Details Condition Category Status Onset Date Resolution Date Last Treatment Date Treating Clinician Comments INFCT FOL A PROC, SUPERFIC INCISIONAL SURGICAL SITE, SUBS Active 05-15 00:00: 00 ENCOUNTER FOR ADJUSTMENT AND MANAGEMENT OF VAD Active 05-15 00:00: 00 PAIN DUE TO INTERNAL ORTHOPEDIC PROSTH DEV/GRFT, SUBS Active 05-15 00:00: 00 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 KDNY Active 03-26 00:00: 00 HEART FAILURE, UNSPECIFIED Active 03-26 00:00: 00 TYPE 2 DIABETES MELLITUS W DIABETIC CHRONIC KIDNEY DISEASE Active 03-26 00:00: 00 CHRONIC KIDNEY DISEASE, STAGE 3B Active 03-26 00:00: 00 ANEMIA IN CHRONIC KIDNEY DISEASE Active 03-26 00:00: 00 OBSTRUCTIVE SLEEP APNEA (ADULT) (PEDIATRIC) Active 03-26 00:00: 00 HYPERLIPIDEM IA, UNSPECIFIED Active 03-26 00:00: 00 ELEVATED WHITE BLOOD CELL COUNT, UNSPECIFIED Active 03-26 00:00: 00 CONSTIPATION , UNSPECIFIED Active 03-26 00:00: 00 UNSPECIFIED OSTEOARTHRIT IS, UNSPECIFIED SITE Active 03-26 00:00: 00 BENIGN PROSTATIC HYPERPLASIA WITHOUT LOWER URINRY TRACT SYMP Active 03-26 00:00: 00 MORBID (SEVERE) OBESITY DUE TO EXCESS CALORIES Active 03-26 00:00: 00 MCC (CURRENT) USE OF ANTICOAGULAN TS Active 03-26 00:00: 00 MCC (CURRENT) USE OF ORAL HYPOGLYCEMIC DRUGS Active 03-26 00:00: 00 PRESENCE OF ARTIFICIAL HIP JOINT, BILATERAL Active 03-26 00:00: 00 DEPENDENCE ON SUPPLEMENTAL OXYGEN Active 04-03 00:00: 00 Allergies, Adverse Reactions, Alerts Allergy Name Allergy Type Status Severity Reaction(s) Onset Date Inactive Date Treating Clinician Comments EMPAGLIFOZIN Propensity to adverse reactions Active 04-03 17:07: 39 Medications Ordered Medication Name Filled Medication Name Start Date Stop Date Current Medication? Ordering Clinician Indication Dosage Frequency Signature (SIG) Comments Components oxycodone 5 mg tablet 03-26 00:00: 00 06-17 23:59 :00 No [id number] PAIN 1 tablet EVERY 6 HOURS 1 tablet EVERY 6 HOURS (route: oral) Med Classific ation: Analgesic , Anti-infl ammatory or Antipyret ic oxycodone-a cetaminophe n 10 mg-325 mg tablet 03-10 00:00: 00 Yes [id number] PAIN 1 tablet EVERY 8 HOURS NEEDED 1 tablet EVERY 8 HOURS NEEDED (route: oral) Med Classific ation: Analgesic , Anti-infl ammatory or Antipyret ic tizanidine 4 mg tablet - 00:00: 00 04-03 00:00 :00 No [id number] Per instruc tions 3 TIMES A DAY NEEDED Per instructio ns 3 TIMES A DAY NEEDED (route: oral) Med Classific ation: Locomotor System acetaminoph en 500 mg tablet 04-03 00:00: 00 Yes [id number] PAIN 2 tablet EVERY 8 HOURS 2 tablet EVERY 8 HOURS (route: oral) Med Classific ation: Analgesic , Anti-infl ammatory or Antipyret ic bisacodyl 5 mg tablet,ricky yed release 04-03 00:00: 00 Yes [id number] CONSTIPATIO N 1 tablet DAILY 1 tablet DAILY (route: oral) Med Classific ation: Gastroint estinal Therapy Agents Eliquis 2.5 mg tablet 04-03 00:00: 00 05-15 00:00 :00 No [id number] BLOOD THINNER 1 tablet 2 TIMES DAILY 1 tablet 2 TIMES DAILY (route: oral) Med Classific ation: Hematolog ical Agents gabapentin 100 mg tablet 04-03 00:00: 00 05-15 00:00 :00 No [id number] PAIN 1 tablet 3 TIMES DAILY 1 tablet 3 TIMES DAILY (route: oral) Med Classific ation: Central Nervous System Agents metformin 1,000 mg tablet 04-03 00:00: 00 Yes [id number] DM 1 tablet 2 TIMES DAILY 1 tablet 2 TIMES DAILY (route: oral) Med Classific ation: Endocrine methocarbam ol 500 mg tablet 04-03 00:00: 00 06-17 23:59 :00 No [id number] MUSCLE SPASMS 1 tablet 3 TIMES DAILY 1 tablet 3 TIMES DAILY (route: oral) Med Classific ation: Locomotor System Milk of Magnesia 400 mg/5 mL oral suspension 04-03 00:00: 00 Yes [id number] CONSTIPATIO N 30 mL 2 TIMES DAILY 30 mL 2 TIMES DAILY (route: oral) Med Classific ation: Gastroint estinal Therapy Agents Miralax 17 gram oral powder packet 04-03 00:00: 00 Yes [id number] CONSTIPATIO N 17 packet DAILY 17 packet DAILY (route: oral) Med Classific ation: Gastroint estinal Therapy Agents naloxone 4 mg/actuatio n nasal spray 04-03 00:00: 00 Yes [id number] OVERDOSE VIA OPIOD 1 spray DAILY 1 spray DAILY (route: nasal) Med Classific ation: Antidotes and other Reversal Agents omeprazole 20 mg capsule,del ayed release 04-03 00:00: 00 05-15 00:00 :00 No [id number] STOMACH 1 capsule DAILY 1 capsule DAILY (route: oral) Med Classific ation: Gastroint estinal Therapy Agents rosuvastati n 10 mg tablet 04-03 00:00: 00 05-15 00:00 :00 No [id number] CHOLESTEROL 1 tablet DAILY 1 tablet DAILY (route: oral) Med Classific ation: Cardiovas cular Therapy Agents Senna Plus 8.6 mg-50 mg tablet 04-03 00:00: 00 Yes [id number] CONSTIPATIO N 1 tablet DAILY 1 tablet DAILY (route: oral) Med Classific ation: Gastroint estinal Therapy Agents tamsulosin 0.4 mg capsule 04-03 00:00: 00 05-15 00:00 :00 No [id number] BLADDER 1 capsule 2 TIMES DAILY 1 capsule 2 TIMES DAILY (route: oral) Med Classific ation: Genitouri nary Therapy tramadol 50 mg tablet 04-03 00:00: 00 05-15 00:00 :00 No [id number] NODERATE PAIN 1-2 tablet EVERY 4 HOURS 1-2 tablet EVERY 4 HOURS (route: oral) Med Classific ation: Analgesic , Anti-infl ammatory or Antipyret ic oxygen gas for inhalation 04-03 00:00: 00 Yes [id number] BREATHING 2-3 Liter DAILY 2-3 Liter DAILY (route: inhalation ) Med Classific ation: Medical Supplies and Durable Medical Equipment (DME) ampicillin 1 gram intravenous solution 05-14 00:00: 00 06-17 23:59 :00 No [id number] INFECTION 12 g DAILY 12 g DAILY (route: intravenou s) Med Classific ation: Anti-Infe ctive Agents ceftriaxone 2 gram intravenous solution 05-14 00:00: 06-17 23:59 :00 No [id number] INFECTION 2 g EVERY 12 HOURS 2 g EVERY 12 HOURS (route: intravenou s) Med Classific ation: Anti-Infe ctive Agents heparin lock flush (porcine) 10 unit/mL intravenous solution 05-14 00:00: 00 06-17 23:59 :00 No [id number] PICC LINE CARE 10 unit DIRECTED 10 unit DIRECTED (route: intravenou s) Med Classific ation: Hematolog ical Agents sodium chloride 0.9 % (flush) injection syringe 05-14 00:00: 00 06-17 23:59 :00 No [id number] PICC LINE CARE 0.9 DIRECTED 0.9 % DIRECTED (route: injection) Med Classific ation: Electroly te Balance-N utritiona l Products hydrochloro thiazide 25 mg tablet 06-05 00:00: 00 Yes [id number] FLUID OVERLOAD 1 tablet DAILY 1 tablet DAILY (route: oral) Med Classific ation: Cardiovas cular Therapy Agents lisinopril 2.5 mg tablet 06-17 00:00: 00 Yes [id number] BLOOD PRESSURE 1 tablet DAILY 1 tablet DAILY (route: oral) Med Classific ation: Cardiovas cular Therapy Agents rosuvastati n 10 mg tablet 06-17 00:00: 00 Yes [id number] CHOLESTEROL 1 tablet BEDTIME 1 tablet BEDTIME (route: oral) Med Classific ation: Cardiovas cular Therapy Agents tamsulosin 0.4 mg capsule 06-17 00:00: 00 Yes [id number] BPH 1 capsule DAILY 1 capsule DAILY (route: oral) Med Classific ation: Genitouri nary Therapy tizanidine 4 mg tablet 06-17 00:00: 00 Yes [id number] MUSCLE SPASMS 1 tablet 3 TIMES DAILY 1 tablet 3 TIMES DAILY (route: oral) Med Classific ation: Locomotor System amoxicillin 500 mg capsule 06-17 00:00: 00 Yes [id number] INFECTION 2 capsule 3 TIMES DAILY 2 capsule 3 TIMES DAILY (route: oral) Med Classific ation: Anti-Infe ctive Agents potassium chloride ER 10 mEq tablet,exte nded release 06-22 00:00: 00 06-29 23:59 :00 No [id number] SUPPLEMENT 1 tablet DAILY 1 tablet DAILY (route: oral) Med Classific ation: Electroly te Balance-N utritiona l Products torsemide 10 mg tablet 06-22 00:00: 00 06-29 23:59 :00 No [id number] SWELLING 1 tablet DAILY 1 tablet DAILY (route: oral) Med Classific ation: Cardiovas cular Therapy Agents triamcinolo ne acetonide 0.1 % topical cream 06-23 00:00: 00 Yes [id number] ITCHING Per instruc tions 2 TIMES DAILY Per instructio ns 2 TIMES DAILY (route: topical) Med Classific ation: Dermatolo gical Vital Signs Vital Name Observation Time Observation Value Commen ts Temperature 2024-07-09 10:23:00.000 97.4 [degF] Temperature 2024-06-30 10:38:00.000 97.4 [degF] Temperature 2024-06-23 10:59:00.000 97.6 [degF] Temperature 2024-06-17 12:41:00.000 98.4 [degF] Temperature 2024-06-16 12:49:00.000 97.9 [degF] Temperature 2024-06-11 14:54:00.000 97.9 [degF] Temperature 2024-06-09 14:40:00.000 97.7 [degF] Temperature 2024-06-08 09:28:00.000 99.3 [degF] Temperature 2024-06-05 09:42:00.000 97.9 [degF] Temperature 2024-06-02 09:39:00.000 98.3 [degF] Pulse 2024-07-09 10:23:00.000 95 /min Pulse 2024-06-30 10:38:00.000 82 /min Pulse 2024-06-23 10:59:00.000 73 /min Pulse 2024-06-17 12:41:00.000 62 /min Pulse 2024-06-16 12:49:00.000 60 /min Pulse 2024-06-11 14:54:00.000 73 /min Pulse 2024-06-09 14:40:00.000 80 /min Pulse 2024-06-08 09:28:00.000 83 /min Pulse 2024-06-05 09:42:00.000 85 /min Pulse 2024-06-02 09:39:00.000 90 /min O2 Saturation (%) 2024-07-09 10:23:00.000 95 % O2 Saturation (%) 2024-06-30 10:38:00.000 96 % O2 Saturation (%) 2024-06-23 10:59:00.000 92 % O2 Saturation (%) 2024-06-17 12:41:00.000 92 % O2 Saturation (%) 2024-06-16 12:49:00.000 93 % O2 Saturation (%) 2024-06-11 14:54:00.000 97 % O2 Saturation (%) 2024-06-09 14:40:00.000 94 % O2 Saturation (%) 2024-06-08 09:28:00.000 90 % O2 Saturation (%) 2024-06-05 09:42:00.000 94 % O2 Saturation (%) 2024-06-02 09:39:00.000 90 % Respirations 2024-07-09 10:23:00.000 18 /min Respirations 2024-06-30 10:38:00.000 18 /min Respirations 2024-06-23 10:59:00.000 18 /min Respirations 2024-06-17 12:41:00.000 20 /min Respirations 2024-06-16 12:49:00.000 18 /min Respirations 2024-06-11 14:54:00.000 18 /min Respirations 2024-06-09 14:40:00.000 18 /min Respirations 2024-06-08 09:28:00.000 20 /min Respirations 2024-06-05 09:42:00.000 20 /min Respirations 2024-06-02 09:39:00.000 18 /min Weight (lbs) 2024-07-09 10:26:00.000 286 [lb_av] Weight (lbs) 2024-06-30 10:38:00.000 290 [lb_av] Weight (lbs) 2024-06-17 12:41:00.000 310 [lb_av] Weight (lbs) 2024-06-16 12:49:00.000 311.2 [lb_av] Weight (lbs) 2024-06-11 15:01:00.000 310.5 [lb_av] Systolic Blood Pressure 2024-07-09 10:23:00.000 130 mm [Hg] Systolic Blood Pressure 2024-06-30 10:38:00.000 166 mm [Hg] Systolic Blood Pressure 2024-06-23 10:59:00.000 118 mm [Hg] Systolic Blood Pressure 2024-06-17 12:41:00.000 138 mm [Hg] Systolic Blood Pressure 2024-06-16 12:49:00.000 114 mm [Hg] Systolic Blood Pressure 2024-06-11 14:54:00.000 148 mm [Hg] Systolic Blood Pressure 2024-06-09 14:40:00.000 138 mm [Hg] Systolic Blood Pressure 2024-06-08 09:28:00.000 170 mm [Hg] Systolic Blood Pressure 2024-06-05 09:42:00.000 164 mm [Hg] Systolic Blood Pressure 2024-06-02 09:39:00.000 152 mm [Hg] Diastolic Blood Pressure 2024-07-09 10:23:00.000 76 mm [Hg] Diastolic Blood Pressure 2024-06-30 10:38:00.000 98 mm [Hg] Diastolic Blood Pressure 2024-06-23 10:59:00.000 66 mm [Hg] Diastolic Blood Pressure 2024-06-17 12:41:00.000 62 mm [Hg] Diastolic Blood Pressure 2024-06-16 12:49:00.000 56 mm [Hg] Diastolic Blood Pressure 2024-06-11 14:54:00.000 90 mm [Hg] Diastolic Blood Pressure 2024-06-09 14:40:00.000 78 mm [Hg] Diastolic Blood Pressure 2024-06-08 09:28:00.000 102 m m[Hg] Diastolic Blood Pressure 2024-06-05 09:42:00.000 88 mm [Hg] Diastolic Blood Pressure 2024-06-02 09:39:00.000 88 mm [Hg] Plan of Treatment Planned Activity Planned Date Details Comments Future Scheduled Test RN TO OBSE RVE, ASSESS, EVALUATE, AND DEVELOP AN INDIVIDUALIZED PLAN OF CARE. AGENCY MAY ACCEPT ORDERS FROM CONSULTING PHYSICIANS KHANG SANTACRUZ MD, TL BARAJAS, STUART RIVAS RN TO OBSERVE AND ASSESS, ESL PROFESSOR/ORE GRADER TO OBSERVE FOR RISK FOR FALLS AND INSTRUCT IN FALL PREVENTION, HOME SAFETY, MEDICATION MANAGEMENT, INFECTION PREVENTION, AND NUTRITION MANAGEMENT. RN/ESL PROFESSOR/ORE GRADER NURSE MAY PERFORM O2 SATURATION LEVEL ON ADMISSION AND PRN FOR ALTERED MENTAL STATUS, SOB, PICC LINE CARE, LABS FOR RN TO ASSESS/ESL PROFESSOR TO OBSERVE PATIENT, WITH NOTIFICATION TO THE PHYSICIAN IF SATURATION IS 90% IN THE ABSENCE OF MORE SPECIFIC PARAMETERS FROM THE PHYSICIAN. AGENCY MAY PERFORM A RESUMPTION OF CARE VISIT FOLLOWING ANY HOSPITAL ADMISSION. RN/ESL PROFESSOR/ORE GRADER TO MONITOR CO-MORBID CONDITIONS LISTED ON THE PLAN OF CARE AND ANY NEW CONDITIONS THAT PRESENT THEMSELVES DURING THIS EPISODE TO IDENTIFY CHANGES AND INTERVENE TO MINIMIZE COMPLICATIONS. [code = RN TO OBSERVE, ASSESS, EVALUATE, AND DEVELOP AN INDIVIDUALIZED PLAN OF CARE. AGENCY MAY ACCEPT ORDERS FROM CONSULTING PHYSICIANS KHANG SANTACRUZ MD, TL BARAJAS, STUART RIVAS RN TO OBSERVE AND ASSESS, ESL PROFESSOR/ORE GRADER TO OBSERVE FOR RISK FOR FALLS AND INSTRUCT IN FALL PREVENTION, HOME SAFETY, MEDICATION MANAGEMENT, INFECTION PREVENTION, AND NUTRITION MANAGEMENT. RN/ESL PROFESSOR/ORE GRADER NURSE MAY PERFORM O2 SATURATION LEVEL ON ADMISSION AND PRN FOR ALTERED MENTAL STATUS, SOB, PICC LINE CARE, LABS FOR RN TO ASSESS/ESL PROFESSOR TO OBSERVE PATIENT, WITH NOTIFICATION TO THE PHYSICIAN IF SATURATION IS 90% IN THE ABSENCE OF MORE SPECIFIC PARAMETERS FROM THE PHYSICIAN. AGENCY MAY PERFORM A RESUMPTION OF CARE VISIT FOLLOWING ANY HOSPITAL ADMISSION. RN/ESL PROFESSOR/ORE GRADER TO MONITOR CO-MORBID CONDITIONS LISTED ON THE PLAN OF CARE AND ANY NEW CONDITIONS THAT PRESENT THEMSELVES DURING THIS EPISODE TO IDENTIFY CHANGES AND INTERVENE TO MINIMIZE COMPLICATIONS.] Future Scheduled Test HEART FAIL URE MONITORING RN/ORE GRADER/ESL PROFESSOR TO MONITOR PATIENT FOR SIGNS AND SYMPTOMS OF HEART FAILURE EXACERBATION, MONITOR FOR ADHERENCE WITH MEDICATION AND HEART FAILURE MANAGEMENT REGIMEN. [code = HEART FAILURE MONITORING RN/ORE GRADER/ESL PROFESSOR TO MONITOR PATIENT FOR SIGNS AND SYMPTOMS OF HEART FAILURE EXACERBATION, MONITOR FOR ADHERENCE WITH MEDICATION AND HEART FAILURE MANAGEMENT REGIMEN.] Future Scheduled Test MEDICATION MANAGEMENT; RN/ESL PROFESSOR/ORE GRADER TO REVIEW MEDICATIONS FOR INTERACTIONS, EFFECTIVENESS OF DRUG THERAPY, AND SIGNS/SYMPTOMS OF ADVERSE REACTIONS. MAY INSTRUCT AND REINFORCE MEDICATION TEACHING RELATED TO THE USE OF MEDICATIONS, DOSAGE, FREQUENCY, PURPOSE, SIDE EFFECTS, AND TO REPORT COMPLICATIONS. [code = MEDICATION MANAGEMENT; RN/ESL PROFESSOR/ORE GRADER TO REVIEW MEDICATIONS FOR INTERACTIONS, EFFECTIVENESS OF DRUG THERAPY, AND SIGNS/SYMPTOMS OF ADVERSE REACTIONS. MAY INSTRUCT AND REINFORCE MEDICATION TEACHING RELATED TO THE USE OF MEDICATIONS, DOSAGE, FREQUENCY, PURPOSE, SIDE EFFECTS, AND TO REPORT COMPLICATIONS.] Future Scheduled Test CARDIOVASC ULAR SYSTEM; RN TO ASSESS/TEACH, ESL PROFESSOR/ORE GRADER TO OBSERVE/TEACH RELATED TO ALTERED CARDIOVASCULAR STATUS TO MINIMIZE COMPLICATIONS AND REDUCE HOSPITALIZATION. [code = CARDIOVASCULAR SYSTEM; RN TO ASSESS/TEACH, ESL PROFESSOR/ORE GRADER TO OBSERVE/TEACH RELATED TO ALTERED CARDIOVASCULAR STATUS TO MINIMIZE COMPLICATIONS AND REDUCE HOSPITALIZATION.] Future Scheduled Test HEART FAIL URE; RN TO ASSESS/TEACH, ESL PROFESSOR/ORE GRADER TO OBSERVE/TEACH CARDIOPULMONARY SYSTEM TO IDENTIFY SIGNS OF DECOMPENSATION AND INTERVENE TO MINIMIZE THE SEVERITY OF FLUID OVERLOAD. OBSERVE PATIENT ABILITY TO MONITOR AND RECORD DAILY WEIGHTS AND VITAL SIGNS, INCLUDING PULSE AND BLOOD PRESSURE; RECORD PATIENT REPORTED WEIGHT, OR WEIGH PATIENT NEEDED. REPORT INCREASED EDEMA OR WEIGHT GAIN OF >2 LBS IN 1 DAY OR >5 LBS IN 1 WEEK OR 5LBS OR MORE OVER TARGET WEIGHT. MAY MEASURE ABDOMINAL GIRTH IF UNABLE TO WEIGH. SCALES AND BP MONITOR TO BE PROVIDED IF NEEDED. [code = HEART FAILURE; RN TO ASSESS/TEACH, ESL PROFESSOR/ORE GRADER TO OBSERVE/TEACH CARDIOPULMONARY SYSTEM TO IDENTIFY SIGNS OF DECOMPENSATION AND INTERVENE TO MINIMIZE THE SEVERITY OF FLUID OVERLOAD. OBSERVE PATIENT ABILITY TO MONITOR AND RECORD DAILY WEIGHTS AND VITAL SIGNS, INCLUDING PULSE AND BLOOD PRESSURE; RECORD PATIENT REPORTED WEIGHT, OR WEIGH PATIENT NEEDED. REPORT INCREASED EDEMA OR WEIGHT GAIN OF >2 LBS IN 1 DAY OR >5 LBS IN 1 WEEK OR 5LBS OR MORE OVER TARGET WEIGHT. MAY MEASURE ABDOMINAL GIRTH IF UNABLE TO WEIGH. SCALES AND BP MONITOR TO BE PROVIDED IF NEEDED.] Future Scheduled Test HYPERTENSI ON MANAGEMENT; RN TO ASSESS AND TEACH, ESL PROFESSOR/ORE GRADER TO OBSERVE AND TEACH WARNING SIGNS AND SYMPTOMS TO AVOID HOSPITALIZATION. [code = HYPERTENSION MANAGEMENT; RN TO ASSESS AND TEACH, ESL PROFESSOR/ORE GRADER TO OBSERVE AND TEACH WARNING SIGNS AND SYMPTOMS TO AVOID HOSPITALIZATION.] Future Scheduled Test PAIN MANAG EMENT; RN TO ASSESS AND TEACH, ORE GRADER/ESL PROFESSOR TO OBSERVE AND TEACH AND PROVIDE EDUCATION ON PAIN MANAGEMENT TECHNIQUES. [code = PAIN MANAGEMENT; RN TO ASSESS AND TEACH, ORE GRADER/ESL PROFESSOR TO OBSERVE AND TEACH AND PROVIDE EDUCATION ON PAIN MANAGEMENT TECHNIQUES.] Future Scheduled Test DIABETES M ANAGEMENT; RN TO ASSESS AND TEACH, ORE GRADER/ESL PROFESSOR TO OBSERVE AND TEACH INSTRUCTIONS OF DIABETIC CARE TO INCLUDE: DIET SKIN CARE, SIGNS AND SYMPTOMS OF HYPO/HYPERGLYCEMIA, PROPER ADMINISTRATION OF DIABETIC MEDICATION. RN/ORE GRADER/ESL PROFESSOR TO INSTRUCT ON DIABETIC FOOT CARE AND MONITOR FOR SKIN LESIONS ON LOWER EXTREMITIES. RN TO ASSESS AND TEACH, ORE GRADER/ESL PROFESSOR TO OBSERVE AND TEACH PATIENT/CAREGIVER ABILITY TO PERFORM AND RECORD BLOOD GLUCOSE TESTING ORDERED AND TO REPORT ABNORMAL FINDINGS TO PHYSICIAN. RN/ORE GRADER/ESL PROFESSOR MAY PERFORM BLOOD GLUCOSE TEST NEEDED. RN/ORE GRADER/ESL PROFESSOR TO INSTRUCT PATIENT ON IMPORTANCE OF HGBA1C MONITORING, KIDNEY FUNCTION TEST, EYE AND FOOT EXAMS. [code = DIABETES MANAGEMENT; RN TO ASSESS AND TEACH, ORE GRADER/ESL PROFESSOR TO OBSERVE AND TEACH INSTRUCTIONS OF DIABETIC CARE TO INCLUDE: DIET SKIN CARE, SIGNS AND SYMPTOMS OF HYPO/HYPERGLYCEMIA, PROPER ADMINISTRATION OF DIABETIC MEDICATION. RN/ORE GRADER/ESL PROFESSOR TO INSTRUCT ON DIABETIC FOOT CARE AND MONITOR FOR SKIN LESIONS ON LOWER EXTREMITIES. RN TO ASSESS AND TEACH, ORE GRADER/ESL PROFESSOR TO OBSERVE AND TEACH PATIENT/CAREGIVER ABILITY TO PERFORM AND RECORD BLOOD GLUCOSE TESTING ORDERED AND TO REPORT ABNORMAL FINDINGS TO PHYSICIAN. RN/ORE GRADER/ESL PROFESSOR MAY PERFORM BLOOD GLUCOSE TEST NEEDED. RN/ORE GRADER/ESL PROFESSOR TO INSTRUCT PATIENT ON IMPORTANCE OF HGBA1C MONITORING, KIDNEY FUNCTION TEST, EYE AND FOOT EXAMS.] Future Scheduled Test FALL REDUC TION MANAGEMENT; RN TO ASSESS AND OBSERVE, ESL PROFESSOR/ORE GRADER TO OBSERVE FALL RISK FACTORS AND EDUCATE PATIENT/CAREGIVER ON STRATEGIES TO MINIMIZE THE RISK OF FALLING. [code = FALL REDUCTION MANAGEMENT; RN TO ASSESS AND OBSERVE, ESL PROFESSOR/ORE GRADER TO OBSERVE FALL RISK FACTORS AND EDUCATE PATIENT/CAREGIVER ON STRATEGIES TO MINIMIZE THE RISK OF FALLING.] Future Scheduled Test IV THERAPY MANAGEMENT; RN TO ASSESS AND TEACH, ORE GRADER/ESL PROFESSOR TO OBSERVE AND TEACH ON IV ACCESS SITE RUE PICC LINE, RESPONSE TO MEDICATION. RN/ORE GRADER/ESL PROFESSOR FOR SKILLED TEACHING REGARDING INFUSION PROCEDURE, CARE OF ACCESS DEVICE, SIGNS AND SYMPTOMS OF ACCESS DEVICE COMPLICATIONS AND, CARE AND USE OF INFUSION EQUIPMENT. [code = IV THERAPY MANAGEMENT; RN TO ASSESS AND TEACH, ORE GRADER/ESL PROFESSOR TO OBSERVE AND TEACH ON IV ACCESS SITE RUE PICC LINE, RESPONSE TO MEDICATION. RN/ORE GRADER/ESL PROFESSOR FOR SKILLED TEACHING REGARDING INFUSION PROCEDURE, CARE OF ACCESS DEVICE, SIGNS AND SYMPTOMS OF ACCESS DEVICE COMPLICATIONS AND, CARE AND USE OF INFUSION EQUIPMENT.] Future Scheduled Test IV THERAPY ADMINISTRATION; RN/ESL PROFESSOR/ORE GRADER TO OBTAIN IV ACCESS VIA PICC LINE RN/ESL PROFESSOR/ORE GRADER TO INFUSE AND/OR TEACH PATIENT/CAREGIVER INFUSION OF AMPICILLIN, CEFTRIAXONE VIA PUMP/SYRINGE. CHANGE PRN FOR LOOSE OR SOILED DRESSINGS. INJECTION CAP CHANGE EVERY WEEK AND WITH EACH LAB DRAW AND PRN FOR CONTAMINATION OR MALFUNCTION. EXTENSION TUBING TO BE CHANGED WEEKLY AND WITH EACH LAB DRAW AND PRN FOR PROBLEMS. SKIN PREP PRN; SECUREMENT DEVICE PRN. BIOPATCH PRN FOR REDNESS OR NEUTROPENIA. RN/ESL PROFESSOR/ORE GRADER TO PERFORM/INSTRUCT PATIENT/CAREGIVER TO FLUSH IV ACCESS WITH NS RN/ESL PROFESSOR/ORE GRADER TO PERFORM SITE CARE FOR INFUSION ACCESS DEVICE PICC LINE WITH DRESSING CHANGE TO INCLUDE PICC LINE DRESSING CHANGE WEEKLY RN/ESL PROFESSOR/ORE GRADER TO CLEANSE ACCESS SITE WITH CLEANSER ALLOW TO AIR DRY AND THEN APPLY DRESSING WEEKLY [code = IV THERAPY ADMINISTRATION; RN/ESL PROFESSOR/ORE GRADER TO OBTAIN IV ACCESS VIA PICC LINE RN/ESL PROFESSOR/ORE GRADER TO INFUSE AND/OR TEACH PATIENT/CAREGIVER INFUSION OF AMPICILLIN, CEFTRIAXONE VIA PUMP/SYRINGE. CHANGE PRN FOR LOOSE OR SOILED DRESSINGS. INJECTION CAP CHANGE EVERY WEEK AND WITH EACH LAB DRAW AND PRN FOR CONTAMINATION OR MALFUNCTION. EXTENSION TUBING TO BE CHANGED WEEKLY AND WITH EACH LAB DRAW AND PRN FOR PROBLEMS. SKIN PREP PRN; SECUREMENT DEVICE PRN. BIOPATCH PRN FOR REDNESS OR NEUTROPENIA. RN/ESL PROFESSOR/ORE GRADER TO PERFORM/INSTRUCT PATIENT/CAREGIVER TO FLUSH IV ACCESS WITH NS RN/ESL PROFESSOR/ORE GRADER TO PERFORM SITE CARE FOR INFUSION ACCESS DEVICE PICC LINE WITH DRESSING CHANGE TO INCLUDE PICC LINE DRESSING CHANGE WEEKLY RN/ESL PROFESSOR/ORE GRADER TO CLEANSE ACCESS SITE WITH CLEANSER ALLOW TO AIR DRY AND THEN APPLY DRESSING WEEKLY] Future Scheduled Test LAB DRAW V IA VASCULAR ACCESS DEVICE; RN/ESL PROFESSOR/ORE GRADER TO PERFORM LAB DRAW FROM ACCESS DEVICE. DRAW CBC W/DIFF, BUN, SRCR, AND LFT'S, CRP EVERY SATURDAY. RN/ESL PROFESSOR/ORE GRADER TO DRAW LABS VIA VENIPUNCTURE PRN IF UNABLE TO DRAW VIA VASCULAR ACCESS DEVICE. FAX LABS TO: [facility] ATTN: MD NOAM. FAX # [phone] [code = LAB DRAW VIA VASCULAR ACCESS DEVICE; RN/ESL PROFESSOR/ORE GRADER TO PERFORM LAB DRAW FROM ACCESS DEVICE. DRAW CBC W/DIFF, BUN, SRCR, AND LFT'S, CRP EVERY SATURDAY. RN/ESL PROFESSOR/ORE GRADER TO DRAW LABS VIA VENIPUNCTURE PRN IF UNABLE TO DRAW VIA VASCULAR ACCESS DEVICE. FAX LABS TO: [facility] ATTN: MD NOAM. FAX # [phone]] Future Scheduled Test PRN VISITS ; NUMBER OF RN/ESL PROFESSOR/ORE GRADER VISITS: 2 RN/ESL PROFESSOR/ORE GRADER TO PERFORM: ASSESSMENT FOR THE FOLLOWING REASONS: SOB, ALTERED MENTAL STATUS, PICC LINE CARE, LABS [code = PRN VISITS; NUMBER OF RN/ESL PROFESSOR/ORE GRADER VISITS: 2 RN/ESL PROFESSOR/ORE GRADER TO PERFORM: ASSESSMENT FOR THE FOLLOWING REASONS: SOB, ALTERED MENTAL STATUS, PICC LINE CARE, LABS] Goal 2024-07-31 Patient Goal - R ECOVER. RETURN TO NORMAL ACTIVITY, LESS PAIN Goal 2024-05-28 Patient Goal - R ECOVER. RETURN TO NORMAL ACTIVITY, LESS PAIN Goal 2024-05-15 Patient Goal - R ECOVER. RETURN TO NORMAL ACTIVITY, LESS PAIN Goal Provider Goal - A PLAN OF CARE WILL BE ESTABLISHED THAT MEETS THE PATIENTS NEEDS. PATIENT WILL DEMONSTRATE OXYGEN SATURATION WITHIN NORMAL LIMITS OR PATIENTS OPTIMAL LEVEL ESTABLISHED BY THE PHYSICIAN THROUGHOUT CARE. CHANGES TO CO-MORBID CONDITIONS AND ANY NEW CONDITIONS WILL BE IDENTIFIED AND REPORTED TO THE PHYSICIAN. Goal Provider Goal - HEART FAILURE CONDITION WILL BE CONTROLLED THROUGHOUT THE EPISODE. Goal Provider Goal - PATIENT/CAREGIVER TO VERBALIZE, AND CONSISTENTLY DEMONSTRATE EFFECTIVE, SAFE MANAGEMENT OF MEDICATION INCLUDING KNOWLEDGE OF EFFECTIVENESS, POTENTIAL SIDE EFFECTS AND DRUG REACTIONS AND WHEN TO CONTACT THE APPROPRIATE CARE PROVIDER. PATIENT/CAREGIVER WILL BE ABLE TO VERBALIZE UNDERSTANDING OF MEDICATION REGIMEN AND ACCURATELY TAKE MEDICATIONS PRESCRIBED WITHOUT ADVERSE EFFECTS BY 07/31/24 Goal Provider Goal - PATIENT / CAREGIVER WILL VERBALIZE/DEMONSTRATE UNDERSTANDING OF MEASURES TO MANAGE ALTERED CARDIOVASCULAR STATUS BY 07/31/24 Goal Provider Goal - PATIENT / CAREGIVER WILL VERBALIZE/DEMONSTRATE AN ABILITY TO ADHERE TO SELF-MANAGEMENT OF HF TO MINIMIZE COMPLICATIONS AND AVOID HOSPITALIZATION BY END OF EPISODE. Goal Provider Goal - PATIENT / CAREGIVER WILL VERBALIZE/DEMONSTRATE AN ABILITY TO ADHERE TO SELF-MANAGEMENT OF HTN TO MINIMIZE COMPLICATIONS AND AVOID HOSPITALIZATION BY END OF EPISODE. Goal Provider Goal - PATIENT / CAREGIVER WILL VERBALIZE / DEMONSTRATE UNDERSTANDING OF PAIN CONTROL MEASURES BY 07/31/24 Goal Provider Goal - PATIENT / CAREGIVER WILL VERBALIZE / DEMONSTRATE AN ABILITY TO ADHERE TO SELF-MANAGEMENT OF DIABETES MANAGEMENT BY 07/31/24 Goal Provider Goal - PATIENT/CAREGIVER WILL VERBALIZE/DEMONSTRATE UNDERSTANDING OF FALL RISK FACTORS AND IMPLEMENT STRATEGIES TO MINIMIZE FALL RISK. PATIENT/CAREGIVER WILL VERBALIZE/DEMONSTRATE AN ABILITY TO ADHERE TO FALL REDUCTION SELF-MANAGEMENT AND LIFE-STYLE CHANGES BY 07/31/24 Goal Provider Goal - PATIENT / CAREGIVER WILL VERBALIZE/DEMONSTRATE ABILITY TO CARE FOR ADMINISTER IV ADEQUATELY BY 07/31/24 Goal Provider Goal - PATIENT WILL VERBALIZE/DEMONSTRATE TOLERANCE TO INFUSION PROCEDURE BY 07/31/24 Goal Provider Goal - PATIENT WILL VERBALIZE TOLERANCE TO LAB DRAW FROM VASCULAR ACCESS DEVICE BY 07/31/24 Goal Provider Goal - Reason for Visit INDEPENDENT IN THE HOME Encounters Start Date/Time End Date/Time Encounter Type Admission Type Attending [facility] Care Department Encounter ID Discharge Date Discharge Status Discharge Condition Discharge Reason Percent Goals Met 2024-06-02 00:00:00 2024-07-31 00:00:00 Outpatient RECERTIFIC ATION KAYLAN CHACON [facility] [id number] 2024-07-31 00:00:00 DISCHARGE TO HOME OR SELF CARE INDEPENDEN T IN THE HOME HH - PER CLIENT AND/OR CAREGIVER REQUEST 19.44
--- OUTSIDE RECORDS SUMMARY | 2024-07-30 20:00 | XMS_ITS | Clinical Summary ---
Author Organization Unknown Care Team Providers Care Director Of Student Life Name Role Phone STUART PAREDES Unavailable Malika CHACON RN, KAYLAN Unavailable Unavailable TOMVANDANAIN BUSINESS CONTINUITY GLOBAL DIRECTOR, JAVI Unavailable Unavailable HICKEY PT, TOMAS Unavailable Unavailable [employer] CAPTAIN, NORMA Unavailable Unavailable Payers Payer Name Policy Type Policy Number Effective Date Expira tion Date MEDICARE.[facility] [id number] Problems Condition Name Condition Details Condition Category [...] TO EXCESS CALORIES Active 03-26 00:00: 00 SHELTER (CURRENT) USE OF ANTICOAGULAN TS Active 03-26 00:00: 00 SHELTER (CURRENT) USE OF ORAL HYPOGLYCEMIC DRUGS Active [...] 03-26 00:00: 00 06-17 23:59 :00 No [id number] PAIN 1 tablet EVERY 6 HOURS 1 tablet EVERY 6 HOURS (route: oral) Med Classific ation: Analgesic , Anti-infl ammatory or Antipyret ic oxycodone-a cetaminophe n 10 mg-325 mg tablet 03-10 00:00: 00 Yes [id number] PAIN 1 tablet EVERY 8 HOURS NEEDED 1 tablet EVERY 8 HOURS NEEDED (route: oral) Med Classific ation: Analgesic , Anti-infl ammatory or Antipyret ic tizanidine 4 mg tablet - 00:00: 00 04-03 00:00 :00 No [id number] Per instruc tions 3 TIMES A DAY NEEDED Per instructio ns 3 TIMES A DAY NEEDED (route: oral) Med Classific ation: Locomotor System acetaminoph en 500 mg tablet 04-03 00:00: 00 Yes [id number] PAIN 2 tablet EVERY 8 HOURS 2 tablet EVERY 8 HOURS (route: oral) Med Classific ation: Analgesic , Anti-infl ammatory or Antipyret ic bisacodyl 5 mg tablet,ricky yed release 04-03 00:00: 00 Yes [id number] CONSTIPATIO N 1 tablet DAILY 1 tablet DAILY (route: oral) Med Classific ation: Gastroint estinal Therapy Agents Eliquis 2.5 mg tablet 04-03 00:00: 00 05-15 00:00 :00 No [id number] BLOOD THINNER 1 tablet 2 TIMES DAILY 1 tablet 2 TIMES DAILY (route: oral) Med Classific ation: Hematolog ical Agents gabapentin 100 mg tablet 04-03 00:00: 00 05-15 00:00 :00 No [id number] PAIN 1 tablet 3 TIMES DAILY 1 tablet 3 TIMES DAILY (route: oral) Med Classific ation: Central Nervous System Agents metformin 1,000 mg tablet 04-03 00:00: 00 Yes [id number] DM 1 tablet 2 TIMES DAILY 1 tablet 2 TIMES DAILY (route: oral) Med Classific ation: Endocrine methocarbam ol 500 mg tablet 04-03 00:00: 00 06-17 23:59 :00 No [id number] MUSCLE SPASMS 1 tablet 3 TIMES DAILY 1 tablet 3 TIMES DAILY (route: oral) Med Classific ation: Locomotor System Milk of Magnesia 400 mg/5 mL oral suspension 04-03 00:00: 00 Yes [id number] CONSTIPATIO N 30 mL 2 TIMES DAILY 30 mL 2 TIMES DAILY (route: oral) Med Classific ation: Gastroint estinal Therapy Agents Miralax 17 gram oral powder packet 04-03 00:00: 00 Yes [id number] CONSTIPATIO N 17 packet DAILY 17 packet DAILY (route: oral) Med Classific ation: Gastroint estinal Therapy Agents naloxone 4 mg/actuatio n nasal spray 04-03 00:00: 00 Yes [id number] OVERDOSE VIA OPIOD 1 spray DAILY 1 spray DAILY (route: nasal) Med Classific ation: Antidotes and other Reversal Agents omeprazole 20 mg capsule,del ayed release 04-03 00:00: 00 05-15 00:00 :00 No [id number] STOMACH 1 capsule DAILY 1 capsule DAILY (route: oral) Med Classific ation: Gastroint estinal Therapy Agents rosuvastati n 10 mg tablet 04-03 00:00: 00 05-15 00:00 :00 No [id number] CHOLESTEROL 1 tablet DAILY 1 tablet DAILY (route: oral) Med Classific ation: Cardiovas cular Therapy Agents Senna Plus 8.6 mg-50 mg tablet 04-03 00:00: 00 Yes [id number] CONSTIPATIO N 1 tablet DAILY 1 tablet DAILY (route: oral) Med Classific ation: Gastroint estinal Therapy Agents tamsulosin 0.4 mg capsule 04-03 00:00: 00 05-15 00:00 :00 No [id number] BLADDER 1 capsule 2 TIMES DAILY 1 capsule 2 TIMES DAILY (route: oral) Med Classific ation: Genitouri nary Therapy tramadol 50 mg tablet 04-03 00:00: 00 05-15 00:00 :00 No [id number] NODERATE PAIN 1-2 tablet EVERY 4 HOURS 1-2 tablet EVERY 4 HOURS (route: oral) Med Classific ation: Analgesic , Anti-infl ammatory or Antipyret ic oxygen gas for inhalation 04-03 00:00: 00 Yes [id number] BREATHING 2-3 Liter DAILY 2-3 Liter DAILY (route: inhalation ) Med Classific ation: Medical Supplies and Durable Medical Equipment (DME) ampicillin 1 gram intravenous solution 05-14 00:00: 00 06-17 23:59 :00 No [id number] INFECTION 12 g DAILY 12 g DAILY (route: intravenou s) Med Classific ation: Anti-Infe ctive Agents ceftriaxone 2 gram intravenous solution 05-14 00:00: 06-17 23:59 :00 No [id number] INFECTION 2 g EVERY 12 HOURS 2 g EVERY 12 HOURS (route: intravenou s) Med Classific ation: Anti-Infe ctive Agents heparin lock flush (porcine) 10 unit/mL intravenous solution 05-14 00:00: 00 06-17 23:59 :00 No [id number] PICC LINE CARE 10 unit DIRECTED 10 unit DIRECTED (route: intravenou s) Med Classific ation: Hematolog ical Agents sodium chloride 0.9 % (flush) injection syringe 05-14 00:00: 00 06-17 23:59 :00 No [id number] PICC LINE CARE 0.9 DIRECTED 0.9 % DIRECTED (route: injection) Med Classific ation: Electroly te Balance-N utritiona l Products hydrochloro thiazide 25 mg tablet 06-05 00:00: 00 Yes [id number] FLUID OVERLOAD 1 tablet DAILY 1 tablet DAILY (route: oral) Med Classific ation: Cardiovas cular Therapy Agents lisinopril 2.5 mg tablet 06-17 00:00: 00 Yes [id number] BLOOD PRESSURE 1 tablet DAILY 1 tablet DAILY (route: oral) Med Classific ation: Cardiovas cular Therapy Agents rosuvastati n 10 mg tablet 06-17 00:00: 00 Yes [id number] CHOLESTEROL 1 tablet BEDTIME 1 tablet BEDTIME (route: oral) Med Classific ation: Cardiovas cular Therapy Agents tamsulosin 0.4 mg capsule 06-17 00:00: 00 Yes [id number] BPH 1 capsule DAILY 1 capsule DAILY (route: oral) Med Classific ation: Genitouri nary Therapy tizanidine 4 mg tablet 06-17 00:00: 00 Yes [id number] MUSCLE SPASMS 1 tablet 3 TIMES DAILY 1 tablet 3 TIMES DAILY (route: oral) Med Classific ation: Locomotor System amoxicillin 500 mg capsule 06-17 00:00: 00 Yes [id number] INFECTION 2 capsule 3 TIMES DAILY 2 capsule 3 TIMES DAILY (route: oral) Med Classific ation: Anti-Infe ctive Agents potassium chloride ER 10 mEq tablet,exte nded release 06-22 00:00: 00 06-29 23:59 :00 No [id number] SUPPLEMENT 1 tablet DAILY 1 tablet DAILY (route: oral) Med Classific ation: Electroly te Balance-N utritiona l Products torsemide 10 mg tablet 06-22 00:00: 00 06-29 23:59 :00 No [id number] SWELLING 1 tablet DAILY 1 tablet DAILY (route: oral) Med Classific ation: Cardiovas cular Therapy Agents triamcinolo ne acetonide 0.1 % topical cream 06-23 00:00: 00 Yes [id number] ITCHING Per instruc tions 2 TIMES DAILY [...] STUART RIVAS RN TO OBSERVE AND ASSESS, BUSINESS CONTINUITY GLOBAL DIRECTOR/BLACK PULLER TO OBSERVE FOR RISK FOR FALLS AND INSTRUCT IN FALL PREVENTION, HOME SAFETY, MEDICATION MANAGEMENT, INFECTION PREVENTION, AND NUTRITION MANAGEMENT. RN/BUSINESS CONTINUITY GLOBAL DIRECTOR/BLACK PULLER NURSE MAY PERFORM O2 SATURATION LEVEL ON ADMISSION AND PRN FOR ALTERED MENTAL STATUS, SOB, PICC LINE CARE, LABS FOR RN TO ASSESS/BUSINESS CONTINUITY GLOBAL DIRECTOR TO OBSERVE PATIENT, WITH NOTIFICATION TO THE PHYSICIAN IF SATURATION IS 90% IN THE ABSENCE OF MORE SPECIFIC PARAMETERS FROM THE PHYSICIAN. AGENCY MAY PERFORM A RESUMPTION OF CARE VISIT FOLLOWING ANY HOSPITAL ADMISSION. RN/BUSINESS CONTINUITY GLOBAL DIRECTOR/BLACK PULLER TO MONITOR CO-MORBID CONDITIONS LISTED ON THE PLAN OF CARE AND ANY NEW CONDITIONS THAT PRESENT THEMSELVES DURING THIS EPISODE TO IDENTIFY CHANGES AND INTERVENE TO MINIMIZE COMPLICATIONS. [code = RN TO OBSERVE, ASSESS, EVALUATE, AND DEVELOP AN INDIVIDUALIZED PLAN OF CARE. AGENCY MAY ACCEPT ORDERS FROM CONSULTING PHYSICIANS KHANG SANTACRUZ MD, TL BARAJAS, STUART RIVAS RN TO OBSERVE AND ASSESS, BUSINESS CONTINUITY GLOBAL DIRECTOR/BLACK PULLER TO OBSERVE FOR RISK FOR FALLS AND INSTRUCT IN FALL PREVENTION, HOME SAFETY, MEDICATION MANAGEMENT, INFECTION PREVENTION, AND NUTRITION MANAGEMENT. RN/BUSINESS CONTINUITY GLOBAL DIRECTOR/BLACK PULLER NURSE MAY PERFORM O2 SATURATION LEVEL ON ADMISSION AND PRN FOR ALTERED MENTAL STATUS, SOB, PICC LINE CARE, LABS FOR RN TO ASSESS/BUSINESS CONTINUITY GLOBAL DIRECTOR TO OBSERVE PATIENT, WITH NOTIFICATION TO THE PHYSICIAN IF SATURATION IS 90% IN THE ABSENCE OF MORE SPECIFIC PARAMETERS FROM THE PHYSICIAN. AGENCY MAY PERFORM A RESUMPTION OF CARE VISIT FOLLOWING ANY HOSPITAL ADMISSION. RN/BUSINESS CONTINUITY GLOBAL DIRECTOR/BLACK PULLER TO MONITOR CO-MORBID CONDITIONS LISTED ON THE PLAN OF CARE AND ANY NEW CONDITIONS THAT PRESENT THEMSELVES DURING THIS EPISODE TO IDENTIFY CHANGES AND INTERVENE TO MINIMIZE COMPLICATIONS.] Future Scheduled Test HEART FAIL URE MONITORING RN/BLACK PULLER/BUSINESS CONTINUITY GLOBAL DIRECTOR TO MONITOR PATIENT FOR SIGNS AND SYMPTOMS OF HEART FAILURE EXACERBATION, MONITOR FOR ADHERENCE WITH MEDICATION AND HEART FAILURE MANAGEMENT REGIMEN. [code = HEART FAILURE MONITORING RN/BLACK PULLER/BUSINESS CONTINUITY GLOBAL DIRECTOR TO MONITOR PATIENT FOR SIGNS AND SYMPTOMS OF HEART FAILURE EXACERBATION, MONITOR FOR ADHERENCE WITH MEDICATION AND HEART FAILURE MANAGEMENT REGIMEN.] Future Scheduled Test MEDICATION MANAGEMENT; RN/BUSINESS CONTINUITY GLOBAL DIRECTOR/BLACK PULLER TO REVIEW MEDICATIONS FOR INTERACTIONS, EFFECTIVENESS OF DRUG THERAPY, AND SIGNS/SYMPTOMS OF ADVERSE REACTIONS. MAY INSTRUCT AND REINFORCE MEDICATION TEACHING RELATED TO THE USE OF MEDICATIONS, DOSAGE, FREQUENCY, PURPOSE, SIDE EFFECTS, AND TO REPORT COMPLICATIONS. [code = MEDICATION MANAGEMENT; RN/BUSINESS CONTINUITY GLOBAL DIRECTOR/BLACK PULLER TO REVIEW MEDICATIONS FOR INTERACTIONS, EFFECTIVENESS OF DRUG THERAPY, AND SIGNS/SYMPTOMS OF ADVERSE REACTIONS. MAY INSTRUCT AND REINFORCE MEDICATION TEACHING RELATED TO THE USE OF MEDICATIONS, DOSAGE, FREQUENCY, PURPOSE, SIDE EFFECTS, AND TO REPORT COMPLICATIONS.] Future Scheduled Test CARDIOVASC ULAR SYSTEM; RN TO ASSESS/TEACH, BUSINESS CONTINUITY GLOBAL DIRECTOR/BLACK PULLER TO OBSERVE/TEACH RELATED TO ALTERED CARDIOVASCULAR STATUS TO MINIMIZE COMPLICATIONS AND REDUCE HOSPITALIZATION. [code = CARDIOVASCULAR SYSTEM; RN TO ASSESS/TEACH, BUSINESS CONTINUITY GLOBAL DIRECTOR/BLACK PULLER TO OBSERVE/TEACH RELATED TO ALTERED CARDIOVASCULAR STATUS TO MINIMIZE COMPLICATIONS AND REDUCE HOSPITALIZATION.] Future Scheduled Test HEART FAIL URE; RN TO ASSESS/TEACH, BUSINESS CONTINUITY GLOBAL DIRECTOR/BLACK PULLER TO OBSERVE/TEACH CARDIOPULMONARY SYSTEM TO IDENTIFY SIGNS [...] [code = HEART FAILURE; RN TO ASSESS/TEACH, BUSINESS CONTINUITY GLOBAL DIRECTOR/BLACK PULLER TO OBSERVE/TEACH CARDIOPULMONARY SYSTEM TO IDENTIFY SIGNS [...] ON MANAGEMENT; RN TO ASSESS AND TEACH, BUSINESS CONTINUITY GLOBAL DIRECTOR/BLACK PULLER TO OBSERVE AND TEACH WARNING SIGNS AND SYMPTOMS TO AVOID HOSPITALIZATION. [code = HYPERTENSION MANAGEMENT; RN TO ASSESS AND TEACH, BUSINESS CONTINUITY GLOBAL DIRECTOR/BLACK PULLER TO OBSERVE AND TEACH WARNING SIGNS AND SYMPTOMS TO AVOID HOSPITALIZATION.] Future Scheduled Test PAIN MANAG EMENT; RN TO ASSESS AND TEACH, BLACK PULLER/BUSINESS CONTINUITY GLOBAL DIRECTOR TO OBSERVE AND TEACH AND PROVIDE EDUCATION ON PAIN MANAGEMENT TECHNIQUES. [code = PAIN MANAGEMENT; RN TO ASSESS AND TEACH, BLACK PULLER/BUSINESS CONTINUITY GLOBAL DIRECTOR TO OBSERVE AND TEACH AND PROVIDE EDUCATION ON PAIN MANAGEMENT TECHNIQUES.] Future Scheduled Test DIABETES M ANAGEMENT; RN TO ASSESS AND TEACH, BLACK PULLER/BUSINESS CONTINUITY GLOBAL DIRECTOR TO OBSERVE AND TEACH INSTRUCTIONS OF DIABETIC CARE TO INCLUDE: DIET SKIN CARE, SIGNS AND SYMPTOMS OF HYPO/HYPERGLYCEMIA, PROPER ADMINISTRATION OF DIABETIC MEDICATION. RN/BLACK PULLER/BUSINESS CONTINUITY GLOBAL DIRECTOR TO INSTRUCT ON DIABETIC FOOT CARE AND MONITOR FOR SKIN LESIONS ON LOWER EXTREMITIES. RN TO ASSESS AND TEACH, BLACK PULLER/BUSINESS CONTINUITY GLOBAL DIRECTOR TO OBSERVE AND TEACH PATIENT/CAREGIVER ABILITY TO PERFORM AND RECORD BLOOD GLUCOSE TESTING ORDERED AND TO REPORT ABNORMAL FINDINGS TO PHYSICIAN. RN/BLACK PULLER/BUSINESS CONTINUITY GLOBAL DIRECTOR MAY PERFORM BLOOD GLUCOSE TEST NEEDED. RN/BLACK PULLER/BUSINESS CONTINUITY GLOBAL DIRECTOR TO INSTRUCT PATIENT ON IMPORTANCE OF HGBA1C MONITORING, KIDNEY FUNCTION TEST, EYE AND FOOT EXAMS. [code = DIABETES MANAGEMENT; RN TO ASSESS AND TEACH, BLACK PULLER/BUSINESS CONTINUITY GLOBAL DIRECTOR TO OBSERVE AND TEACH INSTRUCTIONS OF DIABETIC CARE TO INCLUDE: DIET SKIN CARE, SIGNS AND SYMPTOMS OF HYPO/HYPERGLYCEMIA, PROPER ADMINISTRATION OF DIABETIC MEDICATION. RN/BLACK PULLER/BUSINESS CONTINUITY GLOBAL DIRECTOR TO INSTRUCT ON DIABETIC FOOT CARE AND MONITOR FOR SKIN LESIONS ON LOWER EXTREMITIES. RN TO ASSESS AND TEACH, BLACK PULLER/BUSINESS CONTINUITY GLOBAL DIRECTOR TO OBSERVE AND TEACH PATIENT/CAREGIVER ABILITY TO PERFORM AND RECORD BLOOD GLUCOSE TESTING ORDERED AND TO REPORT ABNORMAL FINDINGS TO PHYSICIAN. RN/BLACK PULLER/BUSINESS CONTINUITY GLOBAL DIRECTOR MAY PERFORM BLOOD GLUCOSE TEST NEEDED. RN/BLACK PULLER/BUSINESS CONTINUITY GLOBAL DIRECTOR TO INSTRUCT PATIENT ON IMPORTANCE OF HGBA1C MONITORING, KIDNEY FUNCTION TEST, EYE AND FOOT EXAMS.] Future Scheduled Test FALL REDUC TION MANAGEMENT; RN TO ASSESS AND OBSERVE, BUSINESS CONTINUITY GLOBAL DIRECTOR/BLACK PULLER TO OBSERVE FALL RISK FACTORS AND EDUCATE PATIENT/CAREGIVER ON STRATEGIES TO MINIMIZE THE RISK OF FALLING. [code = FALL REDUCTION MANAGEMENT; RN TO ASSESS AND OBSERVE, BUSINESS CONTINUITY GLOBAL DIRECTOR/BLACK PULLER TO OBSERVE FALL RISK FACTORS AND EDUCATE PATIENT/CAREGIVER ON STRATEGIES TO MINIMIZE THE RISK OF FALLING.] Future Scheduled Test IV THERAPY MANAGEMENT; RN TO ASSESS AND TEACH, BLACK PULLER/BUSINESS CONTINUITY GLOBAL DIRECTOR TO OBSERVE AND TEACH ON IV ACCESS SITE RUE PICC LINE, RESPONSE TO MEDICATION. RN/BLACK PULLER/BUSINESS CONTINUITY GLOBAL DIRECTOR FOR SKILLED TEACHING REGARDING INFUSION PROCEDURE, CARE OF ACCESS DEVICE, SIGNS AND SYMPTOMS OF ACCESS DEVICE COMPLICATIONS AND, CARE AND USE OF INFUSION EQUIPMENT. [code = IV THERAPY MANAGEMENT; RN TO ASSESS AND TEACH, BLACK PULLER/BUSINESS CONTINUITY GLOBAL DIRECTOR TO OBSERVE AND TEACH ON IV ACCESS SITE RUE PICC LINE, RESPONSE TO MEDICATION. RN/BLACK PULLER/BUSINESS CONTINUITY GLOBAL DIRECTOR FOR SKILLED TEACHING REGARDING INFUSION PROCEDURE, CARE OF ACCESS DEVICE, SIGNS AND SYMPTOMS OF ACCESS DEVICE COMPLICATIONS AND, CARE AND USE OF INFUSION EQUIPMENT.] Future Scheduled Test IV THERAPY ADMINISTRATION; RN/BUSINESS CONTINUITY GLOBAL DIRECTOR/BLACK PULLER TO OBTAIN IV ACCESS VIA PICC LINE RN/BUSINESS CONTINUITY GLOBAL DIRECTOR/BLACK PULLER TO INFUSE AND/OR TEACH PATIENT/CAREGIVER INFUSION OF AMPICILLIN, CEFTRIAXONE VIA PUMP/SYRINGE. CHANGE PRN FOR LOOSE OR SOILED DRESSINGS. INJECTION CAP CHANGE EVERY WEEK AND WITH EACH LAB DRAW AND PRN FOR CONTAMINATION OR MALFUNCTION. EXTENSION TUBING TO BE CHANGED WEEKLY AND WITH EACH LAB DRAW AND PRN FOR PROBLEMS. SKIN PREP PRN; SECUREMENT DEVICE PRN. BIOPATCH PRN FOR REDNESS OR NEUTROPENIA. RN/BUSINESS CONTINUITY GLOBAL DIRECTOR/BLACK PULLER TO PERFORM/INSTRUCT PATIENT/CAREGIVER TO FLUSH IV ACCESS WITH NS RN/BUSINESS CONTINUITY GLOBAL DIRECTOR/BLACK PULLER TO PERFORM SITE CARE FOR INFUSION ACCESS DEVICE PICC LINE WITH DRESSING CHANGE TO INCLUDE PICC LINE DRESSING CHANGE WEEKLY RN/BUSINESS CONTINUITY GLOBAL DIRECTOR/BLACK PULLER TO CLEANSE ACCESS SITE WITH CLEANSER ALLOW TO AIR DRY AND THEN APPLY DRESSING WEEKLY [code = IV THERAPY ADMINISTRATION; RN/BUSINESS CONTINUITY GLOBAL DIRECTOR/BLACK PULLER TO OBTAIN IV ACCESS VIA PICC LINE RN/BUSINESS CONTINUITY GLOBAL DIRECTOR/BLACK PULLER TO INFUSE AND/OR TEACH PATIENT/CAREGIVER INFUSION OF AMPICILLIN, CEFTRIAXONE VIA PUMP/SYRINGE. CHANGE PRN FOR LOOSE OR SOILED DRESSINGS. INJECTION CAP CHANGE EVERY WEEK AND WITH EACH LAB DRAW AND PRN FOR CONTAMINATION OR MALFUNCTION. EXTENSION TUBING TO BE CHANGED WEEKLY AND WITH EACH LAB DRAW AND PRN FOR PROBLEMS. SKIN PREP PRN; SECUREMENT DEVICE PRN. BIOPATCH PRN FOR REDNESS OR NEUTROPENIA. RN/BUSINESS CONTINUITY GLOBAL DIRECTOR/BLACK PULLER TO PERFORM/INSTRUCT PATIENT/CAREGIVER TO FLUSH IV ACCESS WITH NS RN/BUSINESS CONTINUITY GLOBAL DIRECTOR/BLACK PULLER TO PERFORM SITE CARE FOR INFUSION ACCESS DEVICE PICC LINE WITH DRESSING CHANGE TO INCLUDE PICC LINE DRESSING CHANGE WEEKLY RN/BUSINESS CONTINUITY GLOBAL DIRECTOR/BLACK PULLER TO CLEANSE ACCESS SITE WITH CLEANSER ALLOW TO AIR DRY AND THEN APPLY DRESSING WEEKLY] Future Scheduled Test LAB DRAW V IA VASCULAR ACCESS DEVICE; RN/BUSINESS CONTINUITY GLOBAL DIRECTOR/BLACK PULLER TO PERFORM LAB DRAW FROM ACCESS DEVICE. DRAW CBC W/DIFF, BUN, SRCR, AND LFT'S, CRP EVERY SATURDAY. RN/BUSINESS CONTINUITY GLOBAL DIRECTOR/BLACK PULLER TO DRAW LABS VIA VENIPUNCTURE PRN IF UNABLE TO DRAW VIA VASCULAR ACCESS DEVICE. FAX LABS TO: [facility] ATTN: MD NOAM. FAX # [phone] [code = LAB DRAW VIA VASCULAR ACCESS DEVICE; RN/BUSINESS CONTINUITY GLOBAL DIRECTOR/BLACK PULLER TO PERFORM LAB DRAW FROM ACCESS DEVICE. DRAW CBC W/DIFF, BUN, SRCR, AND LFT'S, CRP EVERY SATURDAY. RN/BUSINESS CONTINUITY GLOBAL DIRECTOR/BLACK PULLER TO DRAW LABS VIA VENIPUNCTURE PRN IF UNABLE TO DRAW VIA VASCULAR ACCESS DEVICE. FAX LABS TO: [facility] ATTN: MD NOAM. FAX # [phone]] Future Scheduled Test PRN VISITS ; NUMBER OF RN/BUSINESS CONTINUITY GLOBAL DIRECTOR/BLACK PULLER VISITS: 2 RN/BUSINESS CONTINUITY GLOBAL DIRECTOR/BLACK PULLER TO PERFORM: ASSESSMENT FOR THE FOLLOWING REASONS: SOB, ALTERED MENTAL STATUS, PICC LINE CARE, LABS [code = PRN VISITS; NUMBER OF RN/BUSINESS CONTINUITY GLOBAL DIRECTOR/BLACK PULLER VISITS: 2 RN/BUSINESS CONTINUITY GLOBAL DIRECTOR/BLACK PULLER TO PERFORM: ASSESSMENT FOR THE FOLLOWING REASONS: [...] End Date/Time Encounter Type Admission Type Attending [facility] Care Department Encounter ID Discharge Date Discharge Status Discharge Condition Discharge Reason Percent Goals Met 2024-06-02 00:00:00 2024-07-31 00:00:00 Outpatient RECERTIFIC ATION KAYLAN CHACON [facility] [id number] 2024-07-31 00:00:00 DISCHARGE TO HOME OR SELF CARE INDEPENDEN T IN THE HOME HH - PER CLIENT AND/OR CAREGIVER REQUEST 19.44
--- OUTSIDE RECORDS SUMMARY | 2024-09-24 14:52 | XMS_ITS | Encounter Summary ---
Author Organization [place] [address] Care Team Providers Care Security Services Manager Name Role Phone Viridiana Oropeza MD Primary Care Provider [phone] Pankaj Navarro MD Unavailable [phone] Reason for Visit * Reason Onset Date Comments Hospital Follow Up 07/28/2024 Encounter Details Date Type Department Care Team (Late st Contact Info) Description 07/28/2024 Patient Outreach SEP Care Managment [facility] Marco Antonio Moya [address]. [address] Appointment Location May Differ [place] [phone] Lexis Kahn RN Hospital Follow Up Social History Tobacco Use Types Packs/Day Years Used Date Smoking Tobacco: Never Passive Smoke Exposure: Never Smokeless Tobacco: Never Alcohol Use Standard Drinks/Week Comments No 0 (1 standard drink = 0.6 oz pur e alcohol) [facility] Utilities Answer Date Recorded In the past 12 months has [employer], gas, oil, or water company threatened to shut off services in your home? No 07/22/2024 Overall Financial Resource Strain (CARDIA) Answe r Date Recorded How hard is it for you to pa y for the very basics like food, housing, medical care, and heating? Not hard at all 07/22/2024 PHQ-2 Answer Date Recorded PHQ-2 Total Score 0 07/22/2024 [facility] [place] of Occupat ional Health - Occupational Stress [...] things needed for daily living? No 01/21/2020 [facility] IP Transportation Answer D ate Recorded [...] can return call to Lexis Kahn RN Decal Transferrer Care Management Team [facility] [phone] documented in this encounter Plan of Treatment [...] documented as of this encounter Care Teams Security Services Manager Relationship Specialty Start Date End Date Viridiana Oropeza MD [address] [place] [address] PCP - General 01/19/09 09/14/24 Pankaj Navarro MD [address] [place] [address] [address] [place] [address] Physician Otolaryngology 09/18/23 documented as of this encounter
--- OUTSIDE RECORDS SUMMARY | 2024-09-24 14:52 | XMS_ITS | Encounter Summary ---
Author Organization [place] [address] Care Team Providers Care Distillery Worker General Name Role Phone Viridiana Oropeza MD Primary Care Provider [phone] Pankaj Navarro MD Unavailable [phone] Reason for Visit * Reason Onset Date Comments CM- Telephonic Outreach 07/30/2024 Hospital Follow Up 07/30/2024 Encounter Details Date Type Department Care Team (Late Contact Info) Description 07/30/2024 Patient Outreach SEP Care Managment [address] Appointment Location May Differ [place] [phone] Wen Ayers, RN CM- Telephonic Outreach; Hospital Follow Up Social History Tobacco Use Types Packs/Day Years Used Date Smoking Tobacco: Never Passive Smoke Exposure: Never Smokeless Tobacco: Never Alcohol Use Standard Drinks/Week Comments No 0 (1 standard drink = 0.6 oz pur e alcohol) [facility] Utilities Answer Date Recorded In the past 12 months has [employer], gas, oil, or water [employer] threatened to shut off services in your home? No 07/22/2024 Overall Financial Resource Strain (CARDIA) Answe r Date Recorded How hard is it for you to pa y for the very basics like food, housing, medical care, and heating? Not hard at all 07/22/2024 PHQ-2 Answer Date Recorded PHQ-2 Total Score 0 07/22/2024 [facility] [employer] of Occupat ional Health - Occupational Stress [...] things needed for daily living? No 01/21/2020 [facility] IP Transportation Answer D ate Recorded [...] Patient can return call to Wen Ayers [phone] documented in this encounter Plan of Treatment [...] documented as of this encounter Care Teams Distillery Worker General Relationship Specialty Start Date End Date Viridiana Oropeza MD [address] [place] [address] PCP - General 01/19/09 09/14/24 Pankaj Navarro MD [address] [place] [address] Physician Otolaryngology 09/18/23 documented as of this encounter
--- NOTE | 2024-09-24 14:53 | XR_ITS ---
FINAL REPORT CLINICAL HISTORY: pain numbness shooting pain up arms COMPARISON: None FINDINGS: Three views of the left hand show no evidence of acute displaced fracture or dislocation of the visualized bony architecture. There are mild diffuse osteoarthritic changes. IMPRESSION: Mild degenerative changes. Reviewed, Interpreted and Dictated by Mechelle Roman MD Transcribed by Yeni Gomes Authenticated and . [facility]
--- NOTE | 2024-09-24 14:53 | XR_ITS ---
FINAL REPORT CLINICAL HISTORY: pain numbness shooting pain up arms COMPARISON: None FINDINGS: Three views of the right hand show no evidence of acute displaced fracture or dislocation of the visualized bony architecture. There are mild diffuse osteoarthritic changes. An accessory ossicle versus old ulnar styloid process fracture is noted. There is a curvilinear radiopaque foreign body in the 1st digit adjacent to the proximal phalanx measuring up to 2 mm. IMPRESSION: Mild degenerative changes. Reviewed, Interpreted and Dictated by Mechelle Roman MD Transcribed by Yeni Gomes Authenticated and [facility]
--- NOTE | 2024-09-24 14:53 | XR_ITS ---
FINAL REPORT CLINICAL HISTORY: neck pain lump on right anterior side of neck x 1 month COMPARISON: None FINDINGS: Three views of the cervical spine were obtained. No fracture is present. Alignment is normal. No prevertebral soft tissue swelling is seen. There is mild diffuse degenerative disc disease. No evidence of bony destruction or erosion. IMPRESSION: Mild degenerative changes. Reviewed, Interpreted and Dictated by Mechelle Roman MD Transcribed by Yeni Gomes Authenticated and . [facility]
--- OUTSIDE RECORDS SUMMARY | 2024-09-24 14:53 | XMS_ITS | Encounter Summary ---
Author Organization Healthcare Address [address] [place] [address] Care Team Providers Care Bundle Clerk Name Role Phone Viridiana Oropeza MD Primary Care Provider [phone] Gerardo Mcbride Unavailable [phone] Encounter Details Date Type Department Care Team (Late st Contact Info) Description 08/05/2024 Telephone [facility] [address] [place] [address] Roxana Wagoner Social History Tobacco [...] How often do you attend chur or yarsani services? Patient unable to answer 05/04/2024 Do you belong to any clubs o r organizations such as shinto groups, unions, fraternal or athletic groups, or [...] Recorded Patient Health Questionnaire-2 Score 0 06/15/2024 [facility] - Occupational Stress Questionnaire Answer [...] any time in the past 12 m [facility], were you homeless or living in a [place] health care facility (including now)? No 05/04/2024 Utilities Answer Date [...] 3:10 PM EDT Wilfredo Forte MD P [facility] Clinical Dehydration Plant Operator I saw Mr. Chauhan two weeks ago. His labwork showed elevated CRP, WBC 21 and newly elevated creatinine consistent with renal failure. I contacted him and advised him to go to the ED for evaluation. He was going to do that at [facility] but I dont see that he did that. Can someone follow up with him and see if he went somehwere for evaluation. Updated Care Everywhere and notified the provider the patient was seen in the ED at [facility] and admitted. Updated records and results crossed over to [facility]. * Telephone Encounter - Roxana [...] documented as of this encounter Care Teams Bundle Clerk Relationship Specialty Start Date End Date Viridiana Oropeza MD [address] [place] [address] PCP - General 03/13/22 Gerardo Mcbride [address] [place] [address] 08/23/23 documented as of this encounter
--- OUTSIDE RECORDS SUMMARY | 2024-09-24 14:53 | XMS_ITS | Encounter Summary ---
Author Organization [place] [address] Care Team Providers Care Gang Vibrator Operator Name Role Phone Viridiana Oropeza MD Primary Care Provider [phone] Pankaj Navarro MD Unavailable [phone] Reason for Visit * Reason Onset Date Comments Refill 08/07/2024 Oxycodone - refi ll Encounter Details Date Type Department Care Team (Late Contact Info) Description 08/07/2024 Telephone [facility] [address] [place] [address] Viridiana Oropeza MD [address] [place] [address] Refill (Oxycodone - refill ) Social History Tobacco Use Types Packs/Day Years Used Date Smoking Tobacco: Never Passive Smoke Exposure: Never Smokeless Tobacco: Never Alcohol Use Standard Drinks/Week Comments No 0 (1 standard drink = 0.6 oz pur e alcohol) [facility] Utilities Answer Date Recorded In the past 12 months has [employer], gas, oil, or water [employer] threatened to shut off services in your home? No 07/22/2024 Overall Financial Resource Strain (CARDIA) Answe r Date Recorded How hard is it for you to pa y for the very basics like food, housing, medical care, and heating? Not hard at all 07/22/2024 PHQ-2 Answer Date Recorded PHQ-2 Total Score 0 07/22/2024 [facility] [place] of Occupat ional Health - Occupational Stress [...] things needed for daily living? No 01/21/2020 [facility] IP Transportation Answer D ate [...] Sawyer LPN - 08/07/2024 8:40 AM EDT Pharmacy:[id number] - [place] [address] [address] [phone] Controlled Contract Updated / Signed 08/17/2022- [facility] Informed Consent Updated / Signed 08/17/2022 [...] w/ prescribing provider: 09/16/24 Pharmacy & Location: [facility] [address] [place] [address] [address] - Return Method of Communication: [...] documented as of this encounter Care Teams Gang Vibrator Operator Relationship Specialty Start Date End Date Viridiana Oropeza MD [address] [place] [address] PCP - General 01/19/09 09/14/24 Pankaj Navarro MD [address] [place], [place] [id number] Physician Otolaryngology 09/18/23 documented as of this encounter
--- OUTSIDE RECORDS SUMMARY | 2024-09-24 14:53 | XMS_ITS | Clinical Summary ---
Author Organization [facility] Address [address] [address] Phone Care Team Providers Care Material Worker Name Role Phone Pankaj Navarro MD Unavailable [phone] Viridiana Oropeza MD Primary Care Provider [phone] Allergies Active Allergy Reactions Criticality Noted Date [...] 0.4 mg Oral Capsule 0.4 mg daily. 5 Active triamcinolone (KENALOG) 0.1 % Top CreamIndications [...] migh t be different from the original. Pharmacy:[id number] - [place] [address] [phone] [phone] Controlled Contract Updated / Signed 08/17/2022- [facility] Informed Consent Updated / Signed 08/17/2022 UDS [...] Encounters Date Type Department Care Team Description 09/22/2024 Telephone [facility] [address] [place], [place] [id number] Johnathan Parrish MD Relaying Information (FAX) 09/15/2024 Patient Outreach [facility] [address] [place] [address] Viridiana Oropeza MD Central Patient Navigator Outreach (AWV Questionnaire) 08/07/2024 Telephone [facility] [address] [place] [address] Viridiana Oropeza MD Refill (Oxycodone - refill ) 07/30/2024 Patient Outreach [facility] [address] [place] [address] Wen Ayers, DAVID CM- Telephonic Outreach; Hospital Follow Up 07/28/2024 Patient Outreach [facility] [address] [place] [address] Lexis Kahn RN Hospital Follow Up 07/21/2024 4:39 PM EDT - 07/26/2024 4:06 PM EDT Hospital Encounter EDG [address] [place] [address] Cat Jules MD Buchanan, Jamie L, DO ZAC (acute kidney injury) (Primary Dx); Pancolitis (HCC) Discharge Disposition: Home or Self Care 07/21/2024 Travel 07/07/2024 Telephone [facility] [address] [place] [address] Viridiana Oropeza MD Refill (Percocet refill request) 06/27/2024 10:42 AM EDT - 06/27/2024 12:11 PM EDT [facility] [place] [id number] Mango Carvajal MD Allergic drug rash (Primary Dx) Discharge Disposition: Home or Self Care 06/27/2024 Travel from Last 3 Months Immunizations Immunization [...] COLONOSCOPY ; Surgeon: Pankaj Chavez MD; Location: [facility] ENDOSCOPY; Service: Endoscopy HIP SURGERY 02/11/1995 - [...] drink = 0.6 oz pur e alcohol) [facility] Utilities Answer Date Recorded In the [...] Date Recorded PHQ-2 Total Score 0 07/22/2024 [facility] - Occupational Stress [...] things needed for daily living? No 01/21/2020 [facility] IP Transportation Answer D ate Recorded [...] Vaccine ( - season) 2023 03/27/2023, 08/17/2021 DTaP/TDaP/Td (2 [...] Chicas, DAVID Medical Devices Implanted Type Area Supervisor Wood Room Device Identifier Shelf Expiration Date Model / [...] WITH DIFF STAT 07/21/2024 4:01 PM EDT HEMOGLOBIN A1C Routine 04/28/2024 11:37 [...] - 100 mg/dL 07/26/2024 11:21 AM EDT [facility] Sample Type Capillary 07/26/2024 11:21 AM EDT [facility] Patient Status Non-Critical Patient 07/26/2024 11:21 AM EDT [facility] Blood BLOOD SPECIMEN / Unknown 07/26/2024 11:20 AM EDT 07/26/2024 11:21 AM EDT us Anil Thompson DO POINT OF CARE TEST ORDERABLE S Final Result Performing Organization Address [facility] Co de Phone Number [facility] [address] [place], [place] [id number] * ECG AND WAVEFORMS - TELEMETRY (07/26/2024 7:58 AM EDT) Only the most recent of8 resultswithin the time period is included. ECG INTERPRET Sinus with IVCD [facility] 07/26/2024 7:58 AM EDT Narrative [facility] - 07/26/2024 8:03 AM EDT EH - ROUTINE MD 0.20 QRS 0.11 RR 0.88 QT 0.37 QTc 0.39 See Clinical Report link for waveform capture us Unknown Provider POINT OF CARE CARDIOLOGY Final Result [facility] [address] [place] [id number] * (ABNORMAL) CBC WITH DIFF (07/26/2024 6:09 AM EDT) Only the most recent of5 resultswithin the time period is included. WBC [...] 7:44 AM EDT [facility] [place] Percent 6.1 % 07/26/2024 7:44 AM EDT [facility] Eos Percent 4.2 % 07/26/2024 7:44 AM EDT [facility] Baso Percent 0.4 % 07/26/2024 7:44 AM EDT [facility] Neut # 4.9 1.6 - 6.1 x10(3)/[facility] 07/26/2024 7:44 AM EDT [facility] Comment:Neutrophils equals s egs plus bands IMMGRAN# 0.1 0.0 - 0.1 x10(3)/[facility] 07/26/2024 7:44 AM EDT [facility] Comment:Automated count of m etamyelocytes, myelocytes and promyelocytes. An absolute IG <0.1 is reported as 0.0. Lymph # 4.9(H) 1.2 - 3.9 x10(3)/[facility] 07/26/2024 7:44 AM EDT [facility] [place] # 0.7 0.3 - 0.9 x10(3)/[facility] 07/26/2024 7:44 AM EDT [facility] Eos# 0.5 0.0 - 0.5 x10(3)/[facility] 07/26/2024 7:44 AM EDT [facility] Baso # 0.0 0.0 - 0.1 x10(3)/[facility] 07/26/2024 7:44 AM EDT [facility] Blood VENOUS BLOOD / Unknown Venipuncture / Unknown 07/26/2024 6:09 AM EDT 07/26/2024 7:29 AM EDT us Anil Thompson DO HEMATOLOGY ORDERABLES Final Result [facility] [address] [facility] , [place] [address] * EC ECHOCARDIOGRAM LIMITED (07/25/2024 [...] - 99 mg/dL 07/25/2024 8:18 AM EDT [facility] BUN 13 8 - 23 mg/dL 07/25/2024 8:18 AM EDT [facility] Creatinine 1.40(H) 0.67 - 1.30 mg/dL 07/25/2024 8:18 AM EDT [facility] eGFR (CKD-EPIcr 2020) 55(L) >=60 mL/min/1.7 3 m2 07/25/2024 8:18 AM EDT [facility] Comment:Estimated GFR was ca lculated using the CKD-EPIcr (2020) equation refit without race. The equation is recommended by the National Kidney Foundation - [place] [employer] of Nephrology Task Force. Blood VENOUS BLOOD / Unknown Venipuncture / Unknown 07/25/2024 6:23 AM EDT 07/25/2024 7:43 AM EDT us Anil Thompson DO CHEMISTRY ORDERABLES Final R esult Performing Organization Address [facility] Co de Phone Number [address] , [place] [address] * BLOOD CULTURE (NO STAIN) (07/23/2024 8:10 AM EDT) Only the most recent of4 resultswithin the time period is included. Culture Result No Growth at 120 hours. BLOOD CULTURE (NO STAIN) 07/28/2024 9:00 AM EDT [facility] Blood VENOUS BLOOD / Unknown Venipuncture / Unknown 07/23/2024 8:10 AM EDT 07/23/2024 8:20 AM EDT us Chapo Calvin MD MICROBIOLOGY - GENERAL ORDER ARJUN Final Result Performing Organization Address [facility] Co de Phone Number [address] , [place] [address] * (ABNORMAL) SEDIMENTATION RATE AUTOMATED (07/23/2024 8:10 AM EDT) Only the most recent of2 resultswithin the time period is included. Sed Rate 39(H) 0 - 20 mm/hr 07/23/2024 9:28 AM EDT [facility] Blood VENOUS BLOOD / Unknown Venipuncture / Unknown 07/23/2024 8:10 AM EDT 07/23/2024 8:21 AM EDT Chapo Calvin MD HEMATOLOGY ORDERABLES Final Result Performing Organization Address [facility] de Phone Number [facility] [address] [place] [address] , [place] [address] * (ABNORMAL) C-REACTIVE PROTEIN (07/23/2024 8:10 AM EDT) Only the most recent of2 resultswithin the time period is included. CRP 94.55(H) <=5.00 mg/L 07/23/2024 12:34 PM EDT [facility] Blood VENOUS BLOOD / Unknown Venipuncture / Unknown 07/23/2024 8:10 AM EDT 07/23/2024 8:21 AM EDT Chapo Calvin MD CHEMISTRY ORDERABLES Final R esult Performing Organization Address [facility] de Phone Number [facility] [address] [place] [address] , [place] [address] * (ABNORMAL) CREATINE KINASE (07/23/2024 8:10 AM EDT) CK 13(L) 39 - 308 U/L 07/23/2024 12:34 PM EDT [facility] Blood VENOUS BLOOD / Unknown Venipuncture / Unknown 07/23/2024 8:10 AM EDT 07/23/2024 8:21 AM EDT Chapo Calvin MD CHEMISTRY ORDERABLES Final R esult Performing Organization Address [facility] Co de Phone Number [facility] [address] [facility] , [place] [address] * (ABNORMAL) COMPREHENSIVE METABOLIC PANEL (07/23/2024 8:10 [...] 9:14 AM EDT [facility] eGFR (CKD-EPIcr 2020) 45(L) >=60 mL/min/1.7 3 m2 07/23/2024 9:14 AM EDT [facility] Comment:Estimated GFR was ca lculated using the CKD-EPIcr (2020) equation refit without race. The equation is recommended by the National Kidney Foundation - [place] [employer] of Nephrology Task Force. Blood VENOUS BLOOD / Unknown Venipuncture / Unknown 07/23/2024 8:10 AM EDT 07/23/2024 8:21 AM EDT us Chapo Calvin MD CHEMISTRY ORDERABLES Final R esult Performing Organization Address City/[facility]/ZIP Co de Phone Number [facility], [address] , [place] [address] * (ABNORMAL) C DIFF INTERPRETATION [...] EDT [facility] Stool RECTUM STRUCTURE / Unknown 07/22/2024 12:04 PM EDT 07/22/2024 12:11 PM EDT Narrative [facility] - 07/22/2024 1:41 PM EDT Toxin producing C diff target DNA sequences detected. Toxins A/B positive. CDI likely. Consider initiation of severity-based CDI therapy according to CDI management guidance. us Anil Thompson DO MICROBIOLOGY - GENERAL ORDER ARJUN Final Result Performing Organization Address City/[facility]/ZIP Co de Phone Number [facility], [address] , [place] [address] * C DIFF GDH AG AND TOXIN A+B (07/22/2024 12:04 PM EDT) Stool RECTUM STRUCTURE / Unknown 07/22/2024 12:04 PM EDT 07/22/2024 12:11 PM EDT Anil Thompson DO MICROBIOLOGY - GENERAL ORDER ARJUN Final Result Performing Organization Address City/[facility]/ZIP Co de Phone Number [facility] [address] [facility] [facility] , [address] [place] [phone] * C DIFF TOXIN DNA (07/22/2024 12:04 PM EDT) Stool RECTUM STRUCTURE / Unknown 07/22/2024 12:04 PM EDT 07/22/2024 12:11 PM EDT Anil Thompson DO MICROBIOLOGY - GENERAL ORDER ARJUN Final Result Performing Organization Address [facility] Co de Phone Number [facility] [address] [facility] [facility] , [place] [address] * SHIGA TOXIN (07/22/2024 12:04 PM EDT) Shiga Toxin Shiga toxins (produced by E. coli) not detected. Shiga toxins (produced by E. coli) not detected. 07/23/2024 5:08 PM EDT [facility] Stool RECTUM STRUCTURE / Unknown 07/22/2024 12:04 PM EDT 07/22/2024 9:23 PM EDT Anil Thompson DO MICROBIOLOGY - GENERAL ORDER ARJUN Final Result Performing Organization Address City/[facility]/ZIP Co de Phone Number [facility], [facility] [address] [facility] , [place] [address] * STOOL CULTURE (NO STAIN) (07/22/2024 12:04 PM EDT) Culture No growth of enteric pathogens, including Salmonella, Shigella, Campylobacter, Vibrio, Yersinia, Aeromonas, Plesiomonas, or E. coli O157. 07/24/2024 7:50 AM EDT [facility] Stool RECTUM STRUCTURE / Unknown 07/22/2024 12:04 PM EDT 07/22/2024 12:11 PM EDT Anil Thompson DO MICROBIOLOGY - GENERAL ORDER ARJUN Final Result Performing Organization Address [facility] Co de Phone Number [facility], [address] , [place] [address] * OVA AND PARASITE BASIC (07/22/2024 12:04 PM EDT) Giardia Lamblia Antigen Not Detected Not detected 07/22/2024 6:39 PM EDT [facility] Cryptosporidium Exam Not Detected Not Detected 07/22/2024 6:39 PM EDT [facility], [facility] Stool RECTUM STRUCTURE / Unknown 07/22/2024 12:04 PM EDT 07/22/2024 12:11 PM EDT Anil Thompson DO MICROBIOLOGY - GENERAL ORDER ARJUN Final Result Performing Organization Address [facility] Co de Phone Number [facility], [address] , [place] [address] * US RENAL AND BLADDER (07/22/2024 10:53 [...] evaluation of the kidneys and bladder with merchandising representative images and manager hotel notes sent to PACS for radiologist review. [...] sonographic evaluation of the kidneys andbladder with merchandising representative images and manager hotel notes sent to PACS forradiologist review. FINDINGS: [...] of the ordering clinician. Anil Thompson DO IM US ORDERABLES Final Resu lt * (ABNORMAL) CBC (07/22/2024 4:45 AM EDT) WBC 20.0(H) 3.7 - 10.3 x10(3)/mcL 07/22/2024 6:40 AM EDT [facility] RBC 3.48(L) 4.60 - 6.10 x10(6)/mcL 07/22/2024 [...] 07/22/2024 6:40 AM EDT [facility] MCHC 30.1(L) 30.7 - 35.5 g/dL 07/22/2024 6:40 AM EDT [facility] RDW 15.6(H) <=14.9 % 07/22/2024 6:40 AM EDT [facility] Platelet 266 155 - 369 x10(3)/mcL 07/22/2024 6:40 AM EDT [facility] MPV 9.9 8.8 - 12.5 fL 07/22/2024 6:40 AM EDT [facility] Blood VENOUS BLOOD / Unknown Venipuncture / Unknown 07/22/2024 4:45 AM EDT 07/22/2024 5:07 AM EDT us Nury Mcdermott APRN HEMATOLOGY ORDERABLES Final R esult [facility] [address] [address] , [place] [address] * VANCOMYCIN LEVEL (07/22/2024 4:45 AM EDT) Vanco Random 14.6 mcg/mL 07/22/2024 5:44 AM EDT [facility] Blood VENOUS BLOOD / Unknown Venipuncture / Unknown 07/22/2024 4:45 AM EDT 07/22/2024 5:07 AM EDT us Cat Jules MD CHEMISTRY ORDERABLES Final Result [facility] [address] [facility] , [place] [address] * (ABNORMAL) URINALYSIS REFLEX (07/21/2024 6:04 PM [...] /HPF 07/21/2024 6:17 PM EDT [facility] Urine STRUCTURE OF URINARY TRACT PROPER / Unknown 07/21/2024 6:04 PM EDT 07/21/2024 6:09 PM EDT Cat Jules MD URINE ORDERABLES Final Res ult Performing Organization Address City/[facility]/ZIP Co de Phone Number [facility] [address] [address] , [place] [address] * EXTRA BE URINE CX (07/21/2024 6:04 PM EDT) Urine STRUCTURE OF URINARY TRACT PROPER / Unknown 07/21/2024 6:04 PM EDT 07/21/2024 6:09 PM EDT Cat Jules MD MICROBIOLOGY - GENERAL ORD ERABLES Final Result Performing Organization Address [facility] Co de Phone Number [place] [phone] * URINE CULTURE (NO STAIN) (07/21/2024 6:04 PM EDT) Culture Multiple bacterial species isolated from urine consistent with urogenital commensal organisms. 07/23/2024 3:11 AM EDT [facility] Urine STRUCTURE OF URINARY TRACT PROPER / Unknown 07/21/2024 6:04 PM EDT 07/21/2024 6:17 PM EDT Cat Jules MD MICROBIOLOGY - GENERAL ORD ERABLES Final Result Performing Organization Address City/[facility]/ZIP Co de Phone Number [facility], [facility] [address] , [place] [address] * (ABNORMAL) PROCALCITONIN (07/21/2024 5:42 PM EDT) Procalcitonin 0.50(H) <=0.49 ng/mL 07/21/2024 6:35 PM EDT [facility] Blood VENOUS BLOOD / Unknown Venipuncture / Unknown 07/21/2024 5:42 PM EDT 07/21/2024 5:51 PM EDT Narrative [facility] - 07/21/2024 6:35 PM [...] CHEMISTRY ORDERABLES Final Result Performing Organization Address City/[facility]/ZIP Co de Phone Number [facility] [address], [place] [address] * LACTIC ACID (07/21/2024 5:42 PM EDT) Lactic Acid 1.2 0.5 - 1.9 mmol/L 07/21/2024 5:59 PM EDT [facility] Blood VENOUS BLOOD / Unknown Venipuncture / Unknown 07/21/2024 5:42 PM EDT 07/21/2024 5:45 PM EDT Cat Jules MD CHEMISTRY ORDERABLES Final Result Performing Organization Address City/[facility]/ZIP Co de Phone Number [facility] [address] [place] [address] * XR CHEST AP PORTABLE (07/21/2024 [...] RAGHAV GRAM POS (07/21/2024 4:58 PM EDT) Pathologist [facility] BACILLUS CEREUS GROUP Not Detected Not Detected [...] 07/22/2024 6:26 PM EDT [facility] STREPTOCOCCUS PYOGENES (GROUP A) Not Detected Not Detected 07/22/2024 6:26 PM EDT [facility], [facility] mecA Not Detected. Methicillin Resistance due to other mechanisms cannot be excluded. 07/22/2024 6:26 PM EDT [facility], [facility] mecC Not Detected. Methicillin Resistance due to other mechanisms cannot be excluded. 07/22/2024 6:26 PM EDT [facility] Blood VENOUS BLOOD / Unknown Venipuncture / Unknown 07/21/2024 4:58 PM EDT 07/21/2024 5:02 PM EDT us Cat Jules MD MICROBIOLOGY - GENERAL ORD ERABLES Final Result Performing Organization Address [facility]/ZIP Co de Phone Number [facility] , [place] [address] * (ABNORMAL) HEMOGLOBIN A1C (04/28/2024 11:37 AM EDT) [facility] Hgb A1C 6.4(H) 4.2 - 5.6 % 04/28/2024 10:06 PM EDT [facility], [facility] Est. Avg Glucose 137 mg/dL 04/28/2024 10:06 PM EDT [facility] Blood VENOUS BLOOD / Unknown Venipuncture / Unknown 04/28/2024 11:37 AM EDT 04/28/2024 11:37 AM EDT Narrative [facility] - 04/28/2024 10:06 PM EDT REFERENCE [...] ORDERABLES Final Resu lt Performing Organization Address City/[facility]/ZIP Co de Phone Number [facility] [address] , [place] [address] [facility] [address] [place] [address] * (ABNORMAL) LIPID SCREEN (01/06/2024 11:42 AM EST) Cholesterol 141 <200 mg/dL 01/06/2024 4:22 PM EST [facility] Comment: < 200 Desirable 200 - 239 Borderline High >= 240 High Triglyceride 179(H) <150 mg/dL 01/06/2024 4:22 PM EST [facility] Comment: < 150 Normal 150 - 199 Borderline High 200 - 499 High >= 500 Very High HDL 34(L) >=40 mg/dL 01/06/2024 4:22 PM EST [facility] Comment: > 60 Optimal 40 - 60 Acceptable < 40 Low LDL Calculated 76 <100 mg/dL 01/06/2024 4:22 PM EST [facility] Comment: < 100 Optimal 100 - 129 Near or above optimal 130 - 159 Borderline High 160 - 189 High >= 190 Very High Non-HDL-C Calculated 107 <=129 mg/dL 01/06/2024 4:22 PM EST [facility] Comment: <130 Desirable 130-159 Above Desirable 160-189 Borderline High 190-219 High >= 220 Very High Fasting Specimen? Yes None 024 4:22 PM EST [facility] Blood VENOUS BLOOD / Unknown Venipuncture / Unknown 01/06/2024 11:42 AM EST 01/06/2024 11:42 AM EST us Viridiana Oropeza MD CHEMISTRY ORDERABLES Final Resu lt [facility], [facility] [address] [facility] [address] [place] [address] [facility] [address] [place] [address] * MICROALBUMIN/CREATININE RATIO URINE (06/26/2023 2:30 PM EDT) Urine Microalb 27.3 mg/L 06/26/2023 10:34 PM EDT [facility] Urine Creatinine 189.4 mg/dL 06/26/2023 10:34 PM EDT [facility] Ur Microalb/Creat 14 0 - 30 mg/g 06/26/2023 10:34 PM EDT [facility] Urine URINE SPECIMEN COLLECTION / Unknown 06/26/2023 2:30 PM EDT 06/26/2023 2:30 PM EDT Viridiana Oropeza MD URINE ORDERABLES Final Result Performing Organization Address [facility] Co de Phone Number [facility], [facility] [address] [facility], [place] [address] * DIABETES EYE EXAM (11/19/2017) Left Diabetic Retinopathy Not Present Present/Not Present SEP OFFICE Right Diabetic Retinopathy Not Present Present/Not Present SEP OFFICE Viridiana Oropeza MD HEALTH MAINTENANCE Final Result Performing Organization Address [facility] de Phone Number SEP OFFICE * GMED COLONOSCOPY (06/16/2015 10:15 AM EDT) 06/16/2015 10:1 5 AM EDT Impressions [facility] - 06/16/2015 11:43 AM EDT Grade 1 internal hemorrhoids. Normal mucosa in the whole colon. Plan: Screening Colonoscopy in 10 years. This section is an excerpt of the full report. Pankaj Chavez MD GI PROCEDURE ORDERABLES Jaimee l Result Performing Organization Address [facility] Co de Phone Number [facility] [address] [place] [address] * HEPATITIS C ANTIBODY IGM + IGG (01/24/2011 10:10 AM EST) Hep C Ab Negative Negative [facility] Blood specimen (specimen) VENOUS STRUCTURE / Unknown 01/24/2011 10:10 AM EST 01/24/2011 10:21 AM EST Nereida Valle MD IMMUNOLOGY ORDERABLES Fin al Result Performing Organization Address 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 07/22/2024 [place] [id number] MDR MEDICARE PART B [place] [id number] [place] [address] [facility] [place] [address] MDR MEDICARE PART B MEDICARE PART B [facility] [id number] [facility] [place] [address] MDR Advance Directives For more information, please contact: [phone] * Full Code (Latest Code Status on File) Date Activated Date Inactivated Comments 07/21/2024 8:09 PM 07/26/2024 8:11 PM * Full Code Date Activated Date Inactivated Comments 08/28/2023 10:07 PM 09/03/2023 5:46 PM Care Teams Material Worker Relationship Specialty Start Date End Date Viridiana Oropeza MD [address] [place] [address] PCP - General Family Medicine 09/23/24 Pankaj Navarro MD [address] [place] [id number] Physician Otolaryngology 09/18/23
--- OUTSIDE RECORDS SUMMARY | 2024-09-24 14:53 | XMS_ITS | Encounter Summary ---
Author Organization [facility] Address [address] [id number] Care Team Providers Care Vb Net Programmer Name Role Phone Viridiana Oropeza MD Primary Care Provider [phone] Gerardo Mcbride Unavailable Reason for Referral * Consultation (Routine) - Closed Specialty Diagnoses / Procedures Referred By Contac t Referred To Contact Orthopaedic Surgery Diagnoses Pain in right hip Pain in left hip Cristobal Rosales PA [address] [place] [address] Phone: tel: fax: Alejandro Rojas MD [address] [facility] [address] [place] [address] Phone: tel: fax: Referral ID Status Reason Start Date Expiration Date V isits Requested Visits Authorized [id number] Closed Specialty Services Required 03/08/2022 09/07/2023 1 1 Encounter Details Date Type Department Care Team (Late st Contact Info) Description 03/08/2022 Community Orders Community Practice [address] [place] [address] Cristobal Rosales PA [address] [place] [address] Pain in right hip (Primary [...] documented as of this encounter Care Teams Vb Net Programmer Relationship Specialty Start Date End Date Viridiana Oropeza MD [address] [place] [address] PCP - General 03/13/22 Gerardo Mcbride [address] [place] [address] 08/23/23 documented as of this encounter
--- OUTSIDE RECORDS SUMMARY | 2024-09-24 14:53 | XMS_ITS | Encounter Summary ---
Author Organization [place] [address] Care Team Providers Care On Air Talent Name Role Phone Pankaj Navarro MD Unavailable [phone] Viridiana Oropeza MD Primary Care Provider Reason for Visit * Reason Onset Date Comments Relaying Information 09/22/2024 FAX Encounter Details Date Type Department Care Team (Late st Contact Info) Description 09/22/2024 Telephone [facility] [address] [place] [address] Johnathan Parrish MD [address] [place] [address] Relaying Information (FAX) Social History Tobacco Use Types Packs/Day Years Used Date Smoking Tobacco: Never Passive Smoke Exposure: Never Smokeless Tobacco: Never Alcohol Use Standard Drinks/Week Comments No 0 (1 standard drink = 0.6 oz pur e alcohol) [facility] Utilities Answer Date Recorded In the past 12 months has [employer], gas, oil, or water [employer] threatened to shut off services in your home? No 07/22/2024 Overall Financial Resource Strain (CARDIA) Answe r Date Recorded How hard is it for you to pa y for the very basics like food, housing, medical care, and heating? Not hard at all 07/22/2024 PHQ-2 Answer Date Recorded PHQ-2 Total Score 0 07/22/2024 [facility] [place] of Occupat ional Health - Occupational Stress [...] living? No 01/21/2020 [facility] IP Transportation Answer D ate Recorded [...] Author No 03/23/2024 10:00 AM Tiffany Mccullough Carolyn KEEGAN * Because of a physical, mental or emotional condition, does this person have difficulty doing errands alone such as visiting a doctor's office or shopping? Answer Date of Assessment Author No 03/23/2024 10:00 AM Tiffany Mccullough KEEGAN documented as of this encounter Mental Status * Because of a physical, mental or emotional condition, does this person have serious difficulty concentrating, remembering or making decisions? Answer Entry Date Author No 03/23/2024 10:00 AM Tiffany Mccullough KEEGAN documented in this encounter Miscellaneous Notes * Telephone Encounter - Melia Elam - 09/24/2024 1:46 PM EDT Form completed by Dr. Oropeza and faxed today. * Telephone Encounter - Kristi Sawyer LPN - 09/23/2024 8:41 AM EDT Please give any fax that comes over to Ev and she will check and what if it is real or not. Does not make sense that we send a fax , when we bill the company so they should know he is a patient here * Telephone Encounter - Yeni Deleon - 09/22/2024 3:41 PM EDT Select the most appropriate reason for this telephone message: Relaying Information Relaying Information Who is Calling: Insurance Company/Law Office [employer] w/ [employer] regarding CMS (include office companyand caller's name) What information is the caller relaying: A fax will be sent and requires a response within 10 days to continue coverage Further follow-up needed? Yes Return Method of [...] documented as of this encounter Care Teams On Air Talent Relationship Specialty Start Date End Date Viridiana Oropeza MD [address] [place] [address] PCP - General Family Medicine 09/23/24 Pankaj Navarro MD [address] [place] [address] Physician Otolaryngology 09/18/23 documented as of this encounter
--- OUTSIDE RECORDS SUMMARY | 2024-09-24 14:54 | XMS_ITS | Encounter Summary ---
Author Organization [place] [address] Care Team Providers Care Sack Maker Name Role Phone Pankaj Navarro MD Unavailable [phone] Reason for Visit * Reason Onset Date Comments Central Patient Navigator Outreach 09/15/2024 AWV Questionnaire Encounter Details Date Type Department Care Team (Late st Contact Info) Description 09/15/2024 Patient Outreach [facility] [address] [place], [place] [id number] Viridiana Oropeza MD [address] [place], [place] [id number] Central Patient Navigator Outreach (AWV Questionnaire) Social History Tobacco Use Types Packs/Day Years Used Date Smoking Tobacco: Never Passive Smoke Exposure: Never Smokeless Tobacco: Never Alcohol Use Standard Drinks/Week Comments No 0 (1 standard drink = 0.6 oz pur e alcohol) [facility] Utilities Answer Date Recorded In the past 12 months has [employer], gas, oil, or water [employer] threatened to shut off services in your home? No 07/22/2024 Overall Financial Resource Strain (CARDIA) Answe r Date Recorded How hard is it for you to pa y for the very basics like food, housing, medical care, and heating? Not hard at all 07/22/2024 PHQ-2 Answer Date Recorded PHQ-2 Total Score 0 07/22/2024 [facility] [place] of Occupat ional Health - Occupational Stress [...] daily living? 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 Oropeza as primary care provider Call back number: [phone] documented in this encounter Plan of Treatment [...] documented as of this encounter Care Teams Sack Maker Relationship Specialty Start Date End Date Pankaj Navarro MD [address] [place], [place] [id number] Physician Otolaryngology 09/18/23 documented as of this encounter
--- OUTSIDE RECORDS SUMMARY | 2024-09-24 14:54 | XMS_ITS | Encounter Summary ---
Author Organization [place] [address] Care Team Providers Care Hot Molder Name Role Phone Viridiana Oropeza MD Primary Care Provider [phone] Pankaj Navarro MD Unavailable [phone] Viridiana Oropeza MD Primary Care Provider [phone] Encounter Details Date Type Department Care Team (Late st Contact Info) Description 06/08/2024 Lab Requisition [facility] [place] [address] Wilfredo Forte MD Infection following a procedure, superficial incisional surgical site, subsequent encounter Social History Tobacco Use Types Packs/Day Years Used Date Smoking Tobacco: Never Passive Smoke Exposure: Never Smokeless Tobacco: Never Alcohol Use Standard Drinks/Week Comments No 0 (1 standard drink = 0.6 oz pur e alcohol) [facility] Utilities Answer Date Recorded In the past 12 months has [employer] electric, gas, oil, or water company threatened to shut off services in your home? No 08/29/2023 Overall Financial Resource Strain (CARDIA) Answe r Date Recorded How hard is it for you to pa y for the very basics like food, housing, medical care, and heating? Not hard at all 08/29/2023 PHQ-2 Answer Date Recorded PHQ-2 Total Score 0 03/23/2024 [facility] [place] of Occupat ional Health - Occupational Stress [...] 01/21/2020 [facility] IP Transportation Answer D ate Recorded [...] 30 General 41.9(07/22/19 9:49 PM EDT) No Jluia Chicas, DAVID Maintain a healthy diet, exercise [...] ORDERABLES Final Re sult Performing Organization Address City/[facility]/ZIP Co de Phone Number [facility], [address] , [place] [address] * (ABNORMAL) HEPATIC FUNCTION PANEL (06/08/2024 10:00 AM EDT) Pathologist [facility] Total Protein 6.0(L) 6.4 - 8.3 gm/dL [...] ORDERABLES Final Re sult Performing Organization Address City/[facility]/ZIP Co de Phone Number [facility], [facility] [address] [facility] , [place] [address] * CREATININE (06/08/2024 10:00 AM EDT) Creatinine 1.06 0.67 - 1.30 mg/dL 06/08/2024 8:47 PM EDT [facility], [facility] eGFR (CKD-EPIcr 2020) 77 >=60 mL/min/1.7 3 m2 06/08/2024 8:47 PM EDT [facility], [facility] Comment:Estimated GFR was ca lculated using the CKD-EPIcr (2020) equation refit without race. The equation is recommended by the National Kidney Foundation - [place] Society of Nephrology Task Force. Blood VENOUS BLOOD / Unknown 06/08/2024 10:00 AM EDT 06/08/2024 4:41 PM EDT us Wilfredo Forte MD CHEMISTRY ORDERABLES Final Re sult [facility], [facility] [address] [facility] , [place] [address] * (ABNORMAL) CBC WITH DIFF (06/08/2024 10:00 AM EDT) WBC 9.0 3.7 - 10.3 x10(3)/mcL 06/08/2024 5:09 PM EDT [facility] RBC 2.89(L) 4.60 - 6.10 x10(6)/mcL 06/08/2024 5:09 PM EDT [facility], [facility] Hgb 8.3(L) 13.7 - 17.5 g/dL 06/08/2024 5:09 PM EDT [facility] Hct 28.3(L) 40.0 - 51.0 % 06/08/2024 5:09 PM EDT [facility] MCV 97.9 80.0 - 100.0 fL 06/08/2024 5:09 PM EDT [facility] MCH 28.7 26.0 - 34.0 pg 06/08/2024 5:09 PM EDT [facility] MCHC 29.3(L) 30.7 - 35.5 g/dL 06/08/2024 5:09 PM EDT [facility] RDW 15.2(H) <=14.9 % 06/08/2024 5:09 PM EDT [facility] Platelet 294 155 - 369 x10(3)/[facility] 06/08/2024 5:09 PM EDT [facility] MPV 10.8 8.8 - 12.5 fL 06/08/2024 5:09 PM EDT [facility] Neut Percent 37.7 % 06/08/2024 5:09 PM EDT [facility] Comment:Neutrophils equals s egs plus bands Imm Gran% 0.2 % 06/08/2024 5:09 PM EDT [facility] Comment:Automated count of m etamyelocytes, myelocytes and promyelocytes. Lymph Percent 45.4 % 06/08/2024 5:09 PM EDT [facility] [place] Percent 9.0 % 06/08/2024 5:09 PM EDT [facility] Eos Percent 7.3 % 06/08/2024 5:09 PM EDT [facility] Baso Percent 0.4 % 06/08/2024 5:09 PM EDT [facility] Neut # 3.4 1.6 - 6.1 x10(3)/[facility] 06/08/2024 5:09 PM EDT [facility], [facility] Comment:Neutrophils equals s egs plus bands IMMGRAN# 0.0 0.0 - 0.1 x10(3)/[facility] 06/08/2024 5:09 PM EDT [facility] Comment:Automated count of m etamyelocytes, myelocytes and promyelocytes. An absolute IG <0.1 is reported as 0.0. Lymph # 4.1(H) 1.2 - 3.9 x10(3)/mcL 06/08/2024 5:09 PM EDT [facility], [facility] [place] # 0.8 0.3 - 0.9 x10(3)/[facility] 06/08/2024 5:09 PM EDT [facility] Eos# 0.7(H) 0.0 - 0.5 x10(3)/[facility] 06/08/2024 5:09 PM EDT [facility] Baso # 0.0 0.0 - 0.1 x10(3)/mcL 06/08/2024 5:09 PM EDT [facility] [employer] Blood VENOUS BLOOD / Unknown 06/08/2024 10:00 AM EDT 06/08/2024 4:41 PM EDT Wilfredo Forte MD HEMATOLOGY ORDERABLES Final R esult Performing Organization Address [facility] Co de Phone Number [facility] [employer] [address] , [place] [address] * (ABNORMAL) BLOOD UREA NITROGEN (06/08/2024 10:00 AM EDT) BUN 5(L) 8 - 23 mg/dL 06/08/2024 8:47 PM EDT [facility] [employer] Blood VENOUS BLOOD / Unknown 06/08/2024 10:00 AM EDT 06/08/2024 4:41 PM EDT us Wilfredo Forte MD CHEMISTRY ORDERABLES Final Re sult Performing Organization Address [facility] Co de Phone Number [facility] [employer] [address] , [place] [address] documented in this encounter Visit [...] documented as of this encounter Care Teams Hot Molder Relationship Specialty [place] [address] [place] [address] PCP - General 01/19/09 09/14/24 Viridiana Oropeza MD [address] [place] [address] PCP - General Family Medicine 09/23/24 Pankaj Navarro MD [address] [place] [address] Physician Otolaryngology 09/18/23 documented as of this encounter
--- OUTSIDE RECORDS SUMMARY | 2024-09-24 14:54 | XMS_ITS | Clinical Summary ---
Author Organization [facility] Address [address] [place] [address] Care Team Providers Care Poultry Dresser Name Role Phone Viridiana Oropeza MD Primary Care Provider [phone] MarcellusaddisonkileyGerardo pink Unavailable [phone] Allergies Active Allergy Reactions Criticality Noted [...] Type Department Care Team Description 08/05/[address] [address] Roxana Wagoner 07/20/2024 10:30 AM EDT Office Visit [address] [address] Wilfredo Forte MD Infection of prosthetic joint, subsequent encounter (Primary Dx) 07/20/2024 Results Follow-Up [address] [address] Wilfredo Forte MD abnormal labs [...] [facility] [address] [facility], [address] [place] [address] Alejandro Rojas MD HCN - [...] you attend [facility] or yazdanism services? Patient unable to answer 05/04/2024 Do you belong to any clubs o r organizations such as sabianist groups, unions, fraternal or athletic groups, or [...] Recorded Patient Health Questionnaire-2 Score 0 06/15/2024 [facility] Answer [...] any time in the past 12 m [facility], were you homeless or living in a mcfp (including now)? No 05/04/2024 Utilities Answer Date Recorded In the past 12 months has th e [employer], gas, oil, or water [employer] threatened to shut off services in your [...] - Risk 60-74 years 1-dose series) 2016 [id number] Vaccine ( season) 2023 03/27/2023, 08/17/2021, 12/20/2020, [...] Wagoner PA Medical Devices Implanted Type Area Ceramic Tile Installer Device Identifier Shelf Expiration Date Model / Serial / Lot Cement Palacos W/Gent - Sn/A - [id number] Implanted:Qty : 1 on 05/02/2024 by Denis Stevenson MD at [facility] Cement Right: Hip [employer] Inc-[id number] 05/12/2027 [id number] / N/A / [id number] Implant Implant Biljosea l: Hip Liner Ref Xlpe 36 20 Deg 54-56 F - [id number] Implanted:Qty : 1 on 03/26/2024 by Alejandro Rojas MD at [facility] Right: Hip [employer]-[id number] 07/27/2029 [id number] / / [id number] Hip Head Oxi Fm Tpr 36 +8 - [id number] Implanted:Qty : 1 on 03/26/2024 by Alejandro Rojas MD at [facility] Right: Hip [employer]-[id number] 07/01/2032 [id number] / / [id number] Chg Stem Redapt Flagler 300mm So Sz21 - [id number] Implanted:Qty : 1 on 05/07/2024 by Alejandro Rojas MD at [facility] Right: Hip [employer]-[id number] 09/06/2031 [id number] / / [id number] Chg Head Oxinium Fem 01/24 28m - [id number] Implanted:Qty : 1 on 05/07/2024 by Alejandro Rojas MD at [facility] Right: Hip [employer]-[id number] 10/27/2033 [id number] / / [id number] Shell Modular Redapt 62mm - [id number] Implanted:Qty : 1 on 05/07/2024 by Alejandro Rojas MD at [facility] Right: Hip [employer]-[id number] 10/21/2032 [id number] / / [id number] Chg Screw Ref Spher Head 25mm - [id number] Implanted:Qty : 1 on 05/07/2024 by Alejandro Rojas MD at [facility] Right: Hip [employer]-[id number] 11/04/2033 [id number] / / [id number] Liner Or3o Dual Mbility 48 62 - [id number] Implanted:Qty : 1 on 05/07/2024 by Alejandro Rojas MD at [facility] Right: Hip [employer]-[id number] 06/24/2032 [id number] / / [id number] Chg Screw Ref Spher Head 25mm - [id number] Implanted:Qty : 1 on 05/07/2024 by Alejandro Rojas MD at [facility] Right: Hip [employer]-[id number] 11/02/2033 [id number] / / [id number] Chg Screw Redapt Lock 15mm - [id number] Implanted:Qty : 1 on 05/07/2024 by Alejandro Rojas MD at [facility] Right: Hip [employer]-[id number] 09/23/2033 [id number] / / [id number] Liner Or3o Dual Mbility Xlpe 28 48 - [id number] Implanted:Qty : 1 on 05/07/2024 by Alejandro Rojas MD at [facility] Right: Hip [employer]-[id number] 01/09/2030 [id number] / / [id number] Procedures Procedure Name Priority Date/Time Associated Diagnosis [...] CBC and Differential (07/20/2024 10:40 AM EDT) [facility] WBC Count 20.96(H) 3.70 - 10.30 10*3/uL LAB HEMATOLOGY METHOD 07/20/2024 2:54 PM EDT [facility] RBC Count 4.16(L) 4.60 - 6.10 10*6/uL LAB HEMATOLOGY METHOD 07/20/2024 2:54 PM EDT [facility] HGB 11.5(L) 13.7 - 17.5 g/dL LAB HEMATOLOGY METHOD 07/20/2024 2:54 PM EDT [facility] HCT 37.3(L) 40.0 - 51.0 % LAB HEMATOLOGY METHOD 07/20/2024 2:54 PM EDT [facility] Platelet Count 316 155 - 369 10*3/uL LAB HEMATOLOGY METHOD 07/20/2024 2:54 PM EDT [facility] MCV 90 79 - 98 fL LAB HEMATOLOGY METHOD 07/20/2024 2:54 PM EDT [facility] MCH 27.6 26.0 - 32.0 pg LAB HEMATOLOGY METHOD 07/20/2024 2:54 PM EDT [facility] MCHC 30.8 30.7 - 35.5 g/dL LAB HEMATOLOGY METHOD 07/20/2024 2:54 PM EDT [facility] RDW 15.5(H) 11.5 - 14.5 % LAB HEMATOLOGY METHOD 07/20/2024 2:54 PM EDT [facility] MPV 9.7 8.8 - 12.5 fL LAB HEMATOLOGY METHOD 07/20/2024 2:54 PM EDT [facility] nRBC 0.0 <=0.0 per 100 WBCs LAB HEMATOLOGY METHOD 07/20/2024 2:54 PM EDT [facility] Differential Type Automated LAB HEMATOLOGY METHOD 07/20/2024 2:54 PM EDT [facility] Neutrophils % 49 % LAB HEMATOLOGY METHOD 07/20/2024 2:54 PM EDT [facility] Lymphocytes % 37 % LAB HEMATOLOGY METHOD 07/20/2024 2:54 PM EDT [facility] Monocytes % 7 % LAB HEMATOLOGY METHOD 07/20/2024 2:54 PM EDT [facility] Eosinophils % 3 % LAB HEMATOLOGY METHOD 07/20/2024 2:54 PM EDT [facility] Basophils % 0 % LAB HEMATOLOGY METHOD 07/20/2024 2:54 PM EDT [facility] Immature Granulocytes % 4 % LAB HEMATOLOGY METHOD 07/20/2024 2:54 PM EDT [facility] Neutrophils Absolute 10.36(H) 1.60 - 6.10 10*3/uL LAB HEMATOLOGY METHOD 07/20/2024 2:54 PM EDT [facility] Lymphocytes Absolute 7.66(H) 1.20 - 3.90 10*3/uL LAB HEMATOLOGY METHOD 07/20/2024 2:54 PM EDT [facility] Monocytes Absolute 1.51(H) 0.30 - 0.90 10*3/uL LAB HEMATOLOGY METHOD 07/20/2024 2:54 PM EDT [facility] Eosinophils Absolute 0.61(H) 0.00 - 0.50 10*3/uL LAB HEMATOLOGY METHOD 07/20/2024 2:54 PM EDT [facility] Basophils Absolute 0.07 0.00 - 0.10 10*3/uL LAB HEMATOLOGY METHOD 07/20/2024 2:54 PM EDT [facility] Immature Granulocytes Absolute 0.75(H) 0.00 - 0.06 10*3/uL LAB HEMATOLOGY METHOD 07/20/2024 2:54 PM EDT [facility] Blood Venous blood specimen / Unknown Venipuncture / Unknown 07/20/2024 10:40 AM EDT 07/20/2024 10:40 AM EDT Narrative [facility] - 07/20/2024 2:54 PM EDT Therapeutic decision making should be based on absolute values, rather than percentages. us Wilfredo Forte MD LAB BLOOD ORDERABLES Final Re sult [facility] [address] [place] [address] * (ABNORMAL) C-reactive protein (07/20/2024 10:40 AM EDT) CRP, Plasma 96.8(H) <=8.0 mg/L 07/20/2024 12:33 PM EDT [facility] Blood Venous blood specimen / Unknown Venipuncture / Unknown 07/20/2024 10:40 AM EDT 07/20/2024 10:40 AM EDT Narrative [facility] - 07/20/2024 12:33 PM EDT This CRP test is appropriate for assessment of infection, systemic inflammation and/or tissue injury. To assess cardiovascular disease risk order high sensitivity CRP (CRPH). us Wilfredo Forte MD LAB BLOOD ORDERABLES Final Re sult [facility] [address] [place] [address] * (ABNORMAL) Comprehensive Metabolic Panel, Plasma (07/20/2024 10:40 AM EDT) Glucose, Plasma 129(H) 74 - 99 mg/dL 07/20/2024 12:33 PM EDT [facility] BUN, Plasma 33(H) 8 - 23 mg/dL 07/20/2024 12:33 PM EDT [facility] Creatinine, Plasma 2.15(H) 0.70 - 1.20 mg/dL 07/20/2024 12:33 PM EDT [facility] BUN/Creatinine Ratio 15 07/20/2024 12:33 PM EDT [facility] Sodium, Plasma 137 136 - 145 mmol/L 07/20/2024 12:33 PM EDT [facility] Potassium, Plasma 4.4 3.6 - 4.9 mmol/L 07/20/2024 12:33 PM EDT [facility] Chloride, Plasma 104 97 - 107 mmol/L 07/20/2024 12:33 PM EDT [facility] CO2, Plasma 19(L) 22 - 29 mmol/L 07/20/2024 12:33 PM EDT [facility] Anion Gap 14 6 - 16 mmol/L 07/20/2024 12:33 PM EDT [facility] Total Calcium, Plasma 9.3 8.9 - 10.2 mg/dL 07/20/2024 12:33 PM EDT [facility] Total Protein 6.6 6.3 - 7.9 g/dL 07/20/2024 12:33 PM EDT [facility] Albumin, Plasma 3.5 3.5 - 5.2 g/dL 07/20/2024 12:33 PM EDT [facility] AST, Plasma 13 10 - 50 U/L 07/20/2024 12:33 PM EDT [facility] ALT, Plasma 13 10 - 50 U/L 07/20/2024 12:33 PM EDT [facility] Alkaline Phosphatase, Plasma 96 40 - 115 U/L 07/20/2024 12:33 PM EDT [facility] Total Bilirubin, Plasma <0.2(L) 0.2 - 1.1 mg/dL 07/20/2024 12:33 PM EDT [facility] eGFRcr 32.9 mL/min/1.7 3m*2 07/20/2024 12:33 PM EDT [facility] Comment:Reported eGFRcr in m L/min/1.73m2 is based the CKD-EPI 2020 equation that does not use a race coefficient. Blood Venous blood specimen / Unknown Venipuncture / Unknown 07/20/2024 10:40 AM EDT 07/20/2024 10:40 AM EDT us Wilfredo Forte MD LAB BLOOD ORDERABLES Final Re sult [facility] [address] [place] [address] * (ABNORMAL) Hemoglobin A1c (05/02/2024 2:46 AM EDT) Hemoglobin A1c 5.8(H) <5.7 % 05/02/2024 8:35 AM EDT [facility] Blood Venous blood specimen / Unknown Venipuncture / Unknown 05/02/2024 2:46 AM EDT 05/02/2024 2:58 AM EDT Narrative [facility] - 05/02/2024 8:35 AM EDT HA1C Interpretive Data: Diagnosis of Diabetes: Diabetic > or = 6.5% Pre-diabetic 5.7 to 6.4% Non-diabetic < or = 5.6% Glycemic Targets for Type I and Type II Diabetics: Non- Adults <7.0% Adults <6.0% Children and Adolescents <7.5% Source: [place] [employer] Association. Standards of medical care in diabetes,2017. Diabetes Care.2017:40 (suppl 1):S1-S135. HbA1c assay performed by an ion-exchange chromatography method that is certified traceable to the DCCT. us Regan Frank MD LAB BLOOD ORDERABLES Final Resul t [facility] [address] [place] [address] from Last 3 Months or Most Recently Relevant to Health Maintenance Additional Health Concerns Active Problems Noted Date Diagnosed Date Autogenerated Problem 07/17/2024 Autogenerated Problem 06/05/2024 Insurance [facility] [place] [address] Advance Directives * Full Code (Latest Code Status on File) Date Activated Date Inactivated Comments 05/02/2024 3:18 PM 05/13/2024 6:35 PM * Full Code Date Activated Date Inactivated Comments 05/02/2024 5:18 AM 05/02/2024 3:18 PM * Full Code Date Activated Date Inactivated Comments 03/26/2024 12:27 PM 04/01/2024 9:30 PM Question Answer Comments Patient has decision-making capacity? Yes Care Teams Poultry Dresser Relationship Specialty Start Date End Date Viridiana Oropeza MD [address] [place] [address] PCP - General 03/13/22 Gerardo Mcbride [address] [place] [address] 08/23/23
--- OUTSIDE RECORDS SUMMARY | 2024-09-24 14:54 | XMS_ITS | Clinical Summary ---
Author Organization Address [address] [place] [address] Care Team Providers Care Front Office Representative Name Role Phone Pcp, No Primary Care [...] therelease of HIV test results or diagnoses. [id number] Allergies Active Allergy Reactions Criticality Noted [...] 08/23/2031 Immunization: Pneumococcal Completed 02/21/2022, Insurance [facility] MEDICARE B Care Teams Front Office Representative Relationship Specialty Start Date End Date Pcp, No No Address PCP - General 08/25/21
--- OUTSIDE RECORDS SUMMARY | 2024-09-24 14:54 | XMS_ITS | Encounter Summary ---
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 No 08/29/2023 Overall Financial Resource Strain (CARDIA) Answe r Date Recorded How hard is it for you to pa y for the very basics like food, housing, medical care, and heating? Not hard at all 08/29/2023 PHQ-2 Answer Date Recorded PHQ-2 Total Score 0 03/23/2024 [facility] [place] of Occupat ional Health - Occupational Stress [...] No 01/21/2020 [facility] IP Transportation Answer D ate [...] Final Re sult Performing Organization Address [facility] [place] [address] * CREATININE (06/02/2024 10:00 AM EDT) Creatinine 1.13 0.67 - 1.30 mg/dL 06/02/2024 6:27 PM EDT [facility] eGFR (CKD-EPIcr 2020) 71 >=60 mL/min/1.7 3 m2 06/02/2024 6:27 PM EDT [facility] Comment:Estimated GFR was ca lculated using the CKD-EPIcr (2020) equation refit without race. The equation is recommended by the National Kidney Foundation - [place] Society of Nephrology Task Force. Blood VENOUS BLOOD / Unknown 06/02/2024 10:00 AM EDT 06/02/2024 2:43 PM EDT us Wilfredo Forte MD CHEMISTRY ORDERABLES Final Re sult Performing Organization Address [facility] Co de Phone Number [facility] [address] [place] [address], [place] [address] * (ABNORMAL) C-REACTIVE PROTEIN (06/02/2024 10:00 AM EDT) CRP 26.44(H) <=5.00 mg/L 06/02/2024 6:27 PM EDT [facility] Blood VENOUS BLOOD / Unknown 06/02/2024 10:00 AM EDT 06/02/2024 2:43 PM EDT Wilfredo Forte MD CHEMISTRY ORDERABLES Final Re sult Performing Organization Address City/[facility]/ZIP Co de Phone Number [facility] [address] [facility] , [place] [address] * (ABNORMAL) HEPATIC FUNCTION PANEL [...] ORDERABLES Final Re sult [facility] [address] [facility] , [place] [address] * (ABNORMAL) CBC WITH DIFF [...] 3:23 PM EDT [facility] [place] Percent 9.8 % 06/02/2024 3:23 PM EDT [...] x10(3)/mcL 06/02/2024 3:23 PM EDT [facility] Comment:Automated count of m etamyelocytes, myelocytes and promyelocytes. An absolute IG <0.1 is reported as 0.0. Lymph # 3.3 1.2 - 3.9 x10(3)/[facility] 06/02/2024 3:23 PM EDT [facility] [place] # 0.8 0.3 - 0.9 x10(3)/[facility] 06/02/2024 3:23 PM EDT [facility] Eos# 0.8(H) 0.0 - 0.5 x10(3)/[facility] 06/02/2024 3:23 PM EDT [facility] Baso # 0.0 0.0 - 0.1 x10(3)/[facility] 06/02/2024 3:23 PM EDT [facility] Blood VENOUS BLOOD / Unknown 06/02/2024 10:00 AM EDT 06/02/2024 2:43 PM EDT Wilfredo Forte MD HEMATOLOGY ORDERABLES Final R esult Performing Organization Address [facility] Co de Phone Number [facility] [place], [facility] [address] [facility] , [place] [address] * (ABNORMAL) BLOOD UREA NITROGEN (06/02/2024 10:00 AM EDT) BUN 6(L) 8 - 23 mg/dL 06/02/2024 6:27 PM EDT [facility] Blood VENOUS BLOOD / Unknown 06/02/2024 10:00 AM EDT 06/02/2024 2:43 PM EDT Wilfredo Forte MD CHEMISTRY ORDERABLES Final Re sult Performing Organization Address [facility] Co de Phone Number [facility], [facility] [address] [facility] , [place] [address] documented in this encounter Visit [...] documented as of this encounter Care Teams Environmental Field Team Member Relationship Specialty Start Date End Date Viridiana Oropeza MD [address] [place] [address] PCP - General 01/19/09 09/14/24 Viridiana Oropeza MD [address] [place] [address] PCP - General Family Medicine 09/23/24 Pankaj Navarro MD [address] [place] [address] Physician Otolaryngology 09/18/23 documented as of this encounter
--- OUTSIDE RECORDS SUMMARY | 2024-09-24 14:54 | XMS_ITS | Encounter Summary ---
Author Organization [place] [address] Care Team Providers Care Associate Software Development Engineer Name Role Phone Viridiana Oropeza MD Primary Care Provider [phone] Pankaj Navarro MD Unavailable [phone] Reason for Visit * Reason Onset Date Comments Refill 07/07/2024 Percocet refill request Encounter Details Date Type Department Care Team (Late st Contact Info) Description 07/07/2024 Telephone [facility] [address] [place] [address] Viridiana Oropeza MD [address] [place] [address] Refill (Percocet refill request) Social History Tobacco Use Types Packs/Day Years Used Date Smoking Tobacco: Never Passive Smoke Exposure: Never Smokeless Tobacco: Never Alcohol Use Standard Drinks/Week Comments No 0 (1 standard drink = 0.6 oz pur e alcohol) [facility] Utilities Answer Date Recorded In the past 12 months has [employer], gas, oil, or water [employer] threatened to shut off services in your home? No 07/22/2024 Overall Financial Resource Strain (CARDIA) Answe r Date Recorded How hard is it for you to pa y for the very basics like food, housing, medical care, and heating? Not hard at all 07/22/2024 PHQ-2 Answer Date Recorded PHQ-2 Total Score 0 07/22/2024 [facility] [place] of Occupat ional [facility] - Occupational Stress Questionnaire Answer Date Recorded [...] things needed for daily living? No 01/21/2020 [facility] IP Transportation Answer D ate Recorded [...] 07/21/2024 4:08 PM Genesis Carey RN * [place] Suicide Severity Rating Scale (Q shift for [...] Richey RMA - 07/07/2024 9:54 AM EDT Pharmacy:[id number] [place] [address] [address] [facility] [phone] Controlled Contract Updated / Signed 08/17/2022- [facility] Informed Consent Updated / Signed [...] w/ prescribing provider: 09/16/24 Pharmacy & Location: [facility] [address] [place] [address] [address] Return Method of Communication: N/A [...] documented as of this encounter Care Teams Associate Software Development Engineer Relationship Specialty Start Date End Date Viridiana Oropeza MD [address] [place] [address] PCP - General 01/19/09 09/14/24 Pankaj Navarro MD [address] [place] [address] Physician Otolaryngology 09/18/23 documented as of this encounter
--- OUTSIDE RECORDS SUMMARY | 2024-09-24 14:54 | XMS_ITS | Encounter Summary ---
Author Organization [place] [address] Care Team Providers Care Physician Scribe Name Role Phone Viridiana Oropeza MD Primary Care Provider [phone] Pankaj Navarro MD Unavailable [phone] Encounter Details Date Type Department Care Team (Late st Contact Info) Description 06/23/2024 Results Follow-Up [facility] [address] [place] [address] Lucia Dunlap PA-C [address] [place] [address] COMPLIANCE OPIOID PANEL QUANT ONLY, URINE Social History Tobacco Use Types Packs/Day Years Used Date Smoking Tobacco: Never Passive Smoke Exposure: Never Smokeless Tobacco: Never Alcohol Use Standard Drinks/Week Comments No 0 (1 standard drink = 0.6 oz pur e alcohol) [facility] Utilities Answer Date Recorded In the past 12 months has [employer], gas, oil, or water [employer] threatened to shut off services in your home? No 07/22/2024 Overall Financial Resource Strain (CARDIA) Answe r Date Recorded How hard is it for you to pa y for the very basics like food, housing, medical care, and heating? Not hard at all 07/22/2024 PHQ-2 Answer Date Recorded PHQ-2 Total Score 0 07/22/2024 [facility] [place] of Occupat ional Health - Occupational Stress [...] things needed for daily living? No 01/21/2020 [facility] IP Transportation Answer D ate Recorded [...] 07/21/2024 4:08 PM Genesis Carey RN * [place] Suicide Severity Rating Scale (Q shift for [...] documented as of this encounter Care Teams Physician Scribe Relationship Specialty Start Date End Date Viridiana Oropeza MD [address] [place] [address] PCP - General 01/19/09 09/14/24 Pankaj Navarro MD [address] [place] [address] Physician Otolaryngology 09/18/23 documented as of this encounter
[2024-09-24 15:56] LABS: Hematocrit 35.3 % (42.0-52.0); Hemoglobin 11.1 g/dL (14.1-18.0); Immature Granulocytes % 0.2 %; Mean Corpuscular HGB Conc 31.4 g/dL (31.8-35.4); Mean Corpuscular Hemoglobin 29.3 pg (27.0-31.2); Mean Corpuscular Volume 93.1 fl (80-94); Nucleated Red Blood Cells % 0 %; Platelet Count 243 K/mm3 (142-424); Red Blood Count 3.79 M/mm3 (4.60-6.20); Red Cell Distribution Width-SD 63.0 fL; White Blood Count 12.3 K/mm3 (4.8-10.8)
[2024-09-24 16:36] LABS: Anisocytosis 1+; RBC Morphology Normal; Total Cells Counted 100
[2024-09-24 16:57] LABS: Albumin Level 4.3 g/dl (3.5-5.0); Chloride 110 mmol/L (98-107); Potassium 5.1 mmoL/L (3.5-5.1); Sodium 142 mmol/L (136-145)
[2024-09-24 17:00] LABS: Alanine Aminotransferase 11 U/L (12-78); Albumin/Globulin Ratio 1.6 (1.1-1.8); Alkaline Phosphatase 96 U/L (38-126); Anion Gap 13.1 mEq/L (5-15); Aspartate Amino Transferase 18 U/L (17-59); Bilirubin,Total 0.6 mg/dl (0.2-1.3); Blood Urea Nitrogen 28 mg/dl (9-20); Carbon Dioxide 24 mmol/L (22.0-30.0); Creatinine,Serum 1.50 mg/dl (0.66-1.25); Estimated Glomerular Filt Rate 47 ml/min (>60); GFR (African American) 56 ML/MIN (>60); Globulin 2.7 g/dL (1.3-3.2); Total Protein,Serum 7.0 g/dl (6.3-8.2)
[2024-09-24 17:01] LABS: Calcium 9.4 mg/dl (8.4-10.2); Glucose 95 mg/dl (74-100)
== END 2024-09-24 23:59 | disposition home or self-care (01) ==
LOC: LAB 14:50
PROVIDERS: PCP Family Medicine; Visit Provider Family Medicine
DX: M19.042 Primary osteoarthritis, left hand (principal); M19.041 Primary osteoarthritis, right hand; M47.812 Spondylosis without myelopathy or radiculopathy, cervical region; N18.9 Chronic kidney disease, unspecified; N17.9 Acute kidney failure, unspecified
CPT/HCPCS: 36415; 72040; 73130; 80053; 85007; 85025; 85597; 85598; 85610; 85613; 85651; 85670; 85730; 86146; 86147; 86200; 86225; 86235

== ENCOUNTER 2024-09-25 12:40 | Outpatient (CLI) | payer MEDICARE, MEDICAID, SELFPAY ==
--- OUTSIDE RECORDS SUMMARY | 2018-12-31 14:56 | XMS_ITS | Encounter Summary ---
Author Organization [place] [address] Care Team Providers Care General Handling Supervisor Name Role Phone Viridiana Oropeza MD Primary Care Provider [phone] Encounter Details Date Type Department Care Team (Latest Contact Info) Description 12/31/2018 1:56 PM [facility] Hospital Encounter [facility] Referral Lab 1 [place] [address] Fahad Kennedy MD [address] [place] [address] Pain in right hip Social History Tobacco Use Types Packs/Day Years Used Date Smoking Tobacco: Never Passive Smoke Exposure: Never Smokeless Tobacco: Never Alcohol Use Standard Drinks/Week Comments No 0 (1 standard drink = 0.6 oz pur e alcohol) [facility] Utilities Answer Date Recorded In the past 12 months has [employer] electric, gas, oil, or water company threatened to shut off services in your home? No 07/22/2024 Overall Financial Resource Strain (CARDIA) Answe r Date Recorded How hard is it for you to pa y for the very basics like food, housing, medical care, and heating? Not hard at all 07/22/2024 PHQ-2 Answer Date Recorded PHQ-2 Total Score 0 07/22/2024 [facility] [place] of Occupat ional Health - Occupational Stress [...] things needed for daily living? No 01/21/2020 [facility] IP Transportation Answer D ate Recorded [...] 4:08 PM EDT Genesis Dumont RN * [place] Suicide Severity Rating Scale (Q shift for [...] documented as of this encounter Care Teams General Handling Supervisor Relationship Specialty Start Date End Date Viridiana Oropeza MD [address] [place] [address] PCP - General 01/19/09 09/14/24 documented as of this encounter
--- OUTSIDE RECORDS SUMMARY | 2024-09-25 12:43 | XMS_ITS | Encounter Summary ---
Author Organization [place] [address] Care Team Providers Care Highway Research Engineer Name Role Phone Viridiana Oropeza MD Primary Care Provider [phone] Pankaj Navarro MD Unavailable [phone] Reason for Visit * Reason Onset Date Comments Refill 08/07/2024 Oxycodone - refi ll Encounter Details Date Type Department Care Team (Late Contact Info) Description 08/07/2024 Telephone [facility] [address] [place] [id number] Viridiana Oropeza MD [address] [place] [address] Refill (Oxycodone - refill ) Social History Tobacco Use Types Packs/Day Years Used Date Smoking Tobacco: Never Passive Smoke Exposure: Never Smokeless Tobacco: Never Alcohol Use Standard Drinks/Week Comments No 0 (1 standard drink = 0.6 oz pur e alcohol) [facility] Utilities Answer Date Recorded In the past 12 months has [employer], gas, oil, or water [employer] threatened to shut off services in your home? No 07/22/2024 Overall Financial Resource Strain (CARDIA) Answe r Date Recorded How hard is it for you to pa y for the very basics like food, housing, medical care, and heating? Not hard at all 07/22/2024 PHQ-2 Answer Date Recorded PHQ-2 Total Score 0 07/22/2024 [facility] [place] [facility] Occupat ional Health - Occupational Stress [...] things needed for daily living? No 01/21/2020 [facility] IP Transportation Answer D ate [...] Sawyer LPN - 08/07/2024 8:40 AM EDT Pharmacy:[id number] - [place] [address] [address] [phone] Controlled Contract Updated / Signed 08/17/2022- Rangely [...] w/ prescribing provider: 09/16/24 Pharmacy & Location: [facility] [address] [place] [address] - [address] - Return Method of Communication: [...] documented as of this encounter Care Teams Highway Research Engineer Relationship Specialty Start Date End Date Viridiana Oropeza MD [address] [place] [address] PCP - General 01/19/09 09/14/24 Pankaj Navarro MD [address] [place], [place] [id number] Physician Otolaryngology 09/18/23 documented as of this encounter
--- OUTSIDE RECORDS SUMMARY | 2024-09-25 12:43 | XMS_ITS | Encounter Summary ---
Author Organization Healthcare Address [address] [place] [address] Care Team Providers Care Office Automation Clerk Name Role Phone Viridiana Oropeza MD Primary Care Provider [phone] Gerardo Mcbride Unavailable [phone] Encounter Details Date Type Department Care Team (Late st Contact Info) Description 08/05/2024 Telephone [facility] [address] [place] [address] Roxana Wagoner Social History Tobacco [...] How often do you attend chur or orthodox services? Patient unable to answer 05/04/2024 Do [...] Questionnaire-2 Score 0 [facility] [place] - Occupational Stress Questionnaire Answer Date Recorded [...] any time in the past 12 m [facility], were you homeless or living in a usp (including now)? No 05/04/2024 Utilities Answer Date [...] 3:10 PM EDT Wilfredo Forte MD P [facility] Clinical Belt Cutter I saw Mr. Chauhan two weeks ago. His labwork showed elevated CRP, WBC 21 and newly elevated creatinine consistent with renal failure. I contacted him and advised him to go to the ED for evaluation. He was going to do that at [facility] but I dont see that he did that. Can someone follow up with him and see if he went somehwere for evaluation. Updated Care Everywhere and notified the provider the patient was seen in the ED at [facility] and admitted. Updated records and results crossed over to [facility]. * Telephone Encounter - Roxana Wagoner [...] Associated Problems Recent Progress Patient-Stated? Author Autogenera lfoyd Goal Care Plan Autogenerated Problem No Chris [...] documented as of this encounter Care Teams Office Automation Clerk Relationship Specialty Start Date End Date Viridiana Oropeza MD [address] [place] [address] PCP - General 03/13/22 Gerardo Mcbride [address] [place] [address] 08/23/23 documented as of this encounter
--- OUTSIDE RECORDS SUMMARY | 2024-09-25 12:43 | XMS_ITS | Encounter Summary ---
Author Organization [place] [address] Care Team Providers Care Commercial Specialist Name Role Phone Viridiana Oropeza MD Primary Care Provider [phone] Pankaj Navarro MD Unavailable [phone] Reason for Visit * Reason Onset Date Comments Hospital Follow Up 07/28/2024 Encounter Details Date Type Department Care Team (Late st Contact Info) Description 07/28/2024 Patient Outreach SEP Care Managment [facility] Marco Antonio Moya Ethan. [address] Appointment Location May Differ [place] [id number] Lexis Kahn RN Hospital Follow Up Social History Tobacco Use Types Packs/Day Years Used Date Smoking Tobacco: Never Passive Smoke Exposure: Never Smokeless Tobacco: Never Alcohol Use Standard Drinks/Week Comments No 0 (1 standard drink = 0.6 oz pur e alcohol) [facility] Utilities Answer Date Recorded In the past 12 months has [employer] electric, gas, oil, or water company threatened to shut off services in your home? No 07/22/2024 Overall Financial Resource Strain (CARDIA) Answe r Date Recorded How hard is it for you to pa y for the very basics like food, housing, medical care, and heating? Not hard at all 07/22/2024 PHQ-2 Answer Date Recorded PHQ-2 Total Score 0 07/22/2024 [facility] [facility] Occupat ional Health - Occupational Stress [...] No 01/21/2020 [facility] IP Transportation Answer D ate Recorded [...] can return call to Lexis Kahn RN Street Light Mechanic Care Management Team [facility] [phone] documented in this encounter Plan of Treatment [...] documented as of this encounter Care Teams Commercial Specialist Relationship Specialty Start Date End Date Viridiana Oropeza MD [address] [place] [address] PCP - General 01/19/09 09/14/24 Pankaj Navarro MD [address] [place] [address] [address] [place] [address] Physician Otolaryngology 09/18/23 documented as of this encounter
--- OUTSIDE RECORDS SUMMARY | 2024-09-25 12:43 | XMS_ITS | Clinical Summary ---
Author Organization [facility] Address [address] [address] Phone Care Team Providers Care Commercial Journeyman Electrician Name Role Phone Pankaj Navarro MD Unavailable [phone] Viridiana Oropeza MD Primary Care Provider [phone] Allergies Active Allergy Reactions Criticality Noted Date [...] migh t be different from the original. Pharmacy:[id number] - [place] [address] [address] [phone] Controlled Contract Updated / Signed 08/17/2022- [facility] Informed Consent Updated / Signed [...] Type Department Care Team Description 09/22/2024 Telephone [facility] [address] [place], [place] [id number] Johnathan Parrish MD Relaying Information (FAX) 09/15/2024 Patient Outreach [facility] [address] [place] [address] Viridiana Oropeza MD Central Patient Navigator Outreach (AWV Questionnaire) 08/07/2024 Telephone [facility] [address] [place] [address] Viridiana Oropeza MD Refill (Oxycodone - refill ) 07/30/2024 Patient Outreach [facility] [address] Appointment [place] [address] Wen Ayers, DAVID CM- Telephonic Outreach; Hospital Follow Up 07/28/2024 Patient Outreach [facility] [address] Appointment [place] [address] Lexis Kahn RN Hospital Follow Up 07/21/2024 4:39 PM EDT - 07/26/2024 4:06 PM EDT Hospital Encounter EDG [address] [place] [address] Cat Jules MD Buchanan, Jamie L, DO ZAC (acute kidney injury) (Primary Dx); Pancolitis (HCC) Discharge Disposition: Home or Self Care 07/21/2024 Travel 07/07/2024 Telephone [facility] [address] [place] [address] Viridiana Oropeza MD Refill (Percocet refill request) 06/27/2024 10:42 AM EDT - 06/27/2024 12:11 PM EDT [facility] [place] [phone] Mango Carvajal MD Allergic drug rash (Primary [...] COLONOSCOPY ; Surgeon: Pankaj Chavez MD; Location: [facility] ENDOSCOPY; Service: Endoscopy HIP SURGERY 02/11/1995 [...] drink = 0.6 oz pur e alcohol) [facility] Utilities Answer Date Recorded In [...] Total Score 0 07/22/2024 [facility] [place] of Occupat ional Health - Occupational Stress [...] needed for daily living? No 01/21/2020 [facility] IP Transportation Answer D ate [...] Chicas, DAVID Medical Devices Implanted Type Area [employer] Device Identifier Shelf Expiration Date Model / [...] - 100 mg/dL 07/26/2024 11:21 AM EDT [facility] Sample Type Capillary 07/26/2024 11:21 AM EDT [facility] Patient Status Non-Critical Patient 07/26/2024 11:21 AM EDT [facility] Blood BLOOD SPECIMEN / Unknown 07/26/2024 11:20 AM EDT 07/26/2024 11:21 AM EDT us Anil Thompson DO POINT OF CARE TEST ORDERABLE S Final Result Performing Organization Address City/[facility] Co de Phone Number [facility] [address] [place], [place] [id number] * ECG AND WAVEFORMS - TELEMETRY (07/26/2024 7:58 AM EDT) Only the most recent of8 resultswithin the time period is included. ECG INTERPRET Sinus with IVCD [facility] 07/26/2024 7:58 AM EDT Narrative [facility] - 07/26/2024 8:03 AM EDT EH - ROUTINE AL 0.20 QRS 0.11 RR 0.88 QT 0.37 QTc 0.39 See Clinical Report link for waveform capture us Unknown Provider POINT OF CARE CARDIOLOGY Final Result [facility] [address] [place] [phone] * (ABNORMAL) CBC WITH DIFF (07/26/2024 6:09 [...] 7:44 AM EDT [facility] [place] Percent 6.1 % 07/26/2024 7:44 AM EDT [facility] Eos Percent 4.2 % 07/26/2024 7:44 AM EDT [facility] Baso Percent 0.4 % 07/26/2024 7:44 AM EDT [facility] Neut # 4.9 1.6 - 6.1 x10(3)/[facility] 07/26/2024 7:44 AM EDT [facility] Comment:Neutrophils equals s egs plus bands IMMGRAN# 0.1 0.0 - 0.1 x10(3)/[facility] 07/26/2024 7:44 AM EDT [facility] Comment:Automated count of m etamyelocytes, myelocytes and promyelocytes. An absolute IG <0.1 is reported as 0.0. Lymph # 4.9(H) 1.2 - 3.9 x10(3)/[facility] 07/26/2024 7:44 AM EDT [facility] [place] # 0.7 0.3 - 0.9 x10(3)/[facility] 07/26/2024 7:44 AM EDT [facility] Eos# 0.5 0.0 - 0.5 x10(3)/[facility] 07/26/2024 7:44 AM EDT [facility] Baso # 0.0 0.0 - 0.1 x10(3)/[facility] 07/26/2024 7:44 AM EDT [facility] Blood VENOUS BLOOD / Unknown Venipuncture / Unknown 07/26/2024 6:09 AM EDT 07/26/2024 7:29 AM EDT us Anil Thompson DO HEMATOLOGY ORDERABLES Final Result [facility] [address] [facility] , [place] [address] * EC ECHOCARDIOGRAM LIMITED (07/25/2024 [...] - 99 mg/dL 07/25/2024 8:18 AM EDT [facility] BUN 13 8 - 23 mg/dL 07/25/2024 8:18 AM EDT [facility] Creatinine 1.40(H) 0.67 - 1.30 mg/dL 07/25/2024 8:18 AM EDT [facility] eGFR (CKD-EPIcr 2020) 55(L) >=60 mL/min/1.7 3 m2 07/25/2024 8:18 AM EDT [facility] Comment:Estimated GFR was ca lculated using the CKD-EPIcr (2020) equation refit without race. The equation is recommended by the National Kidney Foundation - [place] [employer] of Nephrology Task Force. Blood VENOUS BLOOD / Unknown Venipuncture / Unknown 07/25/2024 6:23 AM EDT 07/25/2024 7:43 AM EDT us Anil Thompson DO CHEMISTRY ORDERABLES Final R esult Performing Organization Address [facility] Co de Phone Number [address] , [place] [address] * BLOOD CULTURE (NO STAIN) (07/23/2024 8:10 AM EDT) Only the most recent of4 resultswithin the time period is included. Culture Result No Growth at 120 hours. BLOOD CULTURE (NO STAIN) 07/28/2024 9:00 AM EDT [facility] Blood VENOUS BLOOD / Unknown Venipuncture / Unknown 07/23/2024 8:10 AM EDT 07/23/2024 8:20 AM EDT us Chapo Calvin MD MICROBIOLOGY - GENERAL ORDER ARJUN Final Result Performing Organization Address [facility] Co de Phone Number [address] , [place] [address] * (ABNORMAL) SEDIMENTATION RATE AUTOMATED (07/23/2024 8:10 AM EDT) Only the most recent of2 resultswithin the time period is included. Sed Rate 39(H) 0 - 20 mm/hr 07/23/2024 9:28 AM EDT [facility] Blood VENOUS BLOOD / Unknown Venipuncture / Unknown 07/23/2024 8:10 AM EDT 07/23/2024 8:21 AM EDT Chapo Calvin MD HEMATOLOGY ORDERABLES Final Result Performing Organization Address [facility] de Phone Number [facility] [address] [place] [address] , [place] [address] * (ABNORMAL) C-REACTIVE PROTEIN (07/23/2024 8:10 AM EDT) Only the most recent of2 resultswithin the time period is included. CRP 94.55(H) <=5.00 mg/L 07/23/2024 12:34 PM EDT [facility] Blood VENOUS BLOOD / Unknown Venipuncture / Unknown 07/23/2024 8:10 AM EDT 07/23/2024 8:21 AM EDT Chapo Calvin MD CHEMISTRY ORDERABLES Final R esult Performing Organization Address [facility] de Phone Number [employer] [facility] [address] [place] [address] , [place] [address] * (ABNORMAL) CREATINE KINASE (07/23/2024 8:10 AM EDT) CK 13(L) 39 - 308 U/L 07/23/2024 12:34 PM EDT [employer] [facility] Blood VENOUS BLOOD / Unknown Venipuncture / Unknown 07/23/2024 8:10 AM EDT 07/23/2024 8:21 AM EDT Chapo Calvin MD CHEMISTRY ORDERABLES Final R esult Performing Organization Address City/[facility] Co de Phone Number [facility] [address] [facility] , [place] [address] * (ABNORMAL) COMPREHENSIVE METABOLIC PANEL (07/23/2024 8:10 [...] 07/23/2024 9:14 AM EDT [facility] Comment:Estimated GFR was ca lculated using the CKD-EPIcr (2020) equation refit without race. The equation is recommended by the National Kidney Foundation - [place] [employer] of Nephrology Task Force. Blood VENOUS BLOOD / Unknown Venipuncture / Unknown 07/23/2024 8:10 AM EDT 07/23/2024 8:21 AM EDT us Chapo Calvin MD CHEMISTRY ORDERABLES Final R esult Performing Organization Address City/[facility]/ZIP Co de Phone Number [facility], [address] , [place] [address] * (ABNORMAL) C DIFF INTERPRETATION (07/22/2024 12:04 PM EDT) C Diff Toxin DNA Positive(A) Negative 07/22/2024 1:41 PM EDT [facility] NAP1 Presumptive Neg Presumptive Neg 07/22/2024 1:41 PM EDT [facility] GDH Antigen Positive(A) Negative 07/22/2024 1:41 PM EDT [facility] C diff toxin A/B Positive(A) Negative 07/22/2024 1:41 PM EDT [facility] Stool RECTUM STRUCTURE / Unknown 07/22/2024 12:04 PM EDT 07/22/2024 12:11 PM EDT Narrative [facility] - 07/22/2024 1:41 PM EDT Toxin producing C diff target DNA sequences detected. Toxins A/B positive. CDI likely. Consider initiation of severity-based CDI therapy according to CDI management guidance. us Anil Thompson DO MICROBIOLOGY - GENERAL ORDER ARJUN Final Result Performing Organization Address City/[facility]/ZIP Co de Phone Number [facility], [address] , [place] [address] * C DIFF GDH AG AND TOXIN A+B (07/22/2024 12:04 PM EDT) Stool RECTUM STRUCTURE / Unknown 07/22/2024 12:04 PM EDT 07/22/2024 12:11 PM EDT Anil Thompson DO MICROBIOLOGY - GENERAL ORDER ARJUN Final Result Performing Organization Address City/[facility]/ZIP Co de Phone Number [facility] [address] [facility] [address] [facility] , [address] [place] [phone] * C DIFF TOXIN DNA (07/22/2024 12:04 PM EDT) Stool RECTUM STRUCTURE / Unknown 07/22/2024 12:04 PM EDT 07/22/2024 12:11 PM EDT Anil Thompson DO MICROBIOLOGY - GENERAL ORDER ARJUN Final Result Performing Organization Address [facility] Co de Phone Number [facility] [address] [facility] [address] [facility] , [place] [address] * SHIGA TOXIN (07/22/2024 12:04 PM EDT) Shiga Toxin Shiga toxins (produced by E. coli) not detected. Shiga toxins (produced by E. coli) not detected. 07/23/2024 5:08 PM EDT [facility] [address] [facility] Stool RECTUM STRUCTURE / Unknown 07/22/2024 12:04 PM EDT 07/22/2024 9:23 PM EDT Anil Thompson DO MICROBIOLOGY - GENERAL ORDER ARJUN Final Result Performing Organization Address City/[facility]/ZIP Co de Phone Number [facility] [place], [facility] [address] [facility] , [place] [address] * STOOL CULTURE (NO STAIN) (07/22/2024 12:04 PM EDT) Culture No growth of enteric pathogens, including Salmonella, Shigella, Campylobacter, Vibrio, Yersinia, Aeromonas, Plesiomonas, or E. coli O157. 07/24/2024 7:50 AM EDT [facility] Stool RECTUM STRUCTURE / Unknown 07/22/2024 12:04 PM EDT 07/22/2024 12:11 PM EDT Anil Thompson DO MICROBIOLOGY - GENERAL ORDER ARJUN Final Result Performing Organization Address [facility] Co de Phone Number [facility], [address] , [place] [address] * OVA AND PARASITE BASIC (07/22/2024 12:04 PM EDT) Giardia Lamblia Antigen Not Detected Not detected 07/22/2024 6:39 PM EDT [facility] Cryptosporidium Exam Not Detected Not Detected 07/22/2024 6:39 PM EDT [facility] Stool RECTUM STRUCTURE / Unknown 07/22/2024 12:04 PM EDT 07/22/2024 12:11 PM EDT Anil Thompson DO MICROBIOLOGY - GENERAL ORDER ARJUN Final Result Performing Organization Address [facility] Co de Phone Number [facility], [address] , [place] [address] * US RENAL AND BLADDER (07/22/2024 10:53 [...] evaluation of the kidneys and bladder with career representative images and animal laboratory technician notes sent to PACS for radiologist review. [...] sonographic evaluation of the kidneys andbladder with career representative images and animal laboratory technician notes sent to PACS forradiologist review. FINDINGS: [...] x10(3)/mcL 07/22/2024 6:40 AM EDT [facility] RBC 3.48(L) 4.60 - 6.10 x10(6)/mcL 07/22/2024 [...] 07/22/2024 6:40 AM EDT [facility] MCHC 30.1(L) 30.7 - 35.5 g/dL 07/22/2024 6:40 AM EDT [facility] RDW 15.6(H) <=14.9 % 07/22/2024 6:40 AM EDT [facility] Platelet 266 155 - 369 x10(3)/mcL 07/22/2024 6:40 AM EDT [facility] MPV 9.9 8.8 - 12.5 fL 07/22/2024 6:40 AM EDT [facility] Blood VENOUS BLOOD / Unknown Venipuncture / Unknown 07/22/2024 4:45 AM EDT 07/22/2024 5:07 AM EDT us Nury Mcdermott APRN HEMATOLOGY ORDERABLES Final R esult [facility] [address] [facility] , [place] [address] * VANCOMYCIN LEVEL (07/22/2024 4:45 AM EDT) Vanco Random 14.6 mcg/mL 07/22/2024 5:44 AM EDT [facility] Blood VENOUS BLOOD / Unknown Venipuncture / Unknown 07/22/2024 4:45 AM EDT 07/22/2024 5:07 AM EDT us Cat Jules MD CHEMISTRY ORDERABLES Final Result [facility] [address] [facility] , [place] [address] * (ABNORMAL) URINALYSIS REFLEX (07/21/2024 6:04 PM [...] /HPF 07/21/2024 6:17 PM EDT [facility] Urine STRUCTURE OF URINARY TRACT PROPER / Unknown 07/21/2024 6:04 PM EDT 07/21/2024 6:09 PM EDT Cat Jules MD URINE ORDERABLES Final Res ult Performing Organization Address City/[facility]/ZIP Co de Phone Number [facility] [address] [facility] , [place] [address] * EXTRA BE URINE CX (07/21/2024 6:04 PM EDT) Urine STRUCTURE OF URINARY TRACT PROPER / Unknown 07/21/2024 6:04 PM EDT 07/21/2024 6:09 PM EDT Cat Jules MD MICROBIOLOGY - GENERAL ORD ERABLES Final Result Performing Organization Address [facility] Co de Phone Number [place] [phone] * URINE CULTURE (NO STAIN) (07/21/2024 6:04 PM EDT) Culture Multiple bacterial species isolated from urine consistent with urogenital commensal organisms. 07/23/2024 3:11 AM EDT [facility] Urine STRUCTURE OF URINARY TRACT PROPER / Unknown 07/21/2024 6:04 PM EDT 07/21/2024 6:17 PM EDT Cat Jules MD MICROBIOLOGY - GENERAL ORD ERABLES Final Result Performing Organization Address City/[facility]/ZIP Co de Phone Number [facility] [place], [facility] [address] [facility] , [place] [address] * (ABNORMAL) PROCALCITONIN (07/21/2024 5:42 PM EDT) Procalcitonin 0.50(H) <=0.49 ng/mL 07/21/2024 6:35 PM EDT [facility] Blood VENOUS BLOOD / Unknown Venipuncture / Unknown 07/21/2024 5:42 PM EDT 07/21/2024 5:51 PM EDT Narrative [facility] - 07/21/2024 6:35 PM EDT [...] to severe sepsis and/or septic shock. Cat uJles MD CHEMISTRY ORDERABLES Final Result Performing Organization Address City/[facility]/ZIP Co de Phone Number [facility] [address], [place] [address] * LACTIC ACID (07/21/2024 5:42 PM EDT) Lactic Acid 1.2 0.5 - 1.9 mmol/L 07/21/2024 5:59 PM EDT [facility] Blood VENOUS BLOOD / Unknown Venipuncture / Unknown 07/21/2024 5:42 PM EDT 07/21/2024 5:45 PM EDT Cat Jules MD CHEMISTRY ORDERABLES Final Result Performing Organization Address City/[facility]/ZIP Co de Phone Number [facility] [address] [place] [address] * XR CHEST AP PORTABLE (07/21/2024 [...] GRAM POS (07/21/2024 4:58 PM EDT) Pathologist [facility] BACILLUS CEREUS GROUP Not Detected Not Detected [...] 07/22/2024 6:26 PM EDT [facility] STREPTOCOCCUS PYOGENES (GROUP A) Not Detected Not Detected 07/22/2024 6:26 PM EDT [facility] mecA Not Detected. Methicillin Resistance due to other mechanisms cannot be excluded. 07/22/2024 6:26 PM EDT [facility] mecC Not Detected. Methicillin Resistance due to other mechanisms cannot be excluded. 07/22/2024 6:26 PM EDT [facility] [address] [facility] Blood VENOUS BLOOD / Unknown Venipuncture / Unknown 07/21/2024 4:58 PM EDT 07/21/2024 5:02 PM EDT us Cat Jules MD MICROBIOLOGY - GENERAL ORD ERABLES Final Result Performing Organization Address [facility]/ZIP Co de Phone Number [facility] , [place] [address] * (ABNORMAL) HEMOGLOBIN A1C (04/28/2024 11:37 AM EDT) [facility] Hgb A1C 6.4(H) 4.2 - 5.6 % 04/28/2024 10:06 PM EDT [facility] Est. Avg Glucose 137 mg/dL 04/28/2024 10:06 PM EDT [facility] Blood VENOUS BLOOD / Unknown Venipuncture / Unknown 04/28/2024 11:37 AM EDT 04/28/2024 11:37 AM EDT Narrative [facility] [address] [facility] - 04/28/2024 10:06 PM EDT [...] ORDERABLES Final Resu lt Performing Organization Address City/[facility]/ZIP Co de Phone Number [facility] [address] , [place] [address] [facility] [address] [place] [address] * (ABNORMAL) LIPID SCREEN (01/06/2024 11:42 AM EST) Cholesterol 141 <200 mg/dL 01/06/2024 4:22 PM EST [facility] Comment: < 200 Desirable 200 - 239 Borderline High >= 240 High Triglyceride 179(H) <150 mg/dL 01/06/2024 4:22 PM EST [facility] Comment: < 150 Normal 150 - 199 Borderline High 200 - 499 High >= 500 Very High HDL 34(L) >=40 mg/dL 01/06/2024 4:22 PM EST [facility] Comment: > 60 Optimal 40 - 60 Acceptable < 40 Low LDL Calculated 76 <100 mg/dL 01/06/2024 4:22 PM EST [facility] Comment: < 100 Optimal 100 - 129 Near or above optimal 130 - 159 Borderline High 160 - 189 High >= 190 Very High Non-HDL-C Calculated 107 <=129 mg/dL 01/06/2024 4:22 PM EST [facility] Comment: <130 Desirable 130-159 Above Desirable 160-189 Borderline High 190-219 High >= 220 Very High Fasting Specimen? Yes None 024 4:22 PM EST [facility] Blood VENOUS BLOOD / Unknown Venipuncture / Unknown 01/06/2024 11:42 AM EST 01/06/2024 11:42 AM EST us Viridiana Oropeza MD CHEMISTRY ORDERABLES Final Resu lt [facility] [address] [facility] [address] [place] [address] [facility] [address] [place] [address] * MICROALBUMIN/CREATININE RATIO URINE (06/26/2023 2:30 PM EDT) Urine Microalb 27.3 mg/L 06/26/2023 10:34 PM EDT [facility] Urine Creatinine 189.4 mg/dL 06/26/2023 10:34 PM EDT [facility] Ur Microalb/Creat 14 0 - 30 mg/g 06/26/2023 10:34 PM EDT [facility] Urine URINE SPECIMEN COLLECTION / Unknown 06/26/2023 2:30 PM EDT 06/26/2023 2:30 PM EDT Viridiana Oropeza MD URINE ORDERABLES Final Result Performing Organization Address [facility] Co de Phone Number [facility] [address] [facility], [place] [address] * DIABETES EYE EXAM (11/19/2017) Left Diabetic Retinopathy Not Present Present/Not Present SEP OFFICE Right Diabetic Retinopathy Not Present Present/Not Present SEP OFFICE Viridiana Oropeza MD HEALTH MAINTENANCE Final Result Performing Organization Address [facility] de Phone Number SEP OFFICE * GMED COLONOSCOPY (06/16/2015 10:15 AM EDT) 06/16/2015 10:1 5 AM EDT Impressions [facility] - 06/16/2015 11:43 AM EDT Grade 1 internal hemorrhoids. Normal mucosa in the whole colon. Plan: Screening Colonoscopy in 10 years. This section is an excerpt of the full report. Pankaj Chavez MD GI PROCEDURE ORDERABLES Jaimee l Result Performing Organization Address [facility] Co de Phone Number [facility] [address] [place] [address] * HEPATITIS C ANTIBODY IGM + IGG (01/24/2011 10:10 AM EST) Hep C Ab Negative Negative [facility] Blood specimen (specimen) VENOUS STRUCTURE / Unknown 01/24/2011 10:10 AM EST 01/24/2011 10:21 AM EST Nereida Valle MD IMMUNOLOGY ORDERABLES Fin al Result Performing Organization Address [facility] Co de Phone Number [facility] [address] [place] [address] from Last 3 Months or Most Recently Relevant to Health Maintenance Additional Health Concerns Infection Onset Date Last Indicated C-diff 07/22/2024 07/22/2024 [place] [id number] [place] MEDICARE PART B [employer] [place] [id number] [place] [address] [facility] [place] [id number] MDR MEDICARE PART B MEDICARE PART B [facility] [id number] [facility] [place] [address] MDR Advance Directives For more information, please contact: [phone] * Full Code (Latest Code Status on File) Date Activated Date Inactivated Comments 07/21/2024 8:09 PM 07/26/2024 8:11 PM * Full Code Date Activated Date Inactivated Comments 08/28/2023 10:07 PM 09/03/2023 5:46 PM Care Teams Commercial Journeyman Electrician Relationship Specialty Start Date End Date Viridiana Oropeza MD [address] [place] [address] PCP - General Family Medicine 09/23/24 Pankaj Navarro MD [address] [place] [id number] Physician Otolaryngology 09/18/23
--- OUTSIDE RECORDS SUMMARY | 2024-09-25 12:43 | XMS_ITS | Encounter Summary ---
Author Organization [facility] Address [address] [id number] Care Team Providers Care Soap Mixer Name Role Phone Viridiana Oropeza MD Primary Care Provider [phone] Gerardo Mcbride Unavailable [phone] Reason for Referral * Consultation (Routine) - Closed Specialty Diagnoses / Procedures Referred By Contac t Referred To Contact Orthopaedic Surgery Diagnoses Pain in right hip Pain in left hip Cristobal Rosales PA [address] [place] [address] Phone: tel: fax: Alejandro Rojas MD [address] [facility] [address] [place] [address] Phone: tel: fax: Referral ID Status Reason Start Date Expiration Date V isits Requested Visits Authorized [id number] Closed Specialty Services Required 03/08/2022 09/07/2023 1 1 Encounter Details Date Type Department Care Team (Late st Contact Info) Description 03/08/2022 Community Orders Community Practice [address] [place] [address] Cristobal Rosales PA [address] [place] [address] Pain in right hip (Primary [...] documented as of this encounter Care Teams Soap Mixer Relationship Specialty Start Date End Date Viridiana Oropeza MD [address] [place] [address] PCP - General 03/13/22 Gerardo Mcbride [address] [place] [address] 08/23/23 documented as of this encounter
--- OUTSIDE RECORDS SUMMARY | 2024-09-25 12:43 | XMS_ITS | Encounter Summary ---
Author Organization [place] [address] Care Team Providers Care Forklift Driver Name Role Phone Pankaj Navarro MD Unavailable [phone] Viridiana Oropeza MD Primary Care Provider [phone] Reason for Visit * Reason Onset Date Comments Relaying Information 09/22/2024 FAX Encounter Details Date Type Department Care Team (Late st Contact Info) Description 09/22/2024 Telephone [facility] [address] [place] [address] Johnathan Parrish MD [address] [place] [address] Relaying Information (FAX) Social History Tobacco Use Types Packs/Day Years Used Date Smoking Tobacco: Never Passive Smoke Exposure: Never Smokeless Tobacco: Never Alcohol Use Standard Drinks/Week Comments No 0 (1 standard drink = 0.6 oz pur e alcohol) [facility] Utilities Answer Date Recorded In the past 12 months has [employer], gas, oil, or water [employer] threatened to shut off services in your home? No 07/22/2024 Overall Financial Resource Strain (CARDIA) Answe r Date Recorded How hard is it for you to pa y for the very basics like food, housing, medical care, and heating? Not hard at all 07/22/2024 PHQ-2 Answer Date Recorded PHQ-2 Total Score 0 07/22/2024 [facility] [place] of Occupat ional Health - Occupational Stress [...] things needed for daily living? No 01/21/2020 [facility] IP Transportation Answer D ate [...] is Calling: Insurance Company/Law Office Len[place] w/ [employer] regarding CMS (include office companyand caller's name) [...] documented as of this encounter Care Teams Forklift Driver Relationship Specialty Start Date End Date Viridiana Oropeza MD [address] [place] [address] PCP - General Family Medicine 09/23/24 Pankaj Navarro MD [address] [place] [address] Physician Otolaryngology 09/18/23 documented as of this encounter
--- OUTSIDE RECORDS SUMMARY | 2024-09-25 12:43 | XMS_ITS | Encounter Summary ---
Author Organization [place] [address] Care Team Providers Care Candy Wrapping Machine Operator Name Role Phone Viridiana Oropeza MD Primary Care Provider [phone] Pankaj Navarro MD Unavailable [phone] Reason for Visit * Reason Onset Date Comments CM- Telephonic Outreach 07/30/2024 Hospital Follow Up 07/30/2024 Encounter Details Date Type Department Care Team (Late Contact Info) Description 07/30/2024 Patient Outreach [facility] Managment [address] Appointment Location May Differ [place] [id number] Wen Ayers, RN CM- Telephonic Outreach; Hospital Follow Up Social History Tobacco Use Types Packs/Day Years Used Date Smoking Tobacco: Never Passive Smoke Exposure: Never Smokeless Tobacco: Never Alcohol Use Standard Drinks/Week Comments No 0 (1 standard drink = 0.6 oz pur e alcohol) [facility] Utilities Answer Date Recorded In the past 12 months has [employer], gas, oil, or water [employer] threatened to shut off services in your home? No 07/22/2024 Overall Financial Resource Strain (CARDIA) Answe r Date Recorded How hard is it for you to pa y for the very basics like food, housing, medical care, and heating? Not hard at all 07/22/2024 PHQ-2 Answer Date Recorded PHQ-2 Total Score 0 07/22/2024 [facility] [place] of Occupat ional Health - Occupational [...] things needed for daily living? No 01/21/2020 [facility] IP Transportation Answer D ate Recorded [...] Patient can return call to Wen Ayers [phone] documented in this encounter Plan of Treatment [...] documented as of this encounter Care Teams Candy Wrapping Machine Operator Relationship Specialty Start Date End Date Viridiana Oropeza MD [address] [place] [address] PCP - General 01/19/09 09/14/24 Pankaj Navarro MD [address] [place] [address] Physician Otolaryngology 09/18/23 documented as of this encounter
--- OUTSIDE RECORDS SUMMARY | 2024-09-25 12:43 | XMS_ITS | Clinical Summary ---
Author Organization [facility] Address [address] [place] [address] Care Team Providers Care Cdl Team Truck Driver Name Role Phone Viridiana Oropeza MD Primary Care Provider [phone] MarcellusaddisonkileyGerardo pink Unavailable Allergies Active Allergy Reactions Criticality Noted Date [...] Type Department Care Team Description 08/05/[address] [address] Roxana Wagoner 07/20/2024 10:30 AM EDT Office Visit [address] [address] Wilfredo Forte MD Infection of prosthetic joint, subsequent encounter (Primary Dx) 07/20/2024 Results Follow-Up [address] [address] Wilfredo Forte MD abnormal labs [...] [facility] [address] [facility], [address] [place] [address] Alejandro Rojas MD HCN - [...] answer 05/04/2024 How often do you attend [facility] or rastafarian services? Patient unable to answer 05/04/2024 Do you belong to any clubs o r organizations such as judaism groups, unions, fraternal or athletic groups, or [...] Recorded Patient Health Questionnaire-2 Score 0 06/15/2024 [facility] Questionnaire Answer [...] any time in the past 12 m [facility], were you homeless or living in a residential (including now)? No 05/04/2024 Utilities Answer Date Recorded In the past 12 months has th e [employer], gas, oil, or water [employer] threatened to shut off services in your [...] - Risk 60-74 years 1-dose series) 2016 [id number] Vaccine ( season) 2023 03/27/2023, 08/17/2021, 12/20/2020, [...] Wagoner PA Medical Devices Implanted Type Area Political Science Research Assistant Device Identifier Shelf Expiration Date Model / Serial / Lot Cement Palacos W/Gent - Sn/A - [id number] Implanted:Qty : 1 on 05/02/2024 by Denis Stevenson MD at [facility] Cement Right: Hip [id number] 05/12/2027 [id number] / N/A / [id number] Implant Implant Biljosea l: Hip Liner Ref Xlpe 36 20 Deg 54-56 F - [id number] Implanted:Qty : 1 on 03/26/2024 by Alejandro Rojas MD at [facility] Right: Hip [employer]hew [employer]-[id number] 07/27/2029 [id number] / / [id number] Hip Head Oxi Fm Tpr 36 +8 - [id number] Implanted:Qty : 1 on 03/26/2024 by Alejandro Rojas MD at [facility] Right: Hip [employer]-[id number] 07/01/2032 [id number] / / [id number] Chg Stem Redapt U[place]hur 300mm So Sz21 - [id number] Implanted:Qty : 1 on 05/07/2024 by Alejandro Rojas MD at [facility] Right: Hip [employer]-[id number] 09/06/2031 [id number] / / [id number] Chg Head Oxinium Fem 01/24 28m - [id number] Implanted:Qty : 1 on 05/07/2024 by Alejandro Rojas MD at [facility] Right: Hip [employer]-[id number] 10/27/2033 [id number] / / [id number] Shell Modular Redapt 62mm - [id number] Implanted:Qty : 1 on 05/07/2024 by Alejandro Rojas MD at [facility] Right: Hip [employer]-[id number] 10/21/2032 [id number] / / [id number] Chg Screw Ref Spher Head 25mm - [id number] Implanted:Qty : 1 on 05/07/2024 by Alejandro Rojas MD at [facility] Right: Hip [employer]-[id number] 11/04/2033 [id number] / / [id number] Liner Or3o Dual Mbility 48 62 - [id number] Implanted:Qty : 1 on 05/07/2024 by Alejandro Rojas MD at [facility] Right: Hip [employer]-[id number] 06/24/2032 [id number] / / [id number] Chg Screw Ref Spher Head 25mm - [id number] Implanted:Qty : 1 on 05/07/2024 by Alejandro Rojas MD at [facility] Right: Hip [employer]-[id number] 11/02/2033 [id number] / / [id number] Chg Screw Redapt Lock 15mm - [id number] Implanted:Qty : 1 on 05/07/2024 by Alejandro Rojas MD at [facility] Right: Hip [employer]-[id number] 09/23/2033 [id number] / / [id number] Liner Or3o Dual Mbility Xlpe 28 48 - [id number] Implanted:Qty : 1 on 05/07/2024 by Alejandro Rojas MD at [facility] Right: Hip [employer]-[id number] 01/09/2030 [id number] / / [id number] Procedures Procedure Name Priority Date/Time Associated Diagnosis [...] CBC and Differential (07/20/2024 10:40 AM EDT) [facility] WBC Count 20.96(H) 3.70 - [...] Re sult [facility] [address] [place] [address] * (ABNORMAL) C-reactive protein (07/20/2024 10:40 AM [...] sult [facility] [address] [place] [address] * (ABNORMAL) Comprehensive Metabolic Panel, Plasma (07/20/2024 [...] Re sult [facility] [address] [place] [address] * (ABNORMAL) Hemoglobin A1c (05/02/2024 2:46 AM [...] Adults <6.0% Children and Adolescents <7.5% Source: [place] [employer] Association. Standards of medical care in diabetes,2017. Diabetes Care.2017:40 (suppl 1):S1-S135. HbA1c assay performed by an ion-exchange chromatography method that is certified traceable to the DCCT. us Regan Frank MD LAB BLOOD ORDERABLES Final Resul t [facility] [address] [place] [address] from Last 3 Months or Most Recently Relevant to Health Maintenance Additional Health Concerns Active Problems Noted Date Diagnosed Date Autogenerated Problem 07/17/2024 Autogenerated Problem 06/05/2024 Insurance [facility] [place] [address] Advance Directives * Full Code (Latest Code Status on File) Date Activated Date Inactivated Comments 05/02/2024 3:18 PM 05/13/2024 6:35 PM * Full Code Date Activated Date Inactivated Comments 05/02/2024 5:18 AM 05/02/2024 3:18 PM * Full Code Date Activated Date Inactivated Comments 03/26/2024 12:27 PM 04/01/2024 9:30 PM Question Answer Comments Patient has decision-making capacity? Yes Care Teams Cdl Team Truck Driver Relationship Specialty Start Date End Date Viridiana Oropeza MD [address] [place] [address] PCP - General 03/13/22 Gerardo Mcbride [address] [place] [address] 08/23/23
--- OUTSIDE RECORDS SUMMARY | 2024-09-25 12:43 | XMS_ITS | Encounter Summary ---
Author Organization [place] [address] Care Team Providers Care Drier Feeder Name Role Phone Viridiana Oropeza MD Primary Care Provider [phone] Pankaj Navarro MD Unavailable [phone] Encounter Details Date Type Department Care Team (Late st Contact Info) Description 06/23/2024 Results Follow-Up [facility] [address] [place] [address] Lucia Dunlap PA-C [address] [place] [address] COMPLIANCE OPIOID PANEL QUANT ONLY, URINE Social History Tobacco Use Types Packs/Day Years Used Date Smoking Tobacco: Never Passive Smoke Exposure: Never Smokeless Tobacco: Never Alcohol Use Standard Drinks/Week Comments No 0 (1 standard drink = 0.6 oz pur e alcohol) [facility] Utilities Answer Date Recorded In the past 12 months has [employer], gas, oil, or water [employer] threatened to shut off services in your home? No 07/22/2024 Overall Financial Resource Strain (CARDIA) Answe r Date Recorded How hard is it for you to pa y for the very basics like food, housing, medical care, and heating? Not hard at all 07/22/2024 PHQ-2 Answer Date Recorded PHQ-2 Total Score 0 07/22/2024 [facility] of Occupat ional Health - Occupational Stress [...] things needed for daily living? No 01/21/2020 [facility] IP Transportation Answer D ate [...] 07/21/2024 4:08 PM Genesis Carey RN * [place] Suicide Severity Rating Scale (Q shift for [...] documented as of this encounter Care Teams Drier Feeder Relationship Specialty Start Date End Date Viridiana Oropeza MD [address] [place] [address] PCP - General 01/19/09 09/14/24 Pankaj Navarro MD [address] [place] [address] Physician Otolaryngology 09/18/23 documented as of this encounter
--- OUTSIDE RECORDS SUMMARY | 2024-09-25 12:43 | XMS_ITS | Encounter Summary ---
Author Organization [place] [address] Care Team Providers Care Net Wpf Developer Name Role Phone Viridiana Oropeza MD Primary Care Provider Pankaj Navarro MD Unavailable Reason for Visit * Reason Onset Date Comments Refill 07/07/2024 Percocet refill request Encounter Details Date Type Department Care Team (Late st Contact Info) Description 07/07/2024 Telephone [facility] [address] [place] [address] Viridiana Oropeza MD [address] [place] [address] Refill (Percocet refill request) Social History Tobacco Use Types Packs/Day Years Used Date Smoking Tobacco: Never Passive Smoke Exposure: Never Smokeless Tobacco: Never Alcohol Use Standard Drinks/Week Comments No 0 (1 standard drink = 0.6 oz pur e alcohol) [facility] Utilities Answer Date Recorded In the past 12 months has [employer], gas, oil, or water [employer] threatened to shut off services in your home? No 07/22/2024 Overall Financial Resource Strain (CARDIA) Answe r Date Recorded How hard is it for you to pa y for the very basics like food, housing, medical care, and heating? Not hard at all 07/22/2024 PHQ-2 Answer Date Recorded PHQ-2 Total Score 0 07/22/2024 [facility] [place] of Occupat ional [facility] - Occupational Stress Questionnaire Answer Date [...] needed for daily living? No 01/21/2020 [facility] IP Transportation Answer D ate Recorded [...] 07/21/2024 4:08 PM Genesis Carey RN * [place] Suicide Severity Rating Scale (Q shift for [...] Richey RMA - 07/07/2024 9:54 AM EDT Pharmacy:[id number] - [place] [address] [address] [facility] [phone] Controlled Contract Updated / Signed 08/17/2022- [facility] Informed Consent Updated / Signed 08/17/2022 [...] provider: 09/16/24 Pharmacy & Location: [facility] [place] [address] [address] Return Method of Communication: N/A [...] documented as of this encounter Care Teams Net Wpf Developer Relationship Specialty Start Date End Date Viridiana Oropeza MD [address] [place] [address] PCP - General 01/19/09 09/14/24 Pankaj Navarro MD [address] [place] [address] Physician Otolaryngology 09/18/23 documented as of this encounter
--- OUTSIDE RECORDS SUMMARY | 2024-09-25 12:44 | XMS_ITS | Encounter Summary ---
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 No 08/29/2023 Overall Financial Resource Strain (CARDIA) Answe r Date Recorded How hard is it for you to pa y for the very basics like food, housing, medical care, and heating? Not hard at all 08/29/2023 PHQ-2 Answer Date Recorded PHQ-2 Total Score 0 03/23/2024 [facility] of Occupat ional Health - Occupational Stress [...] things needed for daily living? No [facility]21[facility] IP Transportation Answer D ate Recorded In [...] Re sult Performing Organization Address [facility] [place] [address] * CREATININE (06/02/2024 10:00 AM EDT) Creatinine 1.13 0.67 - 1.30 mg/dL 06/02/2024 6:27 PM EDT PREFERRED [facility] eGFR (CKD-EPIcr 2020) 71 >=60 mL/min/1.7 3 m2 06/02/2024 6:27 PM EDT [facility] Comment:Estimated GFR was ca lculated using the CKD-EPIcr (2020) equation refit without race. The equation is recommended by the National Kidney Foundation - [place] Society of Nephrology Task Force. Blood VENOUS BLOOD / Unknown 06/02/2024 10:00 AM EDT 06/02/2024 2:43 PM EDT us Wilfredo Forte MD CHEMISTRY ORDERABLES Final Re sult Performing Organization Address [facility] Co de Phone Number [facility] [address] [place] [address], [place] [address] * (ABNORMAL) C-REACTIVE PROTEIN (06/02/2024 10:00 AM EDT) CRP 26.44(H) <=5.00 mg/L 06/02/2024 6:27 PM EDT [facility] Blood VENOUS BLOOD / Unknown 06/02/2024 10:00 AM EDT 06/02/2024 2:43 PM EDT Wilfredo Forte MD CHEMISTRY ORDERABLES Final Re sult Performing Organization Address City/[facility]/ZIP Co de Phone Number [facility] [address] [facility] , [place] [address] * (ABNORMAL) HEPATIC FUNCTION PANEL [...] ORDERABLES Final Re sult [facility] [address] [facility] , [place] [address] * (ABNORMAL) CBC WITH DIFF [...] 3:23 PM EDT [facility] [place] Percent 9.8 % 06/02/2024 3:23 PM EDT [...] x10(3)/mcL 06/02/2024 3:23 PM EDT [email or web address], [facility] Comment:Automated count of m etamyelocytes, myelocytes and promyelocytes. An absolute IG <0.1 is reported as 0.0. Lymph # 3.3 1.2 - 3.9 x10(3)/[facility] 06/02/2024 3:23 PM EDT [facility] [place] # 0.8 0.3 - 0.9 x10(3)/[facility] 06/02/2024 3:23 PM EDT [facility] Eos# 0.8(H) 0.0 - 0.5 x10(3)/[facility] 06/02/2024 3:23 PM EDT [facility] Baso # 0.0 0.0 - 0.1 x10(3)/[facility] 06/02/2024 3:23 PM EDT [email or web address], [facility] Blood VENOUS BLOOD / Unknown 06/02/2024 10:00 AM EDT 06/02/2024 2:43 PM EDT Wilfredo Forte MD HEMATOLOGY ORDERABLES Final R esult Performing Organization Address [facility] Co de Phone Number [facility], [facility] [address] [facility] , [place] [address] * (ABNORMAL) BLOOD UREA NITROGEN (06/02/2024 10:00 AM EDT) BUN 6(L) 8 - 23 mg/dL 06/02/2024 6:27 PM EDT [email or web address], [facility] Blood VENOUS BLOOD / Unknown 06/02/2024 10:00 AM EDT 06/02/2024 2:43 PM EDT Wilfredo Forte MD CHEMISTRY ORDERABLES Final Re sult Performing Organization Address [facility] Co de Phone Number [email or web address], [facility] [address] [facility] , [place] [address] documented in this encounter Visit [...] documented as of this encounter Care Teams Field Evidence Technician Relationship Specialty Start Date End Date Viridiana Oropeza MD [address] [place] [address] PCP - General 01/19/09 09/14/24 Viridiana Oropeza MD [address] [place] [address] PCP - General Family Medicine 09/23/24 Pankaj Navarro MD [address] [place] [address] Physician Otolaryngology 09/18/23 documented as of this encounter
--- OUTSIDE RECORDS SUMMARY | 2024-09-25 12:44 | XMS_ITS | Encounter Summary ---
Author Organization [facility] [place] [address] Care Team Providers Care Grand Scribe Name Role Phone Viridiana Oropeza MD Primary Care Provider [phone] Pankaj Navarro MD Unavailable Viridiana Oropeza MD Primary Care Provider [phone] Encounter Details Date Type Department Care Team (Late st Contact Info) Description 06/08/2024 Lab Requisition [facility] [place] [address] Wilfredo Forte MD Infection following a procedure, superficial incisional surgical site, subsequent encounter Social History Tobacco Use Types Packs/Day Years Used Date Smoking Tobacco: Never Passive Smoke Exposure: Never Smokeless Tobacco: Never Alcohol Use Standard Drinks/Week Comments No 0 (1 standard drink = 0.6 oz pur e alcohol) [facility] Utilities Answer Date Recorded In the past 12 months has [employer] electric, gas, oil, or water company threatened to shut off services in your home? No 08/29/2023 Overall Financial Resource Strain (CARDIA) Answe r Date Recorded How hard is it for you to pa y for the very basics like food, housing, medical care, and heating? Not hard at all 08/29/2023 PHQ-2 Answer Date Recorded PHQ-2 Total Score 0 03/23/2024 [facility] [place] of Occupat ional Health - Occupational Stress [...] things needed for daily living? No 01/21/2020 [facility] IP Transportation Answer D ate [...] ORDERABLES Final Re sult Performing Organization Address City/[facility]/ZIP Co de Phone Number [facility], [address] , [place] [address] * (ABNORMAL) HEPATIC FUNCTION PANEL (06/08/2024 10:00 AM EDT) Pathologist [facility] Total Protein 6.0(L) 6.4 - 8.3 [...] ORDERABLES Final Re sult Performing Organization Address City/[facility]/ZIP Co de Phone Number [facility], [facility] [address] , [place] [address] * CREATININE (06/08/2024 10:00 AM EDT) Creatinine 1.06 0.67 - 1.30 mg/dL 06/08/2024 8:47 PM EDT [facility] [employer], [facility] eGFR (CKD-EPIcr 2020) 77 >=60 mL/min/1.7 3 m2 06/08/2024 8:47 PM EDT [facility] [employer], [facility] Comment:Estimated GFR was ca lculated using the CKD-EPIcr (2020) equation refit without race. The equation is recommended by the National Kidney Foundation - [place] [employer] Nephrology Task Force. Blood VENOUS BLOOD / Unknown 06/08/2024 10:00 AM EDT 06/08/2024 4:41 PM EDT us Wilfredo Forte MD CHEMISTRY ORDERABLES Final Re sult [facility] [employer] [facility], [facility] [address] , [place] [address] * (ABNORMAL) CBC WITH DIFF (06/08/2024 10:00 AM EDT) WBC 9.0 3.7 - 10.3 x10(3)/mcL 06/08/2024 5:09 PM EDT [facility] RBC 2.89(L) 4.60 - 6.10 x10(6)/mcL 06/08/2024 5:09 PM EDT [facility] [employer], [facility] Hgb 8.3(L) 13.7 - 17.5 g/dL 06/08/2024 5:09 PM EDT [facility] Hct 28.3(L) 40.0 - 51.0 % 06/08/2024 5:09 PM EDT [facility] MCV 97.9 80.0 - 100.0 fL 06/08/2024 5:09 PM EDT [facility] MCH 28.7 26.0 - 34.0 pg 06/08/2024 5:09 PM EDT [facility] MCHC 29.3(L) 30.7 - 35.5 g/dL 06/08/2024 5:09 PM EDT [facility] RDW 15.2(H) <=14.9 % 06/08/2024 5:09 PM EDT [facility] Platelet 294 155 - 369 x10(3)/[facility] 06/08/2024 5:09 PM EDT [facility] MPV 10.8 8.8 - 12.5 fL 06/08/2024 5:09 PM EDT [facility] Neut Percent 37.7 % 06/08/2024 5:09 PM EDT [facility] Comment:Neutrophils equals s egs plus bands Imm Gran% 0.2 % 06/08/2024 5:09 PM EDT [facility] Comment:Automated count of m etamyelocytes, myelocytes and promyelocytes. Lymph Percent 45.4 % 06/08/2024 5:09 PM EDT [facility] [place] Percent 9.0 % 06/08/2024 5:09 PM EDT [facility] Eos Percent 7.3 % 06/08/2024 5:09 PM EDT [facility] Baso Percent 0.4 % 06/08/2024 5:09 PM EDT [facility] Neut # 3.4 1.6 - 6.1 x10(3)/[facility] 06/08/2024 5:09 PM EDT [facility], [facility] Comment:Neutrophils equals s egs plus bands IMMGRAN# 0.0 0.0 - 0.1 x10(3)/[facility] 06/08/2024 5:09 PM EDT [facility], [facility] Comment:Automated count of m etamyelocytes, myelocytes and promyelocytes. An absolute IG <0.1 is reported as 0.0. Lymph # 4.1(H) 1.2 - 3.9 x10(3)/mcL 06/08/2024 5:09 PM EDT [facility] [place] # 0.8 0.3 - 0.9 x10(3)/[facility] 06/08/2024 5:09 PM EDT [facility] Eos# 0.7(H) 0.0 - 0.5 x10(3)/[facility] 06/08/2024 5:09 PM EDT [facility] Baso # 0.0 0.0 - 0.1 x10(3)/mcL 06/08/2024 5:09 PM EDT [facility] Blood VENOUS BLOOD / Unknown 06/08/2024 10:00 AM EDT 06/08/2024 4:41 PM EDT Wilfredo Forte MD HEMATOLOGY ORDERABLES Final R esult Performing Organization Address [facility] Co de Phone Number [facility] [employer] [address] , [place] [address] * (ABNORMAL) BLOOD UREA NITROGEN (06/08/2024 10:00 AM EDT) BUN 5(L) 8 - 23 mg/dL 06/08/2024 8:47 PM EDT [facility] Blood VENOUS BLOOD / Unknown 06/08/2024 10:00 AM EDT 06/08/2024 4:41 PM EDT us Wilfredo Forte MD CHEMISTRY ORDERABLES Final Re sult Performing Organization Address [facility] Co de Phone Number [facility] [employer] [address] , [place] [address] documented in this encounter Visit [...] documented as of this encounter Care Teams Grand Scribe Relationship Specialty [place] [address] [place] [id number] PCP - General 01/19/09 09/14/24 Viridiana Oropeza MD [address] [place] [address] PCP - General Family Medicine 09/23/24 Pankaj Navarro MD [address] [place] [id number] Physician Otolaryngology 09/18/23 documented as of this encounter
--- OUTSIDE RECORDS SUMMARY | 2024-09-25 12:44 | XMS_ITS | Encounter Summary ---
Author Organization [place] [address] Care Team Providers Care Director Graphics Name Role Phone Pankaj Navarro MD Unavailable [phone] Reason for Visit * Reason Onset Date Comments Central Patient Navigator Outreach 09/15/2024 AWV Questionnaire Encounter Details Date Type Department Care Team (Late st Contact Info) Description 09/15/2024 Patient Outreach [facility] [address] [place], [place] [id number] Viridiana Oropeza MD [address] [place], [place] [id number] Central Patient Navigator Outreach (AWV Questionnaire) Social History Tobacco Use Types Packs/Day Years Used Date Smoking Tobacco: Never Passive Smoke Exposure: Never Smokeless Tobacco: Never Alcohol Use Standard Drinks/Week Comments No 0 (1 standard drink = 0.6 oz pur e alcohol) [facility] Utilities Answer Date Recorded In the past 12 months has [employer], gas, oil, or water [employer] threatened to shut off services in your home? No 07/22/2024 Overall Financial Resource Strain (CARDIA) Answe r Date Recorded How hard is it for you to pa y for the very basics like food, housing, medical care, and heating? Not hard at all 07/22/2024 PHQ-2 Answer Date Recorded PHQ-2 Total Score 0 07/22/2024 [facility] [place] of Occupat ional Health - Occupational Stress [...] things needed for daily living? No 01/21/2020 [facility] IP Transportation Answer [...] Author No 03/23/2024 10:00 AM EST Tiffany Bladerrama CCMA * Because of a physical, mental [...] Questionnaires Attempt Count: 1st Care Gaps Addressed clinical transformation specialist: Medicare Questionnaire Outcome:pt states does not see [facility] provider for primary care needs--now goes to [facility]--advised to contact ins and removed Dr. Oropeza as primary care provider Call back number: [phone] documented in this encounter Plan of Treatment Not on file documented as of this encounter Goals Goal Patient Goal Type Associated Problems Recent Progress Patient-Stated? Author Blood Pressure < 140/90 Blood Pressure 128/56(2024 9:08 AM EDT) No Julia Chicas, DAVID BMI (Calculated) < 30 General 41.9(07/22/19 9:49 PM EDT) No uJlia Chicas, DAVID Maintain a healthy diet, exercise [...] documented as of this encounter Care Teams Director Graphics Relationship Specialty Start Date End Date Pankaj Navarro MD [address] [place], [place] [id number] Physician Otolaryngology 09/18/23 documented as of this encounter
[2024-09-25] MEDS: SODIUM CHLORIDE 0.9% 10ML SYR (RAD ONLY) 10 ML IV (12:56)
[2024-09-25] MEDS: IOPAMIDOL-370 (76%);100ML BOTTLE 75 ML IV (12:56)
--- NOTE | 2024-09-25 13:00 | CT_ITS ---
FINAL REPORT CLINICAL HISTORY: RT submandular mass BB placed on right side COMPARISON: None FINDINGS: CT NECK WITH CONTRAST TECHNIQUE: Axial CT with IV contrast administration. This study was performed with techniques to keep radiation doses as low as reasonably achievable, (ALARA). Individualized dose reduction techniques using automated exposure control or adjustment of mA and/or kV according to the patient's size were employed. FINDINGS: There is mild enlargement of the right submandibular gland, which is increased in density, and an infiltrative neoplastic process is not excluded, although inflammatory change could also result in increased density. The left submandibular gland and bilateral parotid glands are normal. No significant cervical adenopathy is noted. The nasopharynx, oropharynx, hypopharynx, and larynx are unremarkable. Thyroid gland is unremarkable. There is no abscess. IMPRESSION: 1. Mildly enlarged right submandibular gland with increased density, infiltrative neoplastic process is not excluded although inflammatory change could produce a similar density difference. 2. Recommend ENT consultation for further evaluation. This study was performed using automated techniques to achieve radiation exposure as low as reasonably achievable Reviewed, Interpreted and Dictated by Mechelle Roman MD Transcribed by Joann Kruger Authenticated and [facility]
== END 2024-09-25 23:59 | disposition home or self-care (01) ==
LOC: RAD 12:41
PROVIDERS: PCP Family Medicine; Visit Provider Family Medicine
DX: K11.8 Other diseases of salivary glands (principal)
CPT/HCPCS: 70491; Q9967

== ENCOUNTER 2024-10-13 14:20 | Outpatient (CLI) | payer MEDICARE, MEDICAID, SELFPAY ==
--- OUTSIDE RECORDS SUMMARY | 2018-12-31 14:56 | XMS_ITS | Encounter Summary ---
Author Organization [place] [address] Care Team Providers Care Typewriter Tester Name Role Phone Viridiana Oropeza MD Primary Care Provider Encounter Details Date Type Department Care Team (Latest Contact Info) Description 12/31/2018 1:56 PM [facility] Encounter [facility] Referral Lab 1 [place] [address] Fahad Kennedy MD [address] [place] [address] Pain in right hip Social History Tobacco Use Types Packs/Day Years Used Date Smoking Tobacco: Never Passive Smoke Exposure: Never Smokeless Tobacco: Never Alcohol Use Standard Drinks/Week Comments No 0 (1 standard drink = 0.6 oz pur e alcohol) [facility] Utilities Answer Date Recorded In the past 12 months has [employer] electric, gas, oil, or water company threatened to shut off services in your home? No 07/22/2024 Overall Financial Resource Strain (CARDIA) Answe r Date Recorded How hard is it for you to pa y for the very basics like food, housing, medical care, and heating? Not hard at all 07/22/2024 PHQ-2 Answer Date Recorded PHQ-2 Total Score 0 07/22/2024 [facility] [place] of Occupat ional Health - Occupational Stress [...] things needed for daily living? No 01/21/2020 [facility] IP Transportation Answer D ate Recorded In [...] 4:08 PM EDT Genesis Dumont RN * [place] Suicide Severity Rating Scale (Q shift for [...] Component 6.4( 11:37 AM EDT) No Julia Chicsa, DAVID documented as of this encounter Visit Diagnoses Diagnosis Pain in right hip Pain in joint, pelvic region and thigh documented in this encounter Additional Health Concerns Infection Onset Date Last Indicated Resolved Time R/O C-Diff 07/22/2024 07/22/2024 07/22/2024 1:25 PM EDT C-diff 07/22/2024 07/22/2024 documented as of this encounter Care Teams Typewriter Tester Relationship Specialty Start Date End Date Viridiana Oropeza MD [address] [place] [address] PCP - General 01/19/09 09/14/24 documented as of this encounter
--- OUTSIDE RECORDS SUMMARY | 2024-10-13 14:23 | XMS_ITS | Clinical Summary ---
Author Organization [facility] Address [address] [place] [address] Phone Care Team Providers Care Data Warehousing Manager Name Role Phone Pankaj Navarro MD Unavailable [phone] Viridiana Oropeza MD Primary Care Provider [phone] Allergies Active Allergy Reactions Criticality Noted Date [...] migh t be different from the original. Pharmacy:[id number] [place] [address] [phone] [phone] Controlled Contract Updated / Signed 08/17/2022- [place] [...] Type Department Care Team Description 09/22/2024 Telephone [facility] [address] [place], [place] [id number] Johnathan Parrish MD Relaying Information (FAX) 09/15/2024 Patient Outreach SEP [facility] [address] [place] [address] Viridiana Oropeza MD Central Patient Navigator Outreach (AWV Questionnaire) 08/07/2024 Telephone [facility] [address] [place], [place] [phone] Viridiana Oropeza MD Refill (Oxycodone - refill ) 07/30/2024 Patient Outreach [facility] [address] Appointment [place] [address] Wen Ayers, DAVID CM- Telephonic Outreach; Hospital Follow Up 07/28/2024 Patient Outreach [facility] [address] Appointment [place] [address] Lexis Kahn RN Hospital Follow Up 07/21/2024 4:39 PM EDT - 07/26/2024 4:06 PM EDT Hospital Encounter EDG 2[address] [place], [place] [id number] Cat Jules MD Buchanan, Jamie L, ZAC (acute kidney injury) (Primary Dx); Pancolitis (HCC) Discharge Disposition: Home or Self Care 07/21/2024 Travel from Last 3 Months Immunizations Immunization [...] COLONOSCOPY ; Surgeon: Pankaj Chavez MD; Location: [facility]; Service: Endoscopy HIP SURGERY 02/11/1995 [...] Date Recorded PHQ-2 Total Score 0 07/22/2024 [facility] [place] of Occupat ional Health - Occupational Stress [...] things needed for daily living? No 01/21/2020 [facility] IP Transportation Answer D ate [...] Chicas, DAVID Medical Devices Implanted Type Area Popcorn Vendor Device Identifier Shelf Expiration Date Model / [...] - 100 mg/dL 07/26/2024 11:21 AM EDT [facility] Sample Type Capillary 07/26/2024 11:21 AM EDT [facility] Patient Status Non-Critical Patient 07/26/2024 11:21 AM EDT [facility] Blood BLOOD SPECIMEN / Unknown 07/26/2024 11:20 AM EDT 07/26/2024 11:21 AM EDT Anil Thompson DO POINT OF CARE TEST ORDERABLE S Final Result Performing Organization Address City/[facility]/ZIP Co de Phone Number [facility] [address] [place] [address] * ECG AND WAVEFORMS - TELEMETRY (07/26/2024 7:58 AM EDT) Only the most recent of8 resultswithin the time period is included. [facility] ECG INTERPRET Sinus with IVCD [facility] 07/26/2024 7:58 AM EDT Narrative [facility] - 07/26/2024 8:03 AM EDT EH - ROUTINE [place] 0.20 QRS 0.11 RR 0.88 QT 0.37 QTc 0.39 See Clinical Report link for waveform capture us Unknown Provider POINT OF CARE CARDIOLOGY Final Result [facility] [address] [place] [address] * (ABNORMAL) CBC WITH DIFF (07/26/2024 6:09 AM EDT) Only the most recent of5 resultswithin the time period is included. WBC 11.0(H) 3.7 - 10.3 x10(3)/mcL 07/26/2024 7:44 AM EDT [facility] RBC 3.50(L) 4.60 - 6.10 x10(6)/mcL 07/26/2024 [...] 7:44 AM EDT [facility] [place] Percent 6.1 % 07/26/2024 7:44 AM EDT [...] 0.1 x10(3)/mcL 07/26/2024 7:44 AM EDT [facility] Comment:Automated count of m etamyelocytes, myelocytes and promyelocytes. An absolute IG <0.1 is reported as 0.0. Lymph # 4.9(H) 1.2 - 3.9 x10(3)/mcL 07/26/2024 7:44 AM EDT [facility] [place] # 0.7 0.3 - 0.9 x10(3)/[facility] 07/26/2024 7:44 AM EDT [facility] Eos# 0.5 0.0 - 0.5 x10(3)/[facility] 07/26/2024 7:44 AM EDT [facility] Baso # 0.0 0.0 - 0.1 x10(3)/[facility] 07/26/2024 7:44 AM EDT [facility] Blood VENOUS BLOOD / Unknown Venipuncture / Unknown 07/26/2024 6:09 AM EDT 07/26/2024 7:29 AM EDT us Anil Thompson DO HEMATOLOGY ORDERABLES Final Result [facility] [address] [facility] , [address] [place] [phone] * EC ECHOCARDIOGRAM LIMITED (07/25/2024 2:20 PM [...] is not well visualized. Narrative Procedure Note RandyEma Faisal, DO - 07/26/2024 IMPRESSION Conclusions * Left [...] recommended by the National Kidney Foundation - [place] [employer] of Nephrology Task Force. Blood VENOUS BLOOD / Unknown Venipuncture / Unknown 07/25/2024 6:23 AM EDT 07/25/2024 7:43 AM EDT Anil Thompson DO CHEMISTRY ORDERABLES Final R esult Performing Organization Address [facility] de Phone Number [facility] [address] , [address] [place] [phone] * BLOOD CULTURE (NO STAIN) (07/23/2024 8:10 AM EDT) Only the most recent of4 resultswithin the time period is included. Culture Result No Growth at 120 hours. BLOOD CULTURE (NO STAIN) 07/28/2024 9:00 AM EDT [facility] [employer] Blood VENOUS BLOOD / Unknown Venipuncture / Unknown 07/23/2024 8:10 AM EDT 07/23/2024 8:20 AM EDT Chapo Calvin MD MICROBIOLOGY - GENERAL ORDER ARJUN Final Result Performing Organization Address [facility] de Phone Number [facility] , [place] [address] * (ABNORMAL) SEDIMENTATION RATE AUTOMATED (07/23/2024 8:10 AM EDT) Only the most recent of2 resultswithin the time period is included. Sed Rate 39(H) 0 - 20 mm/hr 07/23/2024 9:28 AM EDT [facility] Blood VENOUS BLOOD / Unknown Venipuncture / Unknown 07/23/2024 8:10 AM EDT 07/23/2024 8:21 AM EDT Chapo Calvin MD HEMATOLOGY ORDERABLES Final Result Performing Organization Address [facility]/ZIP Co de Phone Number [facility] [address] , [address] [place] [phone] * (ABNORMAL) C-REACTIVE PROTEIN (07/23/2024 8:10 AM EDT) Only the most recent of2 resultswithin the time period is included. CRP 94.55(H) <=5.00 mg/L 07/23/2024 12:34 PM EDT [facility] Blood VENOUS BLOOD / Unknown Venipuncture / Unknown 07/23/2024 8:10 AM EDT 07/23/2024 8:21 AM EDT Chapo Calvin MD CHEMISTRY ORDERABLES Final R esult Performing Organization Address [facility] de Phone Number [facility] [employer] , [place] [address] * (ABNORMAL) CREATINE KINASE (07/23/2024 8:10 AM EDT) CK 13(L) 39 - 308 U/L 07/23/2024 12:34 PM EDT [facility] Blood VENOUS BLOOD / Unknown Venipuncture / Unknown 07/23/2024 8:10 AM EDT 07/23/2024 8:21 AM EDT Chapo Calvin MD CHEMISTRY ORDERABLES Final R esult Performing Organization Address City/[facility] Co de Phone Number [facility] [employer] , [place] [address] * (ABNORMAL) COMPREHENSIVE METABOLIC PANEL (07/23/2024 8:10 AM EDT) Only the most recent of2 resultswithin the time period is included. Sodium 138 136 - 145 mmol/L 07/23/2024 9:14 AM EDT [facility] Potassium 4.3 3.5 - 5.0 mmol/L 07/23/2024 9:14 AM EDT [facility] Chloride 109(H) 98 - 107 mmol/L 07/23/2024 9:14 AM EDT [facility] Total CO2 20(L) 22 - 29 mmol/L 07/23/2024 9:14 AM EDT [facility] Anion Gap 9 7 - 16 mmol/L 07/23/2024 9:14 AM EDT [facility] Calcium 8.8 8.8 - 10.4 mg/dL 07/23/2024 9:14 AM EDT [facility] Glucose Lvl 99 70 - 99 mg/dL 07/23/2024 9:14 AM EDT [facility] BUN 18 8 - 23 mg/dL 07/23/2024 9:14 AM EDT [facility] Creatinine 1.67(H) 0.67 - 1.30 mg/dL 07/23/2024 9:14 AM EDT [facility] Albumin 3.1(L) 3.2 - 4.6 gm/dL 07/23/2024 9:14 AM EDT [facility] Total Protein 5.7(L) 6.4 - 8.3 gm/dL 07/23/2024 9:14 AM EDT [facility] Bili Total 0.2 0.2 - 1.4 mg/dL 07/23/2024 9:14 AM EDT [facility] ALT 6 <=41 U/L 07/23/2024 9:14 AM EDT [facility] AST 10 <=40 U/L 07/23/2024 9:14 AM EDT [facility] Alk Phos 82 40 - 129 U/L 07/23/2024 9:14 AM EDT [facility] eGFR (CKD-EPIcr 2020) 45(L) >=60 mL/min/1.7 3 m2 07/23/2024 9:14 AM EDT [facility] Comment:Estimated GFR was ca lculated using the CKD-EPIcr (2020) equation refit without race. The equation is recommended by the National Kidney Foundation - [place] [employer] of Nephrology Task Force. Blood VENOUS BLOOD / Unknown Venipuncture / Unknown 07/23/2024 8:10 AM EDT 07/23/2024 8:21 AM EDT Chapo Calvin MD CHEMISTRY ORDERABLES Final R esult Performing Organization Address City/[facility]/ZIP Co de Phone Number [facility], [address] , [address] [place] [phone] * (ABNORMAL) C DIFF INTERPRETATION (07/22/2024 12:04 PM EDT) C Diff Toxin DNA Positive(A) Negative 07/22/2024 1:41 PM EDT [facility] NAP1 Presumptive Neg Presumptive Neg 07/22/2024 1:41 PM EDT [facility] GDH Antigen Positive(A) Negative 07/22/2024 1:41 PM EDT [facility] C diff toxin A/B Positive(A) Negative 07/22/2024 1:41 PM EDT [facility] Stool RECTUM STRUCTURE / Unknown 07/22/2024 12:04 PM EDT 07/22/2024 12:11 PM EDT Narrative [facility] - 07/22/2024 1:41 PM EDT Toxin producing C diff target DNA sequences detected. Toxins A/B positive. CDI likely. Consider initiation of severity-based CDI therapy according to CDI management guidance. Anil Thompson DO MICROBIOLOGY - GENERAL ORDER ARJUN Final Result Performing Organization Address [facility] Co de Phone Number [facility], [address] , [place] [address] * C DIFF GDH AG AND TOXIN A+B (07/22/2024 12:04 PM EDT) Stool RECTUM STRUCTURE / Unknown 07/22/2024 12:04 PM EDT 07/22/2024 12:11 PM EDT Anil Thompson DO MICROBIOLOGY - GENERAL ORDER ARJUN Final Result Performing Organization Address City/[facility] Co de Phone Number [facility], [address] , [place] [address] * C DIFF TOXIN DNA (07/22/2024 12:04 PM EDT) Stool RECTUM STRUCTURE / Unknown 07/22/2024 12:04 PM EDT 07/22/2024 12:11 PM EDT Anil Thompson DO MICROBIOLOGY - GENERAL ORDER ARJUN Final Result Performing Organization Address City/[facility]/ZIP Co de Phone Number [facility] [employer] [address] [facility] [place] [phone] * SHIGA TOXIN (07/22/2024 12:04 PM EDT) Shiga Toxin Shiga toxins (produced by E. coli) not detected. Shiga toxins (produced by E. coli) not detected. 07/23/2024 5:08 PM EDT [facility] Stool RECTUM STRUCTURE / Unknown 07/22/2024 12:04 PM EDT 07/22/2024 9:23 PM EDT Anil Thompson DO MICROBIOLOGY - GENERAL ORDER ARJUN Final Result Performing Organization Address City/[facility]/ZIP Co de Phone Number [facility] [address] [facility] [place] [address] * STOOL CULTURE (NO STAIN) (07/22/2024 12:04 PM EDT) Culture No growth of enteric pathogens, including Salmonella, Shigella, Campylobacter, Vibrio, Yersinia, Aeromonas, Plesiomonas, or E. coli O157. 07/24/2024 7:50 AM EDT [facility] Stool RECTUM STRUCTURE / Unknown 07/22/2024 12:04 PM EDT 07/22/2024 12:11 PM EDT Anil Thompson DO MICROBIOLOGY - GENERAL ORDER ARJUN Final Result Performing Organization Address City/[facility]/ZIP Co de Phone Number [facility] [address] [facility] [address] * OVA AND PARASITE BASIC (07/22/2024 12:04 PM EDT) Giardia Lamblia Antigen Not Detected Not detected 07/22/2024 6:39 PM EDT [facility] Cryptosporidium Exam Not Detected Not Detected 07/22/2024 6:39 PM EDT [facility] [employer] Stool RECTUM STRUCTURE / Unknown 07/22/2024 12:04 PM EDT 07/22/2024 12:11 PM EDT us Anil Thompson DO MICROBIOLOGY - GENERAL ORDER ARJUN Final Result [facility] [address] [facility] , [place] [address] * US RENAL AND BLADDER (07/22/2024 10:53 [...] evaluation of the kidneys and bladder with medical claims representative images and sharepoint architect notes sent to PACS for radiologist review. [...] sonographic evaluation of the kidneys andbladder with medical claims representative images and sharepoint architect notes sent to PACS forradiologist review. FINDINGS: [...] 07/22/2024 6:40 AM EDT [facility] RDW 15.6(H) <=14.9 % 07/22/2024 6:40 AM EDT [facility] Platelet 266 155 - 369 x10(3)/mcL 07/22/2024 6:40 AM EDT [facility] MPV 9.9 8.8 - 12.5 fL 07/22/2024 6:40 AM EDT [facility] Blood VENOUS BLOOD / Unknown Venipuncture / Unknown 07/22/2024 4:45 AM EDT 07/22/2024 5:07 AM EDT Nury Mcdermott APRN HEMATOLOGY ORDERABLES Final R esult Performing Organization Address City/[facility]/ZIP Co de Phone Number [facility], [address] , [place] [address] * VANCOMYCIN LEVEL (07/22/2024 4:45 AM EDT) [facility] Random 14.6 mcg/mL 07/22/2024 5:44 AM EDT [facility] Blood VENOUS BLOOD / Unknown Venipuncture / Unknown 07/22/2024 4:45 AM EDT 07/22/2024 5:07 AM EDT Cat Jules MD CHEMISTRY ORDERABLES Final Result Performing Organization Address City/[facility]/ZIP Co de Phone Number [facility] [address] [facility] , [place] [address] * (ABNORMAL) URINALYSIS REFLEX (07/21/2024 6:04 PM EDT) UA Color Yellow 07/21/2024 6:17 PM EDT [facility] UA Appear Clear Clear 07/21/2024 6:17 PM EDT [facility] UA Glucose Negative Negative mg/dL 07/21/2024 6:17 PM EDT [facility] UA Ketones Negative Negative mg/dL 07/21/2024 6:17 PM EDT [facility] UA Blood Negative Negative 07/21/2024 6:17 PM EDT [facility] UA pH 6.0 5.0 - 8.0 pH 07/21/2024 6:17 PM EDT [facility] UA Protein 1+ (30-70 mg/dL)(A) Negative mg/dL 07/21/2024 6:17 PM EDT [facility] UA Urobilinogen Normal <=1 mg/dL 6:17 PM [...] 07/21/2024 6:17 PM EDT [facility] Comment:Reference range leyla d for random [...] ORDERABLES Final Res ult [facility] [address] [facility] , [place] [address] * EXTRA BE URINE CX (07/21/2024 6:04 PM EDT) Urine STRUCTURE OF URINARY TRACT PROPER / Unknown 07/21/2024 6:04 PM EDT 07/21/2024 6:09 PM EDT Cat Jules MD MICROBIOLOGY - GENERAL ORD ERABLES Final Result [place] [id number] * URINE CULTURE (NO STAIN) (07/21/2024 6:04 PM EDT) Culture Multiple bacterial species isolated from urine consistent with urogenital commensal organisms. 07/23/2024 3:11 AM EDT [facility] Urine STRUCTURE OF URINARY TRACT PROPER / Unknown 07/21/2024 6:04 PM EDT 07/21/2024 6:17 PM EDT Cat Jules MD MICROBIOLOGY - GENERAL ORD ERABLES Final Result Performing Organization Address City/[facility]/ZIP Co de Phone Number [facility] [address] [facility], [place] [address] * (ABNORMAL) PROCALCITONIN (07/21/2024 5:42 PM EDT) Procalcitonin 0.50(H) <=0.49 ng/mL 07/21/2024 6:35 PM EDT [facility] Blood VENOUS BLOOD / Unknown Venipuncture / Unknown 07/21/2024 5:42 PM EDT 07/21/2024 5:51 PM EDT Narrative [facility] - 07/21/2024 6:35 PM EDT Procalcitonin <0.50 [...] CHEMISTRY ORDERABLES Final Result Performing Organization Address [facility] Co de Phone Number [facility] [address] [facility], [place] [address] * LACTIC ACID (07/21/2024 5:42 PM EDT) Lactic Acid 1.2 0.5 - 1.9 mmol/L 07/21/2024 5:59 PM EDT [facility] Blood VENOUS BLOOD / Unknown Venipuncture / Unknown 07/21/2024 5:42 PM EDT 07/21/2024 5:45 PM EDT Cat Jules MD CHEMISTRY ORDERABLES Final Result Performing Organization Address [facility] de Phone Number [address] [address] * XR CHEST AP PORTABLE (07/21/2024 [...] the ordering clinician. us Cat Jules MD IM CT ORDERABLES Final Re sult * CT [...] of the ordering clinician. Cat Jules MD IM CT ORDERABLES Final Re sult * (ABNORMAL) BLOOD CULTURE RAGHAV GRAM POS (07/21/2024 4:58 PM EDT) BACILLUS CEREUS GROUP Not Detected Not Detected 07/22/2024 6:26 PM EDT [facility] BACILLUS SUBTILIS GROUP Not Detected Not Detected 07/22/2024 6:26 PM EDT [facility] CORYNEBACTERIUM SPECIES Not Detected Not Detected 07/22/2024 6:26 PM EDT [facility] ENTEROCOCCUS SPECIES Not Detected Not Detected [...] ORD ERABLES Final Result Performing Organization Address City/[facility]/ZIP Co de Phone Number [facility] [address] , [address] [place] [phone] * (ABNORMAL) HEMOGLOBIN A1C (04/28/2024 11:37 AM EDT) Hgb A1C 6.4(H) 4.2 - 5.6 % 04/28/2024 10:06 PM EDT [facility] Est. Avg Glucose 137 mg/dL 04/28/2024 10:06 PM EDT [facility] Blood VENOUS BLOOD / Unknown Venipuncture / Unknown 04/28/2024 11:37 AM EDT 04/28/2024 11:37 AM EDT Narrative [facility] - 04/28/2024 10:06 PM EDT REFERENCE [...] ORDERABLES Final Resu lt Performing Organization Address City/[facility]/ZIP Co de Phone Number [facility] [address] , [place] [address] [facility] [address] [place] [address] * (ABNORMAL) LIPID SCREEN (01/06/2024 11:42 AM EST) Cholesterol 141 <200 mg/dL 01/06/2024 4:22 PM EST [facility] Comment: < 200 Desirable 200 - 239 Borderline High >= 240 High Triglyceride 179(H) <150 mg/dL 01/06/2024 4:22 PM EST [facility] Comment: < 150 Normal 150 - 199 Borderline High 200 - 499 High >= 500 Very High HDL 34(L) >=40 mg/dL 01/06/2024 4:22 PM EST [facility] Comment: > 60 Optimal 40 - 60 Acceptable < 40 Low LDL Calculated 76 <100 mg/dL 01/06/2024 4:22 PM EST [facility] Comment: < 100 Optimal 100 - 129 Near or above optimal 130 - 159 Borderline High 160 - 189 High >= 190 Very High Non-HDL-C Calculated 107 <=129 mg/dL 01/06/2024 4:22 PM EST [facility] Comment: <130 Desirable 130-159 Above Desirable 160-189 Borderline High 190-219 High >= 220 Very High Fasting Specimen? Yes None 024 4:22 PM EST [facility] Blood VENOUS BLOOD / Unknown Venipuncture / Unknown 01/06/2024 11:42 AM EST 01/06/2024 11:42 AM EST Viridiana Oropeza MD CHEMISTRY ORDERABLES Final Resu lt Performing Organization Address City/[facility]/ZIP Co de Phone Number [facility] [address] [facility], [place] [address] [facility] [address] [place] [address] * MICROALBUMIN/CREATININE RATIO URINE (06/26/2023 2:30 PM EDT) Urine Microalb 27.3 mg/L 06/26/2023 10:34 PM EDT [facility] Urine Creatinine 189.4 mg/dL 06/26/2023 10:34 PM EDT [facility] Ur Microalb/Creat 14 0 - 30 mg/g 06/26/2023 10:34 PM EDT [facility] Urine URINE SPECIMEN COLLECTION / Unknown 06/26/2023 2:30 PM EDT 06/26/2023 2:30 PM EDT Viridiana Oropeza MD URINE ORDERABLES Final Result [facility] [address] [facility], [place] [address] * DIABETES EYE EXAM (11/19/2017) Left Diabetic Retinopathy Not Present Present/Not Present SEP OFFICE Right Diabetic Retinopathy Not Present Present/Not Present SEP OFFICE us Viridiana Oropeza MD HEALTH MAINTENANCE Final Result Performing Organization Address [facility] de Phone Number SEP OFFICE * GMED COLONOSCOPY (06/16/2015 10:15 AM EDT) 06/16/2015 10:1 5 AM EDT Impressions [facility] - 06/16/2015 11:43 AM EDT Grade 1 internal hemorrhoids. Normal mucosa in the whole colon. Plan: Screening Colonoscopy in 10 years. This section is an excerpt of the full report. Pankaj Chavez MD GI PROCEDURE ORDERABLES Jaimee l Result Performing Organization Address [facility] de Phone Number [facility] [address] [place] [address] * HEPATITIS C ANTIBODY IGM + IGG (01/24/2011 10:10 AM EST) Hep C Ab Negative Negative [facility] Blood specimen (specimen) VENOUS STRUCTURE / Unknown 01/24/2011 10:10 AM EST 01/24/2011 10:21 AM EST Nereida Valle MD IMMUNOLOGY ORDERABLES Fin al Result Performing Organization Address [facility] de Phone Number [facility] [address] [place] [address] from Last 3 Months or Most Recently Relevant to Health Maintenance Additional Health Concerns Infection Onset Date Last Indicated C-diff 07/22/2024 07/22/2024 Insurance [facility] [id number] [facility] MEDIC[facility] PART B [facility] [id number] [facility] [place] [place] [address] [place]IC[place] [facility] [place] [address] [place] MEDICARE PART [place] [facility] [address] MDR MEDICARE PART B [facility] [place] [address] MDR Advance Directives For more information, please contact: [phone] * Full Code (Latest Code Status on File) Date Activated Date Inactivated Comments 07/21/2024 8:09 PM 07/26/2024 8:11 PM * Full Code Date Activated Date Inactivated Comments 08/28/2023 10:07 PM 09/03/2023 5:46 PM Care Teams Data Warehousing Manager Relationship Specialty Start [place] [address] [place] [id number] PCP - General Family Medicine 09/23/24 Pankaj Navarro MD [address] [place] [id number] Physician Otolaryngology 09/18/23
--- OUTSIDE RECORDS SUMMARY | 2024-10-13 14:24 | XMS_ITS | Encounter Summary ---
Author Organization [facility] Address [address] [id number] Care Team Providers Care Court Bailiff Or Sheriff Name Role Phone Viridiana Oropeza MD Primary Care Provider [phone] Gerardo Mcbride Unavailable [phone] Reason for Referral * Consultation (Routine) - Closed Specialty Diagnoses / Procedures Referred By Contac t Referred To Contact Orthopaedic Surgery Diagnoses Pain in right hip Pain in left hip Cristobal Rosales PA [address] [employer] [place] [address] Phone: tel: fax: Alejandro Rojas MD [address] [facility] [address] [place] [address] Phone: tel: fax: Referral ID Status Reason Start Date Expiration Date V isits Requested Visits Authorized [id number] Closed Specialty Services Required 03/08/2022 09/07/2023 1 1 Encounter Details Date Type Department Care Team (Late st Contact Info) Description 03/08/2022 Community Orders Community Practice [address] [place] [address] Cristobal Rosales PA [address] [employer] [place] [address] Pain in right hip (Primary [...] documented as of this encounter Care Teams Court Bailiff Or Sheriff Relationship Specialty Start Date End Date Viridiana Oropeza MD [address] [place] [address] PCP - General 03/13/22 Gerardo Mcbride [address] [place] [address] 08/23/23 documented as of this encounter
--- OUTSIDE RECORDS SUMMARY | 2024-10-13 14:24 | XMS_ITS | Encounter Summary ---
Author Organization [place] [address] Care Team Providers Care Broadloom Weaver Name Role Phone Pankaj Navarro MD Unavailable Viridiana Oropeza MD Primary Care Provider [phone] Reason for Visit * Reason Onset Date Comments Relaying Information 09/22/2024 FAX Encounter Details Date Type Department Care Team (Late st Contact Info) Description 09/22/2024 Telephone [facility] [address] [place] [address] Johnathan Parrish MD [address] [place] [address] Relaying Information (FAX) Social History Tobacco Use Types Packs/Day Years Used Date Smoking Tobacco: Never Passive Smoke Exposure: Never Smokeless Tobacco: Never Alcohol Use Standard Drinks/Week Comments No 0 (1 standard drink = 0.6 oz pur e alcohol) [facility] Utilities Answer Date Recorded In the past 12 months has [employer], gas, oil, or water [employer] threatened to shut off services in your home? No 07/22/2024 Overall Financial Resource Strain (CARDIA) Answe r Date Recorded How hard is it for you to pa y for the very basics like food, housing, medical care, and heating? Not hard at all 07/22/2024 PHQ-2 Answer Date Recorded PHQ-2 Total Score 0 07/22/2024 [facility] [place] of Occupat ional Health - Occupational Stress [...] things needed for daily living? No 01/21/2020 [facility] IP Transportation Answer D ate Recorded In [...] is Calling: Insurance Company/Law Office Lenore w/ [employer] regarding CMS (include office companyand caller's name) [...] documented as of this encounter Care Teams Broadloom Weaver Relationship Specialty Start Date End Date Viridiana Oropeza MD [address] [place] [address] PCP - General Family Medicine 09/23/24 Pankaj Navarro MD [address] [place] [address] Physician Otolaryngology 09/18/23 documented as of this encounter
--- OUTSIDE RECORDS SUMMARY | 2024-10-13 14:24 | XMS_ITS | Encounter Summary ---
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 No 08/29/2023 Overall Financial Resource Strain (CARDIA) Answe r Date Recorded How hard is it for you to pa y for the very basics like food, housing, medical care, and heating? Not hard at all 08/29/2023 PHQ-2 Answer Date Recorded PHQ-2 Total Score 0 03/23/2024 [facility] [place] of Occupat ional Health - Occupational Stress [...] things needed for daily living? No 01/21/2020 [facility] IP Transportation Answer D ate Recorded In [...] Final Re sult Performing Organization Address [facility] [place] [address] * CREATININE (06/02/2024 10:00 AM EDT) Creatinine 1.13 0.67 - 1.30 mg/dL 06/02/2024 6:27 PM EDT [facility] eGFR (CKD-EPIcr 2020) 71 >=60 mL/min/1.7 3 m2 06/02/2024 6:27 PM EDT [facility] Comment:Estimated GFR was ca lculated using the CKD-EPIcr (2020) equation refit without race. The equation is recommended by the National Kidney Foundation - [place] [employer] of Nephrology Task Force. Blood VENOUS BLOOD / Unknown 06/02/2024 10:00 AM EDT 06/02/2024 2:43 PM EDT us Wilfredo Forte MD CHEMISTRY ORDERABLES Final Re sult Performing Organization Address [facility] Co de Phone Number [facility] [address] [place] [address], [place] [address] * (ABNORMAL) C-REACTIVE PROTEIN (06/02/2024 10:00 AM EDT) CRP 26.44(H) <=5.00 mg/L 06/02/2024 6:27 PM EDT [facility] Blood VENOUS BLOOD / Unknown 06/02/2024 10:00 AM EDT 06/02/2024 2:43 PM EDT Wilfredo Forte MD CHEMISTRY ORDERABLES Final Re sult Performing Organization Address City/[facility]/ZIP Co de Phone Number [facility], [facility] [address] [facility] , [place] [address] * (ABNORMAL) HEPATIC FUNCTION PANEL [...] ORDERABLES Final Re sult [facility], [facility] [address] [facility] , [place] [address] * (ABNORMAL) CBC WITH DIFF [...] 3:23 PM EDT [facility] [place] Percent 9.8 % 06/02/2024 3:23 PM EDT [...] x10(3)/mcL 06/02/2024 3:23 PM EDT [facility], [facility] Comment:Automated count of m etamyelocytes, myelocytes and promyelocytes. An absolute IG <0.1 is reported as 0.0. Lymph # 3.3 1.2 - 3.9 x10(3)/[facility] 06/02/2024 3:23 PM EDT [facility], [facility] [place] # 0.8 0.3 - 0.9 x10(3)/[facility] 06/02/2024 3:23 PM EDT [facility], [facility] Eos# 0.8(H) 0.0 - 0.5 x10(3)/[facility] 06/02/2024 3:23 PM EDT [facility], [facility] Baso # 0.0 0.0 - 0.1 x10(3)/[facility] 06/02/2024 3:23 PM EDT [facility], [facility] Blood VENOUS BLOOD / Unknown 06/02/2024 10:00 AM EDT 06/02/2024 2:43 PM EDT Wilfredo Forte MD HEMATOLOGY ORDERABLES Final R esult Performing Organization Address [facility] Co de Phone Number [facility] [employer], [facility] [address] [facility] , [place] [address] * (ABNORMAL) BLOOD UREA NITROGEN (06/02/2024 10:00 AM EDT) BUN 6(L) 8 - 23 mg/dL 06/02/2024 6:27 PM EDT [facility], [facility] Blood VENOUS BLOOD / Unknown 06/02/2024 10:00 AM EDT 06/02/2024 2:43 PM EDT Wilfredo Forte MD CHEMISTRY ORDERABLES Final Re sult Performing Organization Address [facility] Co de Phone Number [facility], [facility] [address] [facility] , [place] [address] documented in this encounter Visit [...] documented as of this encounter Care Teams Manufacturing Tech Relationship Specialty Start Date End Date Viridiana Oropeza MD [address] [place] [address] PCP - General 01/19/09 09/14/24 Viridiana rOopeza MD [address] [place] [address] PCP - General Family Medicine 09/23/24 Pankaj Navarro MD [address] [place] [address] Physician Otolaryngology 09/18/23 documented as of this encounter
--- OUTSIDE RECORDS SUMMARY | 2024-10-13 14:24 | XMS_ITS | Encounter Summary ---
Author Organization [place] [address] Care Team Providers Care Chair Trimmer Name Role Phone Viridiana Oropeza MD Primary Care Provider [phone] Pankaj Navarro MD Unavailable [phone] Viridiana Oropeza MD Primary Care Provider [phone] Encounter Details Date Type Department Care Team (Late st Contact Info) Description 06/08/2024 Lab Requisition [facility] [place] [address] Wilfredo Forte MD Infection following a procedure, superficial incisional surgical site, subsequent encounter Social History Tobacco Use Types Packs/Day Years Used Date Smoking Tobacco: Never Passive Smoke Exposure: Never Smokeless Tobacco: Never Alcohol Use Standard Drinks/Week Comments No 0 (1 standard drink = 0.6 oz pur e alcohol) [facility] Utilities Answer Date Recorded In the past 12 months has [employer] electric, gas, oil, or water company threatened to shut off services in your home? No 08/29/2023 Overall Financial Resource Strain (CARDIA) Answe r Date Recorded How hard is it for you to pa y for the very basics like food, housing, medical care, and heating? Not hard at all 08/29/2023 PHQ-2 Answer Date Recorded PHQ-2 Total Score 0 03/23/2024 [facility] [place] of Occupat ional Health - Occupational Stress [...] things needed for daily living? No 01/21/2020 [facility] IP Transportation Answer D ate Recorded In [...] ORDERABLES Final Re sult Performing Organization Address City/[facility]/ZIP Co de Phone Number [facility], [address] , [place] [address] * (ABNORMAL) HEPATIC FUNCTION PANEL (06/08/2024 10:00 AM EDT) Pathologist [facility] Total Protein 6.0(L) 6.4 - 8.3 gm/dL [...] ORDERABLES Final Re sult Performing Organization Address City/[facility]/ZIP Co de Phone Number [facility], [facility] [address] [facility] , [place] [address] * CREATININE (06/08/2024 10:00 AM EDT) Creatinine 1.06 0.67 - 1.30 mg/dL 06/08/2024 8:47 PM EDT [facility], [facility] eGFR (CKD-EPIcr 2020) 77 >=60 mL/min/1.7 3 m2 06/08/2024 8:47 PM EDT [facility], [facility] Comment:Estimated GFR was ca lculated using the CKD-EPIcr (2020) equation refit without race. The equation is recommended by the National Kidney Foundation - [place] Society of Nephrology Task Force. Blood VENOUS BLOOD / Unknown 06/08/2024 10:00 AM EDT 06/08/2024 4:41 PM EDT us Wilfredo Forte MD CHEMISTRY ORDERABLES Final Re sult [facility], [facility] [address] [facility] , [place] [address] * (ABNORMAL) CBC WITH DIFF (06/08/2024 10:00 AM EDT) WBC 9.0 3.7 - 10.3 x10(3)/mcL 06/08/2024 5:09 PM EDT [facility] RBC 2.89(L) 4.60 - 6.10 x10(6)/mcL 06/08/2024 5:09 PM EDT [facility], [facility] Hgb 8.3(L) 13.7 - 17.5 g/dL 06/08/2024 5:09 PM EDT [facility] Hct 28.3(L) 40.0 - 51.0 % 06/08/2024 5:09 PM EDT [facility] MCV 97.9 80.0 - 100.0 fL 06/08/2024 5:09 PM EDT [facility] MCH 28.7 26.0 - 34.0 pg 06/08/2024 5:09 PM EDT [facility] MCHC 29.3(L) 30.7 - 35.5 g/dL 06/08/2024 5:09 PM EDT [facility], [facility] RDW 15.2(H) <=14.9 % 06/08/2024 5:09 PM EDT [facility], [facility] Platelet 294 155 - 369 x10(3)/[facility] 06/08/2024 5:09 PM EDT [facility], [facility] MPV 10.8 8.8 - 12.5 fL 06/08/2024 5:09 PM EDT [facility], [facility] Neut Percent 37.7 % 06/08/2024 5:09 PM EDT [facility], [facility] Comment:Neutrophils equals s egs plus bands Imm Gran% 0.2 % 06/08/2024 5:09 PM EDT [facility], [facility] Comment:Automated count of m etamyelocytes, myelocytes and promyelocytes. Lymph Percent 45.4 % 06/08/2024 5:09 PM EDT [facility], [facility] [place] Percent 9.0 % 06/08/2024 5:09 PM EDT [facility], [facility] Eos Percent 7.3 % 06/08/2024 5:09 PM EDT [facility], [facility] Baso Percent 0.4 % 06/08/2024 5:09 PM EDT [facility], [facility] Neut # 3.4 1.6 - 6.1 x10(3)/[facility] 06/08/2024 5:[address] [facility], [facility] Comment:Neutrophils equals s egs plus bands IMMGRAN# 0.0 0.0 - 0.1 x10(3)/[facility] 06/08/2024 5:09 PM EDT [facility], [facility] Comment:Automated count of m etamyelocytes, myelocytes and promyelocytes. An absolute IG <0.1 is reported as 0.0. Lymph # 4.1(H) 1.2 - 3.9 x10(3)/mcL 06/08/2024 5:09 PM EDT [facility], [facility] [place] # 0.8 0.3 - 0.9 x10(3)/[facility] 06/08/2024 5:09 PM EDT [facility], [facility] Eos# 0.7(H) 0.0 - 0.5 x10(3)/[facility] 06/08/2024 5:09 PM EDT [facility], [facility] Baso # 0.0 0.0 - 0.1 x10(3)/mcL 06/08/2024 5:[address] [facility] Blood VENOUS BLOOD / Unknown 06/08/2024 10:00 AM EDT 06/08/2024 4:41 PM EDT Wilfredo Forte MD HEMATOLOGY ORDERABLES Final R esult Performing Organization Address [facility] [facility] Co de Phone Number [facility] [employer] [address] , [place] [address] * (ABNORMAL) BLOOD UREA NITROGEN (06/08/2024 10:00 AM EDT) BUN 5(L) 8 - 23 mg/dL 06/08/2024 8:[address] [facility] Blood VENOUS BLOOD / Unknown 06/08/2024 10:00 AM EDT 06/08/2024 4:41 PM EDT us Wilfredo Forte MD CHEMISTRY ORDERABLES Final Re sult Performing Organization Address [facility] Co de Phone Number [facility] [employer] [address] , [place] [address] documented in this encounter Visit [...] documented as of this encounter Care Teams Chair Trimmer Relationship Specialty [place] [address] [place] [address] PCP - General 01/19/09 09/14/24 Viridiana Oropeza MD [address] [place] [address] PCP - General Family Medicine 09/23/24 Pankaj Navarro MD [address] [place] [address] Physician Otolaryngology 09/18/23 documented as of this encounter
--- OUTSIDE RECORDS SUMMARY | 2024-10-13 14:24 | XMS_ITS | Encounter Summary ---
Author Organization [place] [address] Care Team Providers Care Dictating Transcribing Machine Servicer Name Role Phone Pankaj Navarro MD Unavailable [phone] Reason for Visit * Reason Onset Date Comments Central Patient Navigator Outreach 09/15/2024 AWV Questionnaire Encounter Details Date Type Department Care Team (Late st Contact Info) Description 09/15/2024 Patient Outreach SEP [facility] [address] [place], [place] [id number] Viridiana Oropeza MD [address] [place], [place] [id number] Central Patient Navigator Outreach (AWV Questionnaire) Social History Tobacco Use Types Packs/Day Years Used Date Smoking Tobacco: Never Passive Smoke Exposure: Never Smokeless Tobacco: Never Alcohol Use Standard Drinks/Week Comments No 0 (1 standard drink = 0.6 oz pur e alcohol) [facility] Utilities Answer Date Recorded In the past 12 months has [email or web address], gas, oil, or water [employer] threatened to shut off services in your home? No 07/22/2024 Overall Financial Resource Strain (CARDIA) Answe r Date Recorded How hard is it for you to pa y for the very basics like food, housing, medical care, and heating? Not hard at all 07/22/2024 PHQ-2 Answer Date Recorded PHQ-2 Total Score 0 07/22/2024 [facility] [place] of Occupat ional Health - Occupational Stress [...] needed for daily living? No [facility] IP Transportation Answer D ate [...] Questionnaires Attempt Count: 1st Care Gaps Addressed job honer: Medicare Questionnaire Outcome:pt states does not see [facility] provider for primary care needs--now goes to [facility]--advised to contact ins and removed Dr. Oropeza as primary care provider Call back number: [phone] documented in this encounter Plan of Treatment [...] documented as of this encounter Care Teams Dictating Transcribing Machine Servicer Relationship Specialty Start Date End Date Pankaj Navarro MD [address] [place], [place] [id number] Physician Otolaryngology 09/18/23 documented as of this encounter
--- OUTSIDE RECORDS SUMMARY | 2024-10-13 14:24 | XMS_ITS | Clinical Summary ---
Author Organization [facility] Address [address] [place] [address] Care Team Providers Care Structural Shop Helper Name Role Phone Viridiana Oropeza MD Primary Care Provider [phone] ManjeetGerardo pink Unavailable [phone] Allergies Active Allergy Reactions Criticality Noted [...] Type Department Care Team Description 08/05/[address] [address] Roxana Wagoner 07/20/2024 10:30 AM EDT Office Visit [address] [address] Wilfredo Forte MD Infection of prosthetic joint, subsequent encounter (Primary Dx) 07/20/2024 Results Follow-Up [address] [address] Wilfredo Forte MD abnormal labs [...] [facility] [address], [address] [place] [address] Alejandro Rojas MD HCN - [...] answer 05/04/2024 How often do you attend [facility] or alevism services? Patient unable to answer 05/04/2024 Do you belong to any clubs o r organizations such as mandaen groups, unions, fraternal or athletic groups, or [...] Recorded Patient Health Questionnaire-2 Score 0 06/15/2024 [facility]ational Stress Questionnaire Answer [...] any time in the past 12 m [facility], were you homeless or living in a fpc (including now)? No 05/04/2024 Utilities Answer Date Recorded In the past 12 months has th e [employer], gas, oil, or water [employer] threatened to shut off services in your [...] - Risk 60-74 years 1-dose series) 2016 [id number]-46 Vaccine ( season) 2023 03/27/2023, 08/17/2021, 12/20/2020, [...] Wagoner PA Medical Devices Implanted Type Area Service Liaison Representative Device Identifier Shelf Expiration Date Model / Serial / Lot Cement Palacos W/Gent - Sn/A - [id number] Implanted:Qty : 1 on 05/02/2024 by Denis Stevenson MD at [facility] Cement Right: Hip [employer]-[id number] 05/12/2027 [id number] / N/A / [id number] Implant Implant Biljosea l: Hip Liner Ref Xlpe 36 20 Deg 54-56 F - [id number] Implanted:Qty : 1 on 03/26/2024 by Alejandro Rojas MD at [facility] Right: Hip [employer]-[id number] 07/27/2029 [id number] / / [id number] Hip Head Oxi Fm Tpr 36 +8 - [id number] Implanted:Qty : 1 on 03/26/2024 by Alejandro Rojas MD at [facility] Right: Hip [employer]-[id number] 07/01/2032 [id number] / / [id number] Chg Stem Redapt [place] 300mm So Sz21 - [id number] Implanted:Qty : 1 on 05/07/2024 by Alejandro Rojas MD at [facility] Right: Hip [employer]-[id number] 09/06/2031 [id number] / / [id number] Chg Head Oxinium Fem 01/24 28m - [id number] Implanted:Qty : 1 on 05/07/2024 by Alejandro Rojas MD at [facility] Right: Hip [employer]-[id number] 10/27/2033 [id number] / / [id number] Shell Modular Redapt 62mm - [id number] Implanted:Qty : 1 on 05/07/2024 by Alejandro Rojas MD at [facility] Right: Hip [employer]-[id number] 10/21/2032 [id number] / / [id number] Chg Screw Ref Spher Head 25mm - [id number] Implanted:Qty : 1 on 05/07/2024 by Alejandro Rojas MD at [facility] Right: Hip [employer]-[id number] 11/04/2033 [id number] / / [id number] Liner Or3o Dual Mbility 48 62 - [id number] Implanted:Qty : 1 on 05/07/2024 by Alejandro Rojas MD at [facility] Right: Hip [employer]-[id number] 06/24/2032 [id number] / / [id number] Chg Screw Ref Spher Head 25mm - [id number] Implanted:Qty : 1 on 05/07/2024 by Alejandro Rojas MD at [facility] Right: Hip [employer]-[id number] 11/02/2033 [id number] / / [id number] Chg Screw Redapt Lock 15mm - [id number] Implanted:Qty : 1 on 05/07/2024 by Alejandro Rojas MD at [facility] Right: Hip [employer]-[id number] 09/23/2033 [id number] / / [id number] Liner Or3o Dual Mbility Xlpe 28 48 - [id number] Implanted:Qty : 1 on 05/07/2024 by Alejandro Rojas MD at [facility] Right: Hip [employer]-[id number] 01/09/2030 [id number] / / [id number] Procedures Procedure Name Priority Date/Time Associated Diagnosis [...] CBC and Differential (07/20/2024 10:40 AM EDT) [facility] WBC Count 20.96(H) 3.70 - 10.30 10*3/uL LAB HEMATOLOGY METHOD 07/20/2024 2:54 PM EDT [facility] RBC Count 4.16(L) 4.60 - 6.10 10*6/uL LAB HEMATOLOGY METHOD 07/20/2024 2:54 PM EDT [facility] HGB 11.5(L) 13.7 - 17.5 g/dL LAB HEMATOLOGY METHOD 07/20/2024 2:54 PM EDT [facility] HCT 37.3(L) 40.0 - 51.0 % LAB HEMATOLOGY METHOD 07/20/2024 2:54 PM EDT [facility] Platelet Count 316 155 - 369 10*3/uL LAB HEMATOLOGY METHOD 07/20/2024 2:54 PM EDT [facility] MCV 90 79 - 98 fL LAB HEMATOLOGY METHOD 07/20/2024 2:54 PM EDT [facility] MCH 27.6 26.0 - 32.0 pg LAB HEMATOLOGY METHOD 07/20/2024 2:54 PM EDT [facility] MCHC 30.8 30.7 - 35.5 g/dL LAB HEMATOLOGY METHOD 07/20/2024 2:54 PM EDT [facility] RDW 15.5(H) 11.5 - 14.5 % LAB HEMATOLOGY METHOD 07/20/2024 2:54 PM EDT [facility] MPV 9.7 8.8 - 12.5 fL LAB HEMATOLOGY METHOD 07/20/2024 2:54 PM EDT [facility] nRBC 0.0 <=0.0 per 100 WBCs LAB HEMATOLOGY METHOD 07/20/2024 2:54 PM EDT [facility] Differential Type Automated LAB HEMATOLOGY METHOD 07/20/2024 2:54 PM EDT [facility] Neutrophils % 49 % LAB HEMATOLOGY METHOD 07/20/2024 2:54 PM EDT [facility] Lymphocytes % 37 % LAB HEMATOLOGY METHOD 07/20/2024 2:54 PM EDT [facility] Monocytes % 7 % LAB HEMATOLOGY METHOD 07/20/2024 2:54 PM EDT [facility] Eosinophils % 3 % LAB HEMATOLOGY METHOD 07/20/2024 2:54 PM EDT [facility] Basophils % 0 % LAB HEMATOLOGY METHOD 07/20/2024 2:54 PM EDT [facility] Immature Granulocytes % 4 % LAB HEMATOLOGY METHOD 07/20/2024 2:54 PM EDT [facility] Neutrophils Absolute 10.36(H) 1.60 - 6.10 10*3/uL LAB HEMATOLOGY METHOD 07/20/2024 2:54 PM EDT [facility] Lymphocytes Absolute 7.66(H) 1.20 - 3.90 10*3/uL LAB HEMATOLOGY METHOD 07/20/2024 2:54 PM EDT [facility] Monocytes Absolute 1.51(H) 0.30 - 0.90 10*3/uL LAB HEMATOLOGY METHOD 07/20/2024 2:54 PM EDT [facility] Eosinophils Absolute 0.61(H) 0.00 - 0.50 10*3/uL LAB HEMATOLOGY METHOD 07/20/2024 2:54 PM EDT [facility] Basophils Absolute 0.07 0.00 - 0.10 10*3/uL LAB HEMATOLOGY METHOD 07/20/2024 2:54 PM EDT [facility] Immature Granulocytes Absolute 0.75(H) 0.00 - 0.06 10*3/uL LAB HEMATOLOGY METHOD 07/20/2024 2:54 PM EDT [facility] Blood Venous blood specimen / Unknown Venipuncture / Unknown 07/20/2024 10:40 AM EDT 07/20/2024 10:40 AM EDT Narrative [facility] - 07/20/2024 2:54 PM EDT Therapeutic decision making should be based on absolute values, rather than percentages. us Wilfredo Forte MD LAB BLOOD ORDERABLES Final Re sult [facility] [address] [place] [address] * (ABNORMAL) C-reactive protein (07/20/2024 10:40 AM EDT) CRP, Plasma 96.8(H) <=8.0 mg/L 07/20/2024 12:33 PM EDT [facility] Blood Venous blood specimen / Unknown Venipuncture / Unknown 07/20/2024 10:40 AM EDT 07/20/2024 10:40 AM EDT Narrative [facility] - 07/20/2024 12:33 PM EDT This CRP test is appropriate for assessment of infection, systemic inflammation and/or tissue injury. To assess cardiovascular disease risk order high sensitivity CRP (CRPH). us Wilfredo Forte MD LAB BLOOD ORDERABLES Final Re sult [facility] [address] [place] [address] * (ABNORMAL) Comprehensive Metabolic Panel, Plasma (07/20/2024 10:40 AM EDT) Glucose, Plasma 129(H) 74 - 99 mg/dL 07/20/2024 12:33 PM EDT [facility] BUN, Plasma 33(H) 8 - 23 mg/dL 07/20/2024 12:33 PM EDT [facility] Creatinine, Plasma 2.15(H) 0.70 - 1.20 mg/dL 07/20/2024 12:33 PM EDT [facility] BUN/Creatinine Ratio 15 07/20/2024 12:33 PM EDT [facility] Sodium, Plasma 137 136 - 145 mmol/L 07/20/2024 12:33 PM EDT [facility] Potassium, Plasma 4.4 3.6 - 4.9 mmol/L 07/20/2024 12:33 PM EDT [facility] Chloride, Plasma 104 97 - 107 mmol/L 07/20/2024 12:33 PM EDT [facility] CO2, Plasma 19(L) 22 - 29 mmol/L 07/20/2024 12:33 PM EDT [facility] Anion Gap 14 6 - 16 mmol/L 07/20/2024 12:33 PM EDT [facility] Total Calcium, Plasma 9.3 8.9 - 10.2 mg/dL 07/20/2024 12:33 PM EDT [facility] Total Protein 6.6 6.3 - 7.9 g/dL 07/20/2024 12:33 PM EDT [facility] Albumin, Plasma 3.5 3.5 - 5.2 g/dL 07/20/2024 12:33 PM EDT [facility] AST, Plasma 13 10 - 50 U/L 07/20/2024 12:33 PM EDT [facility] ALT, Plasma 13 10 - 50 U/L 07/20/2024 12:33 PM EDT [facility] Alkaline Phosphatase, Plasma 96 40 - 115 U/L 07/20/2024 12:33 PM EDT [facility] Total Bilirubin, Plasma <0.2(L) 0.2 - 1.1 mg/dL 07/20/2024 12:33 PM EDT [facility] eGFRcr 32.9 mL/min/1.7 3m*2 07/20/2024 12:33 PM EDT [facility] Comment:Reported eGFRcr in m L/min/1.73m2 is based the CKD-EPI 2020 equation that does not use a race coefficient. Blood Venous blood specimen / Unknown Venipuncture / Unknown 07/20/2024 10:40 AM EDT 07/20/2024 10:40 AM EDT us Wilfredo Forte MD LAB BLOOD ORDERABLES Final Re sult [facility] [address] [place] [address] * (ABNORMAL) Hemoglobin A1c (05/02/2024 2:46 AM EDT) Hemoglobin A1c 5.8(H) <5.7 % 05/02/2024 8:35 AM EDT [facility] Blood Venous blood specimen / Unknown Venipuncture / Unknown 05/02/2024 2:46 AM EDT 05/02/2024 2:58 AM EDT Narrative [facility] - 05/02/2024 8:35 AM EDT HA1C Interpretive Data: Diagnosis of Diabetes: Diabetic > or = 6.5% Pre-diabetic 5.7 to 6.4% Non-diabetic < or = 5.6% Glycemic Targets for Type I and Type II Diabetics: Non- Adults <7.0% Adults <6.0% Children and Adolescents <7.5% Source: [place] [employer]. Standards of medical care in diabetes,2017. Diabetes Care.2017:40 (suppl 1):S1-S135. HbA1c assay performed by an ion-exchange chromatography method that is certified traceable to the DCCT. us Regan Frank MD LAB BLOOD ORDERABLES Final Resul t [facility] [address] [place] [address] from Last 3 Months or Most Recently Relevant to Health Maintenance Additional Health Concerns Active Problems Noted Date Diagnosed Date Autogenerated Problem 07/17/2024 Autogenerated Problem 06/05/2024 Insurance [facility] MEDICAID MEDICARE Advance Directives * Full Code (Latest Code Status on File) Date Activated Date Inactivated Comments 05/02/2024 3:18 PM 05/13/2024 6:35 PM * Full Code Date Activated Date Inactivated Comments 05/02/2024 5:18 AM 05/02/2024 3:18 PM * Full Code Date Activated Date Inactivated Comments 03/26/2024 12:27 PM 04/01/2024 9:30 PM Question Answer Comments Patient has decision-making capacity? Yes Care Teams Structural Shop Helper Relationship Specialty Start Date End Date Viridiana Oropeza MD [address] [place] [address] PCP - General 03/13/22 Gerardo Mcbride [address] [place] [address] 08/23/23
--- OUTSIDE RECORDS SUMMARY | 2024-10-13 14:24 | XMS_ITS | Clinical Summary ---
Author Organization [facility] Address [address] [place] [address] Care Team Providers Care Vaccine Key Customer Leader Name Role Phone Pcp, No Primary Care [...] therelease of HIV test results or diagnoses. [id number] Allergies Active Allergy Reactions Criticality Noted [...] 2001 Immunization: Zoster (1 of 2) 2006 Depression Screening 09/28/2022 09/28/2021 Immunization: COVID-19 ( season) 2023 08/17/2021, 12/20/2020, 04/22/2020 Immunization: DTaP/Tdap/Td ( 2 - Td or Tdap) 08/25/2024 08/25/2014 Immunization: Influenza (MyC spears) (#1) 2024 01/06/2024, 03/27/2023, 02/21/2022, Additional history exists Immunization: RSV (Adult) (1 - 1-dose 75+ series) 08/23/2031 Immunization: Pneumococcal Completed 02/21/2022, Insurance [facility] care Address: [address] [address] [place] [address] MEDICARE B Care Teams Vaccine Key Customer Leader Relationship Specialty Start Date End Date Pcp, No No Address PCP - General 08/25/21
--- OUTSIDE RECORDS SUMMARY | 2024-10-13 14:24 | XMS_ITS | Encounter Summary ---
Author Organization [place] [address] Care Team Providers Care Trumpet Teacher Name Role Phone Viridiana Oropeza MD Primary Care Provider [phone] Pankaj Navarro MD Unavailable [phone] Reason for Visit * Reason Onset Date Comments Refill 07/07/2024 Percocet refill request Encounter Details Date Type Department Care Team (Late st Contact Info) Description 07/07/2024 Telephone [facility] [address] [place] [address] Viridiana Oropeza MD [address] [place] [address] Refill (Percocet refill request) Social History Tobacco Use Types Packs/Day Years Used Date Smoking Tobacco: Never Passive Smoke Exposure: Never Smokeless Tobacco: Never Alcohol Use Standard Drinks/Week Comments No 0 (1 standard drink = 0.6 oz pur e alcohol) [facility] Utilities Answer Date Recorded In the past 12 months has [employer], gas, oil, or water [employer] threatened to shut off services in your home? No 07/22/2024 Overall Financial Resource Strain (CARDIA) Answe r Date Recorded How hard is it for you to pa y for the very basics like food, housing, medical care, and heating? Not hard at all 07/22/2024 PHQ-2 Answer Date Recorded PHQ-2 Total Score 0 07/22/2024 [facility] Occupat ional [facility] - Occupational Stress Questionnaire Answer Date [...] needed for daily living? No 01/21/2020 [facility] IP Transportation Answer [...] 07/21/2024 4:08 PM Genesis Carey RN * [place] Suicide Severity Rating Scale (Q shift for [...] Richey RMA - 07/07/2024 9:54 AM EDT Pharmacy:[id number] - [place] [address] [address] [facility] [phone] Controlled Contract Updated / Signed 08/17/2022- [facility] Informed Consent Updated / Signed 08/17/2022 [...] w/ prescribing provider: 09/16/24 Pharmacy & Location: [facility] [id number] [place] [address] [address] Return Method of Communication: N/A [...] documented as of this encounter Care Teams Trumpet Teacher Relationship Specialty Start Date End Date Viridiana Oropeza MD [address] [place] [address] PCP - General 01/19/09 09/14/24 Pankaj Navarro MD [address] [place] [address] Physician Otolaryngology 09/18/23 documented as of this encounter
--- OUTSIDE RECORDS SUMMARY | 2024-10-13 14:24 | XMS_ITS | Encounter Summary ---
Author Organization [place] [address] Care Team Providers Care Management Developer Name Role Phone Viridiana Oropeza MD Primary Care Provider [phone] Pankaj Navarro MD Unavailable [phone] Encounter Details Date Type Department Care Team (Late st Contact Info) Description 06/23/2024 Results Follow-Up [facility] [address] [place] [address] Lucia Dunlap PA-C [address] [place] [address] COMPLIANCE OPIOID PANEL QUANT ONLY, URINE Social History Tobacco Use Types Packs/Day Years Used Date Smoking Tobacco: Never Passive Smoke Exposure: Never Smokeless Tobacco: Never Alcohol Use Standard Drinks/Week Comments No 0 (1 standard drink = 0.6 oz pur e alcohol) [facility] Utilities Answer Date Recorded In the past 12 months has [employer], gas, oil, or water [employer] threatened to shut off services in your home? No 07/22/2024 Overall Financial Resource Strain (CARDIA) Answe r Date Recorded How hard is it for you to pa y for the very basics like food, housing, medical care, and heating? Not hard at all 07/22/2024 PHQ-2 Answer Date Recorded PHQ-2 Total Score 0 07/22/2024 [facility] [place] [facility] Occupat ional Health - Occupational Stress [...] things needed for daily living? No 01/21/2020 [facility] IP Transportation Answer D ate Recorded [...] 07/21/2024 4:08 PM Genesis Carey RN * [place] Suicide Severity Rating Scale (Q shift for [...] documented as of this encounter Care Teams Management Developer Relationship Specialty Start Date End Date Viridiana Oropeza MD [address] [place] [address] PCP - General 01/19/09 09/14/24 Pankaj Navarro MD [address] [place] [address] Physician Otolaryngology 09/18/23 documented as of this encounter
--- NOTE | 2024-10-13 14:45 | MR_ITS ---
FINAL REPORT CLINICAL HISTORY: Patient has failed to get better with pt BILATERAL HAND NUMBNESS X 6 WEEKS 26ML PROHANCE COMPARISON: None FINDINGS: Multi planar MR imaging was obtained of the cervical spine with and without contrast. There is abnormal decreased signal throughout the cervical discs. The vertebrae are of normal height. There is no malalignment. The cervical cord demonstrates normal signal and configuration. C2-C3: There is no evidence of significant disc bulge or protrusion. There is no significant facet hypertrophy. C3-C4: There is no evidence of significant disc bulge or protrusion. There is no significant facet hypertrophy. C4-C5: There is no evidence of significant disc bulge or protrusion. There is no significant facet hypertrophy. C5-C6: Mild endplate hypertrophy. Mild diffuse disc bulge. Mild to moderate bilateral neuroforaminal narrowing. C6-C7: Mild broad-based right paracentral disc protrusion. Mild compromise right side of the spinal canal. Moderate to high-grade right neuroforaminal narrowing. C7-T1: There is no evidence of significant disc bulge or protrusion. There is no significant facet hypertrophy. There is no abnormal contrast enhancement. IMPRESSION: Disc bulge with endplate hypertrophy at C5-6 and bilateral neuroforaminal narrowing. Right paracentral disc protrusion at C6-7 with right neuroforaminal narrowing. Reviewed, Interpreted and Dictated by Ancelmo Daigle MD Transcribed by Yeni Gomes Authenticated and [facility]
[2024-10-13] MEDS: GADOTERIDOL INJ 10ML SYRINGE 6 ML IV (15:28)
[2024-10-13] MEDS: SODIUM CHLORIDE 0.9% 10ML SYR (RAD ONLY) 10 ML IV (15:28)
[2024-10-13] MEDS: GADOTERIDOL INJ 20ML SYRINGE 20 ML IV (15:28)
== END 2024-10-13 23:59 | disposition home or self-care (01) ==
LOC: RAD 14:21
PROVIDERS: PCP Family Medicine; Visit Provider Family Medicine
DX: M50.322 Other cervical disc degeneration at C5-C6 level (principal); M99.71 Connective tissue and disc stenosis of intervertebral foramina of cervical region; M50.223 Other cervical disc displacement at C6-C7 level; G89.29 Other chronic pain; R29.898 Other symptoms and signs involving the musculoskeletal system
CPT/HCPCS: 72156; A9576